=== PATIENT | female | born 1965 | race Caucasian/White ===

== ENCOUNTER 2017-08-13 10:39 | Emergency (ER) | payer MEDICAID ==
[~2017-08-13] VITALS: Ht 157.5 cm; Wt 55.0 kg
[~2017-08-13 10:39] MED LIST: ALBU8.5H4 IH; GOLYS PO; LANTUS SQ
[2017-08-13] MEDS ORDERED: morphine 4 MG/ML inj SYRINge IV ONE (10:50)
[2017-08-13] MEDS ORDERED: aspirin 81mg tab.chew PO ONE (10:50)
[2017-08-13] MEDS ORDERED: metoprolol tartrate 1mg/ml inj IV ONE (10:50)
[2017-08-13] MEDS ORDERED: nitroGLYCERIN 0.4mg SUBLingual tab SL PRN (10:50)
[2017-08-13] MEDS ORDERED: ondansetron/PF 4mg/2ml inj IV ONE (10:50)
[2017-08-13 11:06] LABS: BASOPHILS % (AUTO) 0.5 % (0-1); EOSINOPHILS # (AUTO) 0.2 X10'3 (0-0.9); EOSINOPHILS % (AUTO) 1.8 % (0-6); HEMATOCRIT 44.7 % (35.0-45.0); HEMOGLOBIN 15.4 g/dl (12.0-16.0); LYMPHOCYTES # (AUTO) 2.1 X10'3 (1.1-4.8); LYMPHOCYTES % (AUTO) 24.1 % (21-51); MEAN CORPUSCULAR HEMOGLOBIN 30.7 PG (27.0-31.0); MEAN CORPUSCULAR HGB CONC 34.4 % (33.0-36.5); MEAN CORPUSCULAR VOLUME 89.4 FL (78-98); MEAN PLATELET VOLUME 9.3 FL (7.4-10.4); MONOCYTES # (AUTO) 0.6 X10'3 (0-0.9); MONOCYTES % (AUTO) 6.6 % (2-12); NEUTROPHILS # (AUTO) 5.7 X10'3 (1.8-7.7); PLATELET COUNT 109 X10'3 (140-440); RED CELL DISTRIBUTION WIDTH 13.3 % (11.5-14.5); WHITE BLOOD COUNT 8.5 X10'3 (4.5-11.0)
[2017-08-13 11:12] LABS: INR 1.1 INR; PARTIAL THROMBOPLASTIN TIME 25 SECONDS (22-32); PROTHROMBIN TIME 11.3 SECONDS (9.0-12.0)
[2017-08-13 11:18] LABS: ALANINE AMINOTRANSFERASE 39 U/L (12-78); ALBUMIN 3.3 G/DL (3.4-5.0); ALBUMIN/GLOBULIN RATIO 0.9 (1.1-1.5); ANION GAP 10 (8-16); ASPARTATE AMINO TRANSFERASE 42 U/L (10-37); BILIRUBIN,TOTAL 0.6 MG/DL (0.1-1.0); BLOOD UREA NITROGEN 8 MG/DL (7-18); BUN/CREATININE RATIO 12.3 (6.6-38.0); CALCIUM 8.7 MG/DL (8.5-10.1); CHLORIDE 99 MMOL/L (99-107); CREATININE 0.65 MG/DL (0.40-0.90); GLUCOSE 428 MG/DL (70-104); POTASSIUM 3.6 MMOL/L (3.5-5.1); SODIUM 138 MMOL/L (135-145); TOTAL CARBON DIOXIDE 29.4 MMOL/L (24-32); TOTAL PROTEIN 7.1 G/DL (6.4-8.2); eGFR > 90 ML/MIN
[2017-08-13 11:19] LABS: ALKALINE PHOSPHATASE 177 IU/L (46-116)
[2017-08-13] MEDS ORDERED: furosemide 10 MG/1 ML 10ml inj IV ONE (11:40)
[2017-08-13] MEDS ORDERED: insulin regular, human 10 units/0.1 ml syringe IV ONE (11:40)
[2017-08-13 12:31] VITALS: BP 145/78
== END 2017-08-13 12:52 | disposition home or self-care (01) ==
LOC: ER 10:40
DX: R07.9 Chest pain, unspecified (principal); E11.65 Type 2 diabetes mellitus with hyperglycemia; I50.9 Heart failure, unspecified; I11.0 Hypertensive heart disease with heart failure; G35 Multiple sclerosis; J44.9 Chronic obstructive pulmonary disease, unspecified; M79.7 Fibromyalgia; Z98.890 Other specified postprocedural states; Z88.0 Allergy status to penicillin; Z79.4 Long term (current) use of insulin; Z90.89 Acquired absence of other organs
CPT/HCPCS: 36415; 71045; 80053; 82948; 83880; 84484; 85025; 85610; 85730; 93005; 96374; 96375; 99285; J1815; J1940; J2270; J2405; J3490

== ENCOUNTER 2017-09-05 15:48 | Emergency (ER) | payer MEDICAID ==
[~2017-09-05] VITALS: Ht 157.5 cm; Wt 54.0 kg
[2017-09-05] MEDS ORDERED: ketorolac trometh inj. 60 MG/2 ML VIAL IM ONE (16:10)
[2017-09-05] MEDS ORDERED: predniSONE 20 mg tablet PO ONE (16:10)
[2017-09-05] MEDS ORDERED: morphine 4 MG/ML inj SYRINge IM ONE (16:10)
[2017-09-05] MEDS ORDERED: PRED20TA PO (16:24)
[2017-09-05] MEDS ORDERED: IBUP-1984 PO (16:24)
[2017-09-05 17:12] VITALS: BP 151/84
== END 2017-09-05 17:00 | disposition home or self-care (01) ==
LOC: ER 15:48
DX: M53.3 Sacrococcygeal disorders, not elsewhere classified (principal); E11.9 Type 2 diabetes mellitus without complications; I50.9 Heart failure, unspecified; J44.9 Chronic obstructive pulmonary disease, unspecified; Z86.19 Personal history of other infectious and parasitic diseases; Z98.890 Other specified postprocedural states; Z90.89 Acquired absence of other organs; Z88.0 Allergy status to penicillin; Z79.899 Other long term (current) drug therapy; Z79.4 Long term (current) use of insulin
CPT/HCPCS: 93005; 96372; 99284; J1885; J2270; J7512

== ENCOUNTER 2021-04-10 00:57 | Emergency (ER) | payer MEDICAID ==
[~2021-04-10] VITALS: Ht 157.5 cm; Wt 63.6 kg
[~2021-04-10 00:57] MED LIST changes: -GOLYS PO; +INSU100V43 SQ; +SYRI-641 SUBCUT
[2021-04-10 01:18] VITALS: BP 176/92
[2021-04-10 02:04] LABS: BASOPHILS # (AUTO) 0.1 X10'3 (0-0.2); BASOPHILS % (AUTO) 0.8 % (0-1); EOSINOPHILS # (AUTO) 0.3 X10'3 (0-0.9); EOSINOPHILS % (AUTO) 3.9 % (0-6); HEMATOCRIT 45.7 % (35.0-45.0); HEMOGLOBIN 15.6 g/dl (12.0-16.0); LYMPHOCYTES # (AUTO) 2.4 X10'3 (1.1-4.8); MEAN CORPUSCULAR HEMOGLOBIN 29.5 PG (27.0-31.0); MEAN CORPUSCULAR HGB CONC 34.2 g/dL (33.0-36.5); MEAN CORPUSCULAR VOLUME 86.4 FL (78-98); MEAN PLATELET VOLUME 8.9 FL (7.4-10.4); MONOCYTES # (AUTO) 0.7 X10'3 (0-0.9); MONOCYTES % (AUTO) 8.2 % (2-12); NEUTROPHILS % (AUTO) 59.1 % (42-75); PLATELET COUNT 110 X10'3 (140-440); RED BLOOD COUNT 5.28 X10'6 (4.20-5.60); RED CELL DISTRIBUTION WIDTH 13.3 % (11.5-14.5); WHITE BLOOD COUNT 8.4 X10'3 (4.5-11.0)
[2021-04-10 02:33] LABS: ALANINE AMINOTRANSFERASE 53 U/L (12-78); ALBUMIN 3.2 G/DL (3.4-5.0); ALBUMIN/GLOBULIN RATIO 0.9 (1.1-1.5); ALKALINE PHOSPHATASE 187 IU/L (46-116); ANION GAP 10 (8-16); ASPARTATE AMINO TRANSFERASE 74 U/L (10-37); BILIRUBIN,TOTAL 0.7 MG/DL (0.1-1.0); BLOOD UREA NITROGEN 13 MG/DL (7-18); CALCIUM 8.9 MG/DL (8.5-10.1); CHLORIDE 101 MMOL/L (99-107); CREATININE 0.59 MG/DL (0.40-0.90); GLUCOSE 369 MG/DL (70-104); LIPASE 55 U/L (73-393); POTASSIUM 4.1 MMOL/L (3.5-5.1); SODIUM 137 MMOL/L (135-145); TOTAL CARBON DIOXIDE 26.2 MMOL/L (24-32); TOTAL PROTEIN 6.8 G/DL (6.4-8.2); eGFR > 90 ML/MIN
[2021-04-10 03:14] LABS: URINE HCG NEGATIVE (NEG)
[2021-04-10] MEDS ORDERED: bisacodyl 10mg suppository rectal RC ONE (03:15)
[2021-04-10 03:17] LABS: CLARITY,URINE SLIGHTLY CLOUDY (Clear); COLOR,URINE YELLOW (Yellow); GLUCOSE, URINE >=1000 mg/dl (Neg); KETONES,URINE NEGATIVE (Neg); LEUKOCYTE ESTERASE ,URINE NEGATIVE (Neg); NITRITES, URINE NEGATIVE (Neg); OCCULT BLOOD,URINE TRACE-INTACT (Neg); PH,URINE 5.5 (4.8-8.0); PROTEIN,URINE 100 mg/dl (Neg)
[2021-04-10 03:19] LABS: UA COLLECTION TYPE CLN CATCH MIDSTREAM
[2021-04-10] MEDS ORDERED: magnesium citrate 296ml oral solution PO ONE (03:35)
[2021-04-10 03:43] LABS: BACTERIA,URINE 1+ /HPF (Neg); MUCUS STRANDS FEW /LPF (Neg); SQUAMOUS EPITHELIAL CELL,UR MODERATE /LPF (FEW); TRANSITIONAL EPI CELLS,URINE FEW /HPF
== END 2021-04-10 03:59 | disposition home or self-care (01) ==
LOC: ER 00:58
DX: K59.00 Constipation, unspecified (principal); R10.84 Generalized abdominal pain; I50.9 Heart failure, unspecified; J44.9 Chronic obstructive pulmonary disease, unspecified; F17.200 Nicotine dependence, unspecified, uncomplicated; E11.9 Type 2 diabetes mellitus without complications; Z86.19 Personal history of other infectious and parasitic diseases; Z90.89 Acquired absence of other organs; Z98.890 Other specified postprocedural states; Z88.0 Allergy status to penicillin; Z79.4 Long term (current) use of insulin; Z79.899 Other long term (current) drug therapy
CPT/HCPCS: 36415; 74018; 80053; 81001; 81025; 83690; 85025; 87088; 99284

== ENCOUNTER 2021-08-11 19:11 | Emergency (ER) | payer MEDICAID ==
[~2021-08-11] VITALS: Ht 157.5 cm; Wt 57.7 kg
[2021-08-11] MEDS ORDERED: acetaminophen 325mg tablet PO STA (19:18)
[2021-08-11] MEDS ORDERED: CefTRIAXone 2gm/NS 100ml IVPB 100 ML IV ONE (19:20)
[2021-08-11] MEDS ORDERED: Insulin Reg/NS 100units/100mL 100 ML IV PRN (19:20)
[2021-08-11] MEDS ORDERED: normal saline 1000ML IV soln IV ONE ×2 (19:20→21:25)
[2021-08-11 19:44] LABS: BASOPHILS % (AUTO) 0.2 % (0-1); EOSINOPHILS % (AUTO) 0.2 % (0-6); HEMATOCRIT 45.5 % (35.0-45.0); HEMOGLOBIN 15.5 g/dl (12.0-16.0); LYMPHOCYTES # (AUTO) 0.7 X10'3 (1.1-4.8); LYMPHOCYTES % (AUTO) 5.2 % (21-51); MEAN CORPUSCULAR HEMOGLOBIN 29.3 PG (27.0-31.0); MEAN CORPUSCULAR VOLUME 86.2 FL (78-98); MEAN PLATELET VOLUME 10.3 FL (7.4-10.4); MONOCYTES # (AUTO) 0.8 X10'3 (0-0.9); NEUTROPHILS # (AUTO) 11.2 X10'3 (1.8-7.7); NEUTROPHILS % (AUTO) 88.4 % (42-75); PLATELET COUNT 75 X10'3 (140-440); RED BLOOD COUNT 5.28 X10'6 (4.20-5.60); RED CELL DISTRIBUTION WIDTH 13.5 % (11.5-14.5); WHITE BLOOD COUNT 12.7 X10'3 (4.5-11.0)
[2021-08-11 20:01] LABS: ABG BASE EXCESS -2.5 mmol/L (-2.0-2.0); ABG HCO3 20.2 mmol/L (22.0-26.0); ABG OXYGEN SATURATION 94.3 % (94-97); ABG PCO2 (T) 30.3 mmHg (32.0-45.0); ABG PO2 (T) 67.6 mmHg (75.0-100.0); ALLEN'S TEST POSITIVE; FCOHb 1.7 % (0.0-3.9); FMetHb 0.1 % (0.0-1.5); FO2Hb 92.6 % (94-97); PATIENT TEMPERATURE 37.2; TOTAL HEMOGLOBIN 15.2 G/dl (12.0-16.0)
[2021-08-11 20:02] LABS: PLATELET ESTIMATE DECREASED
[2021-08-11 20:04] LABS: LARGE PLATELETS FEW
[2021-08-11 20:10] LABS: ALANINE AMINOTRANSFERASE 41 U/L (12-78); ALBUMIN 3.1 G/DL (3.4-5.0); ALBUMIN/GLOBULIN RATIO 0.8 (1.1-1.5); ALKALINE PHOSPHATASE 102 IU/L (46-116); ANION GAP 10 (8-16); ASPARTATE AMINO TRANSFERASE 58 U/L (10-37); BILIRUBIN,TOTAL 1.3 MG/DL (0.1-1.0); BLOOD UREA NITROGEN 13 MG/DL (7-18); CHLORIDE 105 MMOL/L (99-107); CREATININE 0.62 MG/DL (0.40-0.90); GLUCOSE 296 MG/DL (70-104); MAGNESIUM 1.5 MG/DL (1.5-2.4); POTASSIUM 3.6 MMOL/L (3.5-5.1); SODIUM 138 MMOL/L (135-145); TOTAL PROTEIN 6.8 G/DL (6.4-8.2); eGFR > 90 ML/MIN
[2021-08-11] MEDS ORDERED: normal saline 1000ML IV soln IVB ONE (21:05)
[2021-08-11] MEDS ORDERED: dexamethasone sod phosphate 10mg/ml inj IV STA (21:25)
[2021-08-11 23:10] VITALS: BP 157/93
== END 2021-08-12 01:45 | disposition home or self-care (01) ==
LOC: ER 19:11
DX: U07.1 COVID-19 (principal); E11.9 Type 2 diabetes mellitus without complications; I50.9 Heart failure, unspecified; J44.9 Chronic obstructive pulmonary disease, unspecified; Z88.0 Allergy status to penicillin
CPT/HCPCS: 36415; 36600; 71045; 80053; 82803; 82948; 83605; 83735; 84145; 85008; 85018; 85025; 87040; 87502; 87503; 87635; 93005; 96365; 96375; 99285; C9803; J0696; J1100; J7030

== ENCOUNTER 2021-10-07 18:25 | Emergency (ER) | payer MEDICAID ==
[~2021-10-07] VITALS: Ht 157.5 cm; Wt 58.2 kg
[2021-10-07 18:31] VITALS: BP 136/84
--- NOTE | 2021-10-08 00:10 | NUR ---
PT ROOMED IN BED 11. ASSUMED CARE OF PT .
[2021-10-08] MEDS ORDERED: BACI28.42 TOP (00:23)
[2021-10-08] MEDS ORDERED: bacitracin 15gm ointment TP ONE (00:25)
== END 2021-10-08 02:30 | disposition home or self-care (01) ==
LOC: ER 18:26
DX: S90.822S Blister (nonthermal), left foot, sequela (principal); S90.821S Blister (nonthermal), right foot, sequela; X58.XXXS Exposure to other specified factors, sequela; I11.0 Hypertensive heart disease with heart failure; J44.9 Chronic obstructive pulmonary disease, unspecified; E11.9 Type 2 diabetes mellitus without complications; Z88.0 Allergy status to penicillin; Z79.899 Other long term (current) drug therapy; Z79.84 Long term (current) use of oral hypoglycemic drugs
CPT/HCPCS: 99284; A6446; A6449

== ENCOUNTER 2021-11-08 07:38 | Inpatient (IN) | payer MEDICAID ==
[~2021-11-08] VITALS: Ht 157.5 cm; Wt 54.5 kg
[~2021-11-08 07:38] MED LIST changes: +BACI28.42 TOP
[2021-11-08] MEDS ORDERED: LIDOcaine 40mg/ml topical solution MM ONE (10:25)
[2021-11-08] MEDS ORDERED: vancomycin/NS 1 GM ADD-VANTAGE 250 ML IV ONE (10:25)
[2021-11-08] MEDS ORDERED: LIDOcaine 4% (40 mg/ml) topical solution 50ml MM ONE (10:45)
[2021-11-08 11:23] LABS: BASOPHILS % (AUTO) 0.5 % (0-1); EOSINOPHILS # (AUTO) 0.2 X10'3 (0-0.9); EOSINOPHILS % (AUTO) 2.3 % (0-6); HEMATOCRIT 41.2 % (35.0-45.0); LYMPHOCYTES # (AUTO) 1.9 X10'3 (1.1-4.8); LYMPHOCYTES % (AUTO) 20.2 % (21-51); MEAN CORPUSCULAR HEMOGLOBIN 28.7 PG (27.0-31.0); MEAN CORPUSCULAR VOLUME 84.5 FL (78-98); MEAN PLATELET VOLUME 8.5 FL (7.4-10.4); MONOCYTES # (AUTO) 0.8 X10'3 (0-0.9); MONOCYTES % (AUTO) 8.5 % (2-12); NEUTROPHILS # (AUTO) 6.6 X10'3 (1.8-7.7); NEUTROPHILS % (AUTO) 68.5 % (42-75); PLATELET COUNT 113 X10'3 (140-440); RED BLOOD COUNT 4.88 X10'6 (4.20-5.60); RED CELL DISTRIBUTION WIDTH 13.8 % (11.5-14.5); WHITE BLOOD COUNT 9.6 X10'3 (4.5-11.0)
[2021-11-08 11:36] LABS: ALANINE AMINOTRANSFERASE 37 U/L (12-78); ALBUMIN 2.7 G/DL (3.4-5.0); ALBUMIN/GLOBULIN RATIO 0.6 (1.1-1.5); ALKALINE PHOSPHATASE 110 IU/L (46-116); ANION GAP 8 (8-16); ASPARTATE AMINO TRANSFERASE 54 U/L (10-37); BILIRUBIN,TOTAL 0.6 MG/DL (0.1-1.0); BLOOD UREA NITROGEN 13 MG/DL (7-18); BUN/CREATININE RATIO 22.8 (6.6-38.0); CALCIUM 9.2 MG/DL (8.5-10.1); CHLORIDE 98 MMOL/L (99-107); CREATININE 0.57 MG/DL (0.40-0.90); GLUCOSE 361 MG/DL (70-104); POTASSIUM 3.3 MMOL/L (3.5-5.1); SODIUM 134 MMOL/L (135-145); TOTAL CARBON DIOXIDE 28.4 MMOL/L (24-32); TOTAL PROTEIN 7.1 G/DL (6.4-8.2); eGFR > 90 ML/MIN
[2021-11-08] MEDS ORDERED: MESSAGE TO PHARMACY PO ONE (15:10)
[2021-11-08] MEDS ORDERED: HYDROcodone/acetaminophen 5mg/325mg tablet PO PRN (15:10)
[2021-11-08] MEDS ORDERED: insulin Lispro (HumaLOG) vial - multi-dose SQ SCH (15:10)
[2021-11-08] MEDS ORDERED: morphine 2 MG/ML inj. syringe IV PRN ×2 (15:10)
[2021-11-08] MEDS ORDERED: glucagon, human recombinant 1mg kit SUBCUT PRN (15:10)
[2021-11-08] MEDS ORDERED: DEXTROSE 15 GM of carb/4 tabs (each vial/BOTTLE has 4 tablets) PO PRN ×2 (15:10)
[2021-11-08] MEDS ORDERED: magnesium hydroxide 30ml (MOM) UD suspension PO PRN (15:10)
[2021-11-08] MEDS ORDERED: mag hydrox/Alum hydrox/simeth 30ml oral suspension PO PRN (15:10)
[2021-11-08] MEDS ORDERED: ondansetron/PF 4mg/2ml inj IV PRN (15:10)
[2021-11-08] MEDS ORDERED: HYDROcodone/acetaminophen 10/325mg tab PO PRN (15:10)
[2021-11-08] MEDS ORDERED: acetaminophen 325mg tablet PO PRN ×2 (15:10)
[2021-11-08] MEDS ORDERED: dextrose 50%-water 50ml dispensing syringe IV PRN ×2 (15:10)
[2021-11-08] MEDS: normal saline 1000ml 1,000 ML IV SCH ×2 (15:16→18:04)
[2021-11-08 15:59] LABS: HEMOGLOBIN A1C 10.2 % (4.5-6.2)
[2021-11-08] MEDS ORDERED: ALBU2.5V12 NEB (16:23)
[2021-11-08] MEDS ORDERED: ALBU8.5H17 INH (16:23)
--- NOTE | 2021-11-08 18:17 | NUR ---
left message with dietary, dinner tray is missing
[2021-11-08] MEDS: docusate sod 100mg capsule PO SCH (19:13)
[2021-11-08] MEDS ORDERED: insulin glargine (Lantus) pen - multi-dose SQ SCH (21:00)
[2021-11-08] MEDS: vancomycin/NS 1 GM ADD-VANTAGE 250 ML IV SCH (23:27)
[2021-11-09 01:47] LABS: BASOPHILS # (AUTO) 0.1 X10'3 (0-0.2); BASOPHILS % (AUTO) 0.8 % (0-1); EOSINOPHILS # (AUTO) 0.4 X10'3 (0-0.9); HEMATOCRIT 37.1 % (35.0-45.0); HEMOGLOBIN 12.5 g/dl (12.0-16.0); LYMPHOCYTES # (AUTO) 1.8 X10'3 (1.1-4.8); LYMPHOCYTES % (AUTO) 20.2 % (21-51); MEAN CORPUSCULAR HEMOGLOBIN 28.7 PG (27.0-31.0); MEAN CORPUSCULAR HGB CONC 33.7 g/dL (33.0-36.5); MEAN CORPUSCULAR VOLUME 85.1 FL (78-98); MEAN PLATELET VOLUME 8.2 FL (7.4-10.4); MONOCYTES # (AUTO) 0.8 X10'3 (0-0.9); MONOCYTES % (AUTO) 8.8 % (2-12); NEUTROPHILS # (AUTO) 5.8 X10'3 (1.8-7.7); NEUTROPHILS % (AUTO) 66.2 % (42-75); PLATELET COUNT 107 X10'3 (140-440); RED BLOOD COUNT 4.36 X10'6 (4.20-5.60); RED CELL DISTRIBUTION WIDTH 13.8 % (11.5-14.5); WHITE BLOOD COUNT 8.8 X10'3 (4.5-11.0)
[2021-11-09 02:02] LABS: ALBUMIN 2.3 G/DL (3.4-5.0); ANION GAP 10 (8-16); BLOOD UREA NITROGEN 10 MG/DL (7-18); BUN/CREATININE RATIO 22.7 (6.6-38.0); CALCIUM 8.3 MG/DL (8.5-10.1); CHLORIDE 103 MMOL/L (99-107); CREATININE 0.44 MG/DL (0.40-0.90); GLUCOSE 214 MG/DL (70-104); POTASSIUM 3.3 MMOL/L (3.5-5.1); SODIUM 138 MMOL/L (135-145); TOTAL CARBON DIOXIDE 25.5 MMOL/L (24-32); eGFR > 90 ML/MIN
[2021-11-09] MEDS ORDERED: potassium Cl 20 mEq SR tablet PO PRN ×2 (02:25)
[2021-11-09] MEDS ORDERED: potassium Cl 40MEQ/1/2NS 520ml 520 ML IV PRN ×2 (02:25)
[2021-11-09] MEDS ORDERED: potassium cl 20mEq in 1/2 NS 1,000 ML IV PRN (03:10)
[2021-11-09] MEDS: docusate sod 100mg capsule PO SCH (07:06)
[2021-11-09] MEDS ORDERED: K and/or MAG REPLACEMENT MC SCH (08:00)
[2021-11-09] MEDS ORDERED: enoxaparin 40mg/0.4ml syringe SUBCUT SCH (08:00)
--- NOTE | 2021-11-09 10:32 | NUR ---
WOUND CARE NURSE CONSULTED/TREATED PT. THEY RECOMMENDED DIFLUCAN DOSE PRIOR TO D/C FOR PT, WELL , 5 ABD BANDAGES, AND GAUZE TO BE SENT HOME WITH PT.
[2021-11-09] MEDS: vancomycin/NS 1 GM ADD-VANTAGE 250 ML IV SCH (11:10)
[2021-11-09] MEDS: normal saline 1000ml 1,000 ML IV SCH (11:18)
[2021-11-09] MEDS ORDERED: FLUC200T PO (12:41)
[2021-11-09] MEDS ORDERED: CLIN300C53 PO (12:41)
--- NOTE | 2021-11-09 13:35 | NUR ---
DIABETIC FOOT CARE EDUCATION PROVIDED BY WOUND CARE * Wash your feet daily with lukewarm water and soap. * Dry your feet well, especially between the toes. * Keep the skin moisturized with lotion, but do not apply it between the toes. * Check your feet for blisters, cuts or sores. * Use an emery board to shape your toenails even with the ends of your toes. * Change daily into clean, soft socks or stockings, not too big or too small. * Keep your feet warm and dry. * Preferably wear special padded socks and shoes that fit well. * Never walk barefoot indoors or outdoors. * Examine your shoes everyday for cracks, fer, nails or anything that could hurt your feet. * Tell your doctor if you find any of these problems or have any concerns after examining your feet. Addendum: 11/09/21 at 1335 by Aminta Lopez RN Amended: Links added.
[2021-11-09 13:43] VITALS: BP 128/82
[2021-11-09] MEDS ORDERED: VANCOMYCIN LEVEL IV ONE (22:30)
== END 2021-11-09 13:43 | disposition home or self-care (01) | DRG 385 ==
LOC: ER 07:38 → ED HOLD 15:10 → UNDOADMIN 15:10 → ED HOLD 11-09 09:36 → UNDODISIN 11-09 13:43
PROVIDERS: ADMIT Internal Medicine; ATTEND Internal Medicine
DX: N61.1 Abscess of the breast and nipple (principal); B37.89 Other sites of candidiasis; E11.9 Type 2 diabetes mellitus without complications; J44.9 Chronic obstructive pulmonary disease, unspecified; T63.301A Toxic effect of unspecified spider venom, accidental (unintentional), initial encounter; Z79.4 Long term (current) use of insulin; Z87.891 Personal history of nicotine dependence; Y92.89 Other specified places as the place of occurrence of the external cause; Z88.0 Allergy status to penicillin; Z79.899 Other long term (current) drug therapy
CPT/HCPCS: 36415; 80048; 80053; 82948; 83036; 83605; 85025; 87040; 87070; 87077; 87186; 96365; 99285; A6449; G0378; J1650; J1815; J3370; J3480; J7030

== ENCOUNTER 2022-01-30 10:22 | Emergency (ER) | payer MEDICAID ==
[~2022-01-30] VITALS: Ht 157.5 cm; Wt 59.0 kg
[~2022-01-30 10:22] MED LIST changes: +ALBU2.5V12 NEB; -ALBU8.5H4 IH; -BACI28.42 TOP; +FLUC200T PO; -SYRI-641 SUBCUT
[2022-01-30 12:13] VITALS: BP 126/70
[2022-01-30] MEDS ORDERED: SULF1TAB45 PO ×2 (12:53)
== END 2022-01-30 13:31 | disposition home or self-care (01) ==
LOC: ER 10:22
DX: L08.9 Local infection of the skin and subcutaneous tissue, unspecified (principal); I50.9 Heart failure, unspecified; J43.9 Emphysema, unspecified; E11.9 Type 2 diabetes mellitus without complications; Z86.19 Personal history of other infectious and parasitic diseases; Z90.89 Acquired absence of other organs; Z98.890 Other specified postprocedural states; Z88.0 Allergy status to penicillin; Z79.4 Long term (current) use of insulin; Z79.2 Long term (current) use of antibiotics; Z79.899 Other long term (current) drug therapy
CPT/HCPCS: 82948; 99283; 99285

== ENCOUNTER 2022-01-31 16:21 | Inpatient (IN) | payer MEDICAID ==
[~2022-01-31] VITALS: Ht 157.5 cm; Wt 56.8 kg
[~2022-01-31 16:21] MED LIST changes: +SULF1TAB45 PO
[2022-01-31] MEDS ORDERED: acetaminophen 325mg tablet PO STA (16:23)
[2022-01-31] MEDS ORDERED: normal saline 1000ML IV soln IV ONE (16:25)
[2022-01-31] MEDS ORDERED: CefTRIAXone 2gm/D5W 50ml BAG 50 ML IV ONE (16:25)
[2022-01-31 16:59] LABS: COLOR,URINE YELLOW (Yellow); GLUCOSE, URINE >=1000 mg/dl (Neg); KETONES,URINE NEGATIVE (Neg); LEUKOCYTE ESTERASE ,URINE NEGATIVE (Neg); NITRITES, URINE NEGATIVE (Neg); OCCULT BLOOD,URINE SMALL (Neg); PROTEIN,URINE 100 mg/dl (Neg)
[2022-01-31 17:01] LABS: UA COLLECTION TYPE STRAIGHT CATH
[2022-01-31 17:02] LABS: CLARITY,URINE SLIGHTLY CLOUDY (Clear)
[2022-01-31 17:05] LABS: BASOPHILS # (AUTO) 0.1 X10'3 (0-0.2); EOSINOPHILS % (AUTO) 0.6 % (0-6); HEMATOCRIT 44.2 % (35.0-45.0); HEMOGLOBIN 14.8 g/dl (12.0-16.0); LYMPHOCYTES # (AUTO) 0.7 X10'3 (1.1-4.8); LYMPHOCYTES % (AUTO) 9.8 % (21-51); MEAN CORPUSCULAR HEMOGLOBIN 28.2 PG (27.0-31.0); MEAN CORPUSCULAR HGB CONC 33.4 g/dL (33.0-36.5); MEAN CORPUSCULAR VOLUME 84.4 FL (78-98); MEAN PLATELET VOLUME 8.6 FL (7.4-10.4); MONOCYTES # (AUTO) 0.4 X10'3 (0-0.9); MONOCYTES % (AUTO) 5.2 % (2-12); NEUTROPHILS # (AUTO) 6.2 X10'3 (1.8-7.7); NEUTROPHILS % (AUTO) 82.4 % (42-75); PLATELET COUNT 121 X10'3 (140-440); RED BLOOD COUNT 5.24 X10'6 (4.20-5.60); RED CELL DISTRIBUTION WIDTH 13.8 % (11.5-14.5); WHITE BLOOD COUNT 7.5 X10'3 (4.5-11.0)
[2022-01-31 17:06] LABS: ALANINE AMINOTRANSFERASE 20 U/L (12-78); ALBUMIN 2.7 G/DL (3.4-5.0); ALBUMIN/GLOBULIN RATIO 0.6 (1.1-1.5); ALKALINE PHOSPHATASE 94 IU/L (46-116); ANION GAP 12 (8-16); ASPARTATE AMINO TRANSFERASE 39 U/L (10-37); BILIRUBIN,TOTAL 0.8 MG/DL (0.1-1.0); BLOOD UREA NITROGEN 8 MG/DL (7-18); BUN/CREATININE RATIO 12.9 (6.6-38.0); CALCIUM 8.8 MG/DL (8.5-10.1); CHLORIDE 95 MMOL/L (99-107); CREATININE 0.62 MG/DL (0.40-0.90); GLUCOSE 258 MG/DL (70-104); MAGNESIUM 1.6 MG/DL (1.5-2.4); POTASSIUM 3.7 MMOL/L (3.5-5.1); SODIUM 132 MMOL/L (135-145); TOTAL CARBON DIOXIDE 25.3 MMOL/L (24-32); TOTAL PROTEIN 7.2 G/DL (6.4-8.2); eGFR > 90 ML/MIN
[2022-01-31 17:06] LABS: SQUAMOUS EPITHELIAL CELL,UR FEW /LPF (FEW)
[2022-01-31 17:09] LABS: BACTERIA,URINE FEW /HPF (Neg); WBC,URINE 0-4 /HPF (0-4)
[2022-01-31] MEDS ORDERED: HYDROmorphone inj. 0.5 MG/0.5 ML DISP.SYRIN IV PRN (17:20)
[2022-01-31] MEDS ORDERED: HYDROmorphone/PF 0.2 MG/ML SYRINGE IV PRN (17:20)
[2022-01-31] MEDS ORDERED: bisacodyl 10mg suppository rectal RC PRN (17:20)
[2022-01-31] MEDS ORDERED: ondansetron/PF 4mg/2ml inj IV PRN (17:20)
[2022-01-31] MEDS ORDERED: magnesium hydroxide 30ml (MOM) UD suspension PO PRN (17:20)
[2022-01-31] MEDS ORDERED: mag hydrox/Alum hydrox/simeth 30ml oral suspension PO PRN (17:20)
[2022-01-31] MEDS ORDERED: HYDROcodone/acetaminophen 10/325mg tab PO PRN (17:20)
[2022-01-31] MEDS ORDERED: PERFLUTREN PROTEIN-A MICROSPHR (Optison) 0.22 MG/ML 3ML VIAL IV ONE (17:20)
[2022-01-31] MEDS ORDERED: magnesium 4gm in 100ml NS 100 ML IV PRN (17:20)
[2022-01-31] MEDS ORDERED: acetaminophen 325mg tablet PO PRN ×2 (17:20)
[2022-01-31] MEDS ORDERED: potassium Cl 40MEQ/1/2NS 520ml 520 ML IV PRN (17:20)
[2022-01-31] MEDS ORDERED: magnesium Cl slow-release 64mg tablet PO PRN (17:20)
[2022-01-31] MEDS: normal saline 1000ml 1,000 ML IV SCH (17:20)
[2022-01-31] MEDS ORDERED: ondansetron 4mg rapidly disintigrating tab PO PRN (17:20)
[2022-01-31] MEDS ORDERED: potassium Cl 20 mEq SR tablet PO PRN ×2 (17:20)
--- NOTE | 2022-01-31 17:40 | NUR ---
Dr Mercado at bedside to assess patient at this time, aware of HR 145, and temp 104 via bladder. Patient groaning, MD akhil to enter additional orders all safety measures in place.
[2022-01-31 17:56] LABS: PHOSPHORUS 1.9 MG/DL (2.3-4.5)
[2022-01-31] MEDS ORDERED: azithromycin/NS 500mg/250ml 250 ML IV ONE (18:03)
--- NOTE | 2022-01-31 19:10 | NUR ---
patson administration time incorrect
[2022-01-31] MEDS: K and/or MAG REPLACEMENT MC SCH (19:38)
[2022-01-31] MEDS ORDERED: temazepam 15mg capsule PO PRN (21:00)
[2022-01-31] MEDS ORDERED: dextrose 50%-water 50ml dispensing syringe IV PRN ×2 (21:30)
[2022-01-31] MEDS ORDERED: DEXTROSE 15 GM of carb/4 tabs (each vial/BOTTLE has 4 tablets) PO PRN ×2 (21:30)
[2022-01-31] MEDS ORDERED: glucagon, human recombinant 1mg kit SUBCUT PRN (21:30)
[2022-01-31] MEDS ORDERED: MESSAGE TO PHARMACY PO ONE (21:30)
[2022-01-31 21:48] LABS: HEMOGLOBIN A1C 11.5 % (4.5-6.2)
[2022-01-31] MEDS: docusate sod 100mg capsule PO SCH (23:13)
[2022-01-31] MEDS: oseltamivir phos 75mg capsule PO SCH (23:13)
[2022-01-31] MEDS: enoxaparin 40mg/0.4ml syringe SQ SCH (23:15)
[2022-02-01] MEDS: normal saline 1000ml 1,000 ML IV SCH ×3 (03:20→23:56)
[2022-02-01 04:31] LABS: BASOPHILS % (AUTO) 0.3 % (0-1); EOSINOPHILS % (AUTO) 0 % (0-6); HEMATOCRIT 39.6 % (35.0-45.0); HEMOGLOBIN 13.1 g/dl (12.0-16.0); LYMPHOCYTES # (AUTO) 1.1 X10'3 (1.1-4.8); LYMPHOCYTES % (AUTO) 6.4 % (21-51); MEAN CORPUSCULAR HEMOGLOBIN 27.9 PG (27.0-31.0); MEAN CORPUSCULAR HGB CONC 33.2 g/dL (33.0-36.5); MEAN CORPUSCULAR VOLUME 84.3 FL (78-98); MEAN PLATELET VOLUME 8.7 FL (7.4-10.4); MONOCYTES # (AUTO) 1.1 X10'3 (0-0.9); MONOCYTES % (AUTO) 6.1 % (2-12); NEUTROPHILS # (AUTO) 15.7 X10'3 (1.8-7.7); NEUTROPHILS % (AUTO) 87.2 % (42-75); PLATELET COUNT 112 X10'3 (140-440); RED CELL DISTRIBUTION WIDTH 13.8 % (11.5-14.5)
[2022-02-01 04:46] LABS: ALANINE AMINOTRANSFERASE 15 U/L (12-78); ALBUMIN 2.1 G/DL (3.4-5.0); ALBUMIN/GLOBULIN RATIO 0.6 (1.1-1.5); ALKALINE PHOSPHATASE 81 IU/L (46-116); ANION GAP 9 (8-16); ASPARTATE AMINO TRANSFERASE 34 U/L (10-37); BILIRUBIN,TOTAL 0.8 MG/DL (0.1-1.0); BLOOD UREA NITROGEN 10 MG/DL (7-18); BUN/CREATININE RATIO 16.7 (6.6-38.0); CALCIUM 7.6 MG/DL (8.5-10.1); CHLORIDE 100 MMOL/L (99-107); GLUCOSE 228 MG/DL (70-104); MAGNESIUM 1.5 MG/DL (1.5-2.4); SODIUM 134 MMOL/L (135-145); TOTAL CARBON DIOXIDE 25.2 MMOL/L (24-32); TOTAL PROTEIN 5.9 G/DL (6.4-8.2); eGFR > 90 ML/MIN
[2022-02-01] MEDS: K and/or MAG REPLACEMENT MC SCH ×2 (07:00→20:00)
[2022-02-01] MEDS: docusate sod 100mg capsule PO SCH ×2 (09:12→22:15)
[2022-02-01] MEDS: azithromycin/NS 500mg/250ml 250 ML IV SCH (09:14)
[2022-02-01] MEDS: CefTRIAXone/D5W-Rocephin 1gm 50 ML IV SCH (09:14)
[2022-02-01] MEDS: insulin Lispro (HumaLOG) vial - multi-dose SQ SCH ×2 (09:20→13:25)
[2022-02-01] MEDS: oseltamivir phos 75mg capsule PO SCH ×2 (09:22→22:16)
[2022-02-01] MEDS: ipratropium/albuterol 3ml nebule NEB PRN (11:15)
--- NOTE | 2022-02-01 13:39 | NUR ---
Wound care in pt room at this time, they are working on her right leg wound.
[2022-02-01] MEDS: enoxaparin 40mg/0.4ml syringe SQ SCH (22:16)
[2022-02-01] MEDS: nystatin 15 GM powder TP SCH (22:20)
[2022-02-01] MEDS: insulin glargine (Lantus) pen - multi-dose SQ SCH (23:34)
[2022-02-02 04:38] LABS: BASOPHILS % (AUTO) 0.2 % (0-1); EOSINOPHILS # (AUTO) 0.1 X10'3 (0-0.9); EOSINOPHILS % (AUTO) 1.2 % (0-6); HEMOGLOBIN 12.6 g/dl (12.0-16.0); LYMPHOCYTES # (AUTO) 1.9 X10'3 (1.1-4.8); LYMPHOCYTES % (AUTO) 15.4 % (21-51); MEAN CORPUSCULAR HEMOGLOBIN 28.7 PG (27.0-31.0); MEAN CORPUSCULAR VOLUME 84.2 FL (78-98); MEAN PLATELET VOLUME 8.4 FL (7.4-10.4); MONOCYTES # (AUTO) 0.6 X10'3 (0-0.9); NEUTROPHILS # (AUTO) 9.4 X10'3 (1.8-7.7); NEUTROPHILS % (AUTO) 78.2 % (42-75); PLATELET COUNT 102 X10'3 (140-440); RED BLOOD COUNT 4.39 X10'6 (4.20-5.60); RED CELL DISTRIBUTION WIDTH 14.1 % (11.5-14.5)
[2022-02-02 05:00] LABS: ALBUMIN 2.1 G/DL (3.4-5.0); ALBUMIN/GLOBULIN RATIO 0.5 (1.1-1.5); ALKALINE PHOSPHATASE 85 IU/L (46-116); ANION GAP 8 (8-16); ASPARTATE AMINO TRANSFERASE 30 U/L (10-37); BILIRUBIN,TOTAL 0.4 MG/DL (0.1-1.0); BLOOD UREA NITROGEN 18 MG/DL (7-18); CALCIUM 8.1 MG/DL (8.5-10.1); CHLORIDE 101 MMOL/L (99-107); CREATININE 0.62 MG/DL (0.40-0.90); GLUCOSE 206 MG/DL (70-104); MAGNESIUM 1.7 MG/DL (1.5-2.4); POTASSIUM 3.5 MMOL/L (3.5-5.1); SODIUM 133 MMOL/L (135-145); TOTAL CARBON DIOXIDE 24.5 MMOL/L (24-32); eGFR > 90 ML/MIN
[2022-02-02 06:04] LABS: ALANINE AMINOTRANSFERASE 16 U/L (12-78)
[2022-02-02 07:12] VITALS: BP 126/73
--- NOTE | 2022-02-02 07:12 | NUR ---
Patient in room [facility]. I have received report from INTEGRATED CAMPAIGN MANAGER and had the opportunity to ask questions and assume patient care.
[2022-02-02] MEDS: K and/or MAG REPLACEMENT MC SCH ×2 (08:00→20:00)
[2022-02-02] MEDS: docusate sod 100mg capsule PO SCH ×2 (08:00→21:30)
[2022-02-02] MEDS: CefTRIAXone/D5W-Rocephin 1gm 50 ML IV SCH (09:32)
[2022-02-02] MEDS: nystatin 15 GM powder TP SCH ×3 (09:35→21:33)
[2022-02-02] MEDS: oseltamivir phos 75mg capsule PO SCH ×2 (09:35→21:30)
[2022-02-02] MEDS: azithromycin/NS 500mg/250ml 250 ML IV SCH (09:38)
[2022-02-02] MEDS: insulin Lispro (HumaLOG) vial - multi-dose SQ SCH ×2 (14:30→19:31)
[2022-02-02] MEDS: normal saline 1000ml 1,000 ML IV SCH ×2 (15:46→19:20)
[2022-02-02] MEDS: HYDROcodone/acetaminophen 5mg/325mg tablet PO PRN (15:47)
[2022-02-02 18:00] VITALS: BP 141/68
--- NOTE | 2022-02-02 18:35 | NUR ---
Patient in room [facility]. I have received report from Guerda LANDRY and had the opportunity to ask questions and assume patient care.
--- NOTE | 2022-02-02 18:40 | NUR ---
All cares given to patient dressing changed. norco x1 for pain in right leg. Report given to Connie LANDRY
[2022-02-02] MEDS: insulin glargine (Lantus) pen - multi-dose SQ SCH (21:00)
--- NOTE | 2022-02-02 21:30 | NUR ---
Patient had a low blood sugar of 51. Gave dextrose 25gm along with an cheese and crackers and a sandwich.
[2022-02-02] MEDS: enoxaparin 40mg/0.4ml syringe SQ SCH (21:32)
[2022-02-02 22:00] VITALS: BP 149/61
[2022-02-03] MEDS: normal saline 1000ml 1,000 ML IV SCH ×3 (05:20→23:04)
--- NOTE | 2022-02-03 06:15 | NUR ---
Problems reprioritized. Patient report given, questions answered & plan of care reviewed with Daniela LANDRY.
[2022-02-03 06:44] LABS: BASOPHILS # (AUTO) 0.1 X10'3 (0-0.2); BASOPHILS % (AUTO) 0.7 % (0-1); EOSINOPHILS # (AUTO) 0.1 X10'3 (0-0.9); EOSINOPHILS % (AUTO) 1.3 % (0-6); HEMATOCRIT 39.3 % (35.0-45.0); HEMOGLOBIN 13.2 g/dl (12.0-16.0); LYMPHOCYTES # (AUTO) 1.5 X10'3 (1.1-4.8); MEAN CORPUSCULAR HEMOGLOBIN 28.4 PG (27.0-31.0); MEAN CORPUSCULAR HGB CONC 33.5 g/dL (33.0-36.5); MEAN CORPUSCULAR VOLUME 84.7 FL (78-98); MEAN PLATELET VOLUME 9.1 FL (7.4-10.4); MONOCYTES # (AUTO) 0.5 X10'3 (0-0.9); MONOCYTES % (AUTO) 5.3 % (2-12); NEUTROPHILS # (AUTO) 6.4 X10'3 (1.8-7.7); NEUTROPHILS % (AUTO) 74.7 % (42-75); PLATELET COUNT 112 X10'3 (140-440); RED BLOOD COUNT 4.65 X10'6 (4.20-5.60); RED CELL DISTRIBUTION WIDTH 14.2 % (11.5-14.5); WHITE BLOOD COUNT 8.5 X10'3 (4.5-11.0)
[2022-02-03 07:00] VITALS: BP 150/90
[2022-02-03 07:34] LABS: ALANINE AMINOTRANSFERASE 12 U/L (12-78); ALBUMIN 2.1 G/DL (3.4-5.0); ALBUMIN/GLOBULIN RATIO 0.5 (1.1-1.5); ALKALINE PHOSPHATASE 108 IU/L (46-116); ANION GAP 10 (8-16); ASPARTATE AMINO TRANSFERASE 27 U/L (10-37); BILIRUBIN,TOTAL 0.3 MG/DL (0.1-1.0); BLOOD UREA NITROGEN 19 MG/DL (7-18); BUN/CREATININE RATIO 39.6 (6.6-38.0); CALCIUM 8.4 MG/DL (8.5-10.1); CHLORIDE 103 MMOL/L (99-107); CREATININE 0.48 MG/DL (0.40-0.90); GLUCOSE 218 MG/DL (70-104); MAGNESIUM 1.8 MG/DL (1.5-2.4); SODIUM 135 MMOL/L (135-145); TOTAL CARBON DIOXIDE 22.4 MMOL/L (24-32); TOTAL PROTEIN 6.2 G/DL (6.4-8.2); eGFR > 90 ML/MIN
[2022-02-03 07:35] LABS: POTASSIUM 3.6 MMOL/L (3.5-5.1)
[2022-02-03] MEDS: K and/or MAG REPLACEMENT MC SCH ×2 (08:00→20:00)
[2022-02-03] MEDS: CefTRIAXone/D5W-Rocephin 1gm 50 ML IV SCH (08:02)
[2022-02-03] MEDS: docusate sod 100mg capsule PO SCH ×2 (08:02→20:01)
[2022-02-03] MEDS: oseltamivir phos 75mg capsule PO SCH ×2 (08:02→20:01)
[2022-02-03] MEDS: HYDROcodone/acetaminophen 5mg/325mg tablet PO PRN ×2 (08:05→20:21)
[2022-02-03] MEDS: nystatin 15 GM powder TP SCH ×3 (08:09→23:03)
--- NOTE | 2022-02-03 08:35 | NUR ---
PAGE SENT TO RT... 352 Karl BATES: PATIENT REQUESTING PRN TREATMENT WHENEVER YOU GET A CHANCE :) THANKS!
[2022-02-03] MEDS: ipratropium/albuterol 3ml nebule NEB PRN ×2 (08:55→12:01)
[2022-02-03] MEDS: azithromycin/NS 500mg/250ml 250 ML IV SCH (09:01)
[2022-02-03 11:39] VITALS: BP 165/95
[2022-02-03] MEDS: insulin Lispro (HumaLOG) vial - multi-dose SQ SCH ×2 (13:31→20:00)
[2022-02-03 18:00] VITALS: BP 126/65
--- NOTE | 2022-02-03 18:25 | NUR ---
Problems reprioritized. Patient report given, questions answered & plan of care reviewed with GRIS Rosales.
--- NOTE | 2022-02-03 18:35 | NUR ---
Patient in room [facility]. I have received report from Daniela LANDRY and had the opportunity to ask questions and assume patient care.
[2022-02-03] MEDS: enoxaparin 40mg/0.4ml syringe SQ SCH (20:01)
[2022-02-03] MEDS: ipratropium/albuterol 3ml nebule NEB SCH ×2 (20:54→23:39)
[2022-02-03 22:00] VITALS: BP 156/84
[2022-02-03] MEDS: insulin glargine (Lantus) pen - multi-dose SQ SCH (22:59)
[2022-02-04] MEDS: ipratropium/albuterol 3ml nebule NEB SCH ×4 (04:00→14:39)
[2022-02-04] MEDS: HYDROcodone/acetaminophen 5mg/325mg tablet PO PRN (04:56)
--- NOTE | 2022-02-04 06:15 | NUR ---
Problems reprioritized. Patient report given, questions answered & plan of care reviewed with Daniela LANDRY.
[2022-02-04 06:22] LABS: BASOPHILS % (AUTO) 0.5 % (0-1); EOSINOPHILS # (AUTO) 0.1 X10'3 (0-0.9); EOSINOPHILS % (AUTO) 1.8 % (0-6); HEMATOCRIT 37.2 % (35.0-45.0); HEMOGLOBIN 12.3 g/dl (12.0-16.0); LYMPHOCYTES # (AUTO) 1.4 X10'3 (1.1-4.8); LYMPHOCYTES % (AUTO) 21.7 % (21-51); MEAN CORPUSCULAR HEMOGLOBIN 27.9 PG (27.0-31.0); MEAN CORPUSCULAR HGB CONC 32.9 g/dL (33.0-36.5); MEAN CORPUSCULAR VOLUME 84.9 FL (78-98); MEAN PLATELET VOLUME 8.7 FL (7.4-10.4); MONOCYTES # (AUTO) 0.4 X10'3 (0-0.9); MONOCYTES % (AUTO) 5.5 % (2-12); NEUTROPHILS # (AUTO) 4.6 X10'3 (1.8-7.7); NEUTROPHILS % (AUTO) 70.5 % (42-75); PLATELET COUNT 115 X10'3 (140-440); RED BLOOD COUNT 4.39 X10'6 (4.20-5.60); RED CELL DISTRIBUTION WIDTH 14.2 % (11.5-14.5); WHITE BLOOD COUNT 6.6 X10'3 (4.5-11.0)
[2022-02-04 06:47] LABS: ALANINE AMINOTRANSFERASE 9 U/L (12-78); ALBUMIN 2.1 G/DL (3.4-5.0); ALBUMIN/GLOBULIN RATIO 0.5 (1.1-1.5); ALKALINE PHOSPHATASE 89 IU/L (46-116); ANION GAP 10 (8-16); ASPARTATE AMINO TRANSFERASE 27 U/L (10-37); BILIRUBIN,TOTAL 0.2 MG/DL (0.1-1.0); BLOOD UREA NITROGEN 19 MG/DL (7-18); BUN/CREATININE RATIO 41.3 (6.6-38.0); CALCIUM 8.2 MG/DL (8.5-10.1); CHLORIDE 106 MMOL/L (99-107); CREATININE 0.46 MG/DL (0.40-0.90); GLUCOSE 146 MG/DL (70-104); MAGNESIUM 1.7 MG/DL (1.5-2.4); POTASSIUM 3.2 MMOL/L (3.5-5.1); SODIUM 139 MMOL/L (135-145); TOTAL CARBON DIOXIDE 23.1 MMOL/L (24-32); eGFR > 90 ML/MIN
[2022-02-04 07:00] VITALS: BP 148/88
[2022-02-04] MEDS: K and/or MAG REPLACEMENT MC SCH (08:00)
[2022-02-04] MEDS ORDERED: azithromycin 250mg tablet PO SCH (08:00)
[2022-02-04] MEDS: nystatin 15 GM powder TP SCH ×2 (08:00→13:44)
[2022-02-04] MEDS ORDERED: magnesium 2GM in 50ml NS 50 ML IV PRN (08:35)
[2022-02-04] MEDS ORDERED: magnesium 4gm in 100ml NS 100 ML IV PRN (08:35)
[2022-02-04] MEDS ORDERED: potassium Cl 40MEQ/1/2NS 520ml 520 ML IV PRN (08:35)
[2022-02-04] MEDS ORDERED: potassium Cl 20 mEq SR tablet PO PRN ×2 (08:35)
[2022-02-04] MEDS ORDERED: magnesium Cl slow-release 64mg tablet PO PRN (08:35)
--- NOTE | 2022-02-04 08:38 | NUR ---
Initial: Pt admitted w/ influenza A infection per EMR. Currently on Carb control diet w/ close to 100% intake of meals meeting est needs at this time. Pt w/ RLE cellulitis per [facility] assessment. [facility] 02/03. No nutrition intervention implemented at this time, will continue to monitor. Recs; 1. Continue Carb control diet as tolerated 2. Bowel care per rx 3. Scaled wts Addendum: 02/04/22 at [address] Amended: Links added.
[2022-02-04] MEDS: insulin Lispro (HumaLOG) vial - multi-dose SQ SCH (09:15)
[2022-02-04] MEDS: docusate sod 100mg capsule PO SCH (09:17)
[2022-02-04] MEDS: oseltamivir phos 75mg capsule PO SCH (09:17)
[2022-02-04] MEDS: normal saline 1000ml 1,000 ML IV SCH (09:17)
[2022-02-04 12:00] VITALS: BP 161/95
--- NOTE | 2022-02-04 15:39 | NUR ---
Patient stable and appropriate for discharge home with daughter via taxi. IV removed, all belongings taken from room. All discharge instructions and education given and reviewed with patient, all questions answered. Wound care completed and dc pics placed in chart. Glass removed and patient voided in toilet. no new RX.
== END 2022-02-04 15:38 | disposition home or self-care (01) | DRG 720 ==
LOC: ER 16:21 → ED HOLD 17:31 → EDBEDREQ 19:05 → SUR 3N 02-02 07:01
PROVIDERS: ADMIT Family Medicine; ATTEND Family Medicine
DX: A41.9 Sepsis, unspecified organism (principal); E87.1 Hypo-osmolality and hyponatremia; I50.9 Heart failure, unspecified; E87.6 Hypokalemia; Z20.822 Contact with and (suspected) exposure to COVID-19; J10.1 Influenza due to other identified influenza virus with other respiratory manifestations; L30.4 Erythema intertrigo; E11.9 Type 2 diabetes mellitus without complications; J43.9 Emphysema, unspecified; L03.115 Cellulitis of right lower limb; M79.7 Fibromyalgia; B19.20 Unspecified viral hepatitis C without hepatic coma; Z88.0 Allergy status to penicillin
CPT/HCPCS: 36415; 71045; 80053; 81001; 82948; 83036; 83605; 83735; 83880; 84100; 84145; 85025; 87040; 87081; 87502; 87503; 87635; 93005; 93306; 94640; 94760; 97110; 97161; 97530; 99291; A4615; A5200; A6212; A6223; A6253; A6258; A6449; C9803; G0378; J0456; J0696; J1170; J1650; J1815; J3480; J3490; J7030

== ENCOUNTER 2022-06-08 02:42 | Emergency (ER) | payer MEDICAID ==
[~2022-06-08] VITALS: Ht 157.5 cm; Wt 62.0 kg
[~2022-06-08 02:42] MED LIST changes: -FLUC200T PO; -INSU100V43 SQ; -SULF1TAB45 PO
[2022-06-08 02:46] VITALS: BP 195/95
== END 2022-06-08 06:50 | disposition left against medical advice (07) ==
LOC: ER 02:42
DX: S60.521A Blister (nonthermal) of right hand, initial encounter (principal); S60.522A Blister (nonthermal) of left hand, initial encounter; S80.822A Blister (nonthermal), left lower leg, initial encounter; S80.821A Blister (nonthermal), right lower leg, initial encounter; X58.XXXA Exposure to other specified factors, initial encounter; Y93.89 Activity, other specified; Y92.89 Other specified places as the place of occurrence of the external cause; Y99.8 Other external cause status
CPT/HCPCS: 99281

== ENCOUNTER 2022-08-28 20:40 | Inpatient (IN) | payer MEDICAID ==
[~2022-08-28] VITALS: Ht 167.6 cm; Wt 61.8 kg
[2022-08-28] MEDS: normal saline 1000ml 1,000 ML IV SCH (21:03)
[2022-08-28 22:11] LABS: BASOPHILS # (AUTO) 0.1 X10'3 (0-0.2); BASOPHILS % (AUTO) 0.6 % (0-1); EOSINOPHILS # (AUTO) 0.2 X10'3 (0-0.9); EOSINOPHILS % (AUTO) 2.2 % (0-6); HEMATOCRIT 43.7 % (35.0-45.0); HEMOGLOBIN 14.5 g/dl (12.0-16.0); LYMPHOCYTES # (AUTO) 2.2 X10'3 (1.1-4.8); MEAN CORPUSCULAR HEMOGLOBIN 28.6 PG (27.0-31.0); MEAN CORPUSCULAR HGB CONC 33.2 g/dL (33.0-36.5); MEAN CORPUSCULAR VOLUME 86.2 FL (78-98); MEAN PLATELET VOLUME 8.9 FL (7.4-10.4); MONOCYTES # (AUTO) 0.5 X10'3 (0-0.9); MONOCYTES % (AUTO) 5.6 % (2-12); NEUTROPHILS # (AUTO) 5.4 X10'3 (1.8-7.7); NEUTROPHILS % (AUTO) 64.6 % (42-75); PLATELET COUNT 107 X10'3 (140-440); RED BLOOD COUNT 5.07 X10'6 (4.20-5.60); RED CELL DISTRIBUTION WIDTH 13.6 % (11.5-14.5); WHITE BLOOD COUNT 8.3 X10'3 (4.5-11.0)
[2022-08-28 22:16] LABS: ALANINE AMINOTRANSFERASE 11 U/L (12-78); ALBUMIN 2.6 G/DL (3.4-5.0); ALBUMIN/GLOBULIN RATIO 0.7 (1.1-1.5); ALKALINE PHOSPHATASE 90 IU/L (46-116); ANION GAP 11 (8-16); ASPARTATE AMINO TRANSFERASE 42 U/L (10-37); BILIRUBIN,TOTAL 0.6 MG/DL (0.1-1.0); BLOOD UREA NITROGEN 17 MG/DL (7-18); BUN/CREATININE RATIO 23.9 (10.0-20.0); CHLORIDE 105 MMOL/L (99-107); CREATININE 0.71 MG/DL (0.40-0.90); GLUCOSE 303 MG/DL (70-104); POTASSIUM 3.4 MMOL/L (3.5-5.1); SODIUM 142 MMOL/L (135-145); TOTAL CARBON DIOXIDE 25.8 MMOL/L (24-32); TOTAL PROTEIN 6.2 G/DL (6.4-8.2); eGFR 85 ML/MIN
[2022-08-28 22:19] LABS: APTT 27 SECONDS (22-32)
[2022-08-28] MEDS ORDERED: ondansetron/PF 4mg/2ml inj IV ONE (22:25)
[2022-08-28] MEDS ORDERED: morphine 4 MG/ML inj SYRINge IV ONE (22:25)
[2022-08-28] MEDS ORDERED: ondansetron/PF 4mg/2ml inj IV PRN (22:30)
[2022-08-28] MEDS ORDERED: magnesium hydroxide 30ml (MOM) UD suspension PO PRN (22:30)
[2022-08-28] MEDS ORDERED: mag hydrox/Alum hydrox/simeth 30ml oral suspension PO PRN (22:30)
[2022-08-28] MEDS ORDERED: DEXTROSE 15 GM of carb/4 tabs (each vial/BOTTLE has 4 tablets) PO PRN ×2 (22:30)
[2022-08-28] MEDS ORDERED: potassium Cl 40MEQ/1/2NS 520ml 520 ML IV PRN (22:30)
[2022-08-28] MEDS ORDERED: acetaminophen 325mg tablet PO PRN (22:30)
[2022-08-28] MEDS ORDERED: MESSAGE TO PHARMACY PO ONE (22:30)
[2022-08-28] MEDS ORDERED: potassium Cl 20 mEq SR tablet PO PRN ×2 (22:30)
[2022-08-28] MEDS ORDERED: dextrose 50%-water 50ml dispensing syringe IV PRN ×2 (22:30)
[2022-08-28] MEDS ORDERED: magnesium 4gm in 100ml NS 100 ML IV PRN (22:30)
[2022-08-28] MEDS ORDERED: glucagon, human recombinant 1mg kit SUBCUT PRN (22:30)
--- NOTE | 2022-08-28 22:56 | NUR ---
ED 16--PT WANTS TO KNOW WHEN NPO STARTS CAN SHE EAT [id number] DR LILLI MCNAIR
[2022-08-28 23:11] LABS: CLARITY,URINE CLEAR (Clear); COLOR,URINE YELLOW (Yellow); GLUCOSE, URINE 500 mg/dl (Neg); KETONES,URINE NEGATIVE (Neg); LEUKOCYTE ESTERASE ,URINE NEGATIVE (Neg); NITRITES, URINE NEGATIVE (Neg); OCCULT BLOOD,URINE SMALL (Neg); PROTEIN,URINE >=300 mg/dl (Neg)
[2022-08-28 23:21] LABS: UA COLLECTION TYPE FOLEY CATH
[2022-08-28 23:22] LABS: URINE AMPHETAMINE SCREEN POSITIVE (Neg); URINE BARBITUATE SCREEN NEGATIVE (Neg); URINE BENZODIAZEPINES SCREEN NEGATIVE (Neg); URINE CANNABINOID SCREEN NEGATIVE (Neg); URINE COCAINE SCREEN NEGATIVE (Neg); URINE METHADONE SCREEN NEGATIVE (Neg); URINE OPIATE SCREEN NEGATIVE (Neg); URINE PHENCYCLIDINE SCREEN NEGATIVE (Neg)
[2022-08-28 23:24] LABS: FINE GRANULAR CAST 0-3 /LPF (NEGATIVE); WBC,URINE 0-4 /HPF (0-4)
[2022-08-28 23:25] LABS: RBC,URINE 0-2 /HPF (0-2); SQUAMOUS EPITHELIAL CELL,UR FEW /LPF (FEW); TRANSITIONAL EPI CELLS,URINE FEW /HPF
[2022-08-28 23:26] LABS: BACTERIA,URINE FEW /HPF (Neg)
--- NOTE | 2022-08-28 23:47 | NUR ---
PT PLACED IN TRACTION [facility] B[facility]
[2022-08-29] VITALS (21 sets, daily range): BP systolic 129–167; BP diastolic 73–88
[2022-08-29] MEDS ORDERED: hydrALAZINE 20mg/ml inj. IV PRN (01:20)
[2022-08-29] MEDS ORDERED: NO HOME MEDS (02:10)
[2022-08-29 03:01] LABS: BASOPHILS # (AUTO) 0.1 X10'3 (0-0.2); BASOPHILS % (AUTO) 0.5 % (0-1); EOSINOPHILS # (AUTO) 0.2 X10'3 (0-0.9); EOSINOPHILS % (AUTO) 1.9 % (0-6); HEMATOCRIT 38.8 % (35.0-45.0); LYMPHOCYTES # (AUTO) 2.2 X10'3 (1.1-4.8); LYMPHOCYTES % (AUTO) 22.2 % (21-51); MEAN CORPUSCULAR HEMOGLOBIN 28.9 PG (27.0-31.0); MEAN CORPUSCULAR HGB CONC 33.4 g/dL (33.0-36.5); MEAN CORPUSCULAR VOLUME 86.4 FL (78-98); MEAN PLATELET VOLUME 8.6 FL (7.4-10.4); MONOCYTES # (AUTO) 0.8 X10'3 (0-0.9); MONOCYTES % (AUTO) 8.3 % (2-12); NEUTROPHILS # (AUTO) 6.6 X10'3 (1.8-7.7); NEUTROPHILS % (AUTO) 67.1 % (42-75); PLATELET COUNT 96 X10'3 (140-440); RED BLOOD COUNT 4.49 X10'6 (4.20-5.60); RED CELL DISTRIBUTION WIDTH 13.8 % (11.5-14.5); WHITE BLOOD COUNT 9.8 X10'3 (4.5-11.0)
[2022-08-29 03:21] LABS: ALANINE AMINOTRANSFERASE 25 U/L (12-78); ALBUMIN 2.3 G/DL (3.4-5.0); ALBUMIN/GLOBULIN RATIO 0.7 (1.1-1.5); ALKALINE PHOSPHATASE 82 IU/L (46-116); ANION GAP 7 (8-16); ASPARTATE AMINO TRANSFERASE 37 U/L (10-37); BILIRUBIN,TOTAL 0.5 MG/DL (0.1-1.0); BLOOD UREA NITROGEN 17 MG/DL (7-18); BUN/CREATININE RATIO 25.8 (10.0-20.0); CALCIUM 8.6 MG/DL (8.5-10.1); CHLORIDE 106 MMOL/L (99-107); CREATININE 0.66 MG/DL (0.40-0.90); GLUCOSE 291 MG/DL (70-104); MAGNESIUM 1.7 MG/DL (1.5-2.4); POTASSIUM 3.8 MMOL/L (3.5-5.1); SODIUM 141 MMOL/L (135-145); TOTAL PROTEIN 5.5 G/DL (6.4-8.2); eGFR > 90 ML/MIN
[2022-08-29] MEDS: normal saline 1000ml 1,000 ML IV SCH ×2 (06:10→17:29)
[2022-08-29] MEDS: HYDROmorphone 1 mg/ml syringe IV PRN ×2 (06:10→19:03)
[2022-08-29] MEDS: K and/or MAG REPLACEMENT MC SCH ×2 (08:00→20:00)
[2022-08-29] MEDS: docusate sod 100mg capsule PO SCH ×2 (08:00→20:00)
[2022-08-29] MEDS: nicotine 14mg patch - 24hr TD SCH (08:00)
[2022-08-29] MEDS ORDERED: BUPIVAcaine/PF 2.5 mg/ml (0.25%) 30ml vial ONE (13:39)
[2022-08-29] MEDS ORDERED: sevoflurane 250ml liquid IH ONE (13:48)
[2022-08-29] MEDS ORDERED: glycopyrrolate 0.2mg/ml inj ONE (13:48)
[2022-08-29] MEDS ORDERED: neostigmine methylsulfate 1 MG/ML 10ml vial ONE (13:48)
[2022-08-29] MEDS ORDERED: fentaNYL /PF 50mcg/ml 5ml ampule ONE (13:50)
[2022-08-29] MEDS ORDERED: morphine 2 MG/ML inj. syringe IV PRN (13:50)
[2022-08-29] MEDS ORDERED: proCHLORperazine 10 MG/2 ml inj IV PRN (13:50)
[2022-08-29] MEDS ORDERED: ringers solution, lacted 1,000 ML IV SCH (13:50)
[2022-08-29] MEDS ORDERED: meperidine/PF 25mg/ml syringe IV PRN ×3 (13:50)
[2022-08-29] MEDS ORDERED: ondansetron/PF 4mg/2ml inj IV PRN (13:50)
[2022-08-29] MEDS ORDERED: midazolam 1 mg/ML 2ml injection ONE (13:50)
[2022-08-29] MEDS ORDERED: morphine 4 MG/ML inj SYRINge IV PRN (13:50)
[2022-08-29] MEDS ORDERED: propofol inj 20 ML IV ONE (14:07)
[2022-08-29] MEDS ORDERED: rocuronium 10mg/ml inj IV ONE (14:07)
[2022-08-29] MEDS ORDERED: LIDOcaine 2% (20mg/ml) 5ml vial ONE (14:07)
[2022-08-29] MEDS ORDERED: insulin regular, human U-100 3ml vial - multi-dose ONE (14:33)
[2022-08-29] MEDS ORDERED: dexamethasone sod phosphate 4mg/ml inj. ONE (14:54)
[2022-08-29] MEDS ORDERED: ondansetron/PF 4mg/2ml inj ONE (14:54)
[2022-08-29] MEDS ORDERED: ceFAZolin 1000mg inj ONE (14:54)
[2022-08-29] MEDS ORDERED: ePHEDrine 50MG/ML INJ. ONE (15:15)
[2022-08-29] MEDS ORDERED: phenylephrine 10mg/ml inj. -priapism dosing ONE (15:15)
--- NOTE | 2022-08-29 15:26 | NUR ---
Received from OR via , accompanied by Anesthesiologist DR HOLLAND and report given by Anesthesiolgist. VSS. PATIENT HAS ET TUBE ON 10 LITERS WITH THE MASK. IV 18G IN LEFT WRIST. F/C WITH 35O OUT. LARGE BANDAGE AND ONE ISLAND UNDER ROMA WRAP AND LEG BRACE RIGHT SIDE. Addendum: 08/29/22 at 1549 by Sarah Caldwell RN Amended: Links added.
--- NOTE | 2022-08-29 15:35 | NUR ---
BLOOD SUGAR: 160
--- NOTE | 2022-08-29 16:47 | NUR ---
Patient in room PACU 2. I have received report from Sarah and had the opportunity to ask questions and assume patient care.
--- NOTE | 2022-08-29 17:07 | NUR ---
PATIENT MEETS DISCHARGE CRITERIA. VSS. IV INTACT. F/C EMPTIED WITHIN THE HR. BS TAKEN AT 1335 IT WAS 160 PATIENT HAD CELL PHONE, MONEY, AND A CREDIT CARD HANGING ON THE POLE. CALLED REPORT TO LARRY LANDRY. TOOK THE PATIENT TO THE FLOOR AND LET THE CHARGE NURSE KNOW ABOUT THE ZIP LOCK BAG WITH THE PATIENT'S PHONE, MONEY, AND CARD. LEFT HER UPPER DENTURES IN THE CASE NEXT TO THE BED. TED LOUIS AND CHARGE NURSE AT BEDSIDE WHILE I STARTED V/S. BED LOWERED , LOCKED, AND CALL LIGHT WITHIN REACH.
--- NOTE | 2022-08-29 17:09 | NUR ---
Patient arrived to the floor, VS set up, patient is still very sleepy. Addendum: 08/29/22 at 1754 by Madid Johnson RN Patient is quite malodorous, unkempt and unclean. Very sleepy/groggy after arrival to the floor but easily awakened. Patient did have some ice chips and does not complain of pain at this time.
[2022-08-29] MEDS: cefazolin 2gm/D5W 100mL 100 ML IV SCH (17:29)
--- NOTE | 2022-08-29 18:22 | NUR ---
Problems reprioritized. Patient report given, questions answered & plan of care reviewed with
[2022-08-29] MEDS: enoxaparin 40mg/0.4ml syringe SQ SCH (20:00)
[2022-08-29] MEDS: insulin glargine (Lantus) pen - multi-dose SQ SCH (21:20)
[2022-08-30] MEDS: cefazolin 2gm/D5W 100mL 100 ML IV SCH ×2 (00:31→07:43)
[2022-08-30 02:00] VITALS: BP 145/78
[2022-08-30] MEDS: HYDROmorphone 1 mg/ml syringe IV PRN ×2 (04:34→13:06)
[2022-08-30] MEDS: normal saline 1000ml 1,000 ML IV SCH ×3 (04:34→22:55)
[2022-08-30 06:00] VITALS: BP 139/79
[2022-08-30 06:18] LABS: BASOPHILS # (AUTO) 0.1 X10'3 (0-0.2); BASOPHILS % (AUTO) 0.5 % (0-1); EOSINOPHILS # (AUTO) 0.1 X10'3 (0-0.9); EOSINOPHILS % (AUTO) 0.6 % (0-6); HEMATOCRIT 31.3 % (35.0-45.0); HEMOGLOBIN 10.5 g/dl (12.0-16.0); LYMPHOCYTES # (AUTO) 2.3 X10'3 (1.1-4.8); LYMPHOCYTES % (AUTO) 21.1 % (21-51); MEAN CORPUSCULAR HEMOGLOBIN 29.2 PG (27.0-31.0); MEAN CORPUSCULAR HGB CONC 33.5 g/dL (33.0-36.5); MEAN CORPUSCULAR VOLUME 87.1 FL (78-98); MEAN PLATELET VOLUME 9.7 FL (7.4-10.4); MONOCYTES # (AUTO) 0.9 X10'3 (0-0.9); MONOCYTES % (AUTO) 8.1 % (2-12); NEUTROPHILS # (AUTO) 7.7 X10'3 (1.8-7.7); NEUTROPHILS % (AUTO) 69.7 % (42-75); PLATELET COUNT 85 X10'3 (140-440); RED CELL DISTRIBUTION WIDTH 13.9 % (11.5-14.5); WHITE BLOOD COUNT 11.1 X10'3 (4.5-11.0)
[2022-08-30 06:39] LABS: ALANINE AMINOTRANSFERASE 18 U/L (12-78); ALBUMIN 2.1 G/DL (3.4-5.0); ALBUMIN/GLOBULIN RATIO 0.7 (1.1-1.5); ALKALINE PHOSPHATASE 69 IU/L (46-116); ANION GAP 8 (8-16); ASPARTATE AMINO TRANSFERASE 34 U/L (10-37); BILIRUBIN,TOTAL 0.5 MG/DL (0.1-1.0); BLOOD UREA NITROGEN 15 MG/DL (7-18); CALCIUM 7.9 MG/DL (8.5-10.1); CHLORIDE 104 MMOL/L (99-107); GLUCOSE 211 MG/DL (70-104); MAGNESIUM 1.5 MG/DL (1.5-2.4); POTASSIUM 3.8 MMOL/L (3.5-5.1); SODIUM 138 MMOL/L (135-145); TOTAL CARBON DIOXIDE 25.9 MMOL/L (24-32); TOTAL PROTEIN 5.2 G/DL (6.4-8.2); eGFR > 90 ML/MIN
--- NOTE | 2022-08-30 06:41 | NUR ---
I have received report from GRIS Garcia and had the opportunity to ask questions and assume patient care. No acute distress at this time.
[2022-08-30] MEDS: docusate sod 100mg capsule PO SCH ×2 (07:44→21:56)
[2022-08-30] MEDS: nicotine 14mg patch - 24hr TD SCH (07:44)
[2022-08-30] MEDS: K and/or MAG REPLACEMENT MC SCH ×2 (08:00→20:00)
[2022-08-30] MEDS: insulin Lispro (HumaLOG) vial - multi-dose SQ SCH ×3 (09:45→20:22)
[2022-08-30 10:00] VITALS: BP 156/79
[2022-08-30] MEDS ORDERED: fluconazole 100mg tablet PO ONE (10:15)
--- NOTE | 2022-08-30 15:20 | NUR ---
PRESSURE ULCER EDUCATION: DEFINITION: A pressure ulcer is an area of skin that breaks down when you stay in one position too long. The constant pressure against the skin reduces the blood flow to that area and the affected tissue dies. CAUSES: "Being bedridden or in a wheelchair "Fragile skin "Having a chronic condition, such as diabetes or vascular disease "Inability to move certain parts of your body without assistance "Older age "Incontinence of urine or stool SYMPTOMS: "A reddened area that DOES NOT turn white when pressed on - this can be the beginning of a pressure ulcer "A blister, deep sore or a crater - these can be advanced pressure ulcers FIRST AID: "Relieve the pressure on this area "Keep the area clean and dry "Call your primary doctor if you see any of the above symptoms "DO NOT massage the area "DO NOT use a donut shaped or ring shaped pillow- these actually interfere with the blood flow and cause complications PREVENTION: "Check for pressure ulcers everyday "Change position at least every two hours to relieve pressure "Use items that help relieve pressure- pillows, sheepskin, foam padding, and powders. "Keep skin clean and dry "Eat healthy well balanced meals "Exercise daily IF YOU SEE ANY OF THESE SYMPTOMS WHILE IN THE HOSPITAL - TELL YOUR NURSE IMMEDIATELY. IF YOU SEE ANY OF THESE SYMPTOMS WHILE AT HOME OR HAVE ANY QUESTIONS OR CONCERNS ABOUT PRESSURE ULCERS - CALL YOUR PRIMARY DOCTOR IMMEDIATELY. Addendum: 08/30/22 at 1520 by Monica Parham LVN Amended: Links added.
[2022-08-30 18:00] VITALS: BP 131/64
[2022-08-30] MEDS: enoxaparin 40mg/0.4ml syringe SQ SCH (20:00)
[2022-08-30] MEDS: HYDROmorphone inj. 0.5 MG/0.5 ML DISP.SYRIN IV PRN (21:55)
[2022-08-30 22:00] VITALS: BP 124/67
[2022-08-30] MEDS: insulin glargine (Lantus) pen - multi-dose SQ SCH (22:25)
[2022-08-31] MEDS: normal saline 1000ml 1,000 ML IV SCH ×2 (01:44→20:01)
[2022-08-31] MEDS: HYDROmorphone inj. 0.5 MG/0.5 ML DISP.SYRIN IV PRN ×2 (04:15→21:00)
[2022-08-31 06:00] VITALS: BP 166/93
[2022-08-31 06:49] LABS: BASOPHILS # (AUTO) 0.1 X10'3 (0-0.2); BASOPHILS % (AUTO) 0.6 % (0-1); EOSINOPHILS # (AUTO) 0.1 X10'3 (0-0.9); HEMATOCRIT 30.6 % (35.0-45.0); HEMOGLOBIN 10.2 g/dl (12.0-16.0); LYMPHOCYTES # (AUTO) 1.8 X10'3 (1.1-4.8); LYMPHOCYTES % (AUTO) 18.3 % (21-51); MEAN CORPUSCULAR HEMOGLOBIN 28.9 PG (27.0-31.0); MEAN CORPUSCULAR HGB CONC 33.4 g/dL (33.0-36.5); MEAN CORPUSCULAR VOLUME 86.8 FL (78-98); MEAN PLATELET VOLUME 9.4 FL (7.4-10.4); MONOCYTES # (AUTO) 0.8 X10'3 (0-0.9); MONOCYTES % (AUTO) 7.6 % (2-12); NEUTROPHILS # (AUTO) 7.2 X10'3 (1.8-7.7); NEUTROPHILS % (AUTO) 72.5 % (42-75); PLATELET COUNT 89 X10'3 (140-440); RED BLOOD COUNT 3.53 X10'6 (4.20-5.60)
--- NOTE | 2022-08-31 06:51 | NUR ---
Problems reprioritized. Patient report given, questions answered & plan of care reviewed with NYA ESCALANTE.
--- NOTE | 2022-08-31 06:52 | NUR ---
Patient in room [facility]. I have received report from GRIS Apodaca and had the opportunity to ask questions and assume patient care.
[2022-08-31 06:59] LABS: ALANINE AMINOTRANSFERASE 16 U/L (12-78); ALBUMIN 1.9 G/DL (3.4-5.0); ALBUMIN/GLOBULIN RATIO 0.6 (1.1-1.5); ALKALINE PHOSPHATASE 63 IU/L (46-116); ANION GAP 10 (8-16); ASPARTATE AMINO TRANSFERASE 35 U/L (10-37); BILIRUBIN,TOTAL 0.7 MG/DL (0.1-1.0); BLOOD UREA NITROGEN 14 MG/DL (7-18); BUN/CREATININE RATIO 29.8 (10.0-20.0); CALCIUM 7.7 MG/DL (8.5-10.1); CHLORIDE 103 MMOL/L (99-107); CREATININE 0.47 MG/DL (0.40-0.90); GLUCOSE 98 MG/DL (70-104); MAGNESIUM 1.4 MG/DL (1.5-2.4); POTASSIUM 3.5 MMOL/L (3.5-5.1); SODIUM 136 MMOL/L (135-145); TOTAL CARBON DIOXIDE 22.8 MMOL/L (24-32); TOTAL PROTEIN 5.1 G/DL (6.4-8.2); eGFR > 90 ML/MIN
[2022-08-31] MEDS: docusate sod 100mg capsule PO SCH ×2 (07:34→20:04)
[2022-08-31] MEDS: fluconazole 100mg tablet PO SCH (07:34)
[2022-08-31] MEDS: nicotine 14mg patch - 24hr TD SCH (07:35)
[2022-08-31] MEDS: K and/or MAG REPLACEMENT MC SCH ×2 (08:00→20:00)
[2022-08-31] MEDS: insulin Lispro (HumaLOG) vial - multi-dose SQ SCH ×3 (09:18→19:54)
[2022-08-31 10:00] VITALS: BP 143/72
[2022-08-31] MEDS: HYDROmorphone 1 mg/ml syringe IV PRN ×2 (10:42→16:50)
[2022-08-31] MEDS ORDERED: INSU100C10 SQ (10:53)
[2022-08-31] MEDS ORDERED: LANTUS SQ (10:53)
[2022-08-31 11:25] LABS: HEMOGLOBIN A1C 10.4 % (4.5-6.2)
--- NOTE | 2022-08-31 15:31 | NUR ---
DM consult: Per EMR pt with T2DM, current A1c 10.4% down from 11.5% from 01/31/22. Pt seen at bedside for written and verbal DM education. Pt states she has not seen a physician for DM management for a few years and reports not taking any DM medications d/t not having any available. Pt states she previously was on insulin but has not had any for a few years. Pt reports not checking her blood sugars as she does not have a glucometer though did state she used to check her blood sugars about four times a day when she was taking insulin. Pt denies following any specific diet to help manage her diabetes d/t limited funding and resources. Pt states she usually eats ramen noodles and potatoes and gets eggs when she can d/t only receiving $25 in food stamps with her SSI money going to bills and her daughters, however then reports just recently spending $[address] assisted pt in coming up with shelf stable food options to help manage blood sugars while still getting adequate nutrition. Pt provided with [employer] coupons and encouraged to utilize ONS as able as they will provide additional nutrition and are shelf stable. Pt seemed very excited and receptive to the idea of utilizing ONS. Noted SW is already following pt. All of patient's questions were answered at this time. Pt endorses a good appetite and states she is still hungry following meals. Pt agrees to double protein TID, d/w dietary. Pt denies food allergies though reports disliking green beans, d/w dietary. Pt denies difficulty chewing or swallowing. LBM 7/16 per EMR however pt states LBM was before that. Pt receiving routine bowel care and has PRN bowel care available. Pt agrees to power pudding with next meal to assist with a BM, d/w dietary. Pt provided with RD contact information and encouraged to reach out if needed. Will continue to follow. Addendum: 08/31/22 at [address] Amended: Links added.
[2022-08-31 18:00] VITALS: BP 130/62
--- NOTE | 2022-08-31 18:00 | NUR ---
I have reviewed and agree with interventions, assessments, and documentation by Lex Vargas LVN.
--- NOTE | 2022-08-31 18:54 | NUR ---
Problems reprioritized. Patient report given, questions answered & plan of care reviewed with GRIS Apodaca.
[2022-08-31] MEDS: enoxaparin 40mg/0.4ml syringe SQ SCH (20:00)
[2022-08-31 22:00] VITALS: BP 134/65
[2022-08-31] MEDS: insulin glargine (Lantus) pen - multi-dose SQ SCH (22:12)
[2022-09-01] MEDS: HYDROmorphone inj. 0.5 MG/0.5 ML DISP.SYRIN IV PRN ×3 (02:30→15:17)
[2022-09-01] MEDS: normal saline 1000ml 1,000 ML IV SCH ×2 (05:25→13:47)
[2022-09-01 05:55] LABS: BASOPHILS # (AUTO) 0.1 X10'3 (0-0.2); BASOPHILS % (AUTO) 0.6 % (0-1); EOSINOPHILS # (AUTO) 0.2 X10'3 (0-0.9); EOSINOPHILS % (AUTO) 2.8 % (0-6); HEMATOCRIT 26.9 % (35.0-45.0); LYMPHOCYTES # (AUTO) 2.3 X10'3 (1.1-4.8); LYMPHOCYTES % (AUTO) 28.2 % (21-51); MEAN CORPUSCULAR HEMOGLOBIN 29.2 PG (27.0-31.0); MEAN CORPUSCULAR HGB CONC 33.6 g/dL (33.0-36.5); MEAN CORPUSCULAR VOLUME 86.8 FL (78-98); MEAN PLATELET VOLUME 9.5 FL (7.4-10.4); MONOCYTES # (AUTO) 0.7 X10'3 (0-0.9); NEUTROPHILS % (AUTO) 60.4 % (42-75); PLATELET COUNT 85 X10'3 (140-440); RED CELL DISTRIBUTION WIDTH 13.9 % (11.5-14.5); WHITE BLOOD COUNT 8.2 X10'3 (4.5-11.0)
[2022-09-01 06:00] VITALS: BP 142/64
[2022-09-01 06:04] LABS: ALANINE AMINOTRANSFERASE 13 U/L (12-78); ALBUMIN 1.7 G/DL (3.4-5.0); ALBUMIN/GLOBULIN RATIO 0.5 (1.1-1.5); ALKALINE PHOSPHATASE 69 IU/L (46-116); ANION GAP 10 (8-16); ASPARTATE AMINO TRANSFERASE 29 U/L (10-37); BILIRUBIN,TOTAL 0.4 MG/DL (0.1-1.0); BLOOD UREA NITROGEN 15 MG/DL (7-18); BUN/CREATININE RATIO 34.1 (10.0-20.0); CALCIUM 7.8 MG/DL (8.5-10.1); CHLORIDE 102 MMOL/L (99-107); CREATININE 0.44 MG/DL (0.40-0.90); GLUCOSE 182 MG/DL (70-104); MAGNESIUM 1.5 MG/DL (1.5-2.4); POTASSIUM 3.4 MMOL/L (3.5-5.1); SODIUM 135 MMOL/L (135-145); TOTAL CARBON DIOXIDE 23.2 MMOL/L (24-32); TOTAL PROTEIN 4.8 G/DL (6.4-8.2); eGFR > 90 ML/MIN
--- NOTE | 2022-09-01 06:25 | NUR ---
Problems reprioritized. Patient report given, questions answered & plan of care reviewed with IDALMIS ESCALANTE.
--- NOTE | 2022-09-01 06:35 | NUR ---
I have received report from AVA Eason and had the opportunity to ask questions and assume patient care. Patient is in no acute distress at this time. Addendum: 09/01/22 at 0638 by Mary Chambers LVN, LVN LOREN*
[2022-09-01] MEDS: nicotine 14mg patch - 24hr TD SCH (08:17)
[2022-09-01] MEDS: docusate sod 100mg capsule PO SCH ×2 (08:18→20:00)
[2022-09-01] MEDS: fluconazole 100mg tablet PO SCH (08:18)
[2022-09-01] MEDS: K and/or MAG REPLACEMENT MC SCH ×2 (08:34→20:00)
--- NOTE | 2022-09-01 09:02 | NUR ---
promotional table spacer promotional table spacer Page Sent promotional table spacer PAGER ID: [phone] MESSAGE: [id number] Goodmorning: Re: pt in Room 4023 A Radha Mcgee, her K this a.m is 3.4. There are no orders for replacement protocol in there. May I please add that? Thank you. (170 character message out of a maximum of 240) CLOSE [X] SEND ANOTHER PAGE
[2022-09-01] MEDS: insulin Lispro (HumaLOG) vial - multi-dose SQ SCH ×3 (09:18→19:59)
--- NOTE | 2022-09-01 09:41 | NUR ---
PAGER ID: [phone] MESSAGE: 2nd page: [id number] Goodmorning: Re: pt in Room 4023 Sam Mcgee, her K this a.m is 3.4. There are no orders for replacement protocol in there. May I please add that? Thank you.
[2022-09-01 10:00] VITALS: BP 129/78
[2022-09-01] MEDS ORDERED: potassium Cl 40MEQ/1/2NS 520ml 520 ML IV PRN (10:10)
[2022-09-01] MEDS ORDERED: magnesium Cl slow-release 64mg tablet PO PRN (10:10)
[2022-09-01] MEDS ORDERED: magnesium 4gm in 100ml NS 100 ML IV PRN (10:10)
[2022-09-01] MEDS ORDERED: potassium Cl 20 mEq SR tablet PO PRN (10:10)
[2022-09-01] MEDS ORDERED: magnesium 2GM in 50ml NS 50 ML IV PRN (10:10)
[2022-09-01] MEDS: potassium Cl 20 mEq SR tablet PO PRN ×3 (11:03→20:17)
[2022-09-01] MEDS ORDERED: oxyCODONE IR 5mg (immed. release) tablet PO PRN (16:05)
[2022-09-01] MEDS ORDERED: oxyCODONE IR 5mg (immed. release) tablet PO ONE (16:05)
--- NOTE | 2022-09-01 17:00 | NUR ---
I have reviewed and agree with interventions, assessments, and documentation by aMry Kaye LVN.
[2022-09-01 18:00] VITALS: BP 154/86
--- NOTE | 2022-09-01 18:17 | NUR ---
Problems reprioritized. Patient report given to AVA Lovelace, questions answered & plan of care reviewed with . No acute distress at this time. pharmacy data analyst will have to replace last dose of 20 meQ of K due to timing regimen.
--- NOTE | 2022-09-01 18:40 | NUR ---
Patient in room [facility]23. I have received report from AVA Hernandez and had the opportunity to ask questions and assume patient care.
[2022-09-01] MEDS ORDERED: enoxaparin 30mg/0.3ml syringe SQ SCH (20:00)
--- NOTE | 2022-09-01 20:30 | NUR ---
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 noted pt has right knee locked brace in place. island dressing to upper lateral right hip and just above right knee. abraision to right knee just past the island dressing had dried blood on it. bandaid intact right side of left knee. pt has hx of foot drop on right side "and that's how I fell". PT to work with patient. wetness under pannus - cleaned and placed pillowcase under pannus. breasts CDI. brock care completed, placed brock on left side of patient. lungs and heart WNL. pulses intact - used doppler for right side and marked. coccyx intact w/o redness. A/O x4, iv intact
[2022-09-01] MEDS: insulin glargine (Lantus) pen - multi-dose SQ SCH (21:38)
[2022-09-01 22:00] VITALS: BP 130/95
[2022-09-02] MEDS: normal saline 1000ml 1,000 ML IV SCH (00:55)
[2022-09-02 06:00] VITALS: BP 139/69
[2022-09-02] MEDS: oxyCODONE IR 5mg (immed. release) tablet PO PRN ×2 (06:16→11:30)
[2022-09-02 06:35] LABS: BASOPHILS # (AUTO) 0.1 X10'3 (0-0.2); BASOPHILS % (AUTO) 0.7 % (0-1); EOSINOPHILS # (AUTO) 0.2 X10'3 (0-0.9); EOSINOPHILS % (AUTO) 3.2 % (0-6); HEMATOCRIT 27.6 % (35.0-45.0); HEMOGLOBIN 9.2 g/dl (12.0-16.0); LYMPHOCYTES # (AUTO) 2.1 X10'3 (1.1-4.8); LYMPHOCYTES % (AUTO) 27.6 % (21-51); MEAN CORPUSCULAR HGB CONC 33.4 g/dL (33.0-36.5); MEAN CORPUSCULAR VOLUME 86.7 FL (78-98); MEAN PLATELET VOLUME 8.9 FL (7.4-10.4); MONOCYTES # (AUTO) 0.7 X10'3 (0-0.9); MONOCYTES % (AUTO) 9.5 % (2-12); NEUTROPHILS # (AUTO) 4.5 X10'3 (1.8-7.7); PLATELET COUNT 106 X10'3 (140-440); RED BLOOD COUNT 3.18 X10'6 (4.20-5.60); RED CELL DISTRIBUTION WIDTH 13.9 % (11.5-14.5); WHITE BLOOD COUNT 7.6 X10'3 (4.5-11.0)
--- NOTE | 2022-09-02 06:43 | NUR ---
Problems reprioritized. Patient report given, questions answered & plan of care reviewed with GRIS French.
[2022-09-02] MEDS: K and/or MAG REPLACEMENT MC SCH (06:48)
[2022-09-02 06:53] LABS: ALANINE AMINOTRANSFERASE 8 U/L (12-78); ALBUMIN 1.6 G/DL (3.4-5.0); ALBUMIN/GLOBULIN RATIO 0.5 (1.1-1.5); ALKALINE PHOSPHATASE 97 IU/L (46-116); ANION GAP 4 (8-16); ASPARTATE AMINO TRANSFERASE 31 U/L (10-37); BILIRUBIN,TOTAL 0.4 MG/DL (0.1-1.0); BLOOD UREA NITROGEN 16 MG/DL (7-18); BUN/CREATININE RATIO 45.7 (10.0-20.0); CALCIUM 7.7 MG/DL (8.5-10.1); CHLORIDE 103 MMOL/L (99-107); CREATININE 0.35 MG/DL (0.40-0.90); GLUCOSE 177 MG/DL (70-104); MAGNESIUM 1.6 MG/DL (1.5-2.4); POTASSIUM 3.9 MMOL/L (3.5-5.1); SODIUM 132 MMOL/L (135-145); TOTAL CARBON DIOXIDE 25.1 MMOL/L (24-32); eGFR > 90 ML/MIN
--- NOTE | 2022-09-02 06:53 | NUR ---
Patient in room [facility]. I have received report from [place] and had the opportunity to ask questions and assume patient care.
[2022-09-02] MEDS: docusate sod 100mg capsule PO SCH (07:43)
[2022-09-02] MEDS: fluconazole 100mg tablet PO SCH (07:43)
[2022-09-02] MEDS: nicotine 14mg patch - 24hr TD SCH (07:44)
[2022-09-02] MEDS: insulin Lispro (HumaLOG) vial - multi-dose SQ SCH (08:52)
[2022-09-02 10:00] VITALS: BP 136/72
--- NOTE | 2022-09-02 11:53 | NUR ---
Called report to Mar. Piv d/c'd, tip intact. Glass catheter remains in place. Assisted pt to anniaadam with SEAmill and coal transport operator.
== END 2022-09-02 11:40 | DRG 308 ==
LOC: ER 20:41 → ED HOLD 22:34 → PACU 08-29 14:04 → ORTHO 4S 08-29 17:14
PROVIDERS: ADMIT Family Medicine; ATTEND Family Medicine
PROC: 0QSB04Z Reposition Right Lower Femur with Internal Fixation Device, Open Approach (ICD-10-PCS; principal; 2022-08-29 13:48)
DX: S72.451A Displaced supracondylar fracture without intracondylar extension of lower end of right femur, initial encounter for closed fracture (principal); E43 Unspecified severe protein-calorie malnutrition; D69.6 Thrombocytopenia, unspecified; M97.11XA Periprosthetic fracture around internal prosthetic right knee joint, initial encounter; B35.6 Tinea cruris; D62 Acute posthemorrhagic anemia; I50.9 Heart failure, unspecified; B19.20 Unspecified viral hepatitis C without hepatic coma; E11.9 Type 2 diabetes mellitus without complications; E87.6 Hypokalemia; Z20.822 Contact with and (suspected) exposure to COVID-19; F17.210 Nicotine dependence, cigarettes, uncomplicated; R23.4 Changes in skin texture; W01.0XXA Fall on same level from slipping, tripping and stumbling without subsequent striking against object, initial encounter; R03.0 Elevated blood-pressure reading, without diagnosis of hypertension; Y93.01 Activity, walking, marching and hiking; J43.9 Emphysema, unspecified; J45.909 Unspecified asthma, uncomplicated; M79.7 Fibromyalgia; Z79.82 Long term (current) use of aspirin; Z80.8 Family history of malignant neoplasm of other organs or systems; Z86.73 Personal history of transient ischemic attack (TIA), and cerebral infarction without residual deficits; Z88.0 Allergy status to penicillin; Z90.710 Acquired absence of both cervix and uterus; Y92.89 Other specified places as the place of occurrence of the external cause; Y99.8 Other external cause status; Z79.899 Other long term (current) drug therapy; Z71.6 Tobacco abuse counseling; Z90.49 Acquired absence of other specified parts of digestive tract; Z68.22 Body mass index [BMI] 22.0-22.9, adult
CPT/HCPCS: 36415; 71045; 73552; 73560; 73590; 76000; 76642; 80053; 80305; 81001; 82948; 83036; 83735; 85025; 85610; 85730; 87081; 87811; 97110; 97116; 97161; 97530; 99285; A4314; A4615; A6209; A6213; A6449; G0378; J0690; J1100; J1170; J1815; J2250; J2270; J2370; J2405; J2704; J2710; J3010; J3490; J7030

== ENCOUNTER 2023-04-09 17:46 | Inpatient (IN) | payer MEDICAID ==
[~2023-04-09] VITALS: Ht 157.5 cm; Wt 63.6 kg
[~2023-04-09 17:46] MED LIST changes: -ALBU2.5V12 NEB; +INSU100C10 SQ
[2023-04-09 19:05] LABS: BASOPHILS # (AUTO) 0.1 X10'3 (0-0.2); BASOPHILS % (AUTO) 1.2 % (0-1); EOSINOPHILS # (AUTO) 0.2 X10'3 (0-0.9); EOSINOPHILS % (AUTO) 3.1 % (0-6); HEMATOCRIT 41.8 % (35.0-45.0); LYMPHOCYTES # (AUTO) 1.5 X10'3 (1.1-4.8); LYMPHOCYTES % (AUTO) 23.2 % (21-51); MEAN CORPUSCULAR HEMOGLOBIN 27.7 PG (27.0-31.0); MEAN CORPUSCULAR HGB CONC 33.4 g/dL (33.0-36.5); MEAN CORPUSCULAR VOLUME 82.8 FL (78-98); MEAN PLATELET VOLUME 8.7 FL (7.4-10.4); MONOCYTES # (AUTO) 0.5 X10'3 (0-0.9); MONOCYTES % (AUTO) 7.6 % (2-12); NEUTROPHILS # (AUTO) 4.1 X10'3 (1.8-7.7); NEUTROPHILS % (AUTO) 64.9 % (42-75); PLATELET COUNT 147 X10'3 (140-440); RED BLOOD COUNT 5.05 X10'6 (4.20-5.60); RED CELL DISTRIBUTION WIDTH 13.9 % (11.5-14.5); WHITE BLOOD COUNT 6.4 X10'3 (4.5-11.0)
[2023-04-09 19:34] LABS: ALBUMIN 2.1 G/DL (3.4-5.0); ANION GAP 8 (8-16); BLOOD UREA NITROGEN 11 MG/DL (7-18); BUN/CREATININE RATIO 17.2 (10.0-20.0); CALCIUM 8.3 MG/DL (8.5-10.1); CHLORIDE 104 MMOL/L (99-107); CREATININE 0.64 MG/DL (0.40-0.90); GLUCOSE 341 MG/DL (70-104); POTASSIUM 3.8 MMOL/L (3.5-5.1); PRO BRAIN NATRIURETIC PEPTIDE 1840 PG/ML (0-125); SODIUM 139 MMOL/L (135-145); TOTAL CARBON DIOXIDE 27.2 MMOL/L (24-32); eCRCL 76 ML/MIN; eGFR > 90 ML/MIN
[2023-04-09 20:58] LABS: BILIRUBIN,URINE NEGATIVE (Neg); CLARITY,URINE CLEAR (Clear); COLOR,URINE YELLOW (Yellow); GLUCOSE, URINE >=1000 mg/dl (Neg); KETONES,URINE NEGATIVE (Neg); LEUKOCYTE ESTERASE ,URINE NEGATIVE (Neg); NITRITES, URINE NEGATIVE (Neg); OCCULT BLOOD,URINE SMALL (Neg); PROTEIN,URINE 100 mg/dl (Neg)
[2023-04-09 20:59] LABS: UA COLLECTION TYPE NON-SPECIFIED
[2023-04-09 21:10] LABS: HYALINE CASTS 0-3 /LPF (NEGATIVE)
[2023-04-09 21:11] LABS: BACTERIA,URINE 1+ /HPF (Neg); RBC,URINE 0-2 /HPF (0-2)
[2023-04-09 21:12] LABS: MUCUS STRANDS NONE SEEN /LPF (Neg); SQUAMOUS EPITHELIAL CELL,UR FEW /LPF (FEW)
[2023-04-09 21:13] LABS: YEAST MODERATE /HPF (NEGATIVE)
[2023-04-09] MEDS ORDERED: vancomycin/NS 1 GM ADD-VANTAGE 250 ML IV ONE (21:30)
[2023-04-09 21:52] LABS: C-REACTIVE PROTEIN 0.57 MG/DL (0.0-0.5)
[2023-04-09] MEDS: VANCOMYCIN 1,500MG in normal saline IV soln 300 ML IV ONE (21:58)
[2023-04-09] MEDS ORDERED: magnesium hydroxide 30ml (MOM) UD suspension PO PRN (22:55)
[2023-04-09] MEDS ORDERED: mag hydrox/Alum hydrox/simeth 30ml oral suspension PO PRN (22:55)
[2023-04-09] MEDS ORDERED: magnesium 4gm in 100ml NS 100 ML IV PRN (22:55)
[2023-04-09] MEDS ORDERED: magnesium 2GM in 50ml NS 50 ML IV PRN (22:55)
[2023-04-09] MEDS ORDERED: ondansetron/PF 4mg/2ml inj IV PRN (22:55)
[2023-04-09] MEDS ORDERED: magnesium Cl slow-release 64mg tablet PO PRN (22:55)
[2023-04-09] MEDS ORDERED: potassium Cl 40MEQ/1/2NS 520ml 520 ML IV PRN (22:55)
[2023-04-09] MEDS ORDERED: potassium Cl 20 mEq SR tablet PO PRN (22:55)
[2023-04-09] MEDS ORDERED: acetaminophen 325mg tablet PO PRN (22:55)
[2023-04-09] MEDS ORDERED: DEXTROSE 15 GM of carb/4 tabs (each vial/BOTTLE has 4 tablets) PO PRN ×2 (23:00)
[2023-04-09] MEDS ORDERED: dextrose 50%-water 50ml dispensing syringe IV PRN ×2 (23:00)
[2023-04-09] MEDS ORDERED: glucagon, human recombinant 1mg kit SUBCUT PRN (23:00)
[2023-04-09] MEDS: CefTRIAXone/D5W-Rocephin 1gm 50 ML IV ONE (23:05)
[2023-04-09] MEDS: MESSAGE TO PHARMACY PO ONE (23:46)
[2023-04-10 03:39] LABS: BASOPHILS # (AUTO) 0.1 X10'3 (0-0.2); EOSINOPHILS # (AUTO) 0.2 X10'3 (0-0.9); EOSINOPHILS % (AUTO) 3.1 % (0-6); HEMATOCRIT 37.9 % (35.0-45.0); HEMOGLOBIN 12.6 g/dl (12.0-16.0); LYMPHOCYTES # (AUTO) 1.2 X10'3 (1.1-4.8); LYMPHOCYTES % (AUTO) 18.7 % (21-51); MEAN CORPUSCULAR HEMOGLOBIN 27.6 PG (27.0-31.0); MEAN CORPUSCULAR HGB CONC 33.2 g/dL (33.0-36.5); MEAN CORPUSCULAR VOLUME 83.1 FL (78-98); MEAN PLATELET VOLUME 8.9 FL (7.4-10.4); MONOCYTES # (AUTO) 0.5 X10'3 (0-0.9); MONOCYTES % (AUTO) 8.3 % (2-12); NEUTROPHILS # (AUTO) 4.6 X10'3 (1.8-7.7); NEUTROPHILS % (AUTO) 68.9 % (42-75); PLATELET COUNT 126 X10'3 (140-440); RED BLOOD COUNT 4.56 X10'6 (4.20-5.60); WHITE BLOOD COUNT 6.7 X10'3 (4.5-11.0)
[2023-04-10 04:00] LABS: ALANINE AMINOTRANSFERASE 12 U/L (12-78); ALBUMIN 1.9 G/DL (3.4-5.0); ALBUMIN/GLOBULIN RATIO 0.5 (1.1-1.5); ANION GAP 11 (8-16); ASPARTATE AMINO TRANSFERASE 32 U/L (10-37); BILIRUBIN,TOTAL 0.4 MG/DL (0.1-1.0); BLOOD UREA NITROGEN 9 MG/DL (7-18); CALCIUM 7.7 MG/DL (8.5-10.1); CHLORIDE 104 MMOL/L (99-107); GLUCOSE 312 MG/DL (70-104); MAGNESIUM 1.7 MG/DL (1.5-2.4); POTASSIUM 3.6 MMOL/L (3.5-5.1); SODIUM 141 MMOL/L (135-145); TOTAL CARBON DIOXIDE 25.6 MMOL/L (24-32); TOTAL PROTEIN 5.7 G/DL (6.4-8.2); eCRCL 81 ML/MIN; eGFR > 90 ML/MIN
[2023-04-10 04:01] LABS: ALKALINE PHOSPHATASE 118 IU/L (46-116)
[2023-04-10] MEDS: K and/or MAG REPLACEMENT MC SCH (08:00)
[2023-04-10] MEDS: heparin, porcine 5000 units/ml vial SQ SCH (09:25)
[2023-04-10] MEDS: CefTRIAXone/D5W-Rocephin 1gm 50 ML IV SCH (09:25)
[2023-04-10] MEDS: docusate sod 100mg capsule PO SCH (09:25)
[2023-04-10] MEDS: insulin Lispro (HumaLOG) vial - multi-dose SQ SCH (09:30)
[2023-04-10] MEDS ORDERED: vancomycin/NS 1 GM ADD-VANTAGE 250 ML IV SCH (10:00)
[2023-04-10] MEDS: VANCOmycin 1250MG/NS 250ml Bag 250 ML IV SCH (10:08)
[2023-04-10] MEDS: HYDROcodone/acetaminophen 5mg/325mg tablet PO PRN (11:48)
[2023-04-10] MEDS: metroNIDAZOLE-Flagyl 500mg/NS 100 ML IV SCH (12:45)
[2023-04-10] MEDS ORDERED: iohexol 350 MG/ML 50ML vial IV ONE (14:08)
[2023-04-10] MEDS ORDERED: iohexol 350MG/ML 100ml bottle IV ONE (14:08)
[2023-04-10] MEDS ORDERED: GADOTERATE MEGLUMINE 7.5 MMOL/15 ML VIAL IV ONE (16:14)
[2023-04-10 21:00] VITALS: BP 163/100; PULSE 96; RESP 24; TEMP 97.8; O2SAT 96
[2023-04-10] MEDS: insulin glargine (Lantus) pen - multi-dose SQ SCH (22:06)
[2023-04-11 06:00] VITALS: BP 140/73; PULSE 95; RESP 16; TEMP 97.9; O2SAT 94
[2023-04-11 06:42] LABS: BASOPHILS # (AUTO) 0.1 X10'3 (0-0.2); EOSINOPHILS # (AUTO) 0.3 X10'3 (0-0.9); EOSINOPHILS % (AUTO) 4.4 % (0-6); HEMATOCRIT 38.4 % (35.0-45.0); HEMOGLOBIN 12.7 g/dl (12.0-16.0); LYMPHOCYTES # (AUTO) 1.3 X10'3 (1.1-4.8); LYMPHOCYTES % (AUTO) 22.9 % (21-51); MEAN CORPUSCULAR HEMOGLOBIN 27.5 PG (27.0-31.0); MEAN CORPUSCULAR VOLUME 83.4 FL (78-98); MEAN PLATELET VOLUME 8.7 FL (7.4-10.4); MONOCYTES # (AUTO) 0.5 X10'3 (0-0.9); MONOCYTES % (AUTO) 8.1 % (2-12); NEUTROPHILS # (AUTO) 3.7 X10'3 (1.8-7.7); NEUTROPHILS % (AUTO) 63.6 % (42-75); PLATELET COUNT 123 X10'3 (140-440); RED CELL DISTRIBUTION WIDTH 14.4 % (11.5-14.5); WHITE BLOOD COUNT 5.8 X10'3 (4.5-11.0)
[2023-04-11 06:47] LABS: ALANINE AMINOTRANSFERASE 13 U/L (12-78); ALBUMIN 1.9 G/DL (3.4-5.0); ALBUMIN/GLOBULIN RATIO 0.5 (1.1-1.5); ALKALINE PHOSPHATASE 99 IU/L (46-116); ANION GAP 7 (8-16); ASPARTATE AMINO TRANSFERASE 33 U/L (10-37); BILIRUBIN,TOTAL 0.3 MG/DL (0.1-1.0); BLOOD UREA NITROGEN 12 MG/DL (7-18); CALCIUM 8.2 MG/DL (8.5-10.1); CHLORIDE 106 MMOL/L (99-107); CREATININE 0.63 MG/DL (0.40-0.90); GLUCOSE 184 MG/DL (70-104); MAGNESIUM 1.7 MG/DL (1.5-2.4); POTASSIUM 3.8 MMOL/L (3.5-5.1); SODIUM 140 MMOL/L (135-145); TOTAL CARBON DIOXIDE 26.8 MMOL/L (24-32); TOTAL PROTEIN 5.8 G/DL (6.4-8.2); eCRCL 77 ML/MIN; eGFR > 90 ML/MIN
[2023-04-11] MEDS: nystatin 15 GM powder TP SCH (07:18)
[2023-04-11] MEDS: VANCOMYCIN LEVEL IV ONE (09:30)
[2023-04-11 10:00] VITALS: BP 161/94; PULSE 91; RESP 20; TEMP 97.4; O2SAT 98
[2023-04-11] MEDS ORDERED: midazolam 1 mg/ML 2ml injection ONE (12:53)
[2023-04-11] MEDS ORDERED: iohexol 300mg/ml 100ml inj. ONE (12:54)
[2023-04-11] MEDS ORDERED: fentaNYL/PF 50MCG/1 ML 2ML syringe ONE (12:54)
[2023-04-11] MEDS ORDERED: heparin 1,000 UNITS/NS 500ml 500 ML ONE ×2 (12:54→15:51)
[2023-04-11] MEDS: normal saline 1000ml 1,000 ML IV SCH (14:30)
[2023-04-11] MEDS ORDERED: diphenhydrAMINE 50 mg/ml inj ONE (14:33)
[2023-04-11] MEDS ORDERED: heparin 1,000unit/ml 10ml vial 10 ML ONE (15:26)
[2023-04-11] MEDS ORDERED: morphine 2 MG/ML inj. syringe IV PRN (15:55)
[2023-04-11 18:00] VITALS: BP 160/98; PULSE 91; RESP 18; TEMP 96.6; O2SAT 96
[2023-04-11 20:00] VITALS: RESP 18; O2SAT 96
[2023-04-11] MEDS: clopidogrel 75mg tablet PO SCH (20:52)
[2023-04-11 22:00] VITALS: BP 148/82; PULSE 89; RESP 16; TEMP 97.8; O2SAT 98
[2023-04-12] VITALS (10 sets, daily range): BP systolic 144–172; BP diastolic 59–78; PULSE 87–94; RESP 16–20; TEMP 97–97.9; O2SAT 94–98
[2023-04-12 06:34] LABS: BASOPHILS # (AUTO) 0.1 X10'3 (0-0.2); EOSINOPHILS # (AUTO) 0.3 X10'3 (0-0.9); EOSINOPHILS % (AUTO) 3.6 % (0-6); HEMATOCRIT 36.7 % (35.0-45.0); HEMOGLOBIN 12.2 g/dl (12.0-16.0); LYMPHOCYTES # (AUTO) 1.4 X10'3 (1.1-4.8); LYMPHOCYTES % (AUTO) 20.1 % (21-51); MEAN CORPUSCULAR HEMOGLOBIN 27.7 PG (27.0-31.0); MEAN CORPUSCULAR HGB CONC 33.2 g/dL (33.0-36.5); MEAN CORPUSCULAR VOLUME 83.2 FL (78-98); MONOCYTES # (AUTO) 0.6 X10'3 (0-0.9); MONOCYTES % (AUTO) 8.7 % (2-12); NEUTROPHILS # (AUTO) 4.8 X10'3 (1.8-7.7); NEUTROPHILS % (AUTO) 66.6 % (42-75); PLATELET COUNT 128 X10'3 (140-440); RED BLOOD COUNT 4.41 X10'6 (4.20-5.60); RED CELL DISTRIBUTION WIDTH 14.6 % (11.5-14.5); WHITE BLOOD COUNT 7.2 X10'3 (4.5-11.0)
[2023-04-12 06:43] LABS: ALANINE AMINOTRANSFERASE 12 U/L (12-78); ALBUMIN 1.8 G/DL (3.4-5.0); ALBUMIN/GLOBULIN RATIO 0.5 (1.1-1.5); ALKALINE PHOSPHATASE 98 IU/L (46-116); ANION GAP 6 (8-16); ASPARTATE AMINO TRANSFERASE 29 U/L (10-37); BILIRUBIN,TOTAL 0.3 MG/DL (0.1-1.0); BLOOD UREA NITROGEN 18 MG/DL (7-18); CALCIUM 7.6 MG/DL (8.5-10.1); CHLORIDE 106 MMOL/L (99-107); GLUCOSE 136 MG/DL (70-104); MAGNESIUM 1.7 MG/DL (1.5-2.4); POTASSIUM 3.4 MMOL/L (3.5-5.1); SODIUM 139 MMOL/L (135-145); TOTAL CARBON DIOXIDE 27.3 MMOL/L (24-32); TOTAL PROTEIN 5.4 G/DL (6.4-8.2); eCRCL 81 ML/MIN; eGFR > 90 ML/MIN
[2023-04-12] MEDS: HYDROcodone/acetaminophen 5mg/325mg tablet PO PRN (11:07)
[2023-04-12] MEDS: potassium Cl 20 mEq SR tablet PO PRN (14:39)
[2023-04-12] MEDS: amLODIPine 5mg tablet PO SCH (16:25)
[2023-04-13 02:00] VITALS: BP 153/93; PULSE 91; RESP 24; TEMP 98.6; O2SAT 99
[2023-04-13] MEDS: albuterol 2.5 MG/3 ML nebule NEB ONE (02:29)
[2023-04-13 02:31] VITALS: PULSE 91; RESP 18; O2SAT 96
[2023-04-13 02:36] VITALS: PULSE 93; RESP 18
[2023-04-13 04:54] LABS: BASOPHILS # (AUTO) 0.1 X10'3 (0-0.2); BASOPHILS % (AUTO) 1.2 % (0-1); EOSINOPHILS # (AUTO) 0.3 X10'3 (0-0.9); EOSINOPHILS % (AUTO) 4.1 % (0-6); HEMATOCRIT 37.7 % (35.0-45.0); HEMOGLOBIN 12.6 g/dl (12.0-16.0); LYMPHOCYTES # (AUTO) 1.3 X10'3 (1.1-4.8); LYMPHOCYTES % (AUTO) 21.1 % (21-51); MEAN CORPUSCULAR HEMOGLOBIN 27.6 PG (27.0-31.0); MEAN CORPUSCULAR HGB CONC 33.4 g/dL (33.0-36.5); MEAN CORPUSCULAR VOLUME 82.6 FL (78-98); MEAN PLATELET VOLUME 8.4 FL (7.4-10.4); MONOCYTES # (AUTO) 0.6 X10'3 (0-0.9); MONOCYTES % (AUTO) 9.3 % (2-12); NEUTROPHILS # (AUTO) 3.9 X10'3 (1.8-7.7); NEUTROPHILS % (AUTO) 64.3 % (42-75); PLATELET COUNT 123 X10'3 (140-440); RED BLOOD COUNT 4.57 X10'6 (4.20-5.60); RED CELL DISTRIBUTION WIDTH 14.3 % (11.5-14.5); WHITE BLOOD COUNT 6.1 X10'3 (4.5-11.0)
[2023-04-13 05:13] LABS: ALANINE AMINOTRANSFERASE 13 U/L (12-78); ALBUMIN 1.9 G/DL (3.4-5.0); ALBUMIN/GLOBULIN RATIO 0.5 (1.1-1.5); ALKALINE PHOSPHATASE 109 IU/L (46-116); ANION GAP 9 (8-16); ASPARTATE AMINO TRANSFERASE 30 U/L (10-37); BILIRUBIN,TOTAL 0.4 MG/DL (0.1-1.0); BLOOD UREA NITROGEN 19 MG/DL (7-18); BUN/CREATININE RATIO 36.5 (10.0-20.0); CALCIUM 8.1 MG/DL (8.5-10.1); CHLORIDE 106 MMOL/L (99-107); CREATININE 0.52 MG/DL (0.40-0.90); GLUCOSE 189 MG/DL (70-104); MAGNESIUM 1.6 MG/DL (1.5-2.4); POTASSIUM 4.1 MMOL/L (3.5-5.1); SODIUM 140 MMOL/L (135-145); TOTAL CARBON DIOXIDE 25.5 MMOL/L (24-32); TOTAL PROTEIN 5.9 G/DL (6.4-8.2); eCRCL 93 ML/MIN; eGFR > 90 ML/MIN
[2023-04-13 06:00] VITALS: BP 171/82; PULSE 92; RESP 18; TEMP 97.6; O2SAT 98
[2023-04-13 11:00] VITALS: BP 162/92; PULSE 93; RESP 20; TEMP 97.7; O2SAT 97
[2023-04-13 15:00] VITALS: BP 137/82; PULSE 98; RESP 20; TEMP 98.9; O2SAT 97
[2023-04-13] MEDS ORDERED: metroNIDAZOLE 500mg tablet PO SCH (20:00)
== END 2023-04-13 21:45 | DRG 182 ==
LOC: ER 17:47 → ED HOLD 22:59 → ORTHO 4S 04-10 20:55 → PCU 3S 04-12 14:32
PROVIDERS: ADMIT Internal Medicine; ATTEND Internal Medicine
PROC: B4241ZZ Computerized Tomography (CT Scan) of Superior Mesenteric Artery using Low Osmolar Contrast (ICD-10-PCS; 2023-04-10)
PROC: B4281ZZ Computerized Tomography (CT Scan) of Bilateral Renal Arteries using Low Osmolar Contrast (ICD-10-PCS; 2023-04-10)
PROC: B4201ZZ Computerized Tomography (CT Scan) of Abdominal Aorta using Low Osmolar Contrast (ICD-10-PCS; 2023-04-10)
PROC: B42C1ZZ Computerized Tomography (CT Scan) of Pelvic Arteries using Low Osmolar Contrast (ICD-10-PCS; 2023-04-10)
PROC: B42H1ZZ Computerized Tomography (CT Scan) of Bilateral Lower Extremity Arteries using Low Osmolar Contrast (ICD-10-PCS; 2023-04-10)
PROC: B4211ZZ Computerized Tomography (CT Scan) of Celiac Artery using Low Osmolar Contrast (ICD-10-PCS; 2023-04-10)
PROC: B42H1ZZ Computerized Tomography (CT Scan) of Bilateral Lower Extremity Arteries using Low Osmolar Contrast (ICD-10-PCS; 2023-04-10)
PROC: 047K3DZ Dilation of Right Femoral Artery with Intraluminal Device, Percutaneous Approach (ICD-10-PCS; principal; 2023-04-11)
PROC: B41G1ZZ Fluoroscopy of Left Lower Extremity Arteries using Low Osmolar Contrast (ICD-10-PCS; 2023-04-11)
PROC: B41C1ZZ Fluoroscopy of Pelvic Arteries using Low Osmolar Contrast (ICD-10-PCS; 2023-04-11)
PROC: B41F1ZZ Fluoroscopy of Right Lower Extremity Arteries using Low Osmolar Contrast (ICD-10-PCS; 2023-04-11)
DX: I70.223 Atherosclerosis of native arteries of extremities with rest pain, bilateral legs (principal); E10.69 Type 1 diabetes mellitus with other specified complication; I50.9 Heart failure, unspecified; M86.8X7 Other osteomyelitis, ankle and foot; L03.115 Cellulitis of right lower limb; L03.116 Cellulitis of left lower limb; G35 Multiple sclerosis; J43.9 Emphysema, unspecified; I25.10 Atherosclerotic heart disease of native coronary artery without angina pectoris; Z86.73 Personal history of transient ischemic attack (TIA), and cerebral infarction without residual deficits; Z88.0 Allergy status to penicillin; Z80.8 Family history of malignant neoplasm of other organs or systems; Z59.00 Homelessness unspecified; I25.2 Old myocardial infarction; Z87.891 Personal history of nicotine dependence; Z91.199 Patient's noncompliance with other medical treatment and regimen due to unspecified reason
CPT/HCPCS: 36415; 37226; 71045; 73630; 73720; 75635; 80048; 80053; 80202; 81001; 82948; 83036; 83605; 83735; 83880; 84145; 84484; 85025; 85651; 86140; 87040; 87081; 87088; 93005; 93922; 93925; 94640; 99285; A4620; A4649; A6213; A6258; A6402; A6446; A6449; A9575; C1725; C1760; C1769; C1876; C1894; G0378; J0696; J1200; J1644; J1815; J2250; J3010; J3370; J3490; J7030; J7040; Q9967

== ENCOUNTER 2023-04-22 21:00 | Inpatient (IN) | payer MEDICAID ==
[~2023-04-22] VITALS: Ht 157.5 cm; Wt 75.0 kg
[2023-04-22 21:45] LABS: BASOPHILS % (AUTO) 0.3 % (0-1); EOSINOPHILS # (AUTO) 0.3 X10'3 (0-0.9); EOSINOPHILS % (AUTO) 2.8 % (0-6); MEAN CORPUSCULAR HEMOGLOBIN 27.1 PG (27.0-31.0); MEAN CORPUSCULAR HGB CONC 32.4 g/dL (33.0-36.5); MEAN CORPUSCULAR VOLUME 83.8 FL (78-98); MONOCYTES # (AUTO) 1.3 X10'3 (0-0.9); NEUTROPHILS # (AUTO) 8.9 X10'3 (1.8-7.7); NEUTROPHILS % (AUTO) 70.9 % (42-75); PLATELET COUNT 234 X10'3 (140-440); RED BLOOD COUNT 1.48 X10'6 (4.20-5.60); RED CELL DISTRIBUTION WIDTH 14.8 % (11.5-14.5); WHITE BLOOD COUNT 12.6 X10'3 (4.5-11.0)
[2023-04-22 22:02] LABS: ALBUMIN 2.2 G/DL (3.4-5.0); ANION GAP 7 (8-16); BLOOD UREA NITROGEN 27 MG/DL (7-18); CALCIUM 8.8 MG/DL (8.5-10.1); CHLORIDE 100 MMOL/L (99-107); GLUCOSE 182 MG/DL (70-104); POTASSIUM 4.2 MMOL/L (3.5-5.1); PRO BRAIN NATRIURETIC PEPTIDE 830 PG/ML (0-125); SODIUM 136 MMOL/L (135-145); TOTAL CARBON DIOXIDE 28.9 MMOL/L (24-32); eCRCL 81 ML/MIN; eGFR > 90 ML/MIN
[2023-04-22 22:20] LABS: HEMATOCRIT 12.4 % (35.0-45.0)
[2023-04-22] MEDS ORDERED: HYDROcodone/acetaminophen 5mg/325mg tablet PO PRN (23:25)
[2023-04-22] MEDS ORDERED: magnesium 2GM in 50ml NS 50 ML IV PRN (23:25)
[2023-04-22] MEDS ORDERED: acetaminophen 325mg tablet PO PRN ×2 (23:25)
[2023-04-22] MEDS ORDERED: magnesium 4gm in 100ml NS 100 ML IV PRN (23:25)
[2023-04-22] MEDS ORDERED: mag hydrox/Alum hydrox/simeth 30ml oral suspension PO PRN (23:25)
[2023-04-22] MEDS ORDERED: potassium Cl 20 mEq SR tablet PO PRN ×2 (23:25)
[2023-04-22] MEDS ORDERED: magnesium Cl slow-release 64mg tablet PO PRN (23:25)
[2023-04-22] MEDS ORDERED: potassium Cl 40MEQ/1/2NS 520ml 520 ML IV PRN (23:25)
[2023-04-22] MEDS ORDERED: iohexol 300mg/ml 100ml inj. ONE (23:40)
[2023-04-22] MEDS ORDERED: nitroGLYCERIN 0.4mg SUBLingual tab SL PRN (23:45)
[2023-04-22] MEDS: ringers solution, lacted 1,000 ML IV SCH (23:50)
[2023-04-23] VITALS (15 sets, daily range): BP systolic 133–159; BP diastolic 81–98; PULSE 78–85; RESP 14–21; TEMP 97–98.7; O2SAT 93–100
[2023-04-23] MEDS ORDERED: dextrose 50%-water 50ml dispensing syringe IV PRN ×2 (00:10)
[2023-04-23] MEDS ORDERED: DEXTROSE 15 GM of carb/4 tabs (each vial/BOTTLE has 4 tablets) PO PRN ×2 (00:10)
[2023-04-23] MEDS ORDERED: glucagon, human recombinant 1mg kit SUBCUT PRN (00:10)
[2023-04-23 00:21] LABS: ALANINE AMINOTRANSFERASE 42 U/L (12-78); ALBUMIN 2.2 G/DL (3.4-5.0); ALBUMIN/GLOBULIN RATIO 0.5 (1.1-1.5); ALKALINE PHOSPHATASE 243 IU/L (46-116); ASPARTATE AMINO TRANSFERASE 94 U/L (10-37); BILIRUBIN,DIRECT 0.2 MG/DL (0-0.3); BILIRUBIN,TOTAL 0.4 MG/DL (0.1-1.0); TOTAL PROTEIN 6.7 G/DL (6.4-8.2)
[2023-04-23 00:24] LABS: LACTATE DEHYDROGENASE 233 U/L (81-234)
[2023-04-23 00:57] LABS: INR 1.1 INR; PROTHROMBIN TIME 11.5 SECONDS (9.0-12.0)
[2023-04-23] MEDS: MESSAGE TO PHARMACY PO ONE (01:01)
[2023-04-23] MEDS: pantoprazole 40mg Tablet.DR PO SCH (02:45)
[2023-04-23 05:41] LABS: OCCULT BLOOD STOOL NEGATIVE (Neg)
[2023-04-23] MEDS: K and/or MAG REPLACEMENT MC SCH (08:00)
[2023-04-23 09:57] LABS: ABSOLUTE RETICS # 78000 /CUMM (23000-93000); BASOPHILS # (AUTO) 0.1 X10'3 (0-0.2); EOSINOPHILS # (AUTO) 0.2 X10'3 (0-0.9); EOSINOPHILS % (AUTO) 3.6 % (0-6); HEMATOCRIT 40.9 % (35.0-45.0); HEMOGLOBIN 13.3 g/dl (12.0-16.0); LYMPHOCYTES # (AUTO) 1.1 X10'3 (1.1-4.8); LYMPHOCYTES % (AUTO) 16.4 % (21-51); MEAN CORPUSCULAR HEMOGLOBIN 27.5 PG (27.0-31.0); MEAN CORPUSCULAR HGB CONC 32.5 g/dL (33.0-36.5); MEAN CORPUSCULAR VOLUME 84.5 FL (78-98); MEAN PLATELET VOLUME 8.4 FL (7.4-10.4); MONOCYTES # (AUTO) 0.7 X10'3 (0-0.9); MONOCYTES % (AUTO) 10.5 % (2-12); NEUTROPHILS # (AUTO) 4.6 X10'3 (1.8-7.7); NEUTROPHILS % (AUTO) 68.5 % (42-75); PLATELET COUNT 130 X10'3 (140-440); RED BLOOD COUNT 4.85 X10'6 (4.20-5.60); RED CELL DISTRIBUTION WIDTH 14.9 % (11.5-14.5); RETICULOCYTE % (AUTO) 1.6 % (0.5-1.5); WHITE BLOOD COUNT 6.8 X10'3 (4.5-11.0)
[2023-04-23 11:06] LABS: ALANINE AMINOTRANSFERASE 32 U/L (12-78); ALBUMIN 2.2 G/DL (3.4-5.0); ALBUMIN/GLOBULIN RATIO 0.5 (1.1-1.5); ALKALINE PHOSPHATASE 231 IU/L (46-116); ANION GAP 8 (8-16); ASPARTATE AMINO TRANSFERASE 78 U/L (10-37); BILIRUBIN,TOTAL 0.9 MG/DL (0.1-1.0); BLOOD UREA NITROGEN 25 MG/DL (7-18); BUN/CREATININE RATIO 41.7 (10.0-20.0); CALCIUM 8.7 MG/DL (8.5-10.1); CHLORIDE 101 MMOL/L (99-107); GLUCOSE 140 MG/DL (70-104); MAGNESIUM 2.3 MG/DL (1.5-2.4); POTASSIUM 4.3 MMOL/L (3.5-5.1); SODIUM 136 MMOL/L (135-145); TOTAL CARBON DIOXIDE 27.3 MMOL/L (24-32); TOTAL PROTEIN 6.7 G/DL (6.4-8.2); eCRCL 81 ML/MIN; eGFR > 90 ML/MIN
[2023-04-23 11:30] LABS: % IRON SATURATION 80 % (11-46); IRON 198 UG/DL (49-151); TOTAL IRON BINDING CAPACITY 246 UG/DL (259-388)
[2023-04-23 12:07] LABS: FERRITIN 131 NG/ML (8-252)
[2023-04-23] MEDS: aspirin 81mg, enteric-coated 1 TAB TABLET.DR PO SCH (17:14)
[2023-04-23] MEDS: clopidogrel 75mg tablet PO SCH (17:14)
[2023-04-23] MEDS: insulin glargine (Lantus) pen - multi-dose SQ SCH (21:00)
[2023-04-24] VITALS (7 sets, daily range): BP systolic 135–187; BP diastolic 55–106; PULSE 84–93; RESP 14–19; TEMP 96.9–98; O2SAT 90–98
[2023-04-24 07:40] LABS: BASOPHILS # (AUTO) 0.1 X10'3 (0-0.2); BASOPHILS % (AUTO) 1.2 % (0-1); EOSINOPHILS # (AUTO) 0.2 X10'3 (0-0.9); EOSINOPHILS % (AUTO) 3.2 % (0-6); HEMATOCRIT 43.2 % (35.0-45.0); HEMOGLOBIN 14.3 g/dl (12.0-16.0); LYMPHOCYTES # (AUTO) 1.1 X10'3 (1.1-4.8); LYMPHOCYTES % (AUTO) 18.6 % (21-51); MEAN CORPUSCULAR HGB CONC 33.1 g/dL (33.0-36.5); MEAN CORPUSCULAR VOLUME 84.7 FL (78-98); MEAN PLATELET VOLUME 8.2 FL (7.4-10.4); MONOCYTES # (AUTO) 0.6 X10'3 (0-0.9); MONOCYTES % (AUTO) 9.9 % (2-12); NEUTROPHILS # (AUTO) 4.1 X10'3 (1.8-7.7); NEUTROPHILS % (AUTO) 67.1 % (42-75); PLATELET COUNT 117 X10'3 (140-440); RED CELL DISTRIBUTION WIDTH 15.5 % (11.5-14.5); WHITE BLOOD COUNT 6.2 X10'3 (4.5-11.0)
[2023-04-24 08:26] LABS: ALANINE AMINOTRANSFERASE 26 U/L (12-78); ALBUMIN 2.2 G/DL (3.4-5.0); ALBUMIN/GLOBULIN RATIO 0.5 (1.1-1.5); ALKALINE PHOSPHATASE 234 IU/L (46-116); ANION GAP 5 (8-16); ASPARTATE AMINO TRANSFERASE 62 U/L (10-37); BILIRUBIN,TOTAL 0.6 MG/DL (0.1-1.0); CALCIUM 8.8 MG/DL (8.5-10.1); CHLORIDE 104 MMOL/L (99-107); CREATININE 0.65 MG/DL (0.40-0.90); GLUCOSE 194 MG/DL (70-104); PHOSPHORUS 3.4 MG/DL (2.3-4.5); SODIUM 137 MMOL/L (135-145); TOTAL CARBON DIOXIDE 28.3 MMOL/L (24-32); TOTAL PROTEIN 6.6 G/DL (6.4-8.2); eCRCL 75 ML/MIN; eGFR > 90 ML/MIN
[2023-04-24 08:33] LABS: BLOOD UREA NITROGEN 22 MG/DL (7-18); BUN/CREATININE RATIO 33.8 (10.0-20.0); POTASSIUM 3.9 MMOL/L (3.5-5.1)
[2023-04-24] MEDS: insulin Lispro (HumaLOG) vial - multi-dose SQ SCH (09:07)
[2023-04-24 13:43] LABS: HAPTOGLOBIN 112 mg/dL (33-346)
[2023-04-24] MEDS: hyDRALAzine 10mg tablet PO PRN (14:19)
[2023-04-25] VITALS (7 sets, daily range): BP systolic 147–170; BP diastolic 57–100; PULSE 76–91; RESP 15–18; TEMP 96.8–98.2; O2SAT 95–99
[2023-04-25] MEDS ORDERED: aminophylline 250mg/10ml inj. IV PRN (12:35)
[2023-04-25] MEDS ORDERED: metoprolol tartrate 1mg/ml inj IV PRN (12:35)
[2023-04-25] MEDS ORDERED: nitroGLYCERIN 0.4mg SUBLingual tab SL PRN (12:35)
[2023-04-25] MEDS: metroNIDAZOLE 500mg tablet PO SCH (13:00)
[2023-04-25] MEDS: CefTRIAXone 2gm/D5W 50ml BAG 50 ML IV SCH (13:19)
[2023-04-25] MEDS: VANCOMYCIN 1,500MG in normal saline IV soln 300 ML IV ONE (14:32)
[2023-04-25] MEDS: HYDROcodone/acetaminophen 10/325mg tab PO PRN (20:42)
[2023-04-25] MEDS: vancomycin/NS 1 GM ADD-VANTAGE 250 ML IV SCH (23:21)
[2023-04-26] VITALS (16 sets, daily range): BP systolic 145–192; BP diastolic 64–116; PULSE 75–101; RESP 12–20; TEMP 97–98; O2SAT 95–100
[2023-04-26 06:19] LABS: HBSAG SCREEN Negative (Negative); HEPATITIS C VIRUS ANTIBODY Reactive (Non Reactive)
[2023-04-26 09:54] LABS: BASOPHILS % (AUTO) 0.7 % (0-1); EOSINOPHILS # (AUTO) 0.2 X10'3 (0-0.9); EOSINOPHILS % (AUTO) 2.5 % (0-6); HEMATOCRIT 42.2 % (35.0-45.0); LYMPHOCYTES # (AUTO) 0.9 X10'3 (1.1-4.8); MEAN CORPUSCULAR HEMOGLOBIN 28.1 PG (27.0-31.0); MEAN CORPUSCULAR HGB CONC 33.1 g/dL (33.0-36.5); MEAN CORPUSCULAR VOLUME 84.8 FL (78-98); MEAN PLATELET VOLUME 8.1 FL (7.4-10.4); MONOCYTES # (AUTO) 0.6 X10'3 (0-0.9); MONOCYTES % (AUTO) 9.7 % (2-12); NEUTROPHILS # (AUTO) 4.5 X10'3 (1.8-7.7); NEUTROPHILS % (AUTO) 73.1 % (42-75); PLATELET COUNT 115 X10'3 (140-440); RED BLOOD COUNT 4.97 X10'6 (4.20-5.60); RED CELL DISTRIBUTION WIDTH 15.6 % (11.5-14.5); WHITE BLOOD COUNT 6.2 X10'3 (4.5-11.0)
[2023-04-26 10:25] LABS: ALANINE AMINOTRANSFERASE 32 U/L (12-78); ALBUMIN 2.1 G/DL (3.4-5.0); ALBUMIN/GLOBULIN RATIO 0.5 (1.1-1.5); ALKALINE PHOSPHATASE 257 IU/L (46-116); ANION GAP 9 (8-16); ASPARTATE AMINO TRANSFERASE 60 U/L (10-37); BILIRUBIN,TOTAL 0.3 MG/DL (0.1-1.0); BLOOD UREA NITROGEN 24 MG/DL (7-18); BUN/CREATININE RATIO 29.3 (10.0-20.0); C-REACTIVE PROTEIN 0.14 MG/DL (0.0-0.5); CALCIUM 8.3 MG/DL (8.5-10.1); CHLORIDE 104 MMOL/L (99-107); CREATININE 0.82 MG/DL (0.40-0.90); GLUCOSE 215 MG/DL (70-104); MAGNESIUM 2.1 MG/DL (1.5-2.4); PHOSPHORUS 3.5 MG/DL (2.3-4.5); SODIUM 137 MMOL/L (135-145); TOTAL CARBON DIOXIDE 23.6 MMOL/L (24-32); TOTAL PROTEIN 6.4 G/DL (6.4-8.2); eCRCL 59 ML/MIN; eGFR 72 ML/MIN
[2023-04-26 10:30] LABS: POTASSIUM 4.1 MMOL/L (3.5-5.1)
[2023-04-26] MEDS: regadenoson 0.4mg/5ml syringe IV PRN (10:52)
[2023-04-26] MEDS: ondansetron/PF 4mg/2ml inj IV PRN (11:02)
[2023-04-26] MEDS ORDERED: nitroGLYCERIN 0.4mg SUBLingual tab SL PRN (17:20)
[2023-04-26] MEDS: ondansetron 4mg rapidly disintigrating tab PO PRN (19:45)
[2023-04-26] MEDS: metoprolol succinate 25mg (24-HOUR) SR. Tablet PO SCH (20:51)
[2023-04-26] MEDS: VANCOMYCIN LEVEL IV ONE (23:32)
[2023-04-26] MEDS: proCHLORperazine 10 MG/2 ml inj IV PRN (23:55)
[2023-04-27 02:00] VITALS: BP 128/66; PULSE 72; RESP 18; O2SAT 95
[2023-04-27 08:00] VITALS: RESP 16; O2SAT 99
[2023-04-27 08:13] VITALS: BP 169/87; PULSE 74; RESP 20; TEMP 97.3; O2SAT 94
[2023-04-27] MEDS: atorvastatin 20mg tablet PO SCH (09:19)
[2023-04-27] MEDS: lisinopril 10 MG tablet PO SCH (09:19)
[2023-04-27] MEDS: magnesium hydroxide 30ml (MOM) UD suspension PO PRN (09:20)
[2023-04-27 12:08] VITALS: BP 157/85; PULSE 77; RESP 16; TEMP 98; O2SAT 97
[2023-04-28 00:24] LABS: HIV-1 RNA by PCR <20 copies/mL (.)
== END 2023-04-27 16:34 | DRG 133 ==
LOC: ER 21:01 → ED HOLD 23:30 → EDBEDREQ 04-23 04:44 → PCU 3S 04-23 05:30
PROVIDERS: ADMIT Internal Medicine; ATTEND Internal Medicine
PROC: BW211ZZ Computerized Tomography (CT Scan) of Abdomen and Pelvis using Low Osmolar Contrast (ICD-10-PCS; principal; 2023-04-22)
PROC: 30233N1 Transfusion of Nonautologous Red Blood Cells into Peripheral Vein, Percutaneous Approach (ICD-10-PCS; 2023-04-23)
PROC: 4A02XM4 Measurement of Cardiac Total Activity, External Approach (ICD-10-PCS; 2023-04-26)
PROC: 3E073KZ Introduction of Other Diagnostic Substance into Coronary Artery, Percutaneous Approach (ICD-10-PCS; 2023-04-26)
DX: J96.01 Acute respiratory failure with hypoxia (principal); E43 Unspecified severe protein-calorie malnutrition; E11.51 Type 2 diabetes mellitus with diabetic peripheral angiopathy without gangrene; M86.8X7 Other osteomyelitis, ankle and foot; D64.9 Anemia, unspecified; D72.829 Elevated white blood cell count, unspecified; E11.69 Type 2 diabetes mellitus with other specified complication; G35 Multiple sclerosis; I11.0 Hypertensive heart disease with heart failure; I25.118 Atherosclerotic heart disease of native coronary artery with other forms of angina pectoris; J43.9 Emphysema, unspecified; M79.7 Fibromyalgia; I50.9 Heart failure, unspecified; Z96.641 Presence of right artificial hip joint; Z59.00 Homelessness unspecified; Z79.4 Long term (current) use of insulin; Z88.0 Allergy status to penicillin; Z98.891 History of uterine scar from previous surgery; I25.2 Old myocardial infarction; Z85.828 Personal history of other malignant neoplasm of skin; Z68.30 Body mass index [BMI] 30.0-30.9, adult
CPT/HCPCS: 36415; 36430; 71045; 74177; 78452; 80048; 80053; 80076; 80202; 82103; 82272; 82728; 82948; 83010; 83540; 83550; 83605; 83615; 83735; 83880; 84100; 84484; 85025; 85045; 85610; 85651; 86140; 86803; 86880; 86885; 86900; 86901; 86920; 87040; 87081; 87340; 87522; 87535; 93005; 93017; 93306; 97116; 97161; 97530; 99285; A9500; G0378; J0696; J0780; J1815; J2405; J2785; J3370; J3490; J7040; J7120; P9016; Q9967

== ENCOUNTER 2023-04-29 15:07 | Emergency (ER) | payer MEDICAID ==
[~2023-04-29] VITALS: Ht 157.5 cm; Wt 68.0 kg
[2023-04-29 15:25] VITALS: BP 183/93; PULSE 89; RESP 18; TEMP 97.8; O2SAT 97
== END 2023-04-29 18:31 | disposition home or self-care (01) ==
LOC: ER 15:08
DX: S80.01XA Contusion of right knee, initial encounter (principal); W18.39XA Other fall on same level, initial encounter; Y93.89 Activity, other specified; Y92.89 Other specified places as the place of occurrence of the external cause; Y99.8 Other external cause status; Z86.73 Personal history of transient ischemic attack (TIA), and cerebral infarction without residual deficits; I11.0 Hypertensive heart disease with heart failure; I50.9 Heart failure, unspecified; J45.909 Unspecified asthma, uncomplicated; E11.9 Type 2 diabetes mellitus without complications; Z88.0 Allergy status to penicillin; Z79.899 Other long term (current) drug therapy
CPT/HCPCS: 73564; 99283

== ENCOUNTER 2023-05-03 18:59 | Inpatient (IN) | payer MEDICAID ==
[~2023-05-03] VITALS: Ht 157.5 cm; Wt 79.0 kg
[2023-05-03 19:37] LABS: BASOPHILS # (AUTO) 0.1 X10'3 (0-0.2); BASOPHILS % (AUTO) 1.5 % (0-1); EOSINOPHILS # (AUTO) 0.3 X10'3 (0-0.9); EOSINOPHILS % (AUTO) 4.3 % (0-6); HEMATOCRIT 42.6 % (35.0-45.0); HEMOGLOBIN 14.2 g/dl (12.0-16.0); LYMPHOCYTES # (AUTO) 1.6 X10'3 (1.1-4.8); LYMPHOCYTES % (AUTO) 24.5 % (21-51); MEAN CORPUSCULAR HEMOGLOBIN 28.2 PG (27.0-31.0); MEAN CORPUSCULAR HGB CONC 33.3 g/dL (33.0-36.5); MEAN CORPUSCULAR VOLUME 84.6 FL (78-98); MEAN PLATELET VOLUME 8.7 FL (7.4-10.4); MONOCYTES # (AUTO) 0.7 X10'3 (0-0.9); MONOCYTES % (AUTO) 11.3 % (2-12); NEUTROPHILS # (AUTO) 3.8 X10'3 (1.8-7.7); NEUTROPHILS % (AUTO) 58.4 % (42-75); PLATELET COUNT 125 X10'3 (140-440); RED BLOOD COUNT 5.03 X10'6 (4.20-5.60); RED CELL DISTRIBUTION WIDTH 15.9 % (11.5-14.5); WHITE BLOOD COUNT 6.4 X10'3 (4.5-11.0)
[2023-05-03 19:47] LABS: APTT 24 SECONDS (22-32); PROTHROMBIN TIME 11.2 SECONDS (9.0-12.0)
[2023-05-03 19:50] LABS: ALANINE AMINOTRANSFERASE 25 U/L (12-78); ALBUMIN 2.1 G/DL (3.4-5.0); ALBUMIN/GLOBULIN RATIO 0.5 (1.1-1.5); ALKALINE PHOSPHATASE 212 IU/L (46-116); ANION GAP 10 (8-16); ASPARTATE AMINO TRANSFERASE 43 U/L (10-37); BILIRUBIN,TOTAL 0.4 MG/DL (0.1-1.0); BLOOD UREA NITROGEN 19 MG/DL (7-18); BUN/CREATININE RATIO 24.1 (10.0-20.0); CALCIUM 8.8 MG/DL (8.5-10.1); CHLORIDE 104 MMOL/L (99-107); CREATININE 0.79 MG/DL (0.40-0.90); GLUCOSE 309 MG/DL (70-104); POTASSIUM 3.6 MMOL/L (3.5-5.1); SODIUM 142 MMOL/L (135-145); TOTAL CARBON DIOXIDE 28.5 MMOL/L (24-32); TOTAL PROTEIN 6.3 G/DL (6.4-8.2); eCRCL 61 ML/MIN; eGFR 75 ML/MIN
[2023-05-03] MEDS: morphine 4 MG/ML inj SYRINge IV ONE (19:50)
[2023-05-03] MEDS ORDERED: mag hydrox/Alum hydrox/simeth 30ml oral suspension PO PRN (19:55)
[2023-05-03] MEDS ORDERED: potassium Cl 40MEQ/1/2NS 520ml 520 ML IV PRN (19:55)
[2023-05-03] MEDS ORDERED: potassium Cl 20 mEq SR tablet PO PRN (19:55)
[2023-05-03] MEDS ORDERED: magnesium Cl slow-release 64mg tablet PO PRN (19:55)
[2023-05-03] MEDS ORDERED: magnesium 2GM in 50ml NS 50 ML IV PRN (19:55)
[2023-05-03] MEDS ORDERED: magnesium hydroxide 30ml (MOM) UD suspension PO PRN (19:55)
[2023-05-03] MEDS ORDERED: magnesium 4gm in 100ml NS 100 ML IV PRN (19:55)
[2023-05-03 19:58] LABS: PRO BRAIN NATRIURETIC PEPTIDE 2390 PG/ML (0-125)
[2023-05-03] MEDS: docusate sod 100mg capsule PO SCH (20:00)
[2023-05-03] MEDS: K and/or MAG REPLACEMENT MC SCH (20:21)
[2023-05-03] MEDS: normal saline 1000ml 1,000 ML IV SCH (21:26)
[2023-05-03 22:00] VITALS: BP 117/66; PULSE 82; RESP 18; TEMP 97.3; O2SAT 96
[2023-05-03] MEDS: furosemide 10 MG/1 ML 10ml inj IV ONE (22:26)
[2023-05-04] VITALS (7 sets, daily range): BP systolic 133–153; BP diastolic 67–87; PULSE 76–91; RESP 16–20; TEMP 97.3–98.1; O2SAT 93–99
[2023-05-04] MEDS ORDERED: glucagon, human recombinant 1mg kit SUBCUT PRN (04:00)
[2023-05-04] MEDS ORDERED: DEXTROSE 15 GM of carb/4 tabs (each vial/BOTTLE has 4 tablets) PO PRN (04:00)
[2023-05-04] MEDS ORDERED: dextrose 50%-water 50ml dispensing syringe IV PRN ×2 (04:00)
[2023-05-04] MEDS: MESSAGE TO PHARMACY PO ONE (04:02)
[2023-05-04 07:07] LABS: BASOPHILS # (AUTO) 0.1 X10'3 (0-0.2); EOSINOPHILS # (AUTO) 0.3 X10'3 (0-0.9); EOSINOPHILS % (AUTO) 6.4 % (0-6); HEMATOCRIT 38.5 % (35.0-45.0); HEMOGLOBIN 12.9 g/dl (12.0-16.0); LYMPHOCYTES # (AUTO) 1.5 X10'3 (1.1-4.8); LYMPHOCYTES % (AUTO) 29.3 % (21-51); MEAN CORPUSCULAR HEMOGLOBIN 28.3 PG (27.0-31.0); MEAN CORPUSCULAR HGB CONC 33.6 g/dL (33.0-36.5); MEAN CORPUSCULAR VOLUME 84.1 FL (78-98); MEAN PLATELET VOLUME 9.1 FL (7.4-10.4); MONOCYTES # (AUTO) 0.5 X10'3 (0-0.9); MONOCYTES % (AUTO) 10.7 % (2-12); NEUTROPHILS # (AUTO) 2.6 X10'3 (1.8-7.7); NEUTROPHILS % (AUTO) 52.6 % (42-75); PLATELET COUNT 108 X10'3 (140-440); RED BLOOD COUNT 4.57 X10'6 (4.20-5.60); RED CELL DISTRIBUTION WIDTH 16.1 % (11.5-14.5)
[2023-05-04 07:24] LABS: ANION GAP 7 (8-16); BLOOD UREA NITROGEN 16 MG/DL (7-18); BUN/CREATININE RATIO 23.2 (10.0-20.0); CALCIUM 7.9 MG/DL (8.5-10.1); CHLORIDE 104 MMOL/L (99-107); CREATININE 0.69 MG/DL (0.40-0.90); GLUCOSE 274 MG/DL (70-104); MAGNESIUM 1.6 MG/DL (1.5-2.4); POTASSIUM 3.2 MMOL/L (3.5-5.1); SODIUM 141 MMOL/L (135-145); TOTAL CARBON DIOXIDE 29.9 MMOL/L (24-32); eCRCL 70 ML/MIN; eGFR 87 ML/MIN
[2023-05-04] MEDS: clopidogrel 75mg tablet PO SCH (08:00)
[2023-05-04] MEDS: atorvastatin 20mg tablet PO SCH (08:00)
[2023-05-04] MEDS: metoprolol tartrate 25mg tablet PO SCH (08:00)
[2023-05-04 08:35] LABS: CHOL/HDL RATIO 2.9 (0.00-4.99); CHOLESTEROL 180 MG/DL (0-200); HDL CHOLESTEROL 62 MG/DL (35-60); LDL CHOLESTEROL 89 MG/DL (50-100); TRIGLYCERIDES 97 MG/DL (20-135)
[2023-05-04] MEDS: enoxaparin 40mg/0.4ml syringe SUBCUT SCH (08:45)
[2023-05-04] MEDS: furosemide 40mg/4ml inj IV SCH (08:46)
[2023-05-04] MEDS: potassium Cl 20 mEq SR tablet PO PRN (09:23)
[2023-05-04] MEDS: insulin Lispro (HumaLOG) vial - multi-dose SQ SCH (09:27)
[2023-05-04] MEDS: acetaminophen 325mg tablet PO PRN (09:29)
[2023-05-04] MEDS: morphine 2 MG/ML inj. syringe IV PRN (19:09)
[2023-05-04] MEDS: insulin glargine (Lantus) pen - multi-dose SQ SCH (20:45)
[2023-05-05] VITALS (8 sets, daily range): BP systolic 136–150; BP diastolic 69–83; PULSE 69–78; RESP 12–20; TEMP 97–98.2; O2SAT 89–99
[2023-05-05 05:34] LABS: URINE AMPHETAMINE SCREEN NEGATIVE (Neg); URINE BARBITUATE SCREEN NEGATIVE (Neg); URINE BENZODIAZEPINES SCREEN NEGATIVE (Neg); URINE CANNABINOID SCREEN NEGATIVE (Neg); URINE COCAINE SCREEN NEGATIVE (Neg); URINE METHADONE SCREEN NEGATIVE (Neg); URINE OPIATE SCREEN POSITIVE (Neg); URINE PHENCYCLIDINE SCREEN NEGATIVE (Neg)
[2023-05-05 07:24] LABS: BASOPHILS # (AUTO) 0.1 X10'3 (0-0.2); EOSINOPHILS # (AUTO) 0.3 X10'3 (0-0.9); EOSINOPHILS % (AUTO) 5.2 % (0-6); HEMATOCRIT 39.8 % (35.0-45.0); HEMOGLOBIN 13.2 g/dl (12.0-16.0); LYMPHOCYTES # (AUTO) 1.2 X10'3 (1.1-4.8); LYMPHOCYTES % (AUTO) 20.1 % (21-51); MEAN CORPUSCULAR HGB CONC 33.1 g/dL (33.0-36.5); MEAN CORPUSCULAR VOLUME 84.5 FL (78-98); MEAN PLATELET VOLUME 8.9 FL (7.4-10.4); MONOCYTES # (AUTO) 0.6 X10'3 (0-0.9); MONOCYTES % (AUTO) 9.6 % (2-12); NEUTROPHILS # (AUTO) 3.8 X10'3 (1.8-7.7); NEUTROPHILS % (AUTO) 64.1 % (42-75); PLATELET COUNT 105 X10'3 (140-440); RED BLOOD COUNT 4.71 X10'6 (4.20-5.60); RED CELL DISTRIBUTION WIDTH 16.1 % (11.5-14.5)
[2023-05-05 07:36] LABS: ALBUMIN 2.1 G/DL (3.4-5.0); ANION GAP 5 (8-16); BLOOD UREA NITROGEN 23 MG/DL (7-18); BUN/CREATININE RATIO 36.5 (10.0-20.0); CALCIUM 8.1 MG/DL (8.5-10.1); CHLORIDE 104 MMOL/L (99-107); CREATININE 0.63 MG/DL (0.40-0.90); GLUCOSE 253 MG/DL (70-104); MAGNESIUM 1.6 MG/DL (1.5-2.4); POTASSIUM 4.4 MMOL/L (3.5-5.1); SODIUM 138 MMOL/L (135-145); TOTAL CARBON DIOXIDE 29.2 MMOL/L (24-32); eCRCL 77 ML/MIN; eGFR > 90 ML/MIN
[2023-05-05] MEDS: aspirin 81mg tab.chew PO ONE (14:31)
[2023-05-05] MEDS ORDERED: iohexol 350 MG/ML 50ML vial IV ONE (15:26)
[2023-05-05] MEDS ORDERED: iohexol 350MG/ML 100ml bottle IV ONE (15:26)
[2023-05-06] VITALS (8 sets, daily range): BP systolic 115–146; BP diastolic 51–89; PULSE 70–83; RESP 14–20; TEMP 97.6–98.5; O2SAT 95–98
[2023-05-06 06:20] LABS: BASOPHILS # (AUTO) 0.1 X10'3 (0-0.2); EOSINOPHILS # (AUTO) 0.3 X10'3 (0-0.9); EOSINOPHILS % (AUTO) 4.3 % (0-6); HEMATOCRIT 39.8 % (35.0-45.0); HEMOGLOBIN 13.3 g/dl (12.0-16.0); LYMPHOCYTES # (AUTO) 1.1 X10'3 (1.1-4.8); LYMPHOCYTES % (AUTO) 18.8 % (21-51); MEAN CORPUSCULAR HGB CONC 33.3 g/dL (33.0-36.5); MEAN CORPUSCULAR VOLUME 83.9 FL (78-98); MONOCYTES # (AUTO) 0.6 X10'3 (0-0.9); MONOCYTES % (AUTO) 10.3 % (2-12); NEUTROPHILS % (AUTO) 65.6 % (42-75); PLATELET COUNT 99 X10'3 (140-440); RED BLOOD COUNT 4.74 X10'6 (4.20-5.60); RED CELL DISTRIBUTION WIDTH 15.7 % (11.5-14.5)
[2023-05-06 06:25] LABS: ALBUMIN 1.9 G/DL (3.4-5.0); ANION GAP 7 (8-16); BLOOD UREA NITROGEN 23 MG/DL (7-18); BUN/CREATININE RATIO 32.4 (10.0-20.0); CALCIUM 8.1 MG/DL (8.5-10.1); CHLORIDE 103 MMOL/L (99-107); CREATININE 0.71 MG/DL (0.40-0.90); GLUCOSE 217 MG/DL (70-104); MAGNESIUM 1.7 MG/DL (1.5-2.4); POTASSIUM 4.3 MMOL/L (3.5-5.1); SODIUM 137 MMOL/L (135-145); TOTAL CARBON DIOXIDE 26.8 MMOL/L (24-32); eCRCL 68 ML/MIN; eGFR 85 ML/MIN
[2023-05-06] MEDS: ondansetron/PF 4mg/2ml inj IV PRN (07:22)
[2023-05-06] MEDS: aspirin 81mg, enteric-coated 1 TAB TABLET.DR PO SCH (10:34)
[2023-05-06] MEDS: oxyCODONE SR 10mg (sust. release) tab PO ONE (15:07)
[2023-05-06] MEDS: metroNIDAZOLE 500mg tablet PO SCH (15:07)
[2023-05-06] MEDS: CefTRIAXone 2gm/D5W 50ml BAG 50 ML IV SCH (15:31)
[2023-05-06] MEDS ORDERED: loperamide 2mg capsule PO PRN (15:50)
[2023-05-06] MEDS: VANCOmycin 1250MG/NS 250ml Bag 250 ML IV SCH (16:02)
[2023-05-06] MEDS: loperamide 2mg capsule PO ONE (16:02)
[2023-05-07] VITALS (9 sets, daily range): BP systolic 126–179; BP diastolic 54–82; PULSE 65–86; RESP 16–20; TEMP 97–98.1; O2SAT 94–100
[2023-05-07 05:52] LABS: ALBUMIN 1.9 G/DL (3.4-5.0); ANION GAP 7 (8-16); BLOOD UREA NITROGEN 25 MG/DL (7-18); BUN/CREATININE RATIO 36.8 (10.0-20.0); CALCIUM 8.7 MG/DL (8.5-10.1); CHLORIDE 105 MMOL/L (99-107); CREATININE 0.68 MG/DL (0.40-0.90); GLUCOSE 135 MG/DL (70-104); MAGNESIUM 1.9 MG/DL (1.5-2.4); POTASSIUM 3.8 MMOL/L (3.5-5.1); SODIUM 140 MMOL/L (135-145); TOTAL CARBON DIOXIDE 27.6 MMOL/L (24-32); eCRCL 71 ML/MIN; eGFR 89 ML/MIN
[2023-05-07 06:13] LABS: BASOPHILS % (AUTO) 0.5 % (0-1); EOSINOPHILS # (AUTO) 0.3 X10'3 (0-0.9); EOSINOPHILS % (AUTO) 5.1 % (0-6); HEMATOCRIT 40.3 % (35.0-45.0); HEMOGLOBIN 13.3 g/dl (12.0-16.0); LYMPHOCYTES # (AUTO) 0.8 X10'3 (1.1-4.8); LYMPHOCYTES % (AUTO) 13.6 % (21-51); MEAN CORPUSCULAR HEMOGLOBIN 28.1 PG (27.0-31.0); MEAN CORPUSCULAR VOLUME 85.3 FL (78-98); MEAN PLATELET VOLUME 10.1 FL (7.4-10.4); MONOCYTES # (AUTO) 0.6 X10'3 (0-0.9); MONOCYTES % (AUTO) 9.2 % (2-12); NEUTROPHILS # (AUTO) 4.4 X10'3 (1.8-7.7); NEUTROPHILS % (AUTO) 71.6 % (42-75); PLATELET COUNT 101 X10'3 (140-440); RED BLOOD COUNT 4.72 X10'6 (4.20-5.60); RED CELL DISTRIBUTION WIDTH 16.1 % (11.5-14.5); WHITE BLOOD COUNT 6.2 X10'3 (4.5-11.0)
[2023-05-07] MEDS: oxyCODONE SR 10mg (sust. release) tab PO SCH (10:41)
[2023-05-07] MEDS ORDERED: docusate sod 100mg capsule PO PRN (10:45)
[2023-05-07] MEDS: DEXTROSE 15 GM of carb/4 tabs (each vial/BOTTLE has 4 tablets) PO PRN (17:33)
[2023-05-08] VITALS (8 sets, daily range): BP systolic 142–160; BP diastolic 67–84; PULSE 66–82; RESP 16–18; TEMP 97–98.2; O2SAT 94–100
[2023-05-08] MEDS: VANCOMYCIN LEVEL IJ ONE (03:24)
[2023-05-08 03:32] LABS: ALBUMIN 2.1 G/DL (3.4-5.0); ANION GAP 5 (8-16); BLOOD UREA NITROGEN 23 MG/DL (7-18); BUN/CREATININE RATIO 27.4 (10.0-20.0); CALCIUM 9.1 MG/DL (8.5-10.1); CHLORIDE 103 MMOL/L (99-107); CREATININE 0.84 MG/DL (0.40-0.90); GLUCOSE 215 MG/DL (70-104); POTASSIUM 4.3 MMOL/L (3.5-5.1); SODIUM 137 MMOL/L (135-145); TOTAL CARBON DIOXIDE 28.8 MMOL/L (24-32); eCRCL 58 ML/MIN; eGFR 70 ML/MIN
[2023-05-08 03:46] LABS: VANCOMYCIN,TROUGH 19.4 ug/mL (10.0-20.0)
[2023-05-08 05:49] LABS: BASOPHILS % (AUTO) 0.7 % (0-1); EOSINOPHILS # (AUTO) 0.3 X10'3 (0-0.9); EOSINOPHILS % (AUTO) 5.5 % (0-6); LYMPHOCYTES # (AUTO) 1.1 X10'3 (1.1-4.8); LYMPHOCYTES % (AUTO) 19.9 % (21-51); MEAN CORPUSCULAR HEMOGLOBIN 27.9 PG (27.0-31.0); MEAN CORPUSCULAR HGB CONC 33.2 g/dL (33.0-36.5); MEAN CORPUSCULAR VOLUME 83.9 FL (78-98); MONOCYTES # (AUTO) 0.7 X10'3 (0-0.9); MONOCYTES % (AUTO) 11.9 % (2-12); NEUTROPHILS # (AUTO) 3.4 X10'3 (1.8-7.7); PLATELET COUNT 92 X10'3 (140-440); RED BLOOD COUNT 4.66 X10'6 (4.20-5.60); RED CELL DISTRIBUTION WIDTH 15.7 % (11.5-14.5); WHITE BLOOD COUNT 5.5 X10'3 (4.5-11.0)
[2023-05-09] VITALS (9 sets, daily range): BP systolic 130–172; BP diastolic 51–93; PULSE 70–83; RESP 18–23; TEMP 97.5–97.9; O2SAT 96–100
[2023-05-09 06:49] LABS: BASOPHILS # (AUTO) 0.1 X10'3 (0-0.2); BASOPHILS % (AUTO) 0.9 % (0-1); EOSINOPHILS # (AUTO) 0.3 X10'3 (0-0.9); EOSINOPHILS % (AUTO) 5.3 % (0-6); HEMATOCRIT 39.5 % (35.0-45.0); HEMOGLOBIN 13.1 g/dl (12.0-16.0); LYMPHOCYTES # (AUTO) 1.6 X10'3 (1.1-4.8); LYMPHOCYTES % (AUTO) 25.1 % (21-51); MEAN CORPUSCULAR HEMOGLOBIN 28.1 PG (27.0-31.0); MEAN CORPUSCULAR HGB CONC 33.3 g/dL (33.0-36.5); MEAN CORPUSCULAR VOLUME 84.5 FL (78-98); MEAN PLATELET VOLUME 9.2 FL (7.4-10.4); MONOCYTES # (AUTO) 0.7 X10'3 (0-0.9); MONOCYTES % (AUTO) 11.6 % (2-12); NEUTROPHILS # (AUTO) 3.7 X10'3 (1.8-7.7); NEUTROPHILS % (AUTO) 57.1 % (42-75); PLATELET COUNT 101 X10'3 (140-440); RED BLOOD COUNT 4.68 X10'6 (4.20-5.60); RED CELL DISTRIBUTION WIDTH 15.6 % (11.5-14.5); WHITE BLOOD COUNT 6.4 X10'3 (4.5-11.0)
[2023-05-09 07:12] LABS: ALANINE AMINOTRANSFERASE 33 U/L (12-78); ALBUMIN/GLOBULIN RATIO 0.5 (1.1-1.5); ALKALINE PHOSPHATASE 189 IU/L (46-116); ANION GAP 9 (8-16); ASPARTATE AMINO TRANSFERASE 77 U/L (10-37); BILIRUBIN,TOTAL 0.3 MG/DL (0.1-1.0); BLOOD UREA NITROGEN 20 MG/DL (7-18); BUN/CREATININE RATIO 30.3 (10.0-20.0); CALCIUM 8.2 MG/DL (8.5-10.1); CHLORIDE 105 MMOL/L (99-107); CREATININE 0.66 MG/DL (0.40-0.90); GLUCOSE 151 MG/DL (70-104); POTASSIUM 4.3 MMOL/L (3.5-5.1); SODIUM 139 MMOL/L (135-145); TOTAL CARBON DIOXIDE 25.4 MMOL/L (24-32); eCRCL 73 ML/MIN; eGFR > 90 ML/MIN
[2023-05-09] MEDS: amLODIPine 5mg tablet PO SCH (18:00)
[2023-05-10 06:30] VITALS: BP 133/70; PULSE 73; RESP 15; TEMP 98.2; O2SAT 100
[2023-05-10] MEDS ORDERED: ASPI-1071 PO (13:24)
[2023-05-10] MEDS ORDERED: ATOR20TA66 PO (13:24)
[2023-05-10] MEDS ORDERED: CLOP75TA34 PO (13:24)
[2023-05-10] MEDS ORDERED: LOP25T PO (13:24)
[2023-05-10] MEDS ORDERED: NOR5T PO (13:24)
[2023-05-10 15:00] VITALS: BP 145/68; PULSE 79; RESP 17; TEMP 97.2; O2SAT 99
== END 2023-05-10 16:20 | disposition home or self-care (01) | DRG 344 ==
LOC: ER 19:00 → ED HOLD 19:59 → UNDOADMIN 19:59 → ED HOLD 22:03 → PCU 3S 22:03 → ED HOLD 05-04 06:13
PROVIDERS: ADMIT Internal Medicine; ATTEND Family Medicine
DX: E11.69 Type 2 diabetes mellitus with other specified complication (principal); M86.8X6 Other osteomyelitis, lower leg; I50.30 Unspecified diastolic (congestive) heart failure; E11.51 Type 2 diabetes mellitus with diabetic peripheral angiopathy without gangrene; I25.10 Atherosclerotic heart disease of native coronary artery without angina pectoris; E78.5 Hyperlipidemia, unspecified; Z79.899 Other long term (current) drug therapy; Z88.1 Allergy status to other antibiotic agents; Z88.0 Allergy status to penicillin
CPT/HCPCS: 36415; 71045; 73700; 75635; 80048; 80053; 80061; 80202; 80305; 82948; 83036; 83735; 83880; 84484; 85025; 85610; 85730; 87081; 93005; 96374; 97116; 97161; 97530; 99291; A4615; A6213; A6449; G0378; J0696; J1650; J1815; J1940; J2270; J2405; J3370; J3490; J7030; J7040; Q9967

== ENCOUNTER 2023-05-13 20:25 | Inpatient (IN) | payer MEDICAID ==
[~2023-05-13] VITALS: Ht 157.5 cm; Wt 73.0 kg
[~2023-05-13 20:25] MED LIST changes: +ASPI-1071 PO; +ATOR20TA66 PO; +CLOP75TA34 PO; +LOP25T PO; +NOR5T PO
[2023-05-13 20:51] LABS: BASOPHILS # (AUTO) 0.1 X10'3 (0-0.2); BASOPHILS % (AUTO) 0.8 % (0-1); EOSINOPHILS # (AUTO) 0.1 X10'3 (0-0.9); HEMATOCRIT 42.2 % (35.0-45.0); HEMOGLOBIN 14.3 g/dl (12.0-16.0); LYMPHOCYTES # (AUTO) 1.5 X10'3 (1.1-4.8); LYMPHOCYTES % (AUTO) 13.3 % (21-51); MEAN CORPUSCULAR HEMOGLOBIN 28.5 PG (27.0-31.0); MEAN CORPUSCULAR HGB CONC 33.9 g/dL (33.0-36.5); MEAN CORPUSCULAR VOLUME 84.2 FL (78-98); MEAN PLATELET VOLUME 8.2 FL (7.4-10.4); MONOCYTES % (AUTO) 9.5 % (2-12); NEUTROPHILS # (AUTO) 8.3 X10'3 (1.8-7.7); NEUTROPHILS % (AUTO) 75.4 % (42-75); PLATELET COUNT 122 X10'3 (140-440); RED BLOOD COUNT 5.01 X10'6 (4.20-5.60); RED CELL DISTRIBUTION WIDTH 16.3 % (11.5-14.5)
[2023-05-13 21:18] LABS: ALBUMIN 2.4 G/DL (3.4-5.0); ANION GAP 8 (8-16); BLOOD UREA NITROGEN 19 MG/DL (7-18); BUN/CREATININE RATIO 22.6 (10.0-20.0); CALCIUM 8.8 MG/DL (8.5-10.1); CHLORIDE 103 MMOL/L (99-107); CREATININE 0.84 MG/DL (0.40-0.90); ETHANOL < 10 MG/DL (<10); GLUCOSE 259 MG/DL (70-104); LIPASE 17 U/L (16-77); POTASSIUM 3.8 MMOL/L (3.5-5.1); SODIUM 139 MMOL/L (135-145); TOTAL CARBON DIOXIDE 27.8 MMOL/L (24-32); eCRCL 58 ML/MIN; eGFR 70 ML/MIN
[2023-05-14] VITALS (8 sets, daily range): BP systolic 101–143; BP diastolic 49–74; PULSE 65–100; RESP 12–20; TEMP 97.3–98.6; O2SAT 95–100
[2023-05-14] MEDS ORDERED: magnesium 2GM in 50ml NS 50 ML IV PRN (00:50)
[2023-05-14] MEDS ORDERED: acetaminophen 325mg tablet PO PRN (00:50)
[2023-05-14] MEDS ORDERED: mag hydrox/Alum hydrox/simeth 30ml oral suspension PO PRN (00:50)
[2023-05-14] MEDS ORDERED: potassium Cl 40MEQ/1/2NS 520ml 520 ML IV PRN (00:50)
[2023-05-14] MEDS ORDERED: magnesium Cl slow-release 64mg tablet PO PRN (00:50)
[2023-05-14] MEDS ORDERED: potassium Cl 20 mEq SR tablet PO PRN ×2 (00:50)
[2023-05-14] MEDS ORDERED: morphine 2 MG/ML inj. syringe IV PRN (00:50)
[2023-05-14] MEDS ORDERED: ondansetron/PF 4mg/2ml inj IV PRN (00:50)
[2023-05-14] MEDS ORDERED: magnesium hydroxide 30ml (MOM) UD suspension PO PRN (00:50)
[2023-05-14] MEDS ORDERED: magnesium 4gm in 100ml NS 100 ML IV PRN (00:50)
[2023-05-14] MEDS ORDERED: dextrose 50%-water 50ml dispensing syringe IV PRN ×2 (01:20)
[2023-05-14] MEDS ORDERED: glucagon, human recombinant 1mg kit SUBCUT PRN (01:20)
[2023-05-14] MEDS ORDERED: DEXTROSE 15 GM of carb/4 tabs (each vial/BOTTLE has 4 tablets) PO PRN ×2 (01:20)
[2023-05-14] MEDS ORDERED: nitroGLYCERIN 0.4mg SUBLingual tab SL PRN (02:45)
[2023-05-14] MEDS: morphine 2 MG/ML inj. syringe IV PRN (03:22)
[2023-05-14] MEDS: K and/or MAG REPLACEMENT MC SCH (08:00)
[2023-05-14] MEDS ORDERED: HYDROcodone/acetaminophen 5mg/325mg tablet PO PRN (08:50)
[2023-05-14] MEDS: docusate sod 100mg capsule PO SCH (10:26)
[2023-05-14] MEDS: pantoprazole 40mg Tablet.DR PO SCH (10:26)
[2023-05-14] MEDS: clopidogrel 75mg tablet PO SCH (10:26)
[2023-05-14] MEDS: amLODIPine 5mg tablet PO SCH (10:27)
[2023-05-14] MEDS: aspirin 81mg, enteric-coated 1 TAB TABLET.DR PO SCH (10:27)
[2023-05-14] MEDS: metoprolol tartrate 50mg tablet PO SCH (10:29)
[2023-05-14] MEDS: atorvastatin 20mg tablet PO SCH (10:30)
[2023-05-14] MEDS: insulin Lispro (HumaLOG) vial - multi-dose SQ SCH (10:38)
[2023-05-14] MEDS: isosorbide mononitrate 30mg tab.SR.24H PO SCH (12:40)
[2023-05-14] MEDS: HYDROcodone/acetaminophen 10/325mg tab PO PRN (13:33)
[2023-05-14] MEDS: enoxaparin 40mg/0.4ml syringe SQ SCH (19:22)
[2023-05-14] MEDS: insulin glargine (Lantus) pen - multi-dose SQ SCH (22:17)
[2023-05-15 02:00] VITALS: BP 120/66; PULSE 78; RESP 14; TEMP 98.1; O2SAT 95
[2023-05-15 07:00] VITALS: BP 121/46; PULSE 76; RESP 16; O2SAT 100
[2023-05-15 07:50] LABS: BASOPHILS # (AUTO) 0.1 X10'3 (0-0.2); BASOPHILS % (AUTO) 0.9 % (0-1); EOSINOPHILS # (AUTO) 0.5 X10'3 (0-0.9); EOSINOPHILS % (AUTO) 7.1 % (0-6); HEMATOCRIT 34.6 % (35.0-45.0); HEMOGLOBIN 11.6 g/dl (12.0-16.0); LYMPHOCYTES # (AUTO) 1.8 X10'3 (1.1-4.8); LYMPHOCYTES % (AUTO) 23.5 % (21-51); MEAN CORPUSCULAR HEMOGLOBIN 28.4 PG (27.0-31.0); MEAN CORPUSCULAR HGB CONC 33.5 g/dL (33.0-36.5); MEAN CORPUSCULAR VOLUME 84.8 FL (78-98); MEAN PLATELET VOLUME 9.1 FL (7.4-10.4); MONOCYTES # (AUTO) 0.9 X10'3 (0-0.9); MONOCYTES % (AUTO) 11.3 % (2-12); NEUTROPHILS # (AUTO) 4.3 X10'3 (1.8-7.7); NEUTROPHILS % (AUTO) 57.2 % (42-75); PLATELET COUNT 84 X10'3 (140-440); RED BLOOD COUNT 4.07 X10'6 (4.20-5.60); WHITE BLOOD COUNT 7.5 X10'3 (4.5-11.0)
[2023-05-15 08:00] LABS: ALANINE AMINOTRANSFERASE 21 U/L (12-78); ALBUMIN 1.9 G/DL (3.4-5.0); ALBUMIN/GLOBULIN RATIO 0.5 (1.1-1.5); ALKALINE PHOSPHATASE 128 IU/L (46-116); ANION GAP 7 (8-16); ASPARTATE AMINO TRANSFERASE 34 U/L (10-37); BILIRUBIN,TOTAL 0.6 MG/DL (0.1-1.0); BLOOD UREA NITROGEN 21 MG/DL (7-18); BUN/CREATININE RATIO 31.3 (10.0-20.0); CALCIUM 8.5 MG/DL (8.5-10.1); CHLORIDE 104 MMOL/L (99-107); CREATININE 0.67 MG/DL (0.40-0.90); GLUCOSE 114 MG/DL (70-104); MAGNESIUM 2.1 MG/DL (1.5-2.4); PHOSPHORUS 3.7 MG/DL (2.3-4.5); POTASSIUM 3.7 MMOL/L (3.5-5.1); SODIUM 138 MMOL/L (135-145); TOTAL CARBON DIOXIDE 26.9 MMOL/L (24-32); TOTAL PROTEIN 5.8 G/DL (6.4-8.2); eCRCL 72 ML/MIN; eGFR 90 ML/MIN
[2023-05-15 08:35] LABS: BILIRUBIN,URINE NEGATIVE (Neg); CLARITY,URINE SLIGHTLY CLOUDY (Clear); COLOR,URINE YELLOW (Yellow); GLUCOSE, URINE NEGATIVE (Neg); KETONES,URINE NEGATIVE (Neg); LEUKOCYTE ESTERASE ,URINE NEGATIVE (Neg); NITRITES, URINE NEGATIVE (Neg); OCCULT BLOOD,URINE TRACE-INTACT (Neg); PH,URINE 5.5 (4.8-8.0); PROTEIN,URINE >=300 mg/dl (Neg); UROBILINOGEN,URINE 0.2 E.U/dL (0.2-1.0)
[2023-05-15 08:41] LABS: UA COLLECTION TYPE VOIDED
[2023-05-15 08:45] LABS: SQUAMOUS EPITHELIAL CELL,UR MODERATE /LPF (FEW)
[2023-05-15 08:46] LABS: BACTERIA,URINE FEW /HPF (Neg); RBC,URINE NONE SEEN /HPF (0-2); WBC,URINE 0-4 /HPF (0-4)
[2023-05-15 08:47] LABS: YEAST MODERATE /HPF (NEGATIVE)
[2023-05-15 09:18] LABS: URINE AMPHETAMINE SCREEN NEGATIVE (Neg); URINE BARBITUATE SCREEN NEGATIVE (Neg); URINE BENZODIAZEPINES SCREEN NEGATIVE (Neg); URINE CANNABINOID SCREEN NEGATIVE (Neg); URINE COCAINE SCREEN NEGATIVE (Neg); URINE METHADONE SCREEN NEGATIVE (Neg); URINE OPIATE SCREEN POSITIVE (Neg); URINE PHENCYCLIDINE SCREEN NEGATIVE (Neg)
[2023-05-15 11:41] VITALS: BP 106/56; PULSE 66; RESP 16; TEMP 97.8; O2SAT 96
[2023-05-15] MEDS ORDERED: ISOS30TA84 PO (13:27)
[2023-05-15] MEDS: CefTRIAXone 2gm/D5W 50ml BAG 50 ML IV SCH (14:17)
[2023-05-15] MEDS: vancomycin 1,750 MG in NS 350ml IV soln IV ONE (14:38)
[2023-05-15 18:00] VITALS: BP 112/52; PULSE 84; RESP 20; TEMP 98.7; O2SAT 94
[2023-05-15 20:00] VITALS: RESP 20; O2SAT 94
[2023-05-15] MEDS: metroNIDAZOLE 500mg tablet PO SCH (20:00)
[2023-05-16] VITALS: BP 101/41; PULSE 70; RESP 16; TEMP 98.4; O2SAT 96
[2023-05-16] MEDS: VANCOmycin 1250MG/NS 250ml Bag 250 ML IV SCH (02:41)
[2023-05-16 07:00] VITALS: BP 157/72; PULSE 84; RESP 16; TEMP 98.4; O2SAT 95
[2023-05-16 07:04] LABS: BASOPHILS % (AUTO) 0.7 % (0-1); EOSINOPHILS # (AUTO) 0.4 X10'3 (0-0.9); EOSINOPHILS % (AUTO) 5.7 % (0-6); HEMATOCRIT 34.4 % (35.0-45.0); HEMOGLOBIN 11.8 g/dl (12.0-16.0); LYMPHOCYTES # (AUTO) 0.8 X10'3 (1.1-4.8); LYMPHOCYTES % (AUTO) 12.9 % (21-51); MEAN CORPUSCULAR HEMOGLOBIN 28.7 PG (27.0-31.0); MEAN CORPUSCULAR HGB CONC 34.2 g/dL (33.0-36.5); MEAN PLATELET VOLUME 8.9 FL (7.4-10.4); MONOCYTES # (AUTO) 0.7 X10'3 (0-0.9); MONOCYTES % (AUTO) 10.4 % (2-12); NEUTROPHILS # (AUTO) 4.6 X10'3 (1.8-7.7); NEUTROPHILS % (AUTO) 70.3 % (42-75); PLATELET COUNT 86 X10'3 (140-440); WHITE BLOOD COUNT 6.5 X10'3 (4.5-11.0)
[2023-05-16 07:17] LABS: ALANINE AMINOTRANSFERASE 22 U/L (12-78); ALBUMIN 1.9 G/DL (3.4-5.0); ALBUMIN/GLOBULIN RATIO 0.5 (1.1-1.5); ALKALINE PHOSPHATASE 160 IU/L (46-116); ANION GAP 8 (8-16); ASPARTATE AMINO TRANSFERASE 46 U/L (10-37); BILIRUBIN,TOTAL 0.4 MG/DL (0.1-1.0); BLOOD UREA NITROGEN 22 MG/DL (7-18); BUN/CREATININE RATIO 33.8 (10.0-20.0); CALCIUM 8.4 MG/DL (8.5-10.1); CHLORIDE 102 MMOL/L (99-107); CREATININE 0.65 MG/DL (0.40-0.90); GLUCOSE 190 MG/DL (70-104); PHOSPHORUS 3.6 MG/DL (2.3-4.5); POTASSIUM 3.7 MMOL/L (3.5-5.1); SODIUM 134 MMOL/L (135-145); TOTAL CARBON DIOXIDE 24.4 MMOL/L (24-32); TOTAL PROTEIN 6.1 G/DL (6.4-8.2); eCRCL 75 ML/MIN; eGFR > 90 ML/MIN
[2023-05-16 08:00] VITALS: RESP 16; O2SAT 97
[2023-05-16 11:30] VITALS: BP 129/84; PULSE 78; RESP 20; TEMP 98; O2SAT 97
[2023-05-16 18:00] VITALS: BP 168/70; PULSE 95; RESP 18; TEMP 99.5; O2SAT 96
[2023-05-16 20:00] VITALS: RESP 18; O2SAT 96
[2023-05-16] MEDS: metoprolol tartrate 25mg tablet PO SCH (20:31)
[2023-05-17 00:30] VITALS: BP 140/75; PULSE 72; RESP 16; TEMP 98.7; O2SAT 93
[2023-05-17 00:45] VITALS: BP 140/75; PULSE 72; RESP 16; TEMP 98.7; O2SAT 93
[2023-05-17] MEDS: VANCOMYCIN LEVEL IV ONE (02:42)
[2023-05-17 07:00] VITALS: BP 146/71; PULSE 79; RESP 18; TEMP 98.1; O2SAT 95
[2023-05-17 08:00] VITALS: RESP 18; O2SAT 96
[2023-05-17 09:07] VITALS: BP_SYST 146; PULSE 79
== END 2023-05-17 09:14 | disposition home or self-care (01) | DRG 198 ==
LOC: ER 20:26 → ED HOLD 05-14 01:12 → PCU 3S 05-14 02:55
PROVIDERS: ADMIT Student in an Organized Health Care Education/Training Program; ATTEND Internal Medicine
DX: I25.119 Atherosclerotic heart disease of native coronary artery with unspecified angina pectoris (principal); E11.51 Type 2 diabetes mellitus with diabetic peripheral angiopathy without gangrene; E11.69 Type 2 diabetes mellitus with other specified complication; M84.471A Pathological fracture, right ankle, initial encounter for fracture; M86.671 Other chronic osteomyelitis, right ankle and foot; I50.9 Heart failure, unspecified; I11.0 Hypertensive heart disease with heart failure; J43.9 Emphysema, unspecified; G35 Multiple sclerosis; R71.0 Precipitous drop in hematocrit; F17.210 Nicotine dependence, cigarettes, uncomplicated; B18.2 Chronic viral hepatitis C; G89.29 Other chronic pain; I70.203 Unspecified atherosclerosis of native arteries of extremities, bilateral legs; Z96.641 Presence of right artificial hip joint; Z98.891 History of uterine scar from previous surgery; Z86.73 Personal history of transient ischemic attack (TIA), and cerebral infarction without residual deficits; Z79.02 Long term (current) use of antithrombotics/antiplatelets; Z88.0 Allergy status to penicillin; Z79.4 Long term (current) use of insulin; Z79.899 Other long term (current) drug therapy; Z79.82 Long term (current) use of aspirin; Z80.8 Family history of malignant neoplasm of other organs or systems; I25.2 Old myocardial infarction; Z91.199 Patient's noncompliance with other medical treatment and regimen due to unspecified reason; Z59.00 Homelessness unspecified
CPT/HCPCS: 36415; 71045; 73610; 73630; 80048; 80053; 80305; 80320; 81001; 82948; 83690; 83735; 84100; 84145; 84484; 85025; 87081; 93005; 97161; 97530; 99285; A6213; A6250; A6449; G0378; J0696; J1650; J2270; J3370; J7030; J7040

== ENCOUNTER 2023-06-02 14:29 | Emergency (ER) | payer MEDICAID ==
[~2023-06-02] VITALS: Ht 157.5 cm; Wt 58.1 kg
[~2023-06-02 14:29] MED LIST changes: +ISOS30TA84 PO
[2023-06-03 12:45] VITALS: BP 175/80; PULSE 77; RESP 18; TEMP 97.9; O2SAT 99
== END 2023-06-03 12:47 | disposition home or self-care (01) ==
LOC: ER 14:30
DX: S92.001D Unspecified fracture of right calcaneus, subsequent encounter for fracture with routine healing (principal); I11.0 Hypertensive heart disease with heart failure; I50.9 Heart failure, unspecified; E11.9 Type 2 diabetes mellitus without complications; J45.909 Unspecified asthma, uncomplicated; Z59.00 Homelessness unspecified; Z88.0 Allergy status to penicillin; Z86.73 Personal history of transient ischemic attack (TIA), and cerebral infarction without residual deficits; Z79.899 Other long term (current) drug therapy; X58.XXXD Exposure to other specified factors, subsequent encounter
CPT/HCPCS: 73630; 99285

== ENCOUNTER 2023-06-08 19:44 | Inpatient (IN) | payer MEDICAID ==
[~2023-06-08] VITALS: Ht 157.5 cm; Wt 72.0 kg
[2023-06-08] MEDS: insulin Lispro (HumaLOG) vial - multi-dose SQ ONE (03:00)
[2023-06-08] MEDS: INSULIN LISPRO 100 UNIT/ML INSULN.PEN MULTI-DOSE SQ ONE (03:00)
[2023-06-08] MEDS: normal saline 1000ML IV soln IVB ONE (20:30)
[2023-06-08 20:37] LABS: BILIRUBIN,URINE NEGATIVE (Neg); CLARITY,URINE SLIGHTLY CLOUDY (Clear); COLOR,URINE YELLOW (Yellow); GLUCOSE, URINE >=1000 mg/dl (Neg); KETONES,URINE NEGATIVE (Neg); LEUKOCYTE ESTERASE ,URINE NEGATIVE (Neg); NITRITES, URINE NEGATIVE (Neg); OCCULT BLOOD,URINE SMALL (Neg); PROTEIN,URINE 100 mg/dl (Neg); UROBILINOGEN,URINE 0.2 E.U/dL (0.2-1.0)
[2023-06-08 20:38] LABS: BASOPHILS % (AUTO) 0.9 % (0-1); EOSINOPHILS # (AUTO) 0.2 X10'3 (0-0.9); EOSINOPHILS % (AUTO) 3.2 % (0-6); HEMATOCRIT 42.2 % (35.0-45.0); HEMOGLOBIN 14.3 g/dl (12.0-16.0); LYMPHOCYTES # (AUTO) 1.6 X10'3 (1.1-4.8); LYMPHOCYTES % (AUTO) 27.9 % (21-51); MEAN CORPUSCULAR HEMOGLOBIN 28.3 PG (27.0-31.0); MEAN CORPUSCULAR HGB CONC 33.9 g/dL (33.0-36.5); MEAN CORPUSCULAR VOLUME 83.5 FL (78-98); MEAN PLATELET VOLUME 9.4 FL (7.4-10.4); MONOCYTES # (AUTO) 0.5 X10'3 (0-0.9); MONOCYTES % (AUTO) 9.5 % (2-12); NEUTROPHILS # (AUTO) 3.4 X10'3 (1.8-7.7); NEUTROPHILS % (AUTO) 58.5 % (42-75); PLATELET COUNT 94 X10'3 (140-440); RED BLOOD COUNT 5.06 X10'6 (4.20-5.60); RED CELL DISTRIBUTION WIDTH 16.1 % (11.5-14.5); WHITE BLOOD COUNT 5.8 X10'3 (4.5-11.0)
[2023-06-08 20:45] LABS: ACETONE NEGATIVE (NEGATIVE)
[2023-06-08 20:47] LABS: ALBUMIN 2.3 G/DL (3.4-5.0); ANION GAP 7 (8-16); BLOOD UREA NITROGEN 18 MG/DL (7-18); BUN/CREATININE RATIO 18.8 (10.0-20.0); CALCIUM 9.2 MG/DL (8.5-10.1); CHLORIDE 97 MMOL/L (99-107); CREATININE 0.96 MG/DL (0.40-0.90); MAGNESIUM 1.7 MG/DL (1.5-2.4); SODIUM 133 MMOL/L (135-145); TOTAL CARBON DIOXIDE 29.1 MMOL/L (24-32); eGFR 60 ML/MIN
[2023-06-08 20:48] LABS: URINE AMPHETAMINE SCREEN NEGATIVE (Neg); URINE BARBITUATE SCREEN NEGATIVE (Neg); URINE BENZODIAZEPINES SCREEN NEGATIVE (Neg); URINE CANNABINOID SCREEN NEGATIVE (Neg); URINE COCAINE SCREEN NEGATIVE (Neg); URINE METHADONE SCREEN NEGATIVE (Neg); URINE OPIATE SCREEN NEGATIVE (Neg); URINE PHENCYCLIDINE SCREEN NEGATIVE (Neg)
[2023-06-08 20:49] LABS: POTASSIUM 4.4 MMOL/L (3.5-5.1)
[2023-06-08 20:51] LABS: ETHANOL < 10 MG/DL (<10)
[2023-06-08 20:54] LABS: GLUCOSE 568 MG/DL (70-104)
[2023-06-08 21:03] LABS: UA COLLECTION TYPE NON-SPECIFIED
[2023-06-08 21:04] LABS: BACTERIA,URINE 1+ /HPF (Neg); MUCUS STRANDS NONE SEEN /LPF (Neg); SQUAMOUS EPITHELIAL CELL,UR MANY /LPF (FEW); WBC,URINE 0-4 /HPF (0-4)
[2023-06-08 21:07] LABS: YEAST FEW /HPF (NEGATIVE)
[2023-06-08] MEDS: levoFLOXACIN-Levaquin 750MG/D5 150 ML IV ONE (21:34)
[2023-06-08] MEDS: insulin regular, human 10 units/0.1 ml syringe IV ONE (21:35)
[2023-06-08] MEDS ORDERED: magnesium Cl slow-release 64mg tablet PO PRN (23:10)
[2023-06-08] MEDS ORDERED: mag hydrox/Alum hydrox/simeth 30ml oral suspension PO PRN (23:10)
[2023-06-08] MEDS ORDERED: ondansetron/PF 4mg/2ml inj IV PRN (23:10)
[2023-06-08] MEDS ORDERED: acetaminophen 325mg tablet PO PRN ×2 (23:10)
[2023-06-08] MEDS ORDERED: magnesium 2GM in 50ml NS 50 ML IV PRN (23:10)
[2023-06-08] MEDS ORDERED: potassium Cl 20 mEq SR tablet PO PRN ×2 (23:10)
[2023-06-08] MEDS ORDERED: magnesium 4gm in 100ml NS 100 ML IV PRN (23:10)
[2023-06-08] MEDS ORDERED: HYDROcodone/acetaminophen 10/325mg tab PO PRN (23:10)
[2023-06-08] MEDS ORDERED: potassium Cl 40MEQ/1/2NS 520ml 520 ML IV PRN (23:10)
[2023-06-08] MEDS ORDERED: magnesium hydroxide 30ml (MOM) UD suspension PO PRN (23:10)
[2023-06-08] MEDS ORDERED: HYDROcodone/acetaminophen 5mg/325mg tablet PO PRN (23:10)
[2023-06-08] MEDS ORDERED: Insulin Reg/NS 100units/100mL 100 ML IV SCH (23:15)
[2023-06-08] MEDS ORDERED: dextrose 50%-water 50ml dispensing syringe IV PRN (23:15)
[2023-06-09 02:02] VITALS: BP 132/74; PULSE 75; RESP 16; TEMP 98.5
[2023-06-09] MEDS ORDERED: DEXTROSE 15 GM of carb/4 tabs (each vial/BOTTLE has 4 tablets) PO PRN ×2 (02:55)
[2023-06-09] MEDS ORDERED: glucagon, human recombinant 1mg kit SUBCUT PRN (02:55)
[2023-06-09] MEDS ORDERED: dextrose 50%-water 50ml dispensing syringe IV PRN ×2 (02:55)
[2023-06-09] MEDS: insulin glargine (Lantus) pen - multi-dose SQ ONE (03:00)
[2023-06-09] MEDS: normal saline 1000ml 1,000 ML IV SCH (03:10)
[2023-06-09 03:36] VITALS: RESP 16; O2SAT 96
[2023-06-09 08:00] VITALS: BP 130/90; PULSE 86; RESP 16; O2SAT 96
[2023-06-09] MEDS: docusate sod 100mg capsule PO SCH (08:00)
[2023-06-09] MEDS: heparin, porcine 5000 units/ml vial SQ SCH (08:00)
[2023-06-09] MEDS: K and/or MAG REPLACEMENT MC SCH (08:00)
[2023-06-09 08:05] LABS: BASOPHILS # (AUTO) 0.1 X10'3 (0-0.2); EOSINOPHILS # (AUTO) 0.2 X10'3 (0-0.9); EOSINOPHILS % (AUTO) 3.7 % (0-6); HEMATOCRIT 36.5 % (35.0-45.0); HEMOGLOBIN 12.5 g/dl (12.0-16.0); LYMPHOCYTES # (AUTO) 1.5 X10'3 (1.1-4.8); LYMPHOCYTES % (AUTO) 23.6 % (21-51); MEAN CORPUSCULAR HEMOGLOBIN 28.4 PG (27.0-31.0); MEAN CORPUSCULAR HGB CONC 34.3 g/dL (33.0-36.5); MEAN CORPUSCULAR VOLUME 82.8 FL (78-98); MEAN PLATELET VOLUME 9.4 FL (7.4-10.4); MONOCYTES # (AUTO) 0.5 X10'3 (0-0.9); MONOCYTES % (AUTO) 8.6 % (2-12); NEUTROPHILS # (AUTO) 3.9 X10'3 (1.8-7.7); NEUTROPHILS % (AUTO) 63.1 % (42-75); PLATELET COUNT 81 X10'3 (140-440); RED BLOOD COUNT 4.41 X10'6 (4.20-5.60); RED CELL DISTRIBUTION WIDTH 15.9 % (11.5-14.5); WHITE BLOOD COUNT 6.1 X10'3 (4.5-11.0)
[2023-06-09 08:15] LABS: APTT 24 SECONDS (22-32); INR 1.1 INR; PROTHROMBIN TIME 11.4 SECONDS (9.0-12.0)
[2023-06-09 08:27] LABS: ALANINE AMINOTRANSFERASE 20 U/L (12-78); ALBUMIN 1.9 G/DL (3.4-5.0); ALBUMIN/GLOBULIN RATIO 0.5 (1.1-1.5); ALKALINE PHOSPHATASE 126 IU/L (46-116); ANION GAP 6 (8-16); ASPARTATE AMINO TRANSFERASE 37 U/L (10-37); BILIRUBIN,TOTAL 0.4 MG/DL (0.1-1.0); BLOOD UREA NITROGEN 18 MG/DL (7-18); CALCIUM 8.4 MG/DL (8.5-10.1); CHLORIDE 100 MMOL/L (99-107); GLUCOSE 284 MG/DL (70-104); MAGNESIUM 1.6 MG/DL (1.5-2.4); PHOSPHORUS 3.2 MG/DL (2.3-4.5); POTASSIUM 3.7 MMOL/L (3.5-5.1); SODIUM 132 MMOL/L (135-145); TOTAL CARBON DIOXIDE 26.5 MMOL/L (24-32); TOTAL PROTEIN 5.6 G/DL (6.4-8.2); eCRCL 81 ML/MIN; eGFR > 90 ML/MIN
[2023-06-09 08:32] VITALS: PULSE 77
[2023-06-09] MEDS: amLODIPine 5mg tablet PO SCH (08:32)
[2023-06-09] MEDS: insulin Lispro (HumaLOG) vial - multi-dose SQ SCH (08:34)
[2023-06-09] MEDS ORDERED: INSULIN LISPRO 100 UNIT/ML INSULN.PEN MULTI-DOSE SQ SCH (09:00)
[2023-06-09] MEDS ORDERED: insulin glargine (Lantus) pen - multi-dose SQ SCH (21:00)
== END 2023-06-09 11:03 | disposition home health service (06) | DRG 420 ==
LOC: ER 19:45 → ED HOLD 23:10 → UNDOADMIN 23:10 → EDBEDREQ 06-09 00:21 → ED HOLD 06-09 01:43 → PCU 3S 06-09 01:43 → ED HOLD 06-09 04:45 → UNDODISIN 06-09 11:03
PROVIDERS: ADMIT Surgery Surgical Critical Care; ATTEND Internal Medicine
DX: E10.65 Type 1 diabetes mellitus with hyperglycemia (principal); D69.6 Thrombocytopenia, unspecified; I50.9 Heart failure, unspecified; I11.0 Hypertensive heart disease with heart failure; E86.0 Dehydration; G35 Multiple sclerosis; M79.7 Fibromyalgia; J43.9 Emphysema, unspecified; S82.892A Other fracture of left lower leg, initial encounter for closed fracture; X58.XXXA Exposure to other specified factors, initial encounter; R82.90 Unspecified abnormal findings in urine; Y93.89 Activity, other specified; Y92.89 Other specified places as the place of occurrence of the external cause; Y99.8 Other external cause status; Z88.0 Allergy status to penicillin; Z79.82 Long term (current) use of aspirin; Z79.899 Other long term (current) drug therapy; Z79.01 Long term (current) use of anticoagulants; Z79.4 Long term (current) use of insulin; Z86.73 Personal history of transient ischemic attack (TIA), and cerebral infarction without residual deficits; Z98.891 History of uterine scar from previous surgery
CPT/HCPCS: 36415; 71045; 73590; 73600; 80048; 80053; 80305; 80320; 81001; 82009; 82140; 82948; 83605; 83735; 84100; 84145; 84484; 85025; 85610; 85730; 87040; 87081; 93005; A4615; G0378; J1815; J1956; J7030

== ENCOUNTER 2023-07-06 09:21 | Inpatient (IN) | payer MEDICAID ==
[~2023-07-06] VITALS: Ht 162.6 cm; Wt 80.0 kg
[2023-07-06 09:39] LABS: BASOPHILS # (AUTO) 0.1 X10'3 (0-0.2); BASOPHILS % (AUTO) 0.6 % (0-1); EOSINOPHILS % (AUTO) 0.4 % (0-6); HEMATOCRIT 46.7 % (35.0-45.0); HEMOGLOBIN 15.8 g/dl (12.0-16.0); LYMPHOCYTES % (AUTO) 9.3 % (21-51); MEAN CORPUSCULAR HEMOGLOBIN 28.8 PG (27.0-31.0); MEAN CORPUSCULAR HGB CONC 33.9 g/dL (33.0-36.5); MEAN CORPUSCULAR VOLUME 85.1 FL (78-98); MEAN PLATELET VOLUME 8.7 FL (7.4-10.4); MONOCYTES # (AUTO) 0.6 X10'3 (0-0.9); MONOCYTES % (AUTO) 5.5 % (2-12); NEUTROPHILS # (AUTO) 8.6 X10'3 (1.8-7.7); NEUTROPHILS % (AUTO) 84.2 % (42-75); PLATELET COUNT 87 X10'3 (140-440); RED BLOOD COUNT 5.49 X10'6 (4.20-5.60); RED CELL DISTRIBUTION WIDTH 15.8 % (11.5-14.5); WHITE BLOOD COUNT 10.2 X10'3 (4.5-11.0)
[2023-07-06] MEDS ORDERED: iohexol 350MG/ML 100ml bottle IV ONE (10:10)
[2023-07-06 10:15] LABS: ALBUMIN 2.4 G/DL (3.4-5.0); ANION GAP 9 (8-16); BLOOD UREA NITROGEN 20 MG/DL (7-18); CALCIUM 8.7 MG/DL (8.5-10.1); CHLORIDE 96 MMOL/L (99-107); CREATININE 0.74 MG/DL (0.40-0.90); GLUCOSE 293 MG/DL (70-104); MAGNESIUM 1.6 MG/DL (1.5-2.4); POTASSIUM 3.8 MMOL/L (3.5-5.1); PRO BRAIN NATRIURETIC PEPTIDE 2338 PG/ML (0-125); SODIUM 131 MMOL/L (135-145); TOTAL CARBON DIOXIDE 25.8 MMOL/L (24-32); eCRCL 72 ML/MIN; eGFR 81 ML/MIN
[2023-07-06] MEDS: metroNIDAZOLE-Flagyl 500mg/NS 100 ML IV STA (11:14)
[2023-07-06] MEDS: levoFLOXACIN-Levaquin 750MG/D5 150 ML IV STA (11:14)
[2023-07-06] MEDS: ondansetron/PF 4mg/2ml inj IV ONE (11:14)
[2023-07-06] MEDS: morphine 2 MG/ML inj. syringe IV PRN (11:18)
[2023-07-06] MEDS: ringers solution, lacted 1,000 ML IV ONE ×2 (11:26→18:37)
[2023-07-06] MEDS ORDERED: acetaminophen 1,000mg/100ml IV 100 ML IV SCH ×2 (12:45→14:00)
[2023-07-06] MEDS: acetaminophen 1,000mg/100ml IV 100 ML IV ONE (13:00)
[2023-07-06] MEDS ORDERED: GABA600T13 PO (14:07)
[2023-07-06] MEDS ORDERED: ACET325T55 PO (14:07)
[2023-07-06] MEDS ORDERED: ALBU10.7 IH (14:07)
[2023-07-06] MEDS ORDERED: ATOR40TA PO (14:07)
[2023-07-06] MEDS ORDERED: LIDOcaine 2% 10ml TOPICAL JELLY (Urojet) TP ONE (14:10)
[2023-07-06] MEDS ORDERED: potassium Cl 40MEQ/1/2NS 520ml 520 ML IV PRN (14:10)
[2023-07-06] MEDS ORDERED: magnesium hydroxide 30ml (MOM) UD suspension PO PRN (14:10)
[2023-07-06] MEDS ORDERED: magnesium 4gm in 100ml NS 100 ML IV PRN (14:10)
[2023-07-06] MEDS ORDERED: magnesium 2GM in 50ml NS 50 ML IV PRN (14:10)
[2023-07-06] MEDS ORDERED: acetaminophen 325mg tablet PO PRN (14:10)
[2023-07-06] MEDS ORDERED: potassium Cl 20 mEq SR tablet PO PRN (14:10)
[2023-07-06] MEDS ORDERED: CefTRIAXone 2gm/D5W 50ml BAG 50 ML IV SCH (14:15)
[2023-07-06] MEDS ORDERED: LidoCAINE 2% Topical Jelly 11mL syringe (UROJET) TOP ONE (14:20)
[2023-07-06] MEDS: LidoCAINE 2% Topical Jelly 11mL syringe (UROJET) TOP ONE (14:20)
[2023-07-06] MEDS ORDERED: CLOP-32 PO (14:22)
[2023-07-06] MEDS ORDERED: ASPI-1265 PO (14:22)
[2023-07-06] MEDS ORDERED: AMLO10TA13 PO (14:22)
[2023-07-06] MEDS ORDERED: METO25TA6 PO (14:22)
[2023-07-06 14:30] LABS: PHOSPHORUS 3.3 MG/DL (2.3-4.5)
[2023-07-06] MEDS: metoprolol tartrate 1mg/ml inj IV ONE (15:34)
[2023-07-06] MEDS: normal saline 1000ml 1,000 ML IV SCH (15:35)
[2023-07-06] MEDS: acetaminophen 325mg tablet PO ONE (16:19)
[2023-07-06] MEDS ORDERED: DEXTROSE 15 GM of carb/4 tabs (each vial/BOTTLE has 4 tablets) PO PRN ×2 (17:05)
[2023-07-06] MEDS ORDERED: glucagon, human recombinant 1mg kit SUBCUT PRN (17:05)
[2023-07-06] MEDS ORDERED: dextrose 50%-water 50ml dispensing syringe IV PRN ×2 (17:05)
[2023-07-06 18:00] VITALS: BP 133/64; PULSE 102; RESP 16; TEMP 97; O2SAT 92
[2023-07-06] MEDS: INSULIN LISPRO 100 UNIT/ML INSULN.PEN MULTI-DOSE SQ SCH ×2 (18:00→23:52)
[2023-07-06] MEDS: VANCOmycin 1250MG/NS 250ml Bag 250 ML IV SCH (18:43)
[2023-07-06] MEDS: metroNIDAZOLE-Flagyl 500mg/NS 100 ML IV SCH (19:00)
[2023-07-06] MEDS: budesonide 0.5mg/2ml UD nebule IH SCH (19:22)
[2023-07-06 19:23] VITALS: PULSE 95; RESP 18; O2SAT 95
[2023-07-06] MEDS: albuterol 2.5 MG/3 ML nebule NEB SCH (19:23)
[2023-07-06 19:33] VITALS: PULSE 92; RESP 18
[2023-07-06] MEDS: K and/or MAG REPLACEMENT MC SCH (20:00)
[2023-07-06] MEDS: heparin, porcine 5000 units/ml vial SQ SCH (20:00)
[2023-07-06 22:00] VITALS: BP 119/60; PULSE 103; RESP 18; TEMP 98; O2SAT 95
[2023-07-06] MEDS: metoprolol tartrate 25mg tablet PO SCH (22:19)
[2023-07-06] MEDS: cefepime 2g/NS 100ml ADVANTAGE 100 ML IV SCH (22:23)
[2023-07-06] MEDS: insulin glargine (Lantus) pen - multi-dose SQ SCH (23:54)
[2023-07-07] VITALS (12 sets, daily range): BP systolic 94–128; BP diastolic 52–64; PULSE 70–87; RESP 14–22; TEMP 97.6–98.4; O2SAT 90–96
[2023-07-07] MEDS ORDERED: HYDROmorphone/PF 0.2 MG/ML SYRINGE IV PRN (05:20)
[2023-07-07] MEDS ORDERED: HYDROcodone/acetaminophen 5mg/325mg tablet PO PRN (05:20)
[2023-07-07] MEDS: atorvastatin 20mg tablet PO SCH (08:28)
[2023-07-07] MEDS: nystatin 15 GM powder TP SCH (08:28)
[2023-07-07] MEDS: aspirin 81mg tab.chew PO SCH (08:28)
[2023-07-07] MEDS: clopidogrel 75mg tablet PO SCH (08:28)
[2023-07-07] MEDS: pantoprazole 40 MG vial IV SCH (08:29)
[2023-07-07 08:40] LABS: BASOPHILS % (AUTO) 0.5 % (0-1); EOSINOPHILS % (AUTO) 0 % (0-6); HEMATOCRIT 35.3 % (35.0-45.0); HEMOGLOBIN 11.8 g/dl (12.0-16.0); LYMPHOCYTES # (AUTO) 0.7 X10'3 (1.1-4.8); LYMPHOCYTES % (AUTO) 10.6 % (21-51); MEAN CORPUSCULAR HEMOGLOBIN 28.8 PG (27.0-31.0); MEAN CORPUSCULAR HGB CONC 33.3 g/dL (33.0-36.5); MEAN CORPUSCULAR VOLUME 86.6 FL (78-98); MONOCYTES # (AUTO) 0.6 X10'3 (0-0.9); MONOCYTES % (AUTO) 8.2 % (2-12); NEUTROPHILS # (AUTO) 5.7 X10'3 (1.8-7.7); NEUTROPHILS % (AUTO) 80.7 % (42-75); PLATELET COUNT 66 X10'3 (140-440); RED BLOOD COUNT 4.08 X10'6 (4.20-5.60); RED CELL DISTRIBUTION WIDTH 15.8 % (11.5-14.5); WHITE BLOOD COUNT 7.1 X10'3 (4.5-11.0)
[2023-07-07 08:56] LABS: BILIRUBIN,URINE MODERATE (Neg); COLOR,URINE YELLOW (Yellow); GLUCOSE, URINE 250 mg/dl (Neg); KETONES,URINE NEGATIVE (Neg); LEUKOCYTE ESTERASE ,URINE NEGATIVE (Neg); OCCULT BLOOD,URINE MODERATE (Neg); PROTEIN,URINE >=300 mg/dl (Neg)
[2023-07-07 08:58] LABS: URINE HCG NEGATIVE (NEG)
[2023-07-07 09:08] LABS: UA COLLECTION TYPE NON-SPECIFIED
[2023-07-07 09:11] LABS: NITRITES, URINE NEGATIVE (Neg)
[2023-07-07 09:15] LABS: CLARITY,URINE CLOUDY (Clear)
[2023-07-07 09:16] LABS: SQUAMOUS EPITHELIAL CELL,UR FEW /LPF (FEW)
[2023-07-07 09:17] LABS: BACTERIA,URINE 3+ /HPF (Neg)
[2023-07-07 09:23] LABS: URINE AMPHETAMINE SCREEN POSITIVE (Neg); URINE BARBITUATE SCREEN NEGATIVE (Neg); URINE BENZODIAZEPINES SCREEN NEGATIVE (Neg); URINE CANNABINOID SCREEN NEGATIVE (Neg); URINE COCAINE SCREEN NEGATIVE (Neg); URINE METHADONE SCREEN NEGATIVE (Neg); URINE OPIATE SCREEN POSITIVE (Neg); URINE PHENCYCLIDINE SCREEN NEGATIVE (Neg)
[2023-07-07] MEDS: potassium Cl 20 mEq SR tablet PO PRN (09:27)
[2023-07-07] MEDS: magnesium Cl slow-release 64mg tablet PO PRN (09:27)
[2023-07-07 09:32] LABS: CAL OXALATE CRYSTALS FEW /HPF (NEGATIVE)
[2023-07-07 11:09] LABS: ALANINE AMINOTRANSFERASE 58 U/L (12-78); ALBUMIN 1.6 G/DL (3.4-5.0); ALBUMIN/GLOBULIN RATIO 0.5 (1.1-1.5); ALKALINE PHOSPHATASE 100 IU/L (46-116); ANION GAP 6 (8-16); ASPARTATE AMINO TRANSFERASE 71 U/L (10-37); BILIRUBIN,TOTAL 0.8 MG/DL (0.1-1.0); BLOOD UREA NITROGEN 23 MG/DL (7-18); BUN/CREATININE RATIO 29.5 (10.0-20.0); CALCIUM 7.5 MG/DL (8.5-10.1); CHLORIDE 103 MMOL/L (99-107); CREATININE 0.78 MG/DL (0.40-0.90); GLUCOSE 199 MG/DL (70-104); MAGNESIUM 1.6 MG/DL (1.5-2.4); POTASSIUM 3.6 MMOL/L (3.5-5.1); SODIUM 130 MMOL/L (135-145); TOTAL CARBON DIOXIDE 21.1 MMOL/L (24-32); TOTAL PROTEIN 5.1 G/DL (6.4-8.2); eCRCL 68 ML/MIN; eGFR 76 ML/MIN
[2023-07-07] MEDS: HYDROcodone/acetaminophen 10/325mg tab PO PRN (17:21)
[2023-07-07] MEDS: insulin glargine (Lantus) pen - multi-dose SQ SCH (21:57)
[2023-07-08] VITALS (12 sets, daily range): BP systolic 130–155; BP diastolic 48–81; PULSE 69–81; RESP 15–20; TEMP 97–97.8; O2SAT 94–99
[2023-07-08] MEDS: VANCOMYCIN LEVEL IV ONE (02:30)
[2023-07-08 03:39] LABS: BASOPHILS # (AUTO) 0.1 X10'3 (0-0.2); BASOPHILS % (AUTO) 1.1 % (0-1); EOSINOPHILS # (AUTO) 0.2 X10'3 (0-0.9); EOSINOPHILS % (AUTO) 2.7 % (0-6); HEMATOCRIT 37.8 % (35.0-45.0); HEMOGLOBIN 12.6 g/dl (12.0-16.0); LYMPHOCYTES % (AUTO) 16.4 % (21-51); MEAN CORPUSCULAR HEMOGLOBIN 29.1 PG (27.0-31.0); MEAN CORPUSCULAR HGB CONC 33.2 g/dL (33.0-36.5); MEAN CORPUSCULAR VOLUME 87.5 FL (78-98); MEAN PLATELET VOLUME 9.4 FL (7.4-10.4); MONOCYTES # (AUTO) 0.7 X10'3 (0-0.9); MONOCYTES % (AUTO) 11.5 % (2-12); NEUTROPHILS # (AUTO) 4.2 X10'3 (1.8-7.7); NEUTROPHILS % (AUTO) 68.3 % (42-75); PLATELET COUNT 63 X10'3 (140-440); RED BLOOD COUNT 4.32 X10'6 (4.20-5.60); WHITE BLOOD COUNT 6.2 X10'3 (4.5-11.0)
[2023-07-08 03:51] LABS: ALANINE AMINOTRANSFERASE 62 U/L (12-78); ALBUMIN 1.6 G/DL (3.4-5.0); ALBUMIN/GLOBULIN RATIO 0.4 (1.1-1.5); ALKALINE PHOSPHATASE 113 IU/L (46-116); ANION GAP 7 (8-16); ASPARTATE AMINO TRANSFERASE 86 U/L (10-37); BILIRUBIN,TOTAL 0.4 MG/DL (0.1-1.0); BLOOD UREA NITROGEN 25 MG/DL (7-18); BUN/CREATININE RATIO 29.4 (10.0-20.0); CALCIUM 7.7 MG/DL (8.5-10.1); CHLORIDE 104 MMOL/L (99-107); CREATININE 0.85 MG/DL (0.40-0.90); GLUCOSE 206 MG/DL (70-104); POTASSIUM 3.7 MMOL/L (3.5-5.1); SODIUM 133 MMOL/L (135-145); TOTAL CARBON DIOXIDE 22.5 MMOL/L (24-32); TOTAL PROTEIN 5.4 G/DL (6.4-8.2); eCRCL 62 ML/MIN; eGFR 69 ML/MIN
[2023-07-08 03:52] LABS: MAGNESIUM 1.7 MG/DL (1.5-2.4); VANCOMYCIN,TROUGH 18.2 ug/mL (10.0-20.0)
[2023-07-08] MEDS: HYDROmorphone inj. 0.5 MG/0.5 ML DISP.SYRIN IV PRN (13:31)
[2023-07-08] MEDS: metroNIDAZOLE 500mg tablet PO SCH (16:03)
[2023-07-09] VITALS (14 sets, daily range): BP systolic 140–172; BP diastolic 72–87; PULSE 69–79; RESP 13–22; TEMP 97.3–98.5; O2SAT 94–98
[2023-07-09 06:56] LABS: EOSINOPHILS # (AUTO) 0.2 X10'3 (0-0.9); HEMOGLOBIN 13.1 g/dl (12.0-16.0); MEAN PLATELET VOLUME 9.4 FL (7.4-10.4); MONOCYTES # (AUTO) 0.5 X10'3 (0-0.9); NEUTROPHILS # (AUTO) 2.8 X10'3 (1.8-7.7); PLATELET COUNT 67 X10'3 (140-440); RED CELL DISTRIBUTION WIDTH 15.8 % (11.5-14.5); WHITE BLOOD COUNT 4.5 X10'3 (4.5-11.0)
[2023-07-09 06:58] LABS: BASOPHILS % (AUTO) 0.9 % (0-1); EOSINOPHILS % (AUTO) 4.1 % (0-6); HEMATOCRIT 39.2 % (35.0-45.0); LYMPHOCYTES % (AUTO) 22.4 % (21-51); MEAN CORPUSCULAR HEMOGLOBIN 28.8 PG (27.0-31.0); MEAN CORPUSCULAR HGB CONC 33.5 g/dL (33.0-36.5); MEAN CORPUSCULAR VOLUME 86.1 FL (78-98); MONOCYTES % (AUTO) 10.4 % (2-12); NEUTROPHILS % (AUTO) 62.2 % (42-75); RED BLOOD COUNT 4.55 X10'6 (4.20-5.60)
[2023-07-09 07:20] LABS: ALANINE AMINOTRANSFERASE 58 U/L (12-78); ALBUMIN 1.7 G/DL (3.4-5.0); ALBUMIN/GLOBULIN RATIO 0.4 (1.1-1.5); ALKALINE PHOSPHATASE 133 IU/L (46-116); ANION GAP 6 (8-16); ASPARTATE AMINO TRANSFERASE 96 U/L (10-37); BILIRUBIN,TOTAL 0.4 MG/DL (0.1-1.0); BLOOD UREA NITROGEN 22 MG/DL (7-18); BUN/CREATININE RATIO 32.4 (10.0-20.0); CHLORIDE 105 MMOL/L (99-107); CREATININE 0.68 MG/DL (0.40-0.90); GLUCOSE 219 MG/DL (70-104); MAGNESIUM 1.7 MG/DL (1.5-2.4); POTASSIUM 3.7 MMOL/L (3.5-5.1); SODIUM 133 MMOL/L (135-145); TOTAL CARBON DIOXIDE 21.8 MMOL/L (24-32); TOTAL PROTEIN 5.5 G/DL (6.4-8.2); eCRCL 78 ML/MIN; eGFR 89 ML/MIN
[2023-07-09] MEDS: pantoprazole 40mg Tablet.DR PO SCH (07:30)
[2023-07-09] MEDS: INSULIN LISPRO 100 UNIT/ML INSULN.PEN MULTI-DOSE SQ SCH (09:08)
[2023-07-09] MEDS ORDERED: INSULIN LISPRO 100 UNIT/ML INSULN.PEN MULTI-DOSE SQ SCH (12:00)
[2023-07-09] MEDS: insulin glargine (Lantus) pen - multi-dose SQ SCH (21:58)
[2023-07-10] VITALS (12 sets, daily range): BP systolic 135–151; BP diastolic 71–84; PULSE 68–80; RESP 16–20; TEMP 97–98.4; O2SAT 95–98
[2023-07-10 07:25] LABS: ALANINE AMINOTRANSFERASE 53 U/L (12-78); ALBUMIN 1.7 G/DL (3.4-5.0); ALBUMIN/GLOBULIN RATIO 0.4 (1.1-1.5); ALKALINE PHOSPHATASE 131 IU/L (46-116); ANION GAP 7 (8-16); ASPARTATE AMINO TRANSFERASE 96 U/L (10-37); BILIRUBIN,TOTAL 0.3 MG/DL (0.1-1.0); BLOOD UREA NITROGEN 20 MG/DL (7-18); CALCIUM 8.3 MG/DL (8.5-10.1); CHLORIDE 105 MMOL/L (99-107); CREATININE 0.54 MG/DL (0.40-0.90); GLUCOSE 106 MG/DL (70-104); MAGNESIUM 1.9 MG/DL (1.5-2.4); POTASSIUM 3.7 MMOL/L (3.5-5.1); SODIUM 134 MMOL/L (135-145); TOTAL CARBON DIOXIDE 21.7 MMOL/L (24-32); TOTAL PROTEIN 5.6 G/DL (6.4-8.2); eCRCL 98 ML/MIN; eGFR > 90 ML/MIN
[2023-07-10] MEDS: nystatin 15 GM powder TP SCH (08:57)
[2023-07-10 10:24] LABS: BASOPHILS # (AUTO) 0.1 X10'3 (0-0.2); BASOPHILS % (AUTO) 1.1 % (0-1); EOSINOPHILS # (AUTO) 0.2 X10'3 (0-0.9); EOSINOPHILS % (AUTO) 4.5 % (0-6); HEMATOCRIT 42.1 % (35.0-45.0); HEMOGLOBIN 13.7 g/dl (12.0-16.0); LYMPHOCYTES # (AUTO) 1.2 X10'3 (1.1-4.8); LYMPHOCYTES % (AUTO) 26.3 % (21-51); MEAN CORPUSCULAR HEMOGLOBIN 28.3 PG (27.0-31.0); MEAN CORPUSCULAR HGB CONC 32.5 g/dL (33.0-36.5); MEAN CORPUSCULAR VOLUME 87.1 FL (78-98); MEAN PLATELET VOLUME 9.5 FL (7.4-10.4); MONOCYTES # (AUTO) 0.4 X10'3 (0-0.9); MONOCYTES % (AUTO) 8.3 % (2-12); NEUTROPHILS # (AUTO) 2.7 X10'3 (1.8-7.7); NEUTROPHILS % (AUTO) 59.8 % (42-75); PLATELET COUNT 90 X10'3 (140-440); RED BLOOD COUNT 4.83 X10'6 (4.20-5.60); RED CELL DISTRIBUTION WIDTH 16.1 % (11.5-14.5); WHITE BLOOD COUNT 4.6 X10'3 (4.5-11.0)
[2023-07-10] MEDS: ondansetron/PF 4mg/2ml inj IV PRN (15:38)
[2023-07-11] VITALS (12 sets, daily range): BP systolic 111–174; BP diastolic 72–90; PULSE 65–87; RESP 16–20; TEMP 96.9–98; O2SAT 93–98
[2023-07-11 07:23] LABS: ALANINE AMINOTRANSFERASE 54 U/L (12-78); ALBUMIN 1.7 G/DL (3.4-5.0); ALBUMIN/GLOBULIN RATIO 0.4 (1.1-1.5); ALKALINE PHOSPHATASE 162 IU/L (46-116); ANION GAP 4 (8-16); ASPARTATE AMINO TRANSFERASE 103 U/L (10-37); BILIRUBIN,TOTAL 0.3 MG/DL (0.1-1.0); BLOOD UREA NITROGEN 23 MG/DL (7-18); BUN/CREATININE RATIO 38.3 (10.0-20.0); CALCIUM 8.4 MG/DL (8.5-10.1); CHLORIDE 105 MMOL/L (99-107); EOSINOPHILS # (AUTO) 0.2 X10'3 (0-0.9); EOSINOPHILS % (AUTO) 3.8 % (0-6); GLUCOSE 167 MG/DL (70-104); HEMATOCRIT 38.5 % (35.0-45.0); HEMOGLOBIN 12.8 g/dl (12.0-16.0); LYMPHOCYTES # (AUTO) 1.5 X10'3 (1.1-4.8); LYMPHOCYTES % (AUTO) 30.4 % (21-51); MEAN CORPUSCULAR HEMOGLOBIN 29.1 PG (27.0-31.0); MEAN CORPUSCULAR HGB CONC 33.2 g/dL (33.0-36.5); MEAN CORPUSCULAR VOLUME 87.7 FL (78-98); MONOCYTES # (AUTO) 0.6 X10'3 (0-0.9); MONOCYTES % (AUTO) 12.7 % (2-12); NEUTROPHILS # (AUTO) 2.6 X10'3 (1.8-7.7); NEUTROPHILS % (AUTO) 52.1 % (42-75); PLATELET COUNT 85 X10'3 (140-440); POTASSIUM 4.3 MMOL/L (3.5-5.1); RED CELL DISTRIBUTION WIDTH 15.3 % (11.5-14.5); SODIUM 135 MMOL/L (135-145); TOTAL CARBON DIOXIDE 25.9 MMOL/L (24-32); TOTAL PROTEIN 5.5 G/DL (6.4-8.2); WHITE BLOOD COUNT 4.9 X10'3 (4.5-11.0); eCRCL 88 ML/MIN; eGFR > 90 ML/MIN
[2023-07-11] MEDS: metroNIDAZOLE 500mg tablet PO SCH (16:23)
[2023-07-11] MEDS: temazepam 15mg capsule PO PRN (23:58)
[2023-07-12] VITALS (11 sets, daily range): BP systolic 145–173; BP diastolic 77–92; PULSE 67–87; RESP 16–22; TEMP 97.2–97.8; O2SAT 95–98
[2023-07-12 08:06] LABS: BASOPHILS # (AUTO) 0.1 X10'3 (0-0.2); BASOPHILS % (AUTO) 0.7 % (0-1); EOSINOPHILS # (AUTO) 0.2 X10'3 (0-0.9); EOSINOPHILS % (AUTO) 3.6 % (0-6); HEMATOCRIT 38.6 % (35.0-45.0); HEMOGLOBIN 12.8 g/dl (12.0-16.0); LYMPHOCYTES # (AUTO) 1.5 X10'3 (1.1-4.8); LYMPHOCYTES % (AUTO) 21.7 % (21-51); MEAN CORPUSCULAR HEMOGLOBIN 28.8 PG (27.0-31.0); MEAN CORPUSCULAR HGB CONC 33.3 g/dL (33.0-36.5); MEAN CORPUSCULAR VOLUME 86.7 FL (78-98); MEAN PLATELET VOLUME 9.3 FL (7.4-10.4); MONOCYTES # (AUTO) 0.6 X10'3 (0-0.9); NEUTROPHILS # (AUTO) 4.5 X10'3 (1.8-7.7); PLATELET COUNT 88 X10'3 (140-440); RED BLOOD COUNT 4.45 X10'6 (4.20-5.60); RED CELL DISTRIBUTION WIDTH 15.6 % (11.5-14.5)
[2023-07-12 08:29] LABS: PLATELET ESTIMATE DECREASED; TOTAL CELLS COUNTED 100
[2023-07-12 08:34] LABS: ALANINE AMINOTRANSFERASE 52 U/L (12-78); ALBUMIN 1.8 G/DL (3.4-5.0); ALBUMIN/GLOBULIN RATIO 0.5 (1.1-1.5); ALKALINE PHOSPHATASE 170 IU/L (46-116); ANION GAP 7 (8-16); ASPARTATE AMINO TRANSFERASE 97 U/L (10-37); BILIRUBIN,TOTAL 0.4 MG/DL (0.1-1.0); BLOOD UREA NITROGEN 21 MG/DL (7-18); BUN/CREATININE RATIO 31.8 (10.0-20.0); CALCIUM 8.8 MG/DL (8.5-10.1); CHLORIDE 103 MMOL/L (99-107); CREATININE 0.66 MG/DL (0.40-0.90); GLUCOSE 207 MG/DL (70-104); POTASSIUM 4.4 MMOL/L (3.5-5.1); SODIUM 135 MMOL/L (135-145); TOTAL CARBON DIOXIDE 24.9 MMOL/L (24-32); TOTAL PROTEIN 5.8 G/DL (6.4-8.2); eCRCL 80 ML/MIN; eGFR > 90 ML/MIN
[2023-07-12] MEDS: DAPTOmycin inj. 500 MG in normal saline 100ml IV soln 100 ML IV SCH (12:20)
[2023-07-12] MEDS: ertapenem sod inj 1 GM in normal saline 100ml IV soln 100 ML IV SCH (12:21)
[2023-07-13 07:16] VITALS: BP 138/77; PULSE 74; RESP 18; TEMP 97.4; O2SAT 95
[2023-07-13 08:00] VITALS: RESP 18; O2SAT 95
[2023-07-13 08:33] LABS: BASOPHILS % (AUTO) 0.8 % (0-1); EOSINOPHILS # (AUTO) 0.2 X10'3 (0-0.9); EOSINOPHILS % (AUTO) 3.6 % (0-6); HEMATOCRIT 37.3 % (35.0-45.0); HEMOGLOBIN 12.6 g/dl (12.0-16.0); LYMPHOCYTES # (AUTO) 1.8 X10'3 (1.1-4.8); LYMPHOCYTES % (AUTO) 27.4 % (21-51); MEAN CORPUSCULAR HGB CONC 33.6 g/dL (33.0-36.5); MEAN CORPUSCULAR VOLUME 86.2 FL (78-98); MEAN PLATELET VOLUME 9.4 FL (7.4-10.4); MONOCYTES # (AUTO) 0.6 X10'3 (0-0.9); MONOCYTES % (AUTO) 9.7 % (2-12); NEUTROPHILS # (AUTO) 3.8 X10'3 (1.8-7.7); NEUTROPHILS % (AUTO) 58.5 % (42-75); PLATELET COUNT 94 X10'3 (140-440); RED BLOOD COUNT 4.33 X10'6 (4.20-5.60); RED CELL DISTRIBUTION WIDTH 15.5 % (11.5-14.5); WHITE BLOOD COUNT 6.4 X10'3 (4.5-11.0)
[2023-07-13 08:40] VITALS: PULSE 85; RESP 18; O2SAT 96
[2023-07-13 08:50] VITALS: PULSE 85; RESP 20
[2023-07-13 09:09] LABS: ALANINE AMINOTRANSFERASE 47 U/L (12-78); ALBUMIN 1.8 G/DL (3.4-5.0); ALBUMIN/GLOBULIN RATIO 0.5 (1.1-1.5); ALKALINE PHOSPHATASE 155 IU/L (46-116); ANION GAP 3 (8-16); ASPARTATE AMINO TRANSFERASE 78 U/L (10-37); BILIRUBIN,TOTAL 0.3 MG/DL (0.1-1.0); BLOOD UREA NITROGEN 22 MG/DL (7-18); BUN/CREATININE RATIO 34.9 (10.0-20.0); CALCIUM 8.9 MG/DL (8.5-10.1); CHLORIDE 104 MMOL/L (99-107); CREATININE 0.63 MG/DL (0.40-0.90); GLUCOSE 138 MG/DL (70-104); POTASSIUM 4.1 MMOL/L (3.5-5.1); SODIUM 137 MMOL/L (135-145); TOTAL PROTEIN 5.5 G/DL (6.4-8.2); eCRCL 84 ML/MIN; eGFR > 90 ML/MIN
[2023-07-13 11:19] VITALS: BP 178/93; PULSE 86; RESP 18; TEMP 97.8; O2SAT 96
== END 2023-07-13 11:20 | disposition home or self-care (01) | DRG 721 ==
LOC: ER 09:22 → ED HOLD 14:14 → PCU 3S 19:03
PROVIDERS: ADMIT Internal Medicine; ATTEND Internal Medicine
PROC: B32T1ZZ Computerized Tomography (CT Scan) of Left Pulmonary Artery using Low Osmolar Contrast (ICD-10-PCS; 2023-07-06)
PROC: B3201ZZ Computerized Tomography (CT Scan) of Thoracic Aorta using Low Osmolar Contrast (ICD-10-PCS; 2023-07-06)
PROC: B32S1ZZ Computerized Tomography (CT Scan) of Right Pulmonary Artery using Low Osmolar Contrast (ICD-10-PCS; 2023-07-06)
PROC: 02HV33Z Insertion of Infusion Device into Superior Vena Cava, Percutaneous Approach (ICD-10-PCS; principal; 2023-07-12)
PROC: B548ZZA Ultrasonography of Superior Vena Cava, Guidance (ICD-10-PCS; 2023-07-12)
DX: T80.211A Bloodstream infection due to central venous catheter, initial encounter (principal); I21.4 Non-ST elevation (NSTEMI) myocardial infarction; G92.8 Other toxic encephalopathy; A41.9 Sepsis, unspecified organism; M86.8X7 Other osteomyelitis, ankle and foot; E11.51 Type 2 diabetes mellitus with diabetic peripheral angiopathy without gangrene; D69.59 Other secondary thrombocytopenia; E11.65 Type 2 diabetes mellitus with hyperglycemia; B19.20 Unspecified viral hepatitis C without hepatic coma; E86.0 Dehydration; I44.7 Left bundle-branch block, unspecified; E11.69 Type 2 diabetes mellitus with other specified complication; I50.32 Chronic diastolic (congestive) heart failure; I11.0 Hypertensive heart disease with heart failure; G35 Multiple sclerosis; J43.9 Emphysema, unspecified; F11.10 Opioid abuse, uncomplicated; F15.10 Other stimulant abuse, uncomplicated; F10.20 Alcohol dependence, uncomplicated; I08.1 Rheumatic disorders of both mitral and tricuspid valves; Y84.8 Other medical procedures as the cause of abnormal reaction of the patient, or of later complication, without mention of misadventure at the time of the procedure; T50.995A Adverse effect of other drugs, medicaments and biological substances, initial encounter; N39.0 Urinary tract infection, site not specified; R59.0 Localized enlarged lymph nodes; Z86.73 Personal history of transient ischemic attack (TIA), and cerebral infarction without residual deficits; Z59.00 Homelessness unspecified; Z88.0 Allergy status to penicillin; Z80.8 Family history of malignant neoplasm of other organs or systems; Z98.891 History of uterine scar from previous surgery; Y92.89 Other specified places as the place of occurrence of the external cause; Z79.899 Other long term (current) drug therapy; Z79.02 Long term (current) use of antithrombotics/antiplatelets
CPT/HCPCS: 36415; 71045; 71275; 72192; 76942; 80048; 80053; 80202; 80305; 81001; 81025; 82948; 83036; 83605; 83735; 83880; 84100; 84145; 84484; 85007; 85025; 87040; 87070; 87077; 87081; 87088; 87186; 93005; 93308; 93970; 94640; 94760; 99291; A5200; A6250; A6258; A6449; C1751; C1758; C9113; G0378; J0131; J0692; J0878; J1170; J1335; J1644; J1815; J1956; J2270; J2405; J3370; J3490; J7030; J7040; J7120; Q9967

== ENCOUNTER 2024-01-11 08:52 | Inpatient (IN) | payer MEDICAID ==
[~2024-01-11] VITALS: Ht 162.6 cm; Wt 88.6 kg
[~2024-01-11 08:52] MED LIST changes: +ACET325T55 PO; +ALBU10.7 IH; +ALBU18HF2 INH; +AMLO10TA13 PO; -ASPI-1071 PO; +ASPI-1265 PO; -ATOR20TA66 PO; +ATOR40TA PO; +CLOP-32 PO; -CLOP75TA34 PO; +GABA-1405 PO; -ISOS30TA84 PO; -LOP25T PO; +METO25TA6 PO; -NOR5T PO
[2024-01-11] MEDS ORDERED: fentaNYL/PF 50MCG/1 ML 2ML syringe ONE (08:57)
[2024-01-11] MEDS ORDERED: midazolam 1 mg/ML 2ml injection ONE (08:57)
[2024-01-11] MEDS ORDERED: LIDOcaine 1% 30ml preserv. free vial ONE (08:57)
[2024-01-11] MEDS ORDERED: iohexol 350 MG/ML 50ML vial IV ONE (08:58)
[2024-01-11] MEDS ORDERED: heparin 1,000unit/ml 10ml vial 0 ML ONE (08:58)
[2024-01-11] MEDS ORDERED: iohexol 350MG/ML 100ml bottle IV ONE ×2 (08:58→10:00)
[2024-01-11] MEDS ORDERED: tirofiban 12.5mg in NS 250mL 0 ML IV ONE (08:59)
[2024-01-11] MEDS ORDERED: heparin 25,000 UNIT/250ml bag 0 ML IV ONE (08:59)
[2024-01-11 09:11] LABS: BASOPHILS # (AUTO) 0.1 X10'3 (0-0.2); BASOPHILS % (AUTO) 0.6 % (0-1); EOSINOPHILS # (AUTO) 0.2 X10'3 (0-0.9); EOSINOPHILS % (AUTO) 1.1 % (0-6); HEMATOCRIT 47.2 % (35.0-45.0); HEMOGLOBIN 15.9 g/dl (12.0-16.0); LYMPHOCYTES # (AUTO) 1.5 X10'3 (1.1-4.8); LYMPHOCYTES % (AUTO) 7.8 % (21-51); MEAN CORPUSCULAR HEMOGLOBIN 29.1 PG (27.0-31.0); MEAN CORPUSCULAR HGB CONC 33.7 g/dL (33.0-36.5); MEAN CORPUSCULAR VOLUME 86.1 FL (78-98); MEAN PLATELET VOLUME 8.9 FL (7.4-10.4); MONOCYTES # (AUTO) 0.6 X10'3 (0-0.9); MONOCYTES % (AUTO) 3.4 % (2-12); NEUTROPHILS # (AUTO) 16.6 X10'3 (1.8-7.7); NEUTROPHILS % (AUTO) 87.1 % (42-75); PLATELET COUNT 114 X10'3 (140-440); RED BLOOD COUNT 5.48 X10'6 (4.20-5.60); RED CELL DISTRIBUTION WIDTH 12.7 % (11.5-14.5)
[2024-01-11] MEDS: nitroGLYCERIN 0.4mg SUBLingual tab SL PRN ×2 (09:23→09:25)
[2024-01-11] MEDS: HYDROmorphone 1 mg/ml syringe IV ONE ×2 (09:24→09:51)
[2024-01-11 09:26] LABS: ALANINE AMINOTRANSFERASE 18 U/L (12-78); ALBUMIN 2.3 G/DL (3.4-5.0); ALBUMIN/GLOBULIN RATIO 0.5 (1.1-1.5); ALKALINE PHOSPHATASE 93 IU/L (46-116); ANION GAP 6 (8-16); ASPARTATE AMINO TRANSFERASE 48 U/L (10-37); BILIRUBIN,TOTAL 0.9 MG/DL (0.1-1.0); BLOOD UREA NITROGEN 11 MG/DL (7-18); BUN/CREATININE RATIO 15.1 (10.0-20.0); CALCIUM 8.7 MG/DL (8.5-10.1); CHLORIDE 98 MMOL/L (99-107); CREATININE 0.73 MG/DL (0.40-0.90); GLUCOSE 273 MG/DL (70-104); POTASSIUM 3.8 MMOL/L (3.5-5.1); SODIUM 135 MMOL/L (135-145); TOTAL CARBON DIOXIDE 30.6 MMOL/L (24-32); eCRCL 73 ML/MIN; eGFR 82 ML/MIN
[2024-01-11 09:29] LABS: D-DIMER 2.52 MG/L FEU (0-0.50)
[2024-01-11 09:34] LABS: PRO BRAIN NATRIURETIC PEPTIDE 4014 PG/ML (0-125)
[2024-01-11] MEDS: metoprolol tartrate 1mg/ml inj IV SCH (09:55)
[2024-01-11] MEDS ORDERED: ondansetron/PF 4mg/2ml inj IV PRN (11:05)
[2024-01-11] MEDS ORDERED: magnesium sulf-water 4G/100mL 100 ML IV PRN (11:05)
[2024-01-11] MEDS ORDERED: magnesium sulf-water 2g/50mL 50 ML IV PRN (11:05)
[2024-01-11] MEDS ORDERED: acetaminophen 325mg tablet PO PRN (11:05)
[2024-01-11] MEDS ORDERED: potassium Cl 40MEQ/1/2NS 520ml 520 ML IV PRN (11:05)
[2024-01-11] MEDS ORDERED: magnesium hydroxide 30ml (MOM) UD suspension PO PRN (11:05)
[2024-01-11] MEDS ORDERED: potassium Cl 20 mEq SR tablet PO PRN (11:05)
[2024-01-11] MEDS ORDERED: morphine 2 MG/ML inj. syringe IV PRN (11:05)
[2024-01-11] MEDS ORDERED: magnesium Cl slow-release 64mg tablet PO PRN (11:05)
[2024-01-11] MEDS: aspirin 325mg tablet PO SCH (11:20)
[2024-01-11] MEDS ORDERED: dextrose 50%-water 50ml dispensing syringe IV PRN ×4 (11:25→17:10)
[2024-01-11] MEDS ORDERED: glucagon, human recombinant 1mg kit SUBCUT PRN ×2 (11:25→17:10)
[2024-01-11] MEDS ORDERED: DEXTROSE 15 GM of carb/4 tabs (each vial/BOTTLE has 4 tablets) PO PRN ×3 (11:25→17:10)
[2024-01-11 11:30] LABS: THYROID STIMULATING HORMONE 2.27 ulU/ml (0.34-4.50)
[2024-01-11] MEDS: magnesium sulf-water 2g/50mL 50 ML IV ONE (11:39)
[2024-01-11 11:45] LABS: HEMOGLOBIN A1C 10.9 % (4.5-6.2)
[2024-01-11] MEDS: INSULIN LISPRO 100 UNIT/ML INSULN.PEN MULTI-DOSE SQ SCH ×2 (13:04→20:01)
[2024-01-11] MEDS: atorvastatin 20mg tablet PO SCH (13:07)
[2024-01-11] MEDS ORDERED: NO HOME MEDS (13:13)
[2024-01-11 15:02] VITALS: BP 154/85; PULSE 112; RESP 16; TEMP 98.8; O2SAT 95
[2024-01-11 15:16] VITALS: RESP 15; O2SAT 95
[2024-01-11 16:20] VITALS: BP 109/40; PULSE 117; RESP 16; TEMP 98.2; O2SAT 96
[2024-01-11 18:00] VITALS: BP 147/69; PULSE 104; RESP 16; TEMP 99.2; O2SAT 90
[2024-01-11] MEDS: K and/or MAG REPLACEMENT MC SCH (19:16)
[2024-01-11] MEDS: docusate sod 100mg capsule PO SCH (19:48)
[2024-01-11] MEDS: metoprolol tartrate 50mg tablet PO SCH (19:50)
[2024-01-11] MEDS: HYDROcodone/acetaminophen 5mg/325mg tablet PO PRN (19:51)
[2024-01-11] MEDS: diatr meglu/diatrizoate 30ml oral sol.-(3 dose) bottle PO SCH (19:56)
[2024-01-11 22:00] VITALS: BP 98/63; PULSE 84; RESP 27; TEMP 98.3; O2SAT 98
[2024-01-12] VITALS (13 sets, daily range): BP systolic 86–151; BP diastolic 36–79; PULSE 60–80; RESP 13–24; TEMP 97.3–97.6; O2SAT 75–100
[2024-01-12 06:13] LABS: BASOPHILS % (AUTO) 0.2 % (0-1); EOSINOPHILS # (AUTO) 0.1 X10'3 (0-0.9); EOSINOPHILS % (AUTO) 0.3 % (0-6); HEMATOCRIT 42.7 % (35.0-45.0); HEMOGLOBIN 14.3 g/dl (12.0-16.0); LYMPHOCYTES # (AUTO) 1.5 X10'3 (1.1-4.8); LYMPHOCYTES % (AUTO) 7.4 % (21-51); MEAN CORPUSCULAR HEMOGLOBIN 29.3 PG (27.0-31.0); MEAN CORPUSCULAR HGB CONC 33.4 g/dL (33.0-36.5); MEAN CORPUSCULAR VOLUME 87.6 FL (78-98); MEAN PLATELET VOLUME 10.4 FL (7.4-10.4); MONOCYTES # (AUTO) 1.5 X10'3 (0-0.9); MONOCYTES % (AUTO) 7.3 % (2-12); NEUTROPHILS # (AUTO) 17.1 X10'3 (1.8-7.7); NEUTROPHILS % (AUTO) 84.8 % (42-75); PLATELET COUNT 102 X10'3 (140-440); RED BLOOD COUNT 4.87 X10'6 (4.20-5.60); WHITE BLOOD COUNT 20.1 X10'3 (4.5-11.0)
[2024-01-12 07:02] LABS: ALANINE AMINOTRANSFERASE 12 U/L (12-78); ALBUMIN 1.8 G/DL (3.4-5.0); ALBUMIN/GLOBULIN RATIO 0.4 (1.1-1.5); ALKALINE PHOSPHATASE 71 IU/L (46-116); ANION GAP 6 (8-16); ASPARTATE AMINO TRANSFERASE 30 U/L (10-37); BILIRUBIN,TOTAL 1.4 MG/DL (0.1-1.0); BLOOD UREA NITROGEN 16 MG/DL (7-18); BUN/CREATININE RATIO 17.2 (10.0-20.0); CALCIUM 8.4 MG/DL (8.5-10.1); CHLORIDE 99 MMOL/L (99-107); CHOL/HDL RATIO 2.8 (0.00-4.99); CHOLESTEROL 196 MG/DL (0-200); CREATININE 0.93 MG/DL (0.40-0.90); GLUCOSE 198 MG/DL (70-104); HDL CHOLESTEROL 69 MG/DL (35-60); LDL CHOLESTEROL 116 MG/DL (50-100); POTASSIUM 3.4 MMOL/L (3.5-5.1); SODIUM 135 MMOL/L (135-145); TOTAL CARBON DIOXIDE 30.4 MMOL/L (24-32); TRIGLYCERIDES 59 MG/DL (20-135); eCRCL 57 ML/MIN; eGFR 62 ML/MIN
[2024-01-12] MEDS: potassium Cl 20 mEq SR tablet PO PRN (08:55)
[2024-01-12] MEDS: morphine 2 MG/ML inj. syringe IV PRN (11:28)
[2024-01-12] MEDS: CefTRIAXone/D5W-Rocephin 1gm 50 ML IV SCH (15:28)
[2024-01-12] MEDS: azithromycin/NS 500mg/250ml 250 ML IV SCH (15:29)
[2024-01-12] MEDS: HYDROcodone/acetaminophen 10/325mg tab PO PRN (20:04)
[2024-01-12] MEDS: fentaNYL/PF 50MCG/1 ML 2ML syringe IV ONE (22:30)
[2024-01-12] MEDS: NORepinephrine 8mg/ 250ml NS 250 ML IV ONE (22:33)
[2024-01-12 22:55] LABS: BASOPHILS # (AUTO) 0.1 X10'3 (0-0.2); BASOPHILS % (AUTO) 0.3 % (0-1); EOSINOPHILS # (AUTO) 0.2 X10'3 (0-0.9); EOSINOPHILS % (AUTO) 0.7 % (0-6); HEMATOCRIT 42.9 % (35.0-45.0); HEMOGLOBIN 14.1 g/dl (12.0-16.0); LYMPHOCYTES # (AUTO) 2.6 X10'3 (1.1-4.8); LYMPHOCYTES % (AUTO) 10.9 % (21-51); MEAN CORPUSCULAR HEMOGLOBIN 29.1 PG (27.0-31.0); MEAN CORPUSCULAR HGB CONC 32.8 g/dL (33.0-36.5); MEAN CORPUSCULAR VOLUME 88.6 FL (78-98); MEAN PLATELET VOLUME 9.9 FL (7.4-10.4); MONOCYTES # (AUTO) 1.4 X10'3 (0-0.9); MONOCYTES % (AUTO) 5.9 % (2-12); NEUTROPHILS # (AUTO) 19.4 X10'3 (1.8-7.7); NEUTROPHILS % (AUTO) 82.2 % (42-75); PLATELET COUNT 110 X10'3 (140-440); RED BLOOD COUNT 4.84 X10'6 (4.20-5.60); RED CELL DISTRIBUTION WIDTH 13.6 % (11.5-14.5); WHITE BLOOD COUNT 23.6 X10'3 (4.5-11.0)
[2024-01-12 23:07] LABS: APTT 26 SECONDS (22-32); INR 1.2 INR; PROTHROMBIN TIME 12.2 SECONDS (9.0-12.0)
[2024-01-12 23:10] LABS: ALANINE AMINOTRANSFERASE 12 U/L (12-78); ALBUMIN 1.6 G/DL (3.4-5.0); ALBUMIN/GLOBULIN RATIO 0.4 (1.1-1.5); ALKALINE PHOSPHATASE 135 IU/L (46-116); ANION GAP 10 (8-16); ASPARTATE AMINO TRANSFERASE 49 U/L (10-37); BILIRUBIN,TOTAL 1.8 MG/DL (0.1-1.0); BLOOD UREA NITROGEN 24 MG/DL (7-18); BUN/CREATININE RATIO 17.5 (10.0-20.0); CALCIUM 7.9 MG/DL (8.5-10.1); CHLORIDE 98 MMOL/L (99-107); CREATININE 1.37 MG/DL (0.40-0.90); GLUCOSE 227 MG/DL (70-104); MAGNESIUM 3.3 MG/DL (1.5-2.4); SODIUM 135 MMOL/L (135-145); TOTAL PROTEIN 5.7 G/DL (6.4-8.2); eCRCL 39 ML/MIN; eGFR 40 ML/MIN
[2024-01-12 23:11] LABS: POTASSIUM 4.2 MMOL/L (3.5-5.1)
[2024-01-12 23:18] LABS: ABG BASE EXCESS -1.2 mmol/L (-2.0-3.0); ABG HCO3 24.2 mmol/L (21.0-28.0); ABG OXYGEN SATURATION 99.3 % (94.0-98.0); ABG PCO2 (T) 42.6 mmHg (32.0-45.0); ABG PH (T) 7.371 (7.350-7.450); ABG PO2 (T) 172.6 mmHg (83.0-108.0); ALLEN'S TEST POSITIVE; FCOHb 0.6 % (0.5-1.5); FHHb 0.7 % (0.0-5.0); FO2Hb 98.7 % (94.0-98.0); MODE VENT - AC; PATIENT TEMPERATURE 36.7; PEEP 5 cm H2O; RESPIRATORY RATE 16 b/min; TIDAL VOLUME 400 mL; TOTAL HEMOGLOBIN 16.1 G/dl (12.0-16.0)
[2024-01-12] MEDS ORDERED: magnesium hydroxide 30ml (MOM) UD suspension PO PRN (23:25)
[2024-01-12] MEDS ORDERED: acetaminophen 325mg tablet PO PRN ×2 (23:25)
[2024-01-12] MEDS ORDERED: morphine 4 MG/ML inj SYRINge IV PRN (23:25)
[2024-01-13] VITALS (36 sets, daily range): BP systolic 95–137; BP diastolic 43–96; PULSE 60–77; RESP 14–20; O2SAT 94–99
[2024-01-13] MEDS: amiodarone/D5 360MG/200ML BAG 200 ML IV SCH (00:01)
[2024-01-13] MEDS: propofol 1000mg/100ml bottle 100 ML IV SCH (00:02)
[2024-01-13] MEDS: NORepinephrine 8mg/ 250ml NS 250 ML IV SCH (00:03)
[2024-01-13] MEDS: FENTANYL 1000MCG/NS 100 ML BAG /PF IV SCH (00:03)
[2024-01-13] MEDS: insulin glargine (Lantus) pen - multi-dose SQ SCH (00:04)
[2024-01-13] MEDS: LidoCAINE 2% Topical Jelly 11mL syringe (UROJET) TOP ONE (00:05)
[2024-01-13] MEDS: metroNIDAZOLE-Flagyl 500mg/NS 100 ML IV SCH (01:11)
[2024-01-13] MEDS: normal saline 1000ml 1,000 ML IV ONE (01:55)
[2024-01-13] MEDS: normal saline 1000ml 1,000 ML IV SCH (01:56)
[2024-01-13] MEDS: heparin 25,000 UNIT/250ml bag 250 ML IV PRN ×2 (02:22→10:07)
[2024-01-13] MEDS: HEPARIN DRIP INITAL BOLUS --- DO NOT GIVE/ORDER MC ONE ×2 (02:24→02:25)
[2024-01-13 02:46] LABS: BASOPHILS % (AUTO) 0.2 % (0-1); EOSINOPHILS % (AUTO) 0 % (0-6); HEMOGLOBIN 13.9 g/dl (12.0-16.0); LYMPHOCYTES # (AUTO) 0.9 X10'3 (1.1-4.8); LYMPHOCYTES % (AUTO) 4.1 % (21-51); MEAN CORPUSCULAR HEMOGLOBIN 29.2 PG (27.0-31.0); MEAN CORPUSCULAR HGB CONC 33.1 g/dL (33.0-36.5); MEAN PLATELET VOLUME 9.8 FL (7.4-10.4); MONOCYTES # (AUTO) 1.4 X10'3 (0-0.9); MONOCYTES % (AUTO) 6.8 % (2-12); NEUTROPHILS % (AUTO) 88.9 % (42-75); PLATELET COUNT 111 X10'3 (140-440); RED BLOOD COUNT 4.77 X10'6 (4.20-5.60); RED CELL DISTRIBUTION WIDTH 13.3 % (11.5-14.5); WHITE BLOOD COUNT 21.4 X10'3 (4.5-11.0)
[2024-01-13 02:48] LABS: BILIRUBIN,URINE MODERATE (Neg); CLARITY,URINE CLOUDY (Clear); COLOR,URINE YELLOW (Yellow); GLUCOSE, URINE 100 mg/dl (Neg); KETONES,URINE NEGATIVE (Neg); LEUKOCYTE ESTERASE ,URINE NEGATIVE (Neg); NITRITES, URINE NEGATIVE (Neg); OCCULT BLOOD,URINE SMALL (Neg); PH,URINE 5.5 (4.8-8.0); PROTEIN,URINE >=300 mg/dl (Neg)
[2024-01-13] MEDS: MESSAGE TO NURSING IV ONE ×2 (02:51→17:50)
[2024-01-13 02:54] LABS: UA COLLECTION TYPE FOLEY CATH
[2024-01-13 02:55] LABS: BACTERIA,URINE 2+ /HPF (Neg); SQUAMOUS EPITHELIAL CELL,UR MODERATE /LPF (FEW); WBC,URINE 0-4 /HPF (0-4)
[2024-01-13 03:00] LABS: ALANINE AMINOTRANSFERASE 12 U/L (12-78); ALBUMIN 1.5 G/DL (3.4-5.0); ALBUMIN/GLOBULIN RATIO 0.4 (1.1-1.5); ALKALINE PHOSPHATASE 103 IU/L (46-116); ANION GAP 7 (8-16); ASPARTATE AMINO TRANSFERASE 55 U/L (10-37); BILIRUBIN,TOTAL 1.8 MG/DL (0.1-1.0); BLOOD UREA NITROGEN 28 MG/DL (7-18); BUN/CREATININE RATIO 21.7 (10.0-20.0); CALCIUM 7.8 MG/DL (8.5-10.1); CHLORIDE 99 MMOL/L (99-107); CREATININE 1.29 MG/DL (0.40-0.90); GLUCOSE 260 MG/DL (70-104); POTASSIUM 4.3 MMOL/L (3.5-5.1); SODIUM 134 MMOL/L (135-145); TOTAL PROTEIN 5.4 G/DL (6.4-8.2); eCRCL 41 ML/MIN; eGFR 42 ML/MIN
[2024-01-13 03:03] LABS: MAGNESIUM 2.7 MG/DL (1.5-2.4)
[2024-01-13 03:07] LABS: URINE AMPHETAMINE SCREEN POSITIVE (Neg); URINE BARBITUATE SCREEN NEGATIVE (Neg); URINE BENZODIAZEPINES SCREEN NEGATIVE (Neg); URINE CANNABINOID SCREEN NEGATIVE (Neg); URINE COCAINE SCREEN NEGATIVE (Neg); URINE METHADONE SCREEN NEGATIVE (Neg); URINE OPIATE SCREEN POSITIVE (Neg); URINE PHENCYCLIDINE SCREEN NEGATIVE (Neg)
[2024-01-13] MEDS: INSULIN LISPRO 100 UNIT/ML INSULN.PEN MULTI-DOSE SQ ONE (03:07)
[2024-01-13 03:36] LABS: ABG BASE EXCESS -1.6 mmol/L (-2.0-3.0); ABG HCO3 22.4 mmol/L (21.0-28.0); ABG OXYGEN SATURATION 99.6 % (94.0-98.0); ABG PCO2 (T) 33.9 mmHg (32.0-45.0); ABG PH (T) 7.432 (7.350-7.450); ABG PO2 (T) 196.5 mmHg (83.0-108.0); ALLEN'S TEST POSITIVE; FCOHb 0.7 % (0.5-1.5); FHHb 0.4 % (0.0-5.0); FMetHb 0.3 % (0.0-1.5); FO2Hb 98.6 % (94.0-98.0); MODE VENT - AC; PATIENT TEMPERATURE 35.7; PEEP 5 cm H2O; RESPIRATORY RATE 16 b/min; TIDAL VOLUME 400 mL; TOTAL HEMOGLOBIN 14.6 G/dl (12.0-16.0)
[2024-01-13] MEDS: losartan 50mg tablet PO SCH (07:41)
[2024-01-13] MEDS: cefepime 2g/NS 100ml ADVANTAGE 100 ML IV SCH (08:43)
[2024-01-13] MEDS: INSULIN LISPRO 100 UNIT/ML INSULN.PEN MULTI-DOSE SQ SCH (08:50)
[2024-01-13 09:18] LABS: INR 1.2 INR; PROTHROMBIN TIME 12.3 SECONDS (9.0-12.0)
[2024-01-13] MEDS: heparin 10,000 units/1 ML INJ IV PRN (09:59)
[2024-01-13] MEDS: VANCOMYCIN LEVEL IV ONE (10:12)
[2024-01-13] MEDS: ringers solution, lacted 1,000 ML IV ONE ×2 (17:50→18:47)
[2024-01-14] VITALS (32 sets, daily range): BP systolic 92–137; BP diastolic 40–89; PULSE 61–75; RESP 13–31; O2SAT 87–98
[2024-01-14 00:23] LABS: BASOPHILS # (AUTO) 0.1 X10'3 (0-0.2); BASOPHILS % (AUTO) 0.5 % (0-1); EOSINOPHILS # (AUTO) 0.1 X10'3 (0-0.9); EOSINOPHILS % (AUTO) 1.2 % (0-6); HEMATOCRIT 36.1 % (35.0-45.0); HEMOGLOBIN 12.1 g/dl (12.0-16.0); LYMPHOCYTES # (AUTO) 1.5 X10'3 (1.1-4.8); LYMPHOCYTES % (AUTO) 13.1 % (21-51); MEAN CORPUSCULAR HGB CONC 33.5 g/dL (33.0-36.5); MEAN CORPUSCULAR VOLUME 86.6 FL (78-98); MEAN PLATELET VOLUME 9.8 FL (7.4-10.4); MONOCYTES # (AUTO) 0.7 X10'3 (0-0.9); MONOCYTES % (AUTO) 6.7 % (2-12); NEUTROPHILS # (AUTO) 8.8 X10'3 (1.8-7.7); NEUTROPHILS % (AUTO) 78.5 % (42-75); PLATELET COUNT 82 X10'3 (140-440); RED BLOOD COUNT 4.17 X10'6 (4.20-5.60); RED CELL DISTRIBUTION WIDTH 13.4 % (11.5-14.5); WHITE BLOOD COUNT 11.2 X10'3 (4.5-11.0)
[2024-01-14 00:32] LABS: ALANINE AMINOTRANSFERASE 12 U/L (12-78); ALBUMIN 1.4 G/DL (3.4-5.0); ALBUMIN/GLOBULIN RATIO 0.4 (1.1-1.5); ALKALINE PHOSPHATASE 79 IU/L (46-116); ANION GAP 9 (8-16); ASPARTATE AMINO TRANSFERASE 32 U/L (10-37); BILIRUBIN,TOTAL 0.7 MG/DL (0.1-1.0); BLOOD UREA NITROGEN 30 MG/DL (7-18); BUN/CREATININE RATIO 27.5 (10.0-20.0); CHLORIDE 102 MMOL/L (99-107); CREATININE 1.09 MG/DL (0.40-0.90); GLUCOSE 182 MG/DL (70-104); MAGNESIUM 2.5 MG/DL (1.5-2.4); POTASSIUM 3.4 MMOL/L (3.5-5.1); SODIUM 137 MMOL/L (135-145); TOTAL PROTEIN 5.2 G/DL (6.4-8.2); eCRCL 49 ML/MIN; eGFR 52 ML/MIN
[2024-01-14] MEDS: potassium Cl 40MEQ/270ML bag 270 ML IV PRN (01:19)
[2024-01-14] MEDS: MESSAGE TO NURSING IV ONE ×4 (01:19→18:25)
[2024-01-14] MEDS: CEFEPIME 2gm in D5W 50mL 50 ML IV SCH (07:56)
[2024-01-14] MEDS: furosemide 10 MG/1 ML 10ml inj IV ONE ×2 (08:23→13:52)
[2024-01-14] MEDS: ondansetron/PF 4mg/2ml inj IV PRN (12:53)
[2024-01-14 16:34] LABS: ALBUMIN 1.5 G/DL (3.4-5.0); ANION GAP 8 (8-16); BLOOD UREA NITROGEN 29 MG/DL (7-18); BUN/CREATININE RATIO 27.4 (10.0-20.0); CALCIUM 7.9 MG/DL (8.5-10.1); CHLORIDE 102 MMOL/L (99-107); CREATININE 1.06 MG/DL (0.40-0.90); GLUCOSE 228 MG/DL (70-104); POTASSIUM 3.9 MMOL/L (3.5-5.1); SODIUM 135 MMOL/L (135-145); TOTAL CARBON DIOXIDE 24.9 MMOL/L (24-32); eCRCL 50 ML/MIN; eGFR 53 ML/MIN
[2024-01-14] MEDS: INSULIN LISPRO 100 UNIT/ML INSULN.PEN MULTI-DOSE SQ SCH (17:07)
[2024-01-15] VITALS (26 sets, daily range): BP systolic 101–155; BP diastolic 43–75; PULSE 59–78; RESP 11–26; O2SAT 89–98
[2024-01-15 00:45] LABS: BASOPHILS % (AUTO) 0.5 % (0-1); EOSINOPHILS # (AUTO) 0.1 X10'3 (0-0.9); EOSINOPHILS % (AUTO) 0.6 % (0-6); HEMATOCRIT 35.6 % (35.0-45.0); LYMPHOCYTES # (AUTO) 1.2 X10'3 (1.1-4.8); LYMPHOCYTES % (AUTO) 12.7 % (21-51); MEAN CORPUSCULAR HEMOGLOBIN 29.6 PG (27.0-31.0); MEAN CORPUSCULAR HGB CONC 33.7 g/dL (33.0-36.5); MEAN CORPUSCULAR VOLUME 87.9 FL (78-98); MEAN PLATELET VOLUME 10.5 FL (7.4-10.4); MONOCYTES # (AUTO) 0.9 X10'3 (0-0.9); MONOCYTES % (AUTO) 9.1 % (2-12); NEUTROPHILS # (AUTO) 7.3 X10'3 (1.8-7.7); NEUTROPHILS % (AUTO) 77.1 % (42-75); PLATELET COUNT 102 X10'3 (140-440); RED BLOOD COUNT 4.05 X10'6 (4.20-5.60); RED CELL DISTRIBUTION WIDTH 13.4 % (11.5-14.5); WHITE BLOOD COUNT 9.4 X10'3 (4.5-11.0)
[2024-01-15 00:55] LABS: ALANINE AMINOTRANSFERASE 8 U/L (12-78); ALBUMIN 1.5 G/DL (3.4-5.0); ALBUMIN/GLOBULIN RATIO 0.4 (1.1-1.5); ALKALINE PHOSPHATASE 82 IU/L (46-116); ANION GAP 5 (8-16); ASPARTATE AMINO TRANSFERASE 28 U/L (10-37); BILIRUBIN,TOTAL 0.6 MG/DL (0.1-1.0); BLOOD UREA NITROGEN 29 MG/DL (7-18); BUN/CREATININE RATIO 25.4 (10.0-20.0); CALCIUM 7.6 MG/DL (8.5-10.1); CHLORIDE 101 MMOL/L (99-107); CREATININE 1.14 MG/DL (0.40-0.90); GLUCOSE 185 MG/DL (70-104); MAGNESIUM 2.1 MG/DL (1.5-2.4); POTASSIUM 3.5 MMOL/L (3.5-5.1); SODIUM 134 MMOL/L (135-145); TOTAL CARBON DIOXIDE 28.5 MMOL/L (24-32); TOTAL PROTEIN 5.5 G/DL (6.4-8.2); eCRCL 46 ML/MIN; eGFR 49 ML/MIN
[2024-01-15] MEDS: MESSAGE TO NURSING IV ONE ×2 (02:06→06:40)
[2024-01-15] MEDS: furosemide 10 MG/1 ML 10ml inj IV ONE (14:10)
[2024-01-15] MEDS: heparin, porcine 5000 units/ml vial SQ SCH (15:20)
[2024-01-15] MEDS: lactose-reduced food (Ensure Enlive) - 237ml bottle PO SCH (18:07)
[2024-01-16] VITALS (26 sets, daily range): BP systolic 96–158; BP diastolic 51–83; PULSE 56–68; RESP 12–28; O2SAT 92–97
[2024-01-16 02:16] LABS: BASOPHILS # (AUTO) 0.1 X10'3 (0-0.2); BASOPHILS % (AUTO) 0.5 % (0-1); EOSINOPHILS # (AUTO) 0.1 X10'3 (0-0.9); EOSINOPHILS % (AUTO) 0.9 % (0-6); HEMATOCRIT 37.4 % (35.0-45.0); HEMOGLOBIN 12.5 g/dl (12.0-16.0); LYMPHOCYTES # (AUTO) 1.1 X10'3 (1.1-4.8); LYMPHOCYTES % (AUTO) 11.2 % (21-51); MEAN CORPUSCULAR HEMOGLOBIN 29.5 PG (27.0-31.0); MEAN CORPUSCULAR HGB CONC 33.5 g/dL (33.0-36.5); MEAN CORPUSCULAR VOLUME 88.1 FL (78-98); MEAN PLATELET VOLUME 10.3 FL (7.4-10.4); MONOCYTES % (AUTO) 10.2 % (2-12); NEUTROPHILS # (AUTO) 7.4 X10'3 (1.8-7.7); NEUTROPHILS % (AUTO) 77.2 % (42-75); PLATELET COUNT 135 X10'3 (140-440); RED BLOOD COUNT 4.24 X10'6 (4.20-5.60); RED CELL DISTRIBUTION WIDTH 13.5 % (11.5-14.5); WHITE BLOOD COUNT 9.5 X10'3 (4.5-11.0)
[2024-01-16 02:23] LABS: ALANINE AMINOTRANSFERASE 8 U/L (12-78); ALBUMIN 1.6 G/DL (3.4-5.0); ALBUMIN/GLOBULIN RATIO 0.4 (1.1-1.5); ALKALINE PHOSPHATASE 92 IU/L (46-116); ANION GAP 4 (8-16); ASPARTATE AMINO TRANSFERASE 25 U/L (10-37); BILIRUBIN,TOTAL 0.5 MG/DL (0.1-1.0); BLOOD UREA NITROGEN 32 MG/DL (7-18); BUN/CREATININE RATIO 26.9 (10.0-20.0); CALCIUM 7.9 MG/DL (8.5-10.1); CHLORIDE 100 MMOL/L (99-107); CREATININE 1.19 MG/DL (0.40-0.90); GLUCOSE 208 MG/DL (70-104); POTASSIUM 3.7 MMOL/L (3.5-5.1); SODIUM 133 MMOL/L (135-145); TOTAL CARBON DIOXIDE 29.5 MMOL/L (24-32); TOTAL PROTEIN 5.8 G/DL (6.4-8.2); eCRCL 45 ML/MIN; eGFR 47 ML/MIN
[2024-01-16] MEDS: CEFEPIME 2gm in D5W 50mL 50 ML IV SCH (07:20)
[2024-01-16] MEDS: morphine 2 MG/ML inj. syringe IV PRN (07:26)
[2024-01-16] MEDS: proCHLORperazine 10 MG/2 ml inj IV PRN (08:41)
[2024-01-16] MEDS: INSULIN LISPRO 100 UNIT/ML INSULN.PEN MULTI-DOSE SQ SCH (12:00)
[2024-01-17] VITALS (24 sets, daily range): BP systolic 95–158; BP diastolic 46–77; PULSE 58–96; RESP 16–27; TEMP 97.4; O2SAT 88–98
[2024-01-17 03:04] LABS: BASOPHILS # (AUTO) 0.1 X10'3 (0-0.2); BASOPHILS % (AUTO) 0.7 % (0-1); EOSINOPHILS # (AUTO) 0.2 X10'3 (0-0.9); EOSINOPHILS % (AUTO) 1.4 % (0-6); HEMATOCRIT 36.6 % (35.0-45.0); HEMOGLOBIN 12.1 g/dl (12.0-16.0); LYMPHOCYTES # (AUTO) 1.2 X10'3 (1.1-4.8); LYMPHOCYTES % (AUTO) 10.9 % (21-51); MEAN CORPUSCULAR HEMOGLOBIN 29.3 PG (27.0-31.0); MEAN CORPUSCULAR HGB CONC 33.2 g/dL (33.0-36.5); MEAN CORPUSCULAR VOLUME 88.2 FL (78-98); MEAN PLATELET VOLUME 10.6 FL (7.4-10.4); MONOCYTES # (AUTO) 1.2 X10'3 (0-0.9); MONOCYTES % (AUTO) 10.4 % (2-12); NEUTROPHILS # (AUTO) 8.7 X10'3 (1.8-7.7); NEUTROPHILS % (AUTO) 76.6 % (42-75); PLATELET COUNT 144 X10'3 (140-440); RED BLOOD COUNT 4.15 X10'6 (4.20-5.60); RED CELL DISTRIBUTION WIDTH 13.7 % (11.5-14.5); WHITE BLOOD COUNT 11.4 X10'3 (4.5-11.0)
[2024-01-17 03:23] LABS: ALANINE AMINOTRANSFERASE 8 U/L (12-78); ALBUMIN 1.7 G/DL (3.4-5.0); ALBUMIN/GLOBULIN RATIO 0.4 (1.1-1.5); ALKALINE PHOSPHATASE 96 IU/L (46-116); ANION GAP 4 (8-16); ASPARTATE AMINO TRANSFERASE 19 U/L (10-37); BILIRUBIN,TOTAL 0.4 MG/DL (0.1-1.0); BLOOD UREA NITROGEN 38 MG/DL (7-18); BUN/CREATININE RATIO 26.6 (10.0-20.0); CHLORIDE 100 MMOL/L (99-107); CREATININE 1.43 MG/DL (0.40-0.90); GLUCOSE 192 MG/DL (70-104); MAGNESIUM 2.1 MG/DL (1.5-2.4); PHOSPHORUS 2.8 MG/DL (2.3-4.5); POTASSIUM 4.2 MMOL/L (3.5-5.1); SODIUM 133 MMOL/L (135-145); TOTAL CARBON DIOXIDE 28.8 MMOL/L (24-32); TOTAL PROTEIN 5.8 G/DL (6.4-8.2); eCRCL 37 ML/MIN; eGFR 38 ML/MIN
[2024-01-17] MEDS: amiodarone 200mg tablet PO SCH (08:19)
[2024-01-17] MEDS ORDERED: LIDOcaine 1% 30ml preserv. free vial ONE (12:13)
[2024-01-17] MEDS: insulin glargine (Lantus) pen - multi-dose SQ SCH (21:04)
[2024-01-18] VITALS (10 sets, daily range): BP systolic 125–151; BP diastolic 48–76; PULSE 64–86; RESP 16–25; TEMP 96.7–98.9; O2SAT 92–99
[2024-01-18] MEDS: guaiFENesin ER 600mg tablet PO SCH (01:31)
[2024-01-18 07:09] LABS: BASOPHILS # (AUTO) 0.1 X10'3 (0-0.2); BASOPHILS % (AUTO) 0.7 % (0-1); EOSINOPHILS # (AUTO) 0.3 X10'3 (0-0.9); EOSINOPHILS % (AUTO) 2.7 % (0-6); HEMATOCRIT 38.8 % (35.0-45.0); HEMOGLOBIN 12.8 g/dl (12.0-16.0); LYMPHOCYTES # (AUTO) 1.4 X10'3 (1.1-4.8); LYMPHOCYTES % (AUTO) 11.4 % (21-51); MEAN CORPUSCULAR HEMOGLOBIN 28.9 PG (27.0-31.0); MEAN CORPUSCULAR HGB CONC 33.1 g/dL (33.0-36.5); MEAN CORPUSCULAR VOLUME 87.1 FL (78-98); MEAN PLATELET VOLUME 9.5 FL (7.4-10.4); MONOCYTES # (AUTO) 1.4 X10'3 (0-0.9); NEUTROPHILS # (AUTO) 8.7 X10'3 (1.8-7.7); NEUTROPHILS % (AUTO) 73.2 % (42-75); PLATELET COUNT 150 X10'3 (140-440); RED BLOOD COUNT 4.45 X10'6 (4.20-5.60); RED CELL DISTRIBUTION WIDTH 13.4 % (11.5-14.5); WHITE BLOOD COUNT 11.9 X10'3 (4.5-11.0)
[2024-01-18 07:34] LABS: ALANINE AMINOTRANSFERASE 8 U/L (12-78); ALBUMIN 1.9 G/DL (3.4-5.0); ALBUMIN/GLOBULIN RATIO 0.4 (1.1-1.5); ALKALINE PHOSPHATASE 108 IU/L (46-116); ANION GAP 5 (8-16); ASPARTATE AMINO TRANSFERASE 22 U/L (10-37); BILIRUBIN,TOTAL 0.4 MG/DL (0.1-1.0); BLOOD UREA NITROGEN 38 MG/DL (7-18); BUN/CREATININE RATIO 32.5 (10.0-20.0); CALCIUM 8.5 MG/DL (8.5-10.1); CHLORIDE 103 MMOL/L (99-107); CREATININE 1.17 MG/DL (0.40-0.90); GLUCOSE 98 MG/DL (70-104); MAGNESIUM 2.2 MG/DL (1.5-2.4); PHOSPHORUS 2.7 MG/DL (2.3-4.5); POTASSIUM 4.3 MMOL/L (3.5-5.1); SODIUM 137 MMOL/L (135-145); TOTAL CARBON DIOXIDE 28.8 MMOL/L (24-32); TOTAL PROTEIN 6.4 G/DL (6.4-8.2); eCRCL 45 ML/MIN; eGFR 48 ML/MIN
[2024-01-18] MEDS: DEXTROSE 15 GM of carb/4 tabs (each vial/BOTTLE has 4 tablets) PO PRN (07:46)
[2024-01-18] MEDS: CEFEPIME 2gm in D5W 50mL 50 ML IV SCH (09:38)
[2024-01-18 13:13] LABS: GLUCOSE,BODY FLUID 199 MG/DL; LDH,BODY FLUID 157 U/L
[2024-01-18 13:55] LABS: TOTAL PROTEIN,BODY FLUID < 2.0 G/DL
[2024-01-18 14:04] LABS: BFSOURCE RIGHT PLEURAL FLD
[2024-01-18 14:06] LABS: BFAPPEAR CLOUDY; BFSOURCE RIGHT PLEURAL FLD
[2024-01-18 14:07] LABS: BF RBC COUNT 9450 /CU MM; BF WBC COUNT 550 /CU MM (0-1000); BFCOLOR RED; BFVOLUME 60 ML; LYMPHOCYTES,BODY FLUID 84 %; MONOCYTES,BODY FLUID 2 %; NEUTROPHILS,BODY FLUID 14 %
[2024-01-18] MEDS: JUVEN Smoothie Arginine/Glut./Ca2+Bmb (Juven 19.3pkt) 240ml cup PO SCH (18:00)
[2024-01-19] VITALS (9 sets, daily range): BP systolic 121–140; BP diastolic 36–63; PULSE 61–74; RESP 16–20; TEMP 97–97.9; O2SAT 95–100
[2024-01-19 09:39] LABS: BASOPHILS # (AUTO) 0.1 X10'3 (0-0.2); BASOPHILS % (AUTO) 0.7 % (0-1); EOSINOPHILS # (AUTO) 0.4 X10'3 (0-0.9); EOSINOPHILS % (AUTO) 3.1 % (0-6); HEMATOCRIT 38.9 % (35.0-45.0); LYMPHOCYTES # (AUTO) 1.6 X10'3 (1.1-4.8); LYMPHOCYTES % (AUTO) 13.8 % (21-51); MEAN CORPUSCULAR HEMOGLOBIN 29.3 PG (27.0-31.0); MEAN CORPUSCULAR HGB CONC 33.5 g/dL (33.0-36.5); MEAN CORPUSCULAR VOLUME 87.4 FL (78-98); MEAN PLATELET VOLUME 9.9 FL (7.4-10.4); MONOCYTES # (AUTO) 1.2 X10'3 (0-0.9); MONOCYTES % (AUTO) 10.4 % (2-12); NEUTROPHILS # (AUTO) 8.6 X10'3 (1.8-7.7); PLATELET COUNT 146 X10'3 (140-440); RED BLOOD COUNT 4.45 X10'6 (4.20-5.60); RED CELL DISTRIBUTION WIDTH 13.6 % (11.5-14.5); WHITE BLOOD COUNT 11.9 X10'3 (4.5-11.0)
[2024-01-19 09:42] LABS: ALBUMIN 1.9 G/DL (3.4-5.0); ANION GAP 7 (8-16); BLOOD UREA NITROGEN 40 MG/DL (7-18); BUN/CREATININE RATIO 41.2 (10.0-20.0); CALCIUM 8.9 MG/DL (8.5-10.1); CHLORIDE 101 MMOL/L (99-107); CREATININE 0.97 MG/DL (0.40-0.90); GLUCOSE 196 MG/DL (70-104); SODIUM 135 MMOL/L (135-145); TOTAL CARBON DIOXIDE 27.3 MMOL/L (24-32); eCRCL 55 ML/MIN; eGFR 59 ML/MIN
[2024-01-20] VITALS (8 sets, daily range): BP systolic 99–143; BP diastolic 56–71; PULSE 59–82; RESP 16–22; TEMP 97.1–98; O2SAT 94–97
[2024-01-20] MEDS: ondansetron/PF 4mg/2ml inj IV PRN (10:10)
[2024-01-20 10:19] LABS: URINE AMPHETAMINE SCREEN NEGATIVE (Neg); URINE BARBITUATE SCREEN NEGATIVE (Neg); URINE BENZODIAZEPINES SCREEN NEGATIVE (Neg); URINE CANNABINOID SCREEN NEGATIVE (Neg); URINE COCAINE SCREEN NEGATIVE (Neg); URINE METHADONE SCREEN NEGATIVE (Neg); URINE OPIATE SCREEN POSITIVE (Neg); URINE PHENCYCLIDINE SCREEN NEGATIVE (Neg)
[2024-01-21] VITALS (8 sets, daily range): BP systolic 103–146; BP diastolic 52–70; PULSE 57–69; RESP 11–23; TEMP 97.7–98.8; O2SAT 95–98
[2024-01-22] VITALS (9 sets, daily range): BP systolic 114–156; BP diastolic 66–88; PULSE 56–85; RESP 13–20; TEMP 97.1–98.4; O2SAT 94–97
[2024-01-22] MEDS: metoprolol tartrate 25mg tablet PO SCH (19:55)
[2024-01-23] VITALS (8 sets, daily range): BP systolic 140–173; BP diastolic 62–84; PULSE 58–64; RESP 15–20; TEMP 97.6–98.4; O2SAT 96–100
[2024-01-23 06:53] LABS: BASOPHILS # (AUTO) 0.1 X10'3 (0-0.2); BASOPHILS % (AUTO) 0.4 % (0-1); EOSINOPHILS # (AUTO) 0.3 X10'3 (0-0.9); HEMATOCRIT 35.7 % (35.0-45.0); HEMOGLOBIN 11.8 g/dl (12.0-16.0); LYMPHOCYTES # (AUTO) 1.4 X10'3 (1.1-4.8); LYMPHOCYTES % (AUTO) 10.7 % (21-51); MEAN CORPUSCULAR HEMOGLOBIN 28.9 PG (27.0-31.0); MEAN CORPUSCULAR HGB CONC 32.9 g/dL (33.0-36.5); MEAN CORPUSCULAR VOLUME 87.8 FL (78-98); MEAN PLATELET VOLUME 9.5 FL (7.4-10.4); MONOCYTES # (AUTO) 1.1 X10'3 (0-0.9); MONOCYTES % (AUTO) 8.6 % (2-12); NEUTROPHILS # (AUTO) 9.9 X10'3 (1.8-7.7); NEUTROPHILS % (AUTO) 78.3 % (42-75); PLATELET COUNT 145 X10'3 (140-440); RED BLOOD COUNT 4.07 X10'6 (4.20-5.60); RED CELL DISTRIBUTION WIDTH 14.1 % (11.5-14.5); WHITE BLOOD COUNT 12.7 X10'3 (4.5-11.0)
[2024-01-23 07:20] LABS: ALANINE AMINOTRANSFERASE 6 U/L (12-78); ALBUMIN 1.7 G/DL (3.4-5.0); ALBUMIN/GLOBULIN RATIO 0.4 (1.1-1.5); ALKALINE PHOSPHATASE 109 IU/L (46-116); ANION GAP 6 (8-16); ASPARTATE AMINO TRANSFERASE 21 U/L (10-37); BILIRUBIN,TOTAL 0.4 MG/DL (0.1-1.0); BLOOD UREA NITROGEN 37 MG/DL (7-18); BUN/CREATININE RATIO 37.4 (10.0-20.0); CALCIUM 8.3 MG/DL (8.5-10.1); CHLORIDE 105 MMOL/L (99-107); CREATININE 0.99 MG/DL (0.40-0.90); GLUCOSE 151 MG/DL (70-104); POTASSIUM 5.3 MMOL/L (3.5-5.1); SODIUM 137 MMOL/L (135-145); TOTAL CARBON DIOXIDE 25.9 MMOL/L (24-32); TOTAL PROTEIN 6.3 G/DL (6.4-8.2); eCRCL 53 ML/MIN; eGFR 58 ML/MIN
[2024-01-23] MEDS: lactose-reduced food (Ensure Enlive) - 237ml bottle PO SCH (17:30)
[2024-01-23] MEDS: amiodarone 200mg tablet PO SCH (19:37)
[2024-01-23] MEDS: cefepime 1GM in D5W 50mL 50 ML IV SCH (21:54)
[2024-01-24] VITALS (13 sets, daily range): BP systolic 135–175; BP diastolic 48–78; PULSE 59–78; RESP 15–24; TEMP 97.3–99.7; O2SAT 91–99
[2024-01-24 07:36] LABS: BASOPHILS % (AUTO) 0.3 % (0-1); EOSINOPHILS # (AUTO) 0.2 X10'3 (0-0.9); EOSINOPHILS % (AUTO) 1.4 % (0-6); HEMATOCRIT 39.6 % (35.0-45.0); HEMOGLOBIN 12.9 g/dl (12.0-16.0); LYMPHOCYTES # (AUTO) 1.2 X10'3 (1.1-4.8); LYMPHOCYTES % (AUTO) 9.7 % (21-51); MEAN CORPUSCULAR HGB CONC 32.7 g/dL (33.0-36.5); MEAN CORPUSCULAR VOLUME 88.7 FL (78-98); MEAN PLATELET VOLUME 9.5 FL (7.4-10.4); MONOCYTES % (AUTO) 7.7 % (2-12); NEUTROPHILS # (AUTO) 10.4 X10'3 (1.8-7.7); NEUTROPHILS % (AUTO) 80.9 % (42-75); PLATELET COUNT 151 X10'3 (140-440); RED BLOOD COUNT 4.46 X10'6 (4.20-5.60); RED CELL DISTRIBUTION WIDTH 13.7 % (11.5-14.5); WHITE BLOOD COUNT 12.8 X10'3 (4.5-11.0)
[2024-01-24 07:59] LABS: ALANINE AMINOTRANSFERASE 10 U/L (12-78); ALBUMIN 1.9 G/DL (3.4-5.0); ALBUMIN/GLOBULIN RATIO 0.4 (1.1-1.5); ALKALINE PHOSPHATASE 114 IU/L (46-116); ANION GAP 4 (8-16); ASPARTATE AMINO TRANSFERASE 24 U/L (10-37); BILIRUBIN,TOTAL 0.4 MG/DL (0.1-1.0); BLOOD UREA NITROGEN 28 MG/DL (7-18); BUN/CREATININE RATIO 30.1 (10.0-20.0); CALCIUM 8.8 MG/DL (8.5-10.1); CHLORIDE 102 MMOL/L (99-107); CREATININE 0.93 MG/DL (0.40-0.90); GLUCOSE 115 MG/DL (70-104); POTASSIUM 4.9 MMOL/L (3.5-5.1); SODIUM 135 MMOL/L (135-145); TOTAL PROTEIN 7.2 G/DL (6.4-8.2); eCRCL 57 ML/MIN; eGFR 62 ML/MIN
[2024-01-24] MEDS: mag hydrox/Alum hydrox/simeth 30ml oral suspension PO PRN (08:00)
[2024-01-24] MEDS: ipratropium/albuterol 3ml nebule NEB PRN (11:55)
[2024-01-24] MEDS: budesonide 0.5mg/2ml UD nebule IH SCH (21:25)
[2024-01-24] MEDS: albuterol 2.5 MG/3 ML nebule NEB PRN (21:25)
[2024-01-24] MEDS: furosemide 40mg/4ml inj IV ONE (22:05)
[2024-01-25] VITALS (12 sets, daily range): BP systolic 128–158; BP diastolic 47–68; PULSE 61–85; RESP 14–21; TEMP 97.6–98.9; O2SAT 91–99
[2024-01-25 07:10] LABS: BASOPHILS % (AUTO) 0.3 % (0-1); EOSINOPHILS # (AUTO) 0.2 X10'3 (0-0.9); EOSINOPHILS % (AUTO) 1.9 % (0-6); HEMATOCRIT 36.3 % (35.0-45.0); HEMOGLOBIN 12.1 g/dl (12.0-16.0); LYMPHOCYTES # (AUTO) 1.2 X10'3 (1.1-4.8); LYMPHOCYTES % (AUTO) 10.4 % (21-51); MEAN CORPUSCULAR HEMOGLOBIN 29.4 PG (27.0-31.0); MEAN CORPUSCULAR HGB CONC 33.4 g/dL (33.0-36.5); MEAN PLATELET VOLUME 8.4 FL (7.4-10.4); MONOCYTES # (AUTO) 0.9 X10'3 (0-0.9); MONOCYTES % (AUTO) 7.7 % (2-12); NEUTROPHILS # (AUTO) 9.6 X10'3 (1.8-7.7); NEUTROPHILS % (AUTO) 79.7 % (42-75); PLATELET COUNT 155 X10'3 (140-440); RED BLOOD COUNT 4.13 X10'6 (4.20-5.60); RED CELL DISTRIBUTION WIDTH 13.4 % (11.5-14.5)
[2024-01-25 07:36] LABS: ALANINE AMINOTRANSFERASE 7 U/L (12-78); ALBUMIN 1.8 G/DL (3.4-5.0); ALBUMIN/GLOBULIN RATIO 0.4 (1.1-1.5); ALKALINE PHOSPHATASE 151 IU/L (46-116); ANION GAP 5 (8-16); ASPARTATE AMINO TRANSFERASE 25 U/L (10-37); BILIRUBIN,TOTAL 0.4 MG/DL (0.1-1.0); BLOOD UREA NITROGEN 30 MG/DL (7-18); BUN/CREATININE RATIO 34.1 (10.0-20.0); CALCIUM 8.4 MG/DL (8.5-10.1); CHLORIDE 101 MMOL/L (99-107); CREATININE 0.88 MG/DL (0.40-0.90); GLUCOSE 217 MG/DL (70-104); POTASSIUM 5.1 MMOL/L (3.5-5.1); SODIUM 134 MMOL/L (135-145); TOTAL CARBON DIOXIDE 28.3 MMOL/L (24-32); TOTAL PROTEIN 6.4 G/DL (6.4-8.2); eCRCL 60 ML/MIN; eGFR 66 ML/MIN
[2024-01-25] MEDS: furosemide 40mg/4ml inj IV SCH (08:00)
[2024-01-26] VITALS (10 sets, daily range): BP systolic 126–175; BP diastolic 55–80; PULSE 63–88; RESP 18–21; TEMP 97.3–97.7; O2SAT 92–96
[2024-01-26 06:35] LABS: BASOPHILS # (AUTO) 0.1 X10'3 (0-0.2); BASOPHILS % (AUTO) 0.8 % (0-1); EOSINOPHILS # (AUTO) 0.2 X10'3 (0-0.9); EOSINOPHILS % (AUTO) 2.1 % (0-6); HEMATOCRIT 33.9 % (35.0-45.0); HEMOGLOBIN 11.8 g/dl (12.0-16.0); LYMPHOCYTES # (AUTO) 1.6 X10'3 (1.1-4.8); LYMPHOCYTES % (AUTO) 16.5 % (21-51); MEAN CORPUSCULAR HEMOGLOBIN 30.4 PG (27.0-31.0); MEAN CORPUSCULAR HGB CONC 34.8 g/dL (33.0-36.5); MEAN CORPUSCULAR VOLUME 87.3 FL (78-98); MEAN PLATELET VOLUME 9.3 FL (7.4-10.4); MONOCYTES # (AUTO) 0.9 X10'3 (0-0.9); MONOCYTES % (AUTO) 8.7 % (2-12); NEUTROPHILS # (AUTO) 7.2 X10'3 (1.8-7.7); NEUTROPHILS % (AUTO) 71.9 % (42-75); PLATELET COUNT 133 X10'3 (140-440); RED BLOOD COUNT 3.89 X10'6 (4.20-5.60); RED CELL DISTRIBUTION WIDTH 13.8 % (11.5-14.5)
[2024-01-26 06:54] LABS: ALBUMIN 1.7 G/DL (3.4-5.0); ALBUMIN/GLOBULIN RATIO 0.4 (1.1-1.5); ALKALINE PHOSPHATASE 127 IU/L (46-116); ANION GAP 4 (8-16); ASPARTATE AMINO TRANSFERASE 23 U/L (10-37); BILIRUBIN,TOTAL 0.3 MG/DL (0.1-1.0); BLOOD UREA NITROGEN 30 MG/DL (7-18); BUN/CREATININE RATIO 32.3 (10.0-20.0); CALCIUM 8.2 MG/DL (8.5-10.1); CHLORIDE 100 MMOL/L (99-107); CREATININE 0.93 MG/DL (0.40-0.90); GLUCOSE 153 MG/DL (70-104); POTASSIUM 4.5 MMOL/L (3.5-5.1); SODIUM 134 MMOL/L (135-145); TOTAL CARBON DIOXIDE 30.4 MMOL/L (24-32); TOTAL PROTEIN 6.1 G/DL (6.4-8.2); eCRCL 57 ML/MIN; eGFR 62 ML/MIN
[2024-01-26 07:04] LABS: ALANINE AMINOTRANSFERASE 8 U/L (12-78)
[2024-01-26 13:52] LABS: ABG BASE EXCESS 6.4 mmol/L (-2.0-3.0); ABG OXYGEN SATURATION 98.5 % (94.0-98.0); ABG PCO2 (T) 24.2 mmHg (32.0-45.0); ABG PH (T) 7.649 (7.350-7.450); ABG PO2 (T) 89.7 mmHg (83.0-108.0); ALLEN'S TEST POSITIVE; FCOHb 1.1 % (0.5-1.5); FHHb 1.5 % (0.0-5.0); FLOW 0 L/min; FMetHb 0.3 % (0.0-1.5); FO2Hb 97.1 % (94.0-98.0); MODE ROOM AIR; PATIENT TEMPERATURE 36.8; TOTAL HEMOGLOBIN 13.7 G/dl (12.0-16.0)
[2024-01-26] MEDS ORDERED: cloNIDine 0.1 mg tablet PO PRN (16:55)
[2024-01-26] MEDS ORDERED: hydrALAZINE 20mg/ml inj. IV PRN (16:55)
[2024-01-26] MEDS: hydrALAZINE 20mg/ml inj. IV PRN (22:31)
[2024-01-27 02:00] VITALS: BP 119/58; PULSE 68; RESP 17; TEMP 97.2; O2SAT 94
[2024-01-27 06:00] VITALS: BP 166/77; PULSE 68; RESP 20; TEMP 97.5; O2SAT 96
[2024-01-27 06:42] LABS: ALANINE AMINOTRANSFERASE 7 U/L (12-78); ALBUMIN 1.9 G/DL (3.4-5.0); ALBUMIN/GLOBULIN RATIO 0.4 (1.1-1.5); ALKALINE PHOSPHATASE 157 IU/L (46-116); ANION GAP 5 (8-16); ASPARTATE AMINO TRANSFERASE 29 U/L (10-37); BILIRUBIN,TOTAL 0.4 MG/DL (0.1-1.0); BLOOD UREA NITROGEN 29 MG/DL (7-18); BUN/CREATININE RATIO 30.2 (10.0-20.0); CALCIUM 8.5 MG/DL (8.5-10.1); CHLORIDE 99 MMOL/L (99-107); CREATININE 0.96 MG/DL (0.40-0.90); GLUCOSE 245 MG/DL (70-104); POTASSIUM 4.6 MMOL/L (3.5-5.1); SODIUM 132 MMOL/L (135-145); TOTAL CARBON DIOXIDE 28.4 MMOL/L (24-32); TOTAL PROTEIN 6.8 G/DL (6.4-8.2); eCRCL 55 ML/MIN; eGFR 60 ML/MIN
[2024-01-27 07:45] VITALS: PULSE 72; RESP 18; O2SAT 98
[2024-01-27 07:51] VITALS: PULSE 88; RESP 18
[2024-01-27 07:52] LABS: BASOPHILS # (AUTO) 0.1 X10'3 (0-0.2); BASOPHILS % (AUTO) 0.7 % (0-1); EOSINOPHILS # (AUTO) 0.2 X10'3 (0-0.9); EOSINOPHILS % (AUTO) 2.2 % (0-6); HEMATOCRIT 34.7 % (35.0-45.0); HEMOGLOBIN 11.8 g/dl (12.0-16.0); LYMPHOCYTES % (AUTO) 10.8 % (21-51); MEAN CORPUSCULAR HEMOGLOBIN 29.4 PG (27.0-31.0); MEAN CORPUSCULAR HGB CONC 34.1 g/dL (33.0-36.5); MEAN CORPUSCULAR VOLUME 86.2 FL (78-98); MEAN PLATELET VOLUME 8.7 FL (7.4-10.4); MONOCYTES # (AUTO) 0.8 X10'3 (0-0.9); MONOCYTES % (AUTO) 8.1 % (2-12); NEUTROPHILS # (AUTO) 7.5 X10'3 (1.8-7.7); NEUTROPHILS % (AUTO) 78.2 % (42-75); PLATELET COUNT 123 X10'3 (140-440); RED BLOOD COUNT 4.02 X10'6 (4.20-5.60); RED CELL DISTRIBUTION WIDTH 13.6 % (11.5-14.5); WHITE BLOOD COUNT 9.6 X10'3 (4.5-11.0)
[2024-01-27 08:00] VITALS: RESP 20; O2SAT 96
[2024-01-27 11:00] VITALS: BP 139/63; PULSE 72; RESP 16; TEMP 98.4; O2SAT 95
[2024-01-27] MEDS ORDERED: FURO-150 PO (15:14)
[2024-01-27] MEDS ORDERED: LANTUS SQ (15:14)
[2024-01-27] MEDS ORDERED: GUAI600T45 PO (15:14)
[2024-01-27] MEDS ORDERED: ASPI-1 PO (15:14)
[2024-01-27] MEDS ORDERED: INSU100I8 SQ (15:14)
[2024-01-27] MEDS ORDERED: LOP25T PO (15:14)
[2024-01-27] MEDS ORDERED: ALBU2.5V7 NEB (15:14)
[2024-01-27] MEDS ORDERED: AMI200T PO (15:14)
[2024-01-27] MEDS ORDERED: ATOR20TA66 PO (15:14)
[2024-01-27] MEDS ORDERED: APIX5TAB3 PO (17:25)
== END 2024-01-27 16:31 | disposition home or self-care (01) | DRG 133 ==
LOC: ER 08:53 → UNDOADMIN 11:19 → ED HOLD 11:19 → EDBEDREQ 12:06 → PCU 3S 14:55 → ED HOLD 14:55 → CICU 2S 01-12 22:12 → PCU 3S 01-12 22:12 → ED HOLD 01-12 23:38 → CICU 2S 01-12 23:38 → PCU 3S 01-12 23:38
PROVIDERS: ADMIT Internal Medicine; ATTEND Internal Medicine
PROC: B32T1ZZ Computerized Tomography (CT Scan) of Left Pulmonary Artery using Low Osmolar Contrast (ICD-10-PCS; 2024-01-11)
PROC: B3201ZZ Computerized Tomography (CT Scan) of Thoracic Aorta using Low Osmolar Contrast (ICD-10-PCS; 2024-01-11)
PROC: B32S1ZZ Computerized Tomography (CT Scan) of Right Pulmonary Artery using Low Osmolar Contrast (ICD-10-PCS; 2024-01-11)
PROC: 5A12012 Performance of Cardiac Output, Single, Manual (ICD-10-PCS; 2024-01-12)
PROC: 02HV33Z Insertion of Infusion Device into Superior Vena Cava, Percutaneous Approach (ICD-10-PCS; principal; 2024-01-13)
PROC: 5A1945Z Respiratory Ventilation, 24-96 Consecutive Hours (ICD-10-PCS; 2024-01-13)
PROC: B548ZZA Ultrasonography of Superior Vena Cava, Guidance (ICD-10-PCS; 2024-01-13)
PROC: 0BH17EZ Insertion of Endotracheal Airway into Trachea, Via Natural or Artificial Opening (ICD-10-PCS; 2024-01-13)
PROC: 0W993ZZ Drainage of Right Pleural Cavity, Percutaneous Approach (ICD-10-PCS; 2024-01-18)
PROC: 0W993ZZ Drainage of Right Pleural Cavity, Percutaneous Approach (ICD-10-PCS; 2024-01-25)
DX: J96.01 Acute respiratory failure with hypoxia (principal); N17.0 Acute kidney failure with tubular necrosis; I46.9 Cardiac arrest, cause unspecified; I21.4 Non-ST elevation (NSTEMI) myocardial infarction; I50.21 Acute systolic (congestive) heart failure; J18.9 Pneumonia, unspecified organism; J91.8 Pleural effusion in other conditions classified elsewhere; I11.0 Hypertensive heart disease with heart failure; I42.9 Cardiomyopathy, unspecified; I49.01 Ventricular fibrillation; G35 Multiple sclerosis; E78.5 Hyperlipidemia, unspecified; M79.7 Fibromyalgia; F17.210 Nicotine dependence, cigarettes, uncomplicated; I25.10 Atherosclerotic heart disease of native coronary artery without angina pectoris; J45.909 Unspecified asthma, uncomplicated; F19.10 Other psychoactive substance abuse, uncomplicated; E11.51 Type 2 diabetes mellitus with diabetic peripheral angiopathy without gangrene; J43.9 Emphysema, unspecified; Z59.00 Homelessness unspecified; Z88.0 Allergy status to penicillin; Z79.899 Other long term (current) drug therapy; Z79.82 Long term (current) use of aspirin; Z79.4 Long term (current) use of insulin; Z86.73 Personal history of transient ischemic attack (TIA), and cerebral infarction without residual deficits; Z98.891 History of uterine scar from previous surgery; Z85.828 Personal history of other malignant neoplasm of skin; Z91.199 Patient's noncompliance with other medical treatment and regimen due to unspecified reason; Z79.01 Long term (current) use of anticoagulants
CPT/HCPCS: 32555; 36415; 36600; 70450; 71045; 71250; 71275; 74176; 80048; 80053; 80061; 80305; 81001; 82803; 82945; 82948; 83036; 83605; 83615; 83735; 83880; 83986; 84100; 84132; 84145; 84157; 84439; 84443; 84484; 85018; 85025; 85379; 85610; 85651; 85730; 87040; 87070; 87081; 87502; 87503; 89051; 92950; 93005; 93306; 94002; 94003; 94640; 94668; 94760; 94799; 97110; 97116; 97161; 97164; 97530; 97535; 99285; A4615; A5200; A6213; A6250; A6449; C1751; C1758; G0378; J0282; J0360; J0456; J0692; J0696; J0780; J1171; J1644; J1815; J1940; J2003; J2250; J2270; J2405; J2704; J3010; J3246; J3480; J3490; J7030; J7040; J7120; Q9963; Q9967

== ENCOUNTER 2024-03-22 14:00 | Inpatient (IN) | payer MEDICAID ==
[~2024-03-22] VITALS: Ht 157.5 cm; Wt 75.0 kg
[~2024-03-22 14:00] MED LIST changes: -ACET325T55 PO; -ALBU10.7 IH; -ALBU18HF2 INH; +ALBU2.5V7 NEB; +AMI200T PO; -AMLO10TA13 PO; +APIX5TAB3 PO; +ASPI-1 PO; -ASPI-1265 PO; +ATOR20TA66 PO; -ATOR40TA PO; -CLOP-32 PO; +FURO-150 PO; -GABA-1405 PO; +GUAI600T45 PO; -INSU100C10 SQ; +INSU100I8 SQ; +LOP25T PO; -METO25TA6 PO
[2024-03-22] MEDS: furosemide 20 MG/2 ML vial IV ONE (14:34)
[2024-03-22 14:46] LABS: BASOPHILS # (AUTO) 0.1 X10'3 (0-0.2); BASOPHILS % (AUTO) 1.7 % (0-1); EOSINOPHILS # (AUTO) 0.2 X10'3 (0-0.9); EOSINOPHILS % (AUTO) 2.8 % (0-6); HEMATOCRIT 42.1 % (35.0-45.0); HEMOGLOBIN 14.1 g/dl (12.0-16.0); LYMPHOCYTES # (AUTO) 1.5 X10'3 (1.1-4.8); MEAN CORPUSCULAR HEMOGLOBIN 28.7 PG (27.0-31.0); MEAN CORPUSCULAR HGB CONC 33.4 g/dL (33.0-36.5); MEAN CORPUSCULAR VOLUME 85.9 FL (78-98); MONOCYTES # (AUTO) 0.5 X10'3 (0-0.9); MONOCYTES % (AUTO) 8.8 % (2-12); NEUTROPHILS # (AUTO) 3.4 X10'3 (1.8-7.7); NEUTROPHILS % (AUTO) 59.7 % (42-75); PLATELET COUNT 93 X10'3 (140-440); RED CELL DISTRIBUTION WIDTH 15.2 % (11.5-14.5); WHITE BLOOD COUNT 5.7 X10'3 (4.5-11.0)
[2024-03-22 15:13] LABS: ALANINE AMINOTRANSFERASE 20 U/L (12-78); ALBUMIN 2.3 G/DL (3.4-5.0); ALBUMIN/GLOBULIN RATIO 0.5 (1.1-1.5); ALKALINE PHOSPHATASE 203 IU/L (46-116); ANION GAP 5 (8-16); ASPARTATE AMINO TRANSFERASE 55 U/L (10-37); BILIRUBIN,TOTAL 0.3 MG/DL (0.1-1.0); BLOOD UREA NITROGEN 14 MG/DL (7-18); BUN/CREATININE RATIO 18.9 (10.0-20.0); CALCIUM 8.9 MG/DL (8.5-10.1); CHLORIDE 102 MMOL/L (99-107); CREATININE 0.74 MG/DL (0.40-0.90); GLUCOSE 344 MG/DL (70-104); POTASSIUM 4.2 MMOL/L (3.5-5.1); SODIUM 133 MMOL/L (135-145); TOTAL CARBON DIOXIDE 26.3 MMOL/L (24-32); eCRCL 66 ML/MIN; eGFR 81 ML/MIN
[2024-03-22 15:16] LABS: PRO BRAIN NATRIURETIC PEPTIDE 4156 PG/ML (0-125)
[2024-03-22] MEDS ORDERED: magnesium hydroxide 30ml (MOM) UD suspension PO PRN (18:10)
[2024-03-22] MEDS ORDERED: ondansetron/PF 4mg/2ml inj IV PRN (18:10)
[2024-03-22] MEDS ORDERED: magnesium sulf-water 2g/50mL 50 ML IV PRN (18:10)
[2024-03-22] MEDS ORDERED: potassium Cl 20 mEq SR tablet PO PRN (18:10)
[2024-03-22] MEDS ORDERED: magnesium Cl slow-release 64mg tablet PO PRN (18:10)
[2024-03-22] MEDS ORDERED: mag hydrox/Alum hydrox/simeth 30ml oral suspension PO PRN (18:10)
[2024-03-22] MEDS ORDERED: magnesium sulf-water 4G/100mL 100 ML IV PRN (18:10)
[2024-03-22] MEDS ORDERED: acetaminophen 325mg tablet PO PRN ×2 (18:10)
[2024-03-22] MEDS ORDERED: potassium Cl 40MEQ/1/2NS 520ml 520 ML IV PRN (18:10)
[2024-03-22] MEDS ORDERED: ipratropium/albuterol 3ml nebule NEB PRN (18:20)
[2024-03-22] MEDS ORDERED: dextrose 50%-water 50ml dispensing syringe IV PRN ×2 (18:25)
[2024-03-22] MEDS ORDERED: glucagon, human recombinant 1mg kit SUBCUT PRN (18:25)
[2024-03-22] MEDS ORDERED: DEXTROSE 15 GM of carb/4 tabs (each vial/BOTTLE has 4 tablets) PO PRN ×2 (18:25)
[2024-03-22] MEDS: furosemide 40mg/4ml inj IV SCH (19:53)
[2024-03-22] MEDS: docusate sod 100mg capsule PO SCH (19:58)
[2024-03-22] MEDS: K and/or MAG REPLACEMENT MC SCH (19:58)
[2024-03-22] MEDS: metoprolol tartrate 25mg tablet PO SCH (19:58)
[2024-03-22] MEDS: apixaban 5mg tablet PO SCH (19:59)
[2024-03-22] MEDS: amLODIPine 5mg tablet PO SCH (19:59)
[2024-03-22] MEDS ORDERED: heparin, porcine 5000 units/ml vial SQ SCH (20:00)
[2024-03-22] MEDS: insulin glargine (Lantus) pen - multi-dose SQ SCH (20:03)
[2024-03-22 20:12] LABS: INR 1.1 INR; PROTHROMBIN TIME 11.4 SECONDS (9.0-12.0)
[2024-03-22] MEDS: ipratropium/albuterol 3ml nebule NEB SCH (20:48)
[2024-03-22] MEDS ORDERED: INSU100V64 SQ (20:51)
[2024-03-22] MEDS ORDERED: ALB0.5UD NEB (20:51)
[2024-03-22] MEDS ORDERED: ATOR20TA PO (20:51)
[2024-03-22] MEDS ORDERED: AMI200T PO (20:51)
[2024-03-22] MEDS ORDERED: APIX5TAB3 PO (20:51)
[2024-03-22] MEDS ORDERED: LANTUS SUBCUT (20:51)
[2024-03-22] MEDS ORDERED: METO25TA6 PO (20:51)
[2024-03-22] MEDS ORDERED: FURO-150 PO (20:51)
[2024-03-22] MEDS ORDERED: GUAI600T45 PO (20:51)
[2024-03-22 22:33] VITALS: PULSE 70; RESP 25; O2SAT 96
[2024-03-22 22:39] VITALS: PULSE 70; RESP 27
[2024-03-22] MEDS: INSULIN LISPRO 100 UNIT/ML INSULN.PEN MULTI-DOSE SQ SCH (23:40)
[2024-03-23] VITALS (16 sets, daily range): BP systolic 103–136; BP diastolic 59–72; PULSE 65–78; RESP 14–22; TEMP 97.6; O2SAT 9–98
[2024-03-23 04:37] LABS: BILIRUBIN,URINE NEGATIVE (Neg); CLARITY,URINE CLEAR (Clear); COLOR,URINE YELLOW (Yellow); GLUCOSE, URINE 100 mg/dl (Neg); KETONES,URINE NEGATIVE (Neg); LEUKOCYTE ESTERASE ,URINE NEGATIVE (Neg); NITRITES, URINE NEGATIVE (Neg); OCCULT BLOOD,URINE SMALL (Neg); PROTEIN,URINE >=300 mg/dl (Neg); UROBILINOGEN,URINE 0.2 E.U/dL (0.2-1.0)
[2024-03-23 04:39] LABS: UA COLLECTION TYPE NON-SPECIFIED
[2024-03-23 04:48] LABS: SQUAMOUS EPITHELIAL CELL,UR MODERATE /LPF (FEW)
[2024-03-23 04:49] LABS: BACTERIA,URINE 3+ /HPF (Neg); RBC,URINE 0-2 /HPF (0-2)
[2024-03-23 04:52] LABS: URINE AMPHETAMINE SCREEN POSITIVE (Neg); URINE BARBITUATE SCREEN NEGATIVE (Neg); URINE BENZODIAZEPINES SCREEN NEGATIVE (Neg); URINE CANNABINOID SCREEN NEGATIVE (Neg); URINE COCAINE SCREEN NEGATIVE (Neg); URINE METHADONE SCREEN NEGATIVE (Neg); URINE OPIATE SCREEN NEGATIVE (Neg); URINE PHENCYCLIDINE SCREEN NEGATIVE (Neg)
[2024-03-23 07:29] LABS: BASOPHILS # (AUTO) 0.1 X10'3 (0-0.2); BASOPHILS % (AUTO) 1.1 % (0-1); EOSINOPHILS # (AUTO) 0.2 X10'3 (0-0.9); EOSINOPHILS % (AUTO) 3.6 % (0-6); HEMATOCRIT 38.3 % (35.0-45.0); HEMOGLOBIN 12.7 g/dl (12.0-16.0); LYMPHOCYTES # (AUTO) 1.8 X10'3 (1.1-4.8); LYMPHOCYTES % (AUTO) 28.7 % (21-51); MEAN CORPUSCULAR HEMOGLOBIN 28.7 PG (27.0-31.0); MEAN CORPUSCULAR HGB CONC 33.3 g/dL (33.0-36.5); MEAN CORPUSCULAR VOLUME 86.3 FL (78-98); MEAN PLATELET VOLUME 9.1 FL (7.4-10.4); MONOCYTES # (AUTO) 0.6 X10'3 (0-0.9); MONOCYTES % (AUTO) 9.6 % (2-12); NEUTROPHILS # (AUTO) 3.6 X10'3 (1.8-7.7); PLATELET COUNT 103 X10'3 (140-440); RED BLOOD COUNT 4.44 X10'6 (4.20-5.60); WHITE BLOOD COUNT 6.4 X10'3 (4.5-11.0)
[2024-03-23 07:36] LABS: ALANINE AMINOTRANSFERASE 15 U/L (12-78); ALBUMIN 1.9 G/DL (3.4-5.0); ALBUMIN/GLOBULIN RATIO 0.5 (1.1-1.5); ALKALINE PHOSPHATASE 102 IU/L (46-116); ANION GAP 5 (8-16); ASPARTATE AMINO TRANSFERASE 48 U/L (10-37); BILIRUBIN,TOTAL 0.4 MG/DL (0.1-1.0); BLOOD UREA NITROGEN 16 MG/DL (7-18); BUN/CREATININE RATIO 17.6 (10.0-20.0); CALCIUM 8.4 MG/DL (8.5-10.1); CHLORIDE 102 MMOL/L (99-107); CREATININE 0.91 MG/DL (0.40-0.90); GLUCOSE 107 MG/DL (70-104); MAGNESIUM 1.8 MG/DL (1.5-2.4); POTASSIUM 3.5 MMOL/L (3.5-5.1); SODIUM 137 MMOL/L (135-145); TOTAL CARBON DIOXIDE 30.5 MMOL/L (24-32); eCRCL 53 ML/MIN; eGFR 63 ML/MIN
[2024-03-23] MEDS: atorvastatin 20mg tablet PO SCH (08:17)
[2024-03-23] MEDS: INSULIN LISPRO 100 UNIT/ML INSULN.PEN MULTI-DOSE SQ SCH (09:00)
[2024-03-23 10:38] LABS: BFSOURCE RIGHT PLEURAL FLD
[2024-03-23 11:00] LABS: GLUCOSE,BODY FLUID 173 MG/DL; LDH,BODY FLUID 66 U/L
[2024-03-23] MEDS: PERFLUTREN PROTEIN-A MICROSPHR (Optison) 0.22 MG/ML 3ML VIAL IV ONE (11:10)
[2024-03-23 11:32] LABS: EOSINOPHILS,BODY FLUID 2 %; LYMPHOCYTES,BODY FLUID 86 %; MONOCYTES,BODY FLUID 7 %; NEUTROPHILS,BODY FLUID 5 %
[2024-03-23 11:33] LABS: BF MESOTHELIAL CELLS FEW; BF RBC COUNT 195 /CU MM; BF WBC COUNT 340 /CU MM (0-1000); BFAPPEAR HAZY; BFCOLOR STRAW; BFSOURCE RIGHT PLEURAL FLD; BFVOLUME 51 ML
[2024-03-23] MEDS: traMADol 50MG tablet PO ONE (11:39)
[2024-03-23 11:40] LABS: TOTAL PROTEIN,BODY FLUID < 2.0 G/DL
[2024-03-23] MEDS: CefTRIAXone/D5W-Rocephin 1gm 50 ML IV SCH (11:45)
[2024-03-23] MEDS: amiodarone 200mg tablet PO SCH (11:45)
[2024-03-23 11:48] LABS: THYROID STIMULATING HORMONE 3.19 ulU/ml (0.34-4.50)
[2024-03-24] VITALS (8 sets, daily range): BP systolic 109–131; BP diastolic 54–60; PULSE 67–70; RESP 17–24; TEMP 96.8; O2SAT 93–98
[2024-03-24 06:30] LABS: BASOPHILS # (AUTO) 0.1 X10'3 (0-0.2); BASOPHILS % (AUTO) 0.8 % (0-1); EOSINOPHILS # (AUTO) 0.3 X10'3 (0-0.9); EOSINOPHILS % (AUTO) 4.1 % (0-6); HEMATOCRIT 38.4 % (35.0-45.0); HEMOGLOBIN 12.9 g/dl (12.0-16.0); LYMPHOCYTES # (AUTO) 1.8 X10'3 (1.1-4.8); LYMPHOCYTES % (AUTO) 27.3 % (21-51); MEAN CORPUSCULAR HGB CONC 33.7 g/dL (33.0-36.5); MEAN CORPUSCULAR VOLUME 86.1 FL (78-98); MEAN PLATELET VOLUME 9.5 FL (7.4-10.4); MONOCYTES # (AUTO) 0.6 X10'3 (0-0.9); MONOCYTES % (AUTO) 8.9 % (2-12); NEUTROPHILS % (AUTO) 58.9 % (42-75); PLATELET COUNT 99 X10'3 (140-440); RED BLOOD COUNT 4.46 X10'6 (4.20-5.60); RED CELL DISTRIBUTION WIDTH 14.7 % (11.5-14.5); WHITE BLOOD COUNT 6.7 X10'3 (4.5-11.0)
[2024-03-24 06:49] LABS: ALANINE AMINOTRANSFERASE 19 U/L (12-78); ALBUMIN 1.7 G/DL (3.4-5.0); ALBUMIN/GLOBULIN RATIO 0.4 (1.1-1.5); ALKALINE PHOSPHATASE 92 IU/L (46-116); ANION GAP 4 (8-16); ASPARTATE AMINO TRANSFERASE 46 U/L (10-37); BILIRUBIN,TOTAL 0.3 MG/DL (0.1-1.0); BLOOD UREA NITROGEN 21 MG/DL (7-18); BUN/CREATININE RATIO 22.6 (10.0-20.0); CALCIUM 7.9 MG/DL (8.5-10.1); CHLORIDE 100 MMOL/L (99-107); CREATININE 0.93 MG/DL (0.40-0.90); GLUCOSE 201 MG/DL (70-104); MAGNESIUM 2.3 MG/DL (1.5-2.4); PHOSPHORUS 3.8 MG/DL (2.3-4.5); POTASSIUM 3.2 MMOL/L (3.5-5.1); SODIUM 134 MMOL/L (135-145); TOTAL PROTEIN 5.7 G/DL (6.4-8.2); eCRCL 52 ML/MIN; eGFR 62 ML/MIN
[2024-03-24] MEDS: potassium Cl 20 mEq SR tablet PO PRN (07:57)
[2024-03-24] MEDS ORDERED: CEFD300C3 PO (11:44)
[2024-03-24] MEDS ORDERED: LACT1CAP26 PO (11:44)
[2024-03-24] MEDS ORDERED: FURO-150 PO (11:44)
[2024-03-24] MEDS ORDERED: ATOR20TA PO (11:44)
[2024-03-24] MEDS ORDERED: NOR5T PO (11:44)
[2024-03-24] MEDS ORDERED: IPRA3AMP9 IH (11:44)
[2024-03-24] MEDS ORDERED: AMI200T PO (11:44)
[2024-03-24] MEDS ORDERED: BUDE10.22 INH (11:48)
== END 2024-03-24 12:46 | disposition home or self-care (01) | DRG 194 ==
LOC: ER 14:01 → ED HOLD 17:25 → EDBEDREQ 03-23 15:34 → PCU 3S 03-23 21:48
PROVIDERS: ADMIT Family Medicine; ATTEND Family Medicine
PROC: 0W993ZZ Drainage of Right Pleural Cavity, Percutaneous Approach (ICD-10-PCS; principal; 2024-03-23)
DX: I11.0 Hypertensive heart disease with heart failure (principal); J91.8 Pleural effusion in other conditions classified elsewhere; I43 Cardiomyopathy in diseases classified elsewhere; I16.1 Hypertensive emergency; E11.9 Type 2 diabetes mellitus without complications; G35 Multiple sclerosis; I48.0 Paroxysmal atrial fibrillation; Z20.822 Contact with and (suspected) exposure to COVID-19; I50.33 Acute on chronic diastolic (congestive) heart failure; J43.9 Emphysema, unspecified; J44.9 Chronic obstructive pulmonary disease, unspecified; M79.7 Fibromyalgia; Z86.73 Personal history of transient ischemic attack (TIA), and cerebral infarction without residual deficits; Z59.00 Homelessness unspecified; Z88.0 Allergy status to penicillin; Z79.82 Long term (current) use of aspirin; Z79.899 Other long term (current) drug therapy; Z79.4 Long term (current) use of insulin; Z98.891 History of uterine scar from previous surgery
CPT/HCPCS: 32555; 36415; 71045; 80053; 80305; 81001; 82945; 82948; 83615; 83735; 83880; 83986; 84100; 84157; 84439; 84443; 84484; 85025; 85610; 87081; 87088; 87502; 87503; 87811; 89051; 93005; 93308; 94640; 94760; 97161; 97530; 99291; A4615; G0378; J0696; J1815; J1940

== ENCOUNTER 2024-05-05 19:39 | Inpatient (IN) | payer MEDICAID ==
[~2024-05-05] VITALS: Ht 157.5 cm; Wt 72.7 kg
[~2024-05-05 19:39] MED LIST changes: +ALB0.5UD NEB; -ALBU2.5V7 NEB; -ASPI-1 PO; +ATOR20TA PO; -ATOR20TA66 PO; +BUDE10.22 INH; -INSU100I8 SQ; +INSU100V64 SQ; +IPRA3AMP9 IH; +LACT1CAP26 PO; -LANTUS SQ; +LANTUS SUBCUT; -LOP25T PO; +METO25TA6 PO; +NOR5T PO
[2024-05-05 21:23] LABS: BASOPHILS % (AUTO) 0.4 % (0-1); EOSINOPHILS # (AUTO) 0.2 X10'3 (0-0.9); EOSINOPHILS % (AUTO) 2.6 % (0-6); HEMATOCRIT 43.4 % (35.0-45.0); HEMOGLOBIN 14.2 g/dl (12.0-16.0); LYMPHOCYTES # (AUTO) 1.6 X10'3 (1.1-4.8); LYMPHOCYTES % (AUTO) 22.5 % (21-51); MEAN CORPUSCULAR HEMOGLOBIN 27.5 PG (27.0-31.0); MEAN CORPUSCULAR HGB CONC 32.7 g/dL (33.0-36.5); MEAN PLATELET VOLUME 9.6 FL (7.4-10.4); MONOCYTES # (AUTO) 0.6 X10'3 (0-0.9); MONOCYTES % (AUTO) 8.4 % (2-12); NEUTROPHILS # (AUTO) 4.6 X10'3 (1.8-7.7); NEUTROPHILS % (AUTO) 66.1 % (42-75); PLATELET COUNT 137 X10'3 (140-440); RED BLOOD COUNT 5.17 X10'6 (4.20-5.60); RED CELL DISTRIBUTION WIDTH 14.2 % (11.5-14.5)
[2024-05-05 21:31] LABS: ALANINE AMINOTRANSFERASE 14 U/L (12-78); ALBUMIN 1.9 G/DL (3.4-5.0); ALBUMIN/GLOBULIN RATIO 0.4 (1.1-1.5); ALKALINE PHOSPHATASE 140 IU/L (46-116); ANION GAP 6 (8-16); ASPARTATE AMINO TRANSFERASE 38 U/L (10-37); BILIRUBIN,TOTAL 0.4 MG/DL (0.1-1.0); BLOOD UREA NITROGEN 14 MG/DL (7-18); BUN/CREATININE RATIO 16.9 (10.0-20.0); CALCIUM 8.5 MG/DL (8.5-10.1); CHLORIDE 102 MMOL/L (99-107); CREATININE 0.83 MG/DL (0.40-0.90); GLUCOSE 326 MG/DL (70-104); POTASSIUM 3.4 MMOL/L (3.5-5.1); SODIUM 139 MMOL/L (135-145); TOTAL CARBON DIOXIDE 31.2 MMOL/L (24-32); TOTAL PROTEIN 6.8 G/DL (6.4-8.2); eCRCL 58 ML/MIN; eGFR 70 ML/MIN
[2024-05-05 21:44] LABS: PRO BRAIN NATRIURETIC PEPTIDE 4273 PG/ML (0-125)
[2024-05-05] MEDS ORDERED: magnesium sulf-water 2g/50mL 50 ML IV PRN (22:40)
[2024-05-05] MEDS ORDERED: ondansetron/PF 4mg/2ml inj IV PRN (22:40)
[2024-05-05] MEDS ORDERED: potassium Cl 40MEQ/1/2NS 520ml 520 ML IV PRN (22:40)
[2024-05-05] MEDS ORDERED: potassium Cl 20 mEq SR tablet PO PRN (22:40)
[2024-05-05] MEDS ORDERED: mag hydrox/Alum hydrox/simeth 30ml oral suspension PO PRN (22:40)
[2024-05-05] MEDS ORDERED: magnesium sulf-water 4G/100mL 100 ML IV PRN (22:40)
[2024-05-05] MEDS ORDERED: magnesium hydroxide 30ml (MOM) UD suspension PO PRN (22:40)
[2024-05-05] MEDS ORDERED: acetaminophen 325mg tablet PO PRN (22:40)
[2024-05-05] MEDS ORDERED: albuterol 2.5 MG/3 ML nebule NEB PRN ×2 (22:40→23:50)
[2024-05-05] MEDS ORDERED: magnesium Cl slow-release 64mg tablet PO PRN (22:40)
[2024-05-05] MEDS: potassium Cl 20 mEq SR tablet PO PRN (22:55)
[2024-05-05] MEDS: furosemide 10 MG/1 ML 10ml inj IV ONE (22:56)
[2024-05-05 23:50] LABS: APTT 25 SECONDS (22-32); HEMOGLOBIN A1C 10.4 % (4.5-6.2); INR 1.1 INR; PROTHROMBIN TIME 11.7 SECONDS (9.0-12.0)
[2024-05-06] VITALS (19 sets, daily range): BP systolic 118–145; BP diastolic 67–79; PULSE 73–105; RESP 15–28; TEMP 95–98.2; O2SAT 94–99
[2024-05-06 00:07] LABS: THYROID STIMULATING HORMONE 2.91 ulU/ml (0.34-4.50)
[2024-05-06] MEDS ORDERED: glucagon, human recombinant 1mg kit SUBCUT PRN (00:30)
[2024-05-06] MEDS ORDERED: dextrose 50%-water 50ml dispensing syringe IV PRN (00:30)
[2024-05-06] MEDS ORDERED: DEXTROSE 15 GM of carb/4 tabs (each vial/BOTTLE has 4 tablets) PO PRN (00:30)
[2024-05-06] MEDS: ipratropium/albuterol 3ml nebule NEB SCH ×2 (00:39→03:10)
[2024-05-06] MEDS: labetalol 20mg/4ml (5mg/ml) syringe IV ONE (01:18)
[2024-05-06] MEDS: furosemide 10 MG/1 ML 10ml inj IV ONE (01:20)
[2024-05-06 02:33] LABS: BILIRUBIN,URINE NEGATIVE (Neg); CLARITY,URINE CLEAR (Clear); COLOR,URINE YELLOW (Yellow); GLUCOSE, URINE >=1000 mg/dl (Neg); KETONES,URINE NEGATIVE (Neg); LEUKOCYTE ESTERASE ,URINE NEGATIVE (Neg); NITRITES, URINE NEGATIVE (Neg); OCCULT BLOOD,URINE MODERATE (Neg); PROTEIN,URINE 100 mg/dl (Neg); UROBILINOGEN,URINE 0.2 E.U/dL (0.2-1.0)
[2024-05-06 02:44] LABS: UA COLLECTION TYPE NON-SPECIFIED
[2024-05-06 02:45] LABS: RBC,URINE 0-2 /HPF (0-2); WBC,URINE 0-4 /HPF (0-4)
[2024-05-06 02:46] LABS: BACTERIA,URINE 1+ /HPF (Neg); SQUAMOUS EPITHELIAL CELL,UR FEW /LPF (FEW)
[2024-05-06 02:49] LABS: URINE AMPHETAMINE SCREEN POSITIVE (Neg); URINE BARBITUATE SCREEN NEGATIVE (Neg); URINE BENZODIAZEPINES SCREEN NEGATIVE (Neg); URINE CANNABINOID SCREEN NEGATIVE (Neg); URINE COCAINE SCREEN NEGATIVE (Neg); URINE METHADONE SCREEN NEGATIVE (Neg); URINE OPIATE SCREEN NEGATIVE (Neg); URINE PHENCYCLIDINE SCREEN NEGATIVE (Neg)
[2024-05-06 03:54] LABS: BASOPHILS # (AUTO) 0.1 X10'3 (0-0.2); BASOPHILS % (AUTO) 1.3 % (0-1); EOSINOPHILS # (AUTO) 0.2 X10'3 (0-0.9); EOSINOPHILS % (AUTO) 2.9 % (0-6); HEMATOCRIT 40.7 % (35.0-45.0); HEMOGLOBIN 13.4 g/dl (12.0-16.0); LYMPHOCYTES # (AUTO) 1.3 X10'3 (1.1-4.8); LYMPHOCYTES % (AUTO) 18.1 % (21-51); MEAN CORPUSCULAR HEMOGLOBIN 27.7 PG (27.0-31.0); MEAN CORPUSCULAR HGB CONC 32.9 g/dL (33.0-36.5); MEAN CORPUSCULAR VOLUME 84.1 FL (78-98); MEAN PLATELET VOLUME 8.8 FL (7.4-10.4); MONOCYTES # (AUTO) 0.7 X10'3 (0-0.9); MONOCYTES % (AUTO) 10.5 % (2-12); NEUTROPHILS # (AUTO) 4.7 X10'3 (1.8-7.7); NEUTROPHILS % (AUTO) 67.2 % (42-75); PLATELET COUNT 103 X10'3 (140-440); RED BLOOD COUNT 4.84 X10'6 (4.20-5.60); RED CELL DISTRIBUTION WIDTH 14.3 % (11.5-14.5)
[2024-05-06 04:13] LABS: ALANINE AMINOTRANSFERASE 14 U/L (12-78); ALBUMIN 1.6 G/DL (3.4-5.0); ALBUMIN/GLOBULIN RATIO 0.4 (1.1-1.5); ALKALINE PHOSPHATASE 123 IU/L (46-116); ANION GAP 3 (8-16); ASPARTATE AMINO TRANSFERASE 35 U/L (10-37); BILIRUBIN,TOTAL 0.3 MG/DL (0.1-1.0); BLOOD UREA NITROGEN 14 MG/DL (7-18); BUN/CREATININE RATIO 16.3 (10.0-20.0); CALCIUM 8.3 MG/DL (8.5-10.1); CHLORIDE 104 MMOL/L (99-107); CHOL/HDL RATIO 3.5 (0.00-4.99); CHOLESTEROL 211 MG/DL (0-200); CREATININE 0.86 MG/DL (0.40-0.90); GLUCOSE 319 MG/DL (70-104); HDL CHOLESTEROL 61 MG/DL (35-60); LDL CHOLESTEROL 120 MG/DL (50-100); MAGNESIUM 1.8 MG/DL (1.5-2.4); PHOSPHORUS 3.5 MG/DL (2.3-4.5); POTASSIUM 3.4 MMOL/L (3.5-5.1); SODIUM 140 MMOL/L (135-145); TOTAL CARBON DIOXIDE 32.6 MMOL/L (24-32); TRIGLYCERIDES 137 MG/DL (20-135); eCRCL 56 ML/MIN; eGFR 68 ML/MIN
[2024-05-06] MEDS: INSULIN LISPRO 100 UNIT/ML INSULN.PEN MULTI-DOSE SQ SCH ×2 (07:48→09:25)
[2024-05-06] MEDS: furosemide 10 MG/1 ML 10ml inj IV SCH (07:56)
[2024-05-06] MEDS: docusate sod 100mg capsule PO SCH (07:57)
[2024-05-06] MEDS: heparin, porcine 5000 units/ml vial SQ SCH (07:57)
[2024-05-06] MEDS: amLODIPine 5mg tablet PO SCH (07:57)
[2024-05-06] MEDS: lisinopril 5mg tablet PO SCH (07:58)
[2024-05-06] MEDS: morphine 2 MG/ML inj. syringe IV PRN (08:00)
[2024-05-06] MEDS: K and/or MAG REPLACEMENT MC SCH (08:00)
[2024-05-06] MEDS: atorvastatin 20mg tablet PO SCH (09:26)
[2024-05-06] MEDS: DEXTROSE 15 GM of carb/4 tabs (each vial/BOTTLE has 4 tablets) PO PRN (12:45)
[2024-05-06] MEDS: benzonatate 100mg capsule PO PRN (13:27)
[2024-05-06] MEDS: furosemide 40mg/4ml inj IV SCH (19:24)
[2024-05-06] MEDS: insulin glargine (Lantus) pen - multi-dose SQ SCH (21:17)
[2024-05-07] VITALS (12 sets, daily range): BP systolic 134–147; BP diastolic 73–98; PULSE 83–103; RESP 16–26; TEMP 97–98.7; O2SAT 90–96
[2024-05-07 07:13] LABS: BASOPHILS # (AUTO) 0.1 X10'3 (0-0.2); BASOPHILS % (AUTO) 0.7 % (0-1); EOSINOPHILS # (AUTO) 0.1 X10'3 (0-0.9); EOSINOPHILS % (AUTO) 1.7 % (0-6); HEMATOCRIT 43.3 % (35.0-45.0); LYMPHOCYTES # (AUTO) 1.5 X10'3 (1.1-4.8); LYMPHOCYTES % (AUTO) 17.3 % (21-51); MEAN CORPUSCULAR HEMOGLOBIN 27.3 PG (27.0-31.0); MEAN CORPUSCULAR HGB CONC 32.3 g/dL (33.0-36.5); MEAN CORPUSCULAR VOLUME 84.7 FL (78-98); MONOCYTES # (AUTO) 0.8 X10'3 (0-0.9); MONOCYTES % (AUTO) 8.6 % (2-12); NEUTROPHILS # (AUTO) 6.4 X10'3 (1.8-7.7); NEUTROPHILS % (AUTO) 71.7 % (42-75); PLATELET COUNT 154 X10'3 (140-440); RED BLOOD COUNT 5.11 X10'6 (4.20-5.60); RED CELL DISTRIBUTION WIDTH 14.2 % (11.5-14.5); WHITE BLOOD COUNT 8.9 X10'3 (4.5-11.0)
[2024-05-07] MEDS: aspirin 81mg tab.chew PO SCH (07:25)
[2024-05-07] MEDS: clopidogrel 75mg tablet PO SCH (07:25)
[2024-05-07] MEDS: apixaban 5mg tablet PO SCH (07:26)
[2024-05-07] MEDS: dextrose 50%-water 50ml dispensing syringe IV PRN (07:29)
[2024-05-07 08:02] LABS: ALANINE AMINOTRANSFERASE 12 U/L (12-78); ALBUMIN 1.7 G/DL (3.4-5.0); ALBUMIN/GLOBULIN RATIO 0.4 (1.1-1.5); ALKALINE PHOSPHATASE 101 IU/L (46-116); ANION GAP 6 (8-16); ASPARTATE AMINO TRANSFERASE 40 U/L (10-37); BILIRUBIN,TOTAL 0.3 MG/DL (0.1-1.0); BLOOD UREA NITROGEN 16 MG/DL (7-18); BUN/CREATININE RATIO 20.8 (10.0-20.0); CALCIUM 8.7 MG/DL (8.5-10.1); CHLORIDE 103 MMOL/L (99-107); CREATININE 0.77 MG/DL (0.40-0.90); GLUCOSE 58 MG/DL (70-104); MAGNESIUM 1.8 MG/DL (1.5-2.4); PHOSPHORUS 3.6 MG/DL (2.3-4.5); POTASSIUM 4.1 MMOL/L (3.5-5.1); SODIUM 141 MMOL/L (135-145); TOTAL PROTEIN 6.2 G/DL (6.4-8.2); eCRCL 62 ML/MIN; eGFR 77 ML/MIN
[2024-05-07] MEDS: nystatin 15 GM powder TP SCH (20:39)
[2024-05-07] MEDS: insulin glargine (Lantus) pen - multi-dose SQ SCH (20:39)
[2024-05-08] VITALS (16 sets, daily range): BP systolic 108–147; BP diastolic 58–74; PULSE 68–105; RESP 16–34; TEMP 96.9–98.6; O2SAT 91–99
[2024-05-08] MEDS: methylPREDNISolone sod succ 125mg/2ml vial IV ONE (01:11)
[2024-05-08 07:07] LABS: BASOPHILS % (AUTO) 0.5 % (0-1); EOSINOPHILS % (AUTO) 0.2 % (0-6); HEMATOCRIT 42.9 % (35.0-45.0); HEMOGLOBIN 14.1 g/dl (12.0-16.0); LYMPHOCYTES # (AUTO) 0.4 X10'3 (1.1-4.8); LYMPHOCYTES % (AUTO) 4.9 % (21-51); MEAN CORPUSCULAR HEMOGLOBIN 27.6 PG (27.0-31.0); MEAN CORPUSCULAR HGB CONC 32.8 g/dL (33.0-36.5); MEAN CORPUSCULAR VOLUME 84.2 FL (78-98); MEAN PLATELET VOLUME 8.9 FL (7.4-10.4); MONOCYTES # (AUTO) 0.1 X10'3 (0-0.9); MONOCYTES % (AUTO) 1.5 % (2-12); NEUTROPHILS # (AUTO) 8.3 X10'3 (1.8-7.7); NEUTROPHILS % (AUTO) 92.9 % (42-75); PLATELET COUNT 131 X10'3 (140-440); RED CELL DISTRIBUTION WIDTH 14.3 % (11.5-14.5); WHITE BLOOD COUNT 8.9 X10'3 (4.5-11.0)
[2024-05-08 07:50] LABS: ALANINE AMINOTRANSFERASE 13 U/L (12-78); ALBUMIN 1.8 G/DL (3.4-5.0); ALBUMIN/GLOBULIN RATIO 0.4 (1.1-1.5); ALKALINE PHOSPHATASE 103 IU/L (46-116); ANION GAP 8 (8-16); ASPARTATE AMINO TRANSFERASE 41 U/L (10-37); BILIRUBIN,TOTAL 0.6 MG/DL (0.1-1.0); BLOOD UREA NITROGEN 25 MG/DL (7-18); BUN/CREATININE RATIO 24.8 (10.0-20.0); CHLORIDE 97 MMOL/L (99-107); CREATININE 1.01 MG/DL (0.40-0.90); GLUCOSE 314 MG/DL (70-104); MAGNESIUM 1.9 MG/DL (1.5-2.4); PHOSPHORUS 4.4 MG/DL (2.3-4.5); POTASSIUM 4.6 MMOL/L (3.5-5.1); SODIUM 135 MMOL/L (135-145); TOTAL CARBON DIOXIDE 30.3 MMOL/L (24-32); TOTAL PROTEIN 6.8 G/DL (6.4-8.2); eCRCL 47 ML/MIN; eGFR 56 ML/MIN
[2024-05-08] MEDS: methylPREDNISolone sod succ/PF 40mg inj. IV SCH (09:40)
[2024-05-08] MEDS: amiodarone 200mg tablet PO SCH (09:41)
[2024-05-08] MEDS: insulin Lispro (HumaLOG) vial - multi-dose SQ ONE (10:27)
[2024-05-08] MEDS: hydrALAZINE 20mg/ml inj. IV PRN (11:42)
[2024-05-08] MEDS ORDERED: Insulin Reg/NS 100units/100mL 100 ML IV SCH (12:30)
[2024-05-08] MEDS ORDERED: dextrose 50%-water 50ml dispensing syringe IV PRN (12:30)
[2024-05-08] MEDS: insulin glargine (Lantus) VIAL- multi-dose SQ ONE (12:50)
[2024-05-08] MEDS: insulin regular, human 10 units/0.1 ml syringe SQ ONE (12:50)
[2024-05-08] MEDS ORDERED: INSULIN LISPRO 100 UNIT/ML INSULN.PEN MULTI-DOSE SQ SCH (13:00)
[2024-05-08] MEDS ORDERED: insulin regular, human U-100 10ml vial - multi-dose SQ ONE (13:05)
[2024-05-08] MEDS: Permethrin Cream 60gm TP ONE (20:45)
[2024-05-08] MEDS: insulin glargine (Lantus) pen - multi-dose SQ SCH (20:49)
[2024-05-08] MEDS: Permethrin 1% 59ml topical rinse TP ONE (21:00)
[2024-05-09] VITALS (16 sets, daily range): BP systolic 131–137; BP diastolic 60–72; PULSE 88–101; RESP 16–20; TEMP 96.9–97.8; O2SAT 85–99
[2024-05-09 06:51] LABS: BASOPHILS % (AUTO) 0.1 % (0-1); EOSINOPHILS % (AUTO) 0 % (0-6); HEMATOCRIT 40.9 % (35.0-45.0); HEMOGLOBIN 13.1 g/dl (12.0-16.0); LYMPHOCYTES # (AUTO) 0.7 X10'3 (1.1-4.8); LYMPHOCYTES % (AUTO) 4.1 % (21-51); MEAN CORPUSCULAR HEMOGLOBIN 27.1 PG (27.0-31.0); MEAN CORPUSCULAR VOLUME 84.6 FL (78-98); MEAN PLATELET VOLUME 8.9 FL (7.4-10.4); MONOCYTES # (AUTO) 0.7 X10'3 (0-0.9); NEUTROPHILS # (AUTO) 15.5 X10'3 (1.8-7.7); NEUTROPHILS % (AUTO) 91.8 % (42-75); PLATELET COUNT 138 X10'3 (140-440); RED BLOOD COUNT 4.84 X10'6 (4.20-5.60); RED CELL DISTRIBUTION WIDTH 14.7 % (11.5-14.5); WHITE BLOOD COUNT 16.9 X10'3 (4.5-11.0)
[2024-05-09 07:04] LABS: ALANINE AMINOTRANSFERASE 11 U/L (12-78); ALBUMIN 1.7 G/DL (3.4-5.0); ALBUMIN/GLOBULIN RATIO 0.4 (1.1-1.5); ALKALINE PHOSPHATASE 99 IU/L (46-116); ANION GAP 6 (8-16); ASPARTATE AMINO TRANSFERASE 29 U/L (10-37); BILIRUBIN,TOTAL 0.3 MG/DL (0.1-1.0); BLOOD UREA NITROGEN 44 MG/DL (7-18); BUN/CREATININE RATIO 47.3 (10.0-20.0); CALCIUM 8.6 MG/DL (8.5-10.1); CHLORIDE 95 MMOL/L (99-107); CREATININE 0.93 MG/DL (0.40-0.90); GLUCOSE 325 MG/DL (70-104); MAGNESIUM 1.9 MG/DL (1.5-2.4); PHOSPHORUS 3.8 MG/DL (2.3-4.5); SODIUM 134 MMOL/L (135-145); TOTAL CARBON DIOXIDE 33.5 MMOL/L (24-32); TOTAL PROTEIN 6.4 G/DL (6.4-8.2); eCRCL 52 ML/MIN; eGFR 62 ML/MIN
[2024-05-09] MEDS: INSULIN LISPRO 100 UNIT/ML INSULN.PEN MULTI-DOSE SQ SCH (09:00)
[2024-05-09] MEDS: insulin glargine (Lantus) pen - multi-dose SQ SCH (13:09)
[2024-05-09] MEDS: Ivermectin 3mg tablet PO ONE (13:18)
[2024-05-10] VITALS (12 sets, daily range): BP systolic 111–142; BP diastolic 52–89; PULSE 81–94; RESP 14–21; TEMP 97.8–98.4; O2SAT 93–98
[2024-05-10 06:27] LABS: BASOPHILS % (AUTO) 0.3 % (0-1); EOSINOPHILS % (AUTO) 0 % (0-6); HEMATOCRIT 39.2 % (35.0-45.0); HEMOGLOBIN 12.9 g/dl (12.0-16.0); LYMPHOCYTES # (AUTO) 0.6 X10'3 (1.1-4.8); LYMPHOCYTES % (AUTO) 4.2 % (21-51); MEAN CORPUSCULAR HEMOGLOBIN 27.5 PG (27.0-31.0); MEAN CORPUSCULAR HGB CONC 32.9 g/dL (33.0-36.5); MEAN CORPUSCULAR VOLUME 83.8 FL (78-98); MEAN PLATELET VOLUME 9.1 FL (7.4-10.4); MONOCYTES # (AUTO) 0.4 X10'3 (0-0.9); MONOCYTES % (AUTO) 2.9 % (2-12); NEUTROPHILS # (AUTO) 14.3 X10'3 (1.8-7.7); NEUTROPHILS % (AUTO) 92.6 % (42-75); PLATELET COUNT 131 X10'3 (140-440); RED BLOOD COUNT 4.68 X10'6 (4.20-5.60); RED CELL DISTRIBUTION WIDTH 14.4 % (11.5-14.5); WHITE BLOOD COUNT 15.5 X10'3 (4.5-11.0)
[2024-05-10 07:08] LABS: ALANINE AMINOTRANSFERASE 15 U/L (12-78); ALBUMIN 1.8 G/DL (3.4-5.0); ALBUMIN/GLOBULIN RATIO 0.4 (1.1-1.5); ALKALINE PHOSPHATASE 108 IU/L (46-116); ANION GAP 6 (8-16); ASPARTATE AMINO TRANSFERASE 26 U/L (10-37); BILIRUBIN,TOTAL 0.2 MG/DL (0.1-1.0); BLOOD UREA NITROGEN 52 MG/DL (7-18); BUN/CREATININE RATIO 53.6 (10.0-20.0); CALCIUM 8.6 MG/DL (8.5-10.1); CHLORIDE 97 MMOL/L (99-107); CREATININE 0.97 MG/DL (0.40-0.90); GLUCOSE 224 MG/DL (70-104); PHOSPHORUS 3.1 MG/DL (2.3-4.5); POTASSIUM 3.6 MMOL/L (3.5-5.1); SODIUM 136 MMOL/L (135-145); TOTAL CARBON DIOXIDE 33.2 MMOL/L (24-32); TOTAL PROTEIN 6.6 G/DL (6.4-8.2); eCRCL 49 ML/MIN; eGFR 59 ML/MIN
[2024-05-10] MEDS: methylPREDNISolone sod succ/PF 40mg inj. IV SCH (08:55)
[2024-05-10] MEDS: INSULIN LISPRO 100 UNIT/ML INSULN.PEN MULTI-DOSE SQ SCH (11:17)
[2024-05-11] VITALS (13 sets, daily range): BP systolic 134–151; BP diastolic 76–88; PULSE 84–97; RESP 14–24; TEMP 97.7–98.3; O2SAT 87–99
[2024-05-11] MEDS: predniSONE 20 mg tablet PO SCH (08:27)
[2024-05-11 08:48] LABS: BASOPHILS % (AUTO) 0.1 % (0-1); EOSINOPHILS % (AUTO) 0 % (0-6); HEMOGLOBIN 13.5 g/dl (12.0-16.0); LYMPHOCYTES # (AUTO) 0.8 X10'3 (1.1-4.8); LYMPHOCYTES % (AUTO) 5.6 % (21-51); MEAN CORPUSCULAR HEMOGLOBIN 27.1 PG (27.0-31.0); MEAN CORPUSCULAR HGB CONC 32.1 g/dL (33.0-36.5); MEAN CORPUSCULAR VOLUME 84.3 FL (78-98); MEAN PLATELET VOLUME 8.9 FL (7.4-10.4); MONOCYTES # (AUTO) 0.7 X10'3 (0-0.9); MONOCYTES % (AUTO) 5.2 % (2-12); NEUTROPHILS % (AUTO) 89.1 % (42-75); PLATELET COUNT 120 X10'3 (140-440); RED BLOOD COUNT 4.98 X10'6 (4.20-5.60); RED CELL DISTRIBUTION WIDTH 14.3 % (11.5-14.5); WHITE BLOOD COUNT 13.5 X10'3 (4.5-11.0)
[2024-05-11 09:00] LABS: ALANINE AMINOTRANSFERASE 18 U/L (12-78); ALBUMIN 1.9 G/DL (3.4-5.0); ALBUMIN/GLOBULIN RATIO 0.4 (1.1-1.5); ALKALINE PHOSPHATASE 103 IU/L (46-116); ANION GAP 3 (8-16); ASPARTATE AMINO TRANSFERASE 31 U/L (10-37); BILIRUBIN,TOTAL 0.2 MG/DL (0.1-1.0); BLOOD UREA NITROGEN 53 MG/DL (7-18); BUN/CREATININE RATIO 51.5 (10.0-20.0); CALCIUM 8.5 MG/DL (8.5-10.1); CHLORIDE 99 MMOL/L (99-107); CREATININE 1.03 MG/DL (0.40-0.90); GLUCOSE 240 MG/DL (70-104); POTASSIUM 3.7 MMOL/L (3.5-5.1); SODIUM 137 MMOL/L (135-145); TOTAL CARBON DIOXIDE 34.9 MMOL/L (24-32); TOTAL PROTEIN 6.5 G/DL (6.4-8.2); eCRCL 47 ML/MIN; eGFR 55 ML/MIN
[2024-05-11] MEDS: INSULIN LISPRO 100 UNIT/ML INSULN.PEN MULTI-DOSE SQ SCH ×2 (12:06→18:54)
[2024-05-11] MEDS: morphine 2 MG/ML inj. syringe IV PRN (12:15)
[2024-05-11] MEDS: INSULIN LISPRO 100 UNIT/ML INSULN.PEN MULTI-DOSE SQ ONE (15:18)
[2024-05-12] VITALS (10 sets, daily range): BP systolic 132–142; BP diastolic 69–74; PULSE 77–94; RESP 14–20; TEMP 97.5–98.5; O2SAT 93–99
[2024-05-12] MEDS ORDERED: INSULIN LISPRO 100 UNIT/ML INSULN.PEN MULTI-DOSE SQ SCH (09:00)
[2024-05-12 09:36] LABS: C DIFF ANTIGEN NEGATIVE (NEGATIVE); C DIFF SPECIMEN=DIARRHEA? ACCEPTABLE; C DIFFICILE TOXINS A&B NEGATIVE (Neg)
[2024-05-12 09:50] LABS: BASOPHILS % (AUTO) 0.1 % (0-1); EOSINOPHILS # (AUTO) 0.1 X10'3 (0-0.9); EOSINOPHILS % (AUTO) 1.1 % (0-6); HEMATOCRIT 41.8 % (35.0-45.0); HEMOGLOBIN 13.7 g/dl (12.0-16.0); LYMPHOCYTES % (AUTO) 16.5 % (21-51); MEAN CORPUSCULAR HEMOGLOBIN 27.4 PG (27.0-31.0); MEAN CORPUSCULAR HGB CONC 32.7 g/dL (33.0-36.5); MEAN CORPUSCULAR VOLUME 83.6 FL (78-98); MEAN PLATELET VOLUME 8.6 FL (7.4-10.4); MONOCYTES # (AUTO) 1.2 X10'3 (0-0.9); MONOCYTES % (AUTO) 9.3 % (2-12); PLATELET COUNT 120 X10'3 (140-440); RED CELL DISTRIBUTION WIDTH 14.4 % (11.5-14.5); WHITE BLOOD COUNT 12.4 X10'3 (4.5-11.0)
[2024-05-12] MEDS: acetaminophen 325mg tablet PO PRN (09:50)
[2024-05-12 10:12] LABS: ALANINE AMINOTRANSFERASE 24 U/L (12-78); ALBUMIN 1.8 G/DL (3.4-5.0); ALBUMIN/GLOBULIN RATIO 0.4 (1.1-1.5); ALKALINE PHOSPHATASE 103 IU/L (46-116); ANION GAP 4 (8-16); ASPARTATE AMINO TRANSFERASE 46 U/L (10-37); BILIRUBIN,TOTAL 0.2 MG/DL (0.1-1.0); BLOOD UREA NITROGEN 55 MG/DL (7-18); BUN/CREATININE RATIO 59.1 (10.0-20.0); CALCIUM 8.3 MG/DL (8.5-10.1); CHLORIDE 100 MMOL/L (99-107); CREATININE 0.93 MG/DL (0.40-0.90); GLUCOSE 102 MG/DL (70-104); POTASSIUM 3.6 MMOL/L (3.5-5.1); SODIUM 139 MMOL/L (135-145); TOTAL CARBON DIOXIDE 35.1 MMOL/L (24-32); TOTAL PROTEIN 6.1 G/DL (6.4-8.2); eCRCL 52 ML/MIN; eGFR 62 ML/MIN
[2024-05-12] MEDS: psyllium seed 5.8 gm packet (sugar-free) PO ONE (12:45)
[2024-05-12] MEDS: psyllium seed 5.8 gm packet (sugar-free) PO SCH (15:47)
[2024-05-12] MEDS: insulin glargine (Lantus) pen - multi-dose SQ SCH (21:51)
[2024-05-12] MEDS: loperamide 2mg capsule PO PRN (21:52)
[2024-05-13] VITALS (11 sets, daily range): BP systolic 122–140; BP diastolic 64–78; PULSE 75–88; RESP 14–20; TEMP 97.3–97.9; O2SAT 93–100
[2024-05-13 06:16] LABS: BASOPHILS % (AUTO) 0.3 % (0-1); EOSINOPHILS # (AUTO) 0.2 X10'3 (0-0.9); EOSINOPHILS % (AUTO) 2.2 % (0-6); HEMATOCRIT 40.9 % (35.0-45.0); HEMOGLOBIN 13.5 g/dl (12.0-16.0); LYMPHOCYTES # (AUTO) 2.2 X10'3 (1.1-4.8); LYMPHOCYTES % (AUTO) 19.3 % (21-51); MEAN CORPUSCULAR HEMOGLOBIN 27.5 PG (27.0-31.0); MEAN CORPUSCULAR HGB CONC 32.9 g/dL (33.0-36.5); MEAN CORPUSCULAR VOLUME 83.7 FL (78-98); MEAN PLATELET VOLUME 9.3 FL (7.4-10.4); MONOCYTES # (AUTO) 1.1 X10'3 (0-0.9); MONOCYTES % (AUTO) 9.3 % (2-12); NEUTROPHILS # (AUTO) 7.8 X10'3 (1.8-7.7); NEUTROPHILS % (AUTO) 68.9 % (42-75); PLATELET COUNT 105 X10'3 (140-440); RED BLOOD COUNT 4.89 X10'6 (4.20-5.60); RED CELL DISTRIBUTION WIDTH 14.4 % (11.5-14.5); WHITE BLOOD COUNT 11.3 X10'3 (4.5-11.0)
[2024-05-13 06:43] LABS: ALANINE AMINOTRANSFERASE 18 U/L (12-78); ALBUMIN 1.7 G/DL (3.4-5.0); ALBUMIN/GLOBULIN RATIO 0.4 (1.1-1.5); ALKALINE PHOSPHATASE 99 IU/L (46-116); ANION GAP 1 (8-16); ASPARTATE AMINO TRANSFERASE 36 U/L (10-37); BILIRUBIN,TOTAL 0.2 MG/DL (0.1-1.0); BLOOD UREA NITROGEN 51 MG/DL (7-18); CALCIUM 8.3 MG/DL (8.5-10.1); CHLORIDE 100 MMOL/L (99-107); CREATININE 0.75 MG/DL (0.40-0.90); GLUCOSE 176 MG/DL (70-104); POTASSIUM 3.8 MMOL/L (3.5-5.1); SODIUM 137 MMOL/L (135-145); TOTAL CARBON DIOXIDE 35.7 MMOL/L (24-32); TOTAL PROTEIN 5.8 G/DL (6.4-8.2); eCRCL 64 ML/MIN; eGFR 79 ML/MIN
[2024-05-13] MEDS: HYDROcodone/acetaminophen 5mg/325mg tablet PO PRN (13:51)
[2024-05-13] MEDS: INSULIN LISPRO 100 UNIT/ML INSULN.PEN MULTI-DOSE SQ SCH (17:45)
[2024-05-14 06:00] VITALS: BP 130/73; PULSE 73; RESP 16; TEMP 98.2; O2SAT 96
[2024-05-14 06:03] LABS: BASOPHILS % (AUTO) 0.2 % (0-1); EOSINOPHILS # (AUTO) 0.5 X10'3 (0-0.9); EOSINOPHILS % (AUTO) 3.9 % (0-6); HEMATOCRIT 40.8 % (35.0-45.0); HEMOGLOBIN 13.4 g/dl (12.0-16.0); LYMPHOCYTES # (AUTO) 1.8 X10'3 (1.1-4.8); LYMPHOCYTES % (AUTO) 14.5 % (21-51); MEAN CORPUSCULAR HEMOGLOBIN 27.6 PG (27.0-31.0); MEAN CORPUSCULAR HGB CONC 32.9 g/dL (33.0-36.5); MEAN CORPUSCULAR VOLUME 83.9 FL (78-98); MEAN PLATELET VOLUME 9.5 FL (7.4-10.4); MONOCYTES % (AUTO) 8.5 % (2-12); NEUTROPHILS # (AUTO) 8.9 X10'3 (1.8-7.7); NEUTROPHILS % (AUTO) 72.9 % (42-75); PLATELET COUNT 102 X10'3 (140-440); RED BLOOD COUNT 4.86 X10'6 (4.20-5.60); RED CELL DISTRIBUTION WIDTH 14.3 % (11.5-14.5); WHITE BLOOD COUNT 12.2 X10'3 (4.5-11.0)
[2024-05-14 06:30] LABS: ALANINE AMINOTRANSFERASE 21 U/L (12-78); ALBUMIN 1.8 G/DL (3.4-5.0); ALBUMIN/GLOBULIN RATIO 0.4 (1.1-1.5); ALKALINE PHOSPHATASE 95 IU/L (46-116); ANION GAP -1 (8-16); ASPARTATE AMINO TRANSFERASE 41 U/L (10-37); BILIRUBIN,TOTAL 0.4 MG/DL (0.1-1.0); BLOOD UREA NITROGEN 48 MG/DL (7-18); BUN/CREATININE RATIO 63.2 (10.0-20.0); CALCIUM 8.2 MG/DL (8.5-10.1); CHLORIDE 100 MMOL/L (99-107); CREATININE 0.76 MG/DL (0.40-0.90); GLUCOSE 185 MG/DL (70-104); POTASSIUM 4.2 MMOL/L (3.5-5.1); SODIUM 135 MMOL/L (135-145); TOTAL CARBON DIOXIDE 35.8 MMOL/L (24-32); TOTAL PROTEIN 5.9 G/DL (6.4-8.2); eCRCL 63 ML/MIN; eGFR 78 ML/MIN
[2024-05-14 08:00] VITALS: RESP 16; O2SAT 96
[2024-05-14 11:30] VITALS: PULSE 79; RESP 18; O2SAT 93
[2024-05-14 11:38] VITALS: PULSE 76; RESP 18
[2024-05-14 18:00] VITALS: BP 119/68; PULSE 84; RESP 20; TEMP 98.2; O2SAT 96
[2024-05-14 22:00] VITALS: BP 133/74; PULSE 86; RESP 21; TEMP 97.4; O2SAT 99
[2024-05-15 05:24] LABS: BASOPHILS % (AUTO) 0.3 % (0-1); EOSINOPHILS # (AUTO) 0.5 X10'3 (0-0.9); EOSINOPHILS % (AUTO) 4.2 % (0-6); HEMATOCRIT 42.1 % (35.0-45.0); HEMOGLOBIN 13.8 g/dl (12.0-16.0); LYMPHOCYTES % (AUTO) 15.9 % (21-51); MEAN CORPUSCULAR HEMOGLOBIN 27.3 PG (27.0-31.0); MEAN CORPUSCULAR HGB CONC 32.7 g/dL (33.0-36.5); MEAN CORPUSCULAR VOLUME 83.6 FL (78-98); MONOCYTES % (AUTO) 7.8 % (2-12); NEUTROPHILS # (AUTO) 9.1 X10'3 (1.8-7.7); NEUTROPHILS % (AUTO) 71.8 % (42-75); PLATELET COUNT 111 X10'3 (140-440); RED BLOOD COUNT 5.04 X10'6 (4.20-5.60); RED CELL DISTRIBUTION WIDTH 14.9 % (11.5-14.5); WHITE BLOOD COUNT 12.6 X10'3 (4.5-11.0)
[2024-05-15 05:57] LABS: ALANINE AMINOTRANSFERASE 27 U/L (12-78); ALBUMIN 1.8 G/DL (3.4-5.0); ALBUMIN/GLOBULIN RATIO 0.4 (1.1-1.5); ALKALINE PHOSPHATASE 109 IU/L (46-116); ANION GAP 4 (8-16); ASPARTATE AMINO TRANSFERASE 48 U/L (10-37); BILIRUBIN,TOTAL 0.3 MG/DL (0.1-1.0); BLOOD UREA NITROGEN 48 MG/DL (7-18); BUN/CREATININE RATIO 52.7 (10.0-20.0); CALCIUM 8.5 MG/DL (8.5-10.1); CHLORIDE 98 MMOL/L (99-107); CREATININE 0.91 MG/DL (0.40-0.90); GLUCOSE 185 MG/DL (70-104); POTASSIUM 4.4 MMOL/L (3.5-5.1); SODIUM 135 MMOL/L (135-145); TOTAL CARBON DIOXIDE 33.3 MMOL/L (24-32); eCRCL 53 ML/MIN; eGFR 63 ML/MIN
[2024-05-15 06:00] VITALS: BP 136/81; PULSE 74; RESP 16; TEMP 97.6; O2SAT 97
[2024-05-15 08:00] VITALS: RESP 16; O2SAT 97
[2024-05-15 08:10] VITALS: BP_SYST 148; PULSE 78
[2024-05-15] MEDS ORDERED: BUDE10.22 INH (10:54)
[2024-05-15] MEDS ORDERED: AMI200T PO (10:54)
[2024-05-15] MEDS ORDERED: ATOR40TA PO (10:54)
[2024-05-15] MEDS ORDERED: LISI5TAB22 PO (10:54)
[2024-05-15] MEDS ORDERED: INSU100I57 SQ (10:54)
[2024-05-15] MEDS ORDERED: AMLO-708 PO (10:54)
[2024-05-15] MEDS ORDERED: CLOP75TA34 PO (10:54)
[2024-05-15] MEDS ORDERED: METO-395 PO (10:54)
[2024-05-15] MEDS ORDERED: INSU100I31 SQ (10:54)
[2024-05-15] MEDS ORDERED: APIX5TAB3 PO (10:54)
[2024-05-15] MEDS ORDERED: FURO40TA4 PO (10:54)
[2024-05-15] MEDS ORDERED: IPRA4AER IH (10:57)
== END 2024-05-15 16:40 | disposition home or self-care (01) | DRG 133 ==
LOC: ER 19:39 → ED HOLD 22:46 → PCU 3S 05-06 05:25 → SUR 3N 05-09 16:01
PROVIDERS: ADMIT Internal Medicine Critical Care Medicine; ATTEND Family Medicine
PROC: 0W993ZZ Drainage of Right Pleural Cavity, Percutaneous Approach (ICD-10-PCS; principal; 2024-05-10)
DX: J96.01 Acute respiratory failure with hypoxia (principal); I50.33 Acute on chronic diastolic (congestive) heart failure; J91.8 Pleural effusion in other conditions classified elsewhere; J44.1 Chronic obstructive pulmonary disease with (acute) exacerbation; B85.2 Pediculosis, unspecified; E11.9 Type 2 diabetes mellitus without complications; I48.91 Unspecified atrial fibrillation; E87.6 Hypokalemia; G35 Multiple sclerosis; I16.1 Hypertensive emergency; Z20.822 Contact with and (suspected) exposure to COVID-19; I11.0 Hypertensive heart disease with heart failure; I25.10 Atherosclerotic heart disease of native coronary artery without angina pectoris; J43.9 Emphysema, unspecified; M79.7 Fibromyalgia; Z88.0 Allergy status to penicillin; Z79.01 Long term (current) use of anticoagulants; Z79.4 Long term (current) use of insulin; Z79.899 Other long term (current) drug therapy; Z86.73 Personal history of transient ischemic attack (TIA), and cerebral infarction without residual deficits; Z98.891 History of uterine scar from previous surgery; Z91.199 Patient's noncompliance with other medical treatment and regimen due to unspecified reason
CPT/HCPCS: 32555; 36415; 71045; 80053; 80061; 80305; 81001; 82948; 83036; 83735; 83880; 84100; 84443; 84484; 85025; 85610; 85730; 87045; 87046; 87081; 87324; 87449; 87502; 87503; 87811; 89055; 93005; 94640; 94760; 96374; 97110; 97162; 97530; 99285; A4615; A6250; A6449; G0378; J0360; J1644; J1815; J1940; J2270; J2919; J3490; J7512

== ENCOUNTER 2024-05-16 10:15 | Emergency (ER) | payer MEDICAID ==
[~2024-05-16] VITALS: Ht 157.5 cm; Wt 65.8 kg
[~2024-05-16 10:15] MED LIST changes: -ALB0.5UD NEB; +AMLO-708 PO; -ATOR20TA PO; +ATOR40TA PO; +CLOP75TA34 PO; -FURO-150 PO; +FURO40TA4 PO; -GUAI600T45 PO; +INSU100I31 SQ; +INSU100I57 SQ; -INSU100V64 SQ; -IPRA3AMP9 IH; +IPRA4AER IH; -LACT1CAP26 PO; -LANTUS SUBCUT; +LISI5TAB22 PO; +METO-395 PO; -METO25TA6 PO; -NOR5T PO
[2024-05-16 10:45] VITALS: BP 149/69; PULSE 88; RESP 18; TEMP 98.2; O2SAT 95
[2024-05-16 10:52] LABS: BASOPHILS # (AUTO) 0.1 X10'3 (0-0.2); BASOPHILS % (AUTO) 0.7 % (0-1); EOSINOPHILS # (AUTO) 0.2 X10'3 (0-0.9); EOSINOPHILS % (AUTO) 1.6 % (0-6); HEMATOCRIT 44.8 % (35.0-45.0); HEMOGLOBIN 14.4 g/dl (12.0-16.0); LYMPHOCYTES % (AUTO) 10.7 % (21-51); MEAN CORPUSCULAR HEMOGLOBIN 27.2 PG (27.0-31.0); MEAN CORPUSCULAR VOLUME 84.9 FL (78-98); MEAN PLATELET VOLUME 9.9 FL (7.4-10.4); MONOCYTES # (AUTO) 0.6 X10'3 (0-0.9); MONOCYTES % (AUTO) 6.5 % (2-12); NEUTROPHILS # (AUTO) 7.7 X10'3 (1.8-7.7); NEUTROPHILS % (AUTO) 80.5 % (42-75); PLATELET COUNT 106 X10'3 (140-440); RED BLOOD COUNT 5.28 X10'6 (4.20-5.60); RED CELL DISTRIBUTION WIDTH 14.7 % (11.5-14.5); WHITE BLOOD COUNT 9.6 X10'3 (4.5-11.0)
[2024-05-16 11:08] LABS: ANION GAP 5 (8-16); BLOOD UREA NITROGEN 38 MG/DL (7-18); BUN/CREATININE RATIO 36.5 (10.0-20.0); CALCIUM 8.6 MG/DL (8.5-10.1); CHLORIDE 98 MMOL/L (99-107); CREATININE 1.04 MG/DL (0.40-0.90); POTASSIUM 4.2 MMOL/L (3.5-5.1); SODIUM 134 MMOL/L (135-145); TOTAL CARBON DIOXIDE 31.1 MMOL/L (24-32); eCRCL 46 ML/MIN; eGFR 54 ML/MIN
[2024-05-16 11:09] LABS: GLUCOSE 482 MG/DL (70-104)
== END 2024-05-16 11:23 | disposition left against medical advice (07) ==
LOC: ER 10:16
DX: M79.672 Pain in left foot (principal); Z88.0 Allergy status to penicillin; Z53.21 Procedure and treatment not carried out due to patient leaving prior to being seen by health care provider
CPT/HCPCS: 36415; 80048; 85025

== ENCOUNTER 2024-07-21 20:47 | Inpatient (IN) | payer MEDICAID ==
[~2024-07-21] VITALS: Ht 157.5 cm; Wt 77.3 kg
--- NOTE | 2024-07-21 21:28 | RADIOLOGY REPORT ---
CHEST RADIOGRAPH Indication: PROTOCOL Technique: Single frontal view of the chest was obtained Comparison: DI CHEST,SINGLE VIEW on DOS: 05/11/24, DI CHEST,SINGLE VIEW on DOS: 05/08/24, DI CHEST,SING LE VIEW on DOS: 05/05/24 Findings/ IMPRESSION: Moderate right-sided pleural effusion with superimposed infection not excluded.
[2024-07-21 21:33] LABS: BASOPHILS # (AUTO) 0.1 X10'3 (0-0.2); EOSINOPHILS # (AUTO) 0.1 X10'3 (0-0.9); EOSINOPHILS % (AUTO) 0.5 % (0-6); HEMATOCRIT 46.3 % (35.0-45.0); HEMOGLOBIN 15.5 g/dl (12.0-16.0); LYMPHOCYTES # (AUTO) 1.2 X10'3 (1.1-4.8); LYMPHOCYTES % (AUTO) 9.6 % (21-51); MEAN CORPUSCULAR HEMOGLOBIN 28.2 PG (27.0-31.0); MEAN CORPUSCULAR HGB CONC 33.4 g/dL (33.0-36.5); MEAN CORPUSCULAR VOLUME 84.2 FL (78-98); MONOCYTES # (AUTO) 0.3 X10'3 (0-0.9); MONOCYTES % (AUTO) 2.3 % (2-12); NEUTROPHILS % (AUTO) 86.6 % (42-75); PLATELET COUNT 139 X10'3 (140-440); RED CELL DISTRIBUTION WIDTH 15.6 % (11.5-14.5); WHITE BLOOD COUNT 12.7 X10'3 (4.5-11.0)
[2024-07-21] MEDS: LORazepam 2 mg/ml vial IV ONE (21:41)
[2024-07-21] MEDS: normal saline 500ml IV soln 500 ML IV ONE (21:41)
[2024-07-21 21:46] LABS: ALBUMIN 2.4 G/DL (3.4-5.0); ANION GAP 7 (8-16); BLOOD UREA NITROGEN 12 MG/DL (7-18); BUN/CREATININE RATIO 11.7 (10.0-20.0); CHLORIDE 101 MMOL/L (99-107); CREATININE 1.03 MG/DL (0.40-0.90); POTASSIUM 4.2 MMOL/L (3.5-5.1); SODIUM 138 MMOL/L (135-145); TOTAL CARBON DIOXIDE 29.9 MMOL/L (24-32); eCRCL 47 ML/MIN; eGFR 55 ML/MIN
[2024-07-21 21:52] LABS: GLUCOSE 234 MG/DL (70-104)
[2024-07-21] MEDS: CefTRIAXone 2gm/NS 100ml IVPB 50 ML IV ONE (22:05)
[2024-07-21] MEDS: hydrALAZINE 20mg/ml inj. IV ONE (22:09)
--- NOTE | 2024-07-21 22:13 | Physician Documentation ---
History of Present Illness ~ Chief Complaint: Urinary Symptoms Stated Complaint: SEPSIS ALERT Time Seen by MD: 21:08 Primary Medical Doctor: DAVID RUIZ Mode of Arrival: EMS, Stretcher HPI History, review of systems, physical examination are limited secondary to patient's clinical condition. This is a 59-year-old female who was brought in from the library for evaluation of feeling ill. The patient is a terrible historian. She answers yes to every patient's questions including whether or not she has headache, chest pain, difficulty breathing, abdominal pain, nausea, vomiting, urinary tract symptoms, she feels dehydrated. It is not clear what is patient's actual chief complaint as she refuses to answer my detail oriented questions. Medication Reconciliation Allergies: Coded Allergies: Penicillins (Verified Allergy, Unknown, HIVES, 07/21/24) TOLERATING CEFEPIME 01/2024 Scheduled Amiodarone Hcl (Cordarone), 200 MG PO DAILY Amlodipine Besylate (Amlodipine Besylate), 1 TAB PO DAILY Apixaban (Eliquis), 1 TAB PO BID Atorvastatin Calcium* (Lipitor*), 1 TAB PO DAILY Budesonide/Formoterol Fumarate (Symbicort 80-4.5 Mcg Inhaler), 2 PUFFS INH Q12H Clopidogrel Bisulfate (Clopidogrel), 75 MG PO DAILY Furosemide 40 MG (Lasix), 1 TAB PO BID Insulin Glargine,Hum.rec.anlog (Basaglar Kwikpen U-100), 25 UNITS SQ QPM Insulin Lispro (Insulin Lispro Tonny Kwikpen), 4 UNIT SQ ACHS Lisinopril (Lisinopril), 5 MG PO DAILY Metoprolol Succinate (Metoprolol Succinate), 1 TAB PO DAILY Scheduled PRN Ipratropium/Albuterol Sulfate (Combivent Respimat Inhal [place]), 2 PUFFS IH Q4H PRN for SOB or wheezing Past Medical History Past Medical History: CVA/TIA/Stroke, Multiple Sclerosis, Congestive Heart Failure, Hypertension, Asthma, COPD, Emphysema, Constipation, Hepatitis C, Diabetes, Fibromyalgia, Cellulitis Past Surgical History: , orthopedic surgeries, tonsillectomy Patient History: FH: skin cancer Maternal Grandmother Alcohol Use: Other Lives In: Homeless, Other Review of Systems ROS Limited as above Physical Exam Vital Signs: Temperature: 100.4, Source: Axillary, Heart Rate: 143, Respiratory Rate: 24, BP: 204/120, Pulse Oximetry: 94, Weight: 77.270 Oxygen Flow Rate: 2.0 Physical Exam GENERAL: Awake, alert, oriented to self and "hospital", GCS 14(v4), no apparent distress, chronically ill appearing, answers questions in a very limited fashi on, does not follows commands appropriately. HEENT: Atraumatic, normocephalic, pupils equal, extraocular muscles intact, sclerae anicteric, mucus membranes very dry, oropharynx is clear, no stridor. NECK: supple, full active range of motion, trachea midline, no thyromegaly, no lymphadenopathy, no JVD. CARDIOVASCULAR: Tachycardic and regular rate/rhythm, no murmurs/gallops/rubs, Pulses are 2+ in all extremities and symmetric. Capillary refill less than 2 seconds. PULMONARY: Nonlabored, good air movement ,no respiratory distress, speaking in full sentences, coarse breath sounds bilaterally, no wheezing, no ronchi, no rales, no accessory muscle use. GASTROINTESTINAL: Soft, non-tender, non-distended, normal active bowel sounds, no organomegaly, no pulsatile masses, no CVA tenderness. NEUROLOGIC: Lucid with altered mental status. Normal facial symmetry. Moves all extremities symmetrically and with purpose. No truncal ataxia. Speech is fluid without evidence of dysarthria or aphasia, no focal deficits appreciated. MUSCULOSKELETAL: There is full range of motion of all extremities. There is no joint pain or joint swelling or joint erythema. There is no muscle pain or tenderness or swelling. EXTREMITIES: warm, well-perfused, no cyanosis, no clubbing, no edema, no acute deformities. Skin: warm, dry, no rashes or lesions, no jaundice, no petechiae orpurpura. No ecchymosis. PSYCHIATRIC: Unable to assess due to patient's non participation Sepsis Screening Cardiology Exam: normal peripheral pulses, regular rate, rhythm, tachycardia Extremities: slow capillary refill Progress Results/Orders Results/Orders Orders - NUNU SEGRUA DO Culture Blood (07/21/24 20:54) Urinalysis, Cult If Indicated (07/21/24 20:54) Chest,Single View (07/21/24 20:54) Monitor (07/21/24 20:54) Oxygen (07/21/24 20:54) Saline Lock (07/21/24 20:54) Straight Cath For Urine Sample (07/21/24 20:54) Stat Ekg (07/21/24 ) Ct Head (07/21/24 22:00) Hs Troponin I W Calculations (07/22/24 00:05) Hs Troponin I W Calculations (07/22/24 01:05) Ct Chest (07/21/24 22:05) Lactic,2hr (07/21/24 22:57) Abg (Arterial Blood Gas) (07/21/24 ) Furosemide Inj (Lasix Inj) (07/21/24 23:50) Page Hospitalist (07/21/24 23:50) Fill Out Med Reconciliation (07/21/24 23:50) Completed Orders - NUNU SEGURA DO Cbc/Diff (07/21/24 20:54) Chest,Single View (07/21/24 20:54) Procalcitonin (07/21/24 20:54) BMP (07/21/24 20:54) Lacticsepsis (07/21/24 20:54) Lorazepam Inj (Ativan Inj) (07/21/24 21:35) Normal Saline 500ml Iv Soln (Sodium Chlo (07/21/24 21:35) Ct Head (07/21/24 22:00) Hydralazine Inj. (Apresoline Inj.) (07/21/24 22:05) CK (07/21/24 22:05) ESR (07/21/24 22:05) C-Reactive Protein (07/21/24 22:05) Pt Inr (07/21/24 22:05) PTT (07/21/24 22:05) Azithromycin/Ns 500mg/250ml (Zithromax/N (07/21/24 22:05) Ceftriaxone 2gm/Ns 100ml Ivpb (Rocephin (07/21/24 22:05) Hs Troponin I W Calculations (07/21/24 22:05) Ammonia (07/21/24 22:05) Ct Chest (07/21/24 22:05) Iohexol 300mg/Ml 100ml Inj. (Omnipaque-3 (07/21/24 22:18) Ondansetron Inj. (Zofran 4mg/2ml Vial) (07/21/24 22:40) Naloxone 2mg/2ml Inj (Narcan 2mg/2ml Inj (07/21/24 22:37) Magnesium Sulf-Water 2g/50ml (Magnesium (07/21/24 22:40) PBNP (07/21/24 21:09) Acetaminophen 1,000mg/100ml Iv (Ofirmev (07/21/24 23:30) Medications Received in ER Medications (Trade) Dose Ordered Sig/Amandeep Route PRN Reason Start Time Stop Time Status Last Admin Dose Admin (Ativan inj) 1 mg ONCE ONCE IV 07/21/24 21:35 07/21/24 21:36 DC 07/21/24 21:41 1 MG Sodium Chloride 500 ml @ 1,000 mls/hr ONCE ONCE IV 07/21/24 21:35 07/21/24 22:04 DC 07/21/24 21:41 1,000 MLS/HR (Apresoline inj.) 10 mg ONCE ONCE IV 07/21/24 22:05 07/21/24 22:06 DC 07/21/24 22:09 10 MG Azithromycin 250 ml @ 250 mls/hr ONCE ONCE IV 07/21/24 22:05 07/21/24 23:04 DC 07/21/24 23:13 250 MLS/HR (Zofran 4mg/2ml vial) 4 mg ONCE ONCE IV 07/21/24 22:40 07/21/24 22:41 DC 07/21/24 22:42 4 MG (Narcan 2mg/2ml inj) 2 mg ONCE STAT IV 07/21/24 22:37 07/21/24 22:39 DC 07/21/24 22:42 2 MG Magnesium Sulfate 50 ml @ 100 mls/hr ONCE ONCE IV 07/21/24 22:40 07/21/24 23:09 DC 07/21/24 22:46 100 MLS/HR Vital Signs 07/21/24 07/21/24 07/21/24 07/21/24 20:50 20:56 21:26 22:00 Temp 100.4 100.4 Pulse 153 143 145 Resp 24 26 24 30 B/P (MAP) 195/92 204/120 (148) 204/119 (147) Pulse Ox 94 94 92 O2 Flow Rate 2.0 2.0 2.0 07/21/24 07/21/24 07/21/24 07/21/24 22:09 22:30 23:00 23:11 Pulse 134 135 136 Resp 27 36 B/P (MAP) 194/111 (138) 153/87 (109) Pulse Ox 92 92 92 O2 Delivery Venturi Mask+ O2 Flow Rate 2.0 4.0 6 FiO2 N/A 07/21/24 07/21/24 23:11 23:27 Temp 102.0 Pulse 136 134 Resp 30 30 B/P (MAP) 153/87 (109) 153/87 (109) Pulse Ox 92 92 O2 Flow Rate 6.0 5.0 Laboratory Tests Test 07/21/24 21:09 07/21/24 23:20 07/21/24 23:28 White Blood Count 12.7 H Red Blood Count 5.50 Hemoglobin 15.5 Hematocrit 46.3 H Mean Corpuscular Volume 84.2 Mean Corpuscular Hemoglobin 28.2 Mean Corpuscular Hemoglobin Concent 33.4 Red Cell Distribution Width 15.6 H Platelet Count 139 L Mean Platelet Volume 9.0 Neutrophils (%) (Auto) 86.6 H Lymphocytes (%) (Auto) 9.6 L Monocytes (%) (Auto) 2.3 Eosinophils (%) (Auto) 0.5 Basophils (%) (Auto) 1.0 Neutrophils # (Auto) 11.0 H Lymphocytes # (Auto) 1.2 Monocytes # (Auto) 0.3 Eosinophils # (Auto) 0.1 Basophils # (Auto) 0.1 CBC Comment Erythrocyte Sedimentation Rate 51 H Prothrombin Time 11.1 INR International Normalized Ratio 1.1 Activated Partial Thromboplast Time 26 Coagulation Comments Sodium Level 138 Potassium Level 4.2 Chloride Level 101 Carbon Dioxide Level 29.9 Anion Gap 7 L Blood Urea Nitrogen 12 Creatinine 1.03 H Estimated GFR/1.73 m2 55 BUN/Creatinine Ratio 11.7 Glucose Level 234 H Lactic Acid Level 2.2 H Calcium Level 9.0 Total Creatine Kinase 126 Troponin I High Sensitivity 47 C-Reactive Protein 0.38 Pro-B-Type Natriuretic Peptide 5220 H Albumin 2.4 L Procalcitonin < 0.05 Chemistry Comments Ammonia < 10 L Blood Gas Specimen Type Arterial Blood Gas Puncture Site Rr O2 Saturation 90.8 L Arterial Blood pH (Temp corrected) 7.430 Arterial Blood pCO2 (Temp correct) 35.2 Arterial Blood pO2 (Temp corrected) 67.7 L Arterial Blood PO2/FiO2 Ratio 1.43 Arterial Blood HCO3 22.3 Arterial Blood Base Excess -0.4 Arterial Blood Oxyhemoglobin 88.9 L Arterial Blood Carboxyhemoglobin 2.1 H Arterial Blood Methemoglobin 0.0 Arterial Blood Deoxyhemoglobin 9.0 H Theron Test Positive Blood Gas Hemoglobin 15.3 Blood Gas Temperature 39.4 Blood Gas Liter Flow 5 Blood Gas Modality Nasal cannula FiO2 40.0 Microbiology Date/Time Source Procedure Growth Status 07/21/24 21:42 Blood Arm Right Blood Culture - Preliminary NEGATIVE (LESS THAN 24 HOURS) Resulted EKG/XRAY/CT/US/VASC/MRI EKG : Additional Comment EKG was obtained and interpreted by myself showing what appears to be sinus tachycardia, rate of 141, wide complex with a right bundle, prolonged QT of 570, with machine read of acute OR, I do not believe it to be correct. Medical Decision Making Findings Facility Status: ED Holds, [facility] process The plan was discussed with the patient, who demonstrates clear understanding of the plan and is in agreement with the plan unless otherwise noted in the chart. All questions have been answered, all concerns were addressed unless otherwise documented. I was available throughout their ED stay for frequent reassessment and questions. Differential Diagnoses (considered and possible or likely): [Dehydration, heat stroke, heat exhaustion, electrolyte derangement, urinary tract infection, pneumonia, occult bacteremia, CVA, TIA, partial seizure, complex migraine, volitional non participation, alcohol intoxication, drug toxidrome] ??Differential Diagnoses (considered and unlikely, not requiring evaluation currently): [No evidence of trauma] MDM Data Please see [facility] for the following: Independent Historians and external Records Review. Historian: Limited information from patient as noted above Independent Historians: ?[EMS], record review Medication Management: [Reviewed medication list] Social History and determinants: [Reviewed] Please see the body of the note for the following: Any independent interpretations of ECG, imaging studies. All vitals signs/haemodynamics, ordered tests were independently reviewed and interpreted by myself. Nursing triage complaint and vitals reviewed, additional nursing notes were reviewed as available and I agree unless otherwise noted or documented in contradiction in the chart Vital Signs: Independently reviewed Labs: Independently interpreted Imaging: Independently interpreted Old Medical Records: Independently reviewed, see HPI for relevant summary and information Pulse Oximetry: [92% on 5 L] interpreted as [hypoxia] by me [Truckload Checker: Tachycardic Rate, Regular rhythm, wide complex, sinus tachycardia] reviewed and interpreted by me] Additionally notably showing: [Hemodynamics reviewed. The patient is febrile, markedly tachycardic, improved with little bit of fluid and antipyretics. Markedly hypotensive, improved with the Lasix and hydralazine. No evidence of hypotension. Laboratory studies reviewed. CBC shows mild leukocytosis of the 86% neutrophilic predominance. Blood gas is unremarkable, no evidence of hypercapnia. Chemistry notable for elevated glucose and BNP is markedly elevated. Coagulation panel is unremarkable. Chest x-ray was obtained showing right-sided pleural effusion with a concern for superimposed infection. Head CT showed no acute intracranial abnormality. CT of the chest was obtained showing large right pleural effusion.] Tests considered but not ordered include: [Not applicable] Social Determinants of Health Impact: Patient was [facility] [place] to healthcare due to below par ratio of patient to medical providers. [] Comorbid Conditions Impacting Present Evaluation and Care/Treatment: [Multiple including CHF, homelessness, see list] Management Discussions with other Healthcare Providers: [Hospitalist regarding admission] Treatment and Disposition Medication Management (Given or considered): []. See EMR for details Consideration for Hospitalization/Escalation/Deescalation of Care: Admission for observation has been considered, and is necessary for further management of her hypoxia, altered mental status, sepsis ?ED Course:?[Patient is febrile, tachycardic, meets criteria for sepsis. Received broad-spectrum antibiotics. Received gentle fluids which were limited given her likely congestive heart failure. Her mental status somewhat improved. She continues to protect her airway.] ?Shared decision making:?[] Code status:?FULL Please see the full Electronic Medical Record for full details of nursing documentation, medications list, other records of complete past medical history and conditions, vital signs, laboratory studies, and any radiologic study interpretations by radiologists. Portions of this note were completed using [employer] dictation software and as a result there may exist minor errors in spelling. I have reviewed elements of past family and social history and agree as included in note. Departure Disposition: 09 ADMITTED INPATIENT Admitted to Inpatient Unit: to hospitalist Impression: Primary Impression: Sepsis Additional Impressions: Inappropriate sinus tachycardia CHF exacerbation Acute hypoxic respiratory failure Hypertensive emergency Referrals: NO PRIMARY CARE PROVIDER (PCP) Critical Care Note Critical Care Note CRITICAL CARE TIME: [40 ] minutes Treatments/Evaluations: Close monitoring and treatment of unstable vital signs, cardiorespiratory, and neurologic status, while maintaining tight balance of f luid, respiratory, and cardiac interventions. This time includes discussing the case with the patient and the patients family. This time does not include all procedures stated elsewhere in this record. This time also includes reviewing old records, labs and radiological studies. This time includes examining and re- examining the patient. Additionally, this time also includes arranging care with admitting and consulting physicians. Signature Scribe Signature: No scribe Attestation: This note accurately reflects clinical decisions, work performed by myself, DO IMELDA Tavarez NICHOLAS M DO Jul 21, 2024 22:13
[2024-07-21] MEDS ORDERED: iohexol 300mg/ml 100ml inj. ONE (22:18)
[2024-07-21 22:27] LABS: APTT 26 SECONDS (22-32); INR 1.1 INR; PROTHROMBIN TIME 11.1 SECONDS (9.0-12.0)
[2024-07-21 22:28] LABS: C-REACTIVE PROTEIN 0.38 MG/DL (0.0-0.5); CREATINE KINASE 126 U/L (26-192)
[2024-07-21] MEDS: ondansetron/PF 4mg/2ml inj IV ONE (22:42)
[2024-07-21] MEDS: naloxone 2mg/2ml inj IV STA (22:42)
[2024-07-21] MEDS: magnesium sulf-water 2g/50mL 50 ML IV ONE (22:46)
[2024-07-21] MEDS: azithromycin/NS 500mg/250ml 250 ML IV ONE (23:13)
--- NOTE | 2024-07-21 23:20 | RADIOLOGY REPORT ---
EXAM: CT CT HEAD INDICATION: aloc TECHNIQUE: CT of the head without intravenous contrast. Radiation Dose : 1. Head: CT Dose: CTDI volume is 56 mGy. Dose-length product is 1048 mGy*cm The dose indicators for CT are the volume Computed Tomography (CT) Dose Index (CTDIvol) and the Dose Length Product (DLP), and are measured in units of mGy and mGy-cm, respectively. These indicators are not patient dose, but values generated from the CT scanner acquisition factors. The report includes radiation exposure data for exposures received during this examination. COMPARISON: CT CT HEAD on DOS: 01/13/24 FINDINGS: There is no evidence of acute intracranial hemorrhage, extra-axial collection, mass effect, midline s hift, herniation or hydrocephalus. The ventricles, sulci and cisterns are age appropriate. The galindo-white differentiation is intact. Patchy periventricular and subcortical white matter hypoattenuation is nonspecific but may be related to small vessel ischemic disease. The visualized paranasal sinuses and mastoid air cells are clear. The surrounding soft tissues and osseous structures are unremarkable. IMPRESSION: No acute intracranial abnormality.
--- NOTE | 2024-07-21 23:29 | RADIOLOGY REPORT ---
Procedure: CT CT CHEST W/ IV CONTRAST Reason for study/Clinical History: sob, hypoxia Comparison Study: CT CT CHEST on DOS: 01/17/24 Exam Date: 07/21/2024 10:20 PM Radiation Dose Information: CT Dose: CTDI volume is 16.73 mGy. Dose-length product is 660.21 mGy*cm Contrast: Type of contrast: Omnipaque 300 Contrast inject: 100 mL TECHNIQUE: After the uneventful administration of intravenous contrast intravenously, CT imaging was performed through the chest. Coronal and sagittal reformations were performed by the technologist. FINDINGS: Lower Neck: Visualized portions of the thyroid gland are unremarkable. Aorta and Vasculature: Normal caliber of thoracic aorta. Lymph Nodes: No enlarged intrathoracic lymph nodes. Mediastinum: Heart size is normal. There is no pericardial effusion. The esophagus is unremarkable. Lungs: Large right pleural effusion with compressive atelectasis. Trace left pleural effusion noted. No evidence of pneumothorax. Musculoskeletal: No acute osseous abnormality. Upper abdomen: Limited portions of the upper abdomen are unremarkable. IMPRESSION: 1. Large right and trace left pleural effusions. 2. All CT scans at this medical facility are performed using dose modulation techniques as appropriat e to a performed exam including the following: Automated exposure control was utilized; adjustment of the MA and/or KV according to patient size; and use of iterative reconstruction technique.
[2024-07-21 23:31] LABS: ABG BASE EXCESS -0.4 mmol/L (-2.0-3.0); ABG HCO3 22.3 mmol/L (21.0-28.0); ABG OXYGEN SATURATION 90.8 % (94.0-98.0); ABG PCO2 (T) 35.2 mmHg (32.0-45.0); ABG PO2 (T) 67.7 mmHg (83.0-108.0); ALLEN'S TEST POSITIVE; FCOHb 2.1 % (0.5-1.5); FLOW 5 L/min; FO2Hb 88.9 % (94.0-98.0); MODE NASAL CANNULA; PATIENT TEMPERATURE 39.4; TOTAL HEMOGLOBIN 15.3 G/dl (12.0-16.0)
[2024-07-21 23:40] LABS: PRO BRAIN NATRIURETIC PEPTIDE 5220 PG/ML (0-125)
[2024-07-21] MEDS: acetaminophen 1,000mg/100ml IV 100 ML IV ONE (23:58)
[2024-07-22] VITALS (15 sets, daily range): BP systolic 104–112; BP diastolic 58–60; PULSE 82–99; RESP 18–28; TEMP 97.3–98.1; O2SAT 85–95
[2024-07-22 00:19] LABS: BILIRUBIN,URINE NEGATIVE (Neg); CLARITY,URINE CLEAR (Clear); COLOR,URINE YELLOW (Yellow); GLUCOSE, URINE 500 mg/dl (Neg); KETONES,URINE NEGATIVE (Neg); LEUKOCYTE ESTERASE ,URINE NEGATIVE (Neg); NITRITES, URINE NEGATIVE (Neg); OCCULT BLOOD,URINE MODERATE (Neg); PROTEIN,URINE >=300 mg/dl (Neg)
[2024-07-22] MEDS: furosemide 40mg/4ml inj IV ONE (00:19)
[2024-07-22 00:20] LABS: UA COLLECTION TYPE NON-SPECIFIED
[2024-07-22 00:27] LABS: MUCUS STRANDS FEW /LPF (Neg); SQUAMOUS EPITHELIAL CELL,UR FEW /LPF (FEW)
[2024-07-22 00:31] LABS: BACTERIA,URINE 2+ /HPF (Neg); HYALINE CASTS 0-3 /LPF (NEGATIVE)
[2024-07-22] MEDS ORDERED: UNABLE TO OBTAIN (00:32)
[2024-07-22] MEDS ORDERED: PERFLUTREN PROTEIN-A MICROSPHR (Optison) 0.22 MG/ML 3ML VIAL IV ONE (00:40)
[2024-07-22] MEDS ORDERED: mag hydrox/Alum hydrox/simeth 30ml oral suspension PO PRN (00:40)
[2024-07-22] MEDS ORDERED: magnesium sulf-water 2g/50mL 50 ML IV PRN (00:40)
[2024-07-22] MEDS ORDERED: magnesium sulf-water 4G/100mL 100 ML IV PRN (00:40)
[2024-07-22] MEDS ORDERED: potassium Cl 40MEQ/1/2NS 520ml 520 ML IV PRN (00:40)
[2024-07-22] MEDS ORDERED: magnesium hydroxide 30ml (MOM) UD suspension PO PRN (00:40)
[2024-07-22] MEDS ORDERED: potassium Cl 20 mEq SR tablet PO PRN (00:40)
[2024-07-22] MEDS ORDERED: acetaminophen 325mg tablet PO PRN (00:40)
[2024-07-22] MEDS ORDERED: magnesium Cl slow-release 64mg tablet PO PRN (00:40)
[2024-07-22] MEDS: metoprolol tartrate 1mg/ml inj IV SCH (00:45)
[2024-07-22] MEDS: CefTRIAXone 2gm/D5W 50ml BAG 50 ML IV ONE (00:53)
[2024-07-22 01:09] LABS: URINE AMPHETAMINE SCREEN POSITIVE (Neg); URINE BARBITUATE SCREEN NEGATIVE (Neg); URINE BENZODIAZEPINES SCREEN NEGATIVE (Neg); URINE CANNABINOID SCREEN NEGATIVE (Neg); URINE COCAINE SCREEN NEGATIVE (Neg); URINE METHADONE SCREEN NEGATIVE (Neg); URINE OPIATE SCREEN NEGATIVE (Neg); URINE PHENCYCLIDINE SCREEN NEGATIVE (Neg)
[2024-07-22] MEDS ORDERED: ipratropium/albuterol 3ml nebule NEB PRN (01:45)
--- NOTE | 2024-07-22 01:49 | HISTORY AND PHYSICAL-Residence ---
History & Physical Providers to CC Resident Creating Document: ARLENE BOWEN, RES CC: CARLOS ROACH MD ~ History of Present Illness Primary Medical Doctor: DAVID RUIZ Reason for Admit\Complaint: Brought in by EMS in an obtunded state History of Present Illness A 59-year-old female with past medical history CHF, COPD, insulin-dependent DM, HTN was brought in by the EMS as she was found shivering and altered outside the [facility]aker per the ED physician. Patient is obtunded, not responding to name or pain. No further history could be obtained. Per the ED physician, patient became a little conscious when she was given Narcan but got back to being obtunded. Allergies: Coded Allergies: Penicillins (Verified Allergy, Unknown, HIVES, 07/21/24) TOLERATING CEFEPIME 01/2024 Home Medications Home Medications Active Combivent Respimat Inhal [place] (Albuterol/Ipratropium) 20 Mcg-100 Mcg/Actuation Aer.w.adap 2 Puffs IH Q4H PRN Insulin Lispro Tonny Kwikpen (Insulin Lispro) 100 Unit/Ml Ins.pen.hf 4 Unit SQ ACHS Basaglar Kwikpen U-100 (Insulin Glargine,Hum.rec.anlog) 100 Unit/Ml (3 Ml) Insuln.pen 25 Units SQ QPM Metoprolol Succinate 25 Mg Tab.sr.24h 1 Tab PO DAILY 30 Days Lisinopril 5 Mg Tablet 5 Mg PO DAILY Clopidogrel (Clopidogrel Bisulfate) 75 Mg Tablet 75 Mg PO DAILY Do not stop medication unless instructed by prescriber. Symbicort 80-4.5 Mcg Inhaler (Budesonide/Formoterol Fumarate) 80 Mcg-4.5 Mcg/Actuation Hfa.aer.ad 2 Puffs INH Q12H 30 Days Amlodipine Besylate 10 Mg Tablet 1 Tab PO DAILY 30 Days Lasix (Furosemide) 40 Mg Tablet 1 Tab PO BID Lipitor* (Atorvastatin Calcium) 40 Mg Tablet 1 Tab PO DAILY 30 Days Cordarone (Amiodarone HCl) 200 Mg Tablet 200 Mg PO DAILY 30 Days Eliquis (Apixaban) 5 Mg Tablet 1 Tab PO BID 30 Days Reported Unable to Obtain Medications (Non-Formulary Medication) Each Past Medical History Past Medical History Per previous records CAD, s/p angioplasty with stenting of the right SFA on April 11, 2023 CHF AFib HTN DM insulin dependent COPD Substance abuse History of recurrent right pleural effusions CVA/TIA Multiple sclerosis Hep C Fibromyalgia History of bilateral feet infection due to frostbite Past Surgical History Surgical History Comment Per previous records: Orthopedic surgeries Tonsillectomy Family History Family History: FH: skin cancer Maternal Grandmother Past Social History Social History Comment Per previous records: Patient was previously discharged to [facility] during her last admission in May. Ambulate using wheelchair Denies smoking, quit three years ago prior to that she was smoking 1-2 packs of cigarettes a day for the last 10-15 years Denies alcohol or drug abuse, with the patient was positive for methamphetamine. Alcohol Use: Other Lives In: Homeless, Other ROS ROS Could not be elicited Exam Vitals: Vital Signs Date Time Temp Pulse Resp B/P (MAP) Pulse Ox O2 Delivery O2 Flow Rate FiO2 07/22/24 01:15 101.2 92 36 118/68 (85) 93 6.0 07/21/24 23:11 Venturi Mask+ N/A General: General: Obtunded, nonresponsive to name and pain HEENT: PERRLA, no icterus, pallor, lymphadenopathy, carotid bruit Respiratory system: Bilateral vesicular breath sounds heard, decreased breath sounds on the right side, crackles present in the posterior lung bases CVS: S1-S2 heard, no murmurs/rubs/gallop GI: Soft, nontender, no organomegaly, no guarding/rigidity, bowel sounds present Neuro: Could not be elicited Extremities: Bilateral 2+ pitting edema present, ulcers on the right feet Skin: Warm and dry Diagnostic Data Last Recorded Lab Results: [id number]/21/[id number] Diagnostic Data: Laboratory Tests Test 07/21/24 21:09 Prothrombin Time 11.1 SECONDS (9.0-12.0) INR International Normalized Ratio 1.1 INR Activated Partial Thromboplast Time 26 SECONDS (22-32) Coagulation Comments Advance Care Planning Advanced Care plannin - 30 Minutes Additional Plan Assessment: A 59-year-old female with multiple medical comorbidities was brought in by the EMS in view of altered mental status, found obtunded outside the charge. Patient is admitted for the evaluation and management of acute metabolic encephalopathy, acute hypoxemic respiratory failure. Plan: Acute metabolic encephalopathy 2/2 Toxic, can not exclude septic U tox positive for amphetamines CT head: No acute intracranial abnormality. Normal ammonia levels Fall precautions, aspiration precaution Acute hypoxemic respiratory failure 2/2 COPD exacerbation Acute on chronic heart failure with preserved ejection fraction, EF: 60 Right-sided pleural effusion (recurrent) with probably aspiration pneumonia CT chest: Large right and trace left pleural effusions. Echo (03/23/24): Moderate concentric hypertrophy of the left ventricle, EF: 60%, RVSP: 36 mmHg Elevated proBNP, ABG: Normal Currently on 6 L nasal cannula Started on IV Zosyn, IV methylprednisolone 40 mg q.6h DuoNeb q.2h p.r.n., q.4h scheduled, incentive spirometry Patient received one dose of IV Lasix 40 mg in the ED, continue IV Lasix 40 mg b.i.d., re-evaluate every day DC the patient continues to require Lasix Monitor I/O Recommend Optimization with GDMT Recommend pleural fluid analysis and thoracocentesis for improvement in respiratory status Sepsis, POA Secondary to the above Elevated lactic acid Continue antibiotics as per above Follow up with blood cultures Fever management p.r.n. SVT with aberrancy, prolonged QTC, POA History of chronic AFib EKG on arrival showed RBBB with LAFB, LAD, QTC: 572, QRS: 162 with rS waves in lead two IV metoprolol 5 mg Q 15 minutes Restart home meds after reconciliation Hypertensive urgency History of HTN Troponin elevation probably secondary to the above Hydralazine p.r.n. 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 Diet: NPO DVT prophylaxis: Heparin Disposition: Admit to PCU, continue to monitor telemetry Arlene Bowen MD Internal Medicine, PGY 1 Patient seen and evaluated using HIPPA complaint AV device Discussed with the resident Acute encephalopathy in setting of met use. Noted to have responded to naloxone initially ?4mg but became somnolent again Repeat low dose of nloxone 0.4 while examining her did not improve the situation and uds is negative for opiod Slight tachpnea with right sided large effusion UTI Transfer to ICU, capnography, monitor airway closely as the toxin metabolizes, current Abg is okay Will need right sided thoracenthesis HFNC for work of breathing CCT 60mins Carlos Roach MD Date of Service: Jul 22, 2024 Billing Provider: CARLOS ROACH MD, SIVA, RES Jul 22, 2024 01:49 CARLOS ROACH MD Jul 22, 2024 03:43
[2024-07-22] MEDS ORDERED: dextrose 50%-water 50ml dispensing syringe IV PRN ×2 (02:10)
[2024-07-22] MEDS ORDERED: glucagon, human recombinant 1mg kit SUBCUT PRN (02:10)
[2024-07-22] MEDS ORDERED: DEXTROSE 15 GM of carb/4 tabs (each vial/BOTTLE has 4 tablets) PO PRN (02:10)
[2024-07-22 02:16] LABS: MAGNESIUM 1.7 MG/DL (1.5-2.4); POTASSIUM 3.2 MMOL/L (3.5-5.1)
[2024-07-22] MEDS: methylPREDNISolone sod succ/PF 40mg inj. IV SCH (03:20)
[2024-07-22] MEDS: naloxone 2mg/2ml inj IV STA (03:21)
[2024-07-22] MEDS: ipratropium/albuterol 3ml nebule NEB SCH (03:25)
[2024-07-22] MEDS: naloxone 0.4 mg/ml inj IV ONE (03:26)
[2024-07-22] MEDS: docusate sod 100mg capsule PO SCH (07:13)
[2024-07-22] MEDS: INSULIN LISPRO 100 UNIT/ML INSULN.PEN MULTI-DOSE SQ SCH (07:45)
[2024-07-22] MEDS: furosemide 40mg/4ml inj IV SCH (07:47)
[2024-07-22] MEDS: heparin, porcine 5000 units/ml vial SQ SCH (07:48)
[2024-07-22] MEDS: CEFEPIME 2gm in D5W 50mL 50 ML IV SCH (07:48)
[2024-07-22] MEDS ORDERED: piperacillin/tazo 4.5gm/100ml 100 ML IV SCH (08:00)
[2024-07-22] MEDS: K and/or MAG REPLACEMENT MC SCH (08:10)
[2024-07-22] MEDS: LidoCAINE 2% Topical Jelly 11mL syringe (UROJET) TOP ONE (13:39)
[2024-07-22] MEDS: insulin glargine (Lantus) pen - multi-dose SQ SCH (21:05)
[2024-07-22] MEDS: potassium Cl 20 mEq SR tablet PO PRN (22:52)
[2024-07-23] VITALS (17 sets, daily range): BP systolic 139–166; BP diastolic 77–104; PULSE 55–103; RESP 14–25; TEMP 97.4–97.7; O2SAT 93–98
--- NOTE | 2024-07-23 06:30 | ELECTROCARDIOGRAPH REPORT ---
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
[2024-07-23 07:57] LABS: BASOPHILS # (AUTO) 0.1 X10'3 (0-0.2); BASOPHILS % (AUTO) 0.3 % (0-1); EOSINOPHILS % (AUTO) 0 % (0-6); HEMATOCRIT 40.5 % (35.0-45.0); HEMOGLOBIN 13.3 g/dl (12.0-16.0); LYMPHOCYTES # (AUTO) 0.6 X10'3 (1.1-4.8); LYMPHOCYTES % (AUTO) 3.3 % (21-51); MEAN CORPUSCULAR HEMOGLOBIN 28.1 PG (27.0-31.0); MEAN CORPUSCULAR HGB CONC 32.8 g/dL (33.0-36.5); MEAN CORPUSCULAR VOLUME 85.7 FL (78-98); MEAN PLATELET VOLUME 10.1 FL (7.4-10.4); MONOCYTES # (AUTO) 0.7 X10'3 (0-0.9); MONOCYTES % (AUTO) 3.7 % (2-12); NEUTROPHILS # (AUTO) 16.5 X10'3 (1.8-7.7); NEUTROPHILS % (AUTO) 92.7 % (42-75); PLATELET COUNT 87 X10'3 (140-440); RED BLOOD COUNT 4.73 X10'6 (4.20-5.60); RED CELL DISTRIBUTION WIDTH 15.7 % (11.5-14.5); WHITE BLOOD COUNT 17.8 X10'3 (4.5-11.0)
[2024-07-23 08:17] LABS: ALBUMIN 1.6 G/DL (3.4-5.0); ANION GAP 9 (8-16); BLOOD UREA NITROGEN 30 MG/DL (7-18); BUN/CREATININE RATIO 23.1 (10.0-20.0); CALCIUM 8.2 MG/DL (8.5-10.1); CHLORIDE 100 MMOL/L (99-107); CHOL/HDL RATIO 2.5 (0.00-4.99); CHOLESTEROL 205 MG/DL (0-200); GLUCOSE 371 MG/DL (70-104); HDL CHOLESTEROL 82 MG/DL (35-60); LDL CHOLESTEROL 93 MG/DL (50-100); POTASSIUM 4.5 MMOL/L (3.5-5.1); SODIUM 135 MMOL/L (135-145); TOTAL CARBON DIOXIDE 25.8 MMOL/L (24-32); TRIGLYCERIDES 93 MG/DL (20-135); eCRCL 37 ML/MIN; eGFR 42 ML/MIN
--- NOTE | 2024-07-23 11:22 | PROCEDURE NOTE CC ---
Procedure Note CC Providers to CC ~ Procedure Name: Thoracentesis Description: Indication: R Pleural Effusion Time Out: Done Consent: Pt Site: Right Anesthesia: Local Technique: US guided Fluid: 1050ml clear yellowish. Sample sent to lab Complication: None EBL: 0ml Sepsis Screening Reassessment Date: Jul 23, 2024 LUCHO COLEMAN MD Jul 23, 2024 11:22
[2024-07-23 11:46] LABS: GLUCOSE,BODY FLUID 346 MG/DL; LDH,BODY FLUID 75 U/L
[2024-07-23 11:59] LABS: TOTAL PROTEIN,BODY FLUID < 2.0 G/DL
[2024-07-23 12:08] LABS: BF RBC COUNT 305 /CU MM; BF WBC COUNT 385 /CU MM (0-1000); BFAPPEAR HAZY; BFCOLOR YELLOW; BFSOURCE RIGHT PLEURAL FLD; BFVOLUME 47 ML; LYMPHOCYTES,BODY FLUID 62 %; MONOCYTES,BODY FLUID 19 %; NEUTROPHILS,BODY FLUID 19 %
[2024-07-23 12:09] LABS: BFSOURCE RIGHT PLEURAL FLD
--- NOTE | 2024-07-23 12:20 | RADIOLOGY REPORT ---
PROCEDURE: ULTRASOUND GUIDED THORACENTESIS USING TEMPORARY CATHETER HISTORY: 59 Female with SOB requiring thoracentesis. DOCUMENTATION: Informed consent was obtained and a procedural time out was performed. TECHNIQUE: Ultrasound was used to locate the RIGHT pleural fluid collection with an image archived i n the PACS. The skin over the RIGHT posterior hemithorax was sterilely prepped, draped, and infiltra jordy with 1% lidocaine. Under real time ultrasound guidance, the RIGHT pleural space was accessed wit h a 19-gauge Yueh needle and connected to Vacutainers. The Yueh catheter was advanced, the needle was removed and the temporary catheter was advanced and connected to the Vacutainer. Approximately 1.05 liters of STRAW COLORED fluid was removed. The temporary catheter was removed and sterile dressings were applied. FINDINGS: Ultrasound demonstrates a MODERATE RIGHT pleural effusion. Imaging confirms the needle tip within the fluid. IMPRESSION: SUCCESSFUL ULTRASOUND GUIDED THORACENTESIS. Procedure by Dr. Rich
[2024-07-23] MEDS: INSULIN LISPRO 100 UNIT/ML INSULN.PEN MULTI-DOSE SQ SCH ×2 (13:12→17:39)
--- NOTE | 2024-07-23 19:24 | PROGRESS NOTE ---
Daily Progress Note Providers to CC ~ Antibiotic Timeout Antibiotic Ordered?: Yes Subjective Patient was seen in presence of nursing staff. As per patient she is wheelchair-bound and homeless. She had thoracocentesis done today. Oxygenation improved and she was saturating 93 on room air Objective Vital Signs Date Time Temp Pulse Resp B/P (MAP) Pulse Ox O2 Delivery O2 Flow Rate FiO2 07/23/24 19:09 101 16 93 Room Air* 0 21 07/23/24 15:43 97.7 162/89 (113) Result Diagram: 07/23/24 0744 07/23/24 0744 General-patient not in any acute distress, alert awake chronically ill- appearing HEENT-atraumatic normocephalic, neck supple without elevated JVD, no thyromegaly or carotid bruit. No lymphadenopathy bilaterally. Eyes-no icterus or pallor seen in eyes Chest-very mild wheezing and decreased lung sounds over lung bases bilaterally t o auscultation breathing nonlabored no tachypnea, Heart-S1-S2 normal, regular heart rate no murmur Abdomen bowel sounds positive on auscultation, soft nondistended nontender no guarding, no rigidity Skin no active skin rash Neurology-grossly intact, nonfocal alert awake Extremity- 1+ pedal edema bilaterally Psychiatry - patient is not confused or agitated cooperated during physical examination Coagulation Studies Laboratory Tests Test 07/21/24 21:09 Prothrombin Time 11.1 SECONDS (9.0-12.0) INR International Normalized Ratio 1.1 INR Activated Partial Thromboplast Time 26 SECONDS (22-32) Coagulation Comments Problem\Assessment\Plan A 59-year-old female with multiple medical comorbidities was brought in by the EMS in view of altered mental status, found obtunded outside the charge. Patient is admitted for the evaluation and management of acute metabolic encephalopathy, acute hypoxemic respiratory failure. Plan: Acute metabolic encephalopathy 2/2 Toxic, can not exclude septic U tox positive for amphetamines CT head: No acute intracranial abnormality. Normal ammonia levels Fall precautions, aspiration precaution to continue Acute hypoxemic respiratory failure 2/2 COPD exacerbation Acute on chronic heart failure with preserved ejection fraction, EF: 60 Right-sided pleural effusion (recurrent) with probably aspiration pneumonia CT chest: Large right and trace left pleural effusions. Echo (03/23/24): Moderate concentric hypertrophy of the left ventricle, EF: 60%, RVSP: 36 mmHg Elevated proBNP, ABG: Normal on IV Zosyn, tapered IV methylprednisolone DuoNeb q.2h p.r.n., q.4h scheduled, incentive spirometry continue IV Lasix 40 mg b.i.d., re-evaluate every day DC the patient continues to require Lasix Monitor I/O We will do home medication reconciliation once updated by nursing staff s/p thoracocentesis for right pleural effusion Sepsis, POA Secondary to the above Elevated lactic acid Continue antibiotics as per above will Follow up with blood cultures Fever management p.r.n. SVT with aberrancy, prolonged QTC, POA History of chronic AFib EKG on arrival showed RBBB with LAFB, LAD, QTC: 572, QRS: 162 with rS waves in lead two Hypertensive emergency with the elevated troponin History of HTN Hydralazine p.r.n. 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 Diet: NPO DVT prophylaxis: Heparin Patient's current condition is guarded we will continue to follow patient in AM . Date of Service: Jul 23, 2024 Billing Provider: ALTAGRACIA PHELPS MD Common Visit Codes: [id number] INP/OBS CARE(HIGH) ALTAGRACIA PHELPS MD Jul 23, 2024 19:24
[2024-07-23] MEDS: insulin glargine (Lantus) pen - multi-dose SQ SCH (21:19)
[2024-07-23] MEDS: methylPREDNISolone sod succ/PF 40mg inj. IV SCH (21:20)
[2024-07-24] VITALS (14 sets, daily range): BP systolic 140–174; BP diastolic 80–103; PULSE 90–107; RESP 17–28; TEMP 97.1–97.7; O2SAT 94–100
[2024-07-24 06:06] LABS: BASOPHILS # (AUTO) 0.1 X10'3 (0-0.2); BASOPHILS % (AUTO) 0.4 % (0-1); EOSINOPHILS % (AUTO) 0 % (0-6); HEMATOCRIT 40.5 % (35.0-45.0); HEMOGLOBIN 13.3 g/dl (12.0-16.0); LYMPHOCYTES # (AUTO) 0.7 X10'3 (1.1-4.8); LYMPHOCYTES % (AUTO) 4.5 % (21-51); MEAN CORPUSCULAR HGB CONC 32.9 g/dL (33.0-36.5); MEAN CORPUSCULAR VOLUME 85.1 FL (78-98); MEAN PLATELET VOLUME 10.9 FL (7.4-10.4); MONOCYTES # (AUTO) 0.7 X10'3 (0-0.9); NEUTROPHILS # (AUTO) 14.7 X10'3 (1.8-7.7); NEUTROPHILS % (AUTO) 91.1 % (42-75); PLATELET COUNT 103 X10'3 (140-440); RED BLOOD COUNT 4.76 X10'6 (4.20-5.60); RED CELL DISTRIBUTION WIDTH 15.6 % (11.5-14.5); WHITE BLOOD COUNT 16.1 X10'3 (4.5-11.0)
[2024-07-24 06:27] LABS: ALBUMIN 1.6 G/DL (3.4-5.0); ANION GAP 8 (8-16); BLOOD UREA NITROGEN 40 MG/DL (7-18); BUN/CREATININE RATIO 27.8 (10.0-20.0); CALCIUM 8.3 MG/DL (8.5-10.1); CHLORIDE 98 MMOL/L (99-107); CREATININE 1.44 MG/DL (0.40-0.90); GLUCOSE 231 MG/DL (70-104); MAGNESIUM 1.9 MG/DL (1.5-2.4); POTASSIUM 4.6 MMOL/L (3.5-5.1); SODIUM 134 MMOL/L (135-145); TOTAL CARBON DIOXIDE 27.7 MMOL/L (24-32); eCRCL 33 ML/MIN; eGFR 37 ML/MIN
--- NOTE | 2024-07-24 19:16 | PROGRESS NOTE ---
Daily Progress Note Providers to CC ~ Antibiotic Timeout Antibiotic Ordered?: Yes Subjective Patient was seen in her room her IV antibiotic therapy adjusted based on culture and sensitivity. I also requested ID consult due to positive blood culture from Dr. Henry and she is willing to evaluate the patient. Patient is still not feeling good off and on having pain over belly Objective Vital Signs Date Time Temp Pulse Resp B/P (MAP) Pulse Ox O2 Delivery O2 Flow Rate FiO2 07/24/24 19:07 95 28 Room Air 0.0 21 07/24/24 19:00 96 07/24/24 16:18 97.5 174/91 (118) Result Diagram: 07/24/24 0536 07/24/24 0536 General-patient not in any acute distress, alert awake chronically ill- appearing HEENT-atraumatic normocephalic, neck supple without elevated JVD, no thyromegaly or carotid bruit. No lymphadenopathy bilaterally. Eyes-no icterus or pallor seen in eyes Chest-very mild wheezing and decreased lung sounds over lung bases bilaterally t o auscultation breathing nonlabored no tachypnea, Heart-S1-S2 normal, regular heart rate no murmur Abdomen bowel sounds positive on auscultation, soft nondistended nontender no guarding, no rigidity Skin no active skin rash Neurology-grossly intact, nonfocal alert awake Extremity- 1+ pedal edema bilaterally Psychiatry - patient is not confused or agitated cooperated during physical examination Coagulation Studies Laboratory Tests Test 07/21/24 21:09 Prothrombin Time 11.1 SECONDS (9.0-12.0) INR International Normalized Ratio 1.1 INR Activated Partial Thromboplast Time 26 SECONDS (22-32) Coagulation Comments Problem\Assessment\Plan A 59-year-old female with multiple medical comorbidities was brought in by the EMS in view of altered mental status, found obtunded outside the charge. Patient is admitted for the evaluation and management of acute metabolic encephalopathy, acute hypoxemic respiratory failure. Plan: Acute metabolic encephalopathy -resolved 2/2 Toxic, can not exclude septic U tox positive for amphetamines CT head: No acute intracranial abnormality. Normal ammonia levels Fall precautions, aspiration precaution to continue Acute hypoxemic respiratory failure - resolved 2/2 COPD exacerbation Acute on chronic heart failure with preserved ejection fraction, EF: 60 Right-sided pleural effusion (recurrent) with probably aspiration pneumonia CT chest: Large right and trace left pleural effusions. Echo (03/23/24): Moderate concentric hypertrophy of the left ventricle, EF: 60%, RVSP: 36 mmHg Elevated proBNP, ABG: Normal stopped IV Zosyn, patient is started on levofloxacin today. tapered IV methylprednisolone DuoNeb q.2h p.r.n., q.4h scheduled, incentive spirometry continue IV Lasix 40 mg daily We will do home medication reconciliation once updated by nursing staff s/p thoracocentesis for right pleural effusion Sepsis, POA Secondary to the above Elevated lactic acid Continue antibiotics as per above will Follow up with blood cultures Fever management p.r.n. SVT with aberrancy, prolonged QTC, POA History of chronic AFib EKG on arrival showed RBBB with LAFB, LAD, QTC: 572, QRS: 162 with rS waves in lead two Hypertensive emergency with the elevated troponin-improved History of HTN Hydralazine p.r.n. 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 Diet: NPO DVT prophylaxis: Heparin Patient's current condition is guarded we will continue to follow patient in AM . Date of Service: Jul 24, 2024 Billing Provider: ALTAGRACIA PHELPS MD Common Visit Codes: [id number] INP/OBS CARE(HIGH) ALTAGRACIA PHELPS MD Jul 24, 2024 19:16
[2024-07-24] MEDS: losartan 50mg tablet PO SCH (19:53)
--- NOTE | 2024-07-24 22:30 | CONSULTATION REPORT ---
Consult Consult Consultation Reason for Consult: GAS sepsis Consulting Provider: Dr. Dennis Antibiotic Days: Levaquin 0 S/P Cefepime Lines: Extended Micro: 07/21 Blood- GAS 07/23 Pleural- ngtd HPI: Patient is a 59 year old homeless female with past medical history of substance abuse who was brought to [facility] on 07/21 for a welfare check. [place], sh[place]. Upon arrival, she had leukocytosis and ARMANDO. She was admitted for encephalopathy and started on antibiotics in case of sepsis. It is noted that she was also started on steroids for COPD. ID is asked to consult because 1/2 blood cultures are growing GAS. On exam, she does have a persistent great toe source which I have attempted to treat in the past. Her wound is open but shallow Past Medical/Surgical History: CAD, s/p angioplasty with stenting of the right SFA on April 11, 2023, CHF, AFib, HTN, DM insulin dependent, COPD, Substance abuse, History of recurrent right pleural effusions, CVA/TIA, Multiple sclerosis, Hep C, Fibromyalgia, History of bilateral feet infection due to frostbite, , Orthopedic surgeries, Tonsillectomy Current Medications Medications (Trade) Dose Ordered Sig/Amandeep Route PRN Reason Start Time Stop Time Status Last Admin Dose Admin Lorazepam (Ativan inj) 1 mg ONCE ONCE IV 07/21/24 21:35 07/21/24 21:36 DC 07/21/24 21:41 1 MG Sodium Chloride 500 ml @ 1,000 mls/hr ONCE ONCE IV 07/21/24 21:35 07/21/24 22:04 DC 07/21/24 21:41 1,000 MLS/HR Hydralazine HCl (Apresoline inj.) 10 mg ONCE ONCE IV 07/21/24 22:05 07/21/24 22:06 DC 07/21/24 22:09 10 MG Azithromycin 250 ml @ 250 mls/hr ONCE ONCE IV 07/21/24 22:05 07/21/24 23:04 DC 07/21/24 23:13 250 MLS/HR Ondansetron HCl (Zofran 4mg/2ml vial) 4 mg ONCE ONCE IV 07/21/24 22:40 07/21/24 22:41 DC 07/21/24 22:42 4 MG Naloxone HCl (Narcan 2mg/2ml inj) 2 mg ONCE STAT IV 07/21/24 22:37 07/21/24 22:39 DC 07/21/24 22:42 2 MG Magnesium Sulfate 50 ml @ 100 mls/hr ONCE ONCE IV 07/21/24 22:40 07/21/24 23:09 DC 07/21/24 22:46 100 MLS/HR Acetaminophen 100 ml @ 400 mls/hr ONCE ONCE IV 07/21/24 23:30 07/21/24 23:44 DC 07/21/24 23:58 400 MLS/HR Furosemide (Lasix inj) 40 mg ONCE ONCE IV 07/21/24 23:45 07/21/24 23:55 DC 07/22/24 00:19 40 MG Ceftriaxone Sodium/Dextrose 50 ml @ ud STK-MED ONCE IV 07/22/24 00:20 07/22/24 00:53 DC 07/22/24 00:53 100 MLS/HR Metoprolol Tartrate (Lopressor IV) 5 mg Q15M IV 07/22/24 00:30 07/22/24 03:46 DC 07/22/24 01:04 5 MG Heparin Sodium (Porcine) (heparin, porcine 5000 unit/ ml 1ml vial) 5,000 unit Q12H SQ 07/22/24 08:00 07/24/24 19:48 5,000 UNIT Docusate Sodium (Colace capsule) 100 mg BID PO 07/22/24 08:00 07/23/24 12:42 DC 07/22/24 21:00 100 MG Potassium Chloride (K-DUR tablet) 20 meq Q4H PRN PO Potassium 3.1-3.4 07/22/24 00:40 07/25/24 00:39 07/22/24 22:52 20 MEQ Methylprednisolone Sodium Succinate (Solu-Medrol 40mg inj.) 40 mg Q6H IV 07/22/24 02:00 07/23/24 12:42 DC 07/23/24 08:59 40 MG Albuterol/ Ipratropium (ipratrop/ albuterol 0.5-3(2.5) MG/3ml nebule) 3 ml Q4HRT NEB 07/22/24 03:00 07/24/24 18:59 3 ML Furosemide (Lasix inj) 40 mg BID IV 07/22/24 08:00 07/24/24 16:16 DC 07/23/24 21:20 40 MG Insulin Glargine (Lantus inj) 25 unit HS SQ 07/22/24 21:00 07/23/24 12:42 DC 07/22/24 21:05 25 UNIT Insulin Human Lispro (Humalog Kwikpen U-100 (100 Unit/ ml) 3ml) SUPPLEMENTAL INSULIN To ... ACHS SQ 07/22/24 07:00 07/23/24 12:51 DC 07/23/24 07:00 9 UNIT Naloxone HCl (Narcan 0.4mg/ml inj) 0.4 mg ONCE ONCE IV 07/22/24 03:25 07/22/24 03:26 DC 07/22/24 03:26 0.4 MG Cefepime/Dextrose 50 ml @ 100 mls/hr Q12H IV 07/22/24 08:00 07/24/24 16:16 DC 07/23/24 21:20 100 MLS/HR Lidocaine HCl (GLYDO-Lidocaine 2% Topical Jelly 11mL syringe) 1 applic ONCE ONCE TOP 07/22/24 13:35 07/22/24 13:36 DC 07/22/24 13:39 1 APPLIC Insulin Glargine (Lantus inj) 35 unit HS SQ 07/23/24 21:00 07/24/24 21:27 35 UNIT Methylprednisolone Sodium Succinate (Solu-Medrol 40mg inj.) 40 mg Q12H IV 07/23/24 20:00 07/24/24 16:16 DC 07/23/24 21:20 40 MG Insulin Human Lispro (Humalog Kwikpen U-100 (100 Unit/ ml) 3ml) SUPPLEMENTAL INSULIN To ... ACHS SQ 07/23/24 17:00 07/23/24 13:15 DC 07/23/24 13:12 13 UNIT Insulin Human Lispro (Humalog Kwikpen U-100 (100 Unit/ ml) 3ml) SUPPLEMENTAL INSULIN To ... ACHS SQ 07/23/24 17:00 07/24/24 21:28 4 UNIT Losartan Potassium (Cozaar tablet) 50 mg DAILY PO 07/24/24 19:20 07/24/24 19:53 50 MG Social History: As in HPI Family History: Noncontributory ROS: As in HPI, otherwise negative Objective: Vitals: Afebrile, 102, 18, 174/91, 94% on RA General: A&Ox3, NAD HEENT: NC/AT, normal conjunctiva, no oral lesions appreciated CV: Regular Resp: Clear anteriorly Abd: Soft, nontender, nondistended Ext: Great to wound shallow but persistent, no surrounding hallmarks of inflammation Lines: Occlusively dressed Laboratory Tests 07/24/24 05:36 07/21 CT 1. Large right and trace left pleural effusions. Assessment: // 2 Blood cultures positive for GAS, she does have a potential SSTI source // Great toe wound, stable compared to last year. We did attempt a course of IV therapy at that time // Leukocytosis on steroids // ARMANDO // Pleural effusion s/p thoracentesis // PAD s/p stenting of R SFA // DM, A1c 10 // Hx HCV with negative VL // Substance abuse // Homelessness // Antibiotic Allergies: PCN caused hives. She tolerates cephalosporins Plan: - Continue Levaquin for GAS another week - Would not recommend any further therapy for OM - Wean steroids - Monitor WBC count, Cr - Thank you for the consult, will continue to follow MYNOR TAVERA DO Jul 24, 2024 22:30
[2024-07-25] VITALS (10 sets, daily range): BP systolic 135–190; BP diastolic 59–98; PULSE 85–103; RESP 16–27; TEMP 97.6–97.8; O2SAT 89–100
[2024-07-25] MEDS: hydrALAZINE 20mg/ml inj. IV PRN (04:57)
[2024-07-25 05:47] LABS: BASOPHILS # (AUTO) 0.1 X10'3 (0-0.2); BASOPHILS % (AUTO) 0.7 % (0-1); EOSINOPHILS # (AUTO) 0.2 X10'3 (0-0.9); EOSINOPHILS % (AUTO) 0.9 % (0-6); LYMPHOCYTES # (AUTO) 3.2 X10'3 (1.1-4.8); LYMPHOCYTES % (AUTO) 17.4 % (21-51); MEAN CORPUSCULAR HEMOGLOBIN 28.2 PG (27.0-31.0); MEAN CORPUSCULAR HGB CONC 34.1 g/dL (33.0-36.5); MEAN CORPUSCULAR VOLUME 82.8 FL (78-98); MEAN PLATELET VOLUME 9.9 FL (7.4-10.4); MONOCYTES # (AUTO) 0.9 X10'3 (0-0.9); MONOCYTES % (AUTO) 4.8 % (2-12); NEUTROPHILS # (AUTO) 13.8 X10'3 (1.8-7.7); NEUTROPHILS % (AUTO) 76.2 % (42-75); PLATELET COUNT 156 X10'3 (140-440); RED BLOOD COUNT 5.32 X10'6 (4.20-5.60); RED CELL DISTRIBUTION WIDTH 15.1 % (11.5-14.5); WHITE BLOOD COUNT 18.2 X10'3 (4.5-11.0)
[2024-07-25 05:56] LABS: ALBUMIN 1.8 G/DL (3.4-5.0); ANION GAP 6 (8-16); BLOOD UREA NITROGEN 43 MG/DL (7-18); CALCIUM 9.5 MG/DL (8.5-10.1); CHLORIDE 101 MMOL/L (99-107); CREATININE 1.05 MG/DL (0.40-0.90); POTASSIUM 3.7 MMOL/L (3.5-5.1); SODIUM 138 MMOL/L (135-145); TOTAL CARBON DIOXIDE 31.5 MMOL/L (24-32); eCRCL 46 ML/MIN; eGFR 54 ML/MIN
[2024-07-25 06:09] LABS: GLUCOSE 39 MG/DL (70-104)
[2024-07-25] MEDS: DEXTROSE 15 GM of carb/4 tabs (each vial/BOTTLE has 4 tablets) PO PRN (06:34)
[2024-07-25] MEDS: levoFLOXACIN-Levaquin 500mg/D5 100 ML IV SCH (07:15)
[2024-07-25] MEDS: furosemide 40mg/4ml inj IV SCH (07:16)
[2024-07-25] MEDS: methylPREDNISolone sod succ/PF 40mg inj. IV SCH (07:17)
[2024-07-25] MEDS: amLODIPine 5mg tablet PO SCH (07:17)
[2024-07-25] MEDS ORDERED: LEVO-65 PO (10:52)
[2024-07-25] MEDS ORDERED: FURO20TA4 PO (10:53)
[2024-07-25] MEDS: ondansetron/PF 4mg/2ml inj IV PRN (15:07)
--- NOTE | 2024-07-25 19:40 | DISCHARGE SUMMARY ---
Discharge Summary Providers to CC ~ Discharge Summary Admission Diagnosis: Metabolic encephalopathy, sepsis Hospital Course DATE OF ADMISSION: July 22, 2024 DATE OF DISCHARGE:July 25, 2024 CBC 18.2 patient is currently on steroids. Hemoglobin 15.0 hematocrit 44.0 sed rate 51. Platelet count 156. Serum chemistry done on July 25, 2024 sodium 138 potassium 3.7 creatinine 1.05 GFR 54 last blood sugar 230. Procalcitonin less than 0.05. Hemoglobin A1c 10.0. Urine culture showed no growth after two days. One of the blood culture from right arm shows Streptococcus pyogenes group a During hospitalization patient had thoracocentesis, CT chest, head CT and x-ray chest done please see the details about the results in electronic health records. Discharge Diagnosis\Comment: Acute metabolic encephalopathy -resolved Acute hypoxemic respiratory failure - resolved COPD exacerbation Sepsis Acute on chronic heart failure with preserved ejection fraction, EF: 60 Right-sided pleural effusion (recurrent) with probably aspiration pneumonia SVT with aberrancy, prolonged QTC, POA History of chronic AFib Hypertensive emergency with the elevated troponin-improved History of HTN Prerenal ARMANDO probably secondary to renal tubular stasis Substance use disorder Insulin dependent diabetes mellitus CAD status post stenting and SFA (Rt) CVA/TIA Multiple sclerosis Hep C Operations\Procedures: None Consultants: Dr Henry Complications: None Condition on DC: Stable New Medications: Furosemide (Furosemide) 20 Mg Tablet 1 TAB PO DAILY for 30 Days, #30 TAB 0 Refills Levofloxacin (Levofloxacin) 500 Mg Tablet 1 TAB PO DAILY for 7 Days, #7 TAB Continued Medications: Amiodarone Hcl (Cordarone) 200 Mg Tablet 200 MG PO DAILY for 30 Days, #30 TAB Amlodipine Besylate (Amlodipine Besylate) 10 Mg Tablet 1 TAB PO DAILY for 30 Days, #30 TAB 0 Refills Apixaban (Eliquis) 5 Mg Tablet 1 TAB PO BID for 30 Days, #60 TAB 0 Refills Atorvastatin Calcium* (Lipitor*) 40 Mg Tablet 1 TAB PO DAILY for 30 Days, #30 TAB Budesonide/Formoterol Fumarate (Symbicort 80-4.5 Mcg Inhaler) 80 Mcg-4.5 Mcg/Actuation Hfa.aer.ad 2 PUFFS INH Q12H for 30 Days, #1 GM 0 Refills Clopidogrel Bisulfate (Clopidogrel) 75 Mg Tablet 75 MG PO DAILY, #30 TAB Do not stop medication unless instructed by prescriber. Insulin Glargine,Hum.rec.anlog (Basaglar Kwikpen U-100) 100 Unit/Ml (3 Ml) Insuln.pen 25 UNITS SQ QPM, #9 ML Insulin Lispro (Insulin Lispro Tonny Kwikpen) 100 Unit/Ml Ins.pen.hf 4 UNIT SQ ACHS, #500 UNITS Ipratropium/Albuterol Sulfate (Combivent Respimat Inhal [place]) 20 Mcg-100 Mcg/Actuation Aer.w.adap 2 PUFFS IH Q4H PRN for SOB or wheezing, #1 INH 1 Refill Lisinopril (Lisinopril) 5 Mg Tablet 5 MG PO DAILY, #30 TAB Metoprolol Succinate (Metoprolol Succinate) 25 Mg Tab.sr.24h 1 TAB PO DAILY for 30 Days, #30 TAB 0 Refills Discontinued Medications: Furosemide 40 MG (Lasix) 40 Mg Tablet 1 TAB PO BID, #60 TAB Unable to Obtain Medications (Unable to Obtain Medications) Each Discharge Summary: A 59-year-old female with multiple medical comorbidities was brought in by the EMS in view of altered mental status, found obtunded outside the charge. Patient is admitted for the evaluation and management of acute metabolic encephalopathy, acute hypoxemic respiratory failure. Plan: Acute metabolic encephalopathy -resolved 2/2 Toxic, can not exclude septic U tox positive for amphetamines CT head: No acute intracranial abnormality. Normal ammonia levels Fall precautions, aspiration precaution to continue Acute hypoxemic respiratory failure - resolved 2/2 COPD exacerbation Acute on chronic heart failure with preserved ejection fraction, EF: 60 Right-sided pleural effusion (recurrent) with probably aspiration pneumonia CT chest: Large right and trace left pleural effusions. Echo (03/23/24): Moderate concentric hypertrophy of the left ventricle, EF: 60%, RVSP: 36 mmHg Elevated proBNP, ABG: Normal stopped IV Zosyn, patient is started on levofloxacin , tapered IV methylprednisolone DuoNeb q.2h p.r.n., q.4h scheduled, incentive spirometry treated with IV Lasix 40 mg daily s/p thoracocentesis for right pleural effusion Sepsis, POA Secondary to the above Elevated lactic acid Continue antibiotics as per above will Follow up with blood cultures Fever management p.r.n. SVT with aberrancy, prolonged QTC, POA History of chronic AFib EKG on arrival showed RBBB with LAFB, LAD, QTC: 572, QRS: 162 with rS waves in lead two Hypertensive emergency with the elevated troponin-improved History of HTN Hydralazine p.r.n. improved Continue to monitor vitals Restarted home meds after reconciliation Follow up with repeat troponin Prerenal ARMANDO probably secondary to renal tubular stasis Mildly elevated creatinine Continue to monitor BMP Substance use disorder patient services specialist consult CAD status post stenting and SFA (Rt) Restart home meds after reconciliation Insulin dependent diabetes mellitus A1c in April,:10.3 Follow up with repeat A1c Started on Lantus 25 units, medium dose sliding scale insulin CVA/TIA Multiple sclerosis Restart home meds after reconciliation Hep C Not on any treatment Patient's clinical condition was stable throughout the hospital. She has been afebrile and getting discharged home in stable condition with her daughter. Patient is seen and examined on the day of discharge and discharge instructions provided to the patient.please follow up with PCP/ [facility] / urgent care in 1 week . repeat CBC , Procalcitonin in 1 week . recommended to stop Meth strongkly . please provide fall precaution documents . General-patient not in any acute distress, alert awake chronically ill- appearing HEENT-atraumatic normocephalic, neck supple without elevated JVD, no thyromegaly or carotid bruit. No lymphadenopathy bilaterally. Eyes-no icterus or pallor seen in eyes Chest-very mild wheezing and decreased lung sounds over lung bases bilaterally to auscultation breathing nonlabored no tachypnea, Heart-S1-S2 normal, regular heart rate no murmur Abdomen bowel sounds positive on auscultation, soft nondistended nontender no guarding, no rigidity Skin no active skin rash Neurology-grossly intact, nonfocal alert awake Extremity- 1+ pedal edema bilaterally Psychiatry - patient is not confused or agitated cooperated during physical examination *Problems/Diagnosis: (1) Acute hypoxic respiratory failure Status: Acute Total Time Spent on D/C: > 30 Minutes Date of Service: Jul 25, 2024 Billing Provider: ALTAGRACIA PHELPS MD Common Visit Codes: 45254-NMO/OBS DISCH DAY >30min ALTAGRACIA PHELPS MD Jul 25, 2024 19:36
[2024-07-25] MEDS ORDERED: insulin glargine (Lantus) pen - multi-dose SQ SCH (21:00)
[2024-07-26] MEDS ORDERED: levoFLOXACIN-Levaquin 250mg/D5 50 ML IV SCH (08:00)
[2024-07-26] MEDS ORDERED: methylPREDNISolone sod succ/PF 40mg inj. IV SCH (08:00)
== END 2024-07-25 18:35 | disposition home or self-care (01) | DRG 720 ==
LOC: ER 20:47 → ED HOLD 07-22 00:48 → PCU 3S 07-22 16:20
PROVIDERS: ADMIT Internal Medicine; ATTEND Internal Medicine
PROC: 0W993ZZ Drainage of Right Pleural Cavity, Percutaneous Approach (ICD-10-PCS; principal; 2024-07-23)
PROC: 05HB33Z Insertion of Infusion Device into Right Basilic Vein, Percutaneous Approach (ICD-10-PCS; 2024-07-24)
PROC: B54MZZA Ultrasonography of Right Upper Extremity Veins, Guidance (ICD-10-PCS; 2024-07-24)
DX: A41.9 Sepsis, unspecified organism (principal); J96.01 Acute respiratory failure with hypoxia; J69.0 Pneumonitis due to inhalation of food and vomit; N17.0 Acute kidney failure with tubular necrosis; I50.33 Acute on chronic diastolic (congestive) heart failure; G93.41 Metabolic encephalopathy; Z20.822 Contact with and (suspected) exposure to COVID-19; J91.8 Pleural effusion in other conditions classified elsewhere; I48.91 Unspecified atrial fibrillation; G35 Multiple sclerosis; J44.1 Chronic obstructive pulmonary disease with (acute) exacerbation; E11.9 Type 2 diabetes mellitus without complications; I16.1 Hypertensive emergency; I11.0 Hypertensive heart disease with heart failure; J43.9 Emphysema, unspecified; M79.7 Fibromyalgia; I25.10 Atherosclerotic heart disease of native coronary artery without angina pectoris; I47.19 Other supraventricular tachycardia; Z79.01 Long term (current) use of anticoagulants; Z79.4 Long term (current) use of insulin; Z79.899 Other long term (current) drug therapy; Z88.0 Allergy status to penicillin; Z86.73 Personal history of transient ischemic attack (TIA), and cerebral infarction without residual deficits; Z98.61 Coronary angioplasty status; Z99.3 Dependence on wheelchair; Z59.00 Homelessness unspecified; Z98.891 History of uterine scar from previous surgery
CPT/HCPCS: 32555; 36410; 36415; 36600; 70450; 71045; 71260; 76937; 80048; 80061; 80305; 81001; 82140; 82550; 82803; 82945; 82948; 83036; 83605; 83615; 83735; 83880; 83986; 84132; 84145; 84157; 84484; 85018; 85025; 85610; 85651; 85730; 86140; 87040; 87070; 87075; 87077; 87081; 87088; 87186; 87811; 89051; 93005; 94640; 94760; 96365; 97161; 97530; 99291; A4358; A6212; A6213; A6250; A6258; C1751; C1758; G0378; J0131; J0360; J0456; J0692; J0696; J1644; J1815; J1940; J1956; J2060; J2310; J2405; J2919; J3490; J7030; J7040; J7050; Q9967

== ENCOUNTER 2024-08-02 12:48 | Emergency (ER) | payer MEDICAID ==
[~2024-08-02] VITALS: Ht 160 cm; Wt 75.0 kg
[~2024-08-02 12:48] MED LIST changes: +FURO20TA4 PO; -FURO40TA4 PO; +LEVO-65 PO
[2024-08-02 12:54] VITALS: TEMP 98.9
--- NOTE | 2024-08-02 13:02 | Physician Documentation ---
History of Present Illness ~ Chief Complaint: See Chief Complaint Stated Complaint: SKIN TEAR Time Seen by MD: 12:57 Primary Medical Doctor: DAVID RUIZ HPI 59-year-old female presents to the ED with soil linens and urine coated clothes. She states that she [facility] where she had a bowel movement on herself. States that she is normally in a wheelchair. Denies any fevers however. Day of Onset: Aug 02, 2024 Medication Reconciliation Allergies: Coded Allergies: Penicillins (Verified Allergy, Unknown, HIVES, 08/02/24) TOLERATING CEFEPIME 01/2024 Scheduled Amiodarone Hcl (Cordarone), 200 MG PO DAILY Amlodipine Besylate (Amlodipine Besylate), 1 TAB PO DAILY Apixaban (Eliquis), 1 TAB PO BID Atorvastatin Calcium* (Lipitor*), 1 TAB PO DAILY Budesonide/Formoterol Fumarate (Symbicort 80-4.5 Mcg Inhaler), 2 PUFFS INH Q12H Clopidogrel Bisulfate (Clopidogrel), 75 MG PO DAILY Furosemide (Furosemide), 1 TAB PO DAILY Insulin Glargine,Hum.rec.anlog (Basaglar Kwikpen U-100), 25 UNITS SQ QPM Insulin Lispro (Insulin Lispro Tonny Kwikpen), 4 UNIT SQ ACHS Lisinopril (Lisinopril), 5 MG PO DAILY Metoprolol Succinate (Metoprolol Succinate), 1 TAB PO DAILY Scheduled PRN Ipratropium/Albuterol Sulfate (Combivent Respimat Inhal [place]), 2 PUFFS IH Q4H PRN for SOB or wheezing Discontinued Medications Levofloxacin (Levofloxacin), 1 TAB PO DAILY Discontinued Reason: Auto Discontinued Past Medical History Past Medical History: CVA/TIA/Stroke, Multiple Sclerosis, Congestive Heart Failure, Hypertension, Asthma, COPD, Emphysema, Constipation, Hepatitis C, Diabetes, Fibromyalgia, Cellulitis Past Surgical History: , orthopedic surgeries, tonsillectomy Patient History: FH: skin cancer Maternal Grandmother Alcohol Use: Other Lives In: Homeless, Other Review of Systems All Other Systems at this time: Reviewed and Negative ROS As stated above in the HPI, otherwise all systems are reviewed and negative. Physical Exam Physical Exam General: Alert, no apparent distress. Cardiovascular: Regular rate and rhythm, no murmurs. Gastrointestinal: Soft, nontender, nondistended. Bowels sounds present. Extremities: Normal range of motion, no deformity. small skin tear left forearm Neurologic: Oriented x4. Progress Results/Orders Results/Orders Orders - ESAU PETERS COMMUNITY THEATER ACTOR Culture Blood (08/02/24 13:02) Monitor (08/02/24 13:02) Saline Lock (08/02/24 13:02) * Straight Cath* (08/02/24 13:52) Completed Orders - ESAU PETERS COMM[employer] THE[employer] ACTOR Cbc/Diff (08/02/24 13:02) Procalcitonin (08/02/24 13:02) BMP (08/02/24 13:02) Lacticsepsis (08/02/24 13:02) Ua W/Microscopic, Cult If Ind (08/02/24 14:29) Loperamide Capsule (Imodium Capsule) (08/02/24 15:00) Vital Signs 08/02/24 08/02/24 12:54 14:00 Temp 98.9 Pulse 97 96 Resp 16 17 B/P (MAP) 142/76 192/109 (136) Pulse Ox 97 97 O2 Flow Rate 0 Laboratory Tests Test 08/02/24 13:18 08/02/24 14:29 White Blood Count 10.1 Red Blood Count 4.76 Hemoglobin 13.3 Hematocrit 40.3 Mean Corpuscular Volume 84.6 Mean Corpuscular Hemoglobin 28.0 Mean Corpuscular Hemoglobin Concent 33.0 Red Cell Distribution Width 14.8 H Platelet Count 117 L Mean Platelet Volume 8.4 Neutrophils (%) (Auto) 74.3 Lymphocytes (%) (Auto) 16.7 L Monocytes (%) (Auto) 5.5 Eosinophils (%) (Auto) 2.4 Basophils (%) (Auto) 1.1 H Neutrophils # (Auto) 7.5 Lymphocytes # (Auto) 1.7 Monocytes # (Auto) 0.6 Eosinophils # (Auto) 0.2 Basophils # (Auto) 0.1 CBC Comment Sodium Level 142 Potassium Level 3.7 Chloride Level 108 H Carbon Dioxide Level 29.8 Anion Gap 4 L Blood Urea Nitrogen 14 Creatinine 0.74 Estimated GFR/1.73 m2 80 BUN/Creatinine Ratio 18.9 Glucose Level 215 H Lactic Acid Level 1.2 Calcium Level 8.3 L Albumin 1.6 L Procalcitonin < 0.05 Chemistry Comments Urine Specimen Description Straight cath Urine Color Yellow Urine Clarity Slightly cloudy Urine pH 7.0 Urine Specific [place] 1.020 Urine Protein >=300 H Urine Glucose (UA) 500 H Urine Ketones Negative Urine Occult Blood Small Urine Nitrite Negative Urine Bilirubin Negative Urine Urobilinogen 1.0 Urine Leukocyte Esterase Negative Urine RBC 3-10 Urine WBC 0-4 Urine Squamous Epithelial Cells Few Urine Transitional Epithelial Cells Few Urine Amorphous Phosphates 1+ Urine Bacteria Few Urine Fine Granular Casts 0-3 Urine Coarse Granular Casts 0-3 Urine Culture Indicated Not ind Volume Urine Centrifuged 10 ml Urine Comment Medical Decision Making Findings I evaluated the patient thoroughly I do not see any signs of infection. And after discussing with the patient I do not see any reason to prefer pursue any further imaging of her head. Her laboratory values overall unremarkable.. He has a very minor skin tear on her left forearm which occurred yesterday. No signs of infection. At this stage I am going to discharge the patient after she was completely cleaned up by nursing staff and transport her back to where her wheelchair is Treated patient for diarrhea as the nursing staff reported she required a commode transfer to have a BM Urinary Diff Dx:Considerations: Include: AAA, , Aortic dissection, Appendicitis, Bowel obstruction, Cholelithiasis, Choleangitis, DJD, Ectopic , Hepatitis, HNP, Impaction, Intrauterine , Musculoskeletal pain, Ovarian torsion, Pancreatitis, PID, Post-Op complication, Pyelonephritis, Renal failure, Strain, Urinary Obstruction, Urolithiasis, Urinary retention, UTI, Vaginitis, Other Departure Disposition: 01 HOME / SELF CARE / HOMELESS Impression: Primary Impression: Homelessness Additional Impression: Diarrhea Condition: Stable Referrals: NO PRIMARY CARE PROVIDER (PCP) Signature Scribe Signature: d Attestation: Scribed for Esau Peters Electrical Engineer Mep by Esau Chambers NP . 08/02/24 14:52 ESAU PETERS NP Aug 02, 2024 13:02
[2024-08-02 13:32] LABS: BASOPHILS # (AUTO) 0.1 X10'3 (0-0.2); HEMOGLOBIN 13.3 g/dl (12.0-16.0); MONOCYTES # (AUTO) 0.6 X10'3 (0-0.9)
[2024-08-02 13:34] LABS: BASOPHILS % (AUTO) 1.1 % (0-1); EOSINOPHILS # (AUTO) 0.2 X10'3 (0-0.9); EOSINOPHILS % (AUTO) 2.4 % (0-6); HEMATOCRIT 40.3 % (35.0-45.0); LYMPHOCYTES # (AUTO) 1.7 X10'3 (1.1-4.8); LYMPHOCYTES % (AUTO) 16.7 % (21-51); MEAN CORPUSCULAR VOLUME 84.6 FL (78-98); MEAN PLATELET VOLUME 8.4 FL (7.4-10.4); MONOCYTES % (AUTO) 5.5 % (2-12); NEUTROPHILS # (AUTO) 7.5 X10'3 (1.8-7.7); NEUTROPHILS % (AUTO) 74.3 % (42-75); PLATELET COUNT 117 X10'3 (140-440); RED BLOOD COUNT 4.76 X10'6 (4.20-5.60); RED CELL DISTRIBUTION WIDTH 14.8 % (11.5-14.5); WHITE BLOOD COUNT 10.1 X10'3 (4.5-11.0)
[2024-08-02 13:48] LABS: ALBUMIN 1.6 G/DL (3.4-5.0); ANION GAP 4 (8-16); BLOOD UREA NITROGEN 14 MG/DL (7-18); BUN/CREATININE RATIO 18.9 (10.0-20.0); CALCIUM 8.3 MG/DL (8.5-10.1); CHLORIDE 108 MMOL/L (99-107); CREATININE 0.74 MG/DL (0.40-0.90); GLUCOSE 215 MG/DL (70-104); POTASSIUM 3.7 MMOL/L (3.5-5.1); SODIUM 142 MMOL/L (135-145); TOTAL CARBON DIOXIDE 29.8 MMOL/L (24-32); eCRCL 68 ML/MIN; eGFR 80 ML/MIN
[2024-08-02 14:37] LABS: BILIRUBIN,URINE NEGATIVE (Neg); CLARITY,URINE SLIGHTLY CLOUDY (Clear); COLOR,URINE YELLOW (Yellow); GLUCOSE, URINE 500 mg/dl (Neg); KETONES,URINE NEGATIVE (Neg); LEUKOCYTE ESTERASE ,URINE NEGATIVE (Neg); NITRITES, URINE NEGATIVE (Neg); OCCULT BLOOD,URINE SMALL (Neg); PROTEIN,URINE >=300 mg/dl (Neg)
[2024-08-02 14:44] LABS: UA COLLECTION TYPE STRAIGHT CATH
[2024-08-02 14:47] LABS: AMORPHOUS PHOSPHATES 1+; BACTERIA,URINE FEW /HPF (Neg); FINE GRANULAR CAST 0-3 /LPF (NEGATIVE); SQUAMOUS EPITHELIAL CELL,UR FEW /LPF (FEW); TRANSITIONAL EPI CELLS,URINE FEW /HPF; WBC,URINE 0-4 /HPF (0-4)
[2024-08-02 14:48] LABS: COARSE GRANULAR CAST 0-3 /LPF (NEGATIVE)
[2024-08-02] MEDS: loperamide 2mg capsule PO ONE (15:30)
[2024-08-02 16:05] VITALS: BP 180/75; PULSE 65; RESP 15; O2SAT 97
== END 2024-08-02 15:50 | disposition home or self-care (01) ==
LOC: ER 12:51
DX: R19.7 Diarrhea, unspecified (principal); E11.9 Type 2 diabetes mellitus without complications; I11.0 Hypertensive heart disease with heart failure; I50.9 Heart failure, unspecified; M79.7 Fibromyalgia; Z59.00 Homelessness unspecified; Z86.73 Personal history of transient ischemic attack (TIA), and cerebral infarction without residual deficits; Z88.0 Allergy status to penicillin; Z79.899 Other long term (current) drug therapy
CPT/HCPCS: 36415; 80048; 81001; 83605; 84145; 85025; 87040; 99284; A4353

== ENCOUNTER 2024-09-05 08:35 | Inpatient (IN) | payer MEDICAID ==
[~2024-09-05] VITALS: Ht 165.1 cm; Wt 73.5 kg
[~2024-09-05 08:35] MED LIST changes: -AMI200T PO; +AMIO200T76 PO; -LEVO-65 PO
[2024-09-05] MEDS: CefTRIAXone 2gm/D5W 50ml BAG 50 ML IV ONE (08:50)
--- NOTE | 2024-09-05 08:52 | Physician Documentation ---
History of Present Illness ~ Stated Complaint: ALOC Time Seen by MD: 08:46 Primary Medical Doctor: DAVID RUIZ Source: EMS, EMS notes reviewed Mode of Arrival: EMS Exam Limitations: clinical condition HPI Chief Complaint: Altered mental status Caveat: Altered mental status Independent Historians: Paramedics History of Present Illness: Patient is a 59-year-old woman brought in by paramedics from the [facility]. People at admission thought she was in breathing and started bag-mask ventilation. Paramedics found the patient to be breathing and had a pulse ox of 98% when they placed on a non-rebreather. Patient was altered but is able to follow some commands. She opens her eyes to and responds to voice. Firefighters found her pulse ox to be 86-88% on room air. However they did not have a good path and that was not thought to be accurate but is the reason for why she was being bag-mask ventilated. Patient's smells of urine. Medical records review: Last ER visit August 02 for diarrhea. Last hospitalization was July and discharged on July 25 for acute metabolic encephalopathy, respiratory failure, COPD exacerbation and sepsis and acute on chronic heart failure and right-sided pleural effusion with thoracentesis Review of systems: All systems were reviewed and are negative except for what is indicated in the history of present illness. Past Medical History: Multiple medical problems, see below congestive heart failure with preserved ejection fraction of 60%, history of right-sided pleural effusion recurrent, chronic atrial fibrillation, HTN, ARMANDO, CAD, multiple sclerosis, hepatitis-C, COPD Past Surgical History: Noncontributory Social History: Homelessness Medications: Reviewed as documented Nursing Notes Allergies: Reviewed as documented in Nursing Notes Medication Reconciliation Allergies: Coded Allergies: Penicillins (Verified Allergy, Unknown, HIVES, 08/02/24) TOLERATING CEFEPIME 01/2024 Scheduled Amiodarone Hcl (Cordarone), 200 MG PO DAILY Amlodipine Besylate (Amlodipine Besylate), 1 TAB PO DAILY Apixaban (Eliquis), 1 TAB PO BID Atorvastatin Calcium* (Lipitor*), 1 TAB PO DAILY Budesonide/Formoterol Fumarate (Symbicort 80-4.5 Mcg Inhaler), 2 PUFFS INH Q12H Clopidogrel Bisulfate (Clopidogrel), 75 MG PO DAILY Furosemide (Furosemide), 1 TAB PO DAILY Insulin Glargine,Hum.rec.anlog (Basaglar Kwikpen U-100), 25 UNITS SQ QPM Insulin Lispro (Insulin Lispro Tonny Kwikpen), 4 UNIT SQ ACHS Lisinopril (Lisinopril), 5 MG PO DAILY Metoprolol Succinate (Metoprolol Succinate), 1 TAB PO DAILY Scheduled PRN Ipratropium/Albuterol Sulfate (Combivent Respimat Inhal [place]), 2 PUFFS IH Q4H PRN for SOB or wheezing Past Medical History Past Medical History: CVA/TIA/Stroke, Multiple Sclerosis, Congestive Heart Failure, Hypertension, Asthma, COPD, Emphysema, Constipation, Hepatitis C, Diabetes, Fibromyalgia, Cellulitis Past Surgical History: , orthopedic surgeries, tonsillectomy Patient History: FH: skin cancer Maternal Grandmother Alcohol Use: Other Lives In: Homeless, Other Review of Systems All Other Systems at this time: Reviewed and Negative ROS Patient denies any other acute symptoms other than above. All other systems are negative Physical Exam Vital Signs: RN Vital Signs have been reviewed: Yes Pulse Oximetry Reflects: adequate oxygenation Physical Exam General Appearance: Severe distress, acutely and chronically ill-appearing, critically ill-appearing, disheveled, poor hygiene HEENT: Normal OP, by oral mucosa, dried mucus on lips, tongue and in mouth, PERRL, EOMI Neck: supple, normal ROM, trachea midline Pulmonary: Mild respiratory distress, tachypneic, CTA, BS equal, 93% on room air Cardiac: Tachycardic, regular rhythm, no murmur, rub or gallop, GI: nondistended, soft, nontender, normal bowel sounds, no guarding, no rebound Extremities: normal ROM, bilateral lower extremity edema that has nonpitting, non-tender. Hands and arms are also edematous. Skin: intact, dry, warm, no rashes Neuro: Somnolent, responds to voice, generally weak, moves all extremities Psych: Unable to assess Progress Results/Orders Results/Orders Orders - AVTAR JACKSON MD Culture Blood (09/05/24 08:42) Chest,Single View (09/05/24 08:42) Monitor (09/05/24 08:42) Saline Lock (09/05/24 08:42) Procalcitonin (09/05/24 08:42) * (B) Glass- Non Protocol * Q12H@07,19 (09/05/24 08:47) Page Hospitalist (09/05/24 10:00) Fill Out Med Reconciliation (09/05/24 10:00) Completed Orders - AVTAR JACKSON MD Cbc/Diff (09/05/24 08:42) Chest,Single View (09/05/24 08:42) Lacticsepsis (09/05/24 08:42) CMP (09/05/24 08:46) MG (09/05/24 08:47) Normal Saline 1000ml (0.9% Sodium Chlori (09/05/24 08:50) Ceftriaxone 2gm/D5w 50ml Bag (Rocephin 2 (09/05/24 08:50) Acetaminophen 1,000mg/100ml Iv (Ofirmev (09/05/24 09:13) Ua W/Microscopic, Cult If Ind (09/05/24 08:59) Medications Received in ER Medications (Trade) Dose Ordered Sig/Amandeep Route PRN Reason Start Time Stop Time Status Last Admin Dose Admin (0.9% sodium chloride (NS) 1000ml IV soln) 2,500 ml ONCE ONCE IV 09/05/24 08:50 09/05/24 08:51 DC 09/05/24 09:32 2,500 ML Acetaminophen 100 ml @ 400 mls/hr ONCE STAT IV 09/05/24 09:13 09/05/24 09:27 DC 09/05/24 09:33 400 MLS/HR Vital Signs 09/05/24 09/05/24 09/05/24 09/05/24 08:44 09:03 09:17 09:53 Temp 103.1 103.1 Pulse 123 64 Resp 32 26 B/P (MAP) 161/82 Pulse Ox 100 99 O2 Flow Rate 15.0 4.0 Laboratory Tests Test 09/05/24 08:53 09/05/24 08:54 09/05/24 08:59 Lactic Acid Level 1.2 White Blood Count 15.0 H Red Blood Count 4.80 Hemoglobin 13.3 Hematocrit 40.3 Mean Corpuscular Volume 84.1 Mean Corpuscular Hemoglobin 27.7 Mean Corpuscular Hemoglobin Concent 32.9 L Red Cell Distribution Width 14.5 Platelet Count 112 L Mean Platelet Volume 8.8 Neutrophils (%) (Auto) 93.4 H Lymphocytes (%) (Auto) 2.9 L Monocytes (%) (Auto) 3.3 Eosinophils (%) (Auto) 0 Basophils (%) (Auto) 0.4 Neutrophils # (Auto) 14.0 H Lymphocytes # (Auto) 0.4 L Monocytes # (Auto) 0.5 Eosinophils # (Auto) 0.0 Basophils # (Auto) 0.1 CBC Comment Sodium Level 135 Potassium Level 2.8 *L Chloride Level 98 L Carbon Dioxide Level 24.8 Anion Gap 12 Blood Urea Nitrogen 12 Creatinine 0.89 Estimated GFR/1.73 m2 65 BUN/Creatinine Ratio 13.5 Glucose Level 188 H Calcium Level 8.4 L Magnesium Level 1.8 Total Bilirubin 1.4 H Aspartate Amino Transf (AST/SGOT) 40 H Alanine Aminotransferase (ALT/SGPT) 13 Alkaline Phosphatase 92 Total Protein 6.6 Albumin 1.8 L Globulin 4.8 H Albumin/Globulin Ratio 0.4 L Chemistry Comments Urine Specimen Description Straight cath Urine Color Dark yellow Urine Clarity Slightly cloudy Urine pH 6.0 Urine Specific [place] 1.025 Urine Protein >=300 H Urine Glucose (UA) 100 H Urine Ketones 40 H Urine Occult Blood Moderate H Urine Nitrite Negative Urine Bilirubin Moderate Urine Urobilinogen 1.0 Urine Leukocyte Esterase Negative Urine RBC 3-10 Urine WBC 0-4 Urine Squamous Epithelial Cells Few Urine Bacteria 2+ Urine Hyaline Casts 0-3 Urine Fine Granular Casts 5-10 Urine Coarse Granular Casts 3-5 Urine Culture Indicated Not ind Volume Urine Centrifuged 10 ml Urine Comment Medical Decision Making Additional info obtained from: old records Findings Differential diagnosis includes but is not limited to: Sepsis, severe sepsis, urinary tract infection, C diff colitis, intra-abdominal infection, pneumonia EKG independent interpretation: Performed at 8:49 a.m.. Sinus tachycardia, heart rate 111, right bundle-branch block, left axis deviation, left anterior fascicular block Chest x-ray, single view, indication: Altered mental status Independent interpretation: Small right pleural effusion Laboratory data independent interpretation: [place]: [place] [id number] CMP: Hyponatremia with a potassium of 2.8, serum glucose elevated at 188 Lactic acid: 1.2 Toxicology: Urine drug screen pending Urinalysis: RBC 3-10, WBC 0-4, few squamous epithelial cells, 2+ bacteria, nitrite negative Emergency department course/medical decision-making: Patient is a 59-year-old woman who presents with fever and altered mental statu s. Patient onset voice and is appropriate. Patient smells of urine. Suspect urinary tract infection however the urinalysis is not convincing. Patient is given 2.5 L of normal saline. Patient is given IV Tylenol for fever. Patient is given IV Rocephin empirically for what is likely a urinary tract infection. Patient also has a right pleural effusion. Can not rule out pneumonia. Patient will require admission for sepsis and metabolic encephalopathy. Consultation/communications: 10:15 a.m.: Case discussed with the hospitalist Dr. Dennis. She will evaluate the patient for admission. Departure Time of Disposition: 09:55 Disposition: ADMITTED INPATIENT Admission Level of Care: PCU with Tele Impression: Primary Impression: Sepsis Qualified Codes: A41.9 - Sepsis, unspecified organism; R65.20 - Severe sepsis without septic shock; G93.41 - Metabolic encephalopathy Additional Impressions: Metabolic encephalopathy Congestive heart failure Qualified Codes: I50.9 - Heart failure, unspecified Hypokalemia Condition: Guarded Referrals: NO PRIMARY CARE PROVIDER (PCP) Critical Care Note Total Time (mins): 60 Critical Care Note Critical conditions addressed for impending deterioration include: a irway/respiratory, cardiovascular, OTR FLATBED DRIVER, metabolic, renal Associated risk factors involving deterioration include: hypoxia, hypertension, metabolic changes, dehydration, acidosis, The very real possibility of a deterioration of this patient's condition required the highest level of my preparedness for sudden, emergent intervention. I provided critical care services, which included medication orders, frequent reevaluations of the patient's condition and response to treatment, ordering and reviewing test results, and discussing the case with necessary consultants. Critical care time was exclusive of necessary procedure time. The critical care time associated with the care of the patient was 60 minutes. Signature Scribe Signature: No scribe Attestation: No scribe AVTAR JACKSON MD Sep 05, 2024 08:52
[2024-09-05 09:20] LABS: MEAN PLATELET VOLUME 8.8 FL (7.4-10.4); RED CELL DISTRIBUTION WIDTH 14.5 % (11.5-14.5)
[2024-09-05 09:22] LABS: LEUKOCYTE ESTERASE ,URINE NEGATIVE (Neg); NITRITES, URINE NEGATIVE (Neg); OCCULT BLOOD,URINE MODERATE (Neg)
[2024-09-05 09:26] LABS: UA COLLECTION TYPE STRAIGHT CATH
[2024-09-05] MEDS: normal saline 1000ML IV soln IV ONE (09:32)
[2024-09-05] MEDS: acetaminophen 1,000mg/100ml IV 100 ML IV STA (09:33)
--- NOTE | 2024-09-05 09:34 | RADIOLOGY REPORT ---
CHEST RADIOGRAPH Indication: sepsis workup Technique: Single frontal view of the chest was obtained COMPARISON: DI CHEST,SINGLE VIEW on DOS: 07/21/24, DI CHEST,SINGLE VIEW on DOS: 05/11/24, DI CHEST,SINGL E VIEW on DOS: 05/08/24, DI CHEST,SINGLE VIEW on DOS: 05/05/24, DI CHEST,SINGLE VIEW on DOS: 03/24/24 FINDINGS: Lines and Tubes: None Lungs: Multifocal airspace disease. Pleura: Small right pleural effusion. No pneumothorax. Cardiomediastinal contours: Unremarkable Bones: Unremarkable IMPRESSION: Small right pleural effusion.
[2024-09-05 09:38] LABS: CREATININE 0.89 MG/DL (0.40-0.90); TOTAL CARBON DIOXIDE 24.8 MMOL/L (24-32); eCRCL 61 ML/MIN; eGFR 65 ML/MIN
[2024-09-05 09:41] LABS: HYALINE CASTS 0-3 /LPF (NEGATIVE)
[2024-09-05 09:42] LABS: SQUAMOUS EPITHELIAL CELL,UR FEW /LPF (FEW)
[2024-09-05] MEDS ORDERED: potassium Cl 20 mEq SR tablet PO PRN (10:15)
[2024-09-05] MEDS ORDERED: HYDROcodone/acetaminophen 5mg/325mg tablet PO PRN (10:15)
[2024-09-05] MEDS ORDERED: magnesium sulf-water 4G/100mL 100 ML IV PRN (10:15)
[2024-09-05] MEDS ORDERED: HYDROcodone/acetaminophen 10/325mg tab PO PRN (10:15)
[2024-09-05] MEDS ORDERED: magnesium Cl slow-release 64mg tablet PO PRN (10:15)
[2024-09-05] MEDS ORDERED: potassium Cl 40MEQ/1/2NS 520ml 520 ML IV PRN (10:15)
[2024-09-05] MEDS ORDERED: magnesium sulf-water 2g/50mL 50 ML IV PRN (10:15)
[2024-09-05] MEDS: potassium Cl 40MEQ/1/2NS 520ml 520 ML IV ONE (10:53)
[2024-09-05] MEDS ORDERED: UNABLE TO OBTAIN (11:34)
[2024-09-05 11:36] LABS: ETHANOL < 10 MG/DL (<10)
--- NOTE | 2024-09-05 11:45 | RADIOLOGY REPORT ---
EXAM: DI ANKLE,LIMITED (AP/LAT), DI FOOT, COMPLETE (3VW MIN) CLINICAL INDICATION: OPEN WOUND FOOT, SWELLING RIGHT TECHNIQUE: DI ANKLE,LIMITED (AP/LAT), DI FOOT, COMPLETE (3VW MIN) Comparison: DI ANKLE,LIMITED (AP/LAT) on DOS: 06/08/23, KNEE LIMITED (AP/LAT) on DOS: 08/28/22 FINDINGS/IMPRESSION: There is a heterotopic bone adjacent to the talus and calcaneus, which could represent chronic deform ity from trauma. Consider CT examination for further evaluation.
[2024-09-05 12:00] VITALS: BP 122/67; PULSE 93; RESP 20; TEMP 98.4; O2SAT 98
--- NOTE | 2024-09-05 13:44 | ELECTROCARDIOGRAPH REPORT ---
[facility] Test Date: 2024-09-05 Test Time: 08:49:24 Pat Name: RHIANNON BATES Department: EMERGENCY ROOM Room: [place] [address] A Gender: F [employer] Package Symbol Stamper: VERNA : 1965 Requested By: ALTAGRACIA PHELPS Order Number: [id number] Reading MD: Dr. Agustin Chung Measurements Intervals [place] Rate: 111 P: 78 [place]: 108 QRS: -91 QRSD: 181 T: 89 QT: 412 QTc: 560 Interpretive Statements Sinus tachycardia RBBB and LAFB Electronically Signed On 09-05-2024 18:20:[address] Agustin Chung Please click the below link to view image of tracing.
[2024-09-05] MEDS: normal saline 1000ml 1,000 ML IV SCH (14:11)
[2024-09-05] MEDS: Permethrin 1% 59ml topical rinse TP ONE (16:55)
[2024-09-05 19:00] VITALS: BP 155/79; PULSE 100; RESP 24; TEMP 98; O2SAT 95
--- NOTE | 2024-09-05 19:35 | HISTORY AND PHYSICAL ---
History & Physical Providers to CC ~ History of Present Illness Reason for Admit\Complaint: Altered mental status History of Present Illness Patient is a 59-year-old woman brought in by paramedics from the [place]. Patient is unable to provide any history barely responded to verbal commands most of the history is from obtained from ER records. In [place] they thought that she is not breathing and they started the bag and mask ventilation. Paramedics also found her oxygenation levels low. Last hospitalization was July and discharged on July 25 for acute metabolic encephalopathy, respiratory failure, COPD exacerbation and sepsis and acute on chronic heart failure and right-sided pleural effusion with thoracentesis. Further workup done in ER potassium 2.8 WBC 15.0 patient was afebrile and x-ray chest shows signs of right pleural effusion. The toes was swollen and signs of unstaged necrotic wound present over right 5th finger. Allergies: Coded Allergies: Penicillins (Verified Allergy, Unknown, HIVES, 08/02/24) TOLERATING CEFEPIME 01/2024 Home Medications Home Medications Active Furosemide 20 Mg Tablet 1 Tab PO DAILY 30 Days Combivent Respimat Inhal [place] (Albuterol/Ipratropium) 20 Mcg-100 Mcg/Actuation Aer.w.adap 2 Puffs IH Q4H PRN Insulin Lispro Tonny Kwikpen (Insulin Lispro) 100 Unit/Ml Ins.pen.hf 4 Unit SQ ACHS Basaglar Kwikpen U-100 (Insulin Glargine,Hum.rec.anlog) 100 Unit/Ml (3 Ml) Insuln.pen 25 Units SQ QPM Metoprolol Succinate 25 Mg Tab.sr.24h 1 Tab PO DAILY 30 Days Lisinopril 5 Mg Tablet 5 Mg PO DAILY Clopidogrel (Clopidogrel Bisulfate) 75 Mg Tablet 75 Mg PO DAILY Do not stop medication unless instructed by prescriber. Symbicort 80-4.5 Mcg Inhaler (Budesonide/Formoterol Fumarate) 80 Mcg-4.5 Mcg/Actuation Hfa.aer.ad 2 Puffs INH Q12H 30 Days Amlodipine Besylate 10 Mg Tablet 1 Tab PO DAILY 30 Days Lipitor* (Atorvastatin Calcium) 40 Mg Tablet 1 Tab PO DAILY 30 Days Cordarone (Amiodarone HCl) 200 Mg Tablet 200 Mg PO DAILY 30 Days Eliquis (Apixaban) 5 Mg Tablet 1 Tab PO BID 30 Days Reported Unable to Obtain Medications (Non-Formulary Medication) Each pt is altered, no family available, unable to confirm what pharmacy or meds pt takes Past Medical History Past Medical History Unable to obtain Past Surgical History Surgical History Comment Unable to obtain Family History Family History: FH: skin cancer Maternal Grandmother Past Social History Social History Comment Homelessness lives in [place] ROS ROS Unable to obtain Exam Vitals: Vital Signs Date Time Temp Pulse Resp B/P (MAP) Pulse Ox O2 Delivery O2 Flow Rate FiO2 09/05/24 18:30 98 09/05/24 12:00 98.4 20 122/67 (85) 98 Room Air 09/05/24 09:53 4.0 General: General-patient not in any acute distress, chronically ill-appearing, lethargic HEENT-atraumatic normocephalic, neck supple without elevated JVD, no thyromegaly or carotid bruit. No lymphadenopathy bilaterally. Eyes-no icterus or pallor seen in eyes Chest-decreased breath sounds to auscultation bilaterally, breathing nonlabored no tachypnea, no wheezing, Heart-S1-S2 normal, regular heart rate no murmur Abdomen bowel sounds positive on auscultation, soft nondistended nontender no guarding, no rigidity Skin -Right lower extremity more swollen as compared to left. he toes was swollen and signs of unstaged necrotic wound present over right 5th finger. Neurology-patient is lethargic not responded to verbal commands Extremity- 1 plus pedal edema over upper and lower extremities. not able to move all 4 extremities Psychiatry - patient is confused, not agitated , not cooperated during physical examination Diagnostic Data Last Recorded Lab Results: 09/05/24 0854 09/05/24 0854 Additional Plan Patient is a 59-year-old woman brought in by paramedics from the [place]. Patient is unable to provide any history barely responded to verbal commands Last hospitalization was July and discharged on July 25 for acute metabolic encephalopathy, respiratory failure, COPD exacerbation and sepsis and acute on chronic heart failure and right-sided pleural effusion with thoracentesis. patient is admitted for potassium 2.8 WBC 15.0 patient was afebrile and x-ray chest shows signs of right pleural effusion. The toes was swollen and signs of unstaged necrotic wound present over right 5th finger. As per nursing staff they also noticed the bugs and lice on her body and contact precautions ordered. Patient is started on IV antibiotic and IV diuretic but at the same time she shows signs of septic low-dose of IV fluids also started she clinically appears dry We will do home medication reconciliation once updated in medical record system by nursing staff or pharmacist. Patient is full code by default. We will closely monitor patient's vitals and labs and re-evaluate patient in a.m.. Date of Service: Sep 05, 2024 Billing Provider: ALTAGRACIA PHELPS MD Common Visit Codes: [id number] INP/OBS CARE (HIGH) ALTAGRACIA PHELPS MD Sep 05, 2024 19:34
[2024-09-05] MEDS: heparin, porcine 5000 units/ml vial SQ SCH (20:38)
[2024-09-05 22:00] VITALS: BP 171/95; PULSE 122; RESP 29; TEMP 100.5; O2SAT 100
[2024-09-05 22:05] VITALS: BP 180/80
[2024-09-05] MEDS: metoprolol succinate 25mg (24-HOUR) SR. Tablet PO SCH (22:30)
[2024-09-05] MEDS ORDERED: acetaminophen 1,000mg/100ml IV 100 ML IV ONE (22:48)
[2024-09-05] MEDS: metoprolol tartrate 1mg/ml inj IV ONE (22:48)
[2024-09-05] MEDS: acetaminophen 1,000mg/100ml IV 100 ML IV ONE (22:56)
[2024-09-05 23:00] VITALS: BP 154/80
[2024-09-05] MEDS: ondansetron/PF 4mg/2ml inj IV PRN (23:46)
[2024-09-06] VITALS (10 sets, daily range): BP systolic 95–148; BP diastolic 47–74; PULSE 81–100; RESP 15–22; TEMP 97.1–98.3; O2SAT 92–99
[2024-09-06 00:05] LABS: LEUKOCYTE ESTERASE ,URINE NEGATIVE (Neg); NITRITES, URINE NEGATIVE (Neg); OCCULT BLOOD,URINE MODERATE (Neg)
[2024-09-06 00:06] LABS: UA COLLECTION TYPE NON-SPECIFIED
[2024-09-06 00:12] LABS: MUCUS STRANDS FEW /LPF (Neg)
[2024-09-06 00:13] LABS: URIC ACID CRYSTALS FEW /HPF (NEGATIVE)
[2024-09-06 00:14] LABS: SQUAMOUS EPITHELIAL CELL,UR MODERATE /LPF (FEW)
[2024-09-06 00:20] LABS: URINE AMPHETAMINE SCREEN POSITIVE (Neg); URINE BARBITUATE SCREEN NEGATIVE (Neg); URINE BENZODIAZEPINES SCREEN NEGATIVE (Neg); URINE CANNABINOID SCREEN NEGATIVE (Neg); URINE COCAINE SCREEN NEGATIVE (Neg); URINE METHADONE SCREEN NEGATIVE (Neg); URINE OPIATE SCREEN NEGATIVE (Neg); URINE PHENCYCLIDINE SCREEN NEGATIVE (Neg)
[2024-09-06] MEDS: CefTRIAXone 2gm/D5W 50ml BAG 50 ML IV SCH (08:47)
[2024-09-06 09:27] LABS: MEAN PLATELET VOLUME 8.7 FL (7.4-10.4); RED CELL DISTRIBUTION WIDTH 15.0 % (11.5-14.5)
[2024-09-06 09:42] LABS: CREATININE 0.91 MG/DL (0.40-0.90); TOTAL CARBON DIOXIDE 23.4 MMOL/L (24-32); eCRCL 60 ML/MIN; eGFR 63 ML/MIN
[2024-09-06] MEDS: albuterol 2.5 MG/3 ML nebule NEB PRN (17:37)
--- NOTE | 2024-09-06 18:21 | PROGRESS NOTE ---
Daily Progress Note Providers to CC ~ Antibiotic Timeout Antibiotic Ordered?: Yes Subjective Seen in her room she was awake and able to communicate today. Wound care taking care of patient for right lower extremity blister and 5th toe necrotic unstaged wound. Objective Vital Signs Date Time Temp Pulse Resp B/P (MAP) Pulse Ox O2 Delivery O2 Flow Rate FiO2 09/06/24 17:48 86 20 Room Air 0.0 96 09/06/24 17:39 94 09/06/24 15:00 97.6 96/47 (63) Result Diagram: 09/06/24 0856 09/06/24 0856 General-patient not in any acute distress, chronically ill-appearing, not lethargic HEENT-atraumatic normocephalic, neck supple without elevated JVD, no thyromegaly or carotid bruit. No lymphadenopathy bilaterally. Eyes-no icterus or pallor seen in eyes Chest-decreased breath sounds to auscultation bilaterally, breathing nonlabored no tachypnea, no wheezing, Heart-S1-S2 normal, regular heart rate no murmur Abdomen bowel sounds positive on auscultation, soft nondistended nontender no guarding, no rigidity Skin -Right lower extremity more swollen as compared to left. he toes was swollen and signs of unstaged necrotic wound present over right 5th finger. Blister present over the right foot heel Neurology-patient is not lethargic responded to verbal commands Extremity- 1 plus pedal edema over upper and lower extremities. able to move all 4 extremities Psychiatry - patient is not confused, not agitated , cooperated during physical examination Problem\Assessment\Plan Patient is a 59-year-old woman brought in by paramedics from the [place]. Patient is unable to provide any history barely responded to verbal commands Last hospitalization was July and discharged on July 25 for acute metabolic encephalopathy, respiratory failure, COPD exacerbation and sepsis and acute on chronic heart failure and right-sided pleural effusion with thoracentesis. 09/05/24- patient is admitted for potassium 2.8 WBC 15.0 patient was afebrile and x-ray chest shows signs of right pleural effusion. The toes was swollen and signs of unstaged necrotic wound present over right 5th finger. As per nursing staff they also noticed the bugs and lice on her body and contact precautions ordered. Patient is started on IV antibiotic and IV diuretic but at the same time she shows signs of septic low-dose of IV fluids also started she clinically appears dry 09/06/24- old chart reviewed from July 2024. Patient was recently discharged with these underlying diagnosis Acute metabolic encephalopathy -resolved Acute hypoxemic respiratory failure - resolved COPD exacerbation Sepsis Acute on chronic heart failure with preserved ejection fraction, EF: 60 Right-sided pleural effusion (recurrent) with probably aspiration pneumonia SVT with aberrancy, prolonged QTC, POA History of chronic AFib Hypertensive emergency with the elevated troponin-improved History of HTN Prerenal ARMANDO probably secondary to renal tubular stasis Substance use disorder Insulin dependent diabetes mellitus CAD status post stenting and SFA (Rt) CVA/TIA Multiple sclerosis Hep C # home medication reconciliation updated in medical record system # substance abuse use( meth use )- substance abuse navigator and school social worker consultation ordered. # Patient is full code by default. Patient's current condition is guarded we will continue to follow from hospitalist team in a.m. Date of Service: Sep 06, 2024 Billing Provider: ALTAGRACIA PHELPS MD Common Visit Codes: [id number] INP/OBS CARE(HIGH) ALTAGRACIA PHELPS MD Sep 06, 2024 18:21
[2024-09-06] MEDS ORDERED: HYDROcodone/acetaminophen 5mg/325mg tablet PO PRN (18:35)
[2024-09-06] MEDS: insulin glargine (Lantus) pen - multi-dose SQ SCH (21:02)
[2024-09-06] MEDS: INSULIN LISPRO 100 UNIT/ML INSULN.PEN MULTI-DOSE SQ SCH (21:03)
[2024-09-06] MEDS: budesonide 0.5mg/2ml UD nebule IH SCH (21:08)
[2024-09-06] MEDS: ipratropium/albuterol 3ml nebule NEB SCH (21:08)
[2024-09-07] VITALS (14 sets, daily range): BP systolic 105–151; BP diastolic 59–81; PULSE 77–138; RESP 14–28; TEMP 97.2–98.3; O2SAT 90–98
[2024-09-07 06:06] LABS: MEAN PLATELET VOLUME 10.1 FL (7.4-10.4); RED CELL DISTRIBUTION WIDTH 14.7 % (11.5-14.5)
[2024-09-07 06:17] LABS: CREATININE 1.52 MG/DL (0.40-0.90); TOTAL CARBON DIOXIDE 25.6 MMOL/L (24-32); eCRCL 36 ML/MIN; eGFR 35 ML/MIN
[2024-09-07] MEDS ORDERED: metoprolol succinate 25mg (24-HOUR) SR. Tablet PO SCH (08:00)
[2024-09-07] MEDS: potassium Cl 20 mEq SR tablet PO PRN (09:10)
[2024-09-07] MEDS: normal saline 1000ml 1,000 ML IV SCH (14:56)
--- NOTE | 2024-09-07 15:33 | CARDIOLOGY REPORT ---
APPROVED REPORT EXAM: Comprehensive 2D, Doppler, and color-flow Echocardiogram. Patient Location: 30[address] Heart Rate: 92 bpm Rhythm: ATRIAL FIBRILLATION Indications CONGESTIVE HEART FAILURE COPD ATRIAL FIBRILLATION Retail Sales Specialist: Maria T WHITEHEAD MD Previous echo: [facility] EF 60%, mLVH, mMR, mTR, RVSP 36 mmHg. 2D Dimensions RVDd 3.5 cm LA Diam3.0 cm IVSd 1.5 (0.7-1.1cm) LVDd 4.5 cm PWd 1.5 (0.7-1.1cm) IVSs 1.9 (0.8-1.2cm) LVDs 3.1 (2.5-4.0cm) PWs 1.9 (0.8-1.2cm) LVOT Diameter 2.12 (1.8-2.4cm) LVEF(%) 60.0 (>50%) IVC 21.77 mmFS (%) 31.9 % SV 56.3 ml CO 5.1 L/min M-Mode Dimensions Aortic Root 2.86 (2.2-3.7cm) Aortic Cusp Exc 1.87 (1.5-2.0cm) Aortic Valve AoV Peak Jaylen. 169.0 cm/s AoV VTI 28.6 cm AO Peak GR. 11.4 mmHg AO Mean GR. 7 mmHg LVOT VTI 17.25 cm LVOT Peak Jaylen. 106.5 cm/s MALENA(VTI)/BSA 2.13 cm2/m2 MALENA (VTI) 2.13 cm2 Mitral Valve MV Peak Gr. 6 mmHg MV PHT 60 ms MVA (PHT) 3.67 cm2 MV CGcs388.3 cm/s Tricuspid Valve TR P. Velocity 326 cm/s RAP ESTIMATE 10 mmHg TR Peak Gr. 43 mmHg RVSP 53 mmHg LEFT VENTRICLE Normal LV size and function. Moderate concentric hypertrophy. Overall LVEF is 60%. RIGHT VENTRICLE RV is mildly dilated with normal function. Elevated right heart pressures as noted above. ATRIA The left atrium size is normal. AORTIC VALVE Trileaflet AV appears mildly sclerotic without stenosis. No insufficiency. MITRAL VALVE Mild MV annular calcification without stenosis. Trace regurgitation. TRICUSPID VALVE TV appears structurally normal with mild regurgitation. PULMONIC VALVE Normal PV without stenosis, physiologic insufficiency. GREAT VESSELS The aortic root is normal in size. IVC is dilated and collapses greater than 50% with inspiration. PERICARDIUM Normal pericardium. No effusion. Ascites is present. Other Information Study Quality: Adequate Conclusion Overall LVEF is 60%. Normal LV size and function. Moderate concentric hypertrophy. RV is mildly dilated with normal function. Elevated right heart pressures as noted above. Trileaflet AV appears mildly sclerotic without stenosis. No insufficiency. Mild MV annular calcification without stenosis. Trace regurgitation. TV appears structurally normal with mild regurgitation. Normal PV without stenosis, physiologic insufficiency. Normal pericardium. No effusion.
[2024-09-07] MEDS: lactose-reduced food (Ensure Enlive) - 237ml bottle PO SCH (18:00)
--- NOTE | 2024-09-07 20:00 | PROGRESS NOTE ---
Daily Progress Note Providers to CC ~ Antibiotic Timeout Antibiotic Ordered?: Yes Subjective Patient was resting in bed she informs me she has wants to get better Objective Vital Signs Date Time Temp Pulse Resp B/P (MAP) Pulse Ox O2 Delivery O2 Flow Rate FiO2 09/07/24 19:11 90 18 Nasal Cannula 2.0 28 09/07/24 19:03 98 09/07/24 15:00 97.3 105/59 (74) Result Diagram: 09/07/24 0541 09/07/24 0541 Gen. No acute distress alert and oriented 4 Lungs clear to ascultation bilaterally, no wheezes rales or rhonchi appreciated Heart normal sinus rhythm no murmurs rubs or clicks noted Abdomen soft nontender bowel sounds are normoactive Lower extremities no clubbing cyanosis, trace edema and mild erythema bilaterally Problem\Assessment\Plan Patient is a 59-year-old woman brought in by paramedics from the [place]. Patient is unable to provide any history barely responded to verbal commands Last hospitalization was July and discharged on July 25 for acute metabolic encephalopathy, respiratory failure, COPD exacerbation and sepsis and acute on chronic heart failure and right-sided pleural effusion with thoracentesis. 09/05/24- patient is admitted for potassium 2.8 WBC 15.0 patient was afebrile and x-ray chest shows signs of right pleural effusion. The toes was swollen and signs of unstaged necrotic wound present over right 5th finger. As per nursing staff they also noticed the bugs and lice on her body and contact precautions ordered. Patient is started on IV antibiotic and IV diuretic but at the same time she shows signs of septic low-dose of IV fluids also started she clinically appears dry 09/06/24- old chart reviewed from July 2024. Patient was recently discharged with these underlying diagnosis Acute metabolic encephalopathy -resolved Acute hypoxemic respiratory failure - resolved Acute exacerbation of chronic COPD Continue albuterol neb PRN Scheduled DuoNeb Scheduled budesonide nebs Sepsis chronic heart failure with preserved ejection fraction, EF: 60 No signs of acute exacerbation Right-sided pleural effusion (recurrent) with probably aspiration pneumonia Permanent AFib Continue metoprolol Apixaban for DVT and stroke prophylaxis History of HTN ARMANDO possibly secondary to renal tubular stasis The patient renal function worsens daily If continues to worsen then I will start IV fluids tomorrow Substance use disorder emergency services director evaluated the patient Insulin dependent diabetes mellitus And a hyper and hypoglycemic protocol On Lantus CAD status post stenting and SFA (Rt) CVA/TIA On Plavix Multiple sclerosis Hep C # Patient is full code by default. Date of Service: Sep 07, 2024 Billing Provider: TORIN REEDER DO Common Visit Codes: [id number] INP/OBS CARE(HIGH) TORIN REEDER DO Sep 07, 2024 20:00
[2024-09-07] MEDS: albuterol 2.5 MG/3 ML nebule NEB PRN (23:01)
[2024-09-07 23:51] LABS: ABG BASE EXCESS -0.6 mmol/L (-2.0-3.0); ABG HCO3 23.3 mmol/L (21.0-28.0); ABG OXYGEN SATURATION 86.2 % (94.0-98.0); ABG PCO2 (T) 35.1 mmHg (32.0-45.0); ABG PH (T) 7.437 (7.350-7.450); ABG PO2 (T) 48.4 mmHg (83.0-108.0); ALLEN'S TEST POSITIVE; FCOHb 0.6 % (0.5-1.5); FHHb 13.7 % (0.0-5.0); FIO2 28.0 mmHg/%; FLOW 2 L/min; FMetHb 0.1 % (0.0-1.5); FO2Hb 85.6 % (94.0-98.0); MODE nc; PATIENT TEMPERATURE 36.3; TOTAL HEMOGLOBIN 14.7 G/dl (12.0-16.0)
[2024-09-07] MEDS: metoprolol tartrate 1mg/ml inj IV ONE (23:53)
[2024-09-08] VITALS (14 sets, daily range): BP systolic 95–125; BP diastolic 44–67; PULSE 68–106; RESP 14–34; TEMP 96.7–98; O2SAT 92–100
--- NOTE | 2024-09-08 00:09 | RADIOLOGY REPORT ---
CHEST RADIOGRAPH Indication: MD Technique: Single frontal view of the chest was obtained COMPARISON: None FINDINGS: Lines and Tubes: None Lungs: Stable moderate right pleural effusion and right basilar pulmonary airspace disease. No pneumothorax. Cardiomediastinal contours: Cardiomegaly. Atherosclerotic vascular calcifications. Bones: Unremarkable IMPRESSION: 1. Right pleural effusion and basilar pulmonary airspace disease. 2. Cardiomegaly.
[2024-09-08 06:47] LABS: MEAN PLATELET VOLUME 10.9 FL (7.4-10.4); RED CELL DISTRIBUTION WIDTH 14.9 % (11.5-14.5)
[2024-09-08 07:21] LABS: CREATININE 1.49 MG/DL (0.40-0.90); TOTAL CARBON DIOXIDE 23.8 MMOL/L (24-32); eCRCL 37 ML/MIN; eGFR 36 ML/MIN
[2024-09-08] MEDS: Permethrin 1% 59ml topical rinse TP ONE (07:50)
[2024-09-08] MEDS ORDERED: budesonide 0.5mg/2ml UD nebule IH SCH (08:00)
--- NOTE | 2024-09-08 22:42 | PROGRESS NOTE ---
Daily Progress Note Providers to CC ~ Antibiotic Timeout Antibiotic Ordered?: Yes Subjective The patient is renal function has slightly improved today the patient is asked me when she is going to go home. The patient did a right pleural effusion and basilar pulmonary airspace disease and was restarted on Lasix. Objective Vital Signs Date Time Temp Pulse Resp B/P (MAP) Pulse Ox O2 Delivery O2 Flow Rate FiO2 09/08/24 21:17 87 18 Nasal Cannula 2.0 09/08/24 21:03 94 28 09/08/24 15:00 97.2 96/52 (67) Result Diagram: 09/08/24 0609/08/24620 Gen. No acute distress alert and oriented 4 Lungs clear to ascultation bilaterally, no wheezes rales or rhonchi appreciated Heart normal sinus rhythm no murmurs rubs or clicks noted Abdomen soft nontender bowel sounds are normoactive Lower extremities no clubbing cyanosis, trace edema and mild erythema bilaterally Problem\Assessment\Plan Patient is a 59-year-old woman brought in by paramedics from the [place]. Patient is unable to provide any history barely responded to verbal commands Last hospitalization was July and discharged on July 25 for acute metabolic encephalopathy, respiratory failure, COPD exacerbation and sepsis and acute on chronic heart failure and right-sided pleural effusion with thoracentesis. 09/05/24- patient is admitted for potassium 2.8 WBC 15.0 patient was afebrile and x-ray chest shows signs of right pleural effusion. The toes was swollen and signs of unstaged necrotic wound present over right 5th finger. As per nursing staff they also noticed the bugs and lice on her body and contact precautions ordered. Patient is started on IV antibiotic and IV diuretic but at the same time she shows signs of septic low-dose of IV fluids also started she clinically appears dry 09/06/24- old chart reviewed from July 2024. Patient was recently discharged with these underlying diagnosis Acute metabolic encephalopathy -resolved Acute hypoxemic respiratory failure - resolved Acute exacerbation of chronic COPD Continue albuterol neb PRN Scheduled DuoNeb Scheduled budesonide nebs Sepsis Acute exacerbation of chronic heart failure with preserved ejection fraction, EF: 60 Right-sided pleural effusion (recurrent) with probably aspiration pneumonia Restart Lasix Permanent AFib Continue metoprolol Apixaban for DVT and stroke prophylaxis History of HTN ARMANDO possibly secondary to renal tubular stasis The patient renal function worsens daily 09/08 function worsens will consult nephrology Substance use disorder coordinator of rehabilitation services evaluated the patient Insulin dependent diabetes mellitus And a hyper and hypoglycemic protocol On Lantus CAD status post stenting and SFA (Rt) CVA/TIA On Plavix Multiple sclerosis Hep C # Patient is full code by default. Date of Service: Sep 08, 2024 Billing Provider: TORIN REEDER DO Common Visit Codes: [id number] INP/OBS CARE(HIGH) TORIN REEDER DO Sep 08, 2024 22:42
[2024-09-09] VITALS (12 sets, daily range): BP systolic 131–145; BP diastolic 67–82; PULSE 82–92; RESP 16–25; TEMP 96.1–97.6; O2SAT 91–100
[2024-09-09 07:39] LABS: MEAN PLATELET VOLUME 9.8 FL (7.4-10.4); RED CELL DISTRIBUTION WIDTH 15.0 % (11.5-14.5)
[2024-09-09] MEDS ORDERED: glucagon, human recombinant 1mg kit SUBCUT PRN (08:10)
[2024-09-09] MEDS ORDERED: dextrose 50%-water 50ml dispensing syringe IV PRN (08:10)
[2024-09-09] MEDS ORDERED: DEXTROSE 15 GM of carb/4 tabs (each vial/BOTTLE has 4 tablets) PO PRN (08:10)
[2024-09-09] MEDS: dextrose 50%-water 50ml dispensing syringe IV PRN (08:16)
[2024-09-09 08:17] LABS: BANDS% (MANUAL) 3.0 % (0-10); LYMPHOCYTES % (MANUAL) 6.0 % (21-51); MONOCYTES % (MANUAL) 7.0 % (2-12); NEUTROPHILS % (MANUAL) 84.0 % (42-75)
[2024-09-09 08:20] LABS: PLATELET ESTIMATE DECREASED
[2024-09-09 08:50] LABS: CREATININE 0.90 MG/DL (0.40-0.90); TOTAL CARBON DIOXIDE 22.2 MMOL/L (24-32); eCRCL 61 ML/MIN; eGFR 64 ML/MIN
[2024-09-09] MEDS: INSULIN LISPRO 100 UNIT/ML INSULN.PEN MULTI-DOSE SQ SCH (19:38)
--- NOTE | 2024-09-09 20:31 | PROGRESS NOTE ---
Daily Progress Note Providers to CC ~ Antibiotic Timeout Antibiotic Ordered?: Yes Subjective The patient was hoping to be discharged today however her blood sugar was 50 this morning I have decreased her Lantus at night. The patient will also need physical therapy to work with her prior to being discharged Objective Vital Signs Date Time Temp Pulse Resp B/P (MAP) Pulse Ox O2 Delivery O2 Flow Rate FiO2 09/09/24 16:00 97.4 85 18 133/75 (94) 95 Nasal Cannula 2.0 09/09/24 15:28 28 Result Diagram: 09/09/24 0654 09/09/24 0654 Gen. No acute distress alert and oriented 4 Lungs clear to ascultation bilaterally, no wheezes rales or rhonchi appreciated Heart normal sinus rhythm no murmurs rubs or clicks noted Abdomen soft nontender bowel sounds are normoactive Lower extremities no clubbing cyanosis, trace edema and mild erythema bilaterally Problem\Assessment\Plan Patient is a 59-year-old woman brought in by paramedics from the [place]. Patient is unable to provide any history barely responded to verbal commands Last hospitalization was July and discharged on July 25 for acute metabolic encephalopathy, respiratory failure, COPD exacerbation and sepsis and acute on chronic heart failure and right-sided pleural effusion with thoracentesis. 09/05/24- patient is admitted for potassium 2.8 WBC 15.0 patient was afebrile and x-ray chest shows signs of right pleural effusion. The toes was swollen and signs of unstaged necrotic wound present over right 5th finger. As per nursing staff they also noticed the bugs and lice on her body and contact precautions ordered. Patient is started on IV antibiotic and IV diuretic but at the same time she shows signs of septic low-dose of IV fluids also started she clinically appears dry 09/06/24- old chart reviewed from July 2024. Patient was recently discharged with these underlying diagnosis Acute metabolic encephalopathy -resolved Acute hypoxemic respiratory failure - resolved Acute exacerbation of chronic COPD Continue albuterol neb PRN Scheduled DuoNeb Scheduled budesonide nebs Sepsis Acute exacerbation of chronic heart failure with preserved ejection fraction, EF: 60 Right-sided pleural effusion (recurrent) with probably aspiration pneumonia Restart Lasix Permanent AFib Continue metoprolol Apixaban for DVT and stroke prophylaxis History of HTN ARMANDO possibly secondary to renal tubular stasis The patient renal function worsens daily 09/08 function worsens will consult nephrology 09/09 renal function has normalized Substance use disorder director volunteer services evaluated the patient Insulin dependent diabetes mellitus And a hyper and hypoglycemic protocol On Lantus 09/09 the patient is hypoglycemic this morning her blood sugar 60 I have decreased her Lantus from 25 units q.h.s. to 18 units CAD status post stenting and SFA (Rt) CVA/TIA On Plavix Multiple sclerosis Hep C # Patient is full code by default. # disposition: PT priority in the a.m. for possible discharge Date of Service: Sep 09, 2024 Billing Provider: TORIN REEDER DO Common Visit Codes: [id number] INP/OBS CARE(HIGH) TORIN REEDER DO Sep 09, 2024 20:31
[2024-09-09] MEDS: insulin glargine (Lantus) pen - multi-dose SQ SCH (21:50)
[2024-09-10] VITALS (14 sets, daily range): BP systolic 126–159; BP diastolic 63–78; PULSE 80–104; RESP 18–26; TEMP 97.1–97.8; O2SAT 92–100
[2024-09-10] MEDS: INSULIN LISPRO 100 UNIT/ML INSULN.PEN MULTI-DOSE SQ ONE (02:03)
[2024-09-10 06:38] LABS: MEAN PLATELET VOLUME 9.3 FL (7.4-10.4); RED CELL DISTRIBUTION WIDTH 14.9 % (11.5-14.5)
[2024-09-10] MEDS: INSULIN LISPRO 100 UNIT/ML INSULN.PEN MULTI-DOSE SQ SCH (09:00)
--- NOTE | 2024-09-10 14:13 | RADIOLOGY REPORT ---
CHEST RADIOGRAPH Indication: dyspnea Technique: Single frontal view of the chest was obtained COMPARISON: DI CHEST,SINGLE VIEW on DOS: 09/07/24, DI CHEST,SINGLE VIEW on DOS: 09/05/24, DI CHEST,SING LE VIEW on DOS: 07/21/24, DI CHEST,SINGLE VIEW on DOS: 05/11/24, DI CHEST,SINGLE VIEW on DOS: 05/08/24 FINDINGS: Lines and Tubes: None Lungs: Multifocal airspace disease. Pleura: Small right pleural effusion No pneumothorax. Cardiomediastinal contours: Cardiomegaly Bones: Unremarkable IMPRESSION: Increased Pulmonary vascular congestion
[2024-09-10 14:56] LABS: CREATININE 1.03 MG/DL (0.40-0.90); TOTAL CARBON DIOXIDE 28.6 MMOL/L (24-32); eCRCL 53 ML/MIN; eGFR 55 ML/MIN
[2024-09-10] MEDS: lactose-reduced food (Ensure Enlive) - 237ml bottle PO SCH (15:15)
--- NOTE | 2024-09-10 21:08 | PROGRESS NOTE ---
Daily Progress Note Providers to CC ~ Antibiotic Timeout Antibiotic Ordered?: Yes Subjective The patient complains of being more short of breath and did appear dyspneic I ordered a chest x-ray which demonstrated findings consistent with congestive heart failure however there was no pleural effusion that could be tapped I started the patient back on IV Lasix 40 mg b.i.d. Objective Vital Signs Date Time Temp Pulse Resp B/P (MAP) Pulse Ox O2 Delivery O2 Flow Rate FiO2 09/10/24 20:57 95 18 Nasal Cannula 2.0 09/10/24 20:47 94 28 09/10/24 15:00 97.8 147/73 (97) Result Diagram: 09/10/24 0607 09/10/24 1420 Gen. No acute distress alert and oriented 4 Lungs faint coarse breath sounds scattered throughout all listening tello Heart normal sinus rhythm no murmurs rubs or clicks noted Abdomen soft nontender bowel sounds are normoactive Lower extremities no clubbing cyanosis, trace edema and mild erythema bilaterally Problem\Assessment\Plan Patient is a 59-year-old woman brought in by paramedics from the [place]. Patient is unable to provide any history barely responded to verbal commands Last hospitalization was July and discharged on July 25 for acute metabolic encephalopathy, respiratory failure, COPD exacerbation and sepsis and acute on chronic heart failure and right-sided pleural effusion with thoracentesis. 09/05/24- patient is admitted for potassium 2.8 WBC 15.0 patient was afebrile and x-ray chest shows signs of right pleural effusion. The toes was swollen and signs of unstaged necrotic wound present over right 5th finger. As per nursing staff they also noticed the bugs and lice on her body and contact precautions ordered. Patient is started on IV antibiotic and IV diuretic but at the same time she shows signs of septic low-dose of IV fluids also started she clinically appears dry 09/06/24- old chart reviewed from July 2024. Patient was recently discharged with these underlying diagnosis Acute metabolic encephalopathy -resolved Acute hypoxemic respiratory failure - resolved Acute exacerbation of chronic COPD Continue albuterol neb PRN Scheduled DuoNeb Scheduled budesonide nebs Sepsis Acute exacerbation of chronic heart failure with preserved ejection fraction, EF: 60 Right-sided pleural effusion (recurrent) with probably aspiration pneumonia 09/10 Lasix was restarted 40 mg IV b.i.d. Permanent AFib Continue metoprolol Apixaban for DVT and stroke prophylaxis History of HTN Blood pressure is under acceptable control ARMANDO possibly secondary to renal tubular stasis The patient renal function worsens daily 09/08 function worsens will consult nephrology 09/09 renal function has normalized Substance use disorder web services manager evaluated the patient Insulin dependent diabetes mellitus And a hyper and hypoglycemic protocol On Lantus 09/09 the patient is hypoglycemic this morning her blood sugar 60 I have decreased her Lantus from 25 units q.h.s. to 18 units CAD status post stenting and SFA (Rt) CVA/TIA On Plavix Multiple sclerosis Hep C # Patient is full code by default. # disposition: The patient has a large blister that ruptured on the bottom of her foot and did not do well with physical therapy and thus case management is working on rehab placement the patient and her are aware that this may occur outside of the area. Date of Service: Sep 10, 2024 Billing Provider: TORIN REEDER DO Common Visit Codes: [id number] INP/OBS CARE(HIGH) TORIN REEDER DO Sep 10, 2024 21:08
[2024-09-10] MEDS: insulin glargine (Lantus) pen - multi-dose SQ SCH (21:54)
[2024-09-11] VITALS (17 sets, daily range): BP systolic 134–154; BP diastolic 68–80; PULSE 84–91; RESP 16–25; TEMP 97.1–97.9; O2SAT 88–99
[2024-09-11 06:00] LABS: MEAN PLATELET VOLUME 9.1 FL (7.4-10.4); RED CELL DISTRIBUTION WIDTH 14.7 % (11.5-14.5)
[2024-09-11 06:26] LABS: CREATININE 0.83 MG/DL (0.40-0.90); TOTAL CARBON DIOXIDE 30.4 MMOL/L (24-32); eCRCL 66 ML/MIN; eGFR 70 ML/MIN
[2024-09-11 09:12] LABS: PRO BRAIN NATRIURETIC PEPTIDE 4258 PG/ML (0-125)
[2024-09-11 10:57] LABS: C DIFF ANTIGEN POSITIVE (NEGATIVE); C DIFF SPECIMEN=DIARRHEA? ACCEPTABLE; C DIFFICILE TOXINS A&B POSITIVE (Neg)
[2024-09-11] MEDS ORDERED: iohexol 300mg/ml 100ml inj. ONE (14:13)
[2024-09-11] MEDS: vancomycin 125 MG/5 ML UD oral SOLN.RECON 5mL oral syringe (FIRVANQ) PO SCH (15:54)
--- NOTE | 2024-09-11 18:53 | RADIOLOGY REPORT ---
Indication: Worsening respiratory failure Technique: CT axial images of the chest are obtained with intravenous contrast. Coronal and sagittal reformats were obtained. Radiation Dose Information: CTDI volume is 18 mGy. Dose-length product is 553 mGy*cm Comparison: CT CT CHEST W/ IV CONTRAST on DOS: 07/21/24, CT CT CHEST on DOS: 01/17/24 FINDINGS: The trachea is patent. No pneumothorax. Large right pleural effusion. Small left pleural effusion. Right pulmonary airspace atelectasis/ consolidation most pronounced within the right middle and lower lobes. Left lower lobe consolidation/atelectasis. Heart enlarged. Coronary artery calcification disease. Aortic atherosclerotic disease. Right axillary lymph nodes measuring up to 1.3 cm. Left axillary lymph nodes measuring up to 11 mm. Soft tissue edema/ anasarca. Bilateral breast skin thickening. Splenomegaly. Hepatic vascular calcifications. Iowr-wz-ovvraevu thoracic degenerative disc disease. Old anterior right rib fractures. Old anterior left rib fractures. IMPRESSION: Large right and small left pleural effusions. Bilateral pulmonary airspace consolidation/ atelectasis, imhoc-vaykdez-mpmg-left. Cardiomegaly, coronary artery calcification disease. Aortic atherosclerotic disease. Soft tissue edema /anasarca. Bilateral breast skin thickening and edema. Recommend correlation with mammography and breast ultras ound. Splenomegaly. Bilateral axillary lymphadenopathy. Other findings as described.
--- NOTE | 2024-09-11 20:46 | PROGRESS NOTE ---
Daily Progress Note Providers to CC ~ Antibiotic Timeout Antibiotic Ordered?: Yes Subjective The patient is oxygen demand up trended today was on 12 L of oxygen high-flow [place] currently on [address] scan of the chest was obtained which demonstrated a large right small left pleural effusion a thoracentesis is ordered however the patient is on apixaban and this medication will be held for 48 hours Objective Vital Signs Date Time Temp Pulse Resp B/P (MAP) Pulse Ox O2 Delivery O2 Flow Rate FiO2 09/11/24 20:30 90 16 High Flow [place] 7.0 09/11/24 20:22 99 09/11/24 20:18 28 09/11/24 18:00 97.9 150/80 (103) Result Diagram: 09/11/24 0519 09/11/24 0519 Gen. Mild respiratory distress alert and oriented 4 Lungs faint coarse breath sounds scattered throughout all listening tello Heart normal sinus rhythm no murmurs rubs or clicks noted Abdomen soft nontender bowel sounds are normoactive Lower extremities no clubbing cyanosis, trace edema and mild erythema bilaterally Problem\Assessment\Plan Patient is a 59-year-old woman brought in by paramedics from the [place]. Patient is unable to provide any history barely responded to verbal commands Last hospitalization was July and discharged on July 25 for acute metabolic encephalopathy, respiratory failure, COPD exacerbation and sepsis and acute on chronic heart failure and right-sided pleural effusion with thoracentesis. C difficile enterocolitis On p.o. vancomycin Acute metabolic encephalopathy -resolved Acute hypoxemic respiratory failure -worsening Secondary to HFpEF CT scan of the chest with IV contrast demonstrated a large right and small left pleural effusion A therapeutic and diagnostic thoracentesis is ordered with fluid culture and cytology Acute exacerbation of chronic COPD Continue albuterol neb PRN Scheduled DuoNeb Scheduled budesonide nebs Sepsis Acute exacerbation of chronic heart failure with preserved ejection fraction, EF: 60 Right-sided pleural effusion (recurrent) with probably aspiration pneumonia 09/10 Lasix was restarted 40 mg IV b.i.d. Permanent AFib Continue metoprolol Apixaban for DVT and stroke prophylaxis History of HTN Blood pressure is under acceptable control ARMANDO possibly secondary to renal tubular stasis The patient renal function worsens daily 09/08 function worsens will consult nephrology 09/09 renal function has normalized Substance use disorder director of perioperative services evaluated the patient Insulin dependent diabetes mellitus And a hyper and hypoglycemic protocol On Lantus 09/09 the patient is hypoglycemic this morning her blood sugar 60 I have decreased her Lantus from 25 units q.h.s. to 18 units CAD status post stenting and SFA (Rt) CVA/TIA On Plavix Multiple sclerosis Hep C # Patient is full code by default. # disposition: The patient has a large blister that ruptured on the bottom of her foot and did not do well with physical therapy and thus case management is working on rehab placement the patient and her are aware that this may occur outside of the area. Date of Service: Sep 11, 2024 Billing Provider: TORIN REEDER DO Common Visit Codes: [id number] INP/OBS CARE(HIGH) TORIN REEDER DO Sep 11, 2024 20:46
[2024-09-11] MEDS: insulin glargine (Lantus) pen - multi-dose SQ SCH (21:21)
[2024-09-12] VITALS (14 sets, daily range): BP systolic 129–171; BP diastolic 55–100; PULSE 76–94; RESP 14–20; TEMP 97.3–97.7; O2SAT 93–99
[2024-09-12] MEDS: HYDROcodone/acetaminophen 10/325mg tab PO PRN (09:03)
[2024-09-12] MEDS: hydrALAZINE 20mg/ml inj. IV ONE (11:49)
[2024-09-12] MEDS: DEXTROSE 15 GM of carb/4 tabs (each vial/BOTTLE has 4 tablets) PO PRN (11:50)
[2024-09-12] MEDS: INSULIN LISPRO 100 UNIT/ML INSULN.PEN MULTI-DOSE SQ SCH (13:54)
[2024-09-12 14:02] LABS: MEAN PLATELET VOLUME 8.3 FL (7.4-10.4); RED CELL DISTRIBUTION WIDTH 14.3 % (11.5-14.5)
[2024-09-12 14:24] LABS: CREATININE 0.89 MG/DL (0.40-0.90); TOTAL CARBON DIOXIDE 35.3 MMOL/L (24-32); eCRCL 61 ML/MIN; eGFR 65 ML/MIN
[2024-09-12 14:26] LABS: BANDS% (MANUAL) 3.0 % (0-10); EOSINOPHILS % (MANUAL) 5.0 % (0-6); LYMPHOCYTES % (MANUAL) 10.0 % (21-51); METAMYLEOCYTES% (MANUAL) 2.0 % (0-0); MONOCYTES % (MANUAL) 8.0 % (2-12); NEUTROPHILS % (MANUAL) 72.0 % (42-75)
[2024-09-12 14:27] LABS: PLATELET ESTIMATE NORMAL
--- NOTE | 2024-09-12 20:46 | PROGRESS NOTE ---
Daily Progress Note Providers to CC ~ Antibiotic Timeout Antibiotic Ordered?: No Subjective The patient is less dyspneic though she is still short of breath with Lasix on board, her diarrhea is slowly improving though she continues to have significant loose stools Objective Vital Signs Date Time Temp Pulse Resp B/P (MAP) Pulse Ox O2 Delivery O2 Flow Rate FiO2 09/12/24 20:19 84 16 Nasal Cannula 5.0 09/12/24 20:12 93 40 09/12/24 15:00 97.7 143/86 (105) Result Diagram: 09/12/24 1353 09/12/24 1353 Gen. Mild respiratory distress alert and oriented 4 Lungs faint coarse breath sounds scattered throughout all listening tello Heart normal sinus rhythm no murmurs rubs or clicks noted Abdomen soft nontender bowel sounds are normoactive Lower extremities no clubbing cyanosis, trace edema and mild erythema bilaterally Problem\Assessment\Plan Patient is a 59-year-old woman brought in by paramedics from the [place]. Patient is unable to provide any history barely responded to verbal commands Last hospitalization was July and discharged on July 25 for acute metabolic encephalopathy, respiratory failure, COPD exacerbation and sepsis and acute on chronic heart failure and right-sided pleural effusion with thoracentesis. C difficile enterocolitis Secondary to antibiotic use On p.o. vancomycin Acute metabolic encephalopathy -resolved Acute hypoxemic respiratory failure -worsening Secondary to HFpEF CT scan of the chest with IV contrast demonstrated a large right and small left pleural effusion A therapeutic and diagnostic thoracentesis is ordered with fluid culture and cytology 09/12 improving with Lasix on board continue respiratory therapy Acute exacerbation of chronic COPD Continue albuterol neb PRN Scheduled DuoNeb Scheduled budesonide nebs Sepsis Acute exacerbation of chronic heart failure with preserved ejection fraction, EF: 60 Right-sided pleural effusion (recurrent) with probably aspiration pneumonia 09/10 Lasix was restarted 40 mg IV b.i.d. Permanent AFib Continue metoprolol Apixaban for DVT and stroke prophylaxis History of HTN Blood pressure is under acceptable control ARMANDO possibly secondary to renal tubular stasis The patient renal function worsens daily 09/08 function worsens will consult nephrology 09/09 renal function has normalized Substance use disorder account services representative evaluated the patient Insulin dependent diabetes mellitus And a hyper and hypoglycemic protocol On Lantus 09/09 the patient is hypoglycemic this morning her blood sugar 60 I have decreased her Lantus from 25 units q.h.s. to 18 units CAD status post stenting and SFA (Rt) CVA/TIA On Plavix Multiple sclerosis Hep C # Patient is full code by default. # disposition: The patient has a large blister that ruptured on the bottom of her foot and did not do well with physical therapy and thus case management is working on rehab placement the patient and her are aware that this may occur outside of the area. Date of Service: Sep 12, 2024 Billing Provider: TORIN REEDER DO Common Visit Codes: [id number] INP/OBS CARE(HIGH) TORIN REEDER DO Sep 12, 2024 20:46
[2024-09-13] VITALS (9 sets, daily range): BP systolic 125–152; BP diastolic 63–94; PULSE 74–86; RESP 13–24; TEMP 97.4–98.6; O2SAT 94–97
[2024-09-13] MEDS: INSULIN LISPRO 100 UNIT/ML INSULN.PEN MULTI-DOSE SQ SCH (00:27)
[2024-09-13 11:56] LABS: BFSOURCE RIGHT PLEURAL FLD; PLEURAL FLUID PH 7.652 (7.63-7.65)
[2024-09-13 12:11] LABS: GLUCOSE,BODY FLUID 208 MG/DL; LDH,BODY FLUID 67 U/L
[2024-09-13 12:38] LABS: BF MESOTHELIAL CELLS FEW; BF RBC COUNT 122 /CU MM; BF WBC COUNT 244 /CU MM (0-1000); BFAPPEAR HAZY; BFCOLOR YELLOW; BFSOURCE RIGHT PLEURAL FLD; BFVOLUME 55 ML; LYMPHOCYTES,BODY FLUID 85 %; MONOCYTES,BODY FLUID 11 %; NEUTROPHILS,BODY FLUID 4 %
[2024-09-13 12:43] LABS: TOTAL PROTEIN,BODY FLUID < 2.0 G/DL
[2024-09-13] MEDS: lactose-reduced food (Ensure Enlive) - 237ml bottle PO ONE (13:31)
--- NOTE | 2024-09-13 15:05 | PROGRESS NOTE ---
Progress Note - Angio Providers to CC ~ Angio Progress Note: After risks benefits alt of right thoracentesis d/w pt and informed consent the procedure was done, yielding 1600cc of clear yellow fluid, samples obtained as well. No immed complications and EBL zero. Dictated. ANDREAS REYES MD Sep 13, 2024 15:05
[2024-09-13 15:48] LABS: MEAN PLATELET VOLUME 8.4 FL (7.4-10.4); RED CELL DISTRIBUTION WIDTH 14.4 % (11.5-14.5)
[2024-09-13 16:09] LABS: CREATININE 0.97 MG/DL (0.40-0.90); TOTAL CARBON DIOXIDE 36.1 MMOL/L (24-32); eCRCL 56 ML/MIN; eGFR 59 ML/MIN
--- NOTE | 2024-09-13 17:44 | RADIOLOGY REPORT ---
Ultrasound-guided right Thoracentesis Clinical information: Shortness of breath, pleural effusion PRE-PROCEDURE DIAGNOSIS: Same POST-PROCEDURE DIAGNOSIS: Same Complications: None ESTIMATED BLOOD LOSS: 0 PROCEDURE: The nature, alternatives, and risks were discussed with the patient and informed consent was disclosed. The patient was positioned upright and ultrasound was used to examine the right posterior chest. An appropriate position was marked at the skin. After sterile preparation and draping, 1% Lidocaine 10 mL subcutaneous anesthesia was administered. The pleural space was entered with a 5 [place] Yueh catheter and approximately 1600 mL of clear yellow fluid was removed. A sample was sent to the lab. The patient tolerated the procedure well without apparent acute complications. FINDINGS: Large right pleural effusion IMPRESSION: 1. Successful therapeutic and diagnostic right thoracentesis.
--- NOTE | 2024-09-13 18:49 | PROGRESS NOTE ---
Daily Progress Note Providers to CC ~ Antibiotic Timeout Antibiotic Ordered?: No Subjective The patient's diarrhea is improving and the patient did better with physical therapy today. The patient is oxygen demand and dyspnea has improved significantly status post thoracentesis were 1600 cc were drained from the right lung. Objective Vital Signs Date Time Temp Pulse Resp B/P (MAP) Pulse Ox O2 Delivery O2 Flow Rate FiO2 09/13/24 15:20 80 24 Nasal Cannula 4.0 09/13/24 15:12 95 36 09/13/24 11:04 125/67 (86) 09/13/24 10:00 97.4 Result Diagram: 09/13/24 1513 09/13/24 1513 Gen. No acute distress alert and oriented 4 Lungs Clear to ascultation bilaterally, no wheezes/ rales or rhonchi appreciated Heart normal sinus rhythm no murmurs rubs or clicks noted Abdomen soft nontender bowel sounds are normoactive Lower extremities no clubbing cyanosis, trace edema and mild erythema bilaterally Problem\Assessment\Plan Patient is a 59-year-old woman brought in by paramedics from the [place]. Patient is unable to provide any history barely responded to verbal commands Last hospitalization was July and discharged on July 25 for acute metabolic encephalopathy, respiratory failure, COPD exacerbation and sepsis and acute on chronic heart failure and right-sided pleural effusion with thoracentesis. C difficile enterocolitis Secondary to antibiotic use On p.o. vancomycin Acute metabolic encephalopathy -resolved Acute hypoxemic respiratory failure -worsening Secondary to HFpEF CT scan of the chest with IV contrast demonstrated a large right and small left pleural effusion 09/12 improving with Lasix on board continue respiratory therapy 09/13 status post therapeutic and diagnostic thoracentesis with fluid culture and cytology- 1600 cc were drained Acute exacerbation of chronic COPD Continue albuterol neb PRN Scheduled DuoNeb Scheduled budesonide nebs Sepsis Acute exacerbation of chronic heart failure with preserved ejection fraction, EF: 60 Right-sided pleural effusion (recurrent) with probably aspiration pneumonia 09/10 Lasix was restarted 40 mg IV b.i.d. Permanent AFib Continue metoprolol Apixaban for DVT and stroke prophylaxis History of HTN Blood pressure is under acceptable control ARMANDO possibly secondary to renal tubular stasis The patient renal function worsens daily 09/08 function worsens will consult nephrology 09/09 renal function has normalized Substance use disorder resident services manager evaluated the patient Insulin dependent diabetes mellitus And a hyper and hypoglycemic protocol On Lantus 09/09 the patient is hypoglycemic this morning her blood sugar 60 I have decreased her Lantus from 25 units q.h.s. to 18 units 09/13 on 11 units of Lantus and 5 units of insulin PC CAD status post stenting and SFA (Rt) CVA/TIA On Plavix Multiple sclerosis Hep C # Patient is full code by default. # disposition: The patient has a large blister that ruptured on the bottom of her foot and did not do well with physical therapy and thus case management is working on rehab placement the patient and her are aware that this may occur outside of the area. Date of Service: Sep 13, 2024 Billing Provider: TORIN REEDER DO Common Visit Codes: [id number] INP/OBS CARE(HIGH) TORIN REEDER DO Sep 13, 2024 18:49
[2024-09-14 02:00] VITALS: BP 124/53; PULSE 74; RESP 18; TEMP 98.4; O2SAT 97
[2024-09-14 06:00] VITALS: BP 125/58; PULSE 72; RESP 20; TEMP 96.5; O2SAT 96
[2024-09-14 11:00] VITALS: BP 134/70; PULSE 83; RESP 18; TEMP 97.6; O2SAT 95
[2024-09-14 12:21] LABS: MEAN PLATELET VOLUME 8.5 FL (7.4-10.4); RED CELL DISTRIBUTION WIDTH 14.6 % (11.5-14.5)
--- NOTE | 2024-09-14 12:36 | PROGRESS NOTE ---
Daily Progress Note Providers to CC ~ Antibiotic Timeout Antibiotic Ordered?: Yes Subjective RN reports that patient has been refusing all medications this morning. Patient is on isolation Objective Vital Signs Date Time Temp Pulse Resp B/P (MAP) Pulse Ox O2 Delivery O2 Flow Rate FiO2 09/14/24 06:30 89 09/14/24 02:00 98.4 18 124/53 (76) 97 High Flow Nasal Cannula 4.0 09/13/24 15:12 36 Result Diagram: 09/14/24 1140 09/13/24 1513 Awake unpleasant upset, does not want to get treated HEENT normocephalic atraumatic extraocular movements are Neck supple, no JVD Chest: Clear to auscultation, no wheezes crackles rhonchi Heart: Regular rate rhythm, no murmur or gallop rub Abdomen is soft, nontender, no organomegaly Extremities no cyanosis clubbing or edema Neuro exam grossly nonfocal. Other Results Medications reviewed Problem\Assessment\Plan Patient is a 59-year-old woman brought in by paramedics from the [place]. Last hospitalization was July and discharged on July 25 for acute metabolic encephalopathy, respiratory failure, COPD exacerbation and sepsis and acute on chronic heart failure and right-sided pleural effusion with thoracentesis. 1. . C difficile enterocolitis : Secondary to antibiotic use . Continue p.o. vancomycin 2. Acute metabolic encephalopathy -resolved 3. Acute hypoxemic respiratory failure : Secondary to HFpEF CT scan of the chest with IV contrast demonstrated a large right and small left pleural effusion. On 09/13 patient underwent therapeutic and diagnostic thoracentesis with fluid culture and cytology- 1600 cc were drained. 4. Acute exacerbation of chronic COPD Continue albuterol neb PRN Scheduled DuoNeb Scheduled budesonide nebs 5.Permanent AFib :Continue metoprolol and Apixaban for DVT and stroke prophylaxis 6.History of HTN Blood pressure is under acceptable control 7.ARMANDO possibly secondary to renal tubular stasis 8.Substance use disorder financial services agent evaluated the patient 9.Insulin dependent diabetes mellitus on hyper/hypoglycemia protocol 10. CAD status post stenting and SFA (Rt) 11. History of CVA/TIA :On Plavix # Patient is full code by default. # Disposition: The patient has a large blister that ruptured on the bottom of her foot and did not do well with physical therapy and thus case management is working on rehab placement the patient and her are aware that this may occur outside of the area. Date of Service: Sep 14, 2024 Billing Provider: EMMETT HERNANDEZ MD Common Visit Codes: [id number] INP/OBS CARE(HIGH) EMMETT HERNANDEZ MD Sep 14, 2024 12:36
[2024-09-14 12:39] LABS: CREATININE 1.00 MG/DL (0.40-0.90); TOTAL CARBON DIOXIDE 35.9 MMOL/L (24-32); eCRCL 55 ML/MIN; eGFR 57 ML/MIN
[2024-09-14 18:00] VITALS: BP 142/58; PULSE 52; RESP 18; TEMP 97.6; O2SAT 96
[2024-09-14 20:00] VITALS: RESP 18; O2SAT 99
[2024-09-14 22:00] VITALS: BP 143/78; PULSE 74; RESP 18; TEMP 97.6; O2SAT 99
[2024-09-15] VITALS (8 sets, daily range): BP systolic 104–140; BP diastolic 51–82; PULSE 71–92; RESP 16–24; TEMP 97.2–99.7; O2SAT 94–99
[2024-09-15 06:27] LABS: MEAN PLATELET VOLUME 8.5 FL (7.4-10.4); RED CELL DISTRIBUTION WIDTH 14.1 % (11.5-14.5)
[2024-09-15 06:38] LABS: CREATININE 0.87 MG/DL (0.40-0.90); TOTAL CARBON DIOXIDE 33.1 MMOL/L (24-32); eCRCL 63 ML/MIN; eGFR 67 ML/MIN
[2024-09-15] MEDS ORDERED: DEXTROSE 15 GM of carb/4 tabs (each vial/BOTTLE has 4 tablets) PO PRN ×2 (11:00)
[2024-09-15] MEDS ORDERED: dextrose 50%-water 50ml dispensing syringe IV PRN ×2 (11:00)
[2024-09-15] MEDS: INSULIN LISPRO 100 UNIT/ML INSULN.PEN MULTI-DOSE SQ SCH (12:18)
--- NOTE | 2024-09-15 13:33 | RADIOLOGY REPORT ---
CHEST RADIOGRAPH Indication: Post-thoracentesis Technique: Single frontal view of the chest was obtained COMPARISON: DI CHEST,SINGLE VIEW on DOS: 09/10/24, DI CHEST,SINGLE VIEW on DOS: 09/07/24, DI CHEST,SING LE VIEW on DOS: 09/05/24, DI CHEST,SINGLE VIEW on DOS: 07/21/24, DI CHEST,SINGLE VIEW on DOS: 05/11/24 FINDINGS: Lines and Tubes: None Lungs: Right lower lobe airspace disease. Pleura: Decreased small right pleural effusion No pneumothorax. Cardiomediastinal contours: Unremarkable Bones: Unremarkable IMPRESSION: No appreciable pneumothorax post thoracentesis.
--- NOTE | 2024-09-15 13:56 | PROGRESS NOTE ---
Daily Progress Note Providers to CC ~ Antibiotic Timeout Antibiotic Ordered?: Yes Subjective Patient has no new complaints. Seen resting comfortably. Objective Vital Signs Date Time Temp Pulse Resp B/P (MAP) Pulse Ox O2 Delivery O2 Flow Rate FiO2 09/15/24 10:47 97.5 83 16 104/57 (73) 96 Nasal Cannula 4.0 09/13/24 15:12 36 Result Diagram: 09/15/24 0538 09/15/24 0538 Awake alert cooperative in no acute distress HEENT normocephalic atraumatic extraocular movements are Neck supple, no JVD Chest: Clear to auscultation, no wheezes crackles rhonchi Heart: Regular rate rhythm, no murmur or gallop rub Abdomen is soft, nontender, no organomegaly Extremities no cyanosis clubbing or edema Neuro exam grossly nonfocal. Rectal tube noted Other Results Medications reviewed Problem\Assessment\Plan Patient is a 59-year-old woman brought in by paramedics from the [place]. Last hospitalization was July and discharged on July 25 for acute metabolic encephalopathy, respiratory failure, COPD exacerbation and sepsis and acute on chronic heart failure and right-sided pleural effusion with thoracentesis. 1. . C difficile enterocolitis : Secondary to antibiotic use . Continue p.o. vancomycin. Rectal tube to be discontinued once diarrhea resolves. 2. Acute metabolic encephalopathy -resolved 3. Acute hypoxemic respiratory failure : Secondary to HFpEF CT scan of the chest with IV contrast demonstrated a large right and small left pleural effusion. On 09/13 patient underwent therapeutic and diagnostic thoracentesis with fluid culture and cytology- 1600 cc were drained. 4. Acute exacerbation of chronic COPD Continue albuterol neb PRN Scheduled DuoNeb Scheduled budesonide nebs 5.Permanent AFib :Continue metoprolol and Apixaban for DVT and stroke prophylaxis 6.History of HTN Blood pressure is under acceptable control 7.ARMANDO possibly secondary to renal tubular stasis 8.Substance use disorder instructional support services director evaluated the patient 9.Insulin dependent diabetes mellitus on hyper/hypoglycemia protocol 10. CAD status post stenting and SFA (Rt) 11. History of CVA/TIA :On Plavix # Patient is full code by default. # Disposition: The patient has a large blister that ruptured on the bottom of her foot and did not do well with physical therapy and thus case management is working on rehab placement the patient and her are aware that this may occur outside of the area. Date of Service: Sep 15, 2024 Billing Provider: EMMETT HERNANDEZ MD Common Visit Codes: [id number] INP/OBS CARE(HIGH) MEMETT HERNANDEZ MD Sep 15, 2024 13:56
[2024-09-15] MEDS: insulin glargine (Lantus) pen - multi-dose SQ SCH (21:35)
[2024-09-16 05:00] VITALS: BP 146/77; PULSE 82; RESP 16; TEMP 98.2; O2SAT 96
[2024-09-16 11:00] VITALS: BP 112/59; PULSE 80; RESP 16; TEMP 98.2; O2SAT 97
--- NOTE | 2024-09-16 15:12 | PROGRESS NOTE ---
Daily Progress Note Providers to CC ~ Antibiotic Timeout Antibiotic Ordered?: Yes Subjective No new complaints, says she has been told by Dr. Patel" that she can go home tomorrow . Remains in isolation. Objective Vital Signs Date Time Temp Pulse Resp B/P (MAP) Pulse Ox O2 Delivery O2 Flow Rate FiO2 09/16/24 11:00 98.2 80 16 112/59 (76) 97 Room Air 0.0 36 Result Diagram: 09/15/24 0538 09/15/24 0538 Awake alert cooperative in no acute distress HEENT normocephalic atraumatic extraocular movements are Neck supple, no JVD Chest: Clear to auscultation, no wheezes crackles rhonchi Heart: Regular rate rhythm, no murmur or gallop rub Abdomen is soft, nontender, no organomegaly Extremities no cyanosis clubbing or edema Neuro exam grossly nonfocal. Rectal tube previously noted has come out ( Per RN) Skin; Right foot bandaged. Other Results Medications reviewed Problem\\Assessment\\Plan Patient is a 59-year-old woman brought in by paramedics from the [place]. Last hospitalization was July and discharged on July 25 for acute metabolic encephalopathy, respiratory failure, COPD exacerbation and sepsis and acute on chronic heart failure and right-sided pleural effusion with thoracentesis. 1. C difficile enterocolitis : Secondary to antibiotic use . Continue p.o. vancomycin. Rectal tube came out. 2. Acute metabolic encephalopathy : Resolved 3. Acute hypoxemic respiratory failure : Secondary to HFpEF CT scan of the chest with IV contrast demonstrated a large right and small left pleural effusion. On 09/13 patient underwent therapeutic and diagnostic thoracentesis with fluid culture and cytology- 1600 cc were drained. Patient has no respiratory symptoms or breathing issues. 4. Acute exacerbation of chronic COPD Continue albuterol neb PRN Scheduled DuoNeb Scheduled budesonide nebs 5.Permanent A Fib : Continue metoprolol and Apixiban for DVT and stroke prophylaxis 6.History of HTN Blood pressure is under acceptable control 7.ARMANDO possibly secondary to renal tubular stasis 8.Substance use disorder counseling services director evaluated the patient 9. Insulin dependent diabetes mellitus on hyper/hypoglycemia protocol 10. CAD status post stenting and SFA (Rt) 11. History of CVA/TIA :On Plavix 12. Patient is full code by default. 13. Disposition: The patient has a large blister that ruptured on the bottom of her foot and did not do well with physical therapy and thus case management is working on rehab placement the patient and her are aware that this may occur outside of the area. Date of Service: Sep 16, 2024 Billing Provider: EMMETT HERNANDEZ MD Common Visit Codes: 63749-[id number] INP/OBS CARE(HIGH) EMMETT HERNANDEZ MD Sep 16, 2024 15:12
[2024-09-16 15:26] VITALS: PULSE 83; RESP 20; O2SAT 98
[2024-09-16 15:33] VITALS: PULSE 82; RESP 20
[2024-09-16 16:40] LABS: MEAN PLATELET VOLUME 9.1 FL (7.4-10.4); RED CELL DISTRIBUTION WIDTH 14.1 % (11.5-14.5)
[2024-09-16 16:45] LABS: CREATININE 0.98 MG/DL (0.40-0.90); TOTAL CARBON DIOXIDE 29.5 MMOL/L (24-32); eCRCL 56 ML/MIN; eGFR 58 ML/MIN
[2024-09-16] MEDS: Permethrin 1% 59ml topical rinse TP ONE (17:23)
[2024-09-16 18:00] VITALS: BP 119/58; PULSE 78; RESP 17; TEMP 98.3; O2SAT 93
[2024-09-16 22:00] VITALS: BP 117/55; PULSE 84; RESP 18; TEMP 97.2; O2SAT 96
[2024-09-17 05:43] LABS: MEAN PLATELET VOLUME 8.9 FL (7.4-10.4); RED CELL DISTRIBUTION WIDTH 14.7 % (11.5-14.5)
[2024-09-17 06:12] LABS: CREATININE 0.92 MG/DL (0.40-0.90); TOTAL CARBON DIOXIDE 29.5 MMOL/L (24-32); eCRCL 59 ML/MIN; eGFR 62 ML/MIN
[2024-09-17 09:00] VITALS: BP 143/46; PULSE 80; RESP 18; TEMP 97.8; O2SAT 98
[2024-09-17 10:00] VITALS: BP 132/60; PULSE 86; RESP 19; TEMP 98.2; O2SAT 96
--- NOTE | 2024-09-17 17:35 | PROGRESS NOTE ---
Daily Progress Note Providers to CC ~ Antibiotic Timeout Antibiotic Ordered?: Yes Subjective No new complaints, patient reports she is non ambulatory due to a back injury Objective Vital Signs Date Time Temp Pulse Resp B/P (MAP) Pulse Ox O2 Delivery O2 Flow Rate FiO2 09/17/24 10:00 98.2 86 19 132/60 (84) 96 Room Air 09/17/24 08:00 0.0 36 Result Diagram: 09/17/2441709/17/24417 Awake alert cooperative in no acute distress HEENT normocephalic atraumatic extraocular movements are Neck supple, no JVD Chest: Clear to auscultation, no wheezes crackles rhonchi Heart: Regular rate rhythm, no murmur or gallop rub Abdomen is soft, nontender, no organomegaly Extremities no cyanosis clubbing or edema Neuro exam grossly nonfocal. Rectal tube previously noted has come out ( Per RN) Skin; Right foot bandaged. Refer to photo documentation Other Results Medications reviewed Problem\Assessment\Plan Patient is a 59-year-old woman brought in by paramedics from the [place]. Last hospitalization was July and discharged on July 25 for acute metabolic encephalopathy, respiratory failure, COPD exacerbation and sepsis and acute on chronic heart failure and right-sided pleural effusion with thoracentesis. 1. C difficile enterocolitis : Secondary to antibiotic use . Continue p.o. vancomycin. Rectal tube came out. Patient is still having loose stools three to 4 times a day 2. Acute metabolic encephalopathy : Resolved. Patient is awake alert oriented 3. Acute hypoxemic respiratory failure : Resolved Secondary to HFpEF CT scan of the chest with IV contrast demonstrated a large right and small left pleural effusion. On 09/13 patient underwent therapeutic and diagnostic thoracentesis with fluid culture and cytology- 1600 cc were drained. Patient has no respiratory symptoms or breathing issues. 4. Acute exacerbation of chronic COPD: Resolved Continue albuterol neb PRN Scheduled DuoNeb Scheduled budesonide nebs 5.Permanent A Fib : Continue metoprolol and Apixiban for DVT and stroke prophylaxis 6.History of HTN Blood pressure is under acceptable control 7.ARMANDO possibly secondary to renal tubular stasis 8.Substance use disorder director water and waste services evaluated the patient 9. Insulin dependent diabetes mellitus on hyper/hypoglycemia protocol 10. CAD status post stenting and SFA (Rt) 11. History of CVA/TIA :On Plavix 12. Code status: Wishes to be full code 13. Nonambulatory at baseline from a prior chronic back injury: No acute issues. Pain control is adequate. 14. Hyponatremia / Azotemia : Monitor daily BMP , IVF Disposition: Awaiting rehab placement. Date of Service: Sep 17, 2024 Billing Provider: EMMETT HERNANDEZ MD Common Visit Codes: [id number] INP/OBS CARE(HIGH) EMMETT HERNANDEZ MD Sep 17, 2024 17:34
[2024-09-17 18:00] VITALS: BP 102/54; PULSE 64; RESP 16; TEMP 97.4; O2SAT 98
[2024-09-17] MEDS: normal saline 1000ml 1,000 ML IV SCH (18:05)
[2024-09-17 22:00] VITALS: BP 101/52; PULSE 69; RESP 16; TEMP 97.9; O2SAT 98
[2024-09-18] VITALS (7 sets, daily range): BP systolic 99–130; BP diastolic 51–61; PULSE 68–77; RESP 14–19; TEMP 97.4–98.7; O2SAT 93–98
[2024-09-18 04:32] LABS: MEAN PLATELET VOLUME 8.6 FL (7.4-10.4); RED CELL DISTRIBUTION WIDTH 14.6 % (11.5-14.5)
--- NOTE | 2024-09-18 12:48 | PATHOLOGY REPORT ---
[facility] [address] [place] [address] NON-DIRECTOR OF EDUCATION AND TRAINING CYTOLOGY REPORT CaseNumber: [id number] Surgeon:Higinio Lazcano M.D. CLINICAL INFORMATION CLINICAL INFORMATION: Shortness of breath and recurrent pleural effusion. DIAGNOSIS DIAGNOSIS: PLEURAL FLUID, RIGHT; THORACENTESIS - NEGATIVE FOR MALIGNANCY. MICROSCOPIC DESCRIPTION MICROSCOPIC DESCRIPTION: Prepared from the right pleural fluid were one Pap stained double cytospin s lide, one air-dried Diff-Quik stained slide, and one cell block which demonstrates scattered lymphocy deni, foamy macrophages, and occasional mesothelial cells. The mesothelial cells vary slightly from to one another. These medium to large sized cells have amph ophilic cytoplasm and round nuclei. The chromatin is fine. Occasional small nuclei are present. Some of these cells are found trapped within fibrin mesh. The background demonstrates a predominance of ly mphocytes and occasional histiocytes. Neutrophils are rare. There are no features of atypia or malign jaden. With respect to the mesothelial cells, there is no second population to suggest a malignant diagnosi s. (st) GROSS DESCRIPTION GROSS DESCRIPTION: Received labeled with the patient's name, number, and "Rt pleural fluid" is 7.5 mL of unfixed watery, clear, yellow fluid. Specific gravity is 1.015. One smear for Diff-Quik, one patricia ble cytospin slide, and one cell block are prepared. The cell block is submitted as A1. The time at [facility] the specimen was removed was 1105. The time at which the specimen was placed in formalin [id number] . (cs) Electronically signed by: Lexy Mccloud M.D. 09/17/2024 9:43:00 PM
--- NOTE | 2024-09-18 18:03 | PROGRESS NOTE ---
Daily Progress Note Providers to CC ~ Antibiotic Timeout Antibiotic Ordered?: Yes If Yes, Indications: C diff MRSA Education MRSA Education Provided to pt: N/A Objective Vital Signs Date Time Temp Pulse Resp B/P (MAP) Pulse Ox O2 Delivery O2 Flow Rate FiO2 09/18/24 15:14 69 16 Room Air 0.0 21 09/18/24 15:02 97 09/18/24 10:00 97.4 130/54 (79) Result Diagram: 09/18/24 0414 09/17/24 0418 Awake alert cooperative in no acute distress HEENT normocephalic atraumatic extraocular movements are Neck supple, no JVD Chest: Clear to auscultation, no wheezes crackles rhonchi Heart: Regular rate rhythm, no murmur or gallop rub Abdomen is soft, nontender, no organomegaly Extremities no cyanosis clubbing or edema Neuro exam grossly nonfocal. Rectal tube previously noted has come out ( Per RN) Skin; Right foot bandaged. Refer to photo documentation please Other Results Medications reviewed Problem\Assessment\Plan Patient is a 59-year-old woman brought in by paramedics from the [place]. Last hospitalization was July and discharged on July 25 for acute metabolic encephalopathy, respiratory failure, COPD exacerbation and sepsis and acute on chronic heart failure and right-sided pleural effusion with thoracentesis. 1. C difficile enterocolitis : Secondary to antibiotic use . Continue p.o. vancomycin. Rectal tube came out. Patient is still having loose stools three to 4 times a day 2. Acute metabolic encephalopathy : Resolved. Patient is awake alert oriented 3. Acute hypoxemic respiratory failure : Resolved Secondary to HFpEF CT scan of the chest with IV contrast demonstrated a large right and small left pleural effusion. On 09/13 patient underwent therapeutic and diagnostic thoracentesis with fluid culture and cytology- 1600 cc were drained. Patient has no respiratory symptoms or breathing issues. 4. Acute exacerbation of chronic COPD: Resolved Continue albuterol neb PRN Scheduled DuoNeb Scheduled budesonide nebs 5.Permanent A Fib : Continue metoprolol and Apixiban for DVT and stroke prophylaxis 6.History of HTN Blood pressure is under acceptable control 7.ARMANDO possibly secondary to renal tubular stasis 8.Substance use disorder media services specialist evaluated the patient 9. Insulin dependent diabetes mellitus on hyper/hypoglycemia protocol 10. CAD status post stenting and SFA (Rt) 11. History of CVA/TIA :On Plavix 12. Code status: Wishes to be full code 13. Nonambulatory at baseline from a prior chronic back injury: No acute issues. Pain control is adequate. 14. Hyponatremia / Azotemia : Monitor daily BMP , IVF 15 Head lice : Has been treated with Permethrin Disposition: Awaiting rehab placement and insurance authorization. Date of Service: Sep 18, 2024 Billing Provider: EMMETT HERNANDEZ MD Common Visit Codes: [id number] INP/OBS CARE(MOD) EMMETT HERNANDEZ MD Sep 18, 2024 18:03
[2024-09-19 05:06] LABS: MEAN PLATELET VOLUME 9.0 FL (7.4-10.4); RED CELL DISTRIBUTION WIDTH 14.5 % (11.5-14.5)
[2024-09-19 06:00] VITALS: BP 129/68; PULSE 73; RESP 14; TEMP 97.5; O2SAT 93
[2024-09-19 07:41] VITALS: PULSE 80; RESP 18; O2SAT 96
[2024-09-19 10:00] VITALS: BP 135/68; PULSE 87; RESP 17; TEMP 97.3; O2SAT 97
[2024-09-19] MEDS ORDERED: VANC25SO PO (10:11)
[2024-09-19 11:05] LABS: CREATININE 1.05 MG/DL (0.40-0.90); TOTAL CARBON DIOXIDE 25.2 MMOL/L (24-32); eCRCL 52 ML/MIN; eGFR 54 ML/MIN
--- NOTE | 2024-09-19 13:14 | DISCHARGE SUMMARY ---
Discharge Summary Providers to CC ~ Discharge Summary Admission Diagnosis: Hypokalemia acute on chronic diastolic CHF , Sepsis, right pleural effusion Hospital Course DATE OF ADMISSION: 09/05/2024 DATE OF DISCHARGE:09/19/2024 Discharge Diagnosis\Comment: C diff colitis Pleural effusion Head Lice Operations\Procedures: Thoracentesis Echocardiogram Consultants: SATHISH Complications: NONE Condition on DC: Stable New Medications: Vancomycin HCl (Firvanq) 25 Mg/Ml Soln.recon 125 MG PO Q6H for 7 Days, #120 ML Continued Medications: Amiodarone Hcl (Cordarone) 200 Mg Tablet 200 MG PO DAILY for 30 Days, #30 TAB Amlodipine Besylate (Amlodipine Besylate) 10 Mg Tablet 1 TAB PO DAILY for 30 Days, #30 TAB 0 Refills Apixaban (Eliquis) 5 Mg Tablet 1 TAB PO BID for 30 Days, #60 TAB 0 Refills Atorvastatin Calcium* (Lipitor*) 40 Mg Tablet 1 TAB PO DAILY for 30 Days, #30 TAB Budesonide/Formoterol Fumarate (Symbicort 80-4.5 Mcg Inhaler) 80 Mcg-4.5 Mcg/Actuation Hfa.aer.ad 2 PUFFS INH Q12H for 30 Days, #1 GM 0 Refills Clopidogrel Bisulfate (Clopidogrel) 75 Mg Tablet 75 MG PO DAILY, #30 TAB Do not stop medication unless instructed by prescriber. Insulin Glargine,Hum.rec.anlog (Basaglar Kwikpen U-100) 100 Unit/Ml (3 Ml) Insuln.pen 25 UNITS SQ QPM, #9 ML Insulin Lispro (Insulin Lispro Tonny Kwikpen) 100 Unit/Ml Ins.pen.hf 4 UNIT SQ ACHS, #500 UNITS Ipratropium/Albuterol Sulfate (Combivent Respimat Inhal [place]) 20 Mcg-100 Mcg/Actuation Aer.w.adap 2 PUFFS IH Q4H PRN for SOB or wheezing, #1 INH 1 Refill Lisinopril (Lisinopril) 5 Mg Tablet 5 MG PO DAILY, #30 TAB Metoprolol Succinate (Metoprolol Succinate) 25 Mg Tab.sr.24h 1 TAB PO DAILY for 30 Days, #30 TAB 0 Refills Unable to Obtain Medications (Unable to Obtain Medications) Each pt is altered, no family available, unable to confirm what pharmacy or meds pt takes Discontinued Medications: Furosemide (Furosemide) 20 Mg Tablet 1 TAB PO DAILY for 30 Days, #30 TAB 0 Refills Discharge Summary: Reason for admission: 59 years old female who was brought over from the admission and at the time of admission, she was unable to provide any information. At the [place], staff thought that she was not breathing and they started her on bag and mask ventilation. Please refer to admission H&P for further details Hospital course: Patient was admitted on the monitored floor under hospital course as follows. 1. Sepsis: At the time of admission, she was noted to be febrile at 103.1 with heart rate of 123. Treated with supportive care 2. Acute respiratory failure: Placed on 15 L of high-flow oxygen at the time of admission. After her thoracentesis, patient has significantly improved and is saturating at 93% on room air. 3. Pleural effusion: IR was consulted and patient underwent thoracentesis. Pleural fluid cultures has been negative. Pleural fluid studies reviewed. LDH was 67, WBCs 244, with 85% lymphocytes pleural fluid pH 7.65. Follow up chest x-ray showed no pneumothorax post thoracentesis. 4. Hypokalemia: Replace per protocol 5. AFib: Continued on amiodarone and Eliquis. 6. Hypertension: Continued on amlodipine and metoprolol. 7. C diff colitis: Treated with p.o. vancomycin. Patient required a placement of rectal tube and was having several loose stools every day. Patient reports her diarrhea has improved. 8. Acute exacerbation of COPD: Treated with inhaled bronchodilators. 9. IDDM: Placement carb controlled diet and hyper/hypoglycemia protocol 10. History of CAD: Patient is status post stenting. Continued on Plavix 11. History of TIA details unknown: Patient continued on Plavix as noted above 12. Azotemia: Due to volume depletion from her diarrhea. Patient presented with a BUN and creatinine of 12 and 0.89. BUN as continue to trend up likely due to dehydration. Encouraged p.o. intake. Patient was on Lasix which has been d iscontinued. 13. Hyponatremia: Monitored and remained stable 14. Hyperlipidemia: Continued on atorvastatin 15. Head lice: Treated with permethrin x2 during this admission 16. HFpEF without exacerbation : Patient has been on lasix which has been withheld due to worsening BUN . Discharge exam: I EXAMINED THE PATIENT ON THE DAY OF DISCHARGE HEENT: Normocephalic atraumatic extraocular movements are intact Neck supple, no JVD Chest: Decreased breath sounds in the left side Heart: Regular rate rhythm, no murmur or gallop rub Abdomen is soft nontender no organomegaly Extremities no cyanosis clubbing or edema Neuro exam nonfocal. Disposition: retirement facility *Problems/Diagnosis: (1) Sepsis Status: Resolved Total Time Spent on D/C: > 30 Minutes Date of Service: Sep 19, 2024 Billing Provider: EMMETT HERNANDEZ MD Common Visit Codes: 68296-ONI/OBS DISCH DAY >30min Problem Qualifiers (1) Sepsis: Qualified Codes: A41.9 - Sepsis, unspecified organism; R65.20 - Severe sepsis without septic shock; G93.41 - Metabolic encephalopathy EMMETT HERNANDEZ MD Sep 19, 2024 13:14
--- NOTE | 2024-09-19 14:25 | RADIOLOGY REPORT ---
CHEST RADIOGRAPH Indication: FOLLOW UP Technique: Single frontal view of the chest was obtained COMPARISON: DI CHEST,SINGLE VIEW on DOS: 09/15/24, DI CHEST,SINGLE VIEW on DOS: 09/10/24, DI CHEST,SINGL E VIEW on DOS: 09/07/24, DI CHEST,SINGLE VIEW on DOS: 09/05/24, DI CHEST,SINGLE VIEW on DOS: 07/21/24 FINDINGS: Lines and Tubes: None Lungs: Clear Pleura: Small right pleural effusion. No pneumothorax. Cardiomediastinal contours: Unremarkable Bones: Unremarkable IMPRESSION: Small right pleural effusion.
== END 2024-09-19 16:35 | DRG 720 ==
LOC: ER 08:35 → ED HOLD 10:21 → PCU 3S 11:52 → SUR 3N 09-15 20:16
PROVIDERS: ADMIT Internal Medicine; ATTEND Internal Medicine
PROC: BW241ZZ Computerized Tomography (CT Scan) of Chest and Abdomen using Low Osmolar Contrast (ICD-10-PCS; 2024-09-11)
PROC: 5A0935A Assistance with Respiratory Ventilation, Less than 24 Consecutive Hours, High Flow/Velocity Cannula (ICD-10-PCS; 2024-09-11)
PROC: 5A0935A Assistance with Respiratory Ventilation, Less than 24 Consecutive Hours, High Flow/Velocity Cannula (ICD-10-PCS; 2024-09-12)
PROC: 0W993ZZ Drainage of Right Pleural Cavity, Percutaneous Approach (ICD-10-PCS; principal; 2024-09-13)
PROC: 5A0935A Assistance with Respiratory Ventilation, Less than 24 Consecutive Hours, High Flow/Velocity Cannula (ICD-10-PCS; 2024-09-13)
DX: A41.9 Sepsis, unspecified organism (principal); J96.01 Acute respiratory failure with hypoxia; G93.41 Metabolic encephalopathy; I50.33 Acute on chronic diastolic (congestive) heart failure; A04.72 Enterocolitis due to Clostridium difficile, not specified as recurrent; E87.1 Hypo-osmolality and hyponatremia; B85.0 Pediculosis due to Pediculus humanus capitis; I48.21 Permanent atrial fibrillation; I11.0 Hypertensive heart disease with heart failure; M79.7 Fibromyalgia; E11.9 Type 2 diabetes mellitus without complications; J44.1 Chronic obstructive pulmonary disease with (acute) exacerbation; N17.9 Acute kidney failure, unspecified; R65.20 Severe sepsis without septic shock; I25.10 Atherosclerotic heart disease of native coronary artery without angina pectoris; E87.6 Hypokalemia; E78.5 Hyperlipidemia, unspecified; I16.1 Hypertensive emergency; G35 Multiple sclerosis; E86.0 Dehydration; J43.9 Emphysema, unspecified; Z59.00 Homelessness unspecified; Z86.73 Personal history of transient ischemic attack (TIA), and cerebral infarction without residual deficits; Z98.891 History of uterine scar from previous surgery; Z88.0 Allergy status to penicillin; Z79.4 Long term (current) use of insulin; Z79.899 Other long term (current) drug therapy
CPT/HCPCS: 32555; 36415; 36600; 71045; 71260; 73600; 73630; 80048; 80053; 80305; 80320; 81001; 81003; 82803; 82945; 82948; 83036; 83605; 83615; 83735; 83880; 83986; 84145; 84157; 85007; 85018; 85025; 87040; 87070; 87075; 87081; 87102; 87324; 87449; 89051; 92508; 92616; 93005; 93306; 94640; 94760; 96365; 96367; 96372; 96375; 97110; 97162; 97530; 99291; A4314; A4615; A4620; A6212; A6213; A6223; A6250; A6253; A6258; A6446; A6449; A7015; C1758; G0378; J0131; J0360; J0696; J1644; J1815; J1938; J2060; J2405; J3480; J3490; J7030; Q9967

== ENCOUNTER 2024-11-29 18:32 | Emergency (ER) | payer MEDICAID ==
[~2024-11-29] VITALS: Ht 157.5 cm; Wt 75.0 kg
[~2024-11-29 18:32] MED LIST changes: -FURO20TA4 PO; +UNABLE TO OBTAIN; +VANC25SO PO
[2024-11-29 19:11] VITALS: BP 126/76; PULSE 97; RESP 15; TEMP 98; O2SAT 95
--- NOTE | 2024-11-29 19:16 | Physician Documentation ---
History of Present Illness ~ Chief Complaint: Leg Pain Stated Complaint: RIGHT LEG PAIN Primary Medical Doctor: DAVID RUIZ Source: patient Mode of Arrival: POV, EMS Exam Limitations: no limitations HPI 59-year-old female with complaints of right calf pain x2 weeks with history of DVT in left lower extremity arrived via EMS Tetanus witin 5 years: No Medication Reconciliation Allergies: Coded Allergies: Penicillins (Verified Allergy, Unknown, HIVES, 11/29/24) TOLERATING CEFEPIME 01/2024 Scheduled Amiodarone Hcl (Cordarone), 200 MG PO DAILY Amlodipine Besylate (Amlodipine Besylate), 1 TAB PO DAILY Apixaban (Eliquis), 1 TAB PO BID Atorvastatin Calcium* (Lipitor*), 1 TAB PO DAILY Budesonide/Formoterol Fumarate (Symbicort 80-4.5 Mcg Inhaler), 2 PUFFS INH Q12H Clopidogrel Bisulfate (Clopidogrel), 75 MG PO DAILY Insulin Glargine,Hum.rec.anlog (Basaglar Kwikpen U-100), 25 UNITS SQ QPM Insulin Lispro (Insulin Lispro Tonny Kwikpen), 4 UNIT SQ ACHS Lisinopril (Lisinopril), 5 MG PO DAILY Metoprolol Succinate (Metoprolol Succinate), 1 TAB PO DAILY Scheduled PRN Ipratropium/Albuterol Sulfate (Combivent Respimat Inhal [place]), 2 PUFFS IH Q4H PRN for SOB or wheezing Miscellaneous Medications Unable to Obtain Medications (Unable to Obtain Medications), (Reported) Discontinued Medications Vancomycin HCl (Firvanq), 125 MG PO Q6H Discontinued Reason: Other Past Medical History Past Medical History: CVA/TIA/Stroke, Multiple Sclerosis, Congestive Heart Failure, Hypertension, Asthma, COPD, Emphysema, Constipation, Hepatitis C, Diabe deni, Fibromyalgia, Cellulitis Past Surgical History: , orthopedic surgeries, tonsillectomy Patient History: FH: skin cancer Maternal Grandmother Alcohol Use: Other Lives In: Homeless, Other Physical Exam Vital Signs: Temperature: 98.0, Source: Temporal, Heart Rate: 97, Respiratory Rate: 15, BP: 126/76, Pulse Oximetry: 95, Weight: 75.000 Physical Exam General: Alert, no apparent distress. HEENT: moist mucous membranes. Neck: Full range of motion. Respiratory: No respiratory distress speaking in full sentences Chest: No accessory muscle use. Cardiovascular: Appears well perfused Neurologic: Oriented x4. Progress Results/Orders Results/Orders Vital Signs 11/29/24 19:11 Temp 98.0 Pulse 97 Resp 15 B/P (MAP) 126/76 Pulse Ox 95 Medical Decision Making Additional information obtaine: N/A Findings Medical screening exam completed patient eloped prior to further evaluation and treatment General Diff Dx:Considerations: Include: Other Knee Diff Dx:Considerations: Include: Other Ankle Diff Dx:Considerations: Include: Other Foot Diff Dx:Considerations: Include: Other Toe Diff Dx:Considerations: Include: Other Departure Time of Disposition: 14:23 Disposition: 07 LEFT AWOL/ELOPED Impression: Primary Impression: Lower extremity sprain Referrals: NO PRIMARY CARE PROVIDER (PCP) Signature Scribe Signature: No scribe Attestation: The note accurately reflects work and decisions made by me.Da Wharton - JENA 12/01/24 14:24 DA WHARTON NP Nov 29, 2024 19:16
== END 2024-11-29 22:01 | disposition left against medical advice (07) ==
LOC: ER 18:33
DX: S86.912A Strain of unspecified muscle(s) and tendon(s) at lower leg level, left leg, initial encounter (principal); E11.9 Type 2 diabetes mellitus without complications; I11.0 Hypertensive heart disease with heart failure; I50.9 Heart failure, unspecified; J43.9 Emphysema, unspecified; M79.7 Fibromyalgia; Z86.73 Personal history of transient ischemic attack (TIA), and cerebral infarction without residual deficits; Z88.0 Allergy status to penicillin; Z88.1 Allergy status to other antibiotic agents; Z90.89 Acquired absence of other organs; X58.XXXA Exposure to other specified factors, initial encounter; Y93.89 Activity, other specified; Y92.89 Other specified places as the place of occurrence of the external cause; Y99.8 Other external cause status
CPT/HCPCS: 99283

== ENCOUNTER 2024-11-30 07:25 | Inpatient (IN) | payer MEDICAID ==
[~2024-11-30] VITALS: Ht 157.5 cm; Wt 69.8 kg
[2024-11-30] VITALS (12 sets, daily range): BP systolic 130–152; BP diastolic 61–81; PULSE 85–92; RESP 12–20; TEMP 97.4; O2SAT 92–99
--- NOTE | 2024-11-30 07:37 | ELECTROCARDIOGRAPH REPORT ---
[facility] Test Date: 2024-11-30 Test Time: 07:29:39 Pat Name: RHIANNON BATES Department: EMERGENCY ROOM Room: [place] [address] Gender: F Automatic Seamer: DENAE : 1965 Requested By: NUNU CLARKE Order Number: [id number] Reading MD: Dr. Agustin Chung Measurements Intervals [place] Rate: 101 P: 85 OK: 162 QRS: -89 QRSD: 175 T: 95 QT: 423 QTc: 549 Interpretive Statements Sinus tachycardia RBBB and LAFB LVH by voltage Abnormal T, consider ischemia, lateral leads Electronically Signed On 12-07-2024 8:17:[address] Agustin Chung Please click the below link to view image of tracing.
--- NOTE | 2024-11-30 08:10 | Physician Documentation ---
History of Present Illness ~ Chief Complaint: Shortness of Breath Stated Complaint: SOB Time Seen by MD: 08:02 Primary Medical Doctor: DAVID LONGORIA 59-year-old female history of AFib not on anticoagulation, C difficile colitis, COPD, CAD status post PCI, IDDM, TIA, HFpEF presenting for 2 weeks of right leg pain and swelling sounds increasing shortness of breath. She reports that she has not picked up any of her medications in his not take any prescriptions for several months. EMS was called today due to her respiratory distress she was found to be 91% on room air she was given Duo nebs with improvement in her oxygenation. She does endorse chest discomfort which is associated with her breathing. She denies productive cough Reviewed discharge summary September 2024 hypokalemia acute on chronic diastolic CHF sepsis right pleural effusion head lice homelessness At that time underwent right-sided thoracentesis pleural fluid negative Echocardiogram 09/07/2024 EF 60% elevated right heart pressures Medication Reconciliation Allergies: Coded Allergies: Penicillins (Verified Allergy, Unknown, HIVES, 11/29/24) TOLERATING CEFEPIME 01/2024 Scheduled Amiodarone Hcl (Cordarone), 200 MG PO DAILY Amlodipine Besylate (Amlodipine Besylate), 1 TAB PO DAILY Apixaban (Eliquis), 1 TAB PO BID Atorvastatin Calcium* (Lipitor*), 1 TAB PO DAILY Budesonide/Formoterol Fumarate (Symbicort 80-4.5 Mcg Inhaler), 2 PUFFS INH Q12H Clopidogrel Bisulfate (Clopidogrel), 75 MG PO DAILY Insulin Glargine,Hum.rec.anlog (Basaglar Kwikpen U-100), 25 UNITS SQ QPM Insulin Lispro (Insulin Lispro Tonny Kwikpen), 4 UNIT SQ ACHS Lisinopril (Lisinopril), 5 MG PO DAILY Metoprolol Succinate (Metoprolol Succinate), 1 TAB PO DAILY Vancomycin HCl (Firvanq), 125 MG PO Q6H Scheduled PRN Ipratropium/Albuterol Sulfate (Combivent Respimat Inhal [place]), 2 PUFFS IH Q4H PRN for SOB or wheezing Miscellaneous Medications Unable to Obtain Medications (Unable to Obtain Medications), (Reported) Past Medical History Past Medical History: CVA/TIA/Stroke, Multiple Sclerosis, Congestive Heart Failure, Hypertension, Asthma, COPD, Emphysema, Constipation, Hepatitis C, Diabetes, Fibromyalgia, Cellulitis Past Surgical History: , orthopedic surgeries, tonsillectomy Patient History: FH: skin cancer Maternal Grandmother Alcohol Use: Other Lives In: Homeless, Other Review of Systems All Other Systems at this time: Reviewed and Negative Physical Exam Vital Signs: Temperature: 98.0, Source: Oral, Heart Rate: 103, Respiratory Rate: 19, BP: 193/97, Pulse Oximetry: 94, Weight: 74.000 Oxygen Flow Rate: 0 Physical Exam Chronically ill-appearing No JVD moist mucous membranes Lungs diminished lung sounds right middle and lower lobes no wheezing rhonchi rales Cardiac no murmur Abdomen is soft nontender Awake alert oriented normal speech Right lower extremity 2+ pitting edema PT DP pulses intact warm, intact sensation Left lower extremity trace pitting edema intact pulses and sensation Progress Results/Orders Results/Orders Orders - NUNU CLARKE MD Chest,Single View (11/30/24 07:35) Monitor (11/30/24 07:35) Saline Lock (11/30/24 07:35) Oxygen (11/30/24 07:35) Hs Troponin I W Calculations (11/30/24 09:35) Hs Troponin I W Calculations (11/30/24 10:35) Vl Venous (11/30/24 08:08) Cta Chest Pe (11/30/24 09:09) Completed Orders - NUNU CLARKE MD Chest,Single View (11/30/24 07:35) Cbc/Diff (11/30/24 07:35) BMP (11/30/24 07:35) PBNP (11/30/24 07:35) Electrocardiogram (11/30/24 07:35) Hs Troponin I W Calculations (11/30/24 07:35) Vl Venous (11/30/24 08:08) Cta Chest Pe (11/30/24 09:09) Iohexol 350mg/Ml 100ml (Omnipaque 350mg/ (11/30/24 08:29) Vital Signs 11/30/24 11/30/24 11/30/24 11/30/24 07:29 07:42 07:49 09:16 Temp 98.0 Pulse 101 103 98 Resp 24 26 19 23 B/P (MAP) 201/102 193/97 (129) 183/94 (123) Pulse Ox 98 94 97 O2 Flow Rate 0 0 2.0 Laboratory Tests Test 11/30/24 08:02 White Blood Count 6.0 Red Blood Count 4.56 Hemoglobin 12.7 Hematocrit 37.9 Mean Corpuscular Volume 83.1 Mean Corpuscular Hemoglobin 27.9 Mean Corpuscular Hemoglobin Concent 33.5 Red Cell Distribution Width 14.6 H Platelet Count 110 L Mean Platelet Volume 8.6 Neutrophils (%) (Auto) 62.0 Lymphocytes (%) (Auto) 24.8 Monocytes (%) (Auto) 8.4 Eosinophils (%) (Auto) 3.9 Basophils (%) (Auto) 0.9 Neutrophils # (Auto) 3.7 Lymphocytes # (Auto) 1.5 Monocytes # (Auto) 0.5 Eosinophils # (Auto) 0.2 Basophils # (Auto) 0.1 CBC Comment Sodium Level 137 Potassium Level 3.4 L Chloride Level 104 Carbon Dioxide Level 26.0 Anion Gap 7 L Blood Urea Nitrogen 17 Creatinine 0.74 Estimated GFR/1.73 m2 80 BUN/Creatinine Ratio 23.0 H Glucose Level 227 H Calcium Level 7.6 L Troponin I High Sensitivity 49 Pro-B-Type Natriuretic Peptide 2547 H Albumin 1.9 L Chemistry Comments EKG/XRAY/CT/US/VASC/MRI EKG : Additional Comment EKG compared to 09/05/2024 no acute changes EKG independently interpreted by myself time 12:27 a.m. 29 indication dyspnea sinus tachycardia rate 101 right axis deviation right bundle branch block no ST- elevation CT : Impression CT independently interpreted by myself shows no pulmonary embolism moderate sized right pleural effusion Medical Decision Making Additional information obtaine: old records (Discharge summary) Findings 59-year-old female history of CHF, COPD, AFib not on anticoagulation, recurrent transudative right pleural effusion presenting for several weeks of increasing shortness of breath and leg pain. She reports not taking any of her prescribed medications. She has found today borderline hypoxic tachypneic afebrile exam with diminished lung sounds in the right. Labs chronic with heart failure. CTa of her chest showed moderate pleural effusion. Symptoms consistent with untreated anasarca from her CHF. She has not needing emergent thoracentesis. Plan to admit for diuresis Departure Disposition: ADMITTED INPATIENT Admitted to Inpatient Unit: to hospitalist Impression: Primary Impression: Acute exacerbation of congestive heart failure Qualified Codes: I50.33 - Acute on chronic diastolic (congestive) heart failure Additional Impression: Recurrent right pleural effusion Referrals: NO PRIMARY CARE PROVIDER (PCP) Signature Scribe Signature: na Attestation: NUNU Otero MD Nov 30, 2024 08:10
[2024-11-30 08:22] LABS: MEAN PLATELET VOLUME 8.6 FL (7.4-10.4); RED CELL DISTRIBUTION WIDTH 14.6 % (11.5-14.5)
--- NOTE | 2024-11-30 08:32 | RADIOLOGY REPORT ---
CHEST RADIOGRAPH Indication: CP Technique: Single frontal view of the chest was obtained Comparison: DI CHEST,SINGLE VIEW on DOS: 09/19/24 FINDINGS: Lines and Tubes: None Lungs: Pulmonary interstitial prominence noted. Right basilar airspace disease. Pleura: There is a right pleural effusion. No pneumothorax. Cardiomediastinal contours: Cardiomegaly. Bones: No acute osseous abnormality. IMPRESSION: 1. Cardiomegaly with pulmonary vascular congestion and right pleural effusion.
[2024-11-30 08:47] LABS: CREATININE 0.74 MG/DL (0.40-0.90); PRO BRAIN NATRIURETIC PEPTIDE 2547 PG/ML (0-125); TOTAL CARBON DIOXIDE 26.0 MMOL/L (24-32); eCRCL 65 ML/MIN; eGFR 80 ML/MIN
--- NOTE | 2024-11-30 09:05 | VASCULAR REPORT ---
CLINICAL HISTORY: Pain and swelling in the right leg. Shortness of breath. COMPARISON: VASC VL VENOUS on DOS: 07/06/23, CT CT LOWER EXTREMITY on DOS: 05/03/23, VASC VL MODE on DOS: 04/12/23 TECHNIQUE: Compression evaluation and color doppler evaluation of the deep veins of the right lower extremity was performed. Evaluation for augmentation and flow characteristics with doppler pulse wave imaging was performed. Realtime grayscale and Doppler ultrasound images of the deep venous structures with spectral waveform analysis were obtained. FINDINGS: This examination demonstrates normal compression, augmentation, and phasic flow of the right lower extremity. No evidence for echogenic thrombus within the right common femoral, femoral, and popliteal veins. The posterior tibial veins demonstrated normal compression and color flow at the level of the calf. Contralateral left common femoral vein is patent with normal spontaneous phasic flow and augmentation demonstrated. IMPRESSION: There is no evidence for DVT in the right lower extremity.
--- NOTE | 2024-11-30 09:32 | RADIOLOGY REPORT ---
EXAM: CT CTA CHEST PE W/ IV CONTRAST HISTORY: chest pain sob COMPARISON: CT CTA CHEST PE on DOS: 01/11/24, CT CTA CHEST PE on DOS: 01/01/24, CT CTA CHEST PE on DOS: 07/06/23 TECHNIQUE: Helical CT images of the chest were performed with 100 mL omnipaque 350 IV contrast using pulmonary CTA protocol. Sagittal and coronal reformatted images and 3D MIP images were obtained. This CT exam was performed using 1 or more of the following dose reduction techniques: Automated exposure control, adjustment of the mA and/or kv according to patient size, or the use of iterative reconstruction techniques. Radiation Dose: Chest: CTDI volume is 15.19 mGy. Dose-length product is 534.74 mGy*cm. FINDINGS: No pulmonary arterial filling defects are identified. There is a large right pleural effusion with associated atelectasis of the right upper, lower, and middle lobes. There is a small left pleural effusion. No pneumothorax. No suspicious mediastinal or axillary adenopathy. The heart is enlarged. There are coronary artery calcifications. The central pulmonary arteries are ectatic No thoracic aortic aneurysm or dissection. There are linear and nodular hyperattenuation foci in the liver. There may be free fluid in the upper abdomen, not fully imaged here. There is subcutaneous edema. There is moderate thoracic degenerative disc disease. IMPRESSION: 1. No evidence of pulmonary embolism. 2. Large right and small left pleural effusions, with associated partial right lung atelectasis. Consider therapeutic thoracentesis. 3. Possible upper abdominal ascites, not fully imaged here. Additionally as there is subcutaneous edema diffusely, this is suggestive of anasarca.
[2024-11-30] MEDS ORDERED: magnesium hydroxide 30ml (MOM) UD suspension PO PRN (10:20)
[2024-11-30] MEDS ORDERED: magnesium sulf-water 2g/50mL 50 ML IV PRN (10:20)
[2024-11-30] MEDS ORDERED: potassium Cl 20 mEq SR tablet PO PRN (10:20)
[2024-11-30] MEDS ORDERED: potassium Cl 40MEQ/1/2NS 520ml 520 ML IV PRN (10:20)
[2024-11-30] MEDS ORDERED: mag hydrox/Alum hydrox/simeth 30ml oral suspension PO PRN (10:20)
[2024-11-30] MEDS ORDERED: ondansetron/PF 4mg/2ml inj IV PRN (10:20)
[2024-11-30] MEDS ORDERED: magnesium Cl slow-release 64mg tablet PO PRN (10:20)
[2024-11-30] MEDS ORDERED: magnesium sulf-water 4G/100mL 100 ML IV PRN (10:20)
[2024-11-30] MEDS: HYDROcodone/acetaminophen 5mg/325mg tablet PO PRN (10:34)
[2024-11-30] MEDS: hydrALAZINE 20mg/ml inj. IV ONE ×2 (10:36→12:10)
[2024-11-30] MEDS: PERFLUTREN PROTEIN-A MICROSPHR (Optison) 0.22 MG/ML 3ML VIAL IV ONE (10:37)
[2024-11-30] MEDS: metoprolol succinate 25mg (24-HOUR) SR. Tablet PO SCH (10:46)
[2024-11-30 10:54] LABS: CHOL/HDL RATIO 3.7 (0.00-4.99); LDL CHOLESTEROL 157 MG/DL (50-100)
[2024-11-30 11:19] LABS: ABG BASE EXCESS 0.0 mmol/L (-2.0-3.0); ABG HCO3 22.5 mmol/L (21.0-28.0); ABG OXYGEN SATURATION 95.3 % (94.0-98.0); ABG PCO2 (T) 29.4 mmHg (32.0-45.0); ABG PH (T) 7.500 (7.350-7.450); ABG PO2 (T) 73.5 mmHg (83.0-108.0); ALLEN'S TEST POSITIVE; FCOHb 1.0 % (0.5-1.5); FHHb 4.6 % (0.0-5.0); FIO2 28.0 mmHg/%; FMetHb 0.3 % (0.0-1.5); FO2Hb 94.1 % (94.0-98.0); MODE NASAL CANNULA; PATIENT TEMPERATURE 36.5; TOTAL HEMOGLOBIN 12.8 G/dl (12.0-16.0)
[2024-11-30] MEDS: ipratropium/albuterol 3ml nebule NEB SCH (11:22)
[2024-11-30 11:26] LABS: PHOSPHORUS 3.2 MG/DL (2.3-4.5)
[2024-11-30] MEDS: HYDROmorphone/PF 0.2 MG/ML SYRINGE IV PRN (11:34)
--- NOTE | 2024-11-30 11:47 | VASCULAR REPORT ---
[facility] Vascular Department [facility] [address] [place] [address] [email or web address] LAC SUDHIR REYNA Name : RHIANNON BATES Date : 11/30/2024 [facility] Birthdate : 1965 Sex :F Public Affairs Director : Peg Leblanc RDMS/RVT Age : [address] : HELGA SALGUERO, Preliminary Report The above named patient was referred for a NON-INVASIVE LOWER EXTREMITY ARTERIAL EVALUATION. The evaluation includes grayscale imaging, color flow Doppler and spectral analysis of the lower extermity arteries. Patient IN-PATIENT InaRSations Right leg pain VELOCITY AND DOPPLER WAVEFORM ANALYSIS RIGHT cm/se Waveform Severity LEFT cm/se Waveform Severity c c dCFA 152.0 Multiphasic dCFA 121.3 Multiphasic Prof Fem 112.4 Multiphasic Prof Fem 141.0 Multiphasic Art. Art Fem Art 317.6 Monophasic Moderate 50-79% Fem Art Prox. Prox. Fem Art 145.7 Monophasic Fem Art Mid Mid. Fem Art 115.2 Fem Art Dist. Dist. Pop Art(AK) 62.9 Monophasic Pop Art(AK) Pop Art(BK) 107.1 Monophasic Pop Art(BK) WRAPPING CLERK Dist. 37.9 Monophasic WRAPPING CLERK Dist. Per Art Dist. 29.3 Monophasic Per Art Dist. JSAMYN Dist. 114.9 Monophasic JASMYN Dist. 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 50-79% stensosi demonstrated in Right SFA Proximally. No MODE due to pain-unable to tolerate
[2024-11-30 12:37] LABS: LACTATE DEHYDROGENASE 388.0 U/L (81-234)
[2024-11-30] MEDS ORDERED: DEXTROSE 15 GM of carb/4 tabs (each vial/BOTTLE has 4 tablets) PO PRN ×2 (12:40)
[2024-11-30] MEDS ORDERED: glucagon, human recombinant 1mg kit SUBCUT PRN (12:40)
[2024-11-30] MEDS ORDERED: dextrose 50%-water 50ml dispensing syringe IV PRN ×2 (12:40)
[2024-11-30] MEDS ORDERED: morphine 4 MG/ML inj SYRINge IV PRN (12:56)
[2024-11-30] MEDS ORDERED: iohexol 350 MG/ML 50ML vial IV ONE (14:19)
--- NOTE | 2024-11-30 14:20 | HISTORY AND PHYSICAL-Residence ---
History & Physical Providers to CC Resident Creating Document: YEE CISNEROS, RES CC: LIDIA GILLETTE MD ~ History of Present Illness Primary Medical Doctor: DAVID RUIZ Reason for Admit\Complaint: Acute exacerbation of congestion heart failure History of Present Illness 59-year-old female history of methamphetamine use, atrial fibrillation not on anticoagulation, COPD coronary artery disease status post two PCIs, C difficile colitis, type 2 diabetes mellitus, HFpEF presented with a chief complaints of fatigue for the last one month, shortness of breath for the last two weeks associated with chest pain rated the pain eight on 10 radiating to the left shoulder described the pain as pressure-like pain, in addition patient also complained of diffuse abdominal pain, with no radiation associated with 4-5 loose stools for the last one month. Patient also complains of excruciating right lower extremity for the last two weeks associated with mild swelling. She denied any history of fever or chills. Patient was brought to the ED by EMS after extreme shortness of breath and was saturating at 91% Patient is extremely noncompliant with the medication, has not picked up any recent medications for her underlying significant comorbidities Patient was recently admitted in September 2024 for hypokalemia, acute on chronic diastolic congestive heart failure and sepsis secondary to right pleural effusion, underwent right-sided thoracentesis at that time Patient stated that she lives in her home with her fiance Patient goes to [facility] Patient uses a walker and wheelchair ED course: On admission patient's her blood pressure was 201/102 mmHg, required oxygen of 1-2 L saturating at 91%, chest x-ray 1. Cardiomegaly with pulmonary vascular congestion and right pleural effusion. Patient was given a dose of Lasix, vascular ultrasound was done and DVT was ruled out. CTA chest was done rule out pulmonary embolus Allergies: Coded Allergies: Penicillins (Verified Allergy, Unknown, HIVES, 11/29/24) TOLERATING CEFEPIME 01/2024 Home Medications Home Medications Active Combivent Respimat Inhal Chitina (Albuterol/Ipratropium) 20 Mcg-100 Mcg/Actuation Aer.w.adap 2 Puffs IH Q4H PRN Insulin Lispro Tonny Kwikpen (Insulin Lispro) 100 Unit/Ml Ins.pen.hf 4 Unit SQ ACHS Basaglar Kwikpen U-100 (Insulin Glargine,Hum.rec.anlog) 100 Unit/Ml (3 Ml) Insuln.pen 25 Units SQ QPM Metoprolol Succinate 25 Mg Tab.sr.24h 1 Tab PO DAILY 30 Days Lisinopril 5 Mg Tablet 5 Mg PO DAILY Clopidogrel (Clopidogrel Bisulfate) 75 Mg Tablet 75 Mg PO DAILY Do not stop medication unless instructed by prescriber. Symbicort 80-4.5 Mcg Inhaler (Budesonide/Formoterol Fumarate) 80 Mcg-4.5 Mcg/Actuation Hfa.aer.ad 2 Puffs INH Q12H 30 Days Amlodipine Besylate 10 Mg Tablet 1 Tab PO DAILY 30 Days Lipitor* (Atorvastatin Calcium) 40 Mg Tablet 1 Tab PO DAILY 30 Days Cordarone (Amiodarone HCl) 200 Mg Tablet 200 Mg PO DAILY 30 Days Eliquis (Apixaban) 5 Mg Tablet 1 Tab PO BID 30 Days Reported Unable to Obtain Medications (Non-Formulary Medication) Each pt is altered, no family available, unable to confirm what pharmacy or meds pt takes Past Medical History Past Medical History Atrial fibrillation not on anticoagulation C diff colitis COPD Coronary artery disease status post to PCI TIA Heart failure with preserved ejection fraction Type 2 diabetes mellitus Cellulitis Past Surgical History Surgical History Comment Metallic plates in the left and right leg post accident Coronary artery disease status post two PCI Family History Family History: FH: skin cancer Maternal Grandmother Past Social History Social History Comment Patient is an active methamphetamine user Patient is also chronic smoker has smoked six cigarettes for the last 35 years Patient stated that she quit drinking when she was 30 years old, but she used to drink for about 10 years Alcohol Use: Other Lives In: Homeless, Other ROS All Other Systems: Reviewed and Negative Exam Vitals: Vital Signs Date Time Temp Pulse Resp B/P (MAP) Pulse Ox O2 Delivery O2 Flow Rate FiO2 11/30/24 12:30 15 11/30/24 12:10 91 11/30/24 11:34 126/71 (89) 97 2.0 11/30/24 11:30 Nasal Cannula 11/30/24 11:24 28 11/30/24 07:29 98.0 General: General: Awake, oriented to person, place and time; in acute distress HEENT: Conjunctive are pink, sclerae clear, no icterus, pupil is equal in both sides, reactive to light, no ear discharge, no pharyngeal erythema or an edema. Neck: Supple, no JVD, no lymphadenopathy and thyromegaly. Chest: Decreased breath sounds noted especially in the right basilar region, vesicular breath sounds, no wheezing heard, bibasilar crackles heard Cardiovascular: S1-S2 regular sinus rhythm and, regular rate, no gallops, no rubs, no murmurs Abdomen: No visible peristalsis, Bowel sounds present on auscultation, soft, diffuse tenderness, no guarding, no rigidity, ascitic abdomen noted Extremities: Right toes deformed post an accident, 2+ bilateral pitting edema bilaterally, capillary refill intact, feeble peripheral pulse noted on the right lower extremity Neurologic: Mental status: alert and conscious, oriented to place, person and time, preserved memory, normal speech. Could not complete the full neurological examination as patient was extremely short of breath and was comfortable only lying in one particular position Musculoskeletal: No joint swelling, right leg deformity noted, inflammations, and no scoliosis and back tenderness Skin: Warm and dry. Dry oral mucosa. Internal inguinal rash noted Diagnostic Data Last Recorded Lab Results: 11/30/2480111/30/24801 Counseling Services Smoking & Tobacco Cessation: 3-10 Minutes (Discussing smoking cessation with the patient including the risk continued smoking with the patient including: lung cancer, stroke, heart attack, poor wound healing, increase in facial drinking, risk of MRSA skin infections.) Advance Care Planning Advanced Care plannin - 30 Minutes (Discussed with the patient detail about her advanced care planning, patient decided she wanted to be a full code) Additional Plan Acute on chronic congestive heart failure with preserved ejection fraction 55% NYHA IV(symptoms present even at rest), AHA classification stage C ProBNP 2547, troponins negative, 5% decrease in EF compared to previous echocardiogram Chest x-ray: Cardiomegaly with pulmonary vascular congestion and right pleural effusion. Plan Initiated the patient on Jardiance 10 mg, metoprolol 25 mg, lisinopril 20 mg Continue furosemide 40 mg b.i.d. Pharmacotherapy we will be titrated in accordance with patient's clinical response Acute limb ischemia on chronic limb ischemia Patient complained of severe right lower extremity and left lower extremity pain, Arterial ultrasound : 50-79% stenosis demonstrated in Right SFA Proximally,examination could not be done as patient was not pain Consulted Dr. Bliss recommended lower extremity CTA Lower extremity CTA showed: 1.Long segment right SFA stenosis in the mid thigh up to 90%. Approximately 50% adductor canal in stent restenosis. Approximately 80-90% stenosis of the tibioperoneal trunk. There appears to be 3-vessel runoff to the right foot. 2.Numerous stenoses in the left SFA, the greatest measuring approximately 80% in the adductor canal. The left TP trunk is too calcified to evaluate. 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 There appears to be 2-vessel runoff to the left foot by the anterior tibial and peroneal arteries. Dr. Banda recommended consultation with Dr. Lal. Dr. Lal said he would look into the patient and we will physically come and examine the patient tomorrow and give his recommendations accordingly Continue heparin drip (PE dosing) Hypertensive emergency On arrival patient's blood pressure was 201/102mmhg;Patient received one dose of hydralazine 5 mg IV Patient's blood pressure is slowly stabilizing Initiated patient's home medication metoprolol 25 mg p.o., amlodipine 10 mg lisinopril 20 mg Acute hypoxemic respiratory failure Secondary to congestive heart failure/COPD On arrival patient's saturation was 91%, patient is currently requiring 1 L of oxygen saturating at 95% Maintain saturation >95%, titrate oxygen if needed Initiated the patient on DuoNebs q.4h scheduled, albuterol q.2h p.r.n. Patient received one dose of Solu-Medrol 125 mg Continue Solu-Medrol 40 mg q.6h IV Right Pleural effusion History of recurrent pleural effusion Light's criteria not met-transudative effusion most likely secondary to heart failure Patient's chest x-ray showed massive pleural effusion in the right side Nurse Sitter team was consulted, thoracentesis was done-1900 cc of fluid was removed Pathology specimen sent Chronic Atrial fibrillation Held patient's apixaban, she is currently receiving heparin drip Continue amiodarone 100 mg p.o. Diabetes mellitus type 2 Patient's HbA1c is elevated 9.2, Initiated the patient on Lantus 20 units and severe hyperglycemia hypoglycemic protocol Coronary artery disease status post PCI Hyperlipidemia-deranged lipid panel Total cholesterol 243, LDL 157 and HDL 65 Held patient's Plavix for the time being as patient is on heparin drip Increased patient's atorvastatin to 80 mg Active methamphetamine and tobacco use Utox pending Initiated the patient 21 mg nicotine patch Substance use navigator and social media content specialist consult in place Discussing smoking cessation with the patient including the risk continued smoking with the patient including: lung cancer, stroke, heart attack, poor wound healing, increase in facial drinking, risk of MRSA skin infections. Code Status: Full code DVT Prophylaxis: Heparin Lines/Tubes: None Nutrition: 2 g sodium restricted diet/diabetic diet PT:yes Prognosis: Guarded Disposition: Patient has severe acute limb ischemia and chronic limb ischemia and acute exacerbation of congestive heart failure, we will give sign-out to the night team. Dr. Lal is aware of the patient, will give his recommendations tomorrow. Yee Cisneros MD Internal medicine resident,PGY-1 Date of Service: Nov 30, 2024 Billing Provider: LIDIA GILLETTE MD, JAHNAVI, RES Nov 30, 2024 14:20
[2024-11-30] MEDS: methylPREDNISolone sod succ/PF 40mg inj. IV SCH (14:30)
[2024-11-30 16:20] LABS: BFSOURCE RIGHT PLEURAL FLD; PLEURAL FLUID PH 7.612 (7.63-7.65)
--- NOTE | 2024-11-30 16:37 | CONSULTATION REPORT - RESIDENT ---
Consult Providers to CC Resident Creating Document: PRESLEY ZUNIGA ALAYNA RAY History of Present Illness Reason for Admit\Complaint: Shortness of breaths History of Present Illness The purchasing administrator team was consulted for thoracentesis. This is a 59 years old female with past medical history of atrial fibrillation, COPD, coronary artery disease, CHF with preserved ejection fraction, diabetes mellitus, meth amphetamine use presented to the ED with chief complaint of worsening shortness of breaths with the last 1-2 weeks. The patient also complains of bilateral lower extremity swelling with the pain in her right lower extremity. The patient also complains of chest pain that has been going on since the past few days and rates it eight on a scale of 10. Reported that the chest pain is mostly in the left side radiating her left shoulder. She denied any other concerns or complaints at the moment. Allergies: Coded Allergies: Penicillins (Verified Allergy, Unknown, HIVES, 11/29/24) TOLERATING CEFEPIME 01/2024 Home Medications Home Medications Active Combivent Respimat Inhal [place] (Albuterol/Ipratropium) 20 Mcg-100 Mcg/Actuation Aer.w.adap 2 Puffs IH Q4H PRN Insulin Lispro Tonny Kwikpen (Insulin Lispro) 100 Unit/Ml Ins.pen.hf 4 Unit SQ ACHS Basaglar Kwikpen U-100 (Insulin Glargine,Hum.rec.anlog) 100 Unit/Ml (3 Ml) Insuln.pen 25 Units SQ QPM Metoprolol Succinate 25 Mg Tab.sr.24h 1 Tab PO DAILY 30 Days Lisinopril 5 Mg Tablet 5 Mg PO DAILY Clopidogrel (Clopidogrel Bisulfate) 75 Mg Tablet 75 Mg PO DAILY Do not stop medication unless instructed by prescriber. Symbicort 80-4.5 Mcg Inhaler (Budesonide/Formoterol Fumarate) 80 Mcg-4.5 Mcg/Actuation Hfa.aer.ad 2 Puffs INH Q12H 30 Days Amlodipine Besylate 10 Mg Tablet 1 Tab PO DAILY 30 Days Lipitor* (Atorvastatin Calcium) 40 Mg Tablet 1 Tab PO DAILY 30 Days Cordarone (Amiodarone HCl) 200 Mg Tablet 200 Mg PO DAILY 30 Days Eliquis (Apixaban) 5 Mg Tablet 1 Tab PO BID 30 Days Reported Unable to Obtain Medications (Non-Formulary Medication) Each pt is altered, no family available, unable to confirm what pharmacy or meds pt takes Past Medical History Past Medical History COPD CHF with preserved ejection fraction Atrial fibrillation Methamphetamine use Type 2 diabetes mellitus Coronary artery disease Past Surgical History Surgical History Comment Orthopedic surgeries Tonsillectomy Family History Family History: FH: skin cancer Maternal Grandmother Past Social History Social History Comment Methamphetamine use. Ambulates with a walker. ROS ROS As stated above in the HPI, otherwise all systems are reviewed and negative. Exam Vitals: Vital Signs Date Time Temp Pulse Resp B/P (MAP) Pulse Ox O2 Delivery O2 Flow Rate FiO2 11/30/24 16:13 89 12 130/61 (84) 99 11/30/24 15:24 Nasal Cannula 1.0 11/30/24 15:13 24 11/30/24 07:29 98.0 General: General: Awake and Alert, in moderate distress. HEENT: Conjunctiva pink, Sclera clear, Mucus Membranes moist. Neck: Supple without masses and tenderness. Resp: Diminished breath sounds in the right lower lobe. Left basilar crackles present. Heart: Regular Rate and rhythm, normal S1 and S2 without murmur, rub or gallop. Abdomen: Soft and non tender no organomegaly Extremities : right lower extremity has 2+ edema. Skin: Warm and Dry. Neurology: No focal motor or sensory deficits. Diagnostic Data Last Recorded Lab Results: 11/30/2480111/30/24801 Additional Plan Right-sided pulmonary effusion Congestive heart failure with preserved ejection fraction Acute hypoxemic respiratory failure The patient's pleural effusion most likely secondary to underlying congestive heart failure. A right thoracentesis was done. We drained approximately 1900 cc of fluid. Refer to procedure note for further details. The patient tolerated the procedure well. No immediate postprocedure complications were noted. Continue management per the primary team. Thank you for allowing us to participate in the patient's care. CODE STATUS: Full code Critical care time 35 minutes. Presley Zuniga MD Internal Medicine Resident, PGY-3 Date of Service: Nov 30, 2024 Billing Provider: ARUNA GARCIA MD, SURYA PRATIK, RES Nov 30, 2024 16:37
--- NOTE | 2024-11-30 16:40 | PROCEDURE NOTE- Residance ---
Procedure Note Providers to CC CC: RACHEL ZUNIGA RES ~ Planned Procedure Thoracentesis Indications Right-sided large pleural effusion. 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 Jaleesa Zuniga Type of Anesthesia Local Informed Consent Taken Description A time-out was completed verifying correct patient, procedure, site, positioning. The patients right side was prepped and draped in a sterile manner after the appropriate infiltration level was confirmed by ultrasound. 1% lidocaine was used anesthetize the surrounding skin. A 10-blade scalpel used to make the incision. The [place] catheter was then introduced into the pleural cavity. The patient had 1900 cc of fluid removed. Estimated Blood Loss None Complication None Date of Service: Nov 30, 2024 Billing Provider: ARUNA GARCIA MD, SURYA PRATIK, ALAYNA Nov 30, 2024 16:40
[2024-11-30 16:45] LABS: GLUCOSE,BODY FLUID 263 MG/DL; LDH,BODY FLUID 84 U/L
[2024-11-30] MEDS ORDERED: ipratropium 0.5 MG/2.5ML nebule NEB PRN (16:45)
[2024-11-30 16:57] LABS: TOTAL PROTEIN,BODY FLUID < 2.0 G/DL
[2024-11-30 17:42] LABS: BFSOURCE RIGHT PLEURAL FLD
[2024-11-30 17:43] LABS: BF RBC COUNT 705 /CU MM; BF WBC COUNT 775 /CU MM (0-1000); BFAPPEAR HAZY; BFCOLOR YELLOW; BFVOLUME 50 ML; EOSINOPHILS,BODY FLUID 1 %; LYMPHOCYTES,BODY FLUID 93 %; MONOCYTES,BODY FLUID 1 %; NEUTROPHILS,BODY FLUID 5 %
--- NOTE | 2024-11-30 18:03 | RADIOLOGY REPORT ---
PROCEDURE: ULTRASOUND GUIDED THORACENTESIS USING TEMPORARY CATHETER HISTORY: 59 Female with requiring thoracentesis. DOCUMENTATION: Informed consent was obtained and a procedural time out was performed. TECHNIQUE: Ultrasound was used to locate the right pleural fluid collection with an image archived in the PACS. The skin over the right posterior hemithorax was sterilely prepped, draped, and infiltrated with 1% lidocaine. Under real time ultrasound guidance, the right pleural space was accessed with a 19-gauge Yueh needle and connected to Vacutainers. The Yueh catheter was advanced, the needle was removed and the temporary catheter was advanced and connected to the Vacutainer. Approximately 1.9 liters of serous fluid was removed. The temporary catheter was removed and sterile dressings were applied. FINDINGS: Ultrasound demonstrates a right pleural effusion. Imaging confirms the needle tip within the fluid. IMPRESSION: SUCCESSFUL ULTRASOUND GUIDED THORACENTESIS. Performed by Dr. Zuniga.
--- NOTE | 2024-11-30 18:19 | RADIOLOGY REPORT ---
CTA PELVIS WITH BILATERAL LOWER EXTREMITY RUNOFF WITH CONTRAST INDICATION: Acute right lower extremity ischemia COMPARISON: CT CTA LOWER EXTREMITY LFT on DOS: 11/30/24, DI FOOT, COMPLETE (3VW MIN) on DOS: 09/05/24, DI ANKLE,LIMITED (AP/LAT) on DOS: 09/05/24, DI ANKLE,LIMITED (AP/LAT) on DOS: 06/08/23, DI TIB/FIB 2 VWS on DOS: 06/08/23 TECHNIQUE: Axial CT images of the pelvis and bilateral lower extremities are obtained at 1 mm collimation in the early arterial phase after intravenous contrast administration. Coronal maximum intensity projection (MIP) images are provided. 3-D images of the abdominal aorta and bilateral lower extremity arteries were constructed on an independent workstation. Radiation optimization: All CT scans at this facility use at least one of these dose optimization techniques: Automated exposure control mA and/or kV adjustment per patient size (includes targeted exams where dose is matched to clinical indication) or iterative reconstruction. RADIATION DOSE: CTDI: 14 mGy DLP: 1122 mGy-cm FINDINGS: AORTA: The visualized lower abdominal aorta is patent. There is moderate soft and calcified plaque. RIGHT LOWER EXTREMITY RUN-OFF: Common iliac: Patent without hemodynamically significant stenosis. External iliac: Patent without hemodynamically significant stenosis. Internal iliac: Patent without hemodynamically significant stenosis. CLIENT SERVICES ADMINISTRATOR: Patent without hemodynamically significant stenosis. SFA: There is long segment stenosis in the mid and distal thigh ranging 40-90% luminal narrowing. There is in stent restenosis in the adductor canal measuring approximately 50% focally in the middle of the stent. Profunda Femoris: There is approximately 60% focal stenosis shortly after the origin. Popliteal: Patent without hemodynamically significant stenosis. No aneurysm or abnormal medial deviation is noted. Anterior Tibial: There is a focal 60% stenosis in the upper portion of the artery. There is otherwise no significant narrowing. Tibioperoneal Trunk: 80-90% stenosis throughout. Peroneal: Patent without hemodynamically significant stenosis. Posterior Tibial: Likely congenitally small. Numerous severe/critical stenoses dispersed throughout the length of the artery although it appears patent. Dorsalis Pedis: Patent without hemodynamically significant stenosis. The common and lateral plantar arteries are patent. LEFT LOWER EXTREMITY RUN-OFF: Common iliac: Patent without hemodynamically significant stenosis. External iliac: Patent without hemodynamically significant stenosis. Internal iliac: Patent without hemodynamically significant stenosis. CLIENT SERVICES ADMINISTRATOR: Patent without hemodynamically significant stenosis. SFA: Focal 70% stenosis in the upper thigh. Numerous stenoses up to 50%. Short segment 80% stenosis in the adductor canal. Profunda Femoris: Patent without hemodynamically significant stenosis. Popliteal: Patent without hemodynamically significant stenosis. No aneurysm or abnormal medial deviation is noted. Anterior Tibial: Patent without hemodynamically significant stenosis. Tibioperoneal Trunk: Heavy calcification degrades evaluation. Peroneal: Patent without hemodynamically significant stenosis. Posterior Tibial: Likely congenitally small. Long segment occlusion in the mid calf with distal reconstitution. Dorsalis Pedis: Patent without hemodynamically significant stenosis. The common and lateral plantar arteries are patent. The plantar arteries are predominantly supplied by anastomosis from the dorsal pedal and peroneal arteries. ADDITIONAL FINDINGS: The urinary bladder is distended with contrast. There is also contrast filling the vaginal vault, likely secondary to urination in the supine position as the patient has a wick. No vesicovaginal fistula is identified. There is mild diffuse edema of the soft tissues of bilateral lower legs, right worse than left. There are small bilateral knee effusions, right worse than left. No free fluid or organized fluid collection is identified. There is plate and screw fixation of the distal right femur. There is left tibial intramedullary cj. IMPRESSION: Long segment right SFA stenosis in the mid thigh up to 90%. Approximately 50% adductor canal in stent restenosis. Approximately 80-90% stenosis of the tibioperoneal trunk. There appears to be 3-vessel runoff to the right foot. Numerous stenoses in the left SFA, the greatest measuring approximately 80% in the adductor canal. The left TP trunk is too calcified to evaluate. 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 There appears to be 2-vessel runoff to the left foot by the anterior tibial and peroneal arteries.
--- NOTE | 2024-11-30 18:21 | CARDIOLOGY REPORT ---
APPROVED REPORT EXAM: Limited 2D, Doppler, and color-flow Echocardiogram. Patient Location: 3022 Blood Pressure: 185/105 mmHg Heart Rate: 91 bpm Rhythm: NSR Indications CHF SOB COPD AFIB CAD Pro BNP 2720 Network Development Coordinator is Maria T Martin MD Previous echo 08/16/24 [facility] 60% ; m TR ; RVSP 53 LEFT VENTRICLE LV appears normal in size with moderate concentric hypertrophy. Overall systolic function appears normal. Overall LVEF is 55%. RIGHT VENTRICLE RV appears mildly dilated with normal contractility. MITRAL VALVE MV is thickened with mild annular calcification and trace regurgitation TRICUSPID VALVE The tricuspid valve is normal in structure. Trace tricuspid regurgitation. PERICARDIUM There is no pericardial effusion. Left Pleural effusion. Conclusion Overall LVEF is 55%. LV appears normal in size with moderate concentric hypertrophy. Overall systolic function appears normal. RV appears mildly dilated with normal contractility. MV is thickened with mild annular calcification and trace regurgitation Trace tricuspid regurgitation. There is no pericardial effusion. Left Pleural effusion.
[2024-11-30] MEDS: INSULIN LISPRO 100 UNIT/ML INSULN.PEN MULTI-DOSE SQ SCH (18:41)
[2024-11-30] MEDS: HEPARIN DRIP DVT/PE -**PHARMACIST TO DOSE IV ONE (18:45)
[2024-11-30] MEDS ORDERED: heparin 10,000 units/1 ML INJ IV ONE (18:55)
[2024-11-30] MEDS ORDERED: heparin 10,000 units/1 ML INJ IV PRN (18:55)
[2024-11-30] MEDS: MESSAGE TO NURSING IV ONE (19:05)
[2024-11-30] MEDS: heparin 25,000 UNIT/250ml bag 250 ML IV PRN (19:51)
[2024-11-30] MEDS ORDERED: levetiracetam inj 1,000 MG in normal saline 100ml IV soln 100 ML IV SCH (20:00)
[2024-11-30] MEDS: furosemide 10 MG/1 ML 10ml inj IV SCH (20:00)
[2024-11-30] MEDS: BUDESONIDE IH SCH (20:00)
[2024-11-30] MEDS: FORMOTEROL IH SCH (20:00)
[2024-11-30] MEDS: K and/or MAG REPLACEMENT MC SCH (20:00)
[2024-11-30] MEDS: insulin glargine (Lantus) pen - multi-dose SQ SCH (20:04)
[2024-11-30] MEDS: docusate sod 100mg capsule PO SCH (20:05)
[2024-11-30] MEDS: potassium Cl 20 mEq SR tablet PO PRN (20:05)
[2024-11-30 20:14] LABS: MEAN PLATELET VOLUME 9.3 FL (7.4-10.4); RED CELL DISTRIBUTION WIDTH 14.6 % (11.5-14.5)
[2024-11-30 20:27] LABS: APTT 27 SECONDS (22-32); INR 1.1 INR
--- NOTE | 2024-11-30 20:52 | PROGRESS NOTE ---
Progress Note ID Providers to CC ~ Progress Note Progress Note: Dr. Lal to evaluate for percutansous intervention SHIRA GARCIA MD Nov 30, 2024 20:52
[2024-11-30] MEDS ORDERED: insulin glargine (Lantus) pen - multi-dose SQ SCH (21:00)
[2024-12-01] VITALS (17 sets, daily range): BP systolic 98–146; BP diastolic 57–87; PULSE 69–88; RESP 14–20; TEMP 97.6–98.1; O2SAT 94–98
[2024-12-01 02:07] LABS: MEAN PLATELET VOLUME 8.5 FL (7.4-10.4); RED CELL DISTRIBUTION WIDTH 14.9 % (11.5-14.5)
[2024-12-01 02:32] LABS: CREATININE 1.04 MG/DL (0.40-0.90); TOTAL CARBON DIOXIDE 27.6 MMOL/L (24-32); eCRCL 46 ML/MIN; eGFR 54 ML/MIN
[2024-12-01] MEDS: MESSAGE TO NURSING IV ONE ×2 (03:08→08:57)
[2024-12-01] MEDS: nicotine 21mg patch - 24 hr TD SCH (08:00)
[2024-12-01] MEDS ORDERED: EMPAGLIFLOZIN 25 MG TABLET PO SCH (08:00)
[2024-12-01] MEDS ORDERED: enoxaparin 40mg/0.4ml syringe SUBCUT SCH (08:00)
[2024-12-01] MEDS: EMPAGLIFLOZIN 10 MG TABLET PO SCH (08:49)
[2024-12-01] MEDS: metoprolol succinate 25mg (24-HOUR) SR. Tablet PO SCH (08:49)
[2024-12-01] MEDS: sodium bicarbonate (8.4%) inj. 50 MEQ in dextrose 5%-water 1,000 ML IV SCH (08:55)
[2024-12-01] MEDS ORDERED: LIDOcaine 1% 30ml preserv. free vial ONE (09:09)
[2024-12-01] MEDS ORDERED: midazolam 1 mg/ML 2ml injection ONE ×3 (09:09→10:31)
[2024-12-01] MEDS ORDERED: heparin 1,000unit/ml 10ml vial 10 ML ONE (09:10)
[2024-12-01] MEDS ORDERED: fentaNYL/PF 50MCG/1 ML 2ML syringe ONE ×2 (09:10→10:49)
[2024-12-01] MEDS ORDERED: clopidogrel 300mg tablet ONE (11:19)
[2024-12-01] MEDS ORDERED: LIDOCAINE 2%/EPI 1:100,000 inj. Multi-dose 20 ML VIAL ONE (11:34)
--- NOTE | 2024-12-01 12:17 | CARDIOLOGY REPORT ---
DATE OF SERVICE: 12/01/2024 DICTATING PHYSICIAN: ODALYS MARTINEZ DO CARDIAC CATHETERIZATION REPORT REFERRING PHYSICIAN: Odalys Martinez DO CLINICAL HISTORY: This 59-year-old woman is currently admitted for right foot pain. She has known peripheral vascular disease and has previously had a stent placed to the distal SFA. CT angiography shortly after admission purportedly showed a 90% stenosis in the SFA, 50% narrowing in the previously placed stent and a 90% stenosis in the tibioperoneal artery. Her foot is still warm and she has full movement of the foot. PROCEDURES PERFORMED: 1. Left common femoral arterial access. 2. Left/ipsilateral iliac and proximal femoral arteriography. 3. Contralateral iliac and proximal femoral arteriography. 4. Placement of a crossover catheter in the contralateral/right common femoral artery. 5. Contralateral emoral and popliteal arteriography. 6. Placement of a catheter in the right/contralateral popliteal artery. 7. Contralateral popliteal and infrapopliteal arteriographic runoff. 8. Balloon angioplasty, right proximal mid superficial femoral artery. 9. Drug-eluting balloon angioplasty (proximal mid right/contralateral superficial femoral artery). 10. Percutaneous arteriotomy closure (Perclose). 11. Conscious sedation time was 90 minutes. DESCRIPTION OF PROCEDURE: The patient was sedated with fentanyl and Versed. She was then prepared and draped in the usual manner. The left inguinal area was infiltrated with 1% lidocaine using a micropuncture set in a Seldinger technique. A 7-Italian sheath was placed in the common femoral artery. Arteriography of the iliac and proximal femoral arteries were obtained. A 6-Italian CRISTOBAL catheter was placed at the iliac bifurcation with the tip directed into the right / contralateral common iliac artery. A glide advantage wire was passed down through the iliac and the superficial femoral artery and positioned in the proximal right/contralateral popliteal artery. The short 7-Italian sheath was removed and a 45-cm destination sheath was passed over the guidewire and positioned in the right/contralateral common femoral artery. Additional arteriography of the femoral and popliteal artery was performed. Using the same guidewire, a 5-Italian angled glide catheter was positioned in the right / contralateral popliteal artery and using this catheter, more detailed arteriography of the popliteal and infrapopliteal vessels was performed. Using the [place] catheter, there was a pullback performed in the right superficial femoral artery beginning in the stent and then back well proximal to the stent across an area of multiple moderate-looking stenoses from the stent to well above the multiple lesions complex. There was a 50-60 mmHg pressure gradient. Using the [place] catheter, the [place] Advantage wire was placed distally within the SFA and popliteal artery. The lesion complex in question was dilated with a 5 x 100 mm balloon at 18 atmospheres. Following the balloon was removed and a 6 x 120 EV3 self-expanding stent was placed in an overlapping fashion in the stent and well back above the lesion complex just described. The stent was deployed. It was then post dilated for 3 minutes at 8 atmospheres with a 6 x 120 mm MacroGenicstronic drug-eluting balloon. Final arteriography of this lesion complex was performed. The sheath was removed and the left common femoral arterial access was successfully Perclosed. RESULTS: 1. There was no significant obstructive disease in either iliac system. 2. Both common femoral arteries were patent and unobstructed. 3. The right profunda femoris artery contained a proximal 40% to 50% narrowing but no high-grade stenoses. 4. The proximal mid right / contralateral superficial femoral artery contained multiple areas of about 50% narrowing and haziness above a previously placed stent. As already noted above, there was about a 60 mm gradient across this lesion complex. 5. The old stent was patent and there was no more than about a 40% to 50% focal area of in-stent restenosis. 6. The popliteal artery was patent and unobstructed. 7. If there was a tibioperoneal artery, it is actually the direct continuation of the popliteal artery with no obvious division in appearance. The anterior tibial artery was patent down to the foot and flowed well into the foot. The peroneal artery was occluded proximally. The posterior tibial artery was occluded proximally, but there was reasonably good reconstitution of the anterior tibial above the ankle and there was very excellent arborization of arterial vessels in the foot. 8. Successful balloon angioplasty, stent and drug-eluting balloon angioplasty directed at a new lesion in the proximal/mid right superficial femoral artery. The newly placed stent covered this area and overlapped into an old stent in the distal vessel. Following the intervention, there was wide open vessel and no significant residual stenosis. RECOMMENDATIONS: Recommendation is ongoing medical therapy. It is not clear that this patient's foot pain is due to arterial insufficiency. In fact, I think it is quite unlikely either she has a diabetic neuropathy or there may be an element of edema. In any case, it would be reasonable for this patient's amlodipine to be stopped and replaced with something else since it is a cause of lower extremity edema and could be contributing to the problem. Plavix has been resumed. She should remain on Eliquis as an outpatient. ODALYS MARTINEZ DO TID: [id number] RECEIPT: [id number] LOW/PEREZ MTDD
[2024-12-01 14:15] LABS: URINE AMPHETAMINE SCREEN POSITIVE (Neg); URINE BARBITUATE SCREEN NEGATIVE (Neg); URINE BENZODIAZEPINES SCREEN NEGATIVE (Neg); URINE CANNABINOID SCREEN NEGATIVE (Neg); URINE COCAINE SCREEN NEGATIVE (Neg); URINE METHADONE SCREEN NEGATIVE (Neg); URINE OPIATE SCREEN POSITIVE (Neg); URINE PHENCYCLIDINE SCREEN NEGATIVE (Neg)
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
[2024-12-01] MEDS: Permethrin 1% 59ml topical rinse TP ONE (21:26)
[2024-12-02] VITALS (14 sets, daily range): BP systolic 108–128; BP diastolic 54–68; PULSE 68–86; RESP 12–22; TEMP 97–98.2; O2SAT 93–98
[2024-12-02] MEDS: heparin 10,000 units/1 ML INJ SQ ONE (00:36)
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
[2024-12-02 06:27] LABS: MEAN PLATELET VOLUME 8.9 FL (7.4-10.4); RED CELL DISTRIBUTION WIDTH 14.8 % (11.5-14.5)
[2024-12-02 06:38] LABS: CREATININE 1.34 MG/DL (0.40-0.90); TOTAL CARBON DIOXIDE 29.3 MMOL/L (24-32); eCRCL 36 ML/MIN; eGFR 40 ML/MIN
[2024-12-02] MEDS: clopidogrel 300mg tablet PO ONE (10:56)
[2024-12-02] MEDS: HYDROcodone/acetaminophen 10/325mg tab PO PRN (13:00)
[2024-12-02] MEDS: normal saline 500ml IV soln 500 ML IV ONE (13:47)
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
[2024-12-03] VITALS (11 sets, daily range): BP systolic 137–174; BP diastolic 67–91; PULSE 78–87; RESP 12–20; TEMP 96.3–98.6; O2SAT 93–97
[2024-12-03 06:29] LABS: MEAN PLATELET VOLUME 9.0 FL (7.4-10.4); RED CELL DISTRIBUTION WIDTH 14.8 % (11.5-14.5)
[2024-12-03 06:58] LABS: CREATININE 1.57 MG/DL (0.40-0.90); TOTAL CARBON DIOXIDE 27.3 MMOL/L (24-32); eCRCL 31 ML/MIN; eGFR 34 ML/MIN
[2024-12-03 12:48] LABS: C DIFF ANTIGEN NEGATIVE (NEGATIVE); C DIFF SPECIMEN=DIARRHEA? ACCEPTABLE; C DIFFICILE TOXINS A&B NEGATIVE (Neg)
[2024-12-03] MEDS ORDERED: ipratropium/albuterol 3ml nebule NEB PRN (15:55)
--- NOTE | 2024-12-03 16:01 | PROGRESS NOTE- Residence ---
Progress Note - Resident Providers to CC Resident Creating Document: [facility] ~ Antibiotic Timeout Antibiotic Ordered?: No Subjective Patient was seen and examined at bedside. Patient reports right leg pain after stent placement, controlled with pain medication. She complains of watery diarrhea without nausea, vomiting or abdominal pain. No overnight events reported. Objective Vital Signs Date Time Temp Pulse Resp B/P (MAP) Pulse Ox O2 Delivery O2 Flow Rate FiO2 12/03/24 15:16 18 12/03/24 11:13 81 Room Air 0.0 12/03/24 11:04 95 21 12/03/24 06:00 96.9 137/75 (95) Result Diagram: 12/03/2448 12/03/24547 General: Awake, oriented to person, place and time; HEENT: Conjunctive are pink, sclerae clear, no icterus, pupil is equal in both sides, reactive to light, no ear discharge, no pharyngeal erythema or an edema. Neck: Supple, no JVD, no lymphadenopathy and thyromegaly. Chest: Decreased breath sounds noted in the right basilar region, vesicular breath sounds, no wheezing heard, bibasilar crackles heard Cardiovascular: S1-S2 regular sinus rhythm and, regular rate, no gallops, no rubs, no murmurs Abdomen: Bowel sounds present on auscultation, soft, distended, mildly tender to palpation in epigastric region, no guarding, no rigidity, ascitic abdomen noted Extremities: Right toes deformed post an accident, 1+ bilateral pitting edema bilaterally, capillary refill intact, feeble peripheral pulse noted on the right lower extremity, patient had a right lower extremity stent placed, dressing in place Musculoskeletal: No joint swelling, right leg deformity noted, inflammations, and no scoliosis and back tenderness Skin: Warm and dry. Moist oral mucosa. Coagulation Studies Laboratory Tests Test 11/30/24 19:30 12/01/24 07:49 Prothrombin Time 11.0 SECONDS (9.0-12.0) INR International Normalized Ratio 1.1 INR Activated Partial Thromboplast Time 27 SECONDS (22-32) APTT (Heparin Protocol) 62 SECONDS (45-75) Coagulation Comments Assessment Assessment 59-year-old female history of methamphetamine use, atrial fibrillation not on anticoagulation, COPD coronary artery disease status post two PCIs, type 2 diabetes mellitus, HFpEF presented with a chief complaints of fatigue for the last one month, shortness of breath for the last two weeks. Plan Plan 1. Acute on chronic congestive heart failure with preserved ejection fraction 55% NYHA IV(symptoms present even at rest), AHA classification stage C Patient presented with progressive shortness for breath and fatigue for the past month ProBNP 2547, troponins negative, 5% decrease in EF compared to previous echocardiogram Chest x-ray: Cardiomegaly with pulmonary vascular congestion and right pleural effusion. Echocardiogram: Overall LVEF is 55%. LV appears normal in size with moderate concentric hypertrophy. Overall systolic function appears normal. Plan - 12/03/24 Started on Jardiance 10 mg, metoprolol 25 mg, lisinopril 20 mg Lasix 40 mg IV daily Strict I&O, daily weight Repeat chest x-ray today 2. Acute on chronic limb ischemia, S/p balloon angioplasty in the proximal mid right superficial femoral artery. Possible complicated by diabetic nephropathy Patient complained of severe right lower extremity and left lower extremity pain She also has a history of methamphetamine use disorder and medication noncompliance, probably worsening limb ischemia Arterial ultrasound : 50-79% stenosis demonstrated in Right SFA Proximally,examination could not be done as patient was not pain Consulted Dr. Bliss recommended lower extremity CTA Lower extremity CTA showed: 1.Long segment right SFA stenosis in the mid thigh up to 90%. Approximately 50% adductor canal in stent restenosis. Approximately 80-90% stenosis of the tibioperoneal trunk. There appears to be 3-vessel runoff to the right foot. 2.Numerous stenoses in the left SFA, the greatest measuring approximately 80% in the adductor canal. The left TP trunk is too calcified to evaluate. Left [employer] occluded in mid calf with distal reconstitution. There appears to be 2-vessel runoff to the left foot by the anterior tibial and peroneal arteries. Patient underwent procedure by Dr. Lal, as per his post surgical note: No obstructive disease in either iliac system, both femoral arteries were patent and unobstructed, proximal mid right femoral artery contained multiple areas of 50% narrowing with haziness previously placed stent, Patient underwent successful balloon angioplasty, stent and drug-eluting balloon angioplasty at a new lesion in the proximal mid right superficial femoral artery, newly placed stent covered this area and overlapped an old stent. Plan Continue Plavix and Eliquis Pain management Vascular surgery outpatient follow-up 3. ARMANDO secondary to contrast induced nephropathy (renal tubular stasis) Patient received contrast for CTA chest, CTA bilateral lower extremities and CTA for stent placement in OR. Creatinine trended up to 1.57. Plan 500 mL NS was administered yesterday. We will avoid IV fluids at this time given acute CHF and right pleural effusion Ordered urine lytes + urinalysis with microscopy Monitor kidney function closely 4. Hypertensive emergency On arrival patient's blood pressure was 201/102mmhg;Patient received one dose of hydralazine 5 mg IV Patient's blood pressure is well controlled now, BP 137/75mmHg Continue metoprolol 25 mg p.o. and lisinopril 20 mg D/C amlodipine due to peripheral edema 5. Acute hypoxemic respiratory failure Most likely secondary to congestive heart failure Right Pleural effusion On arrival patient's saturation was 91%, patient was requiring 1 L of oxygen saturating at 95% Patient is now breathing comfortably in room air Maintain saturation >95%, titrate oxygen if needed History of recurrent pleural effusion Light's criteria not met-transudative effusion most likely secondary to heart failure Patient's chest x-ray showed massive pleural effusion in the right side [employer]vator [employer] team was consulted, thoracentesis was done-1900 cc of fluid was removed Pathology specimen sent No wheezing present today Plan DuoNebs q.4h p.r.n. Decreased Solu-Medrol to 40 mg q.12 h Incentive spirometry 6. Chronic Atrial fibrillation Restarted Eliquis 5 mg p.o. b.i.d. Continue amiodarone 100 mg p.o. 7. Diabetes mellitus type 2 Complicated with diabetic nephropathy Patient's HbA1c is elevated 9.2 She is not compliant with medication Plan Glucose still not controlled Started on Jardiance 10 mg daily Lantus increased to 30 units HS Hyper/hypoglycemia protocol placed 8. Coronary artery disease status post PCI Hyperlipidemia-deranged lipid panel Total cholesterol 243, LDL 157 and HDL 65 Plan Continue Plavix Atorvastatin increased to 80 mg daily 9. Active methamphetamine and tobacco use Utox positive for methamphetamine and opiates Initiated the patient 21 mg nicotine patch Substance use navigator and renal social worker consult in place Discussing smoking cessation with the patient including the risk continued smoking with the patient including: lung cancer, stroke, heart attack, poor wound healing, increase in facial drinking, risk of MRSA skin infections. Code Status: Full code DVT Prophylaxis: Heparin Lines/Tubes: None Nutrition: 2 g sodium restricted diet/diabetic diet PT: Pending Prognosis: Guarded Disposition: Continue medical treatment. Possible discharge tomorrow if kidney function is stable. Resident MD attestation The above note has been reviewed and supervised by a senior resident PGY2/PGY3 Patient was seen, examined and discussed with the attending physician Date of Service: Dec 03, 2024 Billing Provider: ILDIA GILLETTE MD, LUCAS, RES Dec 03, 2024 16:01
[2024-12-03] MEDS: loperamide 2mg capsule PO PRN (17:13)
--- NOTE | 2024-12-03 17:32 | RADIOLOGY REPORT ---
CHEST RADIOGRAPH Indication: Evaluation of right pleural effusion Technique: Single frontal view of the chest was obtained COMPARISON: CT CTA CHEST PE W/ IV CONTRAST on DOS: 11/30/24, DI CHEST,SINGLE VIEW on DOS: 11/30/24, DI CHEST,SINGLE VIEW on DOS: 09/19/24, DI CHEST,SINGLE VIEW on DOS: 09/15/24, CT CT CHEST W/ IV CONTRAST on DOS: 09/11/24 FINDINGS: Cardiomegaly. Moderate right pleural effusion, decreased from prior. No pneumothorax. There is mild bilateral vascular congestion. No acute osseous abnormality IMPRESSION: Moderate right pleural effusion, decreased from prior. No pneumothorax. Cardiomegaly and mild vascular congestion
[2024-12-03] MEDS: methylPREDNISolone sod succ/PF 40mg inj. IV SCH (20:18)
[2024-12-03] MEDS: insulin glargine (Lantus) pen - multi-dose SQ SCH (20:28)
[2024-12-03] MEDS: hydrALAZINE 20mg/ml inj. IV ONE (21:29)
[2024-12-04] VITALS (10 sets, daily range): BP systolic 116–182; BP diastolic 57–94; PULSE 64–103; RESP 14–18; TEMP 96.4–97.5; O2SAT 96–99
[2024-12-04 07:24] LABS: MEAN PLATELET VOLUME 9.5 FL (7.4-10.4); RED CELL DISTRIBUTION WIDTH 14.7 % (11.5-14.5)
[2024-12-04 07:51] LABS: CREATININE 1.39 MG/DL (0.40-0.90); TOTAL CARBON DIOXIDE 27.4 MMOL/L (24-32); eCRCL 34 ML/MIN; eGFR 39 ML/MIN
[2024-12-04] MEDS ORDERED: hydrALAZINE 20mg/ml inj. IV PRN (08:45)
--- NOTE | 2024-12-04 13:11 | PROGRESS NOTE- Residence ---
Progress Note - Resident Providers to CC Resident Creating Document: [facility] ~ Antibiotic Timeout Antibiotic Ordered?: No Subjective Patient was seen and examined at the bedside. The diarrhea is resolving and she denies abdominal pain, nausea or vomiting. Right leg pain is controlled. Today she complained of intermittent shortness of breath but denies fever, productive cough or orthopnea. Objective Vital Signs Date Time Temp Pulse Resp B/P (MAP) Pulse Ox O2 Delivery O2 Flow Rate FiO2 12/04/24 11:57 18 12/04/24 11:00 96.4 64 116/57 (76) 99 Room Air 12/04/24 08:23 3 32 Result Diagram: 12/04/2470412/04/24704 General: Awake, oriented to person, place and time; HEENT: Conjunctive are pink, sclerae clear, no icterus, pupil is equal in both sides, reactive to light, no ear discharge, no pharyngeal erythema or an edema. Neck: Supple, no JVD, no lymphadenopathy and thyromegaly. Chest: Decreased breath sounds noted in the right basilar region, normal vesicular breath sounds, no wheezing or crackles heard Cardiovascular: S1-S2 regular sinus rhythm and, regular rate, no gallops, no rubs, no murmurs Abdomen: Bowel sounds present on auscultation, soft, distended, mildly tender to palpation in epigastric region, no guarding, no rigidity, ascitic abdomen noted Extremities: Right toes deformed post an accident, 1+ bilateral pitting edema bilaterally, capillary refill intact, feeble peripheral pulse noted on the right lower extremity, patient had a right lower extremity stent placed, dressing in place Musculoskeletal: No joint swelling, right leg deformity noted, inflammations, and no scoliosis and back tenderness Skin: Warm and dry. Moist oral mucosa. Coagulation Studies Laboratory Tests Test 11/30/24 19:30 12/01/24 07:49 Prothrombin Time 11.0 SECONDS (9.0-12.0) INR International Normalized Ratio 1.1 INR Activated Partial Thromboplast Time 27 SECONDS (22-32) APTT (Heparin Protocol) 62 SECONDS (45-75) Coagulation Comments Assessment Assessment 59-year-old female history of methamphetamine use, atrial fibrillation not on anticoagulation, COPD coronary artery disease status post two PCIs, type 2 diabetes mellitus, HFpEF presented with a chief complaints of fatigue for the last one month, shortness of breath for the last two weeks. Plan Plan 1. Acute on chronic congestive heart failure with preserved ejection fraction 55% NYHA IV(symptoms present even at rest), AHA classification stage C Patient presented with progressive shortness for breath and fatigue for the past month ProBNP 2547, troponins negative, 5% decrease in EF compared to previous echocardiogram Chest x-ray: Cardiomegaly with pulmonary vascular congestion and right pleural effusion. Echocardiogram: Overall LVEF is 55%. LV appears normal in size with moderate concentric hypertrophy. Overall systolic function appears normal. Plan - 12/03/24 Started on Jardiance 10 mg, metoprolol 25 mg, lisinopril 20 mg Lasix 40 mg IV daily Strict I&O, daily weight Repeat chest x-ray today 12/04/24 CXR: Moderate right pleural effusion, decreased from prior. No pneumothorax. Cardiomegaly and mild vascular congestion Continue Lasix 40 mg IV daily Requested physical therapy evaluation Anticipated discharge tomorrow 2. Acute on chronic limb ischemia, S/p balloon angioplasty in the proximal mid right superficial femoral artery. Possible complicated by diabetic nephropathy Patient complained of severe right lower extremity and left lower extremity pain She also has a history of methamphetamine use disorder and medication noncompliance, probably worsening limb ischemia Arterial ultrasound : 50-79% stenosis demonstrated in Right SFA Proximally,examination could not be done as patient was not pain Consulted Dr. Bliss recommended lower extremity CTA Lower extremity CTA showed: 1.Long segment right SFA stenosis in the mid thigh up to 90%. Approximately 50% adductor canal in stent restenosis. Approximately 80-90% stenosis of the tibioperoneal trunk. There appears to be 3-vessel runoff to the right foot. 2.Numerous stenoses in the left SFA, the greatest measuring approximately 80% in the adductor canal. The left TP trunk is too calcified to evaluate. Left [employer] occluded in mid calf with distal reconstitution. There appears to be 2-vessel runoff to the left foot by the anterior tibial and peroneal arteries. Patient underwent procedure by Dr. Lal, as per his post surgical note: No obstructive disease in either iliac system, both femoral arteries were patent and unobstructed, proximal mid right femoral artery contained multiple areas of 50% narrowing with haziness previously placed stent, Patient underwent successful balloon angioplasty, stent and drug-eluting balloon angioplasty at a new lesion in the proximal mid right superficial femoral artery, newly placed stent covered this area and overlapped an old stent. Plan - 12/04/24 Continue Plavix and Eliquis Pain management Vascular surgery outpatient follow-up 3. ARMANDO secondary to contrast induced nephropathy (renal tubular stasis) Patient received contrast for CTA chest, CTA bilateral lower extremities and CTA for stent placement in OR. Creatinine trended up to 1.57. Plan - 12/03/24 500 mL NS was administered yesterday. We will avoid IV fluids at this time given acute CHF and right pleural effusion Ordered urine lytes + urinalysis with microscopy Monitor kidney function closely 12/04/24 Creatinine improving from 1.57 -> 1.39 Pending urinalysis 4. Hypertensive emergency On arrival patient's blood pressure was 201/102mmhg;Patient received one dose of hydralazine 5 mg IV Continue metoprolol 25 mg p.o. and lisinopril 20 mg D/C amlodipine due to peripheral edema 12/04/24 PAS 145-174mmHg yesterday, pulse 74-103bpm Increase metoprolol from 25mg to 50mg daily Hydralazine 10 mg IV p.r.n. 5. Acute hypoxemic respiratory failure Most likely secondary to congestive heart failure Right Pleural effusion On arrival patient's saturation was 91%, patient was requiring 1 L of oxygen saturating at 95% Patient is now breathing comfortably in room air Maintain saturation >95%, titrate oxygen if needed History of recurrent pleural effusion Light's criteria not met-transudative effusion most likely secondary to heart failure Patient's chest x-ray showed massive pleural effusion in the right side [employer] team was consulted, thoracentesis was done-1900 cc of fluid was removed Pathology specimen sent No wheezing present today Plan DuoNebs q.4h p.r.n. Decreased Solu-Medrol to 40 mg q.12 h Incentive spirometry 12/04/24 Taper steroid dose every other day Continue incentive spirometry 6. Chronic Atrial fibrillation Restarted Eliquis 5 mg p.o. b.i.d. Continue amiodarone 100 mg p.o. 7. Diabetes mellitus type 2 Complicated with diabetic nephropathy Patient's HbA1c is elevated 9.2 She is not compliant with medication Plan 12/04/24 Glucose still not controlled Started on Jardiance 10 mg daily Lantus increased to 30 units HS Hyper/hypoglycemia protocol placed 8. Coronary artery disease status post PCI Hyperlipidemia-deranged lipid panel Total cholesterol 243, LDL 157 and HDL 65 Plan Continue Plavix Atorvastatin increased to 80 mg daily 9. Active methamphetamine and tobacco use Utox positive for methamphetamine and opiates Initiated the patient 21 mg nicotine patch Substance use navigator and social sciences research scientist consult in place Discussing smoking cessation with the patient including the risk continued smoking with the patient including: lung cancer, stroke, heart attack, poor wound healing, increase in facial drinking, risk of MRSA skin infections. Code Status: Full code DVT Prophylaxis: Heparin Lines/Tubes: None Nutrition: 2 g sodium restricted diet/diabetic diet PT: Pending Prognosis: Guarded Disposition: Continue medical treatment. Anticipated discharge tomorrow, pending physical therapy evaluation. Resident MD attestation The above note has been reviewed and supervised by a senior resident PGY2/PGY3 Patient was seen, examined and discussed with the attending physician Date of Service: Dec 04, 2024 Billing Provider: LIDIA GILLETTE MD, LUCAS, RES Dec 04, 2024 13:11
[2024-12-04] MEDS: hydrALAZINE 20mg/ml inj. IV ONE (22:15)
[2024-12-04 22:30] LABS: LEUKOCYTE ESTERASE ,URINE NEGATIVE (Neg); NITRITES, URINE NEGATIVE (Neg); OCCULT BLOOD,URINE SMALL (Neg)
[2024-12-04 22:36] LABS: UA COLLECTION TYPE NON-SPECIFIED
[2024-12-04 22:37] LABS: SQUAMOUS EPITHELIAL CELL,UR FEW /LPF (FEW)
[2024-12-04 22:39] LABS: YEAST FEW /HPF (NEGATIVE)
[2024-12-05] VITALS (7 sets, daily range): BP systolic 143–166; BP diastolic 71–89; PULSE 70–76; RESP 11–20; TEMP 97–98.6; O2SAT 94–98
[2024-12-05] MEDS: hydrALAZINE 20mg/ml inj. IV ONE (03:17)
[2024-12-05 06:16] LABS: MEAN PLATELET VOLUME 8.9 FL (7.4-10.4); RED CELL DISTRIBUTION WIDTH 14.6 % (11.5-14.5)
[2024-12-05 06:17] LABS: CREATININE 1.18 MG/DL (0.40-0.90); TOTAL CARBON DIOXIDE 27.7 MMOL/L (24-32); eCRCL 41 ML/MIN; eGFR 47 ML/MIN
[2024-12-05] MEDS: albuterol 2.5 MG/3 ML nebule NEB PRN (07:50)
[2024-12-05] MEDS: metoprolol succinate 25mg (24-HOUR) SR. Tablet PO SCH (08:05)
[2024-12-05] MEDS: HYDROcodone/acetaminophen 5mg/325mg tablet PO PRN (08:07)
[2024-12-05] MEDS ORDERED: FURO-150 PO (11:06)
[2024-12-05] MEDS ORDERED: EMPA10TA PO (11:06)
[2024-12-05] MEDS ORDERED: METO-395 PO (11:06)
[2024-12-05] MEDS ORDERED: LISI10TA27 PO (11:06)
[2024-12-05] MEDS ORDERED: INSU100I31 SQ (11:06)
[2024-12-05] MEDS ORDERED: IVER3TAB2 PO (13:42)
--- NOTE | 2024-12-05 16:54 | DISCHARGE SUMMARY-Residence ---
Discharge Summary Providers to CC Resident Creating Document: [facility] ~ Discharge Summary Admission Diagnosis: ACUTE ON CHRONIC CONGESTIVE HEART FAILURE Hospital Course DATE OF ADMISSION: 11/30/24 DATE OF DISCHARGE: 12/05/24 Chest x-ray Cardiomegaly with pulmonary vascular congestion and right pleural effusion. Venous ultrasound There is no evidence for DVT in the right lower extremity. Chest CTA 1. No evidence of pulmonary embolism. 2. Large right and small left pleural effusions, with associated partial right lung atelectasis. Consider therapeutic thoracentesis. 3. Possible upper abdominal ascites, not fully imaged here. Additionally as there is subcutaneous edema diffusely, this is suggestive of anasarca. Echocardiogram Overall LVEF is 55%. LV appears normal in size with moderate concentric hypertrophy. Overall systolic function appears normal. RV appears mildly dilated with normal contractility. MV is thickened with mild annular calcification and trace regurgitation Trace tricuspid regurgitation. There is no pericardial effusion. Left Pleural effusion. Arterial ultrasound Bilateral PROVIDER NETWORK ANALYST, PFA appear multiphasic, Remainder of Right lower extremity appea rs monophasic, patient declined to finishscan on left leg due to right leg pain. 50-79% stenosis demonstrated in Right SFA Proximally. No MODE due to pain-unable to tolerate Thoracocentesis Ultrasound demonstrates a right pleural effusion. Approximately 1.9 liters of serous fluid was removed. Lower extremity CTA Long segment right SFA stenosis in the mid thigh up to 90%. Approximately 50% adductor canal in stent restenosis. Approximately 80-90% stenosis of the tibioperoneal trunk. There appears to be 3-vessel runoff to the right foot. Numerous stenoses in the left SFA, the greatest measuring approximately 80% in the adductor canal. The left TP trunk is too calcified to evaluate. Left LINUX CONSULTANT occluded in mid calf with distal reconstitution. There appears to be 2-vessel runoff to the left foot by the anterior tibial and peroneal arteries. Chest x-ray Moderate right pleural effusion, decreased from prior. No pneumothorax. Cardiomegaly and mild vascular congestion Laboratory Tests Test 12/03/24 17:11 12/03/24 20:23 12/04/24 07:04 12/04/24 07:05 Glucometer 280 mg/dl 307 mg/dl 135 mg/dl White Blood Count 12.5 X10'3 Red Blood Count 4.61 X10'6 Hemoglobin 12.7 g/dl Hematocrit 38.4 % Mean Corpuscular Volume 83.2 FL Mean Corpuscular Hemoglobin 27.5 PG Mean Corpuscular Hemoglobin Concent 33.1 g/dL Red Cell Distribution Width 14.7 % Platelet Count 127 X10'3 Mean Platelet Volume 9.5 FL Neutrophils (%) (Auto) 85.0 % Lymphocytes (%) (Auto) 8.2 % Monocytes (%) (Auto) 6.7 % Eosinophils (%) (Auto) 0 % Basophils (%) (Auto) 0.1 % Neutrophils # (Auto) 10.6 X10'3 Lymphocytes # (Auto) 1.0 X10'3 Monocytes # (Auto) 0.8 X10'3 Eosinophils # (Auto) 0.0 X10'3 Basophils # (Auto) 0.0 X10'3 CBC Comment Sodium Level 135 MMOL/L Potassium Level 3.8 MMOL/L Chloride Level 100 MMOL/L Carbon Dioxide Level 27.4 MMOL/L Anion Gap 8 Blood Urea Nitrogen 53 MG/DL Creatinine 1.39 MG/DL Estimated GFR/1.73 m2 39 ML/MIN BUN/Creatinine Ratio 38.1 Glucose Level 135 MG/DL Calcium Level 7.9 MG/DL Total Bilirubin 0.2 MG/DL Aspartate Amino Transf (AST/SGOT) 22 U/L Alanine Aminotransferase (ALT/SGPT) 12 U/L Alkaline Phosphatase 95 IU/L Total Protein 6.0 G/DL Albumin 1.9 G/DL Globulin 4.1 G/DL Albumin/Globulin Ratio 0.5 Chemistry Comments Test 12/04/24 12:00 12/04/24 17:43 12/04/24 20:12 12/04/24 22:15 Glucometer 222 mg/dl 285 mg/dl 179 mg/dl Urine Specimen Description Non-specified Urine Color Yellow Urine Clarity Clear Urine pH 6.0 Urine Specific [place] 1.020 Urine Protein >=300 mg/dl Urine Glucose (UA) >=1000 mg/dl Urine Ketones Negative mg/dl Urine Occult Blood Small Urine Nitrite Negative Urine Bilirubin Negative Urine Urobilinogen 0.2 E.U/dL Urine Leukocyte Esterase Negative Urine RBC 0-2 /HPF Urine WBC 0-4 /HPF Urine Squamous Epithelial Cells Few /LPF Urine Bacteria 3+ /HPF Urine Yeast Few /HPF Urine Culture Indicated Indicated Volume Urine Centrifuged 10 ml Urine Comment Test 12/05/24 05:19 12/05/24 07:31 12/05/24 12:06 White Blood Count 9.0 X10'3 Red Blood Count 4.49 X10'6 Hemoglobin 12.6 g/dl Hematocrit 37.5 % Mean Corpuscular Volume 83.6 FL Mean Corpuscular Hemoglobin 28.0 PG Mean Corpuscular Hemoglobin Concent 33.5 g/dL Red Cell Distribution Width 14.6 % Platelet Count 99 X10'3 Mean Platelet Volume 8.9 FL Neutrophils (%) (Auto) 85.9 % Lymphocytes (%) (Auto) 9.2 % Monocytes (%) (Auto) 4.8 % Eosinophils (%) (Auto) 0 % Basophils (%) (Auto) 0.1 % Neutrophils # (Auto) 7.7 X10'3 Lymphocytes # (Auto) 0.8 X10'3 Monocytes # (Auto) 0.4 X10'3 Eosinophils # (Auto) 0.0 X10'3 Basophils # (Auto) 0.0 X10'3 CBC Comment Sodium Level 138 MMOL/L Potassium Level 4.0 MMOL/L Chloride Level 104 MMOL/L Carbon Dioxide Level 27.7 MMOL/L Anion Gap 6 Blood Urea Nitrogen 58 MG/DL Creatinine 1.18 MG/DL Estimated GFR/1.73 m2 47 ML/MIN BUN/Creatinine Ratio 49.2 Glucose Level 152 MG/DL Calcium Level 8.0 MG/DL Total Bilirubin 0.2 MG/DL Aspartate Amino Transf (AST/SGOT) 20 U/L Alanine Aminotransferase (ALT/SGPT) 14 U/L Alkaline Phosphatase 102 IU/L Total Protein 5.9 G/DL Albumin 1.9 G/DL Globulin 4.0 G/DL Albumin/Globulin Ratio 0.5 Chemistry Comments Glucometer 117 mg/dl 238 mg/dl Discharge Diagnosis\\Comment: 1. Acute on chronic congestive heart failure with preserved ejection fraction 55% NYHA IV(symptoms present even at rest), AHA classification stage C 2. Acute on chronic limb ischemia, S/p balloon angioplasty in the proximal mid right superficial femoral artery. 3. ARMANDO secondary to contrast induced nephropathy (renal tubular stasis) 4. Hypertensive emergency 5. Acute hypoxemic respiratory failure Most likely secondary to congestive heart failure Right Pleural effusion 6. Chronic Atrial fibrillation 7. Diabetes mellitus type 2 Complicated with diabetic nephropathy 8. Coronary artery disease status post PCI 9. Active methamphetamine and tobacco use 10. Pediculosis capitis 11. Medication noncompliance Operations\\Procedures: Balloon angioplasty in the proximal mid right superficial femoral artery. Consultants: Dr Lal Complications: None Condition on DC: Stable New Medications: Furosemide* (Lasix*) 20 Mg Tablet 2 TAB PO DAILY for 30 Days, #60 TAB Ivermectin (Ivermectin) 3 Mg Tablet 5 TAB PO ONCE for 1 Day, #5 TAB 0 Refills Empagliflozin (Jardiance) 10 Mg Tablet 10 MG PO DAILY for 30 Days, #30 TAB Lisinopril (Lisinopril) 10 Mg Tablet 20 MG PO DAILY for 30 Days, #30 TAB Metoprolol Succinate (Metoprolol Succinate) 25 Mg Tab.sr.24h 50 MG PO DAILY for 30 Days, #30 TAB.SR Changed Medications: Insulin Glargine,Hum.rec.anlog (Basaglar Kwikpen U-100) 100 Unit/Ml (3 Ml) Insuln.pen 30 UNITS SQ QPM, #9 ML (Changed from: 25 UNITS) Continued Medications: Amiodarone Hcl (Cordarone) 200 Mg Tablet 200 MG PO DAILY for 30 Days, #30 TAB Apixaban (Eliquis) 5 Mg Tablet 1 TAB PO BID for 30 Days, #60 TAB 0 Refills Atorvastatin Calcium* (Lipitor*) 40 Mg Tablet 1 TAB PO DAILY for 30 Days, #30 TAB Budesonide/Formoterol Fumarate (Symbicort 80-4.5 Mcg Inhaler) 80 Mcg-4.5 Mcg/Ac tuation Hfa.aer.ad 2 PUFFS INH Q12H for 30 Days, #1 GM 0 Refills Clopidogrel Bisulfate (Clopidogrel) 75 Mg Tablet 75 MG PO DAILY, #30 TAB Do not stop medication unless instructed by prescriber. Insulin Lispro (Insulin Lispro Tonny Kwikpen) 100 Unit/Ml Ins.pen.hf 4 UNIT SQ ACHS, #500 UNITS Discontinued Medications: Amlodipine Besylate (Amlodipine Besylate) 10 Mg Tablet 1 TAB PO DAILY for 30 Days, #30 TAB 0 Refills Lisinopril (Lisinopril) 5 Mg Tablet 5 MG PO DAILY, #30 TAB Discharge Summary: History of present illness Patient was admitted with the following HPI: "59-year-old female history of methamphetamine use, atrial fibrillation not on anticoagulation, COPD coronary artery disease status post two PCIs, C difficile colitis, type 2 diabetes mellitus, HFpEF presented with a chief complaints of fatigue for the last one month, shortness of breath for the last two weeks associated with chest pain rated the pain eight on 10 radiating to the left shoulder described the pain as pressure-like pain, in addition patient also complained of diffuse abdominal pain, with no radiation associated with 4-5 loose stools for the last one month. Patient also complains of excruciating right lower extremity for the last two weeks associated with mild swelling. She denied any history of fever or chills. Patient was brought to the ED by EMS after extreme shortness of breath and was saturating at 91%. Patient is extremely noncompliant with the medication, has not picked up any recent medications for her underlying significant comor bidities. Patient was recently admitted in September 2024 for hypokalemia, acute on chronic diastolic congestive heart failure and sepsis secondary to right pleural effusion, underwent right-sided thoracentesis at that time." Hospital course This is a 59-year-old female patient who has a history of non-compliance with her medications and frequent hospital admissions. She has a medical history that includes methamphetamine use disorder, atrial fibrillation, chronic obstructive pulmonary disease, poorly controlled type 2 diabetes mellitus, and heart failure with preserved ejection fraction. She was admitted due to progressive fatigue and shortness of breath, along with recurrent pleural effusion, which resulted in acute moderate to severe right pleural effusion. The patient required supplemental oxygen to maintain normoxemia, which improved after a therapeutic and diagnostic thoracentesis; this procedure indicated a transudative effusion. During her admission, the patient also reported severe pain in her right leg. Evaluation revealed [id number] limb ischemia, leading her to undergo balloon angioplasty directed at a new lesion in the proximal/mid right superficial femoral artery. A stent was placed that covered this area and overlapped with an older stent in the distal vessel. Following the intervention, the vessel was widely open with no significant residual stenosis. She was started on Eliquis and Plavix and will have follow-up care with Dr. Lal in an outpatient setting. Additionally, the patient has poorly controlled diabetes mellitus, for which her Lantus dosage was increased from 25 to 30 units at bedtime. Efforts were made to reinforce insulin compliance, with adjustments to be managed in the outpatient setting. The patient does not have a primary care provider, but she will receive assistance from the residential case manager to establish one. During her hospital stay, the patient had severely elevated blood pressure with signs of organ dysfunction. She was treated initially with hydralazine and subsequently started on lisinopril at a dose of 20 mg daily. Her metoprolol dosage was increased from 25 mg to 50 mg daily, and amlodipine was discontinued due to severe leg edema. She was also counseled to abstain from smoking and methamphetamine use. As of today, the patient is asymptomatic, denying any chest pain or shortness of breath, and her right leg pain is under control. She has been cleared by physical therapy and is stable for discharge with detailed instructions provided below. Discharge physical exam General: Awake, oriented to person, place and time; HEENT: Conjunctive are pink, sclerae clear, no icterus, pupil is equal in both sides, reactive to light, no ear discharge, no pharyngeal erythema or an edema. Neck: Supple, no JVD, no lymphadenopathy and thyromegaly. Chest: Decreased breath sounds noted in the right basilar region, normal vesicular breath sounds, no wheezing or crackles heard Cardiovascular: S1-S2 regular sinus rhythm and, regular rate, no gallops, no rubs, no murmurs Abdomen: Bowel sounds present on auscultation, soft, distended, mildly tender to palpation in epigastric region, no guarding, no rigidity, ascitic abdomen noted Extremities: Right toes deformed post an accident, 1+ bilateral pitting edema bilaterally, capillary refill intact, feeble peripheral pulse noted on the right lower extremity, patient had a right lower extremity stent placed. Musculoskeletal: No joint swelling, right leg deformity noted, inflammations, and no scoliosis and back tenderness Skin: Warm and dry. Moist oral mucosa. Discharge medications New Medications: Furosemide* (Lasix*) 20 Mg Tablet Ivermectin 3 Mg Tablet Empagliflozin (Jardiance) 10 Mg Tablet Lisinopril 10 Mg Tablet Metoprolol Succinate 25 Mg Tab.sr.24h Changed Medications: Insulin Glargine 30 units,Hum.rec.anlog (Basaglar Kwikpen U-100) 100 Unit/Ml (3 Ml) Insuln.pen Continued Medications: Amiodarone Hcl (Cordarone) 200 Mg Tablet Apixaban (Eliquis) 5 Mg Tablet Atorvastatin 40 Mg Tablet Budesonide/Formoterol Fumarate (Symbicort 80-4.5 Mcg Inhaler) 80 Mcg-4.5 Mcg/Actuation Hfa.aer.ad Clopidogrel Bisulfate (Clopidogrel) 75 Mg Tablet Insulin Lispro (Insulin Lispro Tonny Kwikpen) 100 Unit/Ml Ins.pen.hf Discontinued Medications: Amlodipine Besylate 10 Mg Tablet Lisinopril 5 Mg Tablet Discharge instructions Follow-up with your primary care physician in one week Follow-up with Dr. Lal in one month for stent follow-up. Do not stop Plavix or Eliquis. Take attention to your new medications, be aware of side effects and monitor blood pressure closely. Stop amlodipine Continue Plavix and Eliquis Continue atorvastatin, amiodarone and Symbicort Increase your metoprolol to 50 mg daily Increase lisinopril to 20mg daily Increase your insulin glargine to 30 units at bedtime Take Lasix 40 mg daily Take Jardiance 10 mg daily Take ivermectin five tablets one time dose Monitor glucose closely and adjust your insulin with your primary care Come back in case of persistent shortness of breath or chest pain, productive cough, severe leg pain or any concerning symptoms. *Problems/Diagnosis: (1) Acute exacerbation of congestive heart failure Status: Acute (2) CHF exacerbation Status: Acute (3) Atrial fibrillation Status: Chronic (4) Coronary artery disease Status: Chronic (5) Hyperlipidemia Status: Chronic (6) Hypertension Status: Chronic (7) Hypertensive emergency Status: Acute (8) Recurrent right pleural effusion Status: Acute (9) Uncontrolled diabetes mellitus with complication, with long-term current use of insulin Status: Chronic (10) Poorly controlled diabetes mellitus Status: Chronic (11) Diabetic foot Status: Chronic (12) Hyperglycemia Status: Chronic (13) Diabetes Status: Chronic (14) Peripheral arterial disease with history of revascularization Status: Acute Total Time Spent on D/C: > 30 Minutes Date of Service: Dec 05, 2024 Billing Provider: LIDIA GILLETTE MD Problem Qualifiers (1) Acute exacerbation of congestive heart failure: Heart failure type: diastolic Qualified Codes: I50.33 - Acute on chronic diastolic (congestive) heart failure (2) Diabetes: Diabetes mellitus type: type 2 Diabetes mellitus termite control representative insulin use: with termite control representative use Diabetes mellitus complication status: with diabetic arthropathy Diabetes mellitus complication detail: with neuropathic arthropathy Qualified Codes: E11.610 - Type 2 diabetes mellitus with diabetic neuropathic arthropathy; Z79.4 - intermediate manager (current) use of insulin [facility] Dec 05, 2024 16:46
== END 2024-12-05 13:07 | disposition home or self-care (01) | DRG 181 ==
LOC: ER 07:25 → ED HOLD 10:26 → PCU 3S 13:57
PROVIDERS: ADMIT Family Medicine; ATTEND Family Medicine
PROC: 0W993ZZ Drainage of Right Pleural Cavity, Percutaneous Approach (ICD-10-PCS; principal; 2024-11-30)
PROC: B32T1ZZ Computerized Tomography (CT Scan) of Left Pulmonary Artery using Low Osmolar Contrast (ICD-10-PCS; 2024-11-30)
PROC: B3201ZZ Computerized Tomography (CT Scan) of Thoracic Aorta using Low Osmolar Contrast (ICD-10-PCS; 2024-11-30)
PROC: B32S1ZZ Computerized Tomography (CT Scan) of Right Pulmonary Artery using Low Osmolar Contrast (ICD-10-PCS; 2024-11-30)
PROC: B4201ZZ Computerized Tomography (CT Scan) of Abdominal Aorta using Low Osmolar Contrast (ICD-10-PCS; 2024-11-30)
PROC: B4241ZZ Computerized Tomography (CT Scan) of Superior Mesenteric Artery using Low Osmolar Contrast (ICD-10-PCS; 2024-11-30)
PROC: B4281ZZ Computerized Tomography (CT Scan) of Bilateral Renal Arteries using Low Osmolar Contrast (ICD-10-PCS; 2024-11-30)
PROC: B42C1ZZ Computerized Tomography (CT Scan) of Pelvic Arteries using Low Osmolar Contrast (ICD-10-PCS; 2024-11-30)
PROC: B42H1ZZ Computerized Tomography (CT Scan) of Bilateral Lower Extremity Arteries using Low Osmolar Contrast (ICD-10-PCS; 2024-11-30)
PROC: B4211ZZ Computerized Tomography (CT Scan) of Celiac Artery using Low Osmolar Contrast (ICD-10-PCS; 2024-11-30)
PROC: B42H1ZZ Computerized Tomography (CT Scan) of Bilateral Lower Extremity Arteries using Low Osmolar Contrast (ICD-10-PCS; 2024-11-30)
PROC: 047K3DZ Dilation of Right Femoral Artery with Intraluminal Device, Percutaneous Approach (ICD-10-PCS; 2024-12-01)
PROC: 047K3Z1 Dilation of Right Femoral Artery using Drug-Coated Balloon, Percutaneous Approach (ICD-10-PCS; 2024-12-01)
PROC: B41G1ZZ Fluoroscopy of Left Lower Extremity Arteries using Low Osmolar Contrast (ICD-10-PCS; 2024-12-01)
PROC: B41F1ZZ Fluoroscopy of Right Lower Extremity Arteries using Low Osmolar Contrast (ICD-10-PCS; 2024-12-01)
DX: T82.856A Stenosis of peripheral vascular stent, initial encounter (principal); J96.01 Acute respiratory failure with hypoxia; I50.33 Acute on chronic diastolic (congestive) heart failure; I16.1 Hypertensive emergency; I11.0 Hypertensive heart disease with heart failure; I48.20 Chronic atrial fibrillation, unspecified; G35.D Multiple sclerosis, unspecified; I69.351 Hemiplegia and hemiparesis following cerebral infarction affecting right dominant side; E11.51 Type 2 diabetes mellitus with diabetic peripheral angiopathy without gangrene; I25.10 Atherosclerotic heart disease of native coronary artery without angina pectoris; J43.9 Emphysema, unspecified; Y83.8 Other surgical procedures as the cause of abnormal reaction of the patient, or of later complication, without mention of misadventure at the time of the procedure; M79.7 Fibromyalgia; F17.210 Nicotine dependence, cigarettes, uncomplicated; Z88.0 Allergy status to penicillin; Z79.01 Long term (current) use of anticoagulants; Z79.899 Other long term (current) drug therapy; Z79.4 Long term (current) use of insulin; Z79.02 Long term (current) use of antithrombotics/antiplatelets; I25.2 Old myocardial infarction; Z59.00 Homelessness unspecified; Y92.89 Other specified places as the place of occurrence of the external cause
CPT/HCPCS: 32555; 36247; 36415; 36600; 37226; 71045; 71275; 73706; 80048; 80053; 80061; 80076; 80305; 81001; 82803; 82945; 82948; 83036; 83605; 83615; 83880; 83986; 84100; 84155; 84157; 84439; 84443; 84484; 85018; 85025; 85610; 85730; 87070; 87075; 87081; 87088; 87102; 87324; 87449; 89051; 93005; 93308; 93925; 93971; 94640; 94760; 97161; 97530; 99152; 99153; 99285; A4615; A6250; A6258; C1725; C1729; C1758; C1760; C1769; C1876; C1894; C2623; G0378; J0360; J1171; J1644; J1815; J1938; J2003; J2250; J2919; J3010; J3490; J7040; J7070; Q9967

== ENCOUNTER 2024-12-13 03:34 | Inpatient (IN) | payer MEDICAID ==
[~2024-12-13] VITALS: Ht 157.5 cm; Wt 68.0 kg
[~2024-12-13 03:34] MED LIST changes: -AMLO-708 PO; +EMPA10TA PO; +FURO-150 PO; -INSU100I57 SQ; +LISI10TA27 PO; -LISI5TAB22 PO; +PANT40TA54 PO; -UNABLE TO OBTAIN; -VANC25SO PO
--- NOTE | 2024-12-13 03:55 | Physician Documentation ---
History of Present Illness ~ Chief Complaint: Chest Pain Stated Complaint: CHEST PAIN Time Seen by MD: 03:35 Primary Medical Doctor: DAVID LONGORIA Patient presents to the emergency room with central chest pain. She states she was admitted here recently with stent placement however I can not find any of this documentation. She was admitted here about two weeks ago where angiography was done for her lower extremities but no stent was placed. She does state that has since discharge she has been noncompliant with her medications as she states that we stole her medications and that pharmacy will not fill it because it is too close to the medications they already filled. Medication Reconciliation Allergies: Coded Allergies: Penicillins (Verified Allergy, Unknown, HIVES, 12/08/24) TOLERATING CEFEPIME 01/2024 Scheduled Amiodarone Hcl (Cordarone), 200 MG PO DAILY Apixaban (Eliquis), 1 TAB PO BID Atorvastatin Calcium* (Lipitor*), 1 TAB PO DAILY Budesonide/Formoterol Fumarate (Symbicort 80-4.5 Mcg Inhaler), 2 PUFFS INH Q12H Clopidogrel Bisulfate (Clopidogrel), 75 MG PO DAILY Empagliflozin (Jardiance), 10 MG PO DAILY Furosemide* (Lasix*), 1 TAB PO DAILY Insulin Glargine,Hum.rec.anlog (Basaglar Kwikpen U-100), 30 UNITS SQ QPM Lisinopril (Lisinopril), 20 MG PO DAILY Metoprolol Succinate (Metoprolol Succinate), 1 TAB PO DAILY Pantoprazole Sodium (Pantoprazole Sodium), 40 MG PO BKF Scheduled PRN Ipratropium/Albuterol Sulfate (Combivent Respimat Inhal Notus), 2 PUFFS IH Q4H PRN for SOB or wheezing Discontinued Medications Furosemide* (Lasix*), 2 TAB PO DAILY Discontinued Reason: Prescription changed Insulin Lispro (Insulin Lispro Tonny Kwikpen), 4 UNIT SQ ACHS Ivermectin (Ivermectin), 5 TAB PO ONCE Discontinued Reason: patient no longer taking Metoprolol Succinate (Metoprolol Succinate), 50 MG PO DAILY Unable to Obtain Medications (Unable to Obtain Medications), (Reported) Past Medical History Past Medical History: CVA/TIA/Stroke, Multiple Sclerosis, Congestive Heart Failure, Hypertension, Asthma, COPD, Emphysema, Constipation, Hepatitis C, Diabetes, Fibromyalgia, Cellulitis Past Surgical History: , orthopedic surgeries, tonsillectomy Patient History: FH: skin cancer Maternal Grandmother Alcohol Use: None Drug Use: none Lives In: Homeless, Other Review of Systems ROS All review of systems negative except as per HPI Physical Exam Physical Exam General: Patient is awake, alert, oriented x4. Very fidgety with pressured speech Head: Normocephalic and atraumatic. Eyes: Conjunctival normal. EOMI. PERRL. ENT: Mucous membranes moist. Neck: Supple, trachea is midline. Chest: Clear to auscultation bilaterally without rales, rhonchi, or wheezes. There is no accessory muscle use or retractions. Cardiac: Regular rate and rhythm r without murmurs, gallops, or rubs. Abd: Soft, nondistended, nontender, with normoactive bowel sounds. No guarding, rebound, or rigidity. Progress Results/Orders Results/Orders Orders - GAY CAMARGO MD Chest,Single View (12/13/24 05:10) Page Hospitalist (12/13/24 05:00) Fill Out Med Reconciliation (12/13/24 05:00) Completed Orders - GAY CAMARGO MD Cbc/Diff (12/13/24 03:39) PBNP (12/13/24 03:39) Pt Inr (12/13/24 03:39) Hs Troponin I W Calculations (12/13/24 03:39) Hs Troponin I W Calculations (12/13/24 05:39) Hs Troponin I W Calculations (12/13/24 06:39) Drug Screen, Urine (12/13/24 03:52) Midazolam 1 Mg/Ml 2ml Inj. (Versed 1 Mg/ (12/13/24 04:00) BMP (12/13/24 03:46) Nitroglycerin Sublingual Tab (Nitrostat (12/13/24 04:15) Normal Saline 1000ml (0.9% Sodium Chlori (12/13/24 04:15) Chest,Single View (12/13/24 05:10) Ua With Microscopic (12/14/24 03:50) Vital Signs 12/13/24 12/13/24 12/13/24 12/13/24 03:50 03:59 04:26 04:34 Temp 98.7 Pulse 91 95 Resp 18 16 22 18 B/P (MAP) 143/76 119/61 (80) Pulse Ox 99 98 O2 Flow Rate 2.0 2.0 12/13/24 12/13/24 12/13/24 04:45 06:45 06:46 Pulse 89 87 Resp 15 24 B/P (MAP) 168/88 (114) 159/76 (103) Pulse Ox 99 100 O2 Flow Rate 2.0 2.0 Laboratory Tests Test 12/13/24 03:46 12/13/24 06:02 12/13/24 07:17 White Blood Count 12.5 H Red Blood Count 5.11 Hemoglobin 14.3 Hematocrit 42.7 Mean Corpuscular Volume 83.6 Mean Corpuscular Hemoglobin 28.0 Mean Corpuscular Hemoglobin Concent 33.5 Red Cell Distribution Width 14.8 H Platelet Count 89 L Mean Platelet Volume 8.9 Neutrophils (%) (Auto) 76.9 H Lymphocytes (%) (Auto) 13.3 L Monocytes (%) (Auto) 6.9 Eosinophils (%) (Auto) 1.8 Basophils (%) (Auto) 1.1 H Neutrophils # (Auto) 9.6 H Lymphocytes # (Auto) 1.7 Monocytes # (Auto) 0.9 Eosinophils # (Auto) 0.2 Basophils # (Auto) 0.1 CBC Comment Prothrombin Time 10.8 INR International Normalized Ratio 1.1 Coagulation Comments Sodium Level 136 Potassium Level 3.6 Chloride Level 100 Carbon Dioxide Level 28.3 Anion Gap 8 Blood Urea Nitrogen 16 Creatinine 0.80 Estimated GFR/1.73 m2 73 BUN/Creatinine Ratio 20.0 Glucose Level 228 H Calcium Level 8.6 Troponin I High Sensitivity 73 *H 78 *H 73 *H Pro-B-Type Natriuretic Peptide 7667 H Albumin 2.2 L Chemistry Comments Troponin I High Sens Percent Delta 6 6 Troponin I Hi Sens Absolute Change 5 -5 EKG/XRAY/CT/US/VASC/MRI EKG : Additional Comment EKG interpreted by myself shows time of 0338, rate 93, sinus rhythm, left axis deviation, right bundle-branch block, nonspecific ST-T changes Medical Decision Making Additional information obtaine: old records Findings Patient presents to the emergency room with chest pain. STEMI called and field however after reviewing the EKG upon arrival STEMI was called off. She states she had a stent placed last week however upon review of her medical records that has no stent placed. Dr. Lal did perform balloon angioplasty in her iliacs but nothing to her heart. Of concern is patient's compliance. She does not know what medications she post be on, last time she took it. She believes that our hospital took away her medications which may actually be semi true as upon [facility] records she left against medical advice and probably did not have her medicines with her. She states that the pharmacy would not fill her medications. That has she has no medication in her hands demonstrates very poor insight in his complaining of chest pain I believe she would benefit from admission. Noted elevation of troponin however she does have a baseline troponin. EKG reviewed with rail splitter who does not feel she is suffering from a STEMI. Heart Score: 4 Differential Dx:Considerations: Include: angina, aortic dissection, chest wall pain, cholelithiasis, CHF, costochondritis, esophageal reflux/spasm, gastritis, herpes zoster, myocardial infarction, pericarditis, pleuritis, pancreatitis, pneumonia, pneumothorax, pulmonary embolus, other Departure Admitted to Inpatient Unit: yes, to hospitalist Impression: Primary Impression: Chest pain Additional Impression: Noncompliance with medication regimen Condition: Guarded Referrals: NO PRIMARY CARE PROVIDER (PCP) Signature Scribe Signature: No scribe Attestation: The note accurately reflects work and decisions made by me.Gay Camargo MD 12/13/24 05:06 GAY CAMARGO MD Dec 13, 2024 03:55
[2024-12-13 04:01] LABS: MEAN PLATELET VOLUME 8.9 FL (7.4-10.4); RED CELL DISTRIBUTION WIDTH 14.8 % (11.5-14.5)
[2024-12-13 04:11] LABS: INR 1.1 INR
[2024-12-13 04:22] LABS: CREATININE 0.80 MG/DL (0.40-0.90); PRO BRAIN NATRIURETIC PEPTIDE 7667 PG/ML (0-125); TOTAL CARBON DIOXIDE 28.3 MMOL/L (24-32); eCRCL 60 ML/MIN; eGFR 73 ML/MIN
[2024-12-13] MEDS: normal saline 1000ML IV soln IVB ONE (04:33)
[2024-12-13] MEDS: midazolam 1 mg/ML 2ml injection IV ONE (04:34)
--- NOTE | 2024-12-13 05:39 | RADIOLOGY REPORT ---
CHEST RADIOGRAPH Indication: sob Technique: Single frontal view of the chest was obtained Comparison: DI CHEST,SINGLE VIEW on DOS: 12/08/24 FINDINGS: Lines and Tubes: None Lungs: Patchy right basilar consolidation. Pleura: Right pleural effusion noted. No pneumothorax. Cardiomediastinal contours: Unremarkable Bones: No acute osseous abnormality. IMPRESSION: 1. Right basilar consolidation and right pleural effusion.
--- NOTE | 2024-12-13 07:19 | ELECTROCARDIOGRAPH REPORT ---
[facility] Test Date: 2024-12-13 Test Time: 03:38:01 Pat Name: RHIANNON BATES Department: EMERGENCY ROOM Room: ORTHO 4022 Gender: F Cook Soup: CARL : 1965 Requested By: DEPARTMENT EMERGENCY Order Number: [id number] Reading MD: Dr. Agustin Chung Measurements Intervals [place] Rate: 93 P: 82 NC: 184 QRS: -95 QRSD: 175 T: 84 QT: 432 QTc: 538 Interpretive Statements Sinus rhythm RBBB and LAFB Abnormal T, consider ischemia, lateral leads Electronically Signed On 12-18-2024 20:45:[address] Agustin Chung Please click the below link to view image of tracing.
[2024-12-13] MEDS ORDERED: glucagon, human recombinant 1mg kit SUBCUT PRN (07:40)
[2024-12-13] MEDS ORDERED: potassium Cl 40MEQ/1/2NS 520ml 520 ML IV PRN (07:40)
[2024-12-13] MEDS ORDERED: magnesium hydroxide 30ml (MOM) UD suspension PO PRN (07:40)
[2024-12-13] MEDS ORDERED: dextrose 50%-water 50ml dispensing syringe IV PRN ×2 (07:40)
[2024-12-13] MEDS ORDERED: albuterol 2.5 MG/3 ML nebule NEB PRN (07:40)
[2024-12-13] MEDS ORDERED: ipratropium/albuterol 3ml nebule NEB PRN (07:40)
[2024-12-13] MEDS ORDERED: magnesium sulf-water 2g/50mL 50 ML IV PRN (07:40)
[2024-12-13] MEDS ORDERED: DEXTROSE 15 GM of carb/4 tabs (each vial/BOTTLE has 4 tablets) PO PRN ×2 (07:40)
[2024-12-13] MEDS ORDERED: mag hydrox/Alum hydrox/simeth 30ml oral suspension PO PRN (07:40)
[2024-12-13] MEDS ORDERED: potassium Cl 20 mEq SR tablet PO PRN (07:40)
[2024-12-13] MEDS ORDERED: magnesium sulf-water 4G/100mL 100 ML IV PRN (07:40)
[2024-12-13] MEDS ORDERED: ondansetron/PF 4mg/2ml inj IV PRN (07:40)
[2024-12-13] MEDS: docusate sod 100mg capsule PO SCH (08:00)
[2024-12-13] MEDS: K and/or MAG REPLACEMENT MC SCH (08:00)
[2024-12-13 10:32] VITALS: PULSE 88; RESP 18; O2SAT 99
[2024-12-13] MEDS: nicotine 7mg patch - 24hr TD ONE (11:45)
[2024-12-13] MEDS: INSULIN LISPRO 100 UNIT/ML INSULN.PEN MULTI-DOSE SQ SCH (12:32)
[2024-12-13 14:00] VITALS: BP 156/56; PULSE 90; RESP 18; TEMP 97.8; O2SAT 98
[2024-12-13 16:12] VITALS: RESP 18; O2SAT 98
[2024-12-13] MEDS: hydrALAZINE 20mg/ml inj. IV PRN (17:19)
[2024-12-13] MEDS ORDERED: metoprolol tartrate 1mg/ml inj IV PRN (17:25)
[2024-12-13] MEDS ORDERED: regadenoson 0.4mg/5ml syringe IV PRN (17:25)
--- NOTE | 2024-12-13 17:34 | HISTORY AND PHYSICAL ---
History & Physical Providers to CC ~ History of Present Illness Reason for Admit\Complaint: Chest pain evaluate for mi History of Present Illness This is a 59-year-old female who presents to the ED in his being admitted for the 3rd time in November. The patient lost her medication and has been out of her medications for AFib and heart failure with preserved ejection fraction as well as blood pressure medications. On this visit to the ED the patient presents with left-sided chest pain that is started at 00:30 this morning and continued for a few hours until arriving at the ED she was given nitroglycerin sublingually and her chest pain has resolved. The patient endorses experiencing shortness of breath as well as diaphoresis with the chest pain. On arrival to the ED the patient is serum troponin was elevated at 73 increased to 78 and then downtrended to 73. The patient has been chest pain-free however I just received a page from the patient's RN that the patient is currently experiencing chest pain thus I had held off ordering Lexiscan stress test however I have ordered one for the a.m.. I am unsure if Cardiology would do procedure as the patient is very noncompliant and has not been on her Eliquis or Plavix. Allergies: Coded Allergies: Penicillins (Verified Allergy, Unknown, HIVES, 12/08/24) TOLERATING CEFEPIME 01/2024 Home Medications Home Medications Active Lasix* (Furosemide) 20 Mg Tablet 1 Tab PO DAILY 30 Days Pantoprazole Sodium 40 Mg Tablet.dr 40 Mg PO BKF 30 Days Jardiance (Empagliflozin) 10 Mg Tablet 10 Mg PO DAILY 30 Days Lisinopril 10 Mg Tablet 20 Mg PO DAILY 30 Days Basaglar Mariyapen U-100 (Insulin Glargine,Hum.rec.anlog) 100 Unit/Ml (3 Ml) Insuln.pen 30 Units SQ QPM Combivent Respimat Inhal Bock (Albuterol/Ipratropium) 20 Mcg-100 Mcg/Actuation Aer.w.adap 2 Puffs IH Q4H PRN Metoprolol Succinate 25 Mg Tab.sr.24h 1 Tab PO DAILY 30 Days Clopidogrel (Clopidogrel Bisulfate) 75 Mg Tablet 75 Mg PO DAILY Do not stop medication unless instructed by prescriber. Symbicort 80-4.5 Mcg Inhaler (Budesonide/Formoterol Fumarate) 80 Mcg-4.5 Mcg/Actuation Hfa.aer.ad 2 Puffs INH Q12H 30 Days Lipitor* (Atorvastatin Calcium) 40 Mg Tablet 1 Tab PO DAILY 30 Days Cordarone (Amiodarone HCl) 200 Mg Tablet 200 Mg PO DAILY 30 Days Eliquis (Apixaban) 5 Mg Tablet 1 Tab PO BID 30 Days Past Medical History Past Medical History Atrial fibrillation not on anticoagulation C diff colitis COPD Coronary artery disease status post to PCI TIA Heart failure with preserved ejection fraction Type 2 diabetes mellitus Past Surgical History Surgical History Comment Metallic plates in the left and right leg post accident Coronary artery disease status post two PCI Family History Family History: FH: skin cancer Maternal Grandmother Past Social History Social History Comment The patient states she currently smokes two cigarettes a day, has been sober from drinking alcohol for close to 30 years, states the last time she use methamphetamines was a month ago however the patient has been positive for methamphetamines December 01 and also on this encounter the patient is denies using any other illicit drugs however his also positive for cannabinoids. Full code status ROS ROS Except for positives in the HPI the rest of the 14 point review systems is negative Exam Vitals: Vital Signs Date Time Temp Pulse Resp B/P (MAP) Pulse Ox O2 Delivery O2 Flow Rate FiO2 12/13/24 16:12 18 98 Nasal Cannula 2.0 12/13/24 14:36 89 12/13/24 13:07 98.7 144/69 (94) 28 General: Gen. No acute distress alert and oriented 4 Lungs clear to ascultation bilaterally, no wheezes rales or rhonchi appreciated Heart irregular rhythm no murmurs rubs or clicks noted Abdomen soft nontender bowel sounds are normoactive Lower extremities no clubbing cyanosis, nor edema appreciated bilaterally Diagnostic Data Last Recorded Lab Results: 12/13/24 0346 12/13/24 0346 Diagnostic Data: Laboratory Tests Test 12/13/24 03:46 Prothrombin Time 10.8 SECONDS (9.0-12.0) INR International Normalized Ratio 1.1 INR Coagulation Comments Advance Care Planning Advanced Care plannin - 30 Minutes Problems: (1) Acute angina Status: Acute Additional Plan # acute chest pain evaluate for mi Nitroglycerin patch Lexiscan stress test Metoprolol succinate Atorvastatin 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 The patient has decided on full code status Date of Service: Dec 13, 2024 Billing Provider: TORIN REEDER DO Common Visit Codes: [id number] INP/OBS CARE (HIGH) Secondary Visit Codes: 63365-[id number] CARE PLAN 30 MINUTES TORIN REEDER DO Dec 13, 2024 17:34
[2024-12-13 18:30] VITALS: BP 171/62; PULSE 94; RESP 20; TEMP 98.3; O2SAT 99
[2024-12-13] MEDS: insulin glargine (Lantus) pen - multi-dose SQ SCH (20:03)
[2024-12-13 22:00] VITALS: BP 106/41; PULSE 95; RESP 18; TEMP 97.9; O2SAT 98
[2024-12-13 23:31] VITALS: PULSE 85; RESP 18; O2SAT 99
[2024-12-14] VITALS (18 sets, daily range): BP systolic 65–153; BP diastolic 42–88; PULSE 63–93; RESP 15–18; TEMP 96.7–98.6; O2SAT 97–100
[2024-12-14 04:23] LABS: LEUKOCYTE ESTERASE ,URINE NEGATIVE (Neg); NITRITES, URINE NEGATIVE (Neg); OCCULT BLOOD,URINE TRACE-INTACT (Neg)
[2024-12-14 04:36] LABS: URINE AMPHETAMINE SCREEN POSITIVE (Neg); URINE BARBITUATE SCREEN NEGATIVE (Neg); URINE BENZODIAZEPINES SCREEN NEGATIVE (Neg); URINE CANNABINOID SCREEN NEGATIVE (Neg); URINE COCAINE SCREEN NEGATIVE (Neg); URINE METHADONE SCREEN NEGATIVE (Neg); URINE OPIATE SCREEN NEGATIVE (Neg); URINE PHENCYCLIDINE SCREEN NEGATIVE (Neg)
[2024-12-14 04:38] LABS: UA COLLECTION TYPE CLN CATCH MIDSTREAM
[2024-12-14 04:40] LABS: MUCUS STRANDS FEW /LPF (Neg); SQUAMOUS EPITHELIAL CELL,UR FEW /LPF (FEW)
[2024-12-14 07:01] LABS: MEAN PLATELET VOLUME 10.1 FL (7.4-10.4); RED CELL DISTRIBUTION WIDTH 14.5 % (11.5-14.5)
[2024-12-14] MEDS: pantoprazole 40mg Tablet.DR PO SCH (07:30)
[2024-12-14 07:33] LABS: CREATININE 0.76 MG/DL (0.40-0.90); TOTAL CARBON DIOXIDE 25.7 MMOL/L (24-32); eCRCL 63 ML/MIN; eGFR 78 ML/MIN
[2024-12-14] MEDS: metoprolol succinate 25mg (24-HOUR) SR. Tablet PO SCH (08:00)
[2024-12-14] MEDS: nicotine 7mg patch - 24hr TD SCH (08:00)
[2024-12-14] MEDS: EMPAGLIFLOZIN 10 MG TABLET PO SCH (08:00)
[2024-12-14] MEDS ORDERED: metoprolol tartrate 1mg/ml inj IV PRN (10:35)
[2024-12-14] MEDS ORDERED: aminophylline 250mg/10ml inj. IV PRN (10:35)
[2024-12-14] MEDS ORDERED: regadenoson 0.4mg/5ml syringe IV PRN (10:35)
[2024-12-14] MEDS: aminophylline 250mg/10ml inj. IV PRN (12:07)
--- NOTE | 2024-12-14 13:16 | RADIOLOGY REPORT ---
Procedure: AR NM ANMOL SCAN, ANGIO PICC LINE INSERTION, ANGIO LINE PLACEMENT(PICC NURSE), CT CTA LOWER EXTREMITY LFT, CATH HEART CATH W/WO STENT, ANGIO LINE PLACEMENT(PICC NURSE) Exam Date: 12/14/2024 11:08 AM Reason for study/Clinical History: chest pain Comparison Study: NM NM ANMOL SCAN on DOS: 04/26/23 Myocardial Perfusion Study with SPECT Technique: The patient received an intravenous injection of 7.3 mCi of technetium-99m SESTAMIBI while at rest. After a short delay, SPECT tomographic images of the heart were obtained. The patient then went to the stress lab where they received an intravenous Lexiscan utilizing standard protocol. 30 mCi of technetium-99m SESTAMIBI was injected intravenously immediately after the start of the infusion. Gated SPECT tomographic images of the heart were acquired and processed. Findings: Rotating planar images show no significant attenuation artifact. The left ventricular size is within normal limits. Stress tomographic images demonstrate normal perfusion. Resting tomographic images demonstrate a similar pattern. Gated portion of the study shows normal wall motion and myocardial thickening. The left ventricular ejection fraction is 33%. (normal greater than 50%) Impression: Normal left ventricular size, wall motion, and function, without evidence of infarction or of myocardium at ischemic risk. The left ventricular ejection fraction is 33%.
[2024-12-14] MEDS ORDERED: iohexol 350 MG/ML 50ML vial IV ONE (15:01)
[2024-12-14] MEDS: potassium Cl 20 mEq SR tablet PO PRN (17:59)
--- NOTE | 2024-12-14 18:27 | PROGRESS NOTE- Residence ---
Progress Note - Resident Providers to CC Resident Creating Document: YOSSICEENicoALAYNA PELAEZ ~ Antibiotic Timeout Antibiotic Ordered?: No Subjective This is a 59-year-old female with a significant medical history of atrial fibrillation, heart failure with preserved ejection fraction, hypertension, hyperlipidemia, peripheral arterial disease status post right superficial femoral artery (SFA) stenting, and type 2 diabetes mellitus (A1c 9.5). She presents to the Emergency Department with recurrent left-sided chest pain. This is the patients third hospital admission in November. She reports that she lost all her medications and has been off her prescribed Eliquis, Plavix, and antihypertensive therapy for approximately three weeks. The current episode began around 00:30 AM, described as left-sided chest pressure associated with shortness of breath and diaphoresis, lasting several hours until arrival at the ED. The pain resolved after administration of sublingual nitroglycerin. Initial troponin was 73 ng/L, which sandra to 78 and then downtrended back to 73. The patient was chest painfree initially but later developed recurrent discomfort while on the floor. No new ischemic changes were seen on EKG. BNP was elevated at 7667 (previously 8928). Urine toxicology was positive for methamphetamine. WBC improved from 12.5 to 11.7, and creatinine remained stable at 0.79. She underwent a Lexiscan stress test last admission showing preserved ejection fraction (55%) without valvular disease. A repeat stress test was ordered but held pending Cardiology review due to recurrent chest pain. 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 During her prior admission on 11/30, she underwent right lower extremity angiography with successful balloon angioplasty, drug-eluting balloon angioplasty, and placement of a new overlapping stent in the proximal to mid right superficial femoral artery, which overlapped her prior distal SFA stent. Post-procedure angiography demonstrated wide vessel patency with no significant residual stenosis. Last methamphetamine use: 1 week ago Objective Vital Signs Date Time Temp Pulse Resp B/P (MAP) Pulse Ox O2 Delivery O2 Flow Rate FiO2 12/14/24 12:00 90 16 142/55 100 12/14/24 09:58 Nasal Cannula 2.0 12/14/24 09:52 28 12/14/24 06:00 96.7 Result Diagram: 12/14/24 0544 12/14/24 0544 Awake , alert, and oriented x4, resting comfortably in the bed, in no acute distress HEENT: Atraumatic, normocephalic, EOMI, anicteric sclera ; pink conjunctiva Neck: Trachea midline. Supple, full range of motion, no JVD Cardiac: Irregular rhythm, irregular rate with systolic murmurs all over the precordium. Respiratory: Equal breath sounds bilaterally, no tachypnea, no wheezing ,rub or rales, Chest wall is symmetric and without deformity. Gastrointestinal: Abdomen symmetric, non-distended, soft, non-tender, normal bowel sounds x4 quadrant, normoactive, no hepatosplenomegaly Musculoskeletal: Very feeble pulses on the right lower extremity, right lower extremity has scarring and skin changes over the foot Neurological: Mental status exam: alert and consciousness, orientation, memory, speech - Cranial nerve test: Cranial nerves 2-12 intact - Motor system: Nutrition, Tone 3+, Power 5/5, no involuntary movements - Sensory system: Intact - Reflex testing: Biceps, triceps and knee reflexes 2+ - Cerebellar: Normal Skin: Warm and dry Coagulation Studies Laboratory Tests Test 12/13/24 03:46 Prothrombin Time 10.8 SECONDS (9.0-12.0) INR International Normalized Ratio 1.1 INR Coagulation Comments Advance Care Planning Advanced Care plannin - 30 Minutes Plan Plan 1. Chest Pain Demand Ischemia (Methamphetamine-Induced) Troponins mildly elevated (73 78 73) without significant EKG changes Possible etiologies include medication noncompliance, meth use, and underlying coronary or microvascular disease Plan: Continue telemetry monitoring for arrhythmias or ischemic changes Serial troponins and repeat EKG for any recurrent chest pain Lexiscan stress test was negative Started aspirin 81 mg daily. Resumed Plavix and Eliquis Counselled patient on strict abstinence from methamphetamine and adherence to cardiac medications 2. Heart Failure with Preserved Ejection Fraction (HFpEF), chronic Last echo EF 55%, no valvular abnormalities. BNP elevated but comparable to prior levels Likely exacerbated by medication nonadherence and stimulant use Plan: Monitor volume status, daily weights, and intake/output Resume home diuretics if blood pressure allows Restrict sodium and fluids Reinforced medication adherence and education on HF management 3. Atrial Fibrillation Noncompliance with Anticoagulation ChadVasc score 3 Currently rate controlled Has been off Eliquis for three weeks Plan: Resumed anticoagulation Continue telemetry monitoring for rhythm stability Emphasized importance of compliance to reduce stroke risk Continue home medications amiodarone 200 mg p.o. daily 4. Peripheral Arterial Disease Status Post New Right SFA Stent (11/30/24) Underwent balloon angioplasty, drug-eluting balloon angioplasty, and new overlapping stent placement in proximalmid right SFA with patent distal flow. Plan: Started dual antiplatelet therapy (Aspirin + Plavix) Encourage ambulation and smoking/drug cessation Outpatient vascular follow-up after discharge CTA, lower extremity with the abdominal runoff ordered, we will follow up 5. Hypertension and Hyperlipidemia Off antihpertensive and statin therapy Panel on 11/30 shows triglycerides 72, cholesterol 243, LDL 157 Plan: Resumed antihypertensive therapy as tolerated: Lisinopril 10 mg p.o. daily and metoprolol succinate 25 mg p.o. daily Continue atorvastatin 40 mg nightly Monitor blood pressures 6. Diabetes Mellitus Type 2 Poorly Controlled (A1c 9.5) Glucose 171 mg/dL on admission Plan: Continue sliding scale insulin in hospital Diabetic diet and lifestyle modifications Resume home regimen at discharge 7. Methamphetamine Use Disorder Urine tox positive; likely contributing to recurrent admissions and chest pain. Plan: Provide substance use counseling and social work consult Discuss inpatient or outpatient rehabilitation resources 8. Medication Noncompliance Recurrent hospitalizations due to loss of medications and poor adherence Plan: Case management an psychosocial rehabilitation counselor consulted 9. COPD: Stable DuoNeb q.4h p.r.n. Code Status: I spent a total of 17 minutes on reviewing various resuscitative measures with the patient at the time of admission. The patient has decided on a full code status. DVT Prophylaxis: Cherry Velez MD Internal Medicine Resident, PGY-2 Date of Service: Dec 14, 2024 Billing Provider: LIDIA GILLETTE MD Common Visit Codes: [id number] INP/OBS CARE(HIGH) BENIGNO VELEZ, RES Dec 14, 2024 18:27 LIDIA GILLETTE MD Dec 17, 2024 07:31
--- NOTE | 2024-12-14 19:50 | RADIOLOGY REPORT ---
CTA ABDOMINAL AORTA WITH BILATERAL LOWER EXTREMITY RUNOFF WITH CONTRAST INDICATION: Right Lower extrremity pain. Peripheral arterial disease. COMPARISON: CT CTA LOWER EXTREMITY LFT on DOS: 11/30/24, CT CTA LOWER EXTREMITY RT on DOS: 11/30/24, CT CTA ABDOMEN LOWER EXTR RUNOFF on DOS: 05/05/23, CT CT LOWER EXTREMITY on DOS: 05/03/23, ANGIO ANGIO LOWER EXTREMITY (A) on DOS: 04/11/23 TECHNIQUE: Axial CT images of the abdomen and bilateral lower extremities are obtained at 1 mm collimation in the early arterial phase after intravenous contrast administration. Coronal maximum intensity projection (MIP) images are provided. 3-D images of the abdominal aorta and bilateral lower extremity arteries were constructed on an independent workstation. Radiation optimization: All CT scans at this facility use at least one of these dose optimization techniques: Automated exposure control mA and/or kV adjustment per patient size (includes targeted exams where dose is matched to clinical indication) or iterative reconstruction. CONTRAST: 150 mL omnipaque 350 RADIATION DOSE: CTDI: 10 mGy DLP: 1372 mGy-cm FINDINGS: AORTA: There is no abdominal aortic aneurysm or dissection. There is extensive atherosclerosis. There is no significant narrowing of the abdominal aorta. The celiac, SMA, CRISTOBAL, and renal arteries are widely patent. There is 1 right renal artery. There is 1 left renal artery. RIGHT LOWER EXTREMITY RUN-OFF: Common iliac: Patent without hemodynamically significant stenosis. External iliac: Patent without hemodynamically significant stenosis. Internal iliac: Patent without hemodynamically significant stenosis. MACHINE OPERATOR HELPER: There is 50% focal narrowing in the distal portion. SFA: There is multifocal severe stenosis in the upper portion. There is a series of metallic stents in the midportion of the artery. There is moderate in stent stenosis over long segments of the stent. There is focal severe stenosis near the distal end of the stents in the lower thigh. Profunda Femoris: Patent without hemodynamically significant stenosis. Popliteal: Patent without hemodynamically significant stenosis. No aneurysm or abnormal medial deviation is noted. Anterior Tibial: There is approximately 50% focal stenosis shortly after the origin. Tibioperoneal Trunk: There is critical short-segment stenosis. Peroneal: Patent without hemodynamically significant stenosis. Posterior Tibial: There is critical focal stenosis near the origin. Dorsalis Pedis: Patent without hemodynamically significant stenosis. The common and lateral plantar arteries are patent. LEFT LOWER EXTREMITY RUN-OFF: Common iliac: Patent without hemodynamically significant stenosis. External iliac: Patent without hemodynamically significant stenosis. Internal iliac: Patent without hemodynamically significant stenosis. MACHINE OPERATOR HELPER: Patent without hemodynamically significant stenosis. SFA: There is 90% focal stenosis in the upper thigh. There are numerous critical stenoses in the mid thigh and distal thigh. Profunda Femoris: Patent without hemodynamically significant stenosis. Popliteal: Patent without hemodynamically significant stenosis. No aneurysm or abnormal medial deviation is noted. Anterior Tibial: Patent without hemodynamically significant stenosis. Tibioperoneal Trunk: Heavily calcified and not well evaluated. Peroneal: Patent without hemodynamically significant stenosis. Posterior Tibial: Occluded in mid calf with distal reconstitution. Dorsalis Pedis: Patent without hemodynamically significant stenosis. The common and lateral plantar arteries are patent. ADDITIONAL FINDINGS: There is at least moderate right pleural effusion. The liver and spleen are within normal limits for size. There are numerous tiny calcified gallstones within the gallbladder. The pancreas is within normal limits. The adrenal glands are normal. The kidneys enhance symmetrically. No solid renal mass is identified. There is no hydronephrosis of either kidney. No pathologic lymphadenopathy is identified by size criteria. There are scattered subcentimeter lymph nodes in the retroperitoneum. The urinary bladder appears thick-walled although it is not well distended. The uterus and ovaries are within normal limits for age. There is no pathologic distention of the small bowel. The colonic stool burden is small. The appendix is normal. No acute osseous abnormality is identified. There is an intramedullary nail within the left tibia. There is plate and screw fixation of the right femur. IMPRESSION: Multiple severe stenoses in the right SFA in the upper thigh. Moderate long segment in stent stenoses in the right thigh with severe focal stenosis near the end of the stent in the lower thigh. Critical focal and short-segment stenoses in the right TP trunk and posterior tibial artery. Several critical focal stenoses in the left SFA throughout its length. Occluded left posterior tibial artery in mid calf with distal reconstitution. At least moderate-sized right pleural effusion.
[2024-12-15 08:00] VITALS: RESP 14; O2SAT 99
[2024-12-15 10:00] VITALS: BP 127/82; PULSE 83; RESP 16; TEMP 98.4; O2SAT 97
[2024-12-15 11:27] LABS: MEAN PLATELET VOLUME 8.7 FL (7.4-10.4); RED CELL DISTRIBUTION WIDTH 14.4 % (11.5-14.5)
[2024-12-15 11:35] LABS: CREATININE 1.06 MG/DL (0.40-0.90); TOTAL CARBON DIOXIDE 30.3 MMOL/L (24-32); eCRCL 45 ML/MIN; eGFR 53 ML/MIN
--- NOTE | 2024-12-15 14:04 | PROGRESS NOTE ---
Progress Note ID Providers to CC ~ Progress Note Progress Note: pt seen and examined-cta reviewed-awaiting SHIRA Sharma MD Dec 15, 2024 14:04
[2024-12-15 16:11] LABS: MEAN PLATELET VOLUME 9.1 FL (7.4-10.4); RED CELL DISTRIBUTION WIDTH 14.2 % (11.5-14.5)
--- NOTE | 2024-12-15 16:14 | PROGRESS NOTE- Residence ---
Progress Note - Resident Providers to CC Resident Creating Document: YOSSICEENicoBENIGNO, RES ~ Antibiotic Timeout Antibiotic Ordered?: No Subjective Patient was seen and examined at bedside, she denied labs today. She wanted to leave AMA, but counseled her regarding the need for further evaluation of her recent vascular scan. She agreed to stay and get lab done. She also complained of resting pain of right lower extremity 9/10 in intensity. No motor or sensory deficits noted. This is a 59-year-old female with a significant medical history of atrial fibrillation, heart failure with preserved ejection fraction, hypertension, hyperlipidemia, peripheral arterial disease status post right superficial femoral artery (SFA) stenting, and type 2 diabetes mellitus (A1c 9.5). She presents to the Emergency Department with recurrent left-sided chest pain. This is the patients third hospital admission in November. She reports that she lost all her medications and has been off her prescribed Eliquis, Plavix, and antihypertensive therapy for approximately three weeks. The current episode began around 00:30 AM, described as left-sided chest pressure associated with shortness of breath and diaphoresis, lasting several hours until arrival at the ED. The pain resolved after administration of sublingual nitroglycerin. Initial troponin was 73 ng/L, which sandra to 78 and then downtrended back to 73. The patient was chest painfree initially but later developed recurrent discomfort while on the floor. No new ischemic changes were seen on EKG. BNP was elevated at 7667 (previously 8928). Urine toxicology was positive for methamphetamine. WBC improved from 12.5 to 11.7, and creatinine remained stable at 0.79. She underwent a Lexiscan stress test last admission showing preserved ejection fraction (55%) without valvular disease. A repeat stress test was ordered but held pending Cardiology review due to recurrent chest pain. 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 During her prior admission on 11/30, she underwent right lower extremity angiography with successful balloon angioplasty, drug-eluting balloon angioplasty, and placement of a new overlapping stent in the proximal to mid right superficial femoral artery, which overlapped her prior distal SFA stent. Post-procedure angiography demonstrated wide vessel patency with no significant residual stenosis. Last methamphetamine use: 1 week ago Objective Vital Signs Date Time Temp Pulse Resp B/P (MAP) Pulse Ox O2 Delivery O2 Flow Rate FiO2 12/15/24 12:31 14 12/15/24 08:40 82 12/14/24 22:00 98.3 149/63 (91) 98 Room Air 12/14/24 20:07 0 21 Result Diagram: 12/15/24 1115 12/15/24 1115 Awake , alert, and oriented x4, resting comfortably in the bed, in no acute distress HEENT: Atraumatic, normocephalic, EOMI, anicteric sclera ; pink conjunctiva Neck: Trachea midline. Supple, full range of motion, no JVD Cardiac: Irregular rhythm, irregular rate with systolic murmurs all over the precordium. Respiratory: Equal breath sounds bilaterally, no tachypnea, no wheezing ,rub or rales, Chest wall is symmetric and without deformity. Gastrointestinal: Abdomen symmetric, non-distended, soft, non-tender, normal bowel sounds x4 quadrant, normoactive, no hepatosplenomegaly Musculoskeletal: Very feeble pulses on the right lower extremity, right lower extremity has scarring and skin changes over the foot, no motor/ sensory deficits Neurological: Mental status exam: alert and consciousness, orientation, memory, speech - Cranial nerve test: Cranial nerves 2-12 intact - Motor system: Nutrition, Tone 3+, Power 5/5, no involuntary movements - Sensory system: Intact - Reflex testing: Biceps, triceps and knee reflexes 2+ - Cerebellar: Normal Skin: Warm and dry Coagulation Studies Laboratory Tests Test 12/13/24 03:46 Prothrombin Time 10.8 SECONDS (9.0-12.0) INR International Normalized Ratio 1.1 INR Coagulation Comments Advance Care Planning Advanced Care plannin - 30 Minutes Plan Plan 1. Chest Pain Demand Ischemia (Methamphetamine-Induced) Troponins mildly elevated (73 78 73) without significant EKG changes Possible etiologies include medication noncompliance, meth use, and underlying coronary or microvascular disease Plan: Continue telemetry monitoring for arrhythmias or ischemic changes Serial troponins and repeat EKG for any recurrent chest pain Lexiscan stress test was negative Started aspirin 81 mg daily. Resumed Plavix and Eliquis Counselled patient on strict abstinence from methamphetamine and adherence to cardiac medications 2. Heart Failure with Preserved Ejection Fraction (HFpEF), chronic Last echo EF 55%, no valvular abnormalities. BNP elevated but comparable to prior levels Likely exacerbated by medication nonadherence and stimulant use Plan: Monitor volume status, daily weights, and intake/output Resumed home medication furosemide 20 mg p.o. daily Restrict sodium and fluids Reinforced medication adherence and education on HF management 3. Atrial Fibrillation Noncompliance with Anticoagulation ChadVasc score 3 Currently rate controlled Has been off Eliquis for three weeks Plan: Resumed anticoagulation Continue telemetry monitoring for rhythm stability Emphasized importance of compliance to reduce stroke risk Continue home medications amiodarone 200 mg p.o. daily 4. Peripheral Arterial Disease Status Post New Right SFA Stent (11/30/24) Underwent balloon angioplasty, drug-eluting balloon angioplasty, and new overlapping stent placement in proximalmid right SFA with patent distal flow. Plan: Started dual antiplatelet therapy (Aspirin + Plavix) Encourage ambulation and smoking/drug cessation Outpatient vascular follow-up after discharge CTA, lower extremity with the abdominal runoff ordered, we will follow up 12/15/2024: CTA shows Multiple severe stenoses in the right SFA in the upper thigh. Moderate long segment in stent stenoses in the right thigh with severe focal stenosis near the end of the stent in the lower thigh. Critical focal and short-segment stenoses in the right TP trunk and posterior tibial artery. Several critical focal stenoses in the left SFA throughout its length. Occluded left posterior tibial artery in mid calf with distal reconstitution. Consulted Dr. MARTINEZ, recommended that the changes are chronic and patient can be discharged with adequate counseling about compliance Consulted Dr. Das, vascular surgeon, recommended MODE Ordered MODE, awaiting further management recommendations 5. Hypertension and Hyperlipidemia Off antihpertensive and statin therapy Panel on 11/30 shows triglycerides 72, cholesterol 243, LDL 157 Plan: Resumed antihypertensive therapy as tolerated: Lisinopril 10 mg p.o. daily and metoprolol succinate 25 mg p.o. daily Continue atorvastatin 40 mg nightly Monitor blood pressures 6. Diabetes Mellitus Type 2 Poorly Controlled (A1c 9.5) Glucose 171 mg/dL on admission Plan: Continue sliding scale insulin in hospital Diabetic diet and lifestyle modifications Resume home regimen at discharge 12/15/2024: Had sugar levels were between 225-230 Hence increased dose of Lantus to 15 units with lispro 3 units 7. Methamphetamine Use Disorder Urine tox positive; likely contributing to recurrent admissions and chest pain. Plan: Provide substance use counseling and social work consult Discuss inpatient or outpatient rehabilitation resources 8. Medication Noncompliance Recurrent hospitalizations due to loss of medications and poor adherence Plan: Case management an social science professor consulted 9. COPD: Stable DuoNeb q.4h p.r.n. 10. ARMANDO: Vasomotor nephropathy Creatinine 1.06, slightly up from yesterday Patient received contrast for CTA lower extremity yesterday Ordered 1 L of IV bolus Please monitor BMP tomorrow Code Status: I spent a total of 17 minutes on reviewing various resuscitative measures with the patient at the time of admission. The patient has decided on a full code status. DVT Prophylaxis: Cherry Rosario MD Internal Medicine Resident, PGY-2 Date of Service: Dec 15, 2024 Billing Provider: LIDIA GILLETTE MD Common Visit Codes: 10630-SVLJDNCCOF INP/OBS CARE(HIGH) BENIGNO ROSARIO, RES Dec 15, 2024 16:14 LIDIA GILLETTE MD Dec 17, 2024 07:32
[2024-12-15 16:35] LABS: CREATININE 0.98 MG/DL (0.40-0.90); TOTAL CARBON DIOXIDE 26.8 MMOL/L (24-32); eCRCL 49 ML/MIN; eGFR 58 ML/MIN
--- NOTE | 2024-12-15 17:33 | VASCULAR REPORT ---
[facility] Vascular Department [facility] [address] [place] [address] [email or web address] [facility] EMMA REYNA Name : RHIANNON BATES Date : 12/15/2024 Accession# : [id number] Birthdate : 1965 Sex : F Accounting Bookkeeper : Peg Leblanc RDMS/RVT Age : [address]Y [address] : BENIGNO ROSARIO, Preliminary Report The above named patient was referred for a PHYSIOLOGIC ARTERIAL DOPPLER EVALUATION. The evaluation includes blood pressures, ankle brachial indices (MODE), and segmental Doppler waveform analysis at rest and post exercise when applicable. Toe brachial indices (TBI) taken when necessary. Patient IN-PATIENT Egaation: Ankle to Brachial Index Indeations PAD Pressures/Indices Right MODE Lef AB Brachial 96mmHg Brachial Ankle(PT) NCmmHg Noncompressibl Ankle(PT) NCmmHg Noncompressibl e e Ankle(DP) 60mmHg 0.63 Ankle(DP) NCmmHg Noncompressibl e Impression: Right MODE at rest 0.63 based on JASMYN indicating moderate disease, Noncompressible based on MOBILITY DEVELOPER Left MODE at rest noncompressible
[2024-12-15] MEDS: normal saline 1000ml 1,000 ML IV ONE (17:55)
[2024-12-15 18:30] VITALS: BP 93/51; PULSE 74; RESP 16; TEMP 98.3; O2SAT 100
[2024-12-15] MEDS: INSULIN LISPRO 100 UNIT/ML INSULN.PEN MULTI-DOSE SQ SCH (18:50)
[2024-12-15] MEDS: insulin glargine (Lantus) pen - multi-dose SQ SCH (20:27)
[2024-12-15 22:00] VITALS: BP 116/59; PULSE 78; RESP 16; TEMP 98.6; O2SAT 99
[2024-12-16 06:00] VITALS: BP 154/68; PULSE 84; RESP 14; TEMP 98.6; O2SAT 96
[2024-12-16 08:00] VITALS: RESP 14; O2SAT 96
[2024-12-16 08:50] VITALS: RESP 14; O2SAT 96
[2024-12-16] MEDS: INSULIN LISPRO 100 UNIT/ML INSULN.PEN MULTI-DOSE SQ SCH (09:02)
[2024-12-16 10:00] VITALS: BP 147/64; PULSE 90; RESP 22; TEMP 97.8; O2SAT 98
[2024-12-16] MEDS ORDERED: CLOP-32 PO (11:28)
--- NOTE | 2024-12-16 11:37 | DISCHARGE SUMMARY-Residence ---
Discharge Summary Providers to CC Resident Creating Document: ROCIO ROSARIO RES ~ Discharge Summary Admission Diagnosis: Chest pain eval for [place] Hospital Course DATE OF ADMISSION: 12/13/2024 DATE OF DISCHARGE: 12/16/24 Discharge Diagnosis\Comment: # Chest Pain Demand Ischemia (Methamphetamine-Induced) # Heart Failure with Preserved Ejection Fraction (HFpEF), chronic # Atrial Fibrillation Noncompliance with Anticoagulation, ChadVasc score 3 # Peripheral Arterial Disease Status Post New Right SFA Stent (11/30/24). Underwent balloon angioplasty, drug-eluting balloon angioplasty, and new overlapping stent placement in proximalmid right SFA with patent distal flow. # Hypertension # Hyperlipidemia # Diabetes Mellitus Type 2 Poorly Controlled (A1c 9.5) # substance use disorder-Methamphetamine Use Disorder # Medication Noncompliance # COPD: Stable # ARMANDO: Vasomotor nephropathy- improved Operations\Procedures: NM Cardiac stress test on 12/14/2024 Consultants: Dr Bliss, Surgery Dr Lal, Cardiology Complications: None Condition on DC: Stable New Medications: Clopidogrel Bisulfate (Plavix) 75 Mg Tablet 1 TAB PO DAILY for 30 Days, #30 TAB 0 Refills Continued Medications: Amiodarone Hcl (Cordarone) 200 Mg Tablet 200 MG PO DAILY for 30 Days, #30 TAB Apixaban (Eliquis) 5 Mg Tablet 1 TAB PO BID for 30 Days, #60 TAB 0 Refills Atorvastatin Calcium* (Lipitor*) 40 Mg Tablet 1 TAB PO DAILY for 30 Days, #30 TAB Budesonide/Formoterol Fumarate (Symbicort 80-4.5 Mcg Inhaler) 80 Mcg-4.5 Mcg/Actuation Hfa.aer.ad 2 PUFFS INH Q12H for 30 Days, #1 GM 0 Refills Clopidogrel Bisulfate (Clopidogrel) 75 Mg Tablet 75 MG PO DAILY, #30 TAB Do not stop medication unless instructed by prescriber. Empagliflozin (Jardiance) 10 Mg Tablet 10 MG PO DAILY for 30 Days, #30 TAB Furosemide* (Lasix*) 20 Mg Tablet 1 TAB PO DAILY for 30 Days, #30 TAB Insulin Glargine,Hum.rec.anlog (Basaglar Kwikpen U-100) 100 Unit/Ml (3 Ml) Insuln.pen 30 UNITS SQ QPM, #9 ML Ipratropium/Albuterol Sulfate (Combivent Respimat Inhal [place]) 20 Mcg-100 Mcg/Actuation Aer.w.adap 2 PUFFS IH Q4H PRN for SOB or wheezing, #1 INH 1 Refill Lisinopril (Lisinopril) 10 Mg Tablet 20 MG PO DAILY for 30 Days, #30 TAB Metoprolol Succinate (Metoprolol Succinate) 25 Mg Tab.sr.24h 1 TAB PO DAILY for 30 Days, #30 TAB 0 Refills Pantoprazole Sodium (Pantoprazole Sodium) 40 Mg Tablet.dr 40 MG PO BKF for 30 Days, #30 TAB.SR Discharge Summary: A 59-year-old female with a significant medical history of atrial fibrillation, heart failure with preserved ejection fraction, hypertension, hyperlipidemia, peripheral arterial disease status post right superficial femoral artery (SFA) stenting, and type 2 diabetes mellitus (A1c 9.5). She presented to the Emergency Department with recurrent left-sided chest pain. Hospital Course: This is the patients third hospital admission in November. She reports that she lost all her medications and has been off her prescribed Eliquis, Plavix, and antihypertensive therapy within three weeks. She described her chest pain as left-sided chest pressure associated with shortness of breath and diaphoresis, which lasted several hours until arrived to the ED. The pain resolved after administration of sublingual nitroglycerin in ER. On admission, her initial troponin were 73-78-73 ng/L. The patient was chest painfree initially but later developed recurrent discomfort while on the floor. No new ischemic changes were seen on EKG. BNP was elevated at 7667 (previous one was 8928). Urine toxicology was positive for methamphetamine. WBC improved and creatinine remained stable. She underwent a NM Cardiac stress test/Lexiscan on last admission showing preserved ejection fraction (55%) without valvular disease. A repeat stress test on 12/13/2024 showed Normal left ventricular size, wall motion, and function, without evidence of infarction or of myocardium at ischemic risk. The left ventricular ejection fraction is 33%. 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 During her prior admission on 11/30, she underwent right lower extremity angiography with successful balloon angioplasty, drug-eluting balloon angioplasty, and placement of a new overlapping stent in the proximal to mid right superficial femoral artery, which overlapped her prior distal SFA stent. Post-procedure angiography demonstrated wide vessel patency with no significant residual stenosis. Her last methamphetamine use was 1 week ago. She was put on DAPT along with her Eliquis for her Afib with ChadVasc score 3. We have continued her home meds for HFpEF with Jardiance. Her Afib was controlled well with her home med PO Amiodarone [address] Lal recommended that the changes for her PAD and CP are chronic, and patient could be discharged with adequate counseling about compliance. Dr. Das also consulted for PAD, who recommended MODE which showed 0.63 and suggested following in the outpatient setting with either ASA or Plavix on discharge. Her blood sugar was controlled with the Insulin injections during hospitalization. Her substance use disorder was consulted by social science professor and substance use navigator counseling to strongly encourage quit using substances. Throughout her stay, her medication noncompliance was addressed and counseled and consulted by case planner and social insurance adviser here. All of the home medications were reconciled and a appropriately continue during hospitalization. All of her questions and concerns were addressed with the best knowledge of our team before she was discharged back home today. Patient's vitals were stable at the moment with temp 97.8 F, OR 90/minute, RR 22/minute, BP 147/64 mm Hg, pulse oximetry 90% on room air. She reported that she does not have any chest pain anymore at the moment but the leg pain. On examination, Awake , alert, and oriented x4, resting comfortably in the bed, in no acute distress HEENT: Atraumatic, normocephalic, EOMI, anicteric sclera ; pink conjunctiva Neck: Trachea midline. Supple, full range of motion, no JVD Cardiac: Irregular rhythm, irregular rate with systolic murmurs all over the precordium. Respiratory: Equal breath sounds bilaterally, no tachypnea, no wheezing ,rub or rales, Chest wall is symmetric and without deformity. Gastrointestinal: Abdomen symmetric, non-distended, soft, non-tender, normal bowel sounds x4 quadrant, normoactive, no hepatosplenomegaly Musculoskeletal: Very feeble pulses on the right lower extremity, right lower extremity has scarring and skin changes over the foot, no motor/ sensory deficits Neurological: Mental status exam: alert and consciousness, orientation, memory, speech - Cranial nerve test: Cranial nerves 2-12 intact - Motor system: Nutrition, Tone 3+, Power 5/5, no involuntary movements - Sensory system: Intact - Reflex testing: Biceps, triceps and knee reflexes 2+ - Cerebellar: Normal Skin: Warm and dry Imaging during hospitalization: -Chest x-ray on 12/13/2024: Right basilar consolidation and right pleural effusion. -NM cardiac stress test/Lexiscan on 12/14/2024 showed: Normal left ventricular size, wall motion, and function, without evidence of infarction or of myocardium at ischemic risk. The left ventricular ejection fraction is 33%. -CTA abdominal aorta with bilateral lower extremity runoff with the contrast on 12/14/2024 showed: Multiple severe stenoses in the right SFA in the upper thigh. Moderate long segment in stent stenoses in the right thigh with severe focal stenosis near the end of the stent in the lower thigh. Critical focal and short-segment stenoses in the right TP trunk and posterior tibial artery. Several critical focal stenoses in the left SFA throughout its length. Occluded left posterior tibial artery in mid calf with distal reconstitution. At least moderate-sized right pleural effusion. -vascular ultrasound on bilateral lower extremity showed 12/15/2024: Right MODE at rest 0.63 based on JASMYN indicating moderate disease, Noncompressible based on MODELING DIRECTOR Left MODE at rest noncompressible Labs: Laboratory Tests Test 12/14/24 16:45 12/14/24 21:01 12/15/24 08:02 12/15/24 11:15 Glucometer 268 mg/dl 167 mg/dl 174 mg/dl White Blood Count 8.5 X10'3 Red Blood Count 4.26 X10'6 Hemoglobin 11.9 g/dl Hematocrit 35.4 % Mean Corpuscular Volume 83.1 FL Mean Corpuscular Hemoglobin 28.0 PG Mean Corpuscular Hemoglobin Concent 33.7 g/dL Red Cell Distribution Width 14.4 % Platelet Count 93 X10'3 Mean Platelet Volume 8.7 FL Neutrophils (%) (Auto) 80.8 % Lymphocytes (%) (Auto) 9.4 % Monocytes (%) (Auto) 6.2 % Eosinophils (%) (Auto) 2.9 % Basophils (%) (Auto) 0.7 % Neutrophils # (Auto) 6.9 X10'3 Lymphocytes # (Auto) 0.8 X10'3 Monocytes # (Auto) 0.5 X10'3 Eosinophils # (Auto) 0.2 X10'3 Basophils # (Auto) 0.1 X10'3 CBC Comment Sodium Level 134 MMOL/L Potassium Level 4.2 MMOL/L Chloride Level 102 MMOL/L Carbon Dioxide Level 30.3 MMOL/L Anion Gap 2 Blood Urea Nitrogen 26 MG/DL Creatinine 1.06 MG/DL Estimated GFR/1.73 m2 53 ML/MIN BUN/Creatinine Ratio 24.5 Glucose Level 254 MG/DL Calcium Level 8.0 MG/DL Magnesium Level 1.8 MG/DL Albumin 1.7 G/DL Chemistry Comments Test 12/15/24 12:21 12/15/24 15:58 12/15/24 17:28 12/15/24 20:23 Glucometer 280 mg/dl 156 mg/dl 184 mg/dl White Blood Count 8.5 X10'3 Red Blood Count 4.18 X10'6 Hemoglobin 11.7 g/dl Hematocrit 35.2 % Mean Corpuscular Volume 84.2 FL Mean Corpuscular Hemoglobin 28.0 PG Mean Corpuscular Hemoglobin Concent 33.2 g/dL Red Cell Distribution Width 14.2 % Platelet Count 96 X10'3 Mean Platelet Volume 9.1 FL Neutrophils (%) (Auto) 76.5 % Lymphocytes (%) (Auto) 13.0 % Monocytes (%) (Auto) 7.0 % Eosinophils (%) (Auto) 2.6 % Basophils (%) (Auto) 0.9 % Neutrophils # (Auto) 6.5 X10'3 Lymphocytes # (Auto) 1.1 X10'3 Monocytes # (Auto) 0.6 X10'3 Eosinophils # (Auto) 0.2 X10'3 Basophils # (Auto) 0.1 X10'3 CBC Comment Sodium Level 131 MMOL/L Potassium Level 4.4 MMOL/L Chloride Level 101 MMOL/L Carbon Dioxide Level 26.8 MMOL/L Anion Gap 3 Blood Urea Nitrogen 29 MG/DL Creatinine 0.98 MG/DL Estimated GFR/1.73 m2 58 ML/MIN BUN/Creatinine Ratio 29.6 Glucose Level 240 MG/DL Calcium Level 7.8 MG/DL Albumin 1.7 G/DL Chemistry Comments Test 12/16/24 07:10 12/16/24 12:18 Glucometer 186 mg/dl 210 mg/dl Microbiology: Microbiology 12/13/24 MRSA Screen - Final, Complete NO METHICILLIN RESISTANT S. AUREUS IS... Discharge instructions: -Immediate return to ER for emergency situations including any chest pain/pressure/discomfort, severe intolerable progressive leg pain on rest/color changes, etc. -medication compliance place an important role -please follow up with PCP, Dr. Mcpherson surgery and Cardiology Dr. Lal in a week or two after discharge. -Plavix/clopidogrel place an important role to maintain blood supply with blood vessel patency to the peripheral extremities to avoid severe leg pain -heart healthy diet and control the blood sugar as much as possible. Resident MD attestation: Patient was seen, examined and discussed with attending MD, Dr. Kristal ROSARIO MD Internal Medicine Resident, PGY3 [facility] *Problems/Diagnosis: (1) Acute angina Status: Resolved Total Time Spent on D/C: > 30 Minutes Date of Service: Dec 16, 2024 Billing Provider: LIDIA GILLETTE MD Common Visit Codes: 88919-JMI/OBS DISCH DAY >30min ROCIO ROSARIO, RES Dec 16, 2024 11:37 LIDIA GILLETTE MD Dec 17, 2024 07:32
[2024-12-16] MEDS ORDERED: INSULIN LISPRO 100 UNIT/ML INSULN.PEN MULTI-DOSE SQ SCH (12:00)
[2024-12-16 12:16] VITALS: PULSE 87; RESP 18; O2SAT 98
== END 2024-12-16 12:54 | disposition home or self-care (01) | DRG 198 ==
LOC: ER 03:34 → ED HOLD 07:45 → ORTHO 4S 14:00
PROVIDERS: ADMIT Family Medicine; ATTEND Family Medicine
PROC: 4A02XM4 Measurement of Cardiac Total Activity, External Approach (ICD-10-PCS; principal; 2024-12-14)
PROC: 3E033HZ Introduction of Radioactive Substance into Peripheral Vein, Percutaneous Approach (ICD-10-PCS; 2024-12-14)
PROC: B4201ZZ Computerized Tomography (CT Scan) of Abdominal Aorta using Low Osmolar Contrast (ICD-10-PCS; 2024-12-14)
PROC: B4241ZZ Computerized Tomography (CT Scan) of Superior Mesenteric Artery using Low Osmolar Contrast (ICD-10-PCS; 2024-12-14)
PROC: B4281ZZ Computerized Tomography (CT Scan) of Bilateral Renal Arteries using Low Osmolar Contrast (ICD-10-PCS; 2024-12-14)
PROC: B42C1ZZ Computerized Tomography (CT Scan) of Pelvic Arteries using Low Osmolar Contrast (ICD-10-PCS; 2024-12-14)
PROC: B42H1ZZ Computerized Tomography (CT Scan) of Bilateral Lower Extremity Arteries using Low Osmolar Contrast (ICD-10-PCS; 2024-12-14)
PROC: B4211ZZ Computerized Tomography (CT Scan) of Celiac Artery using Low Osmolar Contrast (ICD-10-PCS; 2024-12-14)
PROC: B42H1ZZ Computerized Tomography (CT Scan) of Bilateral Lower Extremity Arteries using Low Osmolar Contrast (ICD-10-PCS; 2024-12-14)
DX: I24.89 Other forms of acute ischemic heart disease (principal); N17.0 Acute kidney failure with tubular necrosis; I50.32 Chronic diastolic (congestive) heart failure; I11.0 Hypertensive heart disease with heart failure; E11.9 Type 2 diabetes mellitus without complications; G35.D Multiple sclerosis, unspecified; I48.21 Permanent atrial fibrillation; Z59.00 Homelessness unspecified; F17.210 Nicotine dependence, cigarettes, uncomplicated; I25.119 Atherosclerotic heart disease of native coronary artery with unspecified angina pectoris; I73.9 Peripheral vascular disease, unspecified; F15.90 Other stimulant use, unspecified, uncomplicated; M79.7 Fibromyalgia; J43.9 Emphysema, unspecified; Z91.148 Patient's other noncompliance with medication regimen for other reason; Z88.0 Allergy status to penicillin; Z86.73 Personal history of transient ischemic attack (TIA), and cerebral infarction without residual deficits; Z79.01 Long term (current) use of anticoagulants; Z79.899 Other long term (current) drug therapy
CPT/HCPCS: 36415; 71045; 75635; 78452; 80048; 80305; 81001; 82948; 83735; 83880; 84484; 85025; 85610; 87081; 93005; 93017; 93922; 94640; 94760; 96360; 96372; 99285; A9500; G0378; J0280; J0360; J1815; J2270; J7030; Q9967

== ENCOUNTER 2025-01-28 02:05 | Inpatient (IN) | payer MEDICAID ==
[2025-01-28] VITALS (15 sets, daily range): BP systolic 114–173; BP diastolic 67–92; PULSE 72–107; RESP 16–32; TEMP 98.1–98.3; O2SAT 95–98
[~2025-01-28] VITALS: Ht 157.5 cm; Wt 78.0 kg
[~2025-01-28 02:05] MED LIST changes: +CLOP-32 PO; -CLOP75TA34 PO
[2025-01-28 02:42] LABS: MEAN PLATELET VOLUME 8.1 FL (7.4-10.4); RED CELL DISTRIBUTION WIDTH 15.3 % (11.5-14.5)
--- NOTE | 2025-01-28 02:44 | RADIOLOGY REPORT ---
CHEST RADIOGRAPH INDICATION: sob TECHNIQUE: Single frontal view of the chest was obtained COMPARISON: DI CHEST,SINGLE VIEW on DOS: 12/13/24, DI CHEST,SINGLE VIEW on DOS: 12/08/24, DI CHEST,SINGLE VIEW on DOS: 12/03/24, DI CHEST,SINGLE VIEW on DOS: 11/30/24, DI CHEST,SINGLE VIEW on DOS: 09/19/24 FINDINGS: Lines and Tubes: None Lungs: Progressive now large right pleural effusion. Small left pleural effusion. No pneumothorax. Cardiomediastinal contours: Cardiomegaly. Bones: Unremarkable IMPRESSION: 1. Progressive now large right pleural effusion. 2. Small left pleural effusion. 3. Cardiomegaly.
--- NOTE | 2025-01-28 02:59 | Physician Documentation ---
History of Present Illness ~ Chief Complaint: Shortness of Breath Stated Complaint: SOB M ALS Time Seen by MD: 02:10 Primary Medical Doctor: DAVID RUIZ Mode of Arrival: EMS HPI This is a 59-year-old female with a known history of CHF, recurrent thoracentesis, presents for evaluation of shortness a breath that started this morning similar to prior CHF exacerbation. No obvious trigger provocation. No palliating or aggravating factors. Not accompanied by chest pain. Did not attempt to treat it. States he is compliant with all her medications. Denies any fever but does report subjective chills. States she does not smoke, but there is a secondhand exposure Medication Reconciliation Allergies: Coded Allergies: Penicillins (Verified Allergy, Unknown, HIVES, 01/28/25) TOLERATING CEFEPIME 01/2024 Scheduled Amiodarone Hcl (Cordarone), 200 MG PO DAILY Apixaban (Eliquis), 1 TAB PO BID Atorvastatin Calcium* (Lipitor*), 1 TAB PO DAILY Budesonide/Formoterol Fumarate (Symbicort 80-4.5 Mcg Inhaler), 2 PUFFS INH Q12H Clopidogrel Bisulfate (Plavix), 1 TAB PO DAILY Empagliflozin (Jardiance), 10 MG PO DAILY Furosemide* (Lasix*), 1 TAB PO DAILY Insulin Glargine,Hum.rec.anlog (Basaglar Kwikpen U-100), 30 UNITS SQ QPM Lisinopril (Lisinopril), 20 MG PO DAILY Metoprolol Succinate (Metoprolol Succinate), 1 TAB PO DAILY Pantoprazole Sodium (Pantoprazole Sodium), 40 MG PO BKF Scheduled PRN Ipratropium/Albuterol Sulfate (Combivent Respimat Inhal [place]), 2 PUFFS IH Q4H PRN for SOB or wheezing Past Medical History Past Medical History: CVA/TIA/Stroke, Multiple Sclerosis, Congestive Heart Failure, Hypertension, Asthma, COPD, Emphysema, Constipation, Hepatitis C, Di abetes, Fibromyalgia, Cellulitis Past Surgical History: , orthopedic surgeries, tonsillectomy Patient History: FH: skin cancer Maternal Grandmother Alcohol Use: None Drug Use: none Lives In: Homeless, Other Review of Systems ROS 10 point review of systems was performed and unless noted above in HPI is negative for acute process/complaint. Physical Exam Vital Signs: Temperature: 97.6, Source: Oral, Heart Rate: 108, Respiratory Rate: 22, BP: 189/93, Pulse Oximetry: 93, Weight: 78.000 Oxygen Flow Rate: 6.0 Physical Exam GENERAL: Awake, alert, oriented, GCS 15, no apparent distress, non-toxic appearing, answers questions, follows commands appropriately. Examined immediately upon arrival in bed 9. HEENT: Atraumatic, normocephalic, pupils equal, extraocular muscles intact, sclerae anicteric, mucus membranes moist, oropharynx is clear, no stridor. NECK: supple, full active range of motion, trachea midline, no thyromegaly, no lymphadenopathy, no JVD. CARDIOVASCULAR: regular rate/rhythm, no murmurs/gallops/rubs, Pulses are 2+ in all extremities and symmetric. Capillary refill less than 2 seconds. PULMONARY: Nonlabored, good air movement ,no respiratory distress, speaking in full sentences, coarse breath sounds bilaterally, scattered expiratory wheezing, no ronchi, bilateral rales, no accessory muscle use. GASTROINTESTINAL: Soft, non-tender, non-distended, normal active bowel sounds, no organomegaly, no pulsatile masses, no CVA tenderness. NEUROLOGIC: Lucid with normal mental status. Normal facial symmetry. Moves all extremities symmetrically and with purpose. No truncal ataxia. Speech is fluid without evidence of dysarthria or aphasia, no focal deficits appreciated. MUSCULOSKELETAL: There is full range of motion of all extremities. There is no joint pain or joint swelling or joint erythema. There is no muscle pain or tenderness or swelling. EXTREMITIES: warm, well-perfused, no cyanosis, no clubbing, no edema, no acute deformities. Skin: warm, dry, no rashes or lesions, no jaundice, no petechiae orpurpura. No ecchymosis. PSYCHIATRIC: Normal affect, normal insight, normal concentration. Focused exam: [] Progress Results/Orders Results/Orders Orders - CHAZ SEGURA DO Electrocardiogram (01/28/25 02:22) Culture Blood (01/28/25 02:22) Chest,Single View (01/28/25 02:22) Hs Troponin I W Calculations (01/28/25 04:22) Completed Orders - CHAZ SEGURA DO Cbc/Diff (01/28/25 02:22) Chest,Single View (01/28/25 02:22) PBNP (01/28/25 02:22) MG (01/28/25 02:22) CMP (01/28/25 02:22) Hs Troponin I W Calculations (01/28/25 02:22) Lacticsepsis (01/28/25 02:22) Vital Signs 01/28/25 01/28/25 01/28/25 01/28/25 02:09 02:10 02:19 03:20 Temp 97.6 Pulse 108 107 Resp 22 22 22 B/P (MAP) 189/93 189/87 (121) Pulse Ox 93 90 O2 Flow Rate 6.0 6.0 Laboratory Tests Test 01/28/25 02:20 01/28/25 02:54 White Blood Count 5.8 Red Blood Count 4.71 Hemoglobin 12.9 Hematocrit 39.3 Mean Corpuscular Volume 83.4 Mean Corpuscular Hemoglobin 27.3 Mean Corpuscular Hemoglobin Concent 32.8 L Red Cell Distribution Width 15.3 H Platelet Count 125 L Mean Platelet Volume 8.1 Neutrophils (%) (Auto) 63.0 Lymphocytes (%) (Auto) 25.0 Monocytes (%) (Auto) 7.3 Eosinophils (%) (Auto) 3.6 Basophils (%) (Auto) 1.1 H Neutrophils # (Auto) 3.6 Lymphocytes # (Auto) 1.4 Monocytes # (Auto) 0.4 Eosinophils # (Auto) 0.2 Basophils # (Auto) 0.1 CBC Comment Sodium Level 140 Potassium Level 4.0 Chloride Level 105 Carbon Dioxide Level 29.5 Anion Gap 6 L Blood Urea Nitrogen 15 Creatinine 0.84 Estimated GFR/1.73 m2 69 BUN/Creatinine Ratio 17.9 Glucose Level 326 H Calcium Level 8.8 Magnesium Level 2.0 Total Bilirubin 0.3 Aspartate Amino Transf (AST/SGOT) 42 H Alanine Aminotransferase (ALT/SGPT) 16 Alkaline Phosphatase 132 H Troponin I High Sensitivity 57 *H Pro-B-Type Natriuretic Peptide 3959 H Total Protein 6.5 Albumin 2.2 L Globulin 4.3 Albumin/Globulin Ratio 0.5 L Chemistry Comments Lactic Acid Level 1.0 EKG/XRAY/CT/US/VASC/MRI EKG : Additional Comment EKG was obtained and interpreted by myself shows sinus tachycardic, rate of 106, normal AL interval, wide QRS with a right bundle, prolonged QTC of 542, left axis, no STEMI Medical Decision Making Additional information obtaine: old records, other (EMS) Findings Facility Status: ED Holds, E process The plan was discussed with the patient, who demonstrates clear understanding of the plan and is in agreement with the plan unless otherwise noted in the chart. All questions have been answered, all concerns were addressed unless otherwise documented. I was available throughout their ED stay for frequent reassessment and questions. Differential Diagnoses (considered and possible or likely): [COPD exacerbation, CHF exacerbation, combined process, ACS, pneumonia, pneumothorax, less likely PE] ??Differential Diagnoses (considered and unlikely, not requiring evaluation currently): [No evidence of trauma] MDM Data Please see [facility] for the following: Independent Historians and external Records Review. Historian: [Patient] Independent Historians: ?[EMS, record review] Medication Management: [Reviewed medication list] Social History and determinants: [Reviewed] Please see the body of the note for the following: Any independent interpretations of ECG, imaging studies. All vitals signs/haemodynamics, ordered tests were independently reviewed and interpreted by myself. Nursing triage complaint and vitals reviewed, additional nursing notes were reviewed as available and I agree unless otherwise noted or documented in contradiction in the chart Vital Signs: Independently reviewed Labs: Independently interpreted Imaging: Independently interpreted Old Medical Records: Independently reviewed, see [facility] for relevant summary and information Pulse Oximetry: [It is 7% on room air] interpreted as [hypoxia] by me [Website Project Manager: Tachycardic Rate, Regular rhythm, no ectopy, sinus tachycardic with a wide complex. reviewed and interpreted by me] Additionally notably showing: [Hemodynamics reviewed. The patient is hypoxic, tachycardic, hypotensive, however she is not in respiratory extremis. She does require 6 L. Laboratory studies reviewed. CBC is normal except for mild thrombocytopenia. Normal hemoglobin. Chemistry is notable for elevated glucose. She does have elevated troponin, likely related from heart strain based on her increased BNP of almost 4000. Chest x-ray was obtained and independently interpreted by myself showing cardiomegaly, midline trachea, no obvious focal infiltrate, right-sided pleural effusion. Radiology also notes left-sided pleural effusion.] Tests considered but not ordered include: [Advanced imaging has been considerably does not appear to be necessary at this time, echocardiogram can be done on an inpatient basis] Social Determinants of Health Impact: Patient was evaluated in [facility], or [facility] [place] to healthcare due to below par ratio of patient to medical providers. [] Comorbid Conditions Impacting Present Evaluation and Care/Treatment: [Known CHF] Management Discussions with other Healthcare Providers: Hospitalist regarding admission [] Treatment and Disposition Medication Management (Given or considered): [Lasix]. See EMR for details Consideration for Hospitalization/Escalation/Deescalation of Care: Admission for observation is necessary for further management of her CHF exacerbation ?ED Course:?[No significant clinical deterioration, no significant improvement] ?Shared decision making:?[] Code status:?FULL Please see the full Electronic Medical Record for full details of nursing d ocumentation, medications list, other records of complete past medical history and conditions, vital signs, laboratory studies, and any radiologic study interpretations by radiologists. Portions of this note were completed using [employer] dictation software and as a result there may exist minor errors in spelling. I have reviewed elements of past family and social history and agree as included in note. Heart Score: 0 Differential Dx:Considerations: Include: CHF, COPD, dysrhythmia, hypertension, accelerated, hypertension, essential, hypertension, malignant, hyperventilation, hyponatremia, myocardial infarction, pneumonia, pneumothorax, PSVT, respiratory distress Departure Disposition: ADMITTED INPATIENT Impression: Primary Impression: Acute exacerbation of congestive heart failure Additional Impressions: Hypertensive emergency Hyperglycemia Recurrent right pleural effusion Hypoxia Elevated troponin Condition: Guarded Referrals: NO PRIMARY CARE PROVIDER (PCP) Signature Scribe Signature: No scribe Attestation: The note accurately reflects work and decisions made by me.Chaz Segura, 01/28/25 02:59 CHAZ SEGURA DO Jan 28, 2025 02:59
[2025-01-28 03:04] LABS: CREATININE 0.84 MG/DL (0.40-0.90); TOTAL CARBON DIOXIDE 29.5 MMOL/L (24-32); eCRCL 57 ML/MIN; eGFR 69 ML/MIN
[2025-01-28 03:13] LABS: PRO BRAIN NATRIURETIC PEPTIDE 3959 PG/ML (0-125)
[2025-01-28] MEDS: furosemide 10 MG/1 ML 10ml inj IV ONE ×2 (04:23→07:58)
[2025-01-28] MEDS ORDERED: magnesium sulf-water 2g/50mL 50 ML IV PRN (04:50)
[2025-01-28] MEDS ORDERED: magnesium Cl slow-release 64mg tablet PO PRN (04:50)
[2025-01-28] MEDS ORDERED: mag hydrox/Alum hydrox/simeth 30ml oral suspension PO PRN (04:50)
[2025-01-28] MEDS ORDERED: ondansetron/PF 4mg/2ml inj IV PRN (04:50)
[2025-01-28] MEDS ORDERED: potassium Cl 20 mEq SR tablet PO PRN (04:50)
[2025-01-28] MEDS ORDERED: potassium Cl 40MEQ/1/2NS 520ml 520 ML IV PRN (04:50)
[2025-01-28] MEDS ORDERED: magnesium hydroxide 30ml (MOM) UD suspension PO PRN (04:50)
[2025-01-28] MEDS ORDERED: magnesium sulf-water 4G/100mL 100 ML IV PRN (04:50)
--- NOTE | 2025-01-28 05:16 | HISTORY AND PHYSICAL-Residence ---
History & Physical Providers to CC Resident Creating Document: TIP DARLING, RES ~ History of Present Illness Primary Medical Doctor: DAVID URIZ Reason for Admit\Complaint: Shortness of breathe History of Present Illness A 59-year-old female with past medical history CVA/TIA/Stroke, AFib Multiple Sclerosis, Congestive Heart Failure, Hypertension, Asthma, COPD, Emphysema, Constipation, Hepatitis C,Diabetes mellitus, Fibromyalgia, Cellulitis presented to the ER with chief complaints of shortness of Breath. She endorses that she has been with shortness of breaths for quite a long time but however she is having more short of breath for the past couple of days, class 4 NYHA associated with orthopnea and PND. She is feeling like a drowning and suffocating. She reported swelling of the legs. She denied chest pain, fever, cough, pain abdomen, wheezing, weakness of limb, abdominal distention, slurring of speech, deviation of angle of mouth, chest pain, palpitations. Allergies: Coded Allergies: Penicillins (Verified Allergy, Unknown, HIVES, 01/28/25) TOLERATING CEFEPIME 01/2024 Home Medications Home Medications Active Plavix (Clopidogrel Bisulfate) 75 Mg Tablet 1 Tab PO DAILY 30 Days Lasix* (Furosemide) 20 Mg Tablet 1 Tab PO DAILY 30 Days Pantoprazole Sodium 40 Mg Tablet.dr 40 Mg PO BKF 30 Days Jardiance (Empagliflozin) 10 Mg Tablet 10 Mg PO DAILY 30 Days Lisinopril 10 Mg Tablet 20 Mg PO DAILY 30 Days Basaglar Kwikpen U-100 (Insulin Glargine,Hum.rec.anlog) 100 Unit/Ml (3 Ml) Insuln.pen 30 Units SQ QPM Combivent Respimat Inhal [place] (Albuterol/Ipratropium) 20 Mcg-100 Mcg/Actuation Aer.w.adap 2 Puffs IH Q4H PRN Metoprolol Succinate 25 Mg Tab.sr.24h 1 Tab PO DAILY 30 Days Symbicort 80-4.5 Mcg Inhaler (Budesonide/Formoterol Fumarate) 80 Mcg-4.5 Mcg/Actuation Hfa.aer.ad 2 Puffs INH Q12H 30 Days Lipitor* (Atorvastatin Calcium) 40 Mg Tablet 1 Tab PO DAILY 30 Days Cordarone (Amiodarone HCl) 200 Mg Tablet 200 Mg PO DAILY 30 Days Eliquis (Apixaban) 5 Mg Tablet 1 Tab PO BID 30 Days Past Medical History Past Medical History CVA/TIA/Stroke, Multiple Sclerosis, Congestive Heart Failure, Hypertension, Asthma, COPD, Emphysema, Constipation, Hepatitis C, Diabetes mellitus, Fibromyalgia, Cellulitis Past Surgical History: , orthopedic surgeries, tonsillectomy Past Surgical History Surgical History Comment , orthopedic surgeries, tonsillectomy Family History Family History: FH: skin cancer Maternal Grandmother Past Social History Alcohol Use: None Drug Use: None Lives In: Homeless, Other ROS Constitutional: Reports: malaise, weakness Eyes: Reports: no symptoms reported ENT: Reports: no symptoms reported Respiratory: Reports: orthopnea, shortness of breath, SOB with exertion, SOB at rest Cardiovascular: Reports: edema Gastrointestinal: Reports: no symptoms reported Genitourinary: Reports: no symptoms reported Female Genitalia: Reports: no reported symptoms Neurological: Reports: no symptoms reported Musculoskeletal: Reports: no symptoms reported Integumentary: Reports: no symptoms reported Allergic/Immunologic: Reports: no symptoms reported Hematologic/Lymphatic: Reports: no symptoms reported Endocrine: Reports: no symptoms reported Psychiatric: Reports: no symptoms reported Exam Vitals: Vital Signs Date Time Temp Pulse Resp B/P (MAP) Pulse Ox O2 Delivery O2 Flow Rate FiO2 01/28/25 04:10 101 26 174/91 (118) 92 6.0 01/28/25 02:19 97.6 General: General: Awake, awake, oriented, GCS 15. In moderate respiratory distress and on 6 L of oxygen via nasal cannula. follows commands appropriately. HEENT: Atraumatic, normocephalic, jugular vein is distended pupils equal, extraocular muscles intact, sclerae anicteric, mucus membranes moist, oropharynx is clear, no stridor. NECK: supple, full active range of motion, trachea midline, no thyromegaly, no lymphadenopathy, no JVD. CARDIOVASCULAR: Irregular rate/rhythm, no murmurs/gallops/rubs, Pulses are 2+ in all extremities and symmetric. Capillary refill less than 2 seconds. PULMONARY: Nonlabored, good air movement ,no respiratory distress, speaking in full sentences, coarse breath sounds bilaterally, scattered expiratory wheezing, no ronchi, bilateral rales more on the right side of the lung. no accessory muscle use. Gastrointestinal: Soft, non-tender, non-distended, normal active bowel sounds, no organomegaly, no pulsatile masses, no CVA tenderness. Neurological system : Lucid with normal mental status. Normal facial symmetry. Moves all extremities symmetrically and with purpose. No truncal ataxia. Speech is fluid without evidence of dysarthria or aphasia, no focal deficits appreciated. Musculoskeletal: There is full range of motion of all extremities. There is no joint pain or joint swelling or joint erythema. There is no muscle pain or tenderness or swelling. Extremities: warm, well-perfused, no cyanosis, no clubbing, bilateral pedal edema is present. no acute deformities. Skin: warm, dry, no rashes or lesions, no jaundice, no petechiae orpurpura. No ecchymosis. PSYCHIATRIC: Normal affect, normal insight, normal concentration Diagnostic Data Last Recorded Lab Results: 01/28/2521901/28/25219 Advance Care Planning Advanced Care plannin - 30 Minutes Additional Plan Acute hypoxemic respiratory failure likely secondary to below 1) Acute exacerbation of chronic CHF 2) Heart failure with preserved ejection fraction 3) Large right pleural effusion Received 40 mg of Lasix IV ordered for 1 more 40 mg IV Lasix and continue IV Lasix 40 mg IV b.i.d. Thought albuterol q.2h p.r.n. for shortness of breaths/wheezing and DuoNebs q.4h scheduled. We spoke with Dr. Desai for thoracentesis in the morning and he informed us that he is going to Dr. Caceres meanwhile we placed the orders for thoracentesis Oxygen requirement is 6 L/min via nasal cannula and we are treating the respiratory failure with methylprednisolone 125 stat followed by 40 mg q.6 H. proBNP is elevated 3959. Hypertensive emergency Ordered metoprolol 5 mg IV 1 time dose Blood pressure elevated initially 189/87 and it went down to 150s & heart rate is controlled with the 5 mg of metoprolol Continuing lisinopril 20 mg p.o. daily Continue Lasix 40 mg IV b.i.d. AFib with RVR Rate is controlled Troponinemia likely secondary to type 2 NM First troponin level is 57 and we will continue to track the troponin Diabetes mellitus A1c is ordered and blood glucose is in 300s Started on Lantus 16 units and Humalog high dose protocol Maintain blood glucose between 140-180 Severe protein malnutrition Hypoalbuminemia Albumin is 2.2 Continue to monitor CMP CVA/TIA Continue atorvastatin 40 mg p.o. daily, Plavix 75 mg Disposition: Pending thoracentesis. Orders are placed. Per Dr. Desai . Morning ER doctor is going to do the thoracentesis if not consult sports management internship Code status: Full code DVT prophylaxis: Eliquis Diet: Heart healthy diet Prognosis: Guarded Tip Darling IM resident, PGY Patient seen and examined with Dr Darling Agree with his A/P except that we should hold her apixaban and clopidogrel today and hold off on the the thoracentesis since it is non-emergent. If she has not improved adequately by tomorrow by diuresis/the effusion is still large, we will proceed with thora at that point. Both clopidogrel and apixaban should be restarted after that. Plan reviewed with bedside team. Patient seen through remote audiovisual assessment through HIPAA compliant setup. All labs, flowsheets, and images reviewed Cumulative nonprocedural care time spent in directed patient care = 30 min Date of Service: Jan 28, 2025 Billing Provider: KASIE ONEIL MD, VENKATESH, RES Jan 28, 2025 05:16 KASIE ONEIL MD Jan 28, 2025 06:49
[2025-01-28] MEDS ORDERED: albuterol 2.5 MG/3 ML nebule NEB PRN (05:30)
--- NOTE | 2025-01-28 05:31 | ELECTROCARDIOGRAPH REPORT ---
[facility] Test Date: 2025-01-28 Test Time: 02:10:55 Pat Name: RHIANNON BATES Department: EMERGENCY ROOM Room: [place] [address] Gender: F Code Enforcement Inspector: YOLANDA : 1965 Requested By: NUNU SEGURA Order Number: [id number] Reading MD: Dr. Agustin Chung Measurements Intervals [place] Rate: 106 P: 100 GA: 141 QRS: -78 QRSD: 168 T: 110 QT: 408 QTc: 542 Interpretive Statements Atrial-paced complexes RBBB and LAFB LVH with secondary repolarization abnormality Electronically Signed On 02-07-2025 0:24:[address] Agustin Chung Please click the below link to view image of tracing.
[2025-01-28] MEDS: albuterol 2.5 MG/3 ML nebule NEB ONE (05:54)
[2025-01-28] MEDS ORDERED: DEXTROSE 15 GM of carb/4 tabs (each vial/BOTTLE has 4 tablets) PO PRN (05:55)
[2025-01-28] MEDS ORDERED: glucagon, human recombinant 1mg kit SUBCUT PRN (05:55)
[2025-01-28] MEDS: metoprolol tartrate 1mg/ml inj IV ONE ×2 (05:55→23:51)
[2025-01-28 06:29] LABS: APTT 25 SECONDS (22-32)
[2025-01-28 06:33] LABS: LACTATE DEHYDROGENASE 252.0 U/L (81-234); PHOSPHORUS 3.7 MG/DL (2.3-4.5)
[2025-01-28] MEDS: ipratropium/albuterol 3ml nebule NEB SCH (07:58)
[2025-01-28] MEDS: K and/or MAG REPLACEMENT MC SCH (08:00)
[2025-01-28] MEDS: docusate sod 100mg capsule PO SCH (08:00)
[2025-01-28] MEDS ORDERED: heparin, porcine 5000 units/ml vial SQ SCH (08:00)
[2025-01-28] MEDS: potassium Cl 20 mEq SR tablet PO PRN (08:04)
[2025-01-28] MEDS: INSULIN LISPRO 100 UNIT/ML INSULN.PEN MULTI-DOSE SQ SCH ×3 (08:09→20:30)
[2025-01-28 08:56] LABS: INR 1.0 INR
[2025-01-28 09:35] LABS: URINE AMPHETAMINE SCREEN POSITIVE (Neg); URINE BARBITUATE SCREEN NEGATIVE (Neg); URINE BENZODIAZEPINES SCREEN NEGATIVE (Neg); URINE CANNABINOID SCREEN NEGATIVE (Neg); URINE COCAINE SCREEN NEGATIVE (Neg); URINE METHADONE SCREEN NEGATIVE (Neg); URINE OPIATE SCREEN NEGATIVE (Neg); URINE PHENCYCLIDINE SCREEN NEGATIVE (Neg)
[2025-01-28] MEDS: Permethrin Cream 60gm TP SCH (20:31)
[2025-01-28] MEDS: insulin glargine (Lantus) pen - multi-dose SQ SCH (20:31)
[2025-01-28] MEDS: HYDROcodone/acetaminophen 5mg/325mg tablet PO ONE (20:33)
[2025-01-28] MEDS ORDERED: insulin glargine (Lantus) pen - multi-dose SQ SCH ×2 (21:00)
[2025-01-28] MEDS ORDERED: hydrALAZINE 20mg/ml inj. IV PRN (23:05)
[2025-01-28] MEDS: HYDROmorphone inj. 0.5 MG/0.5 ML DISP.SYRIN IV ONE (23:30)
[2025-01-29] VITALS (18 sets, daily range): BP systolic 116–155; BP diastolic 59–102; PULSE 74–113; RESP 14–20; TEMP 96.5–98.4; O2SAT 74–99
[2025-01-29] MEDS ORDERED: Permethrin Cream 60gm TP SCH (06:58)
[2025-01-29 08:13] LABS: CREATININE 0.66 MG/DL (0.40-0.90); TOTAL CARBON DIOXIDE 26.1 MMOL/L (24-32); eCRCL 73 ML/MIN; eGFR > 90 ML/MIN
[2025-01-29 09:07] LABS: MEAN PLATELET VOLUME 8.6 FL (7.4-10.4); RED CELL DISTRIBUTION WIDTH 15.0 % (11.5-14.5)
[2025-01-29] MEDS: methylPREDNISolone sod succ/PF 40mg inj. IV SCH (09:20)
[2025-01-29 12:42] LABS: C DIFF ANTIGEN NEGATIVE (NEGATIVE); C DIFF SPECIMEN=DIARRHEA? ACCEPTABLE; C DIFFICILE TOXINS A&B NEGATIVE (Neg)
[2025-01-29 14:01] LABS: BFSOURCE RIGHT PLEURAL FLD; PLEURAL FLUID PH 7.518 (7.63-7.65)
[2025-01-29 14:23] LABS: GLUCOSE,BODY FLUID 210 MG/DL; LDH,BODY FLUID 74 U/L
[2025-01-29 14:27] LABS: BFAPPEAR CLEAR; BFCOLOR YELLOW; BFSOURCE RIGHT PLEURAL FLD
[2025-01-29 14:28] LABS: BF RBC COUNT 88 /CU MM; BF WBC COUNT 118 /CU MM (0-1000); BFVOLUME 55 ML; LYMPHOCYTES,BODY FLUID 87 %; MONOCYTES,BODY FLUID 11 %; NEUTROPHILS,BODY FLUID 2 %
--- NOTE | 2025-01-29 14:30 | CONSULTATION REPORT - RESIDENT ---
Consult Providers to CC Resident Creating Document: ROCIO ROSARIO RES History of Present Illness Reason for Admit\Complaint: Pulm consult for the right moderate pleural effusion History of Present Illness A 59 years old female with recurrent hospitalization for the acute on chronic hypoxic respiratory failure with PMH of CVA/TIA/Stroke, AFib Multiple Sclerosis, CHFpEF 55% NYHA Class IV, Hypertension, Asthma, COPD, Emphysema, Constipation, Hepatitis C,Diabetes mellitus, Fibromyalgia, Cellulitis who was requested for the pulmonary consultation for the possible thoracentesis for her right sided moderate pleural effusion. Allergies: Coded Allergies: Penicillins (Verified Allergy, Unknown, HIVES, 01/28/25) TOLERATING CEFEPIME 01/2024 Home Medications Home Medications Active Plavix (Clopidogrel Bisulfate) 75 Mg Tablet 1 Tab PO DAILY 30 Days Lisinopril 10 Mg Tablet 20 Mg PO DAILY 30 Days Basaglar Kwikpen U-100 (Insulin Glargine,Hum.rec.anlog) 100 Unit/Ml (3 Ml) Insuln.pen 30 Units SQ QPM Combivent Respimat Inhal Rumely (Albuterol/Ipratropium) 20 Mcg-100 Mcg/Actuation Aer.w.adap 2 Puffs IH Q4H PRN Lipitor* (Atorvastatin Calcium) 40 Mg Tablet 1 Tab PO DAILY 30 Days Eliquis (Apixaban) 5 Mg Tablet 1 Tab PO BID 30 Days Past Medical History Past Medical History CVA/TIA/Stroke, AFib Multiple Sclerosis, CHFpEF 55% NYHA Class IV, Hypertension, Asthma, COPD, Emphysema, Constipation, Hepatitis C,Diabetes mellitus, Fibromyalgia, Cellulitis Past Surgical History Surgical History Comment , orthopedic surgeries, tonsillectomy Family History Family History: FH: skin cancer Maternal Grandmother ROS ROS ROS were reviewed Exam Vitals: Vital Signs Date Time Temp Pulse Resp B/P (MAP) Pulse Ox O2 Delivery O2 Flow Rate FiO2 01/29/25 14:11 103 20 Nasal Cannula 3.0 01/29/25 14:06 97 32 01/29/25 11:00 96.5 150/77 (101) General: General: Well alert, well oriented, not confused, not agitated, slightly in acute distress, well cooperated during the physical. HEENT: HEENT: Conjunctive are pink, sclerae clear, no icterus, pupil is equal in both sides, reactive to light, no ear discharge, no pharyngeal erythema or an edema, mouth and lips are moist. Neck: Neck: Supple, no JVD, no lymphadenopathy and thyromegaly. 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: No focal neurological deficits, no motor and sensory weakness in all 4 extremities, could move all 4 extremities Musculoskeletal: Musculoskeletal: No joint swelling, deformities, inflammations, and no scoliosis and back tenderness Skin: Skin: No active skin lesions and rashes Diagnostic Data Last Recorded Lab Results: 01/29/25 0826 01/29/25 0705 Diagnostic Data: Laboratory Tests Test 01/28/25 06:02 01/28/25 06:59 Activated Partial Thromboplast Time 25 SECONDS (22-32) Prothrombin Time 10.7 SECONDS (9.0-12.0) INR International Normalized Ratio 1.0 INR Coagulation Comments Additional Plan # Acute on chronic hypoxic respiratory failure 2/2 # ACute on chronic CHFpEF 60-65% exacerbation # Right sided Moderate to large pleura effusion -CXR showed IMPRESSION: 1. Progressive now large right pleural effusion. 2. Small left pleural effusion. 3. Cardiomegaly. -mostly from the CHF exacerbation indued bilateral pleural effusion -Pt is currently on the 6L/min NC oxygen supply to maintain SpO2 of 93% on NC 3L/min -We reviewed the CXR images along with the bedside thoracic USG scan to navigate the pleural effusion for possible thoracentesis this afternoon. Pt has collected the aspiratable amount of right sided pleural effusion on USG imaging. -We performed the both diagnostic and therapeutic USG guided bedside thoracentesis today showing the yellow osmany cleared color 1.1L pleural flud were aspirated from the right thorax with no complications. -The post procedure CXR recheck is pending at that moment. -Pt's oxygenation is improved in the post procedure status. # Hypertensive Emergency # Afib with RVR # T2MI # T2DM # other comorbities -please continue with the primary care management plan Dispo: Performed the diagnostic and theraputic right sided throacentesis delivered to the labs for fluid study to follow up, pending repeated CXR in the post procedure, and monitor the potential collateral effects from the procedure, monitor the oxygenation status, and we are welcome for the further pulmonary consultation related questions and discussion. Appreciated for your requesting on the pulmonary medicine consultation. Resident MD attestation: Patient was seen, examined and discussed with Pulmonary and critical care attending Dr. Jaleesa BUI MD Internal Medicine Resident, PGY3 [facility] Date of Service: Jan 29, 2025 Billing Provider: AURNA GARCIA MD, TIN, RES Jan 29, 2025 14:30
[2025-01-29 14:54] LABS: TOTAL PROTEIN,BODY FLUID < 2.0 G/DL
--- NOTE | 2025-01-29 14:54 | PROCEDURE NOTE- Residance ---
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 My hands were washed immediately prior to the procedure. I wore a surgical cap, mask with protective eyewear, sterile gown and sterile gloves throughout the procedure. The patient was prepped and draped in a sterile manner using chlorhexidine scrub after the appropriate level was percussed and confirmed by ultrasound. 1% lidocaine was used to anesthesize the skin, subcutaneous tissue, superior aspect of the rib periosteum and parietal pleura. A finder needle was then introduced over the superior aspect of the rib to locate the pleural fluid; Yellow clear osmany colored fluid was aspirated after the half of the catheter was introduced. A 10- blade scalpel was used to marianne the skin at the insertion site. The Pjsv-d-Cnssxkoo needle was then introduced through the skin incision into the pleural space using negative aspiration pressure. The thoracentesis catheter was then threaded without difficulty. 1100 ml of clear osmany yellow colored fluid was removed without difficulty. The catheter was then removed. No immediate complications were noted during the procedure. A post-procedure chest x-ray is pending at the time of this note. The fluid will be sent for studies. Estimated blood loss is 0. Estimated Blood Loss None Complication None X-Ray Findings Pending Date of Service: Jan 29, 2025 Billing Provider: ARUNA GARCIA MD, TIN, RES Jan 29, 2025 14:54
--- NOTE | 2025-01-29 18:47 | RADIOLOGY REPORT ---
CHEST RADIOGRAPH Indication: After Thoracentisis Technique: Single frontal view of the chest was obtained COMPARISON: DI CHEST,SINGLE VIEW on DOS: 01/28/25, DI CHEST,SINGLE VIEW on DOS: 12/13/24, DI CHEST,SINGLE VIEW on DOS: 12/08/24, DI CHEST,SINGLE VIEW on DOS: 12/03/24, DI CHEST,SINGLE VIEW on DOS: 11/30/24 FINDINGS: Lines and Tubes: None Lungs: Mild pulmonary vascular congestion. Pleura: Decreased now small right pleural effusion.No pneumothorax. Cardiomediastinal contours: Cardiomegaly. Bones: Unremarkable IMPRESSION: Decreased now small right pleural effusion. No pneumothorax.
[2025-01-29] MEDS: INSULIN LISPRO 100 UNIT/ML INSULN.PEN MULTI-DOSE SQ SCH (18:50)
--- NOTE | 2025-01-29 19:07 | PROGRESS NOTE- Residence ---
Progress Note - Resident Providers to CC Resident Creating Document: FELECIA PATEL SHAWBERTO, RES ~ Antibiotic Timeout Antibiotic Ordered?: Yes Subjective The patient was seen and examined at bedside today. She does not have any new complaints. She wants to get thoracentesis done and discharged. Objective Vital Signs Date Time Temp Pulse Resp B/P (MAP) Pulse Ox O2 Delivery O2 Flow Rate FiO2 01/29/25 15:00 97.9 105 18 155/71 (99) 97 Room Air 01/29/25 14:11 3.0 01/29/25 14:06 32 Result Diagram: 01/29/25 0826 01/29/25 0705 General: Awake and Alert, no acute distress, on 3 L of oxygen through nasal cannula. HEENT: Conjunctiva pink, Sclera clear, Mucus Membranes moist. Neck: Supple without masses and tenderness. Resp: Unlabored. Lungs clear to auscultation on left hemithorax. Right lower lung tello - no breath sounds heard. Heart: Regular Rate and rhythm, normal S1 and S2 without murmur, rub or gallop. Abdomen: Soft and non tender no organomegaly Extremities: No cyanosis,clubbing or edema. Skin: Warm and Dry. Coagulation Studies Laboratory Tests Test 01/28/25 06:02 01/28/25 06:59 Activated Partial Thromboplast Time 25 SECONDS (22-32) Prothrombin Time 10.7 SECONDS (9.0-12.0) INR International Normalized Ratio 1.0 INR Coagulation Comments Plan Plan Acute hypoxemic respiratory failure Acute exacerbation of chronic CHF, preserved ejection fraction Large right pleural effusion s/p thoracentesis Patient underwent right thoracentesis with yield of 1150 mL of transudative fluid. Resume Eliquis and Plavix from tomorrow. Continue IV Lasix 40 mg b.i.d. DuoNebs q.4 scheduled and albuterol q.2h PRN, Solu-Medrol 40 mg q.6 H. Hypertensive emergency Increased lisinopril from 20 mg to 40 mg daily. Continue hydralazine 15 mg prn. Paroxysmal atrial fibrillation Sinus rhythm. Rate is controlled, less than 110. Troponinemia likely secondary to type 2 NM Troponins mildly elevated and stable. Patient does not have any chest pain. Diabetes mellitus HB A1c 9.8. Patient will receive 30 units of Lantus tonight along with 8 units of fixed dose Humalog plus high-dose sliding scale Humalog. Starting from tomorrow, patient will receive 20 units of Lantus b.i.d. along with 8 units fixed dose Humalog plus high-dose sliding scale Humalog. Severe protein malnutrition Hypoalbuminemia Albumin is 1.8 Continue to monitor CMP CVA/TIA Continue atorvastatin 40 mg p.o. daily, Plavix 75 mg from tomorrow. Substance use disorder Drug screen positive for amphetamines. Substance use navigator consulted. Code status: Full code DVT prophylaxis: Eliquis Diet: Heart healthy diet Prognosis: Guarded Disposition: Monitor sugars. Anticipate discharge in the next 24-48 hours. Felecia Patel MD Internal Medicine Resident, PGY-2 The patient was seen, examined and discussed with the attending physician, Dr. Giraldo. Date of Service: Jan 29, 2025 Billing Provider: LIDIA GIRALDO MD,FELECIA ZAYAS, RES Jan 29, 2025 19:07
[2025-01-29] MEDS: HYDROcodone/acetaminophen 10/325mg tab PO ONE (20:58)
--- NOTE | 2025-01-29 20:59 | ELECTROCARDIOGRAPH REPORT ---
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 Lavern Sabillon Measurements Intervals [place] Rate: 108 P: 83 IN: 151 QRS: -96 QRSD: 167 T: 86 QT: 390 QTc: 523 Interpretive Statements Sinus tachycardia RBBB and LAFB Consider Inferior infarct, acute (RCA) Lateral leads are also involved Probable RV involvement, suggest recording right precordial leads Electronically Signed On 01-30-2025 6:51:[address] Lavern Sabillon Please click the below link to view image of tracing.
[2025-01-29] MEDS: insulin glargine (Lantus) pen - multi-dose SQ ONE (21:28)
[2025-01-30] VITALS (19 sets, daily range): BP systolic 122–159; BP diastolic 52–82; PULSE 62–105; RESP 12–22; TEMP 97.6–98.2; O2SAT 92–98
[2025-01-30 08:12] LABS: MEAN PLATELET VOLUME 8.6 FL (7.4-10.4); RED CELL DISTRIBUTION WIDTH 15.3 % (11.5-14.5)
[2025-01-30 08:36] LABS: CREATININE 0.89 MG/DL (0.40-0.90); TOTAL CARBON DIOXIDE 30.1 MMOL/L (24-32); eCRCL 54 ML/MIN; eGFR 65 ML/MIN
--- NOTE | 2025-01-30 12:17 | RADIOLOGY REPORT ---
AP portable chest Comparison: 01/29/2025 CLINICAL INDICATION: sob FINDINGS: There is a right chest tube present. There is loculated fluid with consolidation in the right lung base. IMPRESSION: 1. Compared to previous exam there has been placement of a right-sided chest tube. There is continuing evidence of loculated fluid and consolidation of the right lower lung zone
--- NOTE | 2025-01-30 14:24 | PROGRESS NOTE- Residence ---
Progress Note - Resident Providers to CC Resident Creating Document: FELECIA PATEL, RES ~ Antibiotic Timeout Antibiotic Ordered?: Yes Subjective The patient was seen and examined at bedside today. She had chest pain last night which was not cardiac. Her postprocedural x-ray is still shows pleural effusion with loculations. Consulted Dr. Bliss. Objective Vital Signs Date Time Temp Pulse Resp B/P (MAP) Pulse Ox O2 Delivery O2 Flow Rate FiO2 01/30/25 11:28 99 16 Nasal Cannula 2.0 01/30/25 11:23 92 28 01/30/25 07:00 98.1 151/80 (103) Result Diagram: 01/30/25 0732 01/30/25 0732 General: Awake and Alert, no acute distress, on 2 L of oxygen through nasal cannula. HEENT: Conjunctiva pink, Sclera clear, Mucus Membranes moist. Neck: Supple without masses and tenderness. Resp: Unlabored. Lungs clear to auscultation on left hemithorax. Right lower lung tello - no breath sounds heard. Heart: Regular Rate and rhythm, normal S1 and S2 without murmur, rub or gallop. Abdomen: Soft and non tender no organomegaly Extremities: No cyanosis, clubbing or edema. Skin: Warm and Dry. Coagulation Studies Laboratory Tests Test 01/28/25 06:02 01/28/25 06:59 Activated Partial Thromboplast Time 25 SECONDS (22-32) Prothrombin Time 10.7 SECONDS (9.0-12.0) INR International Normalized Ratio 1.0 INR Coagulation Comments Plan Plan Acute hypoxemic respiratory failure Acute exacerbation of chronic CHF, preserved ejection fraction Large right pleural effusion s/p thoracentesis Patient underwent right thoracentesis with yield of 1150 mL of transudative fluid. Postprocedure x-ray continues to show right pleural effusion with loculations. CT chest with contrast ordered. Consulted Dr. Bliss for recommendations. Continue IV Lasix 40 mg b.i.d. Wean oxygen as tolerated. DuoNebs q.4 scheduled and albuterol q.2h PRN, Solu-Medrol 40 mg q.6 H. Hypertensive emergency Continue lisinopril 40 mg daily. Continue hydralazine 15 mg prn. Paroxysmal atrial fibrillation Sinus rhythm currently. Rate is controlled, less than 110. Troponinemia likely secondary to type 2 ME Troponins mildly elevated and stable. Patient does not have any chest pain. Diabetes mellitus HB A1c 9.8. Continue 20 units of Lantus b.i.d. along with 8 units fixed dose Humalog plus high-dose sliding scale Humalog. Severe protein malnutrition Hypoalbuminemia Albumin is 1.8 Continue to monitor CMP CVA/TIA Continue atorvastatin 40 mg p.o. daily, Plavix 75 mg Substance use disorder Drug screen positive for amphetamines. Substance use navigator consulted. Code status: Full code DVT prophylaxis: Eliquis Diet: Heart healthy diet Prognosis: Guarded Disposition: Monitor sugars. Follow up with Dr. Bliss's recommendations. Felecia Patel MD Internal Medicine Resident, PGY-2 The patient was seen, examined and discussed with the attending physician, Dr. Giraldo. Date of Service: Jan 30, 2025 Billing Provider: LIDIA GIRALDO MD,FELECIA ZAYAS, RES Jan 30, 2025 14:24
[2025-01-30] MEDS ORDERED: iohexol 300mg/ml 100ml inj. ONE ×2 (17:03→17:09)
--- NOTE | 2025-01-30 18:22 | RADIOLOGY REPORT ---
EXAM: ANGIO THORACENTESIS DIAGNOSTIC (A) CLINICAL HISTORY: Pleural fluid analysis COMPARISON: ANGIO THORACENTESIS DIAGNOSTIC (A) on DOS: 11/30/24, ANGIO THORACENTESIS DIAGNOSTIC (A) on DOS: 09/13/24, ANGIO THORACENTESIS DIAGNOSTIC (A) on DOS: 07/23/24, ANGIO THORACENTESIS THERAPEUTIC (A) on DOS: 05/10/24, ANGIO THORACENTESIS DIAGNOSTIC (A) on DOS: 03/23/24 TECHNIQUE: Targeted sonographic evaluation of the soft tissues of the right was obtained utilizing grayscale and color Doppler imaging. Findings/Impression: Moderate right pleural effusion
--- NOTE | 2025-01-30 18:25 | RADIOLOGY REPORT ---
EXAM: CT CT CHEST W/ IV CONTRAST HISTORY: sob TECHNIQUE: CT angiogram was performed. CT scans at this facility use dose modulation, iterative reconstruction, and/or weight based dosing when appropriate to reduce radiation dose to as low as reasonably achievable. Coronal and sagittal reformations and maximum intensity projection images were created from the transaxial source data by the instrument technologist and workstation, as well as 3-D volume rendered images with MIPs. COMPARISON: CT CT CHEST W/ IV CONTRAST on DOS: 09/11/24 FINDINGS: [LOWER NECK]: Unremarkable [LYMPH NODES/MEDIASTINUM]: No abnormal lymph nodes by CT size criteria [CARDIOVASCULAR]: Coronary artery calcifications. Question concentric left ventricular hypertrophy with normal cardiac size. No pericardial effusion. No aneurysmal dilatation of the great vessels. [PULMONARY ARTERIES]: No pulmonary arterial filling defect. Normal caliber of the main pulmonary artery. No evidence of elevated right heart pressures. [UPPER ABDOMEN]: Minimal possible distal esophageal wall thickening. [MUSCULOSKELETAL]: Sclerosis with multiple prior anterior ribs which may be sequelae of prior fracture of the 2nd, 3rd, 4th, 5th, 6th ribs. Sclerosis of the inferior sternal body of indeterminate etiology. Multilevel degenerative change of the visualized spine. [CHEST WALL]: Unremarkable [LUNG PARENCHYMA/PLEURAL SPACE]: Medium-sized right-sided pleural effusion with possible loculation. Partial collapse of the right lower lobe. Small left-sided pleural effusion with atelectasis of the left lung base. Trace area of bronchiolectasis of the posterior basilar segment, left lower lobe. Pleural effusion in the right pleural space has decreased from prior examination. Masslike area of consolidation versus rounded atelectasis measuring 2.5 x 2.3 cm of the anterior aspect of the right middle lobe. IMPRESSION: 1. Medium-sized right-sided pleural effusion with possible loculation. 2. Small left-sided pleural effusion with atelectasis of the left lung base. 3. Masslike area of consolidation versus rounded atelectasis measuring 2.5 x 2.3 cm of the anterior aspect of the right middle lobe. 4. Sclerosis with multiple prior anterior ribs which may be sequelae of prior fracture of the 2nd, 3rd, 4th, 5th, 6th ribs. 5. Sclerosis of the inferior sternal body of indeterminate etiology.
[2025-01-30] MEDS ORDERED: insulin glargine (Lantus) pen - multi-dose SQ SCH (20:28)
[2025-01-30] MEDS: insulin glargine (Lantus) pen - multi-dose SQ SCH (20:31)
[2025-01-30] MEDS: morphine 4 MG/ML inj SYRINge IV PRN (23:45)
[2025-01-31] VITALS (13 sets, daily range): BP systolic 135–156; BP diastolic 67–78; PULSE 90–111; RESP 18–20; TEMP 97.9–98.6; O2SAT 93–97
[2025-01-31 08:05] LABS: MEAN PLATELET VOLUME 9.0 FL (7.4-10.4); RED CELL DISTRIBUTION WIDTH 15.4 % (11.5-14.5)
[2025-01-31 08:30] LABS: CREATININE 0.96 MG/DL (0.40-0.90); TOTAL CARBON DIOXIDE 32.0 MMOL/L (24-32); eCRCL 50 ML/MIN; eGFR 59 ML/MIN
[2025-01-31] MEDS: INSULIN LISPRO 100 UNIT/ML INSULN.PEN MULTI-DOSE SQ SCH (12:03)
--- NOTE | 2025-01-31 17:32 | CARDIOLOGY REPORT ---
APPROVED REPORT EXAM: Comprehensive 2D, Doppler, and color-flow Echocardiogram. Patient Location: 3010 A Blood Pressure: 135/70 mmHg Heart Rate: 95 bpm Rhythm: SINUS Indications SHORTNESS OF BREATH ELEVATED RPBONP (3959) ATRIAL FIBRILLATION DIABETES MELLITUS Drawer Liner: Maria T Martin MD Previous echo: 11/30/24 [facility] SS (EF 55%, trace MR, trace TR) 2D Dimensions RVDd 3.3 cm LA Diam 4.1 cm LVOT Diameter 2.13 (1.8-2.4cm) IVC 22.68 mm CO 5.8 L/min M-Mode Dimensions Left Atrium(MM) 3.40 (2.5-4.0cm) IVSd 1.51 (0.7-1.1cm) LVDd 4.70 (4.0-5.6cm) Aortic Root 3.26 (2.2-3.7cm) PWd 1.57 (0.7-1.1cm) Aortic Cusp Exc 1.96 (1.5-2.0cm) IVSs 1.22 cm LVDs 3.26 (2.0-3.8cm) FS (%) 31 % PWs 2.00 cm ESV(Teich) 42.9 ml LVEF(%) 58 (>50%) Biplane 2D LA Volumes LA ESV Index 30.45 mL/m2 Aortic Valve AoV Peak Jaylen. 153.8 cm/s AoV VTI 25.4 cm AO Peak GR. 9.5 mmHg AO Mean GR. 6 mmHg LVOT VTI 18.32 cm LVOT Peak Jaylen. 114.8 cm/s MALENA(VTI)/BSA 2.57 cm2/m2 MALENA (VTI) 2.57 cm2 AV DI 0.72 % Mitral Valve MV Peak Gr. 8 mmHg MV PHT 34 ms MVA (PHT) 6.47 cm2 MV VMax 142.2 cm/s LEFT VENTRICLE Normal LV size and function. Moderate concentric hypertrophy. Overall LVEF is 55-60%. RIGHT VENTRICLE RV is normal size and function. ATRIA Left atrium is mildly dilated. AORTIC VALVE Trileaflet AV appears mildly sclerotic without stenosis or insufficiency by color and spectral flow Doppler. MITRAL VALVE Mild MV annular calcification without stenosis. Trace regurgitation by color and spectral flow Doppler. TRICUSPID VALVE TV appears structurally normal with trace regurgitation by color and spectral flow Doppler. PULMONIC VALVE Normal PV without stenosis, physiologic insufficiency by color and spectral flow Doppler. GREAT VESSELS Aortic root is normal in size. IVC is dilated and collapses less than 50% with inspiration. PERICARDIUM Normal pericardium. No effusion. Other Information Study Quality: Adequate Conclusion Overall LVEF is 55-60%. Normal LV size and function. Moderate concentric hypertrophy. RV is normal size and function. Trileaflet AV appears mildly sclerotic without stenosis or insufficiency by color and spectral flow Doppler. Mild MV annular calcification without stenosis. Trace regurgitation by color and spectral flow Doppler. TV appears structurally normal with trace regurgitation by color and spectral flow Doppler. Normal PV without stenosis, physiologic insufficiency by color and spectral flow Doppler. Normal pericardium. No effusion.
--- NOTE | 2025-01-31 18:07 | ELECTROCARDIOGRAPH REPORT ---
[facility] Test Date: 2025-01-31 Test Time: 18:05:39 Pat Name: RHIANNON BATES Department: [facility] 3S Patient ID: [facility]-[id number] Room: [place] [id number] A Gender: F Inspector Glass Or Mirror: ASHOK : 1965 Requested By: BRITTNI GILLESPIE Order Number: [id number] Reading MD: Dr. Lavern Sabillon Measurements Intervals [place] Rate: 99 P: 73 SD: 150 QRS: -89 QRSD: 173 T: 91 QT: 402 QTc: 516 Interpretive Statements Sinus rhythm Probable left atrial enlargement RBBB and LAFB Abnormal T, consider ischemia, lateral leads Electronically Signed On 02-01-2025 7:06:[address] Lavern Sabillon Please click the below link to view image of tracing.
--- NOTE | 2025-01-31 18:39 | PROGRESS NOTE- Residence ---
Progress Note - Resident Providers to CC Resident Creating Document: FELECIA PATEL, RES ~ Antibiotic Timeout Antibiotic Ordered?: No Subjective The patient was seen and examined at bedside today. She has no new complaints. Dr. Bliss getting preop prep for her. NPO after midnight. Objective Vital Signs Date Time Temp Pulse Resp B/P (MAP) Pulse Ox O2 Delivery O2 Flow Rate FiO2 01/31/25 15:27 94 20 Room Air 0.0 21 01/31/25 15:19 94 01/31/25 02:00 98.0 135/70 (91) Result Diagram: 01/31/25 0711 01/31/25 0711 General: Awake and Alert, no acute distress, on room air HEENT: Conjunctiva pink, Sclera clear, Mucus Membranes moist. Neck: Supple without masses and tenderness. Resp: Unlabored. Lungs clear to auscultation on left hemithorax. Right lower lung tello - no breath sounds heard. Heart: Regular Rate and rhythm, normal S1 and S2 without murmur, rub or gallop. Abdomen: Soft and non tender no organomegaly Extremities: No cyanosis, clubbing or edema. Skin: Warm and Dry. Coagulation Studies Laboratory Tests Test 01/28/25 06:02 01/28/25 06:59 Activated Partial Thromboplast Time 25 SECONDS (22-32) Prothrombin Time 10.7 SECONDS (9.0-12.0) INR International Normalized Ratio 1.0 INR Coagulation Comments Plan Plan Acute hypoxemic respiratory failure Acute exacerbation of chronic CHF, preserved ejection fraction Large right pleural effusion s/p thoracentesis Patient underwent right thoracentesis with yield of 1150 mL of transudative fluid. Postprocedure x-ray continues to show right pleural effusion with loculations. CT chest with contrast shows possible loculations in the right lung. Consulted Dr. Bliss for recommendations. He is planning on possible VATS tomorrow. NPO after midnight. Continue IV Lasix 40 mg b.i.d. Wean oxygen as tolerated. DuoNebs q.4 scheduled and albuterol q.2h PRN, Solu-Medrol 40 mg q.6 H. Hypertensive emergency Continue lisinopril 40 mg daily. Continue hydralazine 15 mg prn. Paroxysmal atrial fibrillation Sinus rhythm currently. Rate is controlled, less than 110. Troponinemia likely secondary to type 2 [place] Troponins mildly elevated and stable. Patient does not have any chest pain. Diabetes mellitus HB A1c 9.8. Continue 20 units of Lantus b.i.d. along with 15 units fixed dose Humalog plus high-dose sliding scale Humalog. Severe protein malnutrition Hypoalbuminemia Continue to monitor CMP CVA/TIA Continue atorvastatin 40 mg p.o. daily, Plavix 75 mg Substance use disorder Drug screen positive for amphetamines. Substance use navigator consulted. 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 Code status: Full code DVT prophylaxis: Eliquis Diet: Heart healthy diet Prognosis: Guarded Disposition: NPO after midnight, possible VATS by Dr. Bliss tomorrow. Felecia Patel MD Internal Medicine Resident, PGY-2 The patient was seen, examined and discussed with the attending physician, Dr. Giraldo. Date of Service: Jan 31, 2025 Billing Provider: LIDIA GIRALDO MD,FELECIA ZAYAS, RES Jan 31, 2025 18:39
[2025-01-31] MEDS: methylPREDNISolone sod succ/PF 40mg inj. IV SCH (20:00)
--- NOTE | 2025-01-31 20:43 | PROGRESS NOTE ---
Progress Note ID Providers to CC ~ Progress Note Progress Note: pt seen-needs right thorascopic talc pleurodesis-scheduled for tuesday SHIRA GARCIA MD Jan 31, 2025 20:43
[2025-01-31] MEDS: DEXTROSE 15 GM of carb/4 tabs (each vial/BOTTLE has 4 tablets) PO PRN (21:34)
[2025-02-01] VITALS (12 sets, daily range): BP systolic 115–157; BP diastolic 48–75; PULSE 75–107; RESP 12–22; TEMP 97.5–98.2; O2SAT 93–98
[2025-02-01 07:33] LABS: MEAN PLATELET VOLUME 8.1 FL (7.4-10.4); RED CELL DISTRIBUTION WIDTH 15.5 % (11.5-14.5)
[2025-02-01 08:09] LABS: CREATININE 1.16 MG/DL (0.40-0.90); TOTAL CARBON DIOXIDE 32.2 MMOL/L (24-32); eCRCL 41 ML/MIN; eGFR 48 ML/MIN
[2025-02-01] MEDS: morphine 4 MG/ML inj SYRINge IV PRN (09:50)
--- NOTE | 2025-02-01 10:10 | PROGRESS NOTE ---
Progress Note ID Providers to CC ~ Progress Note Progress Note: no icu beds-case rescheduled for tuesday SHIRA GARCIA MD Feb 01, 2025 10:10
[2025-02-01] MEDS ORDERED: AMIO200T76 PO (13:49)
[2025-02-01] MEDS ORDERED: LOPE-190 PO (13:49)
[2025-02-01] MEDS: HYDROcodone/acetaminophen 5mg/325mg tablet PO PRN (15:32)
[2025-02-01] MEDS: loperamide 2mg capsule PO PRN (15:32)
--- NOTE | 2025-02-01 17:03 | PROGRESS NOTE- Residence ---
Progress Note - Resident Providers to CC Resident Creating Document: GRACIELA VERDUZCO RES ~ Antibiotic Timeout Antibiotic Ordered?: No Subjective The patient was seen and examined at bedside today. She has no new complaints. For surgery, vats has been postponed to Tuesday. Objective Vital Signs Date Time Temp Pulse Resp B/P (MAP) Pulse Ox O2 Delivery O2 Flow Rate FiO2 02/01/25 15:36 102 18 Nasal Cannula 1.0 02/01/25 15:28 93 21 02/01/25 07:45 98.2 115/63 (80) Result Diagram: 02/01/2515 02/01/25714 General: Awake and Alert, no acute distress, on room air HEENT: Conjunctiva pink, Sclera clear, Mucus Membranes moist. Neck: Supple without masses and tenderness. Resp: Unlabored. Lungs clear to auscultation on left hemithorax. Right lower lung tello - no breath sounds heard. Heart: Regular Rate and rhythm, normal S1 and S2 without murmur, rub or gallop. Abdomen: Soft and non tender no organomegaly Extremities: No cyanosis, clubbing or edema. Skin: Warm and Dry. Coagulation Studies Laboratory Tests Test 01/28/25 06:02 01/28/25 06:59 Activated Partial Thromboplast Time 25 SECONDS (22-32) Prothrombin Time 10.7 SECONDS (9.0-12.0) INR International Normalized Ratio 1.0 INR Coagulation Comments Counseling Services Smoking & Tobacco Cessation: N/A Advance Care Planning Advanced Care planning: N/A Plan Plan Acute hypoxemic respiratory failure Acute exacerbation of chronic CHF, preserved ejection fraction Large right pleural effusion s/p thoracentesis Patient underwent right thoracentesis with yield of 1150 mL of transudative fluid. Postprocedure x-ray continues to show right pleural effusion with loculations. CT chest with contrast shows possible loculations in the right lung. What is with Dr. Bliss on Tuesday Continue IV Lasix 40 mg b.i.d. Wean oxygen as tolerated. DuoNebs q.4 scheduled and albuterol q.2h PRN, Solu-Medrol 40 mg q.6 H. Hypertensive emergency Continue lisinopril 40 mg daily. Continue hydralazine 15 mg prn. Paroxysmal atrial fibrillation Sinus rhythm currently. Rate is controlled, less than 110. Troponinemia likely secondary to type 2 [place] Troponins mildly elevated and stable. Patient does not have any chest pain. Diabetes mellitus HB A1c 9.8. Blood sugars controlled. Continue 20 units of Lantus b.i.d. along with 15 units fixed dose Humalog plus high-dose sliding scale Humalog. Severe protein malnutrition Hypoalbuminemia Ensure protein shakes. Continue to monitor CMP CVA/TIA Continue atorvastatin 40 mg p.o. daily, Plavix 75 mg Substance use disorder Drug screen positive for amphetamines. Substance use navigator consulted. 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 Code status: Full code DVT prophylaxis: Eliquis Diet: Heart healthy diet Prognosis: Guarded Disposition: Vats surgery postponed to Tuesday. Continue medical management Graciela verduzco MD Internal Medicine Resident, PGY-1 The patient was seen, examined and discussed with the attending physician, Dr. Giraldo. Date of Service: Feb 01, 2025 Billing Provider: LIDIA GIRALDO MD, SHIVANI, RES Feb 01, 2025 17:03
[2025-02-01] MEDS: INSULIN LISPRO 100 UNIT/ML INSULN.PEN MULTI-DOSE SQ SCH (17:59)
[2025-02-01] MEDS: IVERMECTIN 117 GM LOTION TP ONE (20:32)
[2025-02-01] MEDS: insulin glargine (Lantus) pen - multi-dose SQ SCH (20:54)
[2025-02-02 06:00] VITALS: BP 108/61; PULSE 76; RESP 16; TEMP 98.6; O2SAT 98
[2025-02-02 07:20] LABS: MEAN PLATELET VOLUME 9.2 FL (7.4-10.4); RED CELL DISTRIBUTION WIDTH 15.1 % (11.5-14.5)
[2025-02-02 08:00] VITALS: BP 117/76; PULSE 80; RESP 16; O2SAT 98
[2025-02-02] MEDS: ipratropium/albuterol 3ml nebule NEB SCH (08:00)
[2025-02-02 08:12] VITALS: PULSE 78; RESP 18; O2SAT 98
[2025-02-02 08:15] LABS: CREATININE 1.13 MG/DL (0.40-0.90); TOTAL CARBON DIOXIDE 30.4 MMOL/L (24-32); eCRCL 42 ML/MIN; eGFR 49 ML/MIN
[2025-02-02] MEDS: insulin glargine (Lantus) pen - multi-dose SQ SCH (09:04)
[2025-02-02 11:00] VITALS: BP 111/54; PULSE 81; RESP 20; TEMP 97.6; O2SAT 95
--- NOTE | 2025-02-02 12:42 | PROGRESS NOTE- Residence ---
Progress Note - Resident Providers to CC Resident Creating Document: FELECIA PATEL, RES ~ Antibiotic Timeout Antibiotic Ordered?: No Subjective The patient was seen and examined at bedside today. She complained about not having salt in her diet. Explained her that she is on heart healthy diet. VATS on Tuesday. No other complaints. Objective Vital Signs Date Time Temp Pulse Resp B/P (MAP) Pulse Ox O2 Delivery O2 Flow Rate FiO2 02/02/25 11:00 97.6 81 20 111/54 (73) 95 Nasal Cannula 2.0 02/02/25 08:12 21 Result Diagram: 02/02/25 0624 02/02/25 0748 General: Awake and Alert, no acute distress, on room air HEENT: Conjunctiva pink, Sclera clear, Mucus Membranes moist. Neck: Supple without masses and tenderness. Resp: Unlabored. Lungs clear to auscultation on left hemithorax. Right lower lung tello - diminished breath sounds heard Heart: Regular Rate and rhythm, normal S1 and S2 without murmur, rub or gallop. Abdomen: Soft and non tender no organomegaly Extremities: No cyanosis, clubbing or edema. Skin: Warm and Dry. Coagulation Studies Laboratory Tests Test 01/28/25 06:02 01/28/25 06:59 Activated Partial Thromboplast Time 25 SECONDS (22-32) Prothrombin Time 10.7 SECONDS (9.0-12.0) INR International Normalized Ratio 1.0 INR Coagulation Comments Plan Plan Acute hypoxemic respiratory failure Acute exacerbation of chronic CHF, preserved ejection fraction Large right pleural effusion s/p thoracentesis Patient underwent right thoracentesis with yield of 1150 mL of transudative fluid. Postprocedure x-ray continues to show right pleural effusion with loculations. CT chest with contrast shows possible loculations in the right lung. VATS by Dr. Bliss on Tuesday Continue IV Lasix 40 mg b.i.d. Wean oxygen as tolerated. Patient has been refusing breathing treatments. She does not wheeze anymore. Ordered DuoNebs q.12h scheduled and q.2h PRN. Hypertensive emergency Continue lisinopril 40 mg daily. Started her on carvedilol 3.125 mg b.i.d. Paroxysmal atrial fibrillation Sinus rhythm currently. Rate is controlled, less than 110. Eliquis on hold for surgery. Troponinemia likely secondary to type 2 [place] Troponins mildly elevated and stable. Patient does not have any chest pain. Diabetes mellitus HB A1c 9.8. Blood sugars controlled. Continue 20 units of Lantus b.i.d. along with 15 units fixed dose Humalog plus high-dose sliding scale Humalog. Severe protein malnutrition Hypoalbuminemia Ensure protein shakes. Continue to monitor CMP CVA/TIA Continue atorvastatin 40 mg p.o. daily, Plavix 75 mg Substance use disorder Drug screen positive for amphetamines. Substance use navigator consulted. 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 Code status: Full code DVT prophylaxis: SCDs Diet: Heart healthy diet PT: Home with assist Prognosis: Guarded Disposition: Continue medical management. VATS on Tuesday. Felecia Patel MD Internal Medicine Resident, PGY-2 The patient was seen, examined and discussed with the attending physician, Dr. Giraldo. Date of Service: Feb 02, 2025 Billing Provider: LIDIA GIRALDO MD,FELECIA ZAYAS, RES Feb 02, 2025 12:42
--- NOTE | 2025-02-02 13:02 | PROGRESS NOTE ---
Progress Note ID Providers to CC ~ Progress Note Progress Note: awaiting vats on tuesday SHIRA GARCIA MD Feb 02, 2025 13:02
[2025-02-02] MEDS: dextrose 50%-water 50ml dispensing syringe IV PRN (15:07)
[2025-02-02 20:00] VITALS: RESP 17; O2SAT 97
[2025-02-03 07:20] VITALS: RESP 22; O2SAT 97
[2025-02-03 08:18] VITALS: PULSE 76; RESP 18; O2SAT 95
[2025-02-03 11:00] VITALS: BP 146/75; PULSE 90; RESP 18; TEMP 98.1; O2SAT 96
--- NOTE | 2025-02-03 17:59 | PROGRESS NOTE- Residence ---
Progress Note - Resident Providers to CC Resident Creating Document: FELECIA PATEL, RES ~ Antibiotic Timeout Antibiotic Ordered?: No Subjective The patient was seen and examined at bedside today. She has no new complaints. No acute overnight events. Surgery tomorrow. Objective Vital Signs Date Time Temp Pulse Resp B/P (MAP) Pulse Ox O2 Delivery O2 Flow Rate FiO2 02/03/25 09:56 74 02/03/25 08:18 18 95 Room Air* 0 21 02/02/25 11:00 97.6 111/54 (73) Result Diagram: 02/02/25 0624 02/02/25 0748 General: Awake and Alert, no acute distress, on room air HEENT: Conjunctiva pink, Sclera clear, Mucus Membranes moist. Neck: Supple without masses and tenderness. Resp: Unlabored. Lungs clear to auscultation on left hemithorax. Right lower lung tello - diminished breath sounds heard Heart: Regular Rate and rhythm, normal S1 and S2 without murmur, rub or gallop. Abdomen: Soft and non tender no organomegaly Extremities: No cyanosis, clubbing or edema. Skin: Warm and Dry. Coagulation Studies Laboratory Tests Test 01/28/25 06:02 01/28/25 06:59 Activated Partial Thromboplast Time 25 SECONDS (22-32) Prothrombin Time 10.7 SECONDS (9.0-12.0) INR International Normalized Ratio 1.0 INR Coagulation Comments Plan Plan Acute hypoxemic respiratory failure Acute exacerbation of chronic CHF, preserved ejection fraction Large right pleural effusion s/p thoracentesis Patient underwent right thoracentesis with yield of 1150 mL of transudative fluid. Postprocedure x-ray continues to show right pleural effusion with loculations. CT chest with contrast shows possible loculations in the right lung. VATS by Dr. Bliss on Tuesday Continue IV Lasix 40 mg b.i.d. Wean oxygen as tolerated. Patient has been refusing breathing treatments. She does not wheeze anymore. Ordered DuoNebs q.12h scheduled and q.2h PRN. Hypertensive emergency Continue lisinopril 40 mg daily. Started her on carvedilol 3.125 mg b.i.d. Paroxysmal atrial fibrillation Sinus rhythm currently. Rate is controlled, less than 110. Eliquis on hold for surgery. Troponinemia likely secondary to type 2 [place] Troponins mildly elevated and stable. Patient does not have any chest pain. Diabetes mellitus HB A1c 9.8. Blood sugars controlled. Continue 20 units of Lantus b.i.d. along with 15 units fixed dose Humalog plus high-dose sliding scale Humalog. Severe protein malnutrition Hypoalbuminemia Ensure protein shakes. Continue to monitor CMP CVA/TIA Continue atorvastatin 40 mg p.o. daily, Plavix 75 mg Substance use disorder Drug screen positive for amphetamines. Substance use navigator consulted. 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 Code status: Full code DVT prophylaxis: SCDs Diet: Heart healthy diet PT: Home with assist Prognosis: Guarded Disposition: Continue medical management. VATS tomorrow. Felecia Patel MD Internal Medicine Resident, PGY-2 The patient was seen, examined and discussed with the attending physician, Dr. Giraldo. Date of Service: Feb 03, 2025 Billing Provider: LIDIA GIRALDO MD,FELECIA ZAYAS, RES Feb 03, 2025 17:59
[2025-02-03 20:00] VITALS: RESP 21; O2SAT 97
[2025-02-03 21:12] VITALS: PULSE 76; RESP 18; O2SAT 98
[2025-02-03 21:39] VITALS: BP 120/52; PULSE 80; RESP 18; TEMP 98; O2SAT 95
[2025-02-04] VITALS (23 sets, daily range): BP systolic 83–170; BP diastolic 17–81; PULSE 79–88; RESP 12–18; TEMP 97.1–98.1; O2SAT 97–100
[2025-02-04 08:35] LABS: MEAN PLATELET VOLUME 9.0 FL (7.4-10.4); RED CELL DISTRIBUTION WIDTH 15.3 % (11.5-14.5)
[2025-02-04 08:55] LABS: CREATININE 0.85 MG/DL (0.40-0.90); TOTAL CARBON DIOXIDE 31.0 MMOL/L (24-32); eCRCL 56 ML/MIN; eGFR 68 ML/MIN
--- NOTE | 2025-02-04 09:41 | PROGRESS NOTE ---
Progress Note ID Providers to CC ~ Progress Note Progress Note: discussed procedure including risks/benefits/alternatives SHIRA GARCIA MD Feb 04, 2025 09:41
[2025-02-04] MEDS: TALC 4 GM VIAL ***intrapleural administration only IX ONE ×2 (10:25→13:18)
[2025-02-04] MEDS ORDERED: albumin (Human) 5% 250ml BOTTLE IV ONE (11:15)
[2025-02-04] MEDS ORDERED: midazolam 1 mg/ML 2ml injection ONE (11:23)
[2025-02-04] MEDS ORDERED: rocuronium 10mg/ml inj IV ONE (11:57)
[2025-02-04] MEDS ORDERED: propofol inj 20 ML IV ONE (11:57)
[2025-02-04] MEDS ORDERED: LIDOcaine 1%/PF 5ML 10 MG/ML VIAL ONE (11:57)
[2025-02-04] MEDS ORDERED: fentaNYL /PF 50mcg/ml 5ml ampule ONE (11:57)
[2025-02-04] MEDS ORDERED: ondansetron/PF 4mg/2ml inj ONE (12:12)
[2025-02-04] MEDS ORDERED: dexamethasone sod phosphate 4mg/ml inj. ONE (12:12)
[2025-02-04] MEDS ORDERED: fentaNYL/PF 50MCG/1 ML 2ML syringe IV PRN (13:05)
--- NOTE | 2025-02-04 13:41 | OPERATIVE REPORT ---
Operative Report Providers to CC ~ Date of Procedure: Feb 04, 2025 Pre-Operative Diagnosis: recurrent right effusion Post-Operative Diagnosis SAME as PRE-Op Procedure Performed rigjht thoracotomy/decortication/talc pleurodesis/chest tube placement Surgeon: glen mcintyre Anesthesiologist: Nam Sheehan Type of Anesthesia: General Findings: trapped lung Estimated Blood Loss: 100 ml Specimen Removed: SHIRA Daily MD Feb 04, 2025 13:41
[2025-02-04] MEDS ORDERED: metoclopramide 5 mg/ml inj IV PRN (13:50)
[2025-02-04] MEDS ORDERED: FENTANYL-0.9 % NACL/PF 100 ML IV SCH (13:50)
[2025-02-04] MEDS ORDERED: morphine 4 MG/ML inj SYRINge IV PRN ×3 (13:50→14:40)
[2025-02-04] MEDS ORDERED: ondansetron/PF 4mg/2ml inj IV PRN (13:50)
[2025-02-04] MEDS ORDERED: HYDROcodone/acetaminophen 10/325mg tab PO PRN (13:50)
[2025-02-04] MEDS ORDERED: albuterol 2.5 MG/3 ML nebule NEB PRN (13:50)
[2025-02-04] MEDS ORDERED: ePHEDrine 50MG/ML INJ. ONE (14:06)
[2025-02-04] MEDS: propofol 1000mg/100ml bottle 100 ML IV SCH (14:22)
[2025-02-04] MEDS: FENTANYL-0.9 % NACL/PF 100 ML IV SCH (14:32)
--- NOTE | 2025-02-04 14:39 | OPERATIVE REPORT ---
DATE OF SURGERY: 02/04/2025 DICTATING PHYSICIAN: Stephan Bliss MD PREOPERATIVE DIAGNOSIS: Recurrent right-sided effusion, question trapped lung. POSTOPERATIVE DIAGNOSIS: Recurrent right-sided effusion with trapped middle and lower lobe. PROCEDURES PERFORMED: * Right thoracoscopic exploration of pleural space. * Right thoracotomy. * Decortication of the left upper, middle, and lower lobes. * Talc pleurodesis. * Chest tube placement. SURGEON: Stephan Bliss MD COUNTY MANAGER: None. ANESTHESIA: General/ . DRAINS: . INDICATIONS FOR OPERATION: The patient is a 59-year-old female admitted with shortness of breath and a recurrent right pleural effusion. I was reassured to expand post thoracentesis. The patient was taken to surgery for talc pleurodesis. INTRAOPERATIVE FINDINGS: She had a trapped lung, middle and lower lobe, which failed to expand post evacuation of the pleural effusion. The patient required to proceed with thoracotomy and decortication to obtain adequate result. DESCRIPTION OF PROCEDURE: The patient was placed supine on the operating table after general endotracheal anesthesia and placement of an endotracheal tube. The chest was prepped and draped. The patient was placed in the left lateral decubitus position. Incision was made approximately the 6th intercostal space anteriorly. The pleural space was entered after the lung was collapsed. Timeout was performed. Incision was evacuated. This incision was made in the midaxillary line. A scope was placed in the pleural cavity. The patient had trapped middle and lower lobe. Despite attempts at expansion, the lower lobe and middle lobe did not re-expand to facilitate or allow pleurodesis. Decision was made to proceed with a decortication. Right thoracotomy was performed. Fluoroscopic instruments were removed. The chest was entered through the 5th intercostal space. A retractor was placed. The intercostal was divided proximally and distally. The patient had a trapped lung of the middle and lower lobe portion of the upper lobe, but decortication of the lower, middle, and upper lobe was then performed after the inferior pulmonary lobe was taken down. sent to pathology for evaluation. Lungs expanded well post decortication. Cryoablation was performed at 4 levels. Mechanical bridge was then performed. Chest was irrigated with antibiotic-containing solution. A #30 chest tube was then placed, directed apically and posteriorly, respectively. Approximately 3-4 g of talc was instilled in the pleural space in a diffuse fashion. Sutures of #4 fiberwire were placed using a sweet punch. Chest was irrigated with antibiotic containing solution. The was then placed. The lung was re-expanded. Ribs were reapproximated. The chest wall was closed in layers. Skin was closed with a subcuticular stitch. Chest tube was attached to Pleur-evac. The patient was transferred to the ICU in stable condition after placement of and application of the dressings. Stephan Bliss MD TID: [id number] RECEIPT: [id number] KB/JARRETT
[2025-02-04 14:40] LABS: ABG BASE EXCESS 0.6 mmol/L (-2.0-3.0); ABG HCO3 23.6 mmol/L (21.0-28.0); ABG OXYGEN SATURATION 99.7 % (94.0-98.0); ABG PCO2 (T) 32.3 mmHg (32.0-45.0); ABG PH (T) 7.482 (7.350-7.450); ABG PO2 (T) 378.2 mmHg (83.0-108.0); FCOHb 0.7 % (0.5-1.5); FHHb 0.3 % (0.0-5.0); FIO2 100.0 mmHg/%; FMetHb 0.3 % (0.0-1.5); FO2Hb 98.7 % (94.0-98.0); MODE VENT - SIMV; PATIENT TEMPERATURE 36.9; PEEP 8 cm H2O; RESPIRATORY RATE 12 b/min; TIDAL VOLUME 500 mL; TOTAL HEMOGLOBIN 12.0 G/dl (12.0-16.0)
[2025-02-04] MEDS: potassium cl 20mEq in 1/2 NS 1,000 ML IV SCH (15:00)
--- NOTE | 2025-02-04 15:34 | RADIOLOGY REPORT ---
CHEST RADIOGRAPH INDICATION: POST OP TECHNIQUE: Single frontal view of the chest was obtained COMPARISON: DI CHEST,SINGLE VIEW on DOS: 01/30/25, DI CHEST,SINGLE VIEW on DOS: 01/29/25, DI CHEST,SINGLE VIEW on DOS: 01/28/25 FINDINGS: Lines and Tubes: Endotracheal tube terminating about 1 cm above the jessica. Right-sided chest tube terminating over The Right medial upper lung zone. Lungs: Improvement in the right-sided pleural effusion with residual small to moderate right-sided pleural effusion and associated atelectasis. Oval-shaped density overlying the right upper lung zone, new from prior imaging which may be from overlying structures. Left lower lung zone Linear densities. No pneumothorax. Cardiomediastinal contours: Heart size is within normal limits with mild atherosclerotic calcification and uncoiling of the aorta. Bones: No acute osseous abnormality. Mild subcutaneous emphysema of the right chest wall. Surgical clips are noted over the right axilla. IMPRESSION: Interval placement of an endotracheal tube terminating about 1 cm above the jesscia. Recommend pulling back about 2 cm for more optimal positioning. Right-sided chest tube is noted terminating over the Right medial Upper lung zone with interval improvement in the right sided pleural effusion . Residual small to moderate right-sided pleural effusion with associated atelectasis / pneumonia. Left lower lung zone atelectasis.
[2025-02-04] MEDS ORDERED: LISI20TA28 PO (16:54)
[2025-02-04] MEDS ORDERED: APIX5TAB3 PO (16:54)
[2025-02-04] MEDS ORDERED: CLOP75TA34 PO (16:54)
[2025-02-04] MEDS ORDERED: ATOR40TA72 PO (16:54)
[2025-02-04] MEDS ORDERED: INSU100I31 SQ (16:59)
[2025-02-04] MEDS ORDERED: IPRA4AER IH (16:59)
--- NOTE | 2025-02-04 17:44 | PROGRESS NOTE- Residence ---
Progress Note - Resident Providers to CC Resident Creating Document: FELECIA PATEL, RES ~ Antibiotic Timeout Antibiotic Ordered?: Yes Subjective Patient is scheduled for VATS by Dr. Bliss today. No new complaints. She has been NPO after midnight and sugars are stable. Objective Vital Signs Date Time Temp Pulse Resp B/P (MAP) Pulse Ox O2 Delivery O2 Flow Rate FiO2 02/04/25 17:32 12 100 Mechanical Ventilator 35 02/04/25 17:09 87 02/04/25 17:00 98.1 116/59 (78) 02/04/25 09:12 0 Result Diagram: 02/04/25 0809 02/04/25 0809 General: Awake and Alert, no acute distress, on room air HEENT: Conjunctiva pink, Sclera clear, Mucus Membranes moist. Neck: Supple without masses and tenderness. Resp: Unlabored. Lungs clear to auscultation on left hemithorax. Right lower lung tello - diminished breath sounds heard Heart: Regular Rate and rhythm, normal S1 and S2 without murmur, rub or gallop. Abdomen: Soft and non tender no organomegaly Extremities: No cyanosis, clubbing or edema. Skin: Warm and Dry. Coagulation Studies Laboratory Tests Test 01/28/25 06:02 01/28/25 06:59 Activated Partial Thromboplast Time 25 SECONDS (22-32) Prothrombin Time 10.7 SECONDS (9.0-12.0) INR International Normalized Ratio 1.0 INR Coagulation Comments Plan Plan Acute hypoxemic respiratory failure Acute exacerbation of chronic CHF, preserved ejection fraction Large right pleural effusion s/p thoracentesis Right trapped lung Patient underwent right thoracentesis with yield of 1150 mL of transudative fluid. Postprocedure x-ray continues to show right pleural effusion with loculations. CT chest with contrast shows possible loculations in the right lung. VATS by Dr. Bliss today. Continue IV Lasix 40 mg b.i.d. Wean oxygen as tolerated. Patient has been refusing breathing treatments. She does not wheeze anymore. Ordered DuoNebs q.12h scheduled and q.2h PRN. Hypertensive emergency Continue lisinopril 40 mg daily. Started her on carvedilol 3.125 mg b.i.d. Paroxysmal atrial fibrillation Sinus rhythm currently. Rate is controlled, less than 110. Eliquis on hold for surgery. Troponinemia likely secondary to type 2 [place] Troponins mildly elevated and stable. Patient does not have any chest pain. Diabetes mellitus HB A1c 9.8. Blood sugars controlled. Continue 20 units of Lantus b.i.d. along with 15 units fixed dose Humalog plus high-dose sliding scale Humalog. Severe protein malnutrition Hypoalbuminemia Ensure protein shakes. Continue to monitor CMP CVA/TIA Continue atorvastatin 40 mg p.o. daily, Plavix 75 mg Substance use disorder Drug screen positive for amphetamines. Substance use navigator consulted. 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 Code status: Full code DVT prophylaxis: SCDs Diet: Heart healthy diet PT: Home with assist Prognosis: Guarded Disposition: Continue medical management. VATS today. Felecia Patel MD Internal Medicine Resident, PGY-2 The patient was seen, examined and discussed with the attending physician, Dr. Giraldo. Date of Service: Feb 04, 2025 Billing Provider: LIDIA GIRALDO MD,FELECIA ZAYAS, RES Feb 04, 2025 17:44
[2025-02-04] MEDS ORDERED: midazolam 100mg in NS 100ml 100 ML IV PRN (19:20)
[2025-02-04] MEDS: albumin (Human) 5% 250ml 500 ML IV ONE (22:22)
[2025-02-04] MEDS: albumin (Human) 5% 250ml 250 ML IV ONE (22:22)
--- NOTE | 2025-02-04 22:48 | CONSULTATION ---
DATE OF CONSULTATION: 01/31/2025 DICTATING PHYSICIAN: Stephan Bliss MD REASON FOR CONSULTATION: Possible talc pleurodesis. HISTORY OF PRESENT ILLNESS: The patient is a 59-year-old female admitted on 01/28 with shortness of breath and had a large right-sided effusion. She underwent thoracentesis. Pleural studies revealed a transudative process. The patient had multiple thoracenteses on the right-hand side. Surgical evaluation now requested for possible pleurodesis. PAST MEDICAL HISTORY: Notable for cerebrovascular disease, atrial fibrillation, CHF, hypertension, asthma, COPD, hepatitis C, diabetes, fibromyalgia. PAST SURGICAL HISTORY: Includes 3 C sections . HOME MEDICATIONS: Include Plavix, Lasix, Protonix, Jardiance, lisinopril, , Combivent, metoprolol, , Lipitor, amiodarone. ALLERGIES: Include PENICILLIN. SOCIAL HISTORY: The patient is homeless. REVIEW OF SYSTEMS: See H and P. PHYSICAL EXAMINATION: GENERAL: A well-nourished female, in minimal distress. VITAL SIGNS: Unremarkable. HEART: Regular rate and rhythm. LUNGS: Clear to auscultation. ABDOMEN: Benign. EXTREMITIES: No pedal edema. LABORATORY DATA: Labs included WBC of 12, hematocrit 36, platelet count 137. Chemistries: BUN and creatinine 20 and 0.6. Pleural studies reveal a total protein less than 2, LDH 74, pH of 7.518. No pleural cytology available. IMAGING STUDIES: CT of the chest from 01/30, there is a persistent right-sided effusion. Some consolidation is present in the right middle lobe as well as the lower lobe. IMPRESSION: * Recurrent right-sided effusion, must be a transudate in etiology. * History of congestive heart failure. * History of chronic obstructive pulmonary disease. * History of atrial fibrillation. * History of vascular disease. * Hypertension. * Hepatitis C. * Diabetes. RECOMMENDATIONS: He will have talc pleurodesis. The patient may need a low resection if the middle lobe mass would be persistent in the operating room. Stephan Bliss MD TID: [id number] RECEIPT: [id number] [facility]
[2025-02-04] MEDS: insulin regular, human U-100 10ml vial - multi-dose SQ SCH (23:06)
[2025-02-05] VITALS (32 sets, daily range): BP systolic 79–164; BP diastolic 30–74; PULSE 77–93; RESP 10–23; O2SAT 96–100
[2025-02-05] MEDS: albumin (Human) 5% 250ml 250 ML IV ONE
[2025-02-05 02:53] LABS: MEAN PLATELET VOLUME 9.5 FL (7.4-10.4); RED CELL DISTRIBUTION WIDTH 14.9 % (11.5-14.5)
[2025-02-05 03:04] LABS: CREATININE 1.26 MG/DL (0.40-0.90); PHOSPHORUS 5.2 MG/DL (2.3-4.5); TOTAL CARBON DIOXIDE 28.3 MMOL/L (24-32); eCRCL 38 ML/MIN; eGFR 43 ML/MIN
[2025-02-05 04:27] LABS: ABG BASE EXCESS 3.0 mmol/L (-2.0-3.0); ABG HCO3 27.3 mmol/L (21.0-28.0); ABG OXYGEN SATURATION 97.7 % (94.0-98.0); ABG PCO2 (T) 41.6 mmHg (32.0-45.0); ABG PH (T) 7.437 (7.350-7.450); ABG PO2 (T) 105.3 mmHg (83.0-108.0); FCOHb 0.9 % (0.5-1.5); FHHb 2.3 % (0.0-5.0); FIO2 30.0 mmHg/%; FMetHb 0.3 % (0.0-1.5); FO2Hb 96.5 % (94.0-98.0); MODE VENT - AC; PATIENT TEMPERATURE 37.6; TOTAL HEMOGLOBIN 11.3 G/dl (12.0-16.0)
--- NOTE | 2025-02-05 05:53 | RADIOLOGY REPORT ---
CHEST RADIOGRAPH Indication: POST OP Technique: Single frontal view of the chest was obtained COMPARISON: DI CHEST,SINGLE VIEW on DOS: 02/04/25, DI CHEST,SINGLE VIEW on DOS: 01/30/25, DI CHEST,SINGLE VIEW on DOS: 01/29/25, DI CHEST,SINGLE VIEW on DOS: 01/28/25, DI CHEST,SINGLE VIEW on DOS: 12/13/24 FINDINGS: Lines and Tubes: Endotracheal tube and enteric catheter in satisfactory position. Lungs: Increased interstital prominence. This may represent pulmonary vascular congestion and/or viral pneumonia. Pleura: No effusion. No pneumothorax. Cardiomediastinal contours: Unremarkable Bones: Unremarkable IMPRESSION: Lines and tubes in satisfactory position. Increased pulmonary vascular congestion and/or viral pneumonia.
[2025-02-05] MEDS: INSULIN LISPRO 100 UNIT/ML INSULN.PEN MULTI-DOSE SQ SCH (09:33)
[2025-02-05] MEDS: mineral oil/petrolatum ophthal oint EACHEYE SCH (14:00)
--- NOTE | 2025-02-05 16:08 | PROGRESS NOTE ---
Progress Note ID Providers to CC ~ Progress Note Progress Note: intubated/vss/lungs-smal leak/cxr noted/labs noted a/p 1. s/p decortication-doing well/wean vent SHIRA GARCIA MD Feb 05, 2025 16:08
--- NOTE | 2025-02-05 17:05 | PROGRESS NOTE- Residence ---
Progress Note - Resident Providers to CC Resident Creating Document: FELECIA PATEL, RES ~ Antibiotic Timeout Antibiotic Ordered?: Yes Subjective The patient was seen and examined at bedside today. She underwent right thoracotomy with decortication of left upper, middle and lower lobes. She is stable today, intubated and mechanically ventilated on 30% FiO2 and PEEP of 8. Objective Vital Signs Date Time Temp Pulse Resp B/P (MAP) Pulse Ox O2 Delivery O2 Flow Rate FiO2 02/05/25 15:55 12 30 02/05/25 15:00 99.5 78 94/53 (67) 99 Mechanical Ventilator 02/04/25 09:12 0 Result Diagram: 02/05/2521402/05/25214 General: Intubated and sedated HEENT: Conjunctiva pink, Sclera clear, Mucus Membranes moist. Neck: Supple without masses and tenderness. Resp: bilateral diminished breath sounds heard, right chest tube present Heart: Regular Rate and rhythm, normal S1 and S2 without murmur, rub or gallop. Abdomen: Soft and non tender no organomegaly Extremities: No cyanosis, clubbing or edema. Skin: Warm and Dry. Coagulation Studies Laboratory Tests Test 01/28/25 06:02 01/28/25 06:59 Activated Partial Thromboplast Time 25 SECONDS (22-32) Prothrombin Time 10.7 SECONDS (9.0-12.0) INR International Normalized Ratio 1.0 INR Coagulation Comments Plan Plan Acute hypoxemic respiratory failure Acute exacerbation of chronic CHF, preserved ejection fraction Large right pleural effusion s/p thoracentesis, 01/29/2025 Right trapped lung S/p right thoracotomy and decortication of left lung, talc pleurodesis and chest tube placement, 02/04/2025 The patient underwent right thoracoscopic exploration of pleural space with right thoracotomy, decortication of left upper, middle and lower lobes, talc pleurodesis and chest tube placement by Dr. Bliss on 02/04/2025. She is currently in the ICU, intubated on 30% FiO2 and PEEP of eight. Patient underwent right thoracentesis with yield of 1150 mL of transudative fluid on 01/29/2025. Postprocedure x-ray showed right pleural effusion with loculations. CT chest with contrast showed possible loculations in the right lung. Continue IV Lasix 40 mg b.i.d. Hypertensive emergency Continue lisinopril 40 mg daily and carvedilol 3.125 mg b.i.d. Paroxysmal atrial fibrillation Sinus rhythm currently. Rate is controlled, less than 110. Eliquis on hold after surgery. Troponinemia likely secondary to type 2 [place] Continue to monitor. Diabetes mellitus HB A1c 9.8. Blood sugars controlled. Continue 20 units of Lantus b.i.d. along with 15 units fixed dose Humalog plus high-dose sliding scale Humalog. Severe protein malnutrition Hypoalbuminemia Ensure protein shakes after extubation. Continue to monitor CMP. CVA/TIA Continue atorvastatin 40 mg p.o. daily, Plavix 75 mg. Substance use disorder Drug screen positive for amphetamines. Substance use navigator consulted. 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 Code status: Full code DVT prophylaxis: SCDs Diet: Heart healthy diet PT: Home with assist, re-evaluation after surgery needed Prognosis: Guarded Disposition: Continue management as per the surgeon in ICU. Felecia Patel MD Internal Medicine Resident, PGY-2 The patient was seen, examined and discussed with the attending physician, Dr. Giraldo. Date of Service: Feb 05, 2025 Billing Provider: LIDIA GIRALDO MD,FELECIA ZAYAS, RES Feb 05, 2025 17:05
[2025-02-05 19:21] LABS: ABG BASE EXCESS 4.6 mmol/L (-2.0-3.0); ABG HCO3 28.8 mmol/L (21.0-28.0); ABG OXYGEN SATURATION 97.7 % (94.0-98.0); ABG PCO2 (T) 42.0 mmHg (32.0-45.0); ABG PH (T) 7.456 (7.350-7.450); ABG PO2 (T) 103.5 mmHg (83.0-108.0); FCOHb 0.9 % (0.5-1.5); FHHb 2.3 % (0.0-5.0); FIO2 30.0 mmHg/%; FMetHb 0.3 % (0.0-1.5); FO2Hb 96.5 % (94.0-98.0); MODE spont; PATIENT TEMPERATURE 37.6; PEEP 5 cm H2O; TOTAL HEMOGLOBIN 11.4 G/dl (12.0-16.0)
[2025-02-05] MEDS: Permethrin 1% 59ml topical rinse TP ONE (21:42)
[2025-02-05] MEDS: HYDROmorph/NS 0.2 mg/ml PCA 100 ML IV SCH (22:31)
[2025-02-06] VITALS (25 sets, daily range): BP systolic 86–142; BP diastolic 37–60; PULSE 68–83; RESP 12–20; TEMP 97.2–97.6; O2SAT 96–100
--- NOTE | 2025-02-06 06:00 | RADIOLOGY REPORT ---
CHEST RADIOGRAPH Indication: POST OP Technique: Single frontal view of the chest was obtained COMPARISON: DI CHEST,SINGLE VIEW on DOS: 02/05/25, DI CHEST,SINGLE VIEW on DOS: 02/04/25, DI CHEST,SINGLE VIEW on DOS: 01/30/25, DI CHEST,SINGLE VIEW on DOS: 01/29/25, DI CHEST,SINGLE VIEW on DOS: 01/28/25 FINDINGS: Lines and Tubes: 2 right chest tubes in-situ. Interval extubation. Lungs: Pulmonary vascular congestion. Pleura: No effusion. No pneumothorax. Cardiomediastinal contours: Cardiomegaly. Bones: Unremarkable IMPRESSION: Interval extubation. Otherwise no change compared to prior exam.
[2025-02-06 06:26] LABS: MEAN PLATELET VOLUME 9.6 FL (7.4-10.4); RED CELL DISTRIBUTION WIDTH 15.3 % (11.5-14.5)
[2025-02-06 06:40] LABS: CREATININE 1.08 MG/DL (0.40-0.90); PHOSPHORUS 4.9 MG/DL (2.3-4.5); TOTAL CARBON DIOXIDE 29.4 MMOL/L (24-32); eCRCL 44 ML/MIN; eGFR 52 ML/MIN
[2025-02-06] MEDS: INSULIN LISPRO 100 UNIT/ML INSULN.PEN MULTI-DOSE SQ SCH (08:44)
--- NOTE | 2025-02-06 11:44 | PROGRESS NOTE- Residence ---
Progress Note - Resident Providers to CC Resident Creating Document: FELECIA PATEL, RES ~ Antibiotic Timeout Antibiotic Ordered?: Yes Subjective The patient was seen and examined at bedside today. She was extubated last night and is currently doing well on 2L of O2 through nasal cannula. She also has the right chest tube draining serosanguinous fluid. She complained of pain in her chest but has dilaudid NURSE REVIEWER pump. Nurse instructed her how to use it. Objective Vital Signs Date Time Temp Pulse Resp B/P (MAP) Pulse Ox O2 Delivery O2 Flow Rate FiO2 02/06/25 11:00 12 02/06/25 08:41 81 02/06/25 08:36 Nasal Cannula 2.0 02/06/25 08:28 98 28 02/06/25 06:00 99.7 105/39 (61) Result Diagram: 02/06/2552102/06/25521 General: Awake and alert, not in acute distress, on 2L of O2 through nasal cannula HEENT: Conjunctiva pink, Sclera clear, Mucus Membranes moist. Neck: Supple without masses and tenderness. Resp: bilateral diminished breath sounds heard, right chest tube present draining serosanguinous fluid Heart: Regular Rate and rhythm, normal S1 and S2 without murmur, rub or gallop. Abdomen: Soft and non tender no organomegaly Extremities: No cyanosis, clubbing or edema. Skin: Warm and Dry. Coagulation Studies Laboratory Tests Test 01/28/25 06:02 01/28/25 06:59 Activated Partial Thromboplast Time 25 SECONDS (22-32) Prothrombin Time 10.7 SECONDS (9.0-12.0) INR International Normalized Ratio 1.0 INR Coagulation Comments Plan Plan Acute hypoxemic respiratory failure Acute exacerbation of chronic CHF, preserved ejection fraction Large right pleural effusion s/p thoracentesis, 01/29/2025 Right trapped lung S/p right thoracotomy and decortication of left lung, talc pleurodesis and chest tube placement, 02/04/2025 The patient underwent right thoracoscopic exploration of pleural space with right thoracotomy, decortication of left upper, middle and lower lobes, talc pleurodesis and chest tube placement by Dr. Bliss on 02/04/2025. She is currently in the ICU, was successfully extubated last night. Currently on dilaudid NURSE REVIEWER pump for pain management. Patient underwent right thoracentesis with yield of 1150 mL of transudative fluid on 01/29/2025. Postprocedure x-ray showed right pleural effusion with loculations. CT chest with contrast showed possible loculations in the right lung. Continue IV Lasix 40 mg b.i.d. and IV clindamycin. Hypertensive emergency Continue lisinopril 40 mg daily and carvedilol 3.125 mg b.i.d. Paroxysmal atrial fibrillation Sinus rhythm currently. Rate is controlled, less than 110. Eliquis on hold after surgery. Troponinemia likely secondary to type 2 [place] Continue to monitor. Diabetes mellitus HB A1c 9.8. Blood sugars controlled. Continue 20 units of Lantus b.i.d. along with 15 units fixed dose Humalog plus high-dose sliding scale Humalog. Severe protein malnutrition Hypoalbuminemia Currently NPO as per the surgeon. Ensure protein shakes. Continue to monitor CMP. CVA/TIA Continue atorvastatin 40 mg p.o. daily, Plavix 75 mg. Substance use disorder Drug screen positive for amphetamines. Substance use navigator consulted. 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 Code status: Full code DVT prophylaxis: SCDs Diet: Heart healthy diet PT: Home with assist, re-evaluation after surgery needed Prognosis: Guarded Disposition: Continue management as per the surgeon in ICU. Felecia Patel MD Internal Medicine Resident, PGY-2 The patient was seen, examined and discussed with the attending physician, Dr. Giraldo. Date of Service: Feb 06, 2025 Billing Provider: LIDIA GIRALDO MD,FELECIA ZAYAS, RES Feb 06, 2025 11:44
--- NOTE | 2025-02-06 14:35 | PROGRESS NOTE ---
Progress Note ID Providers to CC ~ Progress Note Progress Note: complains of pain/vss/lungs-small leak/cxr noted/labs noted a/p 1. s/p decortication-doing well/to pcu-pt SHIRA GARCIA MD Feb 06, 2025 14:35
[2025-02-06] MEDS: HYDROmorph/NS 0.2 mg/ml PCA 100 ML IV SCH (16:45)
[2025-02-07] VITALS (12 sets, daily range): BP systolic 110–123; BP diastolic 53–74; PULSE 73–86; RESP 16–19; TEMP 97.4–98.4; O2SAT 97–99
[2025-02-07 05:03] LABS: MEAN PLATELET VOLUME 9.7 FL (7.4-10.4); RED CELL DISTRIBUTION WIDTH 15.0 % (11.5-14.5)
[2025-02-07 05:17] LABS: CREATININE 1.02 MG/DL (0.40-0.90); PHOSPHORUS 4.4 MG/DL (2.3-4.5); TOTAL CARBON DIOXIDE 30.7 MMOL/L (24-32); eCRCL 47 ML/MIN; eGFR 55 ML/MIN
--- NOTE | 2025-02-07 05:59 | RADIOLOGY REPORT ---
CHEST RADIOGRAPH Indication: POST OP Technique: Single frontal view of the chest was obtained COMPARISON: DI CHEST,SINGLE VIEW on DOS: 02/06/25, DI CHEST,SINGLE VIEW on DOS: 02/05/25, DI CHEST,SINGLE VIEW on DOS: 02/04/25, DI CHEST,SINGLE VIEW on DOS: 01/30/25, DI CHEST,SINGLE VIEW on DOS: 01/29/25 FINDINGS: Lines and Tubes: Right chest tubes in satisfactory position. Interval extubation. Lungs: Unchanged increased interstitial prominence. This may represent pulmonary vascular congestion and/or viral pneumonia. Pleura: Trace left pleural effusion. No pneumothorax. Cardiomediastinal contours: Cardiomegaly. Bones: Unremarkable IMPRESSION: Interval extubation. Unchanged pulmonary vascular congestion and/or viral pneumonia.
--- NOTE | 2025-02-07 10:10 | PROGRESS NOTE- Residence ---
Progress Note - Resident Providers to CC Resident Creating Document: FELECIA PATEL, RES ~ Antibiotic Timeout Antibiotic Ordered?: Yes Subjective The patient was seen and examined at bedside today in PCU. She complains of pain in her right hip. Has Dilaudid ENDODONTIC ASSISTANT pump. Still has right chest tube draining serosanguineous fluid. Objective Vital Signs Date Time Temp Pulse Resp B/P (MAP) Pulse Ox O2 Delivery O2 Flow Rate FiO2 02/07/25 09:04 80 16 Nasal Cannula 2.0 02/07/25 08:57 97 28 02/07/25 06:00 97.4 116/54 (74) Result Diagram: 02/07/254 02/07/25443 General: Awake and alert, not in acute distress, on 2L of O2 through nasal cannula HEENT: Conjunctiva pink, Sclera clear, Mucus Membranes moist. Neck: Supple without masses and tenderness. Resp: bilateral diminished breath sounds heard, right chest tube present draining serosanguinous fluid Heart: Regular Rate and rhythm, normal S1 and S2 without murmur, rub or gallop. Abdomen: Soft and non tender no organomegaly Extremities: No cyanosis, clubbing or edema. Skin: Warm and Dry. Coagulation Studies Laboratory Tests Test 01/28/25 06:02 01/28/25 06:59 Activated Partial Thromboplast Time 25 SECONDS (22-32) Prothrombin Time 10.7 SECONDS (9.0-12.0) INR International Normalized Ratio 1.0 INR Coagulation Comments Plan Plan Acute hypoxemic respiratory failure Acute exacerbation of chronic CHF, preserved ejection fraction Large right pleural effusion s/p thoracentesis, 01/29/2025 Right trapped lung S/p right thoracotomy and decortication of left lung, talc pleurodesis and chest tube placement, 02/04/2025 The patient underwent right thoracoscopic exploration of pleural space with right thoracotomy, decortication of left upper, middle and lower lobes, talc pleurodesis and chest tube placement by Dr. Bliss on 02/04/2025. She has transferred to the floors yesterday. She has right chest tube draining serosanguineous fluid. Output 280 mL in the last 24 hours. Currently on 2 L of oxygen through nasal cannula. Dilaudid ENDODONTIC ASSISTANT pump for pain management. Continue IV Lasix 40 mg b.i.d. and IV clindamycin. Patient underwent right thoracentesis with yield of 1150 mL of transudative fluid on 01/29/2025. Postprocedure x-ray showed right pleural effusion with loculations. CT chest with contrast showed possible loculations in the right lung. Hypertensive emergency Continue lisinopril 40 mg daily and carvedilol 3.125 mg b.i.d. Paroxysmal atrial fibrillation Sinus rhythm currently. Rate is controlled, less than 110. Eliquis on hold after surgery. Troponinemia likely secondary to type 2 [place] Continue to monitor. Diabetes mellitus HB A1c 9.8. Blood sugars controlled. Continue 20 units of Lantus b.i.d. along with 15 units fixed dose Humalog plus high-dose sliding scale Humalog. Severe protein malnutrition Hypoalbuminemia. Ensure protein shakes. Continue to monitor CMP. CVA/TIA Continue atorvastatin 40 mg p.o. daily, Plavix 75 mg. Substance use disorder Drug screen positive for amphetamines. Substance use navigator consulted. 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 Code status: Full code DVT prophylaxis: SCDs Diet: Carb controlled diet PT: Home with barriers Prognosis: Guarded Disposition: Continue care in the medical gómez. Monitor chest tube output. Management as per surgeon. Felecia Patel MD Internal Medicine Resident, PGY-2 The patient was seen, examined and discussed with the attending physician, Dr. Giraldo. Date of Service: Feb 07, 2025 Billing Provider: LIDIA GIRALDO MD,FELECIA ZAYAS, RES Feb 07, 2025 10:10
--- NOTE | 2025-02-07 20:42 | PROGRESS NOTE ---
Progress Note ID Providers to CC ~ Progress Note Progress Note: doing well/trial of waterseal SHIRA GARCIA MD Feb 07, 2025 20:42
[2025-02-08] VITALS (9 sets, daily range): BP systolic 104–144; BP diastolic 47–78; PULSE 77–83; RESP 13–25; TEMP 97–98.1; O2SAT 96–100
[2025-02-08 07:35] LABS: MEAN PLATELET VOLUME 9.3 FL (7.4-10.4); RED CELL DISTRIBUTION WIDTH 14.7 % (11.5-14.5)
[2025-02-08 07:53] LABS: CREATININE 1.12 MG/DL (0.40-0.90); PHOSPHORUS 3.4 MG/DL (2.3-4.5); TOTAL CARBON DIOXIDE 31.9 MMOL/L (24-32); eCRCL 43 ML/MIN; eGFR 50 ML/MIN
--- NOTE | 2025-02-08 09:19 | RADIOLOGY REPORT ---
CHEST RADIOGRAPH INDICATION: POST OP TECHNIQUE: DI CHEST,SINGLE VIEW COMPARISON: 02/07/2025 FINDINGS: Right chest tube tips projects over the right lung base, medial right mid/ upper lung. Right lateral chest wall soft tissue emphysema. The cardiac silhouette is enlarged. The lungs demonstrate bilateral patchy airspace opacities. The pulmonary vasculature is prominent. Small bilateral pleural effusions. There is no pneumothorax. IMPRESSION: Cardiomegaly with pulmonary vascular congestion and bilateral patchy airspace opacities., similar to previous examination.
--- NOTE | 2025-02-08 13:34 | PROGRESS NOTE ---
Progress Note ID Providers to CC ~ Progress Note Progress Note: pain improving/vss/lungs-no leak-output noted/cxr negative a/p 1. s/p decortication-doing well/ct out in 1-2 days SHIRA GARCIA MD Feb 08, 2025 13:34
--- NOTE | 2025-02-08 17:46 | PROGRESS NOTE- Residence ---
Progress Note - Resident Providers to CC Resident Creating Document: HARITHA CORADO RES ~ Antibiotic Timeout Antibiotic Ordered?: Yes Subjective The patient was seen and examined at bedside today in PCU. Denied any new complaint, chest tube is on water sealed trial, 120 mL serosanguineous output Objective Vital Signs Date Time Temp Pulse Resp B/P (MAP) Pulse Ox O2 Delivery O2 Flow Rate FiO2 02/08/25 17:00 97.7 83 18 104/47 (66) 99 Nasal Cannula 2.0 02/08/25 08:18 28 Result Diagram: 02/08/25 0702/08/25 07 General: Awake and alert, not in acute distress HEENT: Conjunctiva pink, Sclera clear, Mucus Membranes moist. Neck: Supple without masses and tenderness. Resp: bilateral diminished breath sounds heard, right chest tube present draining serosanguinous fluid Heart: Regular Rate and rhythm, normal S1 and S2 Abdomen: Soft and non tender Extremities: No cyanosis, clubbing or edema. Skin: Warm and Dry. Coagulation Studies Laboratory Tests Test 01/28/25 06:02 01/28/25 06:59 Activated Partial Thromboplast Time 25 SECONDS (22-32) Prothrombin Time 10.7 SECONDS (9.0-12.0) INR International Normalized Ratio 1.0 INR Coagulation Comments Plan Plan Acute hypoxemic respiratory failure Acute exacerbation of chronic CHF, preserved ejection fraction Large right pleural effusion s/p thoracentesis, 01/29/2025 The patient underwent right thoracoscopic exploration of pleural space with right thoracotomy, decortication of left upper, middle and lower lobes, talc pleurodesis and chest tube placement by Dr. Bliss on 02/04/2025. 12 in Chest x-ray: Cardiomegaly with pulmonary vascular congestion and bilateral patchy airspace opacities., similar to previous examination. She has right chest tube draining serosanguineous fluid. Output 120 mL in the last 24 hours., on water seal trial Dilaudid DETASSELING CREW SUPERVISOR pump for pain management. Continue IV Lasix 40 mg b.i.d. and IV clindamycin. Dr. Bliss is managing chest tube Hypertensive emergency: Resolved Continue lisinopril 40 mg daily and carvedilol 3.125 mg b.i.d. Paroxysmal atrial fibrillation Sinus rhythm currently. Rate is controlled, less than 110. Eliquis on hold Troponinemia likely secondary to type 2 [place] Continue to monitor. Diabetes mellitus HB A1c 9.8. Blood sugars controlled. Continue 20 units of Lantus b.i.d. along with 15 units fixed dose Humalog plus high-dose sliding scale Humalog. Severe protein malnutrition Hypoalbuminemia. Ensure protein shakes. Continue to monitor CMP. CVA/TIA Continue atorvastatin 40 mg p.o. daily, Plavix 75 mg. Substance use disorder Drug screen positive for amphetamines. Substance use navigator consulted. 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 Code status: Full code DVT prophylaxis: SCDs Diet: Carb controlled diet PT: Home with barriers Prognosis: Guarded Disposition: Continue care in the medical gómez. Monitor chest tube output. Management as per surgeon. Haritha Corado MD Internal Medicine Resident, PGY-3 The patient was seen, examined and discussed with the attending physician, Dr. Giraldo. Date of Service: Feb 08, 2025 Billing Provider: LIDIA GIRALDO MD, ELAHE, RES Feb 08, 2025 17:46
[2025-02-09] VITALS (8 sets, daily range): BP systolic 104–143; BP diastolic 48–77; PULSE 71–78; RESP 14–22; TEMP 97–97.9; O2SAT 94–100
--- NOTE | 2025-02-09 06:30 | RADIOLOGY REPORT ---
EXAM: DI CHEST,SINGLE VIEW HISTORY: POST OP COMPARISON: DI CHEST,SINGLE VIEW on DOS: 02/08/25, DI CHEST,SINGLE VIEW on DOS: 02/07/25, DI CHEST,SINGLE VIEW on DOS: 02/06/25, DI CHEST,SINGLE VIEW on DOS: 02/05/25, DI CHEST,SINGLE VIEW on DOS: 02/04/25, CT scan of the chest dated 01/30/2025. TECHNIQUE: Portable semi-erect AP view of the chest was performed. FINDINGS: 2 right-sided chest tubes are re-identified in the mid to lower chest, with small residual right pneumothorax measuring 2.5 mm in the right lung apex. There is mild atelectasis in the right mid to lower lung and left lung base. No left pneumothorax. There is right chest wall subcutaneous emphysema. The heart is not enlarged. IMPRESSION: 1. 2 right sided thoracostomy tubes re-identified with small residual right apical pneumothorax and right chest wall subcutaneous emphysema. 2. Atelectasis in the right mid to lower lung and left lung base.
[2025-02-09 08:28] LABS: MEAN PLATELET VOLUME 9.4 FL (7.4-10.4); RED CELL DISTRIBUTION WIDTH 15.5 % (11.5-14.5)
[2025-02-09 08:38] LABS: CREATININE 0.95 MG/DL (0.40-0.90); PHOSPHORUS 3.6 MG/DL (2.3-4.5); TOTAL CARBON DIOXIDE 31.3 MMOL/L (24-32); eCRCL 50 ML/MIN; eGFR 60 ML/MIN
--- NOTE | 2025-02-09 16:36 | PROGRESS NOTE ---
Progress Note Dictate Providers to CC CC: VICKEY LAURA MD ~ Progress Note: Subsequent surgical care on a 59-year-old woman who is postoperative day 5. Status post right thoracotomy with decortication and pleurodesis Covering for Dr. Stephan Bliss over the next several days 400 cc output from the chest tube with small air leak with cough Continue chest tube for now I will continue to follow in the absence of the operating thoracic surgeon. Antibiotic Ordered?: Yes Objective Vitals Vital Signs Date Time Temp Pulse Resp B/P (MAP) Pulse Ox O2 Delivery O2 Flow Rate FiO2 02/09/25 15:00 14 02/09/25 08:30 72 02/09/25 02:00 97.9 135/66 (89) 97 Nasal Cannula 2.0 02/08/25 20:00 28 Lab Results: 02/09/25 0711 02/09/25 0711 Coagulation Studies Laboratory Tests Test 01/28/25 06:02 01/28/25 06:59 Activated Partial Thromboplast Time 25 SECONDS (22-32) Prothrombin Time 10.7 SECONDS (9.0-12.0) INR International Normalized Ratio 1.0 INR Coagulation Comments VICKEY LAURA MD Feb 09, 2025 16:36
--- NOTE | 2025-02-09 18:44 | PROGRESS NOTE- Residence ---
Progress Note - Resident Providers to CC Resident Creating Document: FELECIA PATEL, RES ~ Antibiotic Timeout Antibiotic Ordered?: Yes Subjective The patient was seen and examined at bedside today in PCU. She wanted to get a hold of her and daughter. Her 's phone is out of order. He has seen her before the surgery but has not come in after the surgery. Her daughter is not answering her phone. Patient forgot her phone pass code. Objective Vital Signs Date Time Temp Pulse Resp B/P (MAP) Pulse Ox O2 Delivery O2 Flow Rate FiO2 02/09/25 15:00 14 02/09/25 08:30 72 02/09/25 08:00 97 Nasal Cannula 2.0 28 02/09/25 02:00 97.9 135/66 (89) Result Diagram: 02/09/25 0711 02/09/25 0711 General: Awake and alert, not in acute distress, on 2L of O2 through nasal cannula HEENT: Conjunctiva pink, Sclera clear, Mucus Membranes moist. Neck: Supple without masses and tenderness. Resp: bilateral diminished breath sounds heard, right chest tube present draining serosanguinous fluid Heart: Regular Rate and rhythm, normal S1 and S2 without murmur, rub or gallop. Abdomen: Soft and non tender no organomegaly Extremities: No cyanosis, clubbing or edema. Skin: Warm and Dry. Coagulation Studies Laboratory Tests Test 01/28/25 06:02 01/28/25 06:59 Activated Partial Thromboplast Time 25 SECONDS (22-32) Prothrombin Time 10.7 SECONDS (9.0-12.0) INR International Normalized Ratio 1.0 INR Coagulation Comments Plan Plan Acute hypoxemic respiratory failure, improved Acute exacerbation of chronic CHF, preserved ejection fraction Large right pleural effusion s/p thoracentesis, 01/29/2025 Right trapped lung S/p right thoracotomy and decortication of left lung, talc pleurodesis and chest tube placement, 02/04/2025 The patient underwent right thoracoscopic exploration of pleural space with right thoracotomy, decortication of left upper, middle and lower lobes, talc pleurodesis and chest tube placement by Dr. Bliss on 02/04/2025. She has right chest tube draining serosanguineous fluid. Output 400 mL in the last 24 hours. Currently on 2 L of oxygen through nasal cannula. Dilaudid CUSTOMER SERVICE RECEPTIONIST pump for pain management. Continue IV Lasix 40 mg b.i.d. and IV clindamycin. Patient underwent right thoracentesis with yield of 1150 mL of transudative fluid on 01/29/2025. Postprocedure x-ray showed right pleural effusion with loculations. CT chest with contrast showed possible loculations in the right lung. Hypertensive emergency, resolved Continue lisinopril 40 mg daily and carvedilol 3.125 mg b.i.d. Paroxysmal atrial fibrillation Sinus rhythm currently. Rate is controlled, less than 110. Eliquis on hold after surgery. Troponinemia likely secondary to type 2 [place] Continue to monitor. Diabetes mellitus HB A1c 9.8. Blood sugars controlled. Continue 20 units of Lantus b.i.d. along with 15 units fixed dose Humalog plus high-dose sliding scale Humalog. Severe protein malnutrition Hypoalbuminemia. Ensure protein shakes. Continue to monitor CMP. CVA/TIA Continue atorvastatin 40 mg p.o. daily, Plavix 75 mg. Substance use disorder Drug screen positive for amphetamines. Substance use navigator consulted. 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 Code status: Full code DVT prophylaxis: SCDs Diet: Carb controlled diet PT: Home with barriers Prognosis: Guarded Disposition: Continue care in the medical gómez. Monitor chest tube output. Management as per surgeon. Felecia Patel MD Internal Medicine Resident, PGY-2 The patient was seen, examined and discussed with the attending physician, Dr. Giraldo. Date of Service: Feb 09, 2025 Billing Provider: LIDIA GIRALDO MD,FELECIA ZAYAS, RES Feb 09, 2025 18:44
[2025-02-09] MEDS: ondansetron/PF 4mg/2ml inj IV PRN (23:13)
[2025-02-10] VITALS (9 sets, daily range): BP systolic 91–107; BP diastolic 36–56; PULSE 71–85; RESP 12–22; TEMP 97.2–98.6; O2SAT 93–99
[2025-02-10 07:17] LABS: MEAN PLATELET VOLUME 9.3 FL (7.4-10.4); RED CELL DISTRIBUTION WIDTH 15.2 % (11.5-14.5)
[2025-02-10 07:51] LABS: CREATININE 1.13 MG/DL (0.40-0.90); PHOSPHORUS 4.4 MG/DL (2.3-4.5); TOTAL CARBON DIOXIDE 30.5 MMOL/L (24-32); eCRCL 42 ML/MIN; eGFR 49 ML/MIN
--- NOTE | 2025-02-10 08:12 | RADIOLOGY REPORT ---
CHEST RADIOGRAPH Indication: Pain Technique: Single frontal view of the chest was obtained COMPARISON: DI CHEST,SINGLE VIEW on DOS: 02/09/25, DI CHEST,SINGLE VIEW on DOS: 02/08/25, DI CHEST,SINGLE VIEW on DOS: 02/07/25, DI CHEST,SINGLE VIEW on DOS: 02/06/25, DI CHEST,SINGLE VIEW on DOS: 02/05/25 FINDINGS: Lines and Tubes: Right chest tubes in satisfactory position. Lungs: Left basilar subsegmental atelectasis. Pleura: Subcutaneous emphysema along the right chest wall. No effusion. No pneumothorax. Cardiomediastinal contours: Cardiomegaly. Bones: Unremarkable IMPRESSION: Right chest tubes in satisfactory position. No appreciable pneumothorax.
[2025-02-10] MEDS: PCA WASTE DOCUMENTATION 1 MG ML MC SCH (12:28)
--- NOTE | 2025-02-10 13:17 | PROGRESS NOTE ---
Progress Note Dictate Providers to CC CC: VICKEY LAURA MD ~ Progress Note: Subsequent surgical care on a 59-year-old woman who is postoperative day 6, Status post right thoracotomy with decortication and pleurodesis Covering for Dr. Stephan Bliss over the next several days Minimal output from the chest tube with no air leak Chest x-ray shows no pneumothorax on water seal Chest tube removed Discontinue Glass catheter Eliquis restarted Discontinue antibiotics I will continue to follow until Dr. Stephan Bliss returns Antibiotic Ordered?: N/A Objective Vitals Vital Signs Date Time Temp Pulse Resp B/P (MAP) Pulse Ox O2 Delivery O2 Flow Rate FiO2 02/10/25 11:00 97.2 78 16 91/39 (56) 96 Nasal Cannula 2.0 02/09/25 20:00 28 Lab Results: 02/10/25 0648 02/10/25 0648 Coagulation Studies Laboratory Tests Test 01/28/25 06:02 01/28/25 06:59 Activated Partial Thromboplast Time 25 SECONDS (22-32) Prothrombin Time 10.7 SECONDS (9.0-12.0) INR International Normalized Ratio 1.0 INR Coagulation Comments VICKEY LAURA MD Feb 10, 2025 13:17
--- NOTE | 2025-02-10 17:41 | PROGRESS NOTE- Residence ---
Progress Note - Resident Providers to CC Resident Creating Document: FELECIA PATEL, RES ~ Antibiotic Timeout Antibiotic Ordered?: No Subjective The patient was seen and examined at bedside today in PCU. Chest tube removed today, restarted Eliquis and stopped antibiotics. Might be able to go home tomorrow. Objective Vital Signs Date Time Temp Pulse Resp B/P (MAP) Pulse Ox O2 Delivery O2 Flow Rate FiO2 02/10/25 16:19 78 20 98 Nasal Cannula* 3 32 02/10/25 11:00 97.2 91/39 (56) Result Diagram: 02/10/2548 02/10/2548 General: Awake and alert, not in acute distress, on 2L of O2 through nasal cannula HEENT: Conjunctiva pink, Sclera clear, Mucus Membranes moist. Neck: Supple without masses and tenderness. Resp: Bilateral diminished breath sounds heard, right lateral chest covered with surgical dressing Heart: Regular Rate and rhythm, normal S1 and S2 without murmur, rub or gallop. Abdomen: Soft and non tender no organomegaly Extremities: No cyanosis, clubbing or edema. Skin: Warm and Dry. Coagulation Studies Laboratory Tests Test 01/28/25 06:02 01/28/25 06:59 Activated Partial Thromboplast Time 25 SECONDS (22-32) Prothrombin Time 10.7 SECONDS (9.0-12.0) INR International Normalized Ratio 1.0 INR Coagulation Comments Plan Plan Acute hypoxemic respiratory failure, improved Acute exacerbation of chronic CHF, preserved ejection fraction Large right pleural effusion s/p thoracentesis, 01/29/2025 Right trapped lung S/p right thoracotomy and decortication of left lung, talc pleurodesis and chest tube placement, 02/04/2025 The patient underwent right thoracoscopic exploration of pleural space with right thoracotomy, decortication of left upper, middle and lower lobes, talc pleurodesis and chest tube placement by Dr. Bliss on 02/04/2025. Her chest tube was removed today by Dr. Smith. Discontinued IV antibiotics and restarted Eliquis. Currently on 2 L of oxygen through nasal cannula. Dilaudid OUTDOOR STUDIES PROFESSOR pump discontinued, patient had been barely using it. Decreased her methylprednisolone to IV 40 daily. Hypertensive emergency, resolved Continue lisinopril 40 mg daily and carvedilol 3.125 mg b.i.d. Paroxysmal atrial fibrillation Sinus rhythm currently. Rate is controlled, less than 110. Eliquis on hold after surgery. Troponinemia likely secondary to type 2 MA Continue to monitor. Diabetes mellitus HB A1c 9.8. Blood sugars controlled. Continue 20 units of Lantus b.i.d. along with high-dose sliding scale Humalog. Severe protein malnutrition Hypoalbuminemia. Ensure protein shakes. Continue to monitor CMP. CVA/TIA Continue atorvastatin 40 mg p.o. daily, Plavix 75 mg. Substance use disorder Drug screen positive for amphetamines. Substance use navigator consulted. 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 Code status: Full code DVT prophylaxis: Eliquis Diet: Carb controlled diet PT: Home with barriers Prognosis: Guarded Disposition: Continue care in the medical [facility]. Anticipate discharge in the next 24 hours. Felecia Patel MD Internal Medicine Resident, PGY-2 The patient was seen, examined and discussed with the attending physician, Dr. Giraldo. Date of Service: Feb 10, 2025 Billing Provider: LIDIA GIRALDO MD,FELECIA ZAYAS, RES Feb 10, 2025 17:41
[2025-02-10] MEDS: HYDROcodone/acetaminophen 10/325mg tab PO PRN (18:03)
[2025-02-11] VITALS (12 sets, daily range): BP systolic 80–134; BP diastolic 36–62; PULSE 61–72; RESP 12–20; TEMP 97.5–97.6; O2SAT 95–99
[2025-02-11] MEDS: normal saline 1000ML IV soln IVB ONE (04:14)
--- NOTE | 2025-02-11 05:16 | RADIOLOGY REPORT ---
CHEST RADIOGRAPH Indication: Status post chest tube placement, subcutaneous emphysema with hypotension Technique: Single frontal view of the chest was obtained COMPARISON: DI CHEST,SINGLE VIEW on DOS: 02/10/25, DI CHEST,SINGLE VIEW on DOS: 02/09/25, DI CHEST,SINGLE VIEW on DOS: 02/08/25, DI CHEST,SINGLE VIEW on DOS: 02/07/25, DI CHEST,SINGLE VIEW on DOS: 02/06/25 FINDINGS: Lines and Tubes: Right basilar chest tube. Lungs: Increased interstitial prominence. This may represent pulmonary vascular congestion and/or viral pneumonia. Pleura: No effusion. No pneumothorax. Cardiomediastinal contours: Unremarkable Bones: Unremarkable IMPRESSION: Right basilar chest tube. No pneumothorax. Small volume subcutaneous emphysema along the right chest.
[2025-02-11 06:49] LABS: MEAN PLATELET VOLUME 9.9 FL (7.4-10.4); RED CELL DISTRIBUTION WIDTH 15.2 % (11.5-14.5)
[2025-02-11 07:27] LABS: CREATININE 1.11 MG/DL (0.40-0.90); PHOSPHORUS 4.3 MG/DL (2.3-4.5); TOTAL CARBON DIOXIDE 28.5 MMOL/L (24-32); eCRCL 43 ML/MIN; eGFR 50 ML/MIN
[2025-02-11] MEDS: methylPREDNISolone sod succ/PF 40mg inj. IV SCH (08:11)
[2025-02-11] MEDS: dextrose 50%-water 50ml dispensing syringe IV PRN (08:19)
[2025-02-11] MEDS ORDERED: INSU100V11 SQ (13:37)
[2025-02-11] MEDS ORDERED: FURO-150 PO (13:37)
[2025-02-11] MEDS ORDERED: PRED10TA23 PO (13:38)
--- NOTE | 2025-02-11 16:31 | DISCHARGE SUMMARY-Residence ---
Discharge Summary Providers to Resident Creating Document: ARYA PATEL, RES ~ Discharge Summary Admission Diagnosis: recurrent right effusion Hospital Course DATE OF ADMISSION: 01/28/2025 DATE OF DISCHARGE: 02/11/2025 Discharge disposition: Home Imaging: X-ray chest 01/28/2025: 1. Progressive now large right pleural effusion. 2. Small left pleural effusion. 3. Cardiomegaly. 01/29/2025 chest x-ray: Decreased now small right pleural effusion. No pneumothorax. CT chest 01/30/2025: 1. Medium-sized right-sided pleural effusion with possible loculation. 2. Small left-sided pleural effusion with atelectasis of the left lung base. 3. Masslike area of consolidation versus rounded atelectasis measuring 2.5 x 2.3 cm of the anterior aspect of the right middle lobe. 4. Sclerosis with multiple prior anterior ribs which may be sequelae of prior fr acture of the 2nd, 3rd, 4th, 5th, 6th ribs. 5. Sclerosis of the inferior sternal body of indeterminate etiology. Chest x-ray 01/30/2025: 1. Compared to previous exam there has been placement of a right-sided chest tube. There is continuing evidence of loculated fluid and consolidation of the right lower lung zone Echocardiogram 01/31/2025: Overall LVEF is 55-60%. Normal LV size and function. Moderate concentric hypertrophy. RV is normal size and function. Trileaflet AV appears mildly sclerotic without stenosis or insufficiency by color and spectral flow Doppler. Mild MV annular calcification without stenosis. Trace regurgitation by color and spectral flow Doppler. TV appears structurally normal with trace regurgitation by color and spectral flow Doppler. Normal PV without stenosis, physiologic insufficiency by color and spectral flow Doppler. Normal pericardium. No effusion. Chest x-ray 02/04/2025: Interval placement of an endotracheal tube terminating about 1 cm above the jessica. Recommend pulling back about 2 cm for more optimal positioning. Right-sided chest tube is noted terminating over the Right medial Upper lung zone with interval improvement in the right sided pleural effusion . Residual small to moderate right-sided pleural effusion with associated atelectasis / pneumonia. Left lower lung zone atelectasis. Chest x-ray 02/11/2025: Right basilar chest tube. No pneumothorax. Small volume subcutaneous emphysema along the right chest. Discharge Diagnosis\Comment: Acute hypoxemic respiratory failure, improved Acute exacerbation of chronic CHF, preserved ejection fraction Large right pleural effusion s/p thoracentesis, 01/29/2025 Right trapped lung S/p right thoracotomy and decortication of left lung, talc pleurodesis and chest tube placement, 02/04/2025 Hypertensive emergency, resolved Paroxysmal atrial fibrillation Troponinemia likely secondary to type 2 GA Diabetes mellitus Severe protein malnutrition Hypoalbuminemia. History of CVA/TIA Substance use disorder Head lice infestation Operations\Procedures: Right-sided thoracentesis: on 01/29/[address] Lazcano Right thoracotomy/decortication/talc pleurodesis/chest tube placement: On 02/04/[address] Bliss Consultants: Dr. Bliss, surgeon Dr. Lazacno, secondary social studies teacher Complications: None Condition on DC: Stable New Medications: Furosemide (Lasix) 20 Mg Tablet 20 MG PO DAILY for 30 Days, #30 TAB Insulin Lispro (Humalog) 100 Unit/Ml Vial 1 UNITS SQ ACHS for 30 Days, #2 VIAL Take the insulin as per sliding scale Prednisone (Prednisone) 10 Mg Tablet 0 PO DAILY, #42 TAB Take 4 tabs daily x4 days, then 3 daily x4 days 2 daily x4 days 1 daily x4 days 1/2 daily x4 days then STOP Continued Medications: Amiodarone Hcl (Cordarone) 200 Mg Tablet 1 TAB PO DAILY for 30 Days, #30 TAB Apixaban (Eliquis) 5 Mg Tablet 1 TAB PO Q12H for 30 Days, #60 TAB 0 Refills Atorvastatin Calcium (Atorvastatin Calcium) 40 Mg Tablet 1 TAB PO DAILY Clopidogrel Bisulfate (Clopidogrel) 75 Mg Tablet 1 TAB PO DAILY Insulin Glargine,Hum.rec.anlog (Basaglar Kwikpen U-100) 100 Unit/Ml (3 Ml) Insuln.pen 30 UNIT SQ QPM Ipratropium/Albuterol Sulfate (Combivent Respimat Inhal Big Pool) 20 Mcg-100 Mcg/Actuation Aer.w.adap 2 PUFFS IH Q4H PRN for SOB or wheezing, #1 INH Lisinopril (Lisinopril) 20 Mg Tablet 1 TAB PO DAILY for 30 Days, #30 TAB Loperamide HCl (Imodium A-D) 2 Mg Capsule 1 CAP PO Q8H for 5 Days, #15 CAP 0 Refills Discharge Summary: The patient is a 59-year-old female with past medical history of CVA, AFib, CHF, hypertension, COPD, diabetes mellitus, presented to the ED with complaints of worsening shortness of breath associated with orthopnea, PND and pedal edema. On evaluation in the ED, patient had large right pleural effusion. She was started on Lasix which did not resolve the pleural effusion. She eventually underwent right thoracentesis by the secondary social studies teacher which yielded 1.1 L of transudative fluid. Postprocedure x-ray and CT chest still showed right pleural effusion with possible loculations. General surgeon, Dr. Bliss consulted and the patient underwent right thoracoscopy with exploration of pleural space with right thoracotomy, decortication of left upper, middle and lower lobes, talc pleurodesis and chest tube placement on 02/04/2025. She was later managed in the ICU, extubated and sent to the floors. She received IV clindamycin after the surgery. She received insulin for diabetes. She was also interested with lice, received permethrin cream weekly. She worked with Physical therapy who cleared her for home discharge. She also received resources for methamphetamine cessation. On the day of discharge, the patient was stable and had no new complaints. She was eager to go home. Advice at discharge: Follow up with PCP in one week. Continue follow up with Dr. Bliss, your surgeon. Monitor your blood pressures every day and maintain a log. Review the log with your primary care physician for dose changes in her medication. Recheck HB A1c in three months. Take 30 units of long-acting insulin (glargine) at night and short-acting insulin (Humalog) with meals as per sliding scale. Taper the steroids as instructed. Strict abstinence from illicit drugs is recommended. Follow up with a sr. logistics analyst for your heart failure. In the event of worsening of symptoms, call 911 or go to the ER immediately. Examination at discharge: General: Awake and alert, not in acute distress, on 2L of O2 through nasal cannula HEENT: Conjunctiva pink, Sclera clear, Mucus Membranes moist. Neck: Supple without masses and tenderness. Resp: Bilateral diminished breath sounds heard, right lateral chest covered with surgical dressing Heart: Regular Rate and rhythm, normal S1 and S2 without murmur, rub or gallop. Abdomen: Soft and non tender no organomegaly Extremities: No cyanosis, clubbing or edema. Skin: Warm and Dry. Vital Signs Date Time Temp Pulse Resp B/P (MAP) Pulse Ox O2 Delivery O2 Flow Rate FiO2 02/11/25 14:49 18 02/11/25 08:40 72 95 Nasal Cannula* 2 02/11/25 07:45 90/48 (62) 02/11/25 06:00 97.5 Laboratory Tests Test 02/09/25 17:32 02/09/25 20:14 02/10/25 06:48 02/10/25 07:09 Glucometer 337 mg/dl 247 mg/dl 173 mg/dl White Blood Count 21.9 X10'3 Red Blood Count 4.40 X10'6 Hemoglobin 11.8 g/dl Hematocrit 36.3 % Mean Corpuscular Volume 82.6 FL Mean Corpuscular Hemoglobin 26.8 PG Mean Corpuscular Hemoglobin Concent 32.4 g/dL Red Cell Distribution Width 15.2 % Platelet Count 133 X10'3 Mean Platelet Volume 9.3 FL Neutrophils (%) (Auto) 85.2 % Lymphocytes (%) (Auto) 8.1 % Monocytes (%) (Auto) 6.3 % Eosinophils (%) (Auto) 0.2 % Basophils (%) (Auto) 0.2 % Neutrophils # (Auto) 18.6 X10'3 Lymphocytes # (Auto) 1.8 X10'3 Monocytes # (Auto) 1.4 X10'3 Eosinophils # (Auto) 0.0 X10'3 Basophils # (Auto) 0.0 X10'3 CBC Comment Sodium Level 137 MMOL/L Potassium Level 5.3 MMOL/L Chloride Level 99 MMOL/L Carbon Dioxide Level 30.5 MMOL/L Anion Gap 8 Blood Urea Nitrogen 71 MG/DL Creatinine 1.13 MG/DL Estimated GFR/1.73 m2 49 ML/MIN BUN/Creatinine Ratio 62.8 Glucose Level 207 MG/DL Calcium Level 8.4 MG/DL Phosphorus Level 4.4 MG/DL Magnesium Level 2.2 MG/DL Total Bilirubin 0.5 MG/DL Aspartate Amino Transf (AST/SGOT) 45 U/L Alanine Aminotransferase (ALT/SGPT) 35 U/L Alkaline Phosphatase 78 IU/L Total Protein 5.7 G/DL Albumin 1.9 G/DL Globulin 3.8 G/DL Albumin/Globulin Ratio 0.5 Chemistry Comments Test 02/10/25 11:58 02/10/25 17:41 02/10/25 21:18 02/11/25 06:06 Glucometer 144 mg/dl 158 mg/dl 96 mg/dl White Blood Count 21.2 X10'3 Red Blood Count 4.03 X10'6 Hemoglobin 11.1 g/dl Hematocrit 33.6 % Mean Corpuscular Volume 83.3 FL Mean Corpuscular Hemoglobin 27.5 PG Mean Corpuscular Hemoglobin Concent 33.0 g/dL Red Cell Distribution Width 15.2 % Platelet Count 109 X10'3 Mean Platelet Volume 9.9 FL Neutrophils (%) (Auto) 81.7 % Lymphocytes (%) (Auto) 8.1 % Monocytes (%) (Auto) 8.0 % Eosinophils (%) (Auto) 2.1 % Basophils (%) (Auto) 0.1 % Neutrophils # (Auto) 17.3 X10'3 Lymphocytes # (Auto) 1.7 X10'3 Monocytes # (Auto) 1.7 X10'3 Eosinophils # (Auto) 0.4 X10'3 Basophils # (Auto) 0.0 X10'3 CBC Comment Sodium Level 136 MMOL/L Potassium Level 4.9 MMOL/L Chloride Level 100 MMOL/L Carbon Dioxide Level 28.5 MMOL/L Anion Gap 8 Blood Urea Nitrogen 74 MG/DL Creatinine 1.11 MG/DL Estimated GFR/1.73 m2 50 ML/MIN BUN/Creatinine Ratio 66.7 Glucose Level 82 MG/DL Calcium Level 8.1 MG/DL Phosphorus Level 4.3 MG/DL Magnesium Level 2.2 MG/DL Total Bilirubin 0.5 MG/DL Aspartate Amino Transf (AST/SGOT) 29 U/L Alanine Aminotransferase (ALT/SGPT) 24 U/L Alkaline Phosphatase 60 IU/L Total Protein 5.1 G/DL Albumin 1.7 G/DL Globulin 3.4 G/DL Albumin/Globulin Ratio 0.5 Chemistry Comments Test 02/11/25 08:03 02/11/25 08:22 02/11/25 09:34 02/11/25 12:11 Glucometer 62 mg/dl 179 mg/dl 133 mg/dl 249 mg/dl The patient was seen and evaluated with attending physician, Dr. Giraldo on the day of discharge. Time spent on discharge 35 minutes. *Problems/Diagnosis: (1) Trapped lung (2) Acute exacerbation of chronic obstructive airways disease Status: Acute (3) CHF exacerbation Status: Acute Total Time Spent on D/C: > 30 Minutes Counseling Services Smoking & Tobacco Cessation: > 10 Minutes Date of Service: Feb 11, 2025 Billing Provider: LIDIA GIRALDO MD, SOWMYA MANJARI, RES Feb 11, 2025 16:31
== END 2025-02-11 15:28 | disposition home health service (06) | DRG 133 ==
LOC: ER 02:05 → ED HOLD 04:53 → PCU 3S 17:06 → CICU 2S 02-04 09:56 → PCU 3S 02-06 17:32
PROVIDERS: ADMIT Internal Medicine Critical Care Medicine; ATTEND Family Medicine
PROC: 0W993ZZ Drainage of Right Pleural Cavity, Percutaneous Approach (ICD-10-PCS; principal; 2025-01-29)
PROC: BW241ZZ Computerized Tomography (CT Scan) of Chest and Abdomen using Low Osmolar Contrast (ICD-10-PCS; 2025-01-30)
PROC: 5A1945Z Respiratory Ventilation, 24-96 Consecutive Hours (ICD-10-PCS; 2025-02-04)
PROC: 0BNF0ZZ Release Right Lower Lung Lobe, Open Approach (ICD-10-PCS; 2025-02-04)
PROC: 0BNC0ZZ Release Right Upper Lung Lobe, Open Approach (ICD-10-PCS; 2025-02-04)
PROC: 0BND0ZZ Release Right Middle Lung Lobe, Open Approach (ICD-10-PCS; 2025-02-04)
PROC: 3E0L3GC Introduction of Other Therapeutic Substance into Pleural Cavity, Percutaneous Approach (ICD-10-PCS; 2025-02-04)
DX: J96.01 Acute respiratory failure with hypoxia (principal); E43 Unspecified severe protein-calorie malnutrition; I16.1 Hypertensive emergency; I21.A1 Myocardial infarction type 2; I50.33 Acute on chronic diastolic (congestive) heart failure; I48.0 Paroxysmal atrial fibrillation; I11.0 Hypertensive heart disease with heart failure; E11.65 Type 2 diabetes mellitus with hyperglycemia; J43.9 Emphysema, unspecified; G35.D Multiple sclerosis, unspecified; B19.20 Unspecified viral hepatitis C without hepatic coma; Z68.31 Body mass index [BMI] 31.0-31.9, adult; E88.09 Other disorders of plasma-protein metabolism, not elsewhere classified; B85.0 Pediculosis due to Pediculus humanus capitis; I48.91 Unspecified atrial fibrillation; J44.89 Other specified chronic obstructive pulmonary disease; M79.7 Fibromyalgia; Z59.00 Homelessness unspecified; Z86.73 Personal history of transient ischemic attack (TIA), and cerebral infarction without residual deficits
CPT/HCPCS: 32555; 36415; 36600; 71045; 71260; 80053; 80305; 82803; 82945; 82948; 83036; 83605; 83615; 83735; 83880; 83986; 84100; 84132; 84145; 84157; 84478; 84484; 85018; 85025; 85610; 85651; 85730; 86885; 86900; 86901; 87040; 87070; 87075; 87081; 87102; 87324; 87449; 89051; 93005; 93306; 94002; 94003; 94640; 94760; 96372; 96374; 96375; 97110; 97161; 97530; 99285; A4615; A4618; A4649; A6209; A6213; A6222; A6250; A6253; A6258; A6402; A6446; A6449; A7015; A7048; C1729; C1758; C9250; G0378; J0690; J1100; J1171; J1815; J1938; J2250; J2270; J2405; J2704; J2919; J3010; J3480; J3490; J7030; J7040; J7120; P9045; Q9967